=== PATIENT | female | born 1965 | race Caucasian/White ===

== ENCOUNTER 2020-04-01 13:54 | Outpatient (REF) | payer OTHER, SELFPAY ==
[2020-04-01 16:38] LABS: Hematocrit 41.9 % (37-47); Hemoglobin 13.8 g/dl (12.0-16.0); Mean Corpuscular HGB Conc 32.9 g/dl (31.0-35.0); Mean Corpuscular Hemoglobin 31.4 pg (27.0-33.0); Mean Corpuscular Volume 95.2 fL (80-98); Platelet Count 261 X10*3/uL (160-400); Red Cell Distribution Width 12.9 % (11.0-16.0); White Blood Count 8.7 X10*3/uL (4.8-10.8)
[2020-04-01 17:05] LABS: Alanine Aminotransferase 13 U/L (0-31); Albumin Level 4.3 g/dL (3.5-5.0); Alkaline Phosphatase 83 U/L (39-117); Anion Gap 16 (12-20); Aspartate Amino Transferase 20 U/L (5-31); Bilirubin Total 1.1 mg/dL (0.0-1.0); Blood Urea Nitrogen 8 mg/dL (9-16); Calcium 9.2 mg/dL (8.4-10.2); Carbon Dioxide 28 mmol/L (22-29); Chloride 103 mmol/L (96-108); Cholesterol 165 mg/dL; Estimated Glomerular Filt Rate > 60; Glucose Fasting 97 mg/dL (60-99); HDL Cholesterol 61 mg/dL; LDL Cholesterol Calculated 86 mg/dl; Potassium 4.4 mmol/l (3.3-5.1); Sodium 143 mmol/L (135-145); Total Protein 7.2 g/dL (6.5-8.0); Triglycerides 91 mg/dL
[2020-04-01 17:07] LABS: Creatinine Urine 33.69 mg/dL; Microalbumin Urine < 5.0 mg/L
[2020-04-01 17:27] LABS: Thyroid Stimulating Hormone 1.47 mIU/mL (0.32-4.0)
[2020-04-02 05:33] LABS: Estimated Average Glucose 108 mg/dL; Hemoglobin A1c % 5.4 %
== END 2020-04-01 13:55 | disposition home or self-care (01) ==
LOC: HO.HMGCLDS 13:54
PROVIDERS: PCP Internal Medicine; Visit Provider Internal Medicine
DX: F32.9 Major depressive disorder, single episode, unspecified (principal); R32 Unspecified urinary incontinence; I25.10 Atherosclerotic heart disease of native coronary artery without angina pectoris; I42.9 Cardiomyopathy, unspecified; R73.9 Hyperglycemia, unspecified; E78.5 Hyperlipidemia, unspecified; G62.9 Polyneuropathy, unspecified
CPT/HCPCS: 36415; 80053; 80061; 82043; 83036; 84443; 85027

== ENCOUNTER 2020-04-21 10:39 | Outpatient (REF) | payer OTHER, SELFPAY ==
--- NOTE | 2020-04-21 10:42 | MM_ITS ---
EXAMINATION: MM SCREENING DIGITAL MAMMOGRAPHY, BILATERAL CLINICAL INFORMATION: Screening. Asymptomatic. Age 54, prior outside mammography requested. The lifetime risk of breast cancer based on the Tyrer-Cuzick Model is 12%. COMPARISON: None. TECHNIQUE: Digital mammography is performed in craniocaudal and mediolateral oblique views along with computer-aided detection (CAD). FINDINGS: There are scattered areas of fibroglandular density (ACR BI-RADS breast composition Category b). There are no significant masses, abnormal calcifications, or other abnormalities. There are numerous bilateral vascular calcifications. The skin contours are smooth. MM/MM screening mammo BI IMPRESSION: No mammographic evidence of malignancy. ASSESSMENT: BI-RADS 2: Benign RECOMMENDATION: Routine annual mammography screening. This patient's information was entered into a reminder system with a target due date for their next mammogram.
== END 2020-04-21 10:40 | disposition home or self-care (01) ==
LOC: HO.MAMMO 10:39
PROVIDERS: PCP Internal Medicine; Visit Provider Internal Medicine
DX: Z12.31 Encounter for screening mammogram for malignant neoplasm of breast (principal); F32.9 Major depressive disorder, single episode, unspecified
CPT/HCPCS: 77067

== ENCOUNTER → 2020-05-04 08:32 | Outpatient (BNVA) | payer OTHER, SELFPAY | PROVIDERS: PCP Internal Medicine; Visit Provider Orthopaedic Surgery | DX: M65.312 Trigger thumb, left thumb (principal); M65.331 Trigger finger, right middle finger; Z79.02 Long term (current) use of antithrombotics/antiplatelets | CPT/HCPCS: 20550; 99202; 99214; J1100 ==

== ENCOUNTER 2020-08-30 16:07 | Outpatient (REF) | payer OTHER, SELFPAY ==
--- NOTE | ~2020-08-30 | XR_ITS ---
EXAMINATION: XR SHOULDER, RIGHT CLINICAL INFORMATION: Pain right shoulder COMPARISON: Shoulder radiographs 01/19/2020 TECHNIQUE: Right shoulder is imaged in 3 views. FINDINGS: There are multiple calcifications in region of distal superior rotator cuff consistent with calcific tendinosis. There is no fracture, dislocation, or destructive process. No erosive change. The glenohumeral joint is normal. The acromioclavicular alignment is normal. There are scattered vascular calcifications right axilla and upper arm. XR/XR shoulder RT min 2V IMPRESSION: Calcific tendinosis distal superior rotator cuff.
== END 2020-08-30 16:08 | disposition home or self-care (01) ==
LOC: HO.HMGCX 16:07
PROVIDERS: PCP Internal Medicine; Visit Provider Hospitalist
DX: M25.511 Pain in right shoulder (principal)
CPT/HCPCS: 73030

== ENCOUNTER 2022-02-20 12:01 | Emergency (ER) | payer OTHER, SELFPAY ==
--- NOTE | ~2022-02-20 | XR_ITS ---
EXAMINATION: XR LUMBOSACRAL SPINE CLINICAL INFORMATION: Lower back pain COMPARISON: None TECHNIQUE: AP and lateral views of the lumbar spine with an additional coned down lateral spot view of the lumbosacral junction. FINDINGS: 5 non-rib bearing lumbar type vertebral bodies are seen. No compression fracture seen. Multilevel degenerative disc disease greatest at L4-L5. Multilevel facet arthropathy greatest in the lower lumbar spine. Bilateral sacroiliac osteoarthritis. XR/XR lumbar spine 2-3V IMPRESSION: Multilevel degenerative changes, greater than typically seen for the patient's age, but no acute osseous abnormality.
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
[2022-02-20 12:48] VITALS: BP 157/94; PULSE 82; RESP 18; TEMP 36.4; O2SAT 98; BMI 28.0
--- NOTE | 2022-02-20 12:53 | PC.NURSE ---
pt not actively SI at this time reports recent SI attempt prior to recent admission at APTU at [facility]. reports she is here d/t increasing depression and no assistance was offered s/p dc from inpatient this morning. pt reports recieving 2mg ativan prior to dc.
[2022-02-20 13:12] LABS: Amphetamine Screen Urine Not Detected (Not Detect); Barbiturates, Urine Not Detected (Not Detect); Benzodiazepines Screen Urine Not Detected (Not Detect); Cannabinoid Screen Urine POSITIVE (Not Detect); Cocaine Screen Urine Not Detected (Not Detect); Fentanyl, urine Not Detected (Not Detect); Opiate Screen Urine Not Detected (Not Detect); Phencyclidine Screen Urine Not Detected (Not Detect)
[2022-02-20 13:30] LABS: MANUAL DIFF FLAG NO
[2022-02-20 13:35] LABS: Basophils Absolute Auto 0.1 X10*3/uL (0.0-0.2); Basophils Percent Auto 0.8 % (0-2); Eosinophils Absolute Auto 0.3 X10*3/uL (0.0-0.4); Eosinophils Percent Auto 2.6 % (0-4); Hematocrit 36.5 % (37.0-47.0); Hemoglobin 12.1 g/dl (12.0-16.0); Imm Gran Abs Auto 0.04 X10*3/uL (0.00-0.03); Imm Gran Pct Auto 0.4 % (0.0-0.4); Lymphocytes Percent Auto 40.4 % (20-40); Mean Corpuscular HGB Conc 33.2 g/dl (31.0-35.0); Mean Corpuscular Hemoglobin 30.5 pg (27.0-33.0); Mean Corpuscular Volume 91.9 fL (80.0-98.0); Monocytes Absolute Auto 0.7 X10*3/uL (0.1-1.2); Monocytes Percent Auto 6.5 % (2-11); Neutrophils Absolute Auto 4.9 x10*3/uL (2.0-8.3); Neutrophils Percent Auto 49.3 % (45-73); Platelet Count 297 X10*3/uL (160-400); Red Blood Count 3.97 X10*6/uL (4.20-5.50); Red Cell Distribution Width 14.5 % (11.0-16.0)
[2022-02-20 13:46] LABS: COVID-19 Test Negative (Negative); IDNOW Serial# 16C4AD1C
[2022-02-20 13:48] LABS: Ethanol < 10 mg/dL
[2022-02-20 13:49] LABS: Alanine Aminotransferase 17 U/L (0-31); Albumin Level 3.7 g/dL (3.5-5.0); Alkaline Phosphatase 84 U/L (39-117); Anion Gap 15 (12-20); Aspartate Amino Transferase 27 U/L (5-31); Bilirubin Total 1.1 mg/dL (0.0-1.0); Blood Urea Nitrogen 12 mg/dL (9-16); Carbon Dioxide 27 mmol/L (22-29); Chloride 104 mmol/L (96-108); Creatinine Clr Calc Pharmacy 108.5; Estimated Glomerular Filt Rate > 60; Glucose Random 93 mg/dL (60-115); Potassium 5.1 mmol/L (3.3-5.1); Sodium 141 mmol/L (135-145); Total Protein 6.8 g/dL (6.5-8.0)
--- NOTE | 2022-02-20 14:23 | MHC.CARE ---
CARE Team left with [facility] SW to discuss PTs discharge plan.
--- NOTE | 2022-02-20 14:34 | MHC.CARE ---
CARE Team met with Pt who presented to [facility] ED at 1201 after being discharged from [facility] today 1123am. Pt stated [facility] told me to come here if I didn't like there discharge plan. Pt states that she was not provided discharge plan or referrals. Pt stated feeling frustrated living on third floor- and having to walk to the third floor and she currently does not have the keys and the [facility]TU did not help her find a way to get back into her apartment at discharge. Pt stated that she has passive thoughts to jump off of the balcony in third floor apartment.
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
== END 2022-02-20 16:28 | disposition home or self-care (01) ==
PROVIDERS: Emergency Provider Emergency Medicine; PCP Internal Medicine
DX: F32.9 Major depressive disorder, single episode, unspecified (principal); M54.50 Low back pain, unspecified; S00.83XA Contusion of other part of head, initial encounter; W19.XXXA Unspecified fall, initial encounter; R53.81 Other malaise; G62.9 Polyneuropathy, unspecified; I10 Essential (primary) hypertension; E78.5 Hyperlipidemia, unspecified; F17.210 Nicotine dependence, cigarettes, uncomplicated; F12.90 Cannabis use, unspecified, uncomplicated; Z20.822 Contact with and (suspected) exposure to COVID-19; Z91.51 Personal history of suicidal behavior; Z62.810 Personal history of physical and sexual abuse in childhood; Z79.82 Long term (current) use of aspirin; Z79.02 Long term (current) use of antithrombotics/antiplatelets; Z79.899 Other long term (current) drug therapy; Y93.9 Activity, unspecified; Y92.039 Unspecified place in apartment as the place of occurrence of the external cause; Y99.9 Unspecified external cause status
CPT/HCPCS: 36415; 72100; 80053; 80307; 82077; 85025; 87635; 99284

== ENCOUNTER 2022-04-04 10:35 | Inpatient (IN) | payer OTHER, SELFPAY ==
[2022-04-04] VITALS (10 sets, daily range): BP systolic 88–171; BP diastolic 54–110; PULSE 77–98; RESP 16–18; TEMP 35.9–36.7; O2SAT 98–100; BMI 29.3
--- NOTE | ~2022-04-04 | CT_ITS ---
EXAMINATION: CT HEAD WITHOUT CONTRAST CLINICAL INFORMATION: Syncope COMPARISON: 10/02/2018 TECHNIQUE: Contiguous axial imaging was performed from the skull base to vertex without intravenous administration of contrast. This CT examination was performed using dose optimization techniques as appropriate, variously including the following: *Automated exposure control *Adjustment of mA and/or kV according to patient size (this includes techniques or standardized protocols for targeted exams where dose is matched to indication/reason for exam; i.e. extremities or head) *Use of iterative reconstruction technique DLP: 646 mGy-cm FINDINGS: There is no evidence of acute intracranial hemorrhage or territorial infarction. No abnormal mass effect or midline shift is seen. Reeves to white matter differentiation is well preserved. No extra-axial fluid collections are identified. No hydrocephalus. No significant volume loss. Fairly extensive patchy and confluent subcortical, periventricular and deep white matter low-attenuation changes redemonstrated. No acute osseous or soft tissue abnormality. The mastoid air cells and visualized portions of the paranasal sinuses are well aerated. CT/CT head/brain wo IV con IMPRESSION: No acute intracranial pathology. Stable moderate to severe diffuse white matter changes. Statistically this relates to chronic small vessel ischemic disease, however other etiologies such as demyelinating disease could also be contributing..
--- NOTE | ~2022-04-04 | XR_ITS ---
EXAMINATION: XR CHEST CLINICAL INFORMATION: Syncope COMPARISON: January 19, 2020 TECHNIQUE: 2 views of the chest were obtained. FINDINGS: No significant abnormality is noted involving the heart, lungs, mediastinum, bony thorax or soft tissues. There is calcification of anterior longitudinal ligament. XR/XR chest 2V IMPRESSION: No acute disease
--- NOTE | 2022-04-04 11:22 | ECG_ITS ---
Test Reason : SYNCOPE Blood Pressure : / mmHG Vent. Rate : 086 BPM Atrial Rate : 086 BPM P-R Int : 168 ms QRS Dur : 090 ms QT Int : 412 ms P-R-T Axes : 023 -33 023 degrees QTc Int : 493 ms Normal sinus rhythm Left anterior fascicular block Intra-ventricular conduction delay Minimal voltage criteria for LVH, may be normal variant ( R in aVL ) Prolonged QT Abnormal ECG When compared with ECG of 19-JAN-2020 13:04, No significant change was found Referred By: Generic ED Physician Electronically Signed By:MARLENE NORRIS MD
[2022-04-04 11:40] LABS: MANUAL DIFF FLAG NO
[2022-04-04 11:42] LABS: Basophils Percent Auto 0.5 % (0-2); Eosinophils Absolute Auto 0.1 X10*3/uL (0.0-0.4); Eosinophils Percent Auto 1.1 % (0-4); Hematocrit 41.7 % (37.0-47.0); Imm Gran Abs Auto 0.03 X10*3/uL (0.00-0.03); Imm Gran Pct Auto 0.5 % (0.0-0.4); Lymphocytes Absolute Auto 2.5 X10*3/uL (1.2-4.9); Lymphocytes Percent Auto 37.4 % (20-40); Mean Corpuscular HGB Conc 33.6 g/dl (31.0-35.0); Mean Corpuscular Hemoglobin 30.3 pg (27.0-33.0); Mean Corpuscular Volume 90.3 fL (80.0-98.0); Mean Platelet Volume 10.7 fL (9.4-12.3); Monocytes Absolute Auto 0.5 X10*3/uL (0.1-1.2); Monocytes Percent Auto 6.9 % (2-11); Neutrophils Absolute Auto 3.6 x10*3/uL (2.0-8.3); Neutrophils Percent Auto 53.6 % (45-73); Platelet Count 276 X10*3/uL (160-400); Red Blood Count 4.62 X10*6/uL (4.20-5.50); Red Cell Distribution Width 13.2 % (11.0-16.0); White Blood Count 6.7 X10*3/uL (4.8-10.8)
--- NOTE | 2022-04-04 11:53 | ED_ITS ---
HPI - General Adult General Chief complaint: Syncope Stated complaint: fall on sunday Time Seen by Provider: 04/04/22 11:53 Source: patient and EMS Mode of arrival: EMS Limitations: no limitations History of Present Illness HPI narrative: Patient is a 56 year old assigned female at with a history of depression and CAD presenting to the emergency department today with multiple near snycopal episodes. Patient states that over the last few weeks she has had multiple near syncopal episodes. Patient states that she stopped taking her carvadilol because she was worried it was her blood pressure that was doing it. Patient states that she does not want to return home and would rather be admitted or placed in short term rehab to have help taking care of this issue. Patient denies any abdominal pain, nausea, vomiting, fever, chills, blurry vision, double vision, loss of vision, chest pain, difficulty breathing, shortness of breath, back pain, night sweats, pain with urination, increased urinary frequency, increased urinary urgency, vaginal bleeding, vaginal discharge, blood in her urine or stool, recent trauma or falls, bowel incontinence, bladder incontinence, bowel retention, bladder retention, or any other complaints at this time. Onset (ago): week(s) Severity scale (1-10): 2 Relieving factors: none Exacerbating factors: none Associated symptoms: denies other symptoms Treatments prior to arrival: none Related Data Home Medications Medication Instructions Recorded Confirmed [id number] 1 tab PO DAILY 03/01/22 03/01/22 fumarate 7.5 mg-folic acid 400 mcg tablet Previous Rx's Medication Instructions Recorded blood pressure monitor #1 ea 04/29/20 atorvastatin 80 mg tablet 80 mg PO DAILY #90 tabs 03/01/22 carvedilol 25 mg tablet 25 mg PO BID #180 tabs 03/01/22 clopidogrel 75 mg tablet 75 mg PO DAILY #90 tabs 03/01/22 gabapentin 400 mg capsule 800 mg PO .4 times a day #180 caps 03/01/22 pantoprazole 20 mg tablet,delayed 20 mg PO DAILY #90 tabs 03/01/22 release aspirin 81 mg tablet,delayed 81 mg PO DAILY #90 tabs 03/13/22 release duloxetine 60 mg capsule,delayed 60 mg PO DAILY #90 caps 03/13/22 release Allergies Allergy/AdvReac Type Severity Reaction Status Date / Time aspirin [ASPIRIN] Allergy Unknown SENSITIVITY Verified 03/01/22 09:49 lisinopril Allergy Unknown falls, Verified 03/01/22 09:49 muscle weakness Review of Systems Constitutional: Constitutional: Reports no additional constitutional complaints, Denies chills, Denies fever(s) and Denies night sweats Eyes: Eyes: Reports no additional eye complaints, Denies blurry vision, Denies change in vision, Denies diplopia, Denies eye discharge, Denies loss of vision and Denies eye pain ENT: Denies dizziness Cardiovascular: Cardiovascular: Reports no additional cardiovascular complaints, Denies chest pain, Denies lightheadedness, Denies Loss of Consciousness and Denies dyspnea Respiratory: Respiratory: Reports no additional respiratory complaints and Denies dyspnea Gastrointestinal: Gastrointestinal: Reports no additional gastrointestinal complaints, Denies abdominal pain, Denies melena, Denies hematochezia, Denies change in bowel habits and Denies change in stool character Genitourinary: Genitourinary: Denies hematuria, Denies urinary frequency, Denies dysuria, Denies urinary incontinence, Denies urinary hesitancy and Denies urinary urgency Musculoskeletal: Musculoskeletal: Reports no additional musculoskeletal complaints, Denies numbness and Denies tingling Neurologic: Denies dizziness, Denies loss of vision, Denies numbness and Denies tingling Psychiatric: Psychiatric: Reports no additional psychiatric complaints Endocrine: Endocrine: Reports no additional endocrine complaints Hematologic/Lymphatic: Hematologic/Lymphatic: Reports no additional hematologic/lymphatic complaints Allergic/Immunologic: Allergic/Immunologic: Reports no additional allerg ic/immunologic complaints [facility] Past Medical History Attestation statement: The following information was validated with the patient. Source: old records reviewed Medical History CAD (coronary artery disease) Cardiomyopathy Depression Dyslipidemia GERD (gastroesophageal reflux disease) History of mammogram HTN (hypertension) Hyperglycemia Neuropathy Normal Pap smear Peripheral neuropathy Urinary incontinence Surgical History Breast abscess CTS (carpal tunnel syndrome) H/O cardiac catheterization (~01/2020) H/O colonoscopy History of ankle surgery Family History Family History Father No problems noted. Mother No problems noted. Brother No problems noted. Sister No problems noted. Sister No problems noted. Son No problems noted. Social History Social History Housing: Apartment Patient Tobacco Use Status: Former Tobacco user Cigarettes Per Day: 5 Years Smoked: 20 e-Cigarette/Vaping Use: Never Used Second Hand Smoke Exposure: No Use of substances other than those prescribed or required for medical reasons: No Substance Use Type: Marijuana Advance Directives: No Current occupational status: unemployed Cognitive needs: No Hearing needs: No Vision needs: Yes Physical Exam ED Vital Signs: Vital Signs - 24 hr 04/04/22 11:18 04/04/22 15:04 04/04/22 15:14 Temperature 96.7 F L 97.9 F Pulse Rate 98 78 79 Respiratory Rate 18 18 Blood Pressure 90/70 143/85 H 153/93 H Pulse Oximetry 100 100 Oxygen Delivery Method Room Air Room Air 04/04/22 15:15 04/04/22 15:17 04/04/22 16:06 Temperature Pulse Rate 83 92 92 Respiratory Rate Blood Pressure 96/57 L 122/54 L 122/54 L Pulse Oximetry Oxygen Delivery Method 04/04/22 16:49 04/04/22 16:49 Temperature 98.0 F Pulse Rate 77 Respiratory Rate 16 Blood Pressure 155/89 H Pulse Oximetry 98 98 Oxygen Delivery Method Room Air Room Air BMI result Body Mass Index 29.3 Const General: cooperative, no acute distress, alert and awake Nutritional Appearance: well nourished Orientation/consciousness: patient oriented x3 Limitations: no limitations HENMT Head: Yes normal to inspection and Yes atraumatic Ears: hearing grossly normal bilaterally and external ears normal General nose exam: Normal external nose present, no nasal discharge noted and no epistaxis Face and sinus: Yes normal facial exam, No abrasion and No laceration Mouth: Normal oral and palatal mucosa present, no drooling and no muffled voice Eyes General: appearance normal, both eyes and all related structures Periorbital: periorbital findings normal Eyelids: Yes eyelids normal Conjunctivae: conjunctivae normal Pupils: Equal, round and reactive pupils present EOM: EOMs intact bilaterally Neck Neck: Yes normal visual inspection, Yes full ROM and Yes no lymphadenopathy Chest Chest palpation & inspection: normal inspection of the chest Resp Effort & Inspection: normal respiratory effort and able to speak in complete sentences Auscultation: clear to auscultation bilaterally Cardio Rate: regular rate Rhythm: regular rhythm GI Inspection: Yes normal to inspection Neuro General: patient oriented x3 and moves all extremities Cranial nerves: Yes Equal, round and reactive pupils present Cognition (Neuro): normal cognition Motor exam (neuro): 5/5 motor strength present throughout Sensory Exam: Normal double simultaneous stimulation for sensation Coordination: [id number]-[id number] test normal Extrem General: Yes normal to inspection, Yes full ROM and Yes capillary refill normal Psych Appearance: grossly normal Mental Status: mental status grossly normal Affect: normal affect Attitude: cooperative Thought process: Normal thought process present Thought content: Normal thought content present Insight: Good insight present (Psych) Medical Decision Making MDM Narrative Medical decision making narrative: Patient is a 56 year old assigned female at with a history of depression and CAD presenting to the emergency department today with intermittent near syncopal episodes. Patient's physical exam was unremarkable. Patient's blood work was unremarkable. Patient's EKG was unremarkable. Patient's chest x-ray and head CT showed no acute process. Patient's orthostatic vital signs were initially positive with a drop from 140s systolic to 90s systolic from lying to sitting. Patient to get an additional liter of fluids and have them repeated, if normal she will proceed with placement / PT evaluation, if abnormal, will attempt admission. I explained my physical exam findings as well as all test results to the patient. I answered all questions asked by the patient. Medical Records Medical records reviewed: Yes I reviewed the patient's medical records. Lab Data Lab results reviewed: Yes I reviewed the patient's lab results. Result diagrams: 04/04/22 11:34 04/04/22 11:34 Labs: Lab Results 04/04/22 04/04/22 04/04/22 Range/Units 11:34 11:34 11:34 WBC 6.7 (4.8-10.8) X10*3/uL RBC 4.62 (4.20-5.50) X10*6/uL Hgb 14.0 (12.0-16.0) g/dl Hct 41.7 (37.0-47.0) % MCV 90.3 (80.0-98.0) fL MCH 30.3 (27.0-33.0) pg MCHC 33.6 (31.0-35.0) g/dl RDW 13.2 (11.0-16.0) % Plt Count 276 (160-400) X10*3/uL MPV 10.7 (9.4-12.3) fL Immature Gran % (Auto) 0.5 H (0.0-0.4) % Neut % (Auto) 53.6 (45-73) % Lymph % (Auto) 37.4 (20-40) % [place] % (Auto) 6.9 (2-11) % Eos % (Auto) 1.1 (0-4) % Baso % (Auto) 0.5 (0-2) % Lymph # (Auto) 2.5 (1.2-4.9) X10*3/uL [place] # (Auto) 0.5 (0.1-1.2) X10*3/uL Eos # (Auto) 0.1 (0.0-0.4) X10*3/uL Baso # (Auto) 0.0 (0.0-0.2) X10*3/uL Abs Immat Gran (auto) 0.03 (0.00-0.03) X10*3/uL Absolute Neuts (auto) 3.6 (2.0-8.3) x10*3/uL Absolute Nucleated RBC 0.000 (0.0-0.012) X10*3/uL Nucleated RBC % (auto) 0.0 (0.0-0.2) /100WBC Sodium 137 (135-145) mmol/L Potassium 3.9 D (3.3-5.1) mmol/L Chloride 101 (96-108) mmol/L Carbon Dioxide 23 (22-29) mmol/L Anion Gap 17 (12-20) BUN 8 L (9-16) mg/dL Creatinine 0.75 (0.5-1.4) mg/dL Estim Creat Clear Calc 95.8 Estimated GFR > 60 Random Glucose 106 (60-115) mg/dL Calcium 9.3 (8.4-10.2) mg/dL Magnesium (1.6-2.6) mg/dL Total Bilirubin 2.2 H (0.0-1.0) mg/dL Direct Bilirubin 0.8 H (0.0-0.5) mg/dL AST 23 (5-31) U/L ALT 8 (0-31) U/L Alkaline Phosphatase 91 (39-117) U/L Troponin I High Sens 8.2 (<3.5-17.0) ng/L Total Protein 7.5 (6.5-8.0) g/dL Albumin 4.3 (3.5-5.0) g/dL Lipase 11 (8-78) U/L COVID-19 ([facility]) (Negative) COVID-19 Clin Com 04/04/22 04/04/22 Range/Units 14:16 14:17 WBC (4.8-10.8) X10*3/uL RBC (4.20-5.50) X10*6/uL Hgb (12.0-16.0) g/dl Hct (37.0-47.0) % MCV (80.0-98.0) fL MCH (27.0-33.0) pg MCHC (31.0-35.0) g/dl RDW (11.0-16.0) % Plt Count (160-400) X10*3/uL MPV (9.4-12.3) fL Immature Gran % (Auto) (0.0-0.4) % Neut % (Auto) (45-73) % Lymph % (Auto) (20-40) % [place] % (Auto) (2-11) % Eos % (Auto) (0-4) % Baso % (Auto) (0-2) % Lymph # (Auto) (1.2-4.9) X10*3/uL [place] # (Auto) (0.1-1.2) X10*3/uL Eos # (Auto) (0.0-0.4) X10*3/uL Baso # (Auto) (0.0-0.2) X10*3/uL Abs Immat Gran (auto) (0.00-0.03) X10*3/uL Absolute Neuts (auto) (2.0-8.3) x10*3/uL Absolute Nucleated RBC (0.0-0.012) X10*3/uL Nucleated RBC % (auto) (0.0-0.2) /100WBC Sodium (135-145) mmol/L Potassium (3.3-5.1) mmol/L Chloride (96-108) mmol/L Carbon Dioxide (22-29) mmol/L Anion Gap (12-20) BUN (9-16) mg/dL Creatinine (0.5-1.4) mg/dL Estim Creat Clear Calc Estimated GFR Random Glucose (60-115) mg/dL Calcium (8.4-10.2) mg/dL Magnesium 1.7 (1.6-2.6) mg/dL Total Bilirubin (0.0-1.0) mg/dL Direct Bilirubin (0.0-0.5) mg/dL AST (5-31) U/L ALT (0-31) U/L Alkaline Phosphatase (39-117) U/L Troponin I High Sens (<3.5-17.0) ng/L Total Protein (6.5-8.0) g/dL Albumin (3.5-5.0) g/dL Lipase (8-78) U/L COVID-19 ([facility]) Negative (Negative) COVID-19 Clin Com See Note Imaging Data Chest x-ray: Attestation: I personally reviewed and interpreted this imaging study as follows: My impression: No acute process. Radiologist's impression: EXAMINATION: XR CHEST CLINICAL INFORMATION: Syncope COMPARISON: January 19, 2020 TECHNIQUE: 2 views of the chest were obtained. FINDINGS: No significant abnormality is noted involving the heart, lungs, mediastinum, bony thorax or soft tissues. There is calcification of anterior longitudinal ligament. XR/XR chest 2V IMPRESSION: No acute disease Dictated By: Yoan Wilkinson MD Signed By: Electronically signed by Yoan Wilkinson MD 04/04/[address] scan - head: Attestation: I personally reviewed and interpreted this imaging study as follows: My impression: No acute process. Radiologist's impression: EXAMINATION: CT HEAD WITHOUT CONTRAST CLINICAL INFORMATION: Syncope? COMPARISON: 10/02/2018 TECHNIQUE: Contiguous axial imaging was performed from the skull base to vertex without intravenous administration of contrast. This CT examination was performed using dose optimization techniques as appropriate, variously including the following: *Automated exposure control *Adjustment of mA and/or kV according to patient size (this includes techniques or standardized protocols for targeted exams where dose is matched to indication/reason for exam; i.e. extremities or head) *Use of iterative reconstruction technique DLP: 646 mGy-cm FINDINGS: There is no evidence of acute intracranial hemorrhage or territorial infarction. No abnormal mass effect or midline shift is seen. Reeves to white matter differentiation is well preserved. No extra-axial fluid collections are identified. No hydrocephalus. No significant volume loss. Fairly extensive patchy and confluent subcortical, periventricular and deep white matter low-attenuation changes redemonstrated. No acute osseous or soft tissue abnormality. The mastoid air cells and visualized portions of the paranasal sinuses are well aerated. CT/CT head/brain wo IV con IMPRESSION: No acute intracranial pathology. Stable moderate to severe diffuse white matter changes. Statistically this relates to chronic small vessel ischemic disease, however other etiologies such as demyelinating disease could also be contributing.. Dictated By: Eric Disla MD Signed By: Electronically signed by Eric Disla MD 04/04/22 1400 ECG Data Attestation: I personally reviewed and interpreted this ECG as follows: Prior ECG tracings: available for review Interpretation: Vent. Rate: 086 BPM ? ? Atrial Rate: 086 BPM P-R Int: 168 ms? QRS Dur: 090 ms QT Int: 412 ms ? ? ? P-R-T Axes: 023 -33 023 degrees QTc Int: 493 ms ? Normal sinus rhythm Left axis deviation Minimal voltage criteria for LVH, may be normal variant (R in aVL) Prolonged QT Abnormal ECG When compared with ECG of 19-JAN-2020 13:04, No significant change was found DD/ [id number] Discharge Plan Discharge Clinical Impression: Near syncope Patient Disposition: Still a Patient Prescriptions: No Action duloxetine 60 mg capsule,delayed release(DR/EC) 60 mg PO DAILY Qty: 90 0RF aspirin 81 mg tablet,delayed release (DR/EC) 81 mg PO DAILY Qty: 90 0RF (DME) blood pressure monitor Kit See Rx Instructions .ROUTE .MEDSUPPLY Qty: 1 0RF Rx Instructions: BP MONITOR qilodbwf-oyi-knhk fum-folic ac 7.5 mg iron-400 mcg tablet 1 tab PO DAILY atorvastatin 80 mg tablet 80 mg PO DAILY Qty: 90 3RF carvedilol 25 mg tablet 25 mg PO BID Qty: 180 3RF clopidogrel 75 mg tablet 75 mg PO DAILY Qty: 90 3RF gabapentin 400 mg capsule 800 mg PO .4 times a day Qty: 180 3RF pantoprazole 20 mg tablet,delayed release (DR/EC) 20 mg PO DAILY Qty: 90 3RF
[2022-04-04 12:02] LABS: Alanine Aminotransferase 8 U/L (0-31); Albumin Level 4.3 g/dL (3.5-5.0); Alkaline Phosphatase 91 U/L (39-117); Anion Gap 17 (12-20); Aspartate Amino Transferase 23 U/L (5-31); Bilirubin Direct 0.8 mg/dL (0.0-0.5); Bilirubin Total 2.2 mg/dL (0.0-1.0); Blood Urea Nitrogen 8 mg/dL (9-16); Calcium 9.3 mg/dL (8.4-10.2); Carbon Dioxide 23 mmol/L (22-29); Chloride 101 mmol/L (96-108); Creatinine Clr Calc Pharmacy 95.8; Estimated Glomerular Filt Rate > 60; Glucose Random 106 mg/dL (60-115); Lipase 11 U/L (8-78); Potassium 3.9 mmol/L (3.3-5.1); Sodium 137 mmol/L (135-145); Total Protein 7.5 g/dL (6.5-8.0)
[2022-04-04 12:07] LABS: Troponin-I High Sensitivity 8.2 ng/L (<3.5-17.0)
[2022-04-04 14:41] LABS: Magnesium 1.7 mg/dL (1.6-2.6)
[2022-04-04 14:57] LABS: COVID-19 Test Negative (Negative); IDNOW Serial# 9DB6401D
[2022-04-04] MEDS: 0.9 % Sodium Chloride 1,000 ML 999 ML IV ×3 (15:02→20:46)
--- NOTE | 2022-04-04 16:09 | PC.NURSE ---
Pt aox3. Case management at bedside. NS fluids still running, 700cc remain in the bag at this time.
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
--- NOTE | 2022-04-04 18:48 | PC.NURSE ---
Second liter of NS started. Once complete do orthostatic blood pressure per Dr. Garcia's order. Pt aware of plan of care.
--- NOTE | 2022-04-04 20:41 | PC.NURSE ---
Orthostatic VS complete. Pt.'s BP dropped to 88/60 from sitting to standing. Notifying provider
--- NOTE | 2022-04-04 22:47 | PC.NURSE ---
Pt aox4. Reports left side rib pain 02/18. MD aware.
[2022-04-04] MEDS: Acetaminophen 325 MG TABLET 650 MG PO (23:14)
[2022-04-05] VITALS (10 sets, daily range): BP systolic 75–150; BP diastolic 48–87; PULSE 56–86; RESP 14–19; TEMP 36–37; O2SAT 98–99
--- NOTE | 2022-04-05 01:05 | P.HPHOSP_ITS ---
History of Present Illness Date of Service: 04/05/22 Chief Complaint: Syncope This is a 56-year-old female with a pertinent history of coronary artery disease status post stent, major depressive disorder, essential hypertension, mixed hyperlipidemia, peripheral neuropathy who presents to the emergency department f or evaluation of syncope. Patient states she has had 4 episodes of syncope/near syncope in the last 2 weeks. Her last episode was on 04/02, when she tried to get up from toilet seat and lost consciousness. She fell with her face on the bathtub. Patient states she lost consciousness for seconds . No tongue bite, postictal confusion, rhythmic jerking movement of extremities. Patient states she has had dizziness every time she tries to get up from sitting position that has been ongoing for the last 3 weeks. Patient recently started carvedilol about 1 month ago for elevated blood pressure. No other change in medications. Denies vomiting, diarrhea or volume loss. No palpitations, chest discomfort, shortness of breath. Patient is worried about her falls and hence decided to present to the ER. In the emergency department, orthostatic vital signs were positive even after IV fluid resuscitation. Review of Systems Review of Systems: All 13 review of systems are negative except as noted in H PI [facility] Medical History CAD (coronary artery disease) Cardiomyopathy Depression Dyslipidemia GERD (gastroesophageal reflux disease) History of mammogram HTN (hypertension) Hyperglycemia Neuropathy Normal Pap smear Peripheral neuropathy Urinary incontinence Family History Father No problems noted. Mother No problems noted. Brother No problems noted. Sister No problems noted. Sister No problems noted. Son No problems noted. Surgical History Breast abscess CTS (carpal tunnel syndrome) H/O cardiac catheterization (~01/2020) H/O colonoscopy History of ankle surgery Social History Housing: Apartment Patient Tobacco Use Status: Former Tobacco user Cigarettes Per Day: 5 Years Smoked: 20 e-Cigarette/Vaping Use: Never Used Second Hand Smoke Exposure: No Use of substances other than those prescribed or required for medical reasons: No Substance Use Type: Marijuana Advance Directives: No Current occupational status: unemployed Cognitive needs: No Hearing needs: No Vision needs: Yes Meds Allergies Allergy/AdvReac Type Severity Reaction Status Date / Time aspirin [ASPIRIN] Allergy Unknown SENSITIVITY Verified 03/01/22 09:49 lisinopril Allergy Unknown falls, Verified 03/01/22 09:49 muscle weakness Active Medications: Current Medications Acetaminophen (Acetaminophen 325 Mg Tablet) 650 mg PO Q6H PRN PRN Reason: Pain, Mild (Pain Scale 1-3) Enoxaparin Sodium (Enoxaparin Sodium 40 Mg/0.4 Ml Syringe) 40 mg SUBCUT Q24H [facility] Melatonin (Melatonin 3 Mg Tablet) 6 mg PO BEDTIME PRN PRN Reason: Insomnia Ondansetron HCl (Ondansetron Hcl 4 Mg/2 Ml Vial) 4 mg IVPUSH Q8H PRN PRN Reason: Nausea and Vomiting Pharmacy Consult (Consult Rx Perform Med Rec) 1 each MISCELLANE ONCE PRN PRN Reason: Consult order Sodium Chloride (0.9 % Sodium Chloride Flush 3 Ml Syringe) 3 ml IVFLUSH QSHIFT [facility] Home Medications Medication Instructions Recorded Confirmed Last Taken Type [id number] 1 tab PO DAILY 03/01/22 03/01/22 Unknown History fumarate 7.5 mg-folic acid 400 mcg tablet Physical Exam Vital Signs and Narrative: Vital Signs: Last Vital Signs Temp 98.6 F 04/05/22 00:26 Pulse 71 04/05/22 00:26 Resp 18 04/05/22 00:26 BP 91/58 L 04/05/22 00:26 Pulse Ox 99 04/05/22 00:26 O2 Del Method 04/05/22 00:26 O2 Flow Rate 98 04/04/22 22:38 BMI result Body Mass Index 29.3 Middle-aged female lying in bed in no distress Neck supple, no JVD Regular rate and rhythm, S1-S2 heard Regular breath sounds bilaterally, no wheezing or crackles appreciated Abdomen soft nontender, no guarding, no rigidity Patient is awake, alert and oriented to self, place, time and person ; no focal motor deficit Psych: Normal mood No pedal edema Results Labs CBC and Chem 7: 04/04/22 11:34 04/04/22 11:34 Labs: Laboratory Results - last 24 hr 04/04/22 04/04/22 04/04/22 11:34 11:34 11:34 MCV 90.3 MCH 30.3 MCHC 33.6 RDW 13.2 Plt Count 276 MPV 10.7 Immature Gran % (Auto) 0.5 H Neut % (Auto) 53.6 Lymph % (Auto) 37.4 [place] % (Auto) 6.9 Eos % (Auto) 1.1 Baso % (Auto) 0.5 Lymph # (Auto) 2.5 [place] # (Auto) 0.5 Eos # (Auto) 0.1 Baso # (Auto) 0.0 Abs Immat Gran (auto) 0.03 Absolute Neuts (auto) 3.6 Absolute Nucleated RBC 0.000 Nucleated RBC % (auto) 0.0 Anion Gap 17 Estim Creat Clear Calc 95.8 Estimated GFR > 60 Random Glucose 106 Calcium 9.3 Magnesium Total Bilirubin 2.2 H Direct Bilirubin 0.8 H AST 23 ALT 8 Alkaline Phosphatase 91 Troponin I High Sens 8.2 Total Protein 7.5 Albumin 4.3 Lipase 11 COVID-19 ([facility]) COVID-19 Clin Com 04/04/22 04/04/22 14:16 14:17 MCV MCH MCHC RDW Plt Count MPV Immature Gran % (Auto) Neut % (Auto) Lymph % (Auto) [place] % (Auto) Eos % (Auto) Baso % (Auto) Lymph # (Auto) [place] # (Auto) Eos # (Auto) Baso # (Auto) Abs Immat Gran (auto) Absolute Neuts (auto) Absolute Nucleated RBC Nucleated RBC % (auto) Anion Gap Estim Creat Clear Calc Estimated GFR Random Glucose Calcium Magnesium 1.7 Total Bilirubin Direct Bilirubin AST ALT Alkaline Phosphatase Troponin I High Sens Total Protein Albumin Lipase COVID-19 ([facility]) Negative COVID-19 Clin Com See Note Imaging Radiologist's Impressions: Impressions Chest X-Ray 04/04/22 12:35 IMPRESSION: No acute disease Head CT 04/04/22 12:45 IMPRESSION: No acute intracranial pathology. Stable moderate to severe diffuse white matter changes. Statistically this relates to chronic small vessel ischemic disease, however other etiologies such as demyelinating disease could also be contributing.. Assessment and Plan (1) Orthostatic hypotension: Status: Acute (2) Syncope: Status: Acute (3) Neuropathy: Status: Acute (4) Dyslipidemia: Status: Acute (5) CAD (coronary artery disease): Status: Acute (6) Depression: Status: Acute Plan This is a 56-year-old female with a pertinent history of coronary artery disease status post stent, major depressive disorder, essential hypertension, mixed hyperlipidemia, peripheral neuropathy who presents to the emergency department for evaluation of syncope. #. Orthostatic syncope -likely due to carvedilol, will discontinue. No concern for volume depletion as the etiology. Patient does have diabetic peripheral neuropathy and also may have underlying autonomic dysfunction leading to orthostasis. Advised increase in salt and water intake and will order compression stocking. Repeat orthostatic vital signs in a.m.. If continues to remain positive, may benefit from fludrocortisone. Check cortisol in a.m.. Physical therapy to evaluate and treat #. Diabetic neuropathy -patient states she is no longer diabetic and is not on any antihyperglycemics. Continue gabapentin #. Major depressive disorder -avoid SSRIs or trazodone/amitriptyline which may worsen orthostatic hypotension. #. Coronary artery disease status post stent -on dual antiplatelet therapy and high-intensity statin DVT prophylaxis: Lovenox 40 mg daily Diet: Regular diet Do not resuscitate Patient will require two night minimum hospital stay for management of orthostatic syncope and prevent future falls. Pending physical therapy eval for safe disposition Quality Stroke Does the patient have a stroke diagnosis?: No VTE Prior VTE?: No VTE Risk Level:: Medical - moderate - high VTE Device Contraindication: N/A - Device Ordered VTE Drug Contraindication: N/A - Med Ordered
--- NOTE | 2022-04-05 01:10 | PC.NURSE ---
Pt aox4. Breaths are even and unlabored. No apparent distress noted. Pt report left side rib pain, 02/18. MD aware.
[2022-04-05] MEDS: Enoxaparin Sodium 40 MG/0.4 ML SYRINGE SUBCUT ×2 (01:11→20:20)
[2022-04-05 04:49] LABS: MANUAL DIFF FLAG NO
[2022-04-05 04:50] LABS: Basophils Percent Auto 0.6 % (0-2); Eosinophils Absolute Auto 0.2 X10*3/uL (0.0-0.4); Eosinophils Percent Auto 2.3 % (0-4); Imm Gran Abs Auto 0.02 X10*3/uL (0.00-0.03); Imm Gran Pct Auto 0.3 % (0.0-0.4); Lymphocytes Absolute Auto 3.3 X10*3/uL (1.2-4.9); Mean Corpuscular HGB Conc 34.4 g/dl (31.0-35.0); Mean Corpuscular Hemoglobin 32.1 pg (27.0-33.0); Mean Corpuscular Volume 93.3 fL (80.0-98.0); Mean Platelet Volume 10.9 fL (9.4-12.3); Monocytes Absolute Auto 0.6 X10*3/uL (0.1-1.2); Neutrophils Percent Auto 42.8 % (45-73); Platelet Count 189 X10*3/uL (160-400); Red Blood Count 3.43 X10*6/uL (4.20-5.50); Red Cell Distribution Width 13.4 % (11.0-16.0); White Blood Count 7.1 X10*3/uL (4.8-10.8)
[2022-04-05 05:15] LABS: Anion Gap 14 (12-20); Blood Urea Nitrogen 9 mg/dL (9-16); Calcium 8.6 mg/dL (8.4-10.2); Carbon Dioxide 21 mmol/L (22-29); Chloride 107 mmol/L (96-108); Creatinine Clr Calc Pharmacy 108.9; Estimated Glomerular Filt Rate > 60; Glucose Random 108 mg/dL (60-115); Potassium 3.8 mmol/L (3.3-5.1); Sodium 138 mmol/L (135-145)
[2022-04-05 05:45] LABS: Cortisol Random 8.3 ug/dL
[2022-04-05] MEDS: Aspirin 81 MG TAB.CHEW PO (07:44)
[2022-04-05] MEDS: Clopidogrel Bisulfate 75 MG TABLET PO (07:44)
[2022-04-05] MEDS: Atorvastatin Calcium 80 MG TABLET PO ×2 (07:44→08:50)
[2022-04-05] MEDS: 0.9 % Sodium Chloride Flush 3 ML SYRINGE IVFLUSH ×3 (07:45→20:21)
[2022-04-05] MEDS: Multivitamin TABLET 1 TAB PO (08:50)
[2022-04-05] MEDS: DULoxetine HCl 60 MG CAPSULE.DR PO (08:50)
[2022-04-05] MEDS: Gabapentin 400 MG CAPSULE 800 MG PO ×4 (08:51→20:18)
[2022-04-05] MEDS: Omeprazole 20 MG CAPSULE.DR PO (08:51)
--- NOTE | 2022-04-05 14:58 | PM.EVENT ---
Event Note Date of Service: 04/05/22 Event Note: Patient seen examined. H&P reviewed. Agree with plan as outlined. No clinical changes since an initial evaluation
--- NOTE | 2022-04-05 16:14 | PC.NURSE ---
1530: Pt sitting in wheelchair in hallway speaking with another patient. no distress noted Pt awake, alert and oriented x 3. skin warm and dry. resp unlabored. denies cp/denies sob
[2022-04-05 23:43] LABS: A. Phagocytphilium DNA,RT-PCR NOT DETECTED (NOT DETECTED); Babesia Microti DNA, RT-PCR NOT DETECTED (NOT DETECTED); Borrelia Miyamotoi,DNA RT-PCR NOT DETECTED (NOT DETECTED); E.Chaffeensis DNA RT-PCR NOT DETECTED (NOT DETECTED); Lyme(Borrelia ssp)DNA RT-PCR NOT DETECTED (NOT DETECTED)
[2022-04-06] VITALS (7 sets, daily range): BP systolic 75–168; BP diastolic 51–83; PULSE 69–80; RESP 14–18; TEMP 36.1–37.2; O2SAT 96–99
[2022-04-06] MEDS: Omeprazole 20 MG CAPSULE.DR PO (05:48)
[2022-04-06 07:16] LABS: MANUAL DIFF FLAG NO
[2022-04-06 07:23] LABS: Basophils Absolute Auto 0.1 X10*3/uL (0.0-0.2); Basophils Percent Auto 0.7 % (0-2); Eosinophils Absolute Auto 0.2 X10*3/uL (0.0-0.4); Eosinophils Percent Auto 2.6 % (0-4); Hemoglobin 11.8 g/dl (12.0-16.0); Imm Gran Abs Auto 0.02 X10*3/uL (0.00-0.03); Imm Gran Pct Auto 0.3 % (0.0-0.4); Lymphocytes Absolute Auto 3.3 X10*3/uL (1.2-4.9); Lymphocytes Percent Auto 43.9 % (20-40); Mean Corpuscular HGB Conc 32.8 g/dl (31.0-35.0); Mean Corpuscular Hemoglobin 30.3 pg (27.0-33.0); Mean Corpuscular Volume 92.3 fL (80.0-98.0); Mean Platelet Volume 11.9 fL (9.4-12.3); Monocytes Absolute Auto 0.7 X10*3/uL (0.1-1.2); Monocytes Percent Auto 8.9 % (2-11); Neutrophils Absolute Auto 3.3 x10*3/uL (2.0-8.3); Neutrophils Percent Auto 43.6 % (45-73); Platelet Count 209 X10*3/uL (160-400); Red Cell Distribution Width 13.3 % (11.0-16.0); White Blood Count 7.6 X10*3/uL (4.8-10.8)
[2022-04-06 07:43] LABS: Alanine Aminotransferase 6 U/L (0-31); Albumin Level 3.7 g/dL (3.5-5.0); Alkaline Phosphatase 86 U/L (39-117); Aspartate Amino Transferase 19 U/L (5-31); Bilirubin Total 1.1 mg/dL (0.0-1.0); Blood Urea Nitrogen 7 mg/dL (9-16); Calcium 9.1 mg/dL (8.4-10.2); Creatinine Clr Calc Pharmacy 105.7; Estimated Glomerular Filt Rate > 60; Glucose Fasting 102 mg/dL (60-99); Total Protein 6.2 g/dL (6.5-8.0)
[2022-04-06 08:17] LABS: Anion Gap 15 (12-20); Carbon Dioxide 26 mmol/L (22-29); Chloride 103 mmol/L (96-108); Sodium 139 mmol/L (135-145)
[2022-04-06] MEDS: Atorvastatin Calcium 80 MG TABLET PO (08:18)
[2022-04-06] MEDS: Aspirin 81 MG TAB.CHEW PO (08:18)
[2022-04-06] MEDS: Clopidogrel Bisulfate 75 MG TABLET PO (08:18)
[2022-04-06] MEDS: Multivitamin TABLET 1 TAB PO (08:18)
[2022-04-06] MEDS: DULoxetine HCl 60 MG CAPSULE.DR PO (08:18)
[2022-04-06] MEDS: Gabapentin 400 MG CAPSULE 800 MG PO ×4 (08:19→19:32)
[2022-04-06] MEDS: 0.9 % Sodium Chloride Flush 3 ML SYRINGE IVFLUSH ×2 (08:20→19:33)
--- NOTE | 2022-04-06 11:59 | P.PNIM_ITS ---
Subjective Subjective Date of Service: 04/06/22 Interval History: No acute issues overnight. This a.m. able to walk around without dizziness or other symptoms Review of Systems Denies chest pain Denies shortness of breath Denies nausea vomiting diarrhea Denies fever chills Physical Exam Vital Signs: Vital Signs: Last Vital Signs Temp 98 F 04/06/22 11:06 Pulse 70 04/06/22 11:06 Resp 18 04/06/22 11:06 BP 122/68 04/06/22 11:06 Pulse Ox 99 04/06/22 11:06 O2 Del Method 04/06/22 11:06 O2 Flow Rate 98 04/04/22 22:38 BMI result Body Mass Index 29.3 Const: Other: Awake alert no acute distress Resp: Other: Clear to auscultation bilaterally; no rales rhonchi or wheezes Cardio: Other: No S4; positive S1-S2; no S3 murmurs rubs gallops GI: Other: Soft nontender nondistended normoactive bowel sounds Extrem: Other: No edema bilaterally Objective Data Active Medications Acetaminophen (Acetaminophen 325 Mg Tablet) 650 mg PO Q6H PRN PRN Reason: Pain, Mild (Pain Scale 1-3) Aspirin (Aspirin 81 Mg Tab.Chew) 81 mg PO DAILY [facility] Last Admin: 04/06/22 08:18 Dose: 81 mg Documented By: PANCHITO Aspirin (Aspirin Enteric Coated 81 Mg Tablet.) 81 mg PO DAILY [facility] Last Admin: 04/06/22 08:10 Dose: Not Given Documented By: PANCHITO Non-Admin Reason: Duplicate Order Atorvastatin Calcium (Atorvastatin Calcium 80 Mg Tablet) 80 mg PO DAILY [facility] Last Admin: 04/06/22 08:18 Dose: 80 mg Documented By: PANCHITO Clopidogrel Bisulfate (Clopidogrel Bisulfate 75 Mg Tablet) 75 mg PO DAILY [facility] Last Admin: 04/06/22 08:18 Dose: 75 mg Documented By: PANCHITO Duloxetine HCl (Duloxetine Hcl 60 Mg Capsule.) 60 mg PO DAILY [facility] Last Admin: 04/06/22 08:18 Dose: 60 mg Documented By: PANCHITO Enoxaparin Sodium (Enoxaparin Sodium 40 Mg/0.4 Ml Syringe) 40 mg SUBCUT Q24H [facility] Last Admin: 04/05/22 20:20 Dose: 40 mg Documented By: FELIZ Gabapentin (Gabapentin 400 Mg Capsule) 800 mg PO QID [facility] Last Admin: 04/06/22 08:19 Dose: 800 mg Documented By: PANCHITO Comments: gave 2 400mg cap Melatonin (Melatonin 3 Mg Tablet) 6 mg PO BEDTIME PRN PRN Reason: Insomnia Multivitamins/Vitamin C (Multivitamin Tablet) 1 tab PO DAILY [facility] Last Admin: 04/06/22 08:18 Dose: 1 tab Documented By: PANCHITO Omeprazole (Omeprazole 20 Mg Capsule.) 20 mg PO DAILY@0630 [facility] Last Admin: 04/06/22 05:48 Dose: 20 mg Documented By: FELIZ Ondansetron HCl (Ondansetron Hcl 4 Mg/2 Ml Vial) 4 mg IVPUSH Q8H PRN PRN Reason: Nausea and Vomiting Pharmacy Consult (Consult Rx Perform Med Rec) 1 each MISCELLANE ONCE PRN PRN Reason: Consult order Sodium Chloride (0.9 % Sodium Chloride Flush 3 Ml Syringe) 3 ml IVFLUSH QSHIFT [facility] Last Admin: 04/06/22 08:20 Dose: 3 ml Documented By: PANCHITO Labs CBC & Chem 7: 04/06/22 05:41 04/06/22 05:41 Labs: Laboratory Results - last 24 hr 04/04/22 04/06/22 04/06/22 15:01 05:41 05:41 MCV 92.3 MCH 30.3 MCHC 32.8 RDW 13.3 Plt Count 209 MPV 11.9 Immature Gran % (Auto) 0.3 Neut % (Auto) 43.6 L Lymph % (Auto) 43.9 H [place] % (Auto) 8.9 Eos % (Auto) 2.6 Baso % (Auto) 0.7 Lymph # (Auto) 3.3 [place] # (Auto) 0.7 Eos # (Auto) 0.2 Baso # (Auto) 0.1 Abs Immat Gran (auto) 0.02 Absolute Neuts (auto) 3.3 Absolute Nucleated RBC 0.000 Nucleated RBC % (auto) 0.0 Anion Gap 15 Estim Creat Clear Calc 105.7 Estimated GFR > 60 Fasting Glucose 102 H Calcium 9.1 Total Bilirubin 1.1 H AST 19 ALT 6 Alkaline Phosphatase 86 Total Protein 6.2 L Albumin 3.7 A.phagocytophil DNA PCR NOT DETECTED Babesia microti DNA PCR NOT DETECTED Borrelia sp DNA (PCR) NOT DETECTED Borrelia miyamotoi (PCR) NOT DETECTED E.chaffeensis DNA (PCR) NOT DETECTED Tick-borne Disease Ab SEE NOTE Assessment and Plan (1) Orthostatic hypotension: Status: Acute (2) HTN (hypertension): Status: Acute (3) CAD (coronary artery disease): Status: Acute Plan This is a 56-year-old female with a pertinent history of coronary artery disease status post stent, major depressive disorder, essential hypertension, mixed hyperlipidemia, peripheral neuropathy who presents to the emergency department for evaluation of syncope. 1.Orthostatic syncope -improvement began last evening. This a.m. back to baseline -will follow throughout the afternoon; if no further issues consider discharge to home 2. Hypertension -acceptable control off therapies -can follow-up with PCP to resume therapies as indicated 3. Coronary artery disease -dual antiplatelet therapy/high-intensity statin DVT prophylaxis: Lovenox 40 mg daily Do not resuscitate Requires ongoing hospitalization to document normal blood pressures/resolution of orthostasis Quality Stroke Does the patient have a stroke diagnosis?: No VTE Prior VTE?: No VTE Risk Level:: Medical - moderate - high VTE Device Contraindication: N/A - Device Ordered VTE Drug Contraindication: N/A - Med Ordered
--- NOTE | 2022-04-06 12:57 | MHC.CM.PN ---
CM MET WITH PT TO DISCUSS DC PLANNING SHE REPORTS CONCERNS RE GOING HOME SHE CONTINUES TO EXPERIENCE DIZZY SPELLS AND IS WORRIED SHE WILL FALL AGAIN SHE ALSO REPORTS SHE LIVES ALONE AND HAS ABSOLUTELY NO ONE TO ASSIST HER SHE REPORTS SHE IS INTERESTED IN STR SHE IS AWARE SHE WILL NEED A NEW PT EVAL TOMORROW SEVERAL REFERRALS HAVE BEEN MADE OF NOTE: SHE IS ACTIVE WITH [facility] (NOT [facility]) FOR MEDICATION ADMINISTRATION
[2022-04-06 13:53] LABS: Source-Tick borne disease BLOOD
--- NOTE | 2022-04-06 14:53 | PM.EVENT ---
Event Note Date of Service: 04/06/22 Event Note: Physical therapist noted orthostatic vitals: Sitting 101/60 Standing 75/51 Will start midodrine 2.5 t.i.d. and consult Renal
[2022-04-06] MEDS: Midodrine HCl 2.5 MG TABLET PO ×2 (16:37→19:32)
[2022-04-06] MEDS: Enoxaparin Sodium 40 MG/0.4 ML SYRINGE SUBCUT (19:49)
[2022-04-06] MEDS: Melatonin 3 MG TABLET 6 MG PO (23:26)
[2022-04-07] VITALS (10 sets, daily range): BP systolic 81–172; BP diastolic 58–97; PULSE 62–103; RESP 14–18; TEMP 35.7–36.7; O2SAT 93–99
[2022-04-07 05:45] LABS: MANUAL DIFF FLAG NO
[2022-04-07 05:52] LABS: Basophils Absolute Auto 0.1 X10*3/uL (0.0-0.2); Basophils Percent Auto 0.5 % (0-2); Eosinophils Absolute Auto 0.2 X10*3/uL (0.0-0.4); Eosinophils Percent Auto 2.1 % (0-4); Hematocrit 36.4 % (37.0-47.0); Hemoglobin 12.1 g/dl (12.0-16.0); Imm Gran Abs Auto 0.02 X10*3/uL (0.00-0.03); Imm Gran Pct Auto 0.2 % (0.0-0.4); Lymphocytes Absolute Auto 3.9 X10*3/uL (1.2-4.9); Lymphocytes Percent Auto 39.8 % (20-40); Mean Corpuscular HGB Conc 33.2 g/dl (31.0-35.0); Mean Corpuscular Hemoglobin 30.5 pg (27.0-33.0); Mean Corpuscular Volume 91.7 fL (80.0-98.0); Mean Platelet Volume 11.7 fL (9.4-12.3); Monocytes Absolute Auto 0.8 X10*3/uL (0.1-1.2); Monocytes Percent Auto 8.4 % (2-11); Neutrophils Absolute Auto 4.8 x10*3/uL (2.0-8.3); Platelet Count 239 X10*3/uL (160-400); Red Blood Count 3.97 X10*6/uL (4.20-5.50); Red Cell Distribution Width 13.2 % (11.0-16.0); White Blood Count 9.7 X10*3/uL (4.8-10.8)
[2022-04-07 06:13] LABS: Alanine Aminotransferase 7 U/L (0-31); Albumin Level 3.8 g/dL (3.5-5.0); Alkaline Phosphatase 102 U/L (39-117); Anion Gap 15 (12-20); Aspartate Amino Transferase 17 U/L (5-31); Blood Urea Nitrogen 8 mg/dL (9-16); Calcium 9.3 mg/dL (8.4-10.2); Carbon Dioxide 24 mmol/L (22-29); Chloride 104 mmol/L (96-108); Creatinine Clr Calc Pharmacy 94.5; Estimated Glomerular Filt Rate > 60; Glucose Fasting 99 mg/dL (60-99); Potassium 3.9 mmol/L (3.3-5.1); Sodium 139 mmol/L (135-145); Total Protein 6.7 g/dL (6.5-8.0)
[2022-04-07] MEDS: Omeprazole 20 MG CAPSULE.DR PO (06:31)
[2022-04-07] MEDS: Midodrine HCl 2.5 MG TABLET PO ×3 (08:02→21:17)
[2022-04-07] MEDS: Aspirin 81 MG TAB.CHEW PO (08:02)
[2022-04-07] MEDS: DULoxetine HCl 60 MG CAPSULE.DR PO (08:02)
[2022-04-07] MEDS: Clopidogrel Bisulfate 75 MG TABLET PO (08:03)
[2022-04-07] MEDS: Atorvastatin Calcium 80 MG TABLET PO (08:03)
[2022-04-07] MEDS: 0.9 % Sodium Chloride Flush 3 ML SYRINGE IVFLUSH ×2 (08:03→16:26)
[2022-04-07] MEDS: Gabapentin 400 MG CAPSULE 800 MG PO ×4 (08:03→21:17)
[2022-04-07] MEDS: Multivitamin TABLET 1 TAB PO (08:03)
--- NOTE | 2022-04-07 09:16 | P.PNIM_ITS ---
Subjective Subjective Date of Service: 04/07/22 Interval History: Seen in f/u for syncope d/t orthostatic hypotenison Interval history: persitent and felt dizzy going to the bathroom Review of Systems Dizzy when going to bathroom no chest pain no sob Physical Exam Vital Signs: Vital Signs: Last Vital Signs Temp 96.6 F L 04/07/22 06:58 Pulse 103 H 04/07/22 09:03 Resp 18 04/07/22 06:58 BP 81/58 L 04/07/22 09:03 Pulse Ox 98 04/07/22 06:58 O2 Del Method 04/07/22 06:58 O2 Flow Rate 98 04/04/22 22:38 BMI result Body Mass Index 29.3 Const: Other: General: AO X 3, no acute distress Resp: CTA bilateral CVS: S1,S2,RRR GI: +BS, NT, no distention Skin: No rash Neuro: motor grossly intact Psych: appropriate affect Objective Data Active Medications Acetaminophen (Acetaminophen 325 Mg Tablet) 650 mg PO Q6H PRN PRN Reason: Pain, Mild (Pain Scale 1-3) Aspirin (Aspirin 81 Mg Tab.Chew) 81 mg PO DAILY [facility] Last Admin: 04/07/22 08:02 Dose: 81 mg Documented By: PANCHITO Aspirin (Aspirin Enteric Coated 81 Mg Tablet.) 81 mg PO DAILY [facility] Last Admin: 04/07/22 06:57 Dose: Not Given Documented By: PANCHITO Non-Admin Reason: Duplicate Order Atorvastatin Calcium (Atorvastatin Calcium 80 Mg Tablet) 80 mg PO DAILY [facility] Last Admin: 04/07/22 08:03 Dose: 80 mg Documented By: PANCHITO Clopidogrel Bisulfate (Clopidogrel Bisulfate 75 Mg Tablet) 75 mg PO DAILY [facility] Last Admin: 04/07/22 08:03 Dose: 75 mg Documented By: PANCHITO Duloxetine HCl (Duloxetine Hcl 60 Mg Capsule.) 60 mg PO DAILY [facility] Last Admin: 04/07/22 08:02 Dose: 60 mg Documented By: PANCHITO Enoxaparin Sodium (Enoxaparin Sodium 40 Mg/0.4 Ml Syringe) 40 mg SUBCUT Q24H [facility] Last Admin: 04/06/22 19:49 Dose: 40 mg Documented By: FELIZ Gabapentin (Gabapentin 400 Mg Capsule) 800 mg PO QID [facility] Last Admin: 04/07/22 08:03 Dose: 800 mg Documented By: PANCHITO Melatonin (Melatonin 3 Mg Tablet) 6 mg PO BEDTIME PRN PRN Reason: Insomnia Last Admin: 04/06/22 23:26 Dose: 6 mg Documented By: FELIZ Midodrine (Midodrine Hcl 2.5 Mg Tablet) 2.5 mg PO TID [facility] Last Admin: 04/07/22 08:02 Dose: 2.5 mg Documented By: PANCHITO Multivitamins/Vitamin C (Multivitamin Tablet) 1 tab PO DAILY [facility] Last Admin: 04/07/22 08:03 Dose: 1 tab Documented By: PANCHITO Omeprazole (Omeprazole 20 Mg Capsule.Dr) 20 mg PO DAILY@0630 [facility] Last Admin: 04/07/22 06:31 Dose: 20 mg Documented By: FELIZ Ondansetron HCl (Ondansetron Hcl 4 Mg/2 Ml Vial) 4 mg IVPUSH Q8H PRN PRN Reason: Nausea and Vomiting Pharmacy Consult (Consult Rx Perform Med Rec) 1 each MISCELLANE ONCE PRN PRN Reason: Consult order Sodium Chloride (0.9 % Sodium Chloride Flush 3 Ml Syringe) 3 ml IVFLUSH QSHIFT [facility] Last Admin: 04/07/22 08:03 Dose: 3 ml Documented By: PANCHITO Labs CBC & Chem 7: 04/07/22 05:07 04/07/22 05:07 Labs: Laboratory Results - last 24 hr 04/04/22 04/07/22 04/07/22 15:01 05:07 05:07 MCV 91.7 MCH 30.5 MCHC 33.2 RDW 13.2 Plt Count 239 MPV 11.7 Immature Gran % (Auto) 0.2 Neut % (Auto) 49.0 Lymph % (Auto) 39.8 [place] % (Auto) 8.4 Eos % (Auto) 2.1 Baso % (Auto) 0.5 Lymph # (Auto) 3.9 [place] # (Auto) 0.8 Eos # (Auto) 0.2 Baso # (Auto) 0.1 Abs Immat Gran (auto) 0.02 Absolute Neuts (auto) 4.8 Absolute Nucleated RBC 0.000 Nucleated RBC % (auto) 0.0 Anion Gap 15 Estim Creat Clear Calc 94.5 Estimated GFR > 60 Fasting Glucose 99 Calcium 9.3 Total Bilirubin 1.0 AST 17 ALT 7 Alkaline Phosphatase 102 Total Protein 6.7 Albumin 3.8 Tick-borne Disease PCR BLOOD Assessment and Plan (1) Orthostatic hypotension: Status: Acute (2) HTN (hypertension): Status: Acute (3) CAD (coronary artery disease): Status: Acute Plan This is a 56-year-old female with a pertinent history of coronary artery disease status post stent, major depressive disorder, essential hypertension, mixed hyperlipidemia, peripheral neuropathy who presents to the emergency department for evaluation of syncope. 1.Orthostatic Hypotension--syncope -Persistent at this time -Normal Saline -Increase Midorine -AI work up -Nephrology evaluation pending 2. Hypertension--Hold meds at this time 3. Coronary artery disease -dual antiplatelet therapy/high-intensity statin DVT prophylaxis: Lovenox 40 mg daily Do not resuscitate Requires ongoing hospitalization: symptomatic orthostatic hypOtension with onging work up and med adjustment and expert consultation pending Quality Stroke Does the patient have a stroke diagnosis?: No VTE Prior VTE?: No VTE Risk Level:: Medical - moderate - high VTE Device Contraindication: N/A - Device Ordered VTE Drug Contraindication: N/A - Med Ordered
[2022-04-07] MEDS: Acetaminophen 325 MG TABLET 650 MG PO (11:41)
[2022-04-07] MEDS: Ibuprofen 400 MG TABLET PO (14:46)
[2022-04-07] MEDS: Enoxaparin Sodium 40 MG/0.4 ML SYRINGE SUBCUT (21:17)
[2022-04-08] VITALS (7 sets, daily range): BP systolic 96–154; BP diastolic 55–86; PULSE 64–70; RESP 16–20; TEMP 36.1–37; O2SAT 97–99
[2022-04-08] MEDS: 0.9 % Sodium Chloride Flush 3 ML SYRINGE IVFLUSH ×4 (00:12→20:07)
[2022-04-08] MEDS: Omeprazole 20 MG CAPSULE.DR PO (05:41)
[2022-04-08 06:07] LABS: MANUAL DIFF FLAG NO
[2022-04-08 06:15] LABS: Basophils Absolute Auto 0.1 X10*3/uL (0.0-0.2); Basophils Percent Auto 0.7 % (0-2); Eosinophils Absolute Auto 0.3 X10*3/uL (0.0-0.4); Eosinophils Percent Auto 3.5 % (0-4); Hematocrit 35.7 % (37.0-47.0); Hemoglobin 11.7 g/dl (12.0-16.0); Imm Gran Abs Auto 0.02 X10*3/uL (0.00-0.03); Imm Gran Pct Auto 0.3 % (0.0-0.4); Lymphocytes Absolute Auto 3.4 X10*3/uL (1.2-4.9); Lymphocytes Percent Auto 47.8 % (20-40); Mean Corpuscular HGB Conc 32.8 g/dl (31.0-35.0); Mean Corpuscular Hemoglobin 30.4 pg (27.0-33.0); Mean Corpuscular Volume 92.7 fL (80.0-98.0); Mean Platelet Volume 11.6 fL (9.4-12.3); Monocytes Absolute Auto 0.4 X10*3/uL (0.1-1.2); Monocytes Percent Auto 5.9 % (2-11); Neutrophils Percent Auto 41.8 % (45-73); Platelet Count 215 X10*3/uL (160-400); Red Blood Count 3.85 X10*6/uL (4.20-5.50); Red Cell Distribution Width 13.4 % (11.0-16.0); White Blood Count 7.1 X10*3/uL (4.8-10.8)
[2022-04-08 06:37] LABS: Alanine Aminotransferase 9 U/L (0-31); Albumin Level 3.7 g/dL (3.5-5.0); Alkaline Phosphatase 86 U/L (39-117); Anion Gap 17 (12-20); Aspartate Amino Transferase 18 U/L (5-31); Blood Urea Nitrogen 10 mg/dL (9-16); Calcium 9.1 mg/dL (8.4-10.2); Carbon Dioxide 21 mmol/L (22-29); Chloride 103 mmol/L (96-108); Creatinine Clr Calc Pharmacy 101.2; Estimated Glomerular Filt Rate > 60; Glucose Fasting 148 mg/dL (60-99); Sodium 137 mmol/L (135-145); Total Protein 6.2 g/dL (6.5-8.0)
[2022-04-08] MEDS: Midodrine HCl 2.5 MG TABLET PO (08:12)
[2022-04-08] MEDS: Clopidogrel Bisulfate 75 MG TABLET PO (08:12)
[2022-04-08] MEDS: Gabapentin 400 MG CAPSULE 800 MG PO ×4 (08:12→20:02)
[2022-04-08] MEDS: Aspirin 81 MG TAB.CHEW PO (08:12)
[2022-04-08] MEDS: Atorvastatin Calcium 80 MG TABLET PO (08:12)
[2022-04-08] MEDS: Multivitamin TABLET 1 TAB PO (08:12)
[2022-04-08] MEDS: DULoxetine HCl 60 MG CAPSULE.DR PO (08:14)
--- NOTE | 2022-04-08 09:10 | P.PNIM_ITS ---
Subjective Subjective Date of Service: 04/08/22 Interval History: Seen in f/u for syncope d/t orthostatic hypotension Interval history: persistent dizziness upon standing Review of Systems Dizzy when going to bathroom no chest pain no sob Physical Exam Vital Signs: Vital Signs: Last Vital Signs Temp 97.4 F 04/08/22 07:34 Pulse 68 04/08/22 07:34 Resp 18 04/08/22 07:34 BP 154/86 H 04/08/22 07:34 Pulse Ox 99 04/08/22 07:34 O2 Del Method 04/08/22 07:34 O2 Flow Rate 98 04/04/22 22:38 BMI result Body Mass Index 29.3 Const: Other: General: AO X 3, no acute distress Resp: CTA bilateral CVS: S1,S2,RRR GI: +BS, NT, no distention Skin: No rash Neuro: motor grossly intact Psych: appropriate affect Objective Data Active Medications Acetaminophen (Acetaminophen 325 Mg Tablet) 650 mg PO Q6H PRN PRN Reason: Pain, Mild (Pain Scale 1-3) Last Admin: 04/07/22 11:41 Dose: 650 mg Documented By: PANCHITO Aspirin (Aspirin 81 Mg Tab.Chew) 81 mg PO DAILY [facility] Last Admin: 04/08/22 08:12 Dose: 81 mg Documented By: ELENO Aspirin (Aspirin Enteric Coated 81 Mg Tablet.) 81 mg PO DAILY [facility] Last Admin: 04/08/22 08:14 Dose: Not Given Documented By: ELENO Non-Admin Reason: Duplicate Order Atorvastatin Calcium (Atorvastatin Calcium 80 Mg Tablet) 80 mg PO DAILY [facility] Last Admin: 04/08/22 08:12 Dose: 80 mg Documented By: ELENO Clopidogrel Bisulfate (Clopidogrel Bisulfate 75 Mg Tablet) 75 mg PO DAILY [facility] Last Admin: 04/08/22 08:12 Dose: 75 mg Documented By: ELENO Duloxetine HCl (Duloxetine Hcl 60 Mg Capsule.) 60 mg PO DAILY [facility] Last Admin: 04/08/22 08:14 Dose: 60 mg Documented By: ELENO Enoxaparin Sodium (Enoxaparin Sodium 40 Mg/0.4 Ml Syringe) 40 mg SUBCUT Q24H [facility] Last Admin: 04/07/22 21:17 Dose: 40 mg Documented By: FRED Gabapentin (Gabapentin 400 Mg Capsule) 800 mg PO QID [facility] Last Admin: 04/08/22 08:12 Dose: 800 mg Documented By: ELENO Ibuprofen (Ibuprofen 400 Mg Tablet) 400 mg PO Q6H PRN PRN Reason: Headache Last Admin: 04/07/22 14:46 Dose: 400 mg Documented By: PANCHITO Melatonin (Melatonin 3 Mg Tablet) 6 mg PO BEDTIME PRN PRN Reason: Insomnia Last Admin: 04/06/22 23:26 Dose: 6 mg Documented By: FELIZ Midodrine (Midodrine Hcl 5 Mg Tablet) 5 mg PO BID [facility] Multivitamins/Vitamin C (Multivitamin Tablet) 1 tab PO DAILY [facility] Last Admin: 04/08/22 08:12 Dose: 1 tab Documented By: ELENO Omeprazole (Omeprazole 20 Mg Capsule.Dr) 20 mg PO DAILY@0630 [facility] Last Admin: 04/08/22 05:41 Dose: 20 mg Documented By: DANIELA Ondansetron HCl (Ondansetron Hcl 4 Mg/2 Ml Vial) 4 mg IVPUSH Q8H PRN PRN Reason: Nausea and Vomiting Pharmacy Consult (Consult Rx Perform Med Rec) 1 each MISCELLANE ONCE PRN PRN Reason: Consult order Sodium Chloride (0.9 % Sodium Chloride Flush 3 Ml Syringe) 3 ml IVFLUSH QSHIFT [facility] Last Admin: 04/08/22 08:12 Dose: 3 ml Documented By: ELENO Labs CBC & Chem 7: 04/08/22 05:38 04/08/22 05:38 Labs: Laboratory Results - last 24 hr 04/08/22 04/08/22 05:38 05:38 MCV 92.7 MCH 30.4 MCHC 32.8 RDW 13.4 Plt Count 215 MPV 11.6 Immature Gran % (Auto) 0.3 Neut % (Auto) 41.8 L Lymph % (Auto) 47.8 H [place] % (Auto) 5.9 Eos % (Auto) 3.5 Baso % (Auto) 0.7 Lymph # (Auto) 3.4 [place] # (Auto) 0.4 Eos # (Auto) 0.3 Baso # (Auto) 0.1 Abs Immat Gran (auto) 0.02 Absolute Neuts (auto) 3.0 Absolute Nucleated RBC 0.000 Nucleated RBC % (auto) 0.0 Anion Gap 17 Estim Creat Clear Calc 101.2 Estimated GFR > 60 Fasting Glucose 148 H Calcium 9.1 Total Bilirubin 1.0 AST 18 ALT 9 Alkaline Phosphatase 86 Total Protein 6.2 L Albumin 3.7 Assessment and Plan (1) Orthostatic hypotension: Status: Acute (2) HTN (hypertension): Status: Acute (3) CAD (coronary artery disease): Status: Acute Plan 56-year-old female with a pertinent history of coronary artery disease status post stent, major depressive disorder, essential hypertension, mixed hyperlipidemia, peripheral neuropathy who presents to the emergency department for evaluation of syncope. 1.Orthostatic Hypotension and postural HTN -Persistent at this time -Increase Midorine to 5 bid -Nephrology evaluation pending 2. Hypertension--Hold meds at this time 3. Coronary artery disease -dual antiplatelet therapy/high-intensity statin DVT prophylaxis: Lovenox 40 mg daily Do not resuscitate Requires ongoing hospitalization: symptomatic orthostatic hypOtension with onging work up and med adjustment and expert consultation pending Quality Stroke Does the patient have a stroke diagnosis?: No VTE Prior VTE?: No VTE Risk Level:: Medical - moderate - high VTE Device Contraindication: N/A - Device Ordered VTE Drug Contraindication: N/A - Med Ordered
[2022-04-08] MEDS: Ibuprofen 400 MG TABLET PO (14:42)
[2022-04-08] MEDS: Enoxaparin Sodium 40 MG/0.4 ML SYRINGE SUBCUT (20:02)
[2022-04-08] MEDS: Midodrine HCl 5 MG TABLET PO (20:02)
[2022-04-09] VITALS (8 sets, daily range): BP systolic 79–145; BP diastolic 52–83; PULSE 62–83; RESP 18; TEMP 36.2–36.5; O2SAT 97–99
[2022-04-09] MEDS: Omeprazole 20 MG CAPSULE.DR PO (05:54)
[2022-04-09] MEDS: Midodrine HCl 5 MG TABLET PO ×2 (07:58→20:04)
[2022-04-09] MEDS: DULoxetine HCl 60 MG CAPSULE.DR PO (07:58)
[2022-04-09] MEDS: Clopidogrel Bisulfate 75 MG TABLET PO (07:58)
[2022-04-09] MEDS: Multivitamin TABLET 1 TAB PO (07:58)
[2022-04-09] MEDS: Gabapentin 400 MG CAPSULE 800 MG PO ×4 (07:58→20:04)
[2022-04-09] MEDS: Atorvastatin Calcium 80 MG TABLET PO (07:58)
[2022-04-09] MEDS: Aspirin 81 MG TAB.CHEW PO (07:58)
--- NOTE | 2022-04-09 08:18 | HO.PM.IMPN ---
Subjective Subjective Date of Service: 04/09/22 Interval History: Seen in f/u for syncope d/t orthostatic hypotension Interval history: persistent dizziness upon standing and orthostatic is still positive dropping from 138 to 79 systolic Review of Systems Dizzy when going to bathroom no chest pain no sob Physical Exam Vital Signs: Vital Signs: Last Vital Signs Temp 97.5 F 04/09/22 07:55 Pulse 83 04/09/22 08:08 Resp 18 04/09/22 07:55 BP 79/52 L 04/09/22 08:08 Pulse Ox 99 04/09/22 07:55 O2 Del Method 04/09/22 07:55 O2 Flow Rate 98 04/04/22 22:38 BMI result Body Mass Index 29.3 Const: Other: General: AO X 3, no acute distress Resp: CTA bilateral CVS: S1,S2,RRR GI: +BS, NT, no distention Skin: No rash Neuro: motor grossly intact Psych: appropriate affect Objective Data Active Medications Acetaminophen (Acetaminophen 325 Mg Tablet) 650 mg PO Q6H PRN PRN Reason: Pain, Mild (Pain Scale 1-3) Last Admin: 04/07/22 11:41 Dose: 650 mg Documented By: PANCHITO Aspirin (Aspirin 81 Mg Tab.Chew) 81 mg PO DAILY [facility] Last Admin: 04/09/22 07:58 Dose: 81 mg Documented By: ELENO Aspirin (Aspirin Enteric Coated 81 Mg Tablet.) 81 mg PO DAILY [facility] Last Admin: 04/08/22 08:14 Dose: Not Given Documented By: ELENO Non-Admin Reason: Duplicate Order Atorvastatin Calcium (Atorvastatin Calcium 80 Mg Tablet) 80 mg PO DAILY [facility] Last Admin: 04/09/22 07:58 Dose: 80 mg Documented By: ELENO Clopidogrel Bisulfate (Clopidogrel Bisulfate 75 Mg Tablet) 75 mg PO DAILY [facility] Last Admin: 04/09/22 07:58 Dose: 75 mg Documented By: ELENO Duloxetine HCl (Duloxetine Hcl 60 Mg Capsule.) 60 mg PO DAILY [facility] Last Admin: 04/09/22 07:58 Dose: 60 mg Documented By: ELENO Enoxaparin Sodium (Enoxaparin Sodium 40 Mg/0.4 Ml Syringe) 40 mg SUBCUT Q24H [facility] Last Admin: 04/08/22 20:02 Dose: 40 mg Documented By: PAMELA Gabapentin (Gabapentin 400 Mg Capsule) 800 mg PO QID [facility] Last Admin: 04/09/22 07:58 Dose: 800 mg Documented By: ELENO Ibuprofen (Ibuprofen 400 Mg Tablet) 400 mg PO Q6H PRN PRN Reason: Headache Last Admin: 04/08/22 14:42 Dose: 400 mg Documented By: ELENO Melatonin (Melatonin 3 Mg Tablet) 6 mg PO BEDTIME PRN PRN Reason: Insomnia Last Admin: 04/06/22 23:26 Dose: 6 mg Documented By: FELIZ Midodrine (Midodrine Hcl 5 Mg Tablet) 5 mg PO BID [facility] Last Admin: 04/09/22 07:58 Dose: 5 mg Documented By: ELENO Multivitamins/Vitamin C (Multivitamin Tablet) 1 tab PO DAILY [facility] Last Admin: 04/09/22 07:58 Dose: 1 tab Documented By: ELENO Omeprazole (Omeprazole 20 Mg Capsule.) 20 mg PO DAILY@0630 [facility] Last Admin: 04/09/22 05:54 Dose: 20 mg Documented By: PAMELA Ondansetron HCl (Ondansetron Hcl 4 Mg/2 Ml Vial) 4 mg IVPUSH Q8H PRN PRN Reason: Nausea and Vomiting Pharmacy Consult (Consult Rx Perform Med Rec) 1 each MISCELLANE ONCE PRN PRN Reason: Consult order Sodium Chloride (0.9 % Sodium Chloride Flush 3 Ml Syringe) 3 ml IVFLUSH QSHIFT [facility] Last Admin: 04/08/22 20:07 Dose: 3 ml Documented By: PAMELA Labs CBC & Chem 7: 04/08/22 05:38 04/08/22 05:38 Assessment and Plan (1) Orthostatic hypotension: Status: Acute (2) HTN (hypertension): Status: Acute (3) CAD (coronary artery disease): Status: Acute Plan 56-year-old female with a pertinent history of coronary artery disease status post stent, major depressive disorder, essential hypertension, mixed hyperlipidemia, peripheral neuropathy who presents to the emergency department for evaluation of syncope. 1.Orthostatic Hypotension and postural HTN -Persistent at this time -continue 5 bid -Nephrology evaluation pending -IV normal saline 2. Hypertension--Hold meds at this time 3. Coronary artery disease -dual antiplatelet therapy/high-intensity statin DVT prophylaxis: Lovenox 40 mg daily Do not resuscitate Requires ongoing hospitalization: symptomatic orthostatic hypOtension with onging work up and med adjustment and expert consultation pending Quality Stroke Does the patient have a stroke diagnosis?: No VTE Prior VTE?: No VTE Risk Level:: Medical - moderate - high VTE Device Contraindication: N/A - Device Ordered VTE Drug Contraindication: N/A - Med Ordered
[2022-04-09] MEDS: 0.9 % Sodium Chloride Flush 3 ML SYRINGE IVFLUSH (09:26)
--- NOTE | 2022-04-09 12:43 | PM.CNNEP ---
History of Present Illness Reason for Consult Consult date: 04/09/22 Reason for consult: orthostatic hypotention Chief Complaint Chief complaint: Syncope History of Present Illness Narrative: This is a 56-year-old female with a pertinent history of coronary artery disease status post stent, major depressive disorder, essential hypertension, mixed hyperlipidemia, peripheral neuropathy who presents to the emergency department for evaluation of syncope on 04-05 Review of Systems Review of Systems Dizzy when going to bathroom no chest pain no sob Constitutional: Reports no additional constitutional complaints, Denies chills, Denies fever(s) and Denies night sweats Eyes: Reports no additional eye complaints, Denies blurry vision, Denies change in vision, Denies diplopia, Denies eye discharge, Denies loss of vision and Denies eye pain Denies dizziness Cardiovascular: Reports no additional cardiovascular complaints, Denies chest pain, Denies lightheadedness, Denies Loss of Consciousness and Denies dyspnea Respiratory: Reports no additional respiratory complaints and Denies dyspnea Gastrointestinal: Reports no additional gastrointestinal complaints, Denies abdominal pain, Denies melena, Denies hematochezia, Denies change in bowel habits and Denies change in stool character Musculoskeletal: Reports no additional musculoskeletal complaints, Denies numbness and Denies tingling Denies dizziness, Denies loss of vision, Denies numbness and Denies tingling Psychiatric: Reports no additional psychiatric complaints Endocrine: Reports no additional endocrine complaints Hematologic/Lymphatic: Reports no additional hematologic/lymphatic complaints Allergic/Immunologic: Reports no additional allergic/immunologic complaints [facility] Past Medical History Medical History (Updated 04/06/22 @ 12:05 by Aj Abrams DO) CAD (coronary artery disease) Cardiomyopathy Depression Dyslipidemia GERD (gastroesophageal reflux disease) History of mammogram HTN (hypertension) Hyperglycemia Neuropathy Normal Pap smear Peripheral neuropathy Urinary incontinence Family History Family History Father No problems noted. Mother No problems noted. Brother No problems noted. Sister No problems noted. Sister No problems noted. Son No problems noted. Surgical History Surgical History Breast abscess CTS (carpal tunnel syndrome) H/O cardiac catheterization (~01/2020) H/O colonoscopy History of ankle surgery Social History Social History Household Members: None Housing: Apartment Do you presently have visiting nurse or other home services: Yes (do her medication) Patient Tobacco Use Status: Former Tobacco user Tobacco use type: Cigarette Cigarettes Per Day: 5 Years Smoked: 20 Smoked in Last 30 Days: Yes e-Cigarette/Vaping Use: Former Use Patient Interested in Nicotine Replacement: No (not right now) Patient Given Instructions on How to Stop Smoking: No Second Hand Smoke Exposure: No Use of substances other than those prescribed or required for medical reasons: Yes Substance Use Type: Marijuana Last Used Substance Other:: two months Currently Displaying Signs/Symptoms of Drug Intoxication Withdrawal: No Any prior treatment program specific to substance use: No Have you been hit, kicked, punched, or otherwise hurt by someone within the past year? If so, by whom?: No Do you feel safe in your current relationship?: No Current Relationship Is there a partner from a previous relationship who is making you feel unsafe now?: No Are you made to feel afraid or neglected: No Spiritual Healthcare Practices: spiritilist Advance Directives: No Do you have thoughts of harming others: None Do you have a plan to hurt others: No Plan Recently lost weight without trying: Yes How much weight loss: 24-33 pounds Eating poorly because of decreased appetite: No Nutrition screen score: 5 Nutrition Risks: No Nutritional Risk Patient : No : No Poor oral hygiene: No Current occupational status: unemployed Cognitive needs: No Hearing needs: No Vision needs: Yes Meds Allergies Allergy/AdvReac Type Severity Reaction Status Date / Time aspirin [ASPIRIN] Allergy Unknown SENSITIVITY Verified 03/01/22 09:49 lisinopril Allergy Unknown falls, Verified 03/01/22 09:49 muscle weakness Active Medications: Current Medications Acetaminophen (Acetaminophen 325 Mg Tablet) 650 mg PO Q6H PRN PRN Reason: Pain, Mild (Pain Scale 1-3) Last Admin: 04/07/22 11:41 Dose: 650 mg Aspirin (Aspirin 81 Mg Tab.Chew) 81 mg PO DAILY [facility] Last Admin: 04/09/22 07:58 Dose: 81 mg Aspirin (Aspirin Enteric Coated 81 Mg Tablet.Dr) 81 mg PO DAILY [facility] Last Admin: 04/09/22 08:20 Dose: Not Given Atorvastatin Calcium (Atorvastatin Calcium 80 Mg Tablet) 80 mg PO DAILY [facility] Last Admin: 04/09/22 07:58 Dose: 80 mg Clopidogrel Bisulfate (Clopidogrel Bisulfate 75 Mg Tablet) 75 mg PO DAILY [facility] Last Admin: 04/09/22 07:58 Dose: 75 mg Duloxetine HCl (Duloxetine Hcl 60 Mg Capsule.) 60 mg PO DAILY [facility] Last Admin: 04/09/22 07:58 Dose: 60 mg Enoxaparin Sodium (Enoxaparin Sodium 40 Mg/0.4 Ml Syringe) 40 mg SUBCUT Q24H [facility] Last Admin: 04/08/22 20:02 Dose: 40 mg Gabapentin (Gabapentin 400 Mg Capsule) 800 mg PO QID [facility] Last Admin: 04/09/22 12:37 Dose: 800 mg Ibuprofen (Ibuprofen 400 Mg Tablet) 400 mg PO Q6H PRN PRN Reason: Headache Last Admin: 04/08/22 14:42 Dose: 400 mg Melatonin (Melatonin 3 Mg Tablet) 6 mg PO BEDTIME PRN PRN Reason: Insomnia Last Admin: 04/06/22 23:26 Dose: 6 mg Midodrine (Midodrine Hcl 5 Mg Tablet) 5 mg PO BID [facility] Last Admin: 04/09/22 07:58 Dose: 5 mg Multivitamins/Vitamin C (Multivitamin Tablet) 1 tab PO DAILY [facility] Last Admin: 04/09/22 07:58 Dose: 1 tab Omeprazole (Omeprazole 20 Mg Capsule.) 20 mg PO DAILY@0630 [facility] Last Admin: 04/09/22 05:54 Dose: 20 mg Ondansetron HCl (Ondansetron Hcl 4 Mg/2 Ml Vial) 4 mg IVPUSH Q8H PRN PRN Reason: Nausea and Vomiting Pharmacy Consult (Consult Rx Perform Med Rec) 1 each MISCELLANE ONCE PRN PRN Reason: Consult order Sodium Chloride (0.9 % Sodium Chloride Flush 3 Ml Syringe) 3 ml IVFLUSH QSHIFT [facility] Last Admin: 04/09/22 09:26 Dose: 3 ml Home Medications Medication Instructions Recorded Confirmed Last Taken Type [id number] 1 tab PO DAILY 03/01/22 04/05/22 Unknown History fumarate 7.5 mg-folic acid 400 mcg tablet gabapentin 400 mg capsule 800 mg PO QID 04/05/22 04/05/22 Unknown History Physical Exam Vital Signs: Last Vital Signs Temp 97.5 F 04/09/22 07:55 Pulse 83 04/09/22 08:08 Resp 18 04/09/22 07:55 BP 79/52 L 04/09/22 08:08 Pulse Ox 99 04/09/22 07:55 O2 Del Method 04/09/22 07:55 O2 Flow Rate 98 04/04/22 22:38 BMI result Body Mass Index 29.3 Const Other: General: AO X 3, no acute distress Resp: CTA bilateral CVS: S1,S2,RRR GI: +BS, NT, no distention Skin: No rash Neuro: motor grossly intact Psych: appropriate affect General: cooperative, no acute distress, alert and awake Nutritional Appearance: well nourished Orientation/consciousness: patient oriented x3 Limitations: no limitations HEENT Head: Yes normal to inspection and Yes atraumatic Ears: hearing grossly normal bilaterally and external ears normal General nose exam: Normal external nose present, no nasal discharge noted and no epistaxis Face and sinus: Yes normal facial exam, No abrasion and No laceration Mouth: Normal oral and palatal mucosa present, no drooling and no muffled voice Eyes General: appearance normal, both eyes and all related structures Periorbital: periorbital findings normal Eyelids: Yes eyelids normal Conjunctivae: conjunctivae normal Pupils: Equal, round and reactive pupils present EOM: EOMs intact bilaterally Neck Neck: Yes normal visual inspection, Yes full ROM and Yes no lymphadenopathy Chest Chest palpation & inspection: normal inspection of the chest Resp Effort & Inspection: normal respiratory effort and able to speak in complete sentences Auscultation: clear to auscultation bilaterally Cardio Rate: regular rate Rhythm: regular rhythm GI Inspection: Yes normal to inspection Neuro General: patient oriented x3 and moves all extremities Cranial nerves: Yes Equal, round and reactive pupils present Cognition (Neuro): normal cognition Motor exam (neuro): 5/5 motor strength present throughout Sensory Exam: Normal double simultaneous stimulation for sensation Coordination: [id number] test normal Extrem General: Yes normal to inspection, Yes full ROM and Yes capillary refill normal Psych Appearance: grossly normal Mental Status: mental status grossly normal Affect: normal affect Attitude: cooperative Thought process: Normal thought process present Thought content: Normal thought content present Insight: Good insight present (Psych) Results Lab Results Result Diagrams: 04/08/22 05:38 04/08/22 05:38 Lab results: Chemistry 04/07/22 04/08/22 05:07 05:38 Sodium 139 137 Potassium 3.9 D 4.0 Carbon Dioxide 24 21 L BUN 8 L 10 Creatinine 0.76 0.71 Calcium 9.3 9.1 Hematology 04/07/22 04/08/22 05:07 05:38 WBC 9.7 7.1 Hgb 12.1 11.7 L Plt Count 239 215 Assessment and Plan (1) Orthostatic hypotension: Status: Acute multiple possible reasons for hypotension she has DM untreated with likely DM neuropathy cardiomyopathy may contribute to the hypotension I suggest we check TSH (cortisol was wnl) midodrine can be increased to 10 mg tid fit for thigh high compression stockings I would try off gabepentin may be cause of orthostasis (2) HTN (hypertension): Status: Acute (3) CAD (coronary artery disease): Status: Acute Plan 56-year-old female with a pertinent history of coronary artery disease status post stent, major depressive disorder, essential hypertension, mixed hyperlipidemia, peripheral neuropathy who presents to the emergency department for evaluation of syncope. 1.Orthostatic Hypotension and postural HTN -Persistent at this time -continue 5 bid -Nephrology evaluation pending -IV normal saline 2. Hypertension--Hold meds at this time 3. Coronary artery disease -dual antiplatelet therapy/high-intensity statin DVT prophylaxis: Lovenox 40 mg daily Do not resuscitate Requires ongoing hospitalization: symptomatic orthostatic hypOtension with onging work up and med adjustment and expert consultation pending Procedures Date of Service Date of Service: 04/09/22
[2022-04-09] MEDS: 0.9 % Sodium Chloride 1,000 ML 100 ML IVCONT ×2 (14:40→23:18)
[2022-04-09] MEDS: Enoxaparin Sodium 40 MG/0.4 ML SYRINGE SUBCUT (20:04)
[2022-04-10 04:00] VITALS: BP 132/80; PULSE 69; RESP 18; TEMP 36.6; O2SAT 99
[2022-04-10] MEDS: Omeprazole 20 MG CAPSULE.DR PO (05:40)
[2022-04-10 07:55] VITALS: BP 185/85; PULSE 74; RESP 18; TEMP 36.7; O2SAT 100
[2022-04-10] MEDS: 0.9 % Sodium Chloride 1,000 ML 100 ML IVCONT ×2 (09:14→20:29)
--- NOTE | 2022-04-10 09:20 | MHC.CM.PN ---
CLINICAL UPDATES SENT TO ALL [facility] YESTERDAY [facility] REVIEWING TODAY FOR POTENTIAL BED OFFER AWAITING RESPONSE
[2022-04-10] MEDS: Aspirin 81 MG TAB.CHEW PO (09:52)
[2022-04-10] MEDS: Gabapentin 400 MG CAPSULE 800 MG PO (09:52)
[2022-04-10] MEDS: Atorvastatin Calcium 80 MG TABLET PO (09:52)
[2022-04-10] MEDS: DULoxetine HCl 60 MG CAPSULE.DR PO (09:52)
[2022-04-10] MEDS: Clopidogrel Bisulfate 75 MG TABLET PO (09:52)
[2022-04-10] MEDS: Multivitamin TABLET 1 TAB PO (09:53)
[2022-04-10 10:06] VITALS: BP 185/85; PULSE 74; O2SAT 100
--- NOTE | 2022-04-10 10:10 | P.PNNP_ITS ---
Subjective Subjective Date of Service: 04/10/22 Interval history: Seen and examined, cont to feel LHwith standing this am--Ortho BPs not doen this am Physical Exam Vital Signs: Vital Signs: Last Vital Signs Temp 98.1 F 04/10/22 07:55 Pulse 74 04/10/22 07:55 Resp 18 04/10/22 07:55 BP 185/85 H 04/10/22 07:55 Pulse Ox 100 04/10/22 07:55 O2 Del Method 04/10/22 07:55 O2 Flow Rate 98 04/04/22 22:38 BMI result Body Mass Index 29.3 Const: Other: General: AO X 3, no acute distress Resp: CTA bilateral CVS: S1,S2,RRR GI: +BS, NT, no distention Skin: No rash Neuro: motor grossly intact Psych: appropriate affect General: cooperative, no acute distress, alert and awake Nutritional Appearance: well nourished Orientation/consciousness: patient oriented x3 Limitations: no limitations HEENT: Head: Yes normal to inspection and Yes atraumatic Ears: hearing grossly normal bilaterally and external ears normal General nose exam: Normal external nose present, no nasal discharge noted and no epistaxis Face and sinus: Yes normal facial exam, No abrasion and No laceration Mouth: Normal oral and palatal mucosa present, no drooling and no muffled voice Eyes: General: appearance normal, both eyes and all related structures Periorbital: periorbital findings normal Eyelids: Yes eyelids normal Conjunctivae: conjunctivae normal Pupils: Equal, round and reactive pupils present EOM: EOMs intact bilaterally Neck: Neck: Yes normal visual inspection, Yes full ROM and Yes no lymphadenopathy Chest: Chest palpation & inspection: normal inspection of the chest Resp: Effort & Inspection: normal respiratory effort and able to speak in complete sentences Auscultation: clear to auscultation bilaterally Cardio: Rate: regular rate Rhythm: regular rhythm GI: Inspection: Yes normal to inspection Neuro: General: patient oriented x3 and moves all extremities Cranial nerves: Yes Equal, round and reactive pupils present Cognition (Neuro): normal cognition Motor exam (neuro): 5/5 motor strength present throughout Sensory Exam: Normal double simultaneous stimulation for sensation Coordination: [id number] test normal Extrem: General: Yes normal to inspection, Yes full ROM and Yes capillary refill normal Psych: Appearance: grossly normal Mental Status: mental status grossly normal Affect: normal affect Attitude: cooperative Thought process: Normal thought process present Thought content: Normal thought content present Insight: Good insight present (Psych) Objective Data Labs CBC & Chem 7: 04/08/22 05:38 04/08/22 05:38 Procedures Date of Service Date of Service: 04/10/22 Assessment & Plan Assessment and plan (1) Orthostatic hypotension: Status: Acute (2) HTN (hypertension): Status: Acute (3) CAD (coronary artery disease): Status: Acute Plan 56-year-old female with a pertinent history of coronary artery disease status post stent, major depressive disorder, essential hypertension, mixed hype rlipidemia, peripheral neuropathy who presents to the emergency department for evaluation of syncope. Systolic HTN with severe symptomatic OH ( [facility]): very impressive drops in BP with upright position and supine severe Systolic HTN REC: decr Neurontin which has been assoc with OH; use leg stockings; midridine during daytime --can incr ot 120 bid ( in am and mid-day); PT eval to help with getting uop slowly; leg compressive stoking; sleep with HOB elevaed; glass of water in am before gettig out o f bed; will consider short acting BP at bedtime to help manage nocturnal supine seere HTN She may be a candidate for northera which we can assess as outpt; consider Neuro eval to make sure not missing any other cause of OH other than presumed d/t autonomic neurpoapthy foirm her DM Time Spent With Patient Time: Total time spent is greater than 50% in coordination of care (as documented) at patient's floor/unit and/or counseling patient: Progress Note: Quality Stroke Does the patient have a stroke diagnosis?: No
[2022-04-10] MEDS: Midodrine HCl 5 MG TABLET PO (10:16)
--- NOTE | 2022-04-10 10:26 | P.PNIM_ITS ---
Subjective Subjective Date of Service: 04/10/22 Interval History: Seen in f/u for syncope d/t orthostatic hypotension Interval history: persistent dizziness upon standing and orthostatic is still positive dropping singificantly sharp chest pain from fall Review of Systems Dizzy when up no sob Physical Exam Vital Signs: Vital Signs: Last Vital Signs Temp 98.1 F 04/10/22 07:55 Pulse 74 04/10/22 10:06 Resp 18 04/10/22 07:55 BP 185/85 H 04/10/22 10:06 Pulse Ox 100 04/10/22 10:06 O2 Del Method 04/10/22 07:55 O2 Flow Rate 98 04/04/22 22:38 BMI result Body Mass Index 29.3 Const: Other: General: AO X 3, no acute distress Resp: CTA bilateral CVS: S1,S2,RRR GI: +BS, NT, no distention Skin: No rash Neuro: motor grossly intact Psych: appropriate affect Objective Data Active Medications Acetaminophen (Acetaminophen 325 Mg Tablet) 650 mg PO Q6H PRN PRN Reason: Pain, Mild (Pain Scale 1-3) Last Admin: 04/07/22 11:41 Dose: 650 mg Documented By: PANCHITO Aspirin (Aspirin 81 Mg Tab.Chew) 81 mg PO DAILY [facility] Last Admin: 04/10/22 09:52 Dose: 81 mg Documented By: KIMO Aspirin (Aspirin Enteric Coated 81 Mg Tablet.) 81 mg PO DAILY [facility] Last Admin: 04/10/22 09:53 Dose: Not Given Documented By: KIMO Non-Admin Reason: Duplicate Order Atorvastatin Calcium (Atorvastatin Calcium 80 Mg Tablet) 80 mg PO DAILY [facility] Last Admin: 04/10/22 09:52 Dose: 80 mg Documented By: KIMO Clopidogrel Bisulfate (Clopidogrel Bisulfate 75 Mg Tablet) 75 mg PO DAILY [facility] Last Admin: 04/10/22 09:52 Dose: 75 mg Documented By: KIMO Duloxetine HCl (Duloxetine Hcl 60 Mg Capsule.) 60 mg PO DAILY [facility] Last Admin: 04/10/22 09:52 Dose: 60 mg Documented By: KIMO Enoxaparin Sodium (Enoxaparin Sodium 40 Mg/0.4 Ml Syringe) 40 mg SUBCUT Q24H [facility] Last Admin: 04/09/22 20:04 Dose: 40 mg Documented By: ELENO Gabapentin (Gabapentin 400 Mg Capsule) 800 mg PO QID [facility] Last Admin: 04/10/22 09:52 Dose: 800 mg Documented By: KIMO Sodium Chloride (Ns) 1,000 mls @ 100 mls/hr IVCONT .Q10H [facility] Last Admin: 04/10/22 09:14 Dose: 100 mls/hr Documented By: PANCHITO Ibuprofen (Ibuprofen 400 Mg Tablet) 400 mg PO Q6H PRN PRN Reason: Headache Last Admin: 04/08/22 14:42 Dose: 400 mg Documented By: ELENO Melatonin (Melatonin 3 Mg Tablet) 6 mg PO BEDTIME PRN PRN Reason: Insomnia Last Admin: 04/06/22 23:26 Dose: 6 mg Documented By: FELIZ Midodrine (Midodrine Hcl 5 Mg Tablet) 5 mg PO BID [facility] Last Admin: 04/10/22 10:16 Dose: 5 mg Documented By: KIMO Multivitamins/Vitamin C (Multivitamin Tablet) 1 tab PO DAILY [facility] Last Admin: 04/10/22 09:53 Dose: 1 tab Documented By: KIMO Omeprazole (Omeprazole 20 Mg Capsule.) 20 mg PO DAILY@0630 [facility] Last Admin: 04/10/22 05:40 Dose: 20 mg Documented By: ARNOLDO Ondansetron HCl (Ondansetron Hcl 4 Mg/2 Ml Vial) 4 mg IVPUSH Q8H PRN PRN Reason: Nausea and Vomiting Pharmacy Consult (Consult Rx Perform Med Rec) 1 each MISCELLANE ONCE PRN PRN Reason: Consult order Sodium Chloride (0.9 % Sodium Chloride Flush 3 Ml Syringe) 3 ml IVFLUSH QSHIFT [facility] Last Admin: 04/10/22 09:53 Dose: Not Given Documented By: KIMO Non-Admin Reason: IV Running Labs CBC & Chem 7: 04/08/22 05:38 04/08/22 05:38 Assessment and Plan (1) Orthostatic hypotension: Status: Acute (2) HTN (hypertension): Status: Acute (3) CAD (coronary artery disease): Status: Acute Plan 56-year-old female with a pertinent history of coronary artery disease status post stent, major depressive disorder, essential hypertension, mixed hyperlipidemia, peripheral neuropathy who presents to the emergency department for evaluation of syncope. 1.Orthostatic Hypotension and postural HTN -Persistent at this time -continue 5 bid -Seen by Dr. Sheridan witht the following recommendation REC: decr Neurontin which has been assoc with OH; use leg stockings; midridine during daytime --can incr ot 120 bid ( in am and mid-day); PT eval to help with getting uop slowly; leg compressive stoking; sleep with HOB elevaed; glass of water in am before gettig out o f bed; will consider short acting BP at bedtime to help manage nocturnal supine seere HTN She may be a candidate for northera which we can assess as outpt; consider Neuro eval to make sure not missing any other cause of OH other than presumed d/t autonomic neurpoapthy foirm her DM -IV normal saline 2. Hypertension--Hold meds at this time, may need meds at bedtime 3. Coronary artery disease -dual antiplatelet therapy/high-intensity statin DVT prophylaxis: Lovenox 40 mg daily Do not resuscitate Requires ongoing hospitalization: symptomatic orthostatic hypOtension with onging work up and med adjustment Quality Stroke Does the patient have a stroke diagnosis?: No VTE Prior VTE?: No VTE Risk Level:: Medical - moderate - high VTE Device Contraindication: N/A - Device Ordered VTE Drug Contraindication: N/A - Med Ordered
[2022-04-10 11:09] VITALS: BP 152/78; PULSE 71; RESP 17; TEMP 37.3; O2SAT 98
[2022-04-10] MEDS: Gabapentin 400 MG CAPSULE PO ×3 (14:11→20:31)
[2022-04-10 15:07] VITALS: BP 117/73; PULSE 64; RESP 19; TEMP 37.1; O2SAT 96
[2022-04-10] MEDS: Enoxaparin Sodium 40 MG/0.4 ML SYRINGE SUBCUT (19:42)
[2022-04-10] MEDS: 0.9 % Sodium Chloride Flush 3 ML SYRINGE IVFLUSH (19:43)
[2022-04-10 19:44] VITALS: BP 110/59; PULSE 68; RESP 17; TEMP 36.4; O2SAT 97
[2022-04-10] MEDS: Midodrine HCl 10 MG TABLET PO (20:30)
[2022-04-10] MEDS: Ibuprofen 400 MG TABLET PO (20:33)
[2022-04-11] VITALS (15 sets, daily range): BP systolic 76–198; BP diastolic 53–95; PULSE 54–72; RESP 14–18; TEMP 36.2–36.8; O2SAT 97–99
[2022-04-11] MEDS: Ketorolac Tromethamine 15 MG/ML VIAL IVPUSH (00:48)
[2022-04-11] MEDS: Melatonin 3 MG TABLET 6 MG PO (00:48)
[2022-04-11] MEDS: Omeprazole 20 MG CAPSULE.DR PO (05:31)
[2022-04-11] MEDS: 0.9 % Sodium Chloride 1,000 ML 100 ML IVCONT ×2 (05:32→13:35)
[2022-04-11] MEDS: Midodrine HCl 10 MG TABLET PO ×2 (08:34→19:58)
[2022-04-11] MEDS: DULoxetine HCl 60 MG CAPSULE.DR PO (08:34)
[2022-04-11] MEDS: Aspirin Enteric Coated 81 MG TABLET.DR PO (08:34)
[2022-04-11] MEDS: 0.9 % Sodium Chloride Flush 3 ML SYRINGE IVFLUSH (08:34)
[2022-04-11] MEDS: Clopidogrel Bisulfate 75 MG TABLET PO (08:34)
[2022-04-11] MEDS: Multivitamin TABLET 1 TAB PO (08:34)
[2022-04-11] MEDS: Gabapentin 400 MG CAPSULE PO ×4 (08:34→19:58)
[2022-04-11] MEDS: Atorvastatin Calcium 80 MG TABLET PO (08:34)
--- NOTE | 2022-04-11 09:48 | P.PNNP_ITS ---
Subjective Subjective Date of Service: 04/11/22 Interval history: Seen in f/u for syncope d/t orthostatic hypotension cont with symp OH No OH BP readings today yet Physical Exam Vital Signs: Vital Signs: Last Vital Signs Temp 97.2 F 04/11/22 07:42 Pulse 71 04/11/22 09:18 Resp 18 04/11/22 07:42 BP 198/95 H 04/11/22 09:18 Pulse Ox 97 04/11/22 09:18 O2 Del Method 04/11/22 07:42 O2 Flow Rate 98 04/04/22 22:38 BMI result Body Mass Index 29.3 Const: Other: General: AO X 3, no acute distress Resp: CTA bilateral CVS: S1,S2,RRR GI: +BS, NT, no distention Skin: No rash Neuro: motor grossly intact Psych: appropriate affect General: cooperative, no acute distress, alert and awake Nutritional Appearance: well nourished Orientation/consciousness: patient oriented x3 Limitations: no limitations HEENT: Head: Yes normal to inspection and Yes atraumatic Ears: hearing grossly normal bilaterally and external ears normal General nose exam: Normal external nose present, no nasal discharge noted and no epistaxis Face and sinus: Yes normal facial exam, No abrasion and No laceration Mouth: Normal oral and palatal mucosa present, no drooling and no muffled voice Eyes: General: appearance normal, both eyes and all related structures Periorbital: periorbital findings normal Eyelids: Yes eyelids normal Conjunctivae: conjunctivae normal Pupils: Equal, round and reactive pupils present EOM: EOMs intact bilaterally Neck: Neck: Yes normal visual inspection, Yes full ROM and Yes no lymphadenopathy Chest: Chest palpation & inspection: normal inspection of the chest Resp: Effort & Inspection: normal respiratory effort and able to speak in complete sentences Auscultation: clear to auscultation bilaterally Cardio: Rate: regular rate Rhythm: regular rhythm GI: Inspection: Yes normal to inspection Neuro: General: patient oriented x3 and moves all extremities Cranial nerves: Yes Equal, round and reactive pupils present Cognition (Neuro): normal cognition Motor exam (neuro): 5/5 motor strength present throughout Sensory Exam: Normal double simultaneous stimulation for sensation Coordination: [id number] test normal Extrem: General: Yes normal to inspection, Yes full ROM and Yes capillary refill normal Psych: Appearance: grossly normal Mental Status: mental status grossly normal Affect: normal affect Attitude: cooperative Thought process: Normal thought process present Thought content: Normal thought content present Insight: Good insight present (Psych) Objective Data Labs CBC & Chem 7: 04/08/22 05:38 04/08/22 05:38 Procedures Date of Service Date of Service: 04/11/22 Assessment & Plan Assessment and plan (1) Orthostatic hypotension: Status: Acute (2) HTN (hypertension): Status: Acute (3) CAD (coronary artery disease): Status: Acute Plan 56-year-old female with a pertinent history of coronary artery disease status post stent, major depressive disorder, essential hypertension, mixed hyperlipidemia, peripheral neuropathy who presents to the emergency department for evaluation of syncope. Systolic HTN with severe symptomatic OH ( [facility]): very impressive drops in BP w ith upright position and supine severe Systolic HTN REC: cont decr Neurontin which has been assoc with OH; use leg stockings; midridine during daytime --can incr ot 20 bid ( in am and mid-day); PT eval to help with getting up slowly; leg compressive stoking; sleep with HOB elevaed; glass of water in am before gettig out of bed; will consider short acting BP at bedtime to help manage nocturnal supine seere HTN She may be a candidate for northera which we can assess as outpt; consider Neuro eval to make sure not missing any other cause of OH other than presumed d/t autonomic neurpoapthy foirm her DM Time Spent With Patient Time: Total time spent is greater than 50% in coordination of care (as documented) at patient's floor/unit and/or counseling patient: Progress Note: Quality Stroke Does the patient have a stroke diagnosis?: No
--- NOTE | 2022-04-11 13:41 | HO.PM.IMPN ---
Subjective Subjective Date of Service: 04/11/22 Interval History: f/u for syncope d/t orthostatic hypotension Review of Systems persistent dizziness upon standing and orthostatic is still positive dropping singificantly sharp chest pain from fall Physical Exam Vital Signs: Vital Signs: Last Vital Signs Temp 97.8 F 04/11/22 11:39 Pulse 68 04/11/22 12:58 Resp 16 04/11/22 11:39 BP 76/53 L 04/11/22 12:58 Pulse Ox 97 04/11/22 11:39 O2 Del Method 04/11/22 11:39 O2 Flow Rate 98 04/04/22 22:38 BMI result Body Mass Index 29.3 General: AO X 3, no acute distress Resp:? CTA bilateral CVS: S1,S2,RRR GI: +BS, NT, no distention Skin: No rash Neuro:? motor grossly intact Psych: appropriate affect Objective Data Active Medications Acetaminophen (Acetaminophen 325 Mg Tablet) 650 mg PO Q6H PRN PRN Reason: Pain, Mild (Pain Scale 1-3) Last Admin: 04/07/22 11:41 Dose: 650 mg Documented By: PANCHITO Aspirin (Aspirin Enteric Coated 81 Mg Tablet.) 81 mg PO DAILY [facility] Last Admin: 04/11/22 08:34 Dose: 81 mg Documented By: SE Atorvastatin Calcium (Atorvastatin Calcium 80 Mg Tablet) 80 mg PO DAILY [facility] Last Admin: 04/11/22 08:34 Dose: 80 mg Documented By: SE Clopidogrel Bisulfate (Clopidogrel Bisulfate 75 Mg Tablet) 75 mg PO DAILY [facility] Last Admin: 04/11/22 08:34 Dose: 75 mg Documented By: SE Duloxetine HCl (Duloxetine Hcl 60 Mg Capsule.) 60 mg PO DAILY [facility] Last Admin: 04/11/22 08:34 Dose: 60 mg Documented By: SE Enoxaparin Sodium (Enoxaparin Sodium 40 Mg/0.4 Ml Syringe) 40 mg SUBCUT Q24H [facility] Last Admin: 04/10/22 19:42 Dose: 40 mg Documented By: JATINDER Gabapentin (Gabapentin 400 Mg Capsule) 400 mg PO QID [facility] Last Admin: 04/11/22 13:35 Dose: 400 mg Documented By: SE Sodium Chloride (Ns) 1,000 mls @ 100 mls/hr IVCONT .Q10H [facility] Last Admin: 04/11/22 13:35 Dose: 100 mls/hr Documented By: SE Ibuprofen (Ibuprofen 400 Mg Tablet) 400 mg PO Q6H PRN PRN Reason: Headache Last Admin: 04/10/22 20:33 Dose: 400 mg Documented By: JATINDER Melatonin (Melatonin 3 Mg Tablet) 6 mg PO BEDTIME PRN PRN Reason: Insomnia Last Admin: 04/11/22 00:48 Dose: 6 mg Documented By: JATINDER Midodrine (Midodrine Hcl 10 Mg Tablet) 10 mg PO BID [facility] Last Admin: 04/11/22 08:34 Dose: 10 mg Documented By: SE Multivitamins/Vitamin C (Multivitamin Tablet) 1 tab PO DAILY [facility] Last Admin: 04/11/22 08:34 Dose: 1 tab Documented By: SE Omeprazole (Omeprazole 20 Mg Yolanda.) 20 mg PO DAILY@0630 [facility] Last Admin: 04/11/22 05:31 Dose: 20 mg Documented By: JATINDER Ondansetron HCl (Ondansetron Hcl 4 Mg/2 Ml Vial) 4 mg IVPUSH Q8H PRN PRN Reason: Nausea and Vomiting Pharmacy Consult (Consult Rx Perform Med Rec) 1 each MISCELLANE ONCE PRN PRN Reason: Consult order Sodium Chloride (0.9 % Sodium Chloride Flush 3 Ml Syringe) 3 ml IVFLUSH QSHIFT [facility] Last Admin: 04/11/22 13:37 Dose: Not Given Documented By: SE Non-Admin Reason: IV Running Labs CBC & Chem 7: 04/08/22 05:38 04/08/22 05:38 Assessment and Plan (1) Syncope: Status: Acute (2) Orthostatic hypotension: Status: Acute Plan ?56-year-old female with a pertinent history of coronary artery disease status post stent, major depressive disorder, essential hypertension, mixed hyperlipidemia, peripheral neuropathy who presents to the emergency department for evaluation of syncope. 1.Orthostatic Hypotension and postural HTN blood pressure seems flactuatin -Persistent at this time -continue 5 bid -Seen by Dr. Sheridan witht the following recommendation REC: decr Neurontin which has been assoc with OH; use leg stockings; midridine during daytime --can incr ot 120 bid ( in am and mid-day); PT eval to help with getting uop slowly; leg compressive stoking; sleep with HOB elevaed; glass of water in am before gettig out o f bed; will consider short acting BP at bedtime to help manage nocturnal supine seere HTN She may be a candidate for northera which we can assess as outpt; consider Neuro eval to make sure not missing any other cause of OH other than presumed d/t autonomic neurpoapthy foirm her DM -IV normal saline 2. Hypertension--Hold meds at this time, may need meds at bedtime 3. Coronary artery disease -dual antiplatelet therapy/high-intensity statin DVT prophylaxis: Lovenox 40 mg daily Do not resuscitate ongoing hospitalization need : symptomatic orthostatic hypOtension with onging work up and med adjustment Quality Stroke Does the patient have a stroke diagnosis?: No VTE Prior VTE?: No VTE Risk Level:: Medical - moderate - high VTE Device Contraindication: N/A - Device Ordered VTE Drug Contraindication: N/A - Med Ordered
[2022-04-11] MEDS: Ibuprofen 400 MG TABLET PO (17:16)
[2022-04-11] MEDS: Enoxaparin Sodium 40 MG/0.4 ML SYRINGE SUBCUT (19:58)
[2022-04-12] VITALS (11 sets, daily range): BP systolic 78–182; BP diastolic 50–86; PULSE 59–72; RESP 16–19; TEMP 36–37.1; O2SAT 95–99
[2022-04-12] MEDS: 0.9 % Sodium Chloride 1,000 ML 100 ML IVCONT ×3 (00:45→19:42)
[2022-04-12] MEDS: Omeprazole 20 MG CAPSULE.DR PO (05:45)
[2022-04-12] MEDS: Aspirin Enteric Coated 81 MG TABLET.DR PO (07:51)
[2022-04-12] MEDS: Gabapentin 400 MG CAPSULE PO ×5 (07:51→21:08)
[2022-04-12] MEDS: Atorvastatin Calcium 80 MG TABLET PO (07:51)
[2022-04-12] MEDS: DULoxetine HCl 60 MG CAPSULE.DR PO (07:52)
[2022-04-12] MEDS: Clopidogrel Bisulfate 75 MG TABLET PO (07:52)
[2022-04-12] MEDS: Multivitamin TABLET 1 TAB PO (07:52)
[2022-04-12] MEDS: Midodrine HCl 10 MG TABLET PO ×2 (07:52→21:08)
--- NOTE | 2022-04-12 10:27 | PM.PNNEP ---
Subjective Subjective Date of Service: 04/12/22 Interval history: Seen and examiend,events noted C/O incr neuropathy leg pain on lower doses of neurontin Physical Exam Vital Signs: Vital Signs: Last Vital Signs Temp 98.7 F 04/12/22 07:30 Pulse 72 04/12/22 10:05 Resp 18 04/12/22 07:30 BP 182/86 H 04/12/22 10:05 Pulse Ox 95 04/12/22 10:05 O2 Del Method 04/12/22 07:30 O2 Flow Rate 98 04/04/22 22:38 BMI result Body Mass Index 29.3 Const: Other: General: AO X 3, no acute distress Resp: CTA bilateral CVS: S1,S2,RRR GI: +BS, NT, no distention Skin: No rash Neuro: motor grossly intact Psych: appropriate affect General: cooperative, no acute distress, alert and awake Nutritional Appearance: well nourished Orientation/consciousness: patient oriented x3 Limitations: no limitations HEENT: Head: Yes normal to inspection and Yes atraumatic Ears: hearing grossly normal bilaterally and external ears normal General nose exam: Normal external nose present, no nasal discharge noted and no epistaxis Face and sinus: Yes normal facial exam, No abrasion and No laceration Mouth: Normal oral and palatal mucosa present, no drooling and no muffled voice Eyes: General: appearance normal, both eyes and all related structures Periorbital: periorbital findings normal Eyelids: Yes eyelids normal Conjunctivae: conjunctivae normal Pupils: Equal, round and reactive pupils present EOM: EOMs intact bilaterally Neck: Neck: Yes normal visual inspection, Yes full ROM and Yes no lymphadenopathy Chest: Chest palpation & inspection: normal inspection of the chest Resp: Effort & Inspection: normal respiratory effort and able to speak in complete sentences Auscultation: clear to auscultation bilaterally Cardio: Rate: regular rate Rhythm: regular rhythm GI: Inspection: Yes normal to inspection Neuro: General: patient oriented x3 and moves all extremities Cranial nerves: Yes Equal, round and reactive pupils present Cognition (Neuro): normal cognition Motor exam (neuro): 5/5 motor strength present throughout Sensory Exam: Normal double simultaneous stimulation for sensation Coordination: [id number]-bakl test normal Extrem: General: Yes normal to inspection, Yes full ROM and Yes capillary refill normal Psych: Appearance: grossly normal Mental Status: mental status grossly normal Affect: normal affect Attitude: cooperative Thought process: Normal thought process present Thought content: Normal thought content present Insight: Good insight present (Psych) Objective Data Labs CBC & Chem 7: 04/08/22 05:38 04/08/22 05:38 Procedures Date of Service Date of Service: 04/12/22 Assessment & Plan Assessment and plan (1) Orthostatic hypotension: Status: Acute (2) HTN (hypertension): Status: Acute (3) CAD (coronary artery disease): Status: Acute Plan 56-year-old female with a pertinent history of coronary artery disease status post stent, major depressive disorder, essential hypertension, mixed hyperlipidemia, peripheral neuropathy who presents to the emergency department for evaluation of syncope. Supine HTN with severe symptomatic OH ( [facility]): very impressive drops in BP with upright position and supine severe Systolic HTN It does not appear that the Neurontin is causing the OH and she is markeldy worse with her periph neuropathic pain onthe lower dose of neurotin REC: ok to incr the Neurontin back to her usu dose; use leg stockings; midridine during daytime --can incr 10 bid ( in am and mid-day); PT eval to help with getting up slowly; leg compressive stoking; sleep with HOB elevaed; glass of water in am before gettig out of bed; will consider short acting BP at bedtime to help manage nocturnal supine severe HTN; will add florinef 0.1 qam She may be a candidate for northera which we can assess as outpt; consider Neuro eval to make sure not missing any other cause of OH other than presumed d/t autonomic neurpoapthy from her DM Time Spent With Patient Time: Total time spent is greater than 50% in coordination of care (as documented) at patient's floor/unit and/or counseling patient: Progress Note: Quality Stroke Does the patient have a stroke diagnosis?: No
--- NOTE | 2022-04-12 11:29 | P.PNIM_ITS ---
Subjective Subjective Date of Service: 04/12/22 Interval History: Patient still getting dizzy with standing up. Review of Systems she is still symptomatic- dizziness due to orthostasis, has some nausea also Physical Exam Vital Signs: Vital Signs: Last Vital Signs Temp 98.2 F 04/12/22 10:37 Pulse 72 04/12/22 10:39 Resp 18 04/12/22 07:30 BP 79/51 L 04/12/22 10:40 Pulse Ox 98 04/12/22 10:39 O2 Del Method 04/12/22 10:39 O2 Flow Rate 98 04/04/22 22:38 BMI result Body Mass Index 29.3 General: AO X 3, no acute distress Resp:? CTA bilateral CVS: S1,S2,RRR GI: +BS, NT, no distention Skin: No rash Neuro:? motor grossly intact Psych: appropriate affect Const: Other: General: AO X 3, no acute distress Resp: CTA bilateral CVS: S1,S2,RRR GI: +BS, NT, no distention Skin: No rash Neuro: motor grossly intact Psych: appropriate affect Objective Data Active Medications Acetaminophen (Acetaminophen 325 Mg Tablet) 650 mg PO Q6H PRN PRN Reason: Pain, Mild (Pain Scale 1-3) Last Admin: 04/07/22 11:41 Dose: 650 mg Documented By: PANCHITO Aspirin (Aspirin Enteric Coated 81 Mg Tablet.) 81 mg PO DAILY [facility] Last Admin: 04/12/22 07:51 Dose: 81 mg Documented By: AB Atorvastatin Calcium (Atorvastatin Calcium 80 Mg Tablet) 80 mg PO DAILY [facility] Last Admin: 04/12/22 07:51 Dose: 80 mg Documented By: AB Clopidogrel Bisulfate (Clopidogrel Bisulfate 75 Mg Tablet) 75 mg PO DAILY [facility] Last Admin: 04/12/22 07:52 Dose: 75 mg Documented By: AB Duloxetine HCl (Duloxetine Hcl 60 Mg Capsule.) 60 mg PO DAILY [facility] Last Admin: 04/12/22 07:52 Dose: 60 mg Documented By: AB Enoxaparin Sodium (Enoxaparin Sodium 40 Mg/0.4 Ml Syringe) 40 mg SUBCUT Q24H [facility] Last Admin: 04/11/22 19:58 Dose: 40 mg Documented By: JATINDER Fludrocortisone Acetate (Fludrocortisone Acetate 0.1 Mg Tablet) 0.1 mg PO DAILY [facility] Gabapentin (Gabapentin 400 Mg Capsule) 400 mg PO QID [facility] Last Admin: 04/12/22 07:51 Dose: 400 mg Documented By: AB Sodium Chloride (Ns) 1,000 mls @ 100 mls/hr IVCONT .Q10H [facility] Last Admin: 04/12/22 09:41 Dose: 100 mls/hr Documented By: PANCHITO Ibuprofen (Ibuprofen 400 Mg Tablet) 400 mg PO Q6H PRN PRN Reason: Headache Last Admin: 04/11/22 17:16 Dose: 400 mg Documented By: RIOSCKELSEY Melatonin (Melatonin 3 Mg Tablet) 6 mg PO BEDTIME PRN PRN Reason: Insomnia Last Admin: 04/11/22 00:48 Dose: 6 mg Documented By: JATINDER Midodrine (Midodrine Hcl 10 Mg Tablet) 10 mg PO BID [facility] Last Admin: 04/12/22 07:52 Dose: 10 mg Documented By: AB Multivitamins/Vitamin C (Multivitamin Tablet) 1 tab PO DAILY [facility] Last Admin: 04/12/22 07:52 Dose: 1 tab Documented By: AB Omeprazole (Omeprazole 20 Mg Capsule.Dr) 20 mg PO DAILY@0630 [facility] Last Admin: 04/12/22 05:45 Dose: 20 mg Documented By: JATINDER Ondansetron HCl (Ondansetron Hcl 4 Mg/2 Ml Vial) 4 mg IVPUSH Q8H PRN PRN Reason: Nausea and Vomiting Pharmacy Consult (Consult Rx Perform Med Rec) 1 each MISCELLANE ONCE PRN PRN Reason: Consult order Sodium Chloride (0.9 % Sodium Chloride Flush 3 Ml Syringe) 3 ml IVFLUSH QSHIFT [facility] Last Admin: 04/12/22 07:54 Dose: Not Given Documented By: AB Non-Admin Reason: IV Running Labs CBC & Chem 7: 04/08/22 05:38 04/08/22 05:38 Assessment and Plan (1) Syncope: Status: Acute (2) Orthostatic hypotension: Status: Acute Plan ?56-year-old female with a pertinent history of coronary artery disease status post stent, major depressive disorder, essential hypertension, mixed hyperlipidemia, peripheral neuropathy who presents to the emergency department for evaluation of syncope. 1.Orthostatic Hypotension and postural HTN blood pressure seems flactuatin -Persistent at this time the midodrine adjusted to 10 mg p.o. b.i.d. and also added fludrocortisone since patient is having persistent symptoms. Continue IV fluids also. -Seen by Dr. Sheridan witht the following recommendation REC: decr Neurontin which has been assoc with OH; use leg stockings; midridine during daytime --can incr ot 120 bid ( in am and mid-day); PT eval to help with getting uop slowly; leg compressive stoking; sleep with HOB elevaed; glass of water in am before gettig out o f bed; will consider short acting BP at bedtime to help manage nocturnal supine seere HTN She may be a candidate for northera which we can assess as outpt; consider Neuro eval to make sure not missing any other cause of OH other than presumed d/t autonomic neurpoapthy foirm her DM -IV normal saline 2. Hypertension--Hold meds at this time, may need meds at bedtime 3. Coronary artery disease -dual antiplatelet therapy/high-intensity statin DVT prophylaxis: Lovenox 40 mg daily Do not resuscitate ongoing hospitalization need : symptomatic orthostatic hypOtension with onging work up and med adjustment Quality Stroke Does the patient have a stroke diagnosis?: No VTE Prior VTE?: No VTE Risk Level:: Medical - moderate - high VTE Device Contraindication: N/A - Device Ordered VTE Drug Contraindication: N/A - Med Ordered
[2022-04-12] MEDS: Fludrocortisone Acetate 0.1 MG TABLET PO (13:10)
[2022-04-12] MEDS: Enoxaparin Sodium 40 MG/0.4 ML SYRINGE SUBCUT (21:08)
[2022-04-12] MEDS: 0.9 % Sodium Chloride Flush 3 ML SYRINGE IVFLUSH (21:09)
[2022-04-13] VITALS (11 sets, daily range): BP systolic 76–167; BP diastolic 51–83; PULSE 61–74; RESP 16–18; TEMP 36–36.4; O2SAT 97–99
[2022-04-13] MEDS: Omeprazole 20 MG CAPSULE.DR PO (05:39)
[2022-04-13] MEDS: 0.9 % Sodium Chloride 1,000 ML 100 ML IVCONT ×2 (05:41→15:19)
[2022-04-13] MEDS: Gabapentin 400 MG CAPSULE PO ×4 (09:49→21:18)
[2022-04-13] MEDS: Ibuprofen 400 MG TABLET PO (09:49)
[2022-04-13] MEDS: Fludrocortisone Acetate 0.1 MG TABLET PO (09:50)
[2022-04-13] MEDS: Atorvastatin Calcium 80 MG TABLET PO (09:51)
[2022-04-13] MEDS: Multivitamin TABLET 1 TAB PO (09:51)
[2022-04-13] MEDS: DULoxetine HCl 60 MG CAPSULE.DR PO (09:52)
[2022-04-13] MEDS: Clopidogrel Bisulfate 75 MG TABLET PO (09:52)
[2022-04-13] MEDS: Midodrine HCl 10 MG TABLET PO (09:52)
[2022-04-13] MEDS: Aspirin Enteric Coated 81 MG TABLET.DR PO (09:56)
--- NOTE | 2022-04-13 09:57 | P.PNNP_ITS ---
Subjective Subjective Date of Service: 04/13/22 Interval history: seen and examined, events noted Physical Exam Vital Signs: Vital Signs: Last Vital Signs Temp 97.5 F 04/14/22 04:00 Pulse 61 04/14/22 04:00 Resp 18 04/14/22 04:00 BP 89/58 L 04/14/22 08:00 Pulse Ox 98 04/14/22 04:00 O2 Del Method 04/14/22 04:00 O2 Flow Rate 98 04/04/22 22:38 BMI result Body Mass Index 29.3 Const: Other: General: AO X 3, no acute distress Resp: CTA bilateral CVS: S1,S2,RRR GI: +BS, NT, no distention Skin: No rash Neuro: motor grossly intact Psych: appropriate affect General: cooperative, no acute distress, alert and awake Nutritional Appearance: well nourished Orientation/consciousness: patient oriented x3 Limitations: no limitations HEENT: Head: Yes normal to inspection and Yes atraumatic Ears: hearing grossly normal bilaterally and external ears normal General nose exam: Normal external nose present, no nasal discharge noted and no epistaxis Face and sinus: Yes normal facial exam, No abrasion and No laceration Mouth: Normal oral and palatal mucosa present, no drooling and no muffled voice Eyes: General: appearance normal, both eyes and all related structures Periorbital: periorbital findings normal Eyelids: Yes eyelids normal Conjunctivae: conjunctivae normal Pupils: Equal, round and reactive pupils present EOM: EOMs intact bilaterally Neck: Neck: Yes normal visual inspection, Yes full ROM and Yes no lymphadenopathy Chest: Chest palpation & inspection: normal inspection of the chest Resp: Effort & Inspection: normal respiratory effort and able to speak in complete sentences Auscultation: clear to auscultation bilaterally Cardio: Rate: regular rate Rhythm: regular rhythm GI: Inspection: Yes normal to inspection Neuro: General: patient oriented x3 and moves all extremities Cranial ner ves: Yes Equal, round and reactive pupils present Cognition (Neuro): normal cognition Motor exam (neuro): 5/5 motor strength present throughout Sensory Exam: Normal double simultaneous stimulation for sensation Coordination: [id number] test normal Extrem: General: Yes normal to inspection, Yes full ROM and Yes capillary refill normal Psych: Appearance: grossly normal Mental Status: mental status grossly normal Affect: normal affect Attitude: cooperative Thought process: Normal thought process present Thought content: Normal thought content present Insight: Good insight present (Psych) Objective Data Labs CBC & Chem 7: 04/08/22 05:38 04/08/22 05:38 Procedures Date of Service Date of Service: 04/13/22 Assessment & Plan Assessment and plan (1) Orthostatic hypotension: Status: Acute (2) HTN (hypertension): Status: Acute (3) CAD (coronary artery disease): Status: Acute Plan 56-year-old female with a pertinent history of coronary artery disease status post stent, major depressive disorder, essential hypertension, mixed hyperlipidemia, peripheral neuropathy who presents to the emergency department for evaluation of syncope. Supine HTN with severe symptomatic OH ( [facility]): very impressive drops in BP with upright position and supine severe Systolic HTN It does not appear that the Neurontin is causing the OH and she is markeldy worse with her periph neuropathic pain onthe lower dose of neurotin REC: ok to incr the Neurontin back to her usu dose; use leg stockings; midridine during daytime --can incr 10 bid ( in am and mid-day); PT eval to help with getting up slowly; leg compressive stoking; sleep with HOB elevaed; glass of water in am before gettig out of bed; will consider short acting BP at bedtime to help manage nocturnal supine severe HTN; will add florinef 0.1 qam She may be a candidate for northera which we can assess as outpt; consider Neuro eval to make sure not missing any other cause of OH other than presumed d/t autonomic neurpoapthy from her DM Time Spent With Patient Time: Total time spent is greater than 50% in coordination of care (as documented) at patient's floor/unit and/or counseling patient: Progress Note: Quality Stroke Does the patient have a stroke diagnosis?: No
--- NOTE | 2022-04-13 11:22 | P.PNIM_ITS ---
Subjective Subjective Date of Service: 04/13/22 Interval History: still orhostasis-Patient still getting dizzy with standing up. Review of Systems she is still symptomatic- dizziness due to orthostasis, has some nausea also Physical Exam Vital Signs: Vital Signs: Last Vital Signs Temp 96.8 F 04/13/22 07:10 Pulse 72 04/13/22 10:23 Resp 16 04/13/22 07:10 BP 76/51 L 04/13/22 10:23 Pulse Ox 97 04/13/22 09:43 O2 Del Method 04/13/22 07:10 O2 Flow Rate 98 04/04/22 22:38 BMI result Body Mass Index 29.3 General: AO X 3, no acute distress Resp:? CTA bilateral CVS: S1,S2,RRR GI: +BS, NT, no distention Skin: No rash Neuro:? motor grossly intact Psych: appropriate affect Objective Data Active Medications Acetaminophen (Acetaminophen 325 Mg Tablet) 650 mg PO Q6H PRN PRN Reason: Pain, Mild (Pain Scale 1-3) Last Admin: 04/07/22 11:41 Dose: 650 mg Documented By: PANCHITO Aspirin (Aspirin Enteric Coated 81 Mg Tablet.) 81 mg PO DAILY [facility] Last Admin: 04/13/22 09:56 Dose: 81 mg Documented By: HANNA Atorvastatin Calcium (Atorvastatin Calcium 80 Mg Tablet) 80 mg PO DAILY [facility] Last Admin: 04/13/22 09:51 Dose: 80 mg Documented By: HANNA Clopidogrel Bisulfate (Clopidogrel Bisulfate 75 Mg Tablet) 75 mg PO DAILY [facility] Last Admin: 04/13/22 09:52 Dose: 75 mg Documented By: HANNA Duloxetine HCl (Duloxetine Hcl 60 Mg Capsule.) 60 mg PO DAILY [facility] Last Admin: 04/13/22 09:52 Dose: 60 mg Documented By: HANNA Enoxaparin Sodium (Enoxaparin Sodium 40 Mg/0.4 Ml Syringe) 40 mg SUBCUT Q24H [facility] Last Admin: 04/12/22 21:08 Dose: 40 mg Documented By: MONI Fludrocortisone Acetate (Fludrocortisone Acetate 0.1 Mg Tablet) 0.1 mg PO DAILY [facility] Last Admin: 04/13/22 09:50 Dose: 0.1 mg Documented By: HANNA Gabapentin (Gabapentin 400 Mg Capsule) 400 mg PO QID [facility] Last Admin: 04/13/22 09:49 Dose: 400 mg Documented By: HANNA Sodium Chloride (Ns) 1,000 mls @ 100 mls/hr IVCONT .Q10H [facility] Last Admin: 04/13/22 05:41 Dose: 100 mls/hr Documented By: MONI Ibuprofen (Ibuprofen 400 Mg Tablet) 400 mg PO Q6H PRN PRN Reason: Headache Last Admin: 04/13/22 09:49 Dose: 400 mg Documented By: HANNA Melatonin (Melatonin 3 Mg Tablet) 6 mg PO BEDTIME PRN PRN Reason: Insomnia Last Admin: 04/11/22 00:48 Dose: 6 mg Documented By: JATINDER Midodrine (Midodrine Hcl 10 Mg Tablet) 10 mg PO BID [facility] Last Admin: 04/13/22 09:52 Dose: 10 mg Documented By: HANNA Multivitamins/Vitamin C (Multivitamin Tablet) 1 tab PO DAILY [facility] Last Admin: 04/13/22 09:51 Dose: 1 tab Documented By: HANNA Omeprazole (Omeprazole 20 Mg Capsule.) 20 mg PO DAILY@0630 [facility] Last Admin: 04/13/22 05:39 Dose: 20 mg Documented By: MONI Ondansetron HCl (Ondansetron Hcl 4 Mg/2 Ml Vial) 4 mg IVPUSH Q8H PRN PRN Reason: Nausea and Vomiting Pharmacy Consult (Consult Rx Perform Med Rec) 1 each MISCELLANE ONCE PRN PRN Reason: Consult order Sodium Chloride (0.9 % Sodium Chloride Flush 3 Ml Syringe) 3 ml IVFLUSH QSHIFT [facility] Last Admin: 04/13/22 09:56 Dose: Not Given Documented By: HANNA Non-Admin Reason: IV Running Labs CBC & Chem 7: 04/08/22 05:38 04/08/22 05:38 Assessment and Plan (1) Orthostatic hypotension: Status: Acute Plan 56-year-old female with a pertinent history of coronary artery disease status post stent, major depressive disorder, essential hypertension, mixed hyperlipidemia, peripheral neuropathy who presents to the emergency department for evaluation of syncope. 1.Orthostatic Hypotension and postural HTN blood pressure seems flactuatin orthostasis Persistent at this time ?the midodrine adjusted to 10 mg p.o. b.i.d. and fludrocortisone since patient is having persistent symptoms.? Continue IV fluids also. -Seen by Dr. Sheridan witht the following recommendation REC: decr Neurontin which has been assoc with [place]; use leg stockings; midridine during daytime --can incr ot 120 bid ( in am and mid-day); PT eval to help with getting uop slowly; leg compressive stoking; sleep with HOB elevaed; glass of water in am before gettig out o f bed; will consider short acting BP at bedtime to help manage nocturnal supine seere HTN She may be a candidate for northera which we can assess as outpt; consider Neuro eval to make sure not missing any other cause of [place] other than presumed d/t autonomic neurpoapthy foirm her DM -IV normal saline nephro followin 2. Hypertension--Hold meds at this time, may need meds at bedtime 3. Coronary artery disease -dual antiplatelet therapy/high-intensity statin DVT prophylaxis: Lovenox 40 mg daily Do not resuscitate ongoing hospitalization need : symptomatic orthostatic hypOtension with onging work up and med adjustment Quality Stroke Does the patient have a stroke diagnosis?: No VTE Prior VTE?: No VTE Risk Level:: Medical - moderate - high VTE Device Contraindication: N/A - Device Ordered VTE Drug Contraindication: N/A - Med Ordered
[2022-04-13] MEDS: Enoxaparin Sodium 40 MG/0.4 ML SYRINGE SUBCUT (21:18)
[2022-04-14] VITALS (11 sets, daily range): BP systolic 89–164; BP diastolic 56–91; PULSE 61–74; RESP 17–20; TEMP 36.2–36.7; O2SAT 98–100
[2022-04-14] MEDS: 0.9 % Sodium Chloride 1,000 ML 100 ML IVCONT ×3 (00:01→19:44)
[2022-04-14] MEDS: Omeprazole 20 MG CAPSULE.DR PO (05:41)
[2022-04-14] MEDS: DULoxetine HCl 60 MG CAPSULE.DR PO (09:37)
[2022-04-14] MEDS: Atorvastatin Calcium 80 MG TABLET PO (09:38)
[2022-04-14] MEDS: Fludrocortisone Acetate 0.1 MG TABLET PO (09:38)
[2022-04-14] MEDS: Multivitamin TABLET 1 TAB PO (09:38)
[2022-04-14] MEDS: Aspirin Enteric Coated 81 MG TABLET.DR PO (09:38)
[2022-04-14] MEDS: Midodrine HCl 10 MG TABLET PO ×2 (09:38→19:55)
[2022-04-14] MEDS: Gabapentin 400 MG CAPSULE PO ×4 (09:38→19:55)
[2022-04-14] MEDS: Clopidogrel Bisulfate 75 MG TABLET PO (09:38)
[2022-04-14] MEDS: Ibuprofen 400 MG TABLET PO (11:19)
--- NOTE | 2022-04-14 12:49 | P.PNIM_ITS ---
Subjective Subjective Date of Service: 04/14/22 Interval History: still orhostasis-Patient still getting dizzy with standing up. Review of Systems she is still symptomatic- dizziness due to orthostasis, has some nausea also Physical Exam Vital Signs: Vital Signs: Last Vital Signs Temp 97.3 F 04/14/22 11:17 Pulse 63 04/14/22 11:17 Resp 20 04/14/22 11:17 BP 152/75 H 04/14/22 11:17 Pulse Ox 98 04/14/22 11:17 O2 Del Method 04/14/22 11:17 O2 Flow Rate 98 04/04/22 22:38 BMI result Body Mass Index 29.3 General: AO X 3, no acute distress Resp:? CTA bilateral CVS: S1,S2,RRR GI: +BS, NT, no distention Skin: No rash Neuro:? motor grossly intact Psych: appropriate affect Objective Data Active Medications Acetaminophen (Acetaminophen 325 Mg Tablet) 650 mg PO Q6H PRN PRN Reason: Pain, Mild (Pain Scale 1-3) Last Admin: 04/07/22 11:41 Dose: 650 mg Documented By: PANCHITO Aspirin (Aspirin Enteric Coated 81 Mg Tablet.) 81 mg PO DAILY [facility] Last Admin: 04/14/22 09:38 Dose: 81 mg Documented By: HANNA Atorvastatin Calcium (Atorvastatin Calcium 80 Mg Tablet) 80 mg PO DAILY [facility] Last Admin: 04/14/22 09:38 Dose: 80 mg Documented By: HANNA Clopidogrel Bisulfate (Clopidogrel Bisulfate 75 Mg Tablet) 75 mg PO DAILY [facility] Last Admin: 04/14/22 09:38 Dose: 75 mg Documented By: HANNA Duloxetine HCl (Duloxetine Hcl 60 Mg Capsule.) 60 mg PO DAILY [facility] Last Admin: 04/14/22 09:37 Dose: 60 mg Documented By: HANNA Enoxaparin Sodium (Enoxaparin Sodium 40 Mg/0.4 Ml Syringe) 40 mg SUBCUT Q24H [facility] Last Admin: 04/13/22 21:18 Dose: 40 mg Documented By: ARNOLDO Fludrocortisone Acetate (Fludrocortisone Acetate 0.1 Mg Tablet) 0.1 mg PO DAILY [facility] Last Admin: 04/14/22 09:38 Dose: 0.1 mg Documented By: HANNA Gabapentin (Gabapentin 400 Mg Capsule) 400 mg PO QID [facility] Last Admin: 04/14/22 12:41 Dose: 400 mg Documented By: HANNA Sodium Chloride (Ns) 1,000 mls @ 100 mls/hr IVCONT .Q10H [facility] Last Admin: 04/14/22 09:43 Dose: 100 mls/hr Documented By: HANNA Ibuprofen (Ibuprofen 400 Mg Tablet) 400 mg PO Q6H PRN PRN Reason: Headache Last Admin: 04/14/22 11:19 Dose: 400 mg Documented By: HANNA Melatonin (Melatonin 3 Mg Tablet) 6 mg PO BEDTIME PRN PRN Reason: Insomnia Last Admin: 04/11/22 00:48 Dose: 6 mg Documented By: JATINDER Midodrine (Midodrine Hcl 10 Mg Tablet) 10 mg PO BID [facility] Last Admin: 04/14/22 09:38 Dose: 10 mg Documented By: HANNA Multivitamins/Vitamin C (Multivitamin Tablet) 1 tab PO DAILY [facility] Last Admin: 04/14/22 09:38 Dose: 1 tab Documented By: HANNA Omeprazole (Omeprazole 20 Mg Capsule.) 20 mg PO DAILY@0630 [facility] Last Admin: 04/14/22 05:41 Dose: 20 mg Documented By: ARNOLDO Ondansetron HCl (Ondansetron Hcl 4 Mg/2 Ml Vial) 4 mg IVPUSH Q8H PRN PRN Reason: Nausea and Vomiting Pharmacy Consult (Consult Rx Perform Med Rec) 1 each MISCELLANE ONCE PRN PRN Reason: Consult order Sodium Chloride (0.9 % Sodium Chloride Flush 3 Ml Syringe) 3 ml IVFLUSH QSHIFT [facility] Last Admin: 04/14/22 07:12 Dose: Not Given Documented By: HANNA Non-Admin Reason: IV Running Labs CBC & Chem 7: 04/08/22 05:38 04/08/22 05:38 Assessment and Plan (1) Orthostatic hypotension: Status: Acute (2) Neuropathy: Status: Acute Plan 56-year-old female with a pertinent history of coronary artery disease status post stent, major depressive disorder, essential hypertension, mixed hyperlipidemia, peripheral neuropathy who presents to the emergency department for evaluation of syncope. 1.Orthostatic Hypotension and postural HTN blood pressure seems flactuatin orthostasis Persistent at this time ?the midodrine adjusted to 10 mg p.o. b.i.d. and? fludrocortisone since patient is having persistent symptoms.? Continue IV fluids also. -Seen by Dr. Sheridan witht the following recommendation REC: decr Neurontin which has been assoc with [place]; use leg stockings; midridine during daytime --can incr ot 120 bid ( in am and mid-day); PT eval to help with getting uop slowly; leg compressive stoking; sleep with HOB elevaed; glass of water in am before gettig out o f bed; will consider short acting BP at bedtime to help manage nocturnal supine seere HTN She may be a candidate for northera which we can assess as outpt; consider Neuro eval to make sure not missing any other cause of [place] other than presumed d/t autonomic neurpoapthy foirm her DM -IV normal saline nephro followin 2. Hypertension--Hold meds at this time, may need meds at bedtime 3. Coronary artery disease -dual antiplatelet therapy/high-intensity statin DVT prophylaxis: Lovenox 40 mg daily Do not resuscitate ongoing hospitalization need : symptomatic orthostatic hypOtension with onging work up and med adjustment Quality Stroke Does the patient have a stroke diagnosis?: No VTE Prior VTE?: No VTE Risk Level:: Medical - moderate - high VTE Device Contraindication: N/A - Device Ordered VTE Drug Contraindication: N/A - Med Ordered
--- NOTE | 2022-04-14 14:38 | MHC.CM.PN ---
EMR REVIEWED, PER HOSPITALIST PT NOT IMPROVING AND REMAINS ORTHOSTATIC AND CONT'S TO COMPLAIN OF DIZZINESS, NO PLAN FOR D/C TODAY, CM WILL CONT TO FOLLOW D/C NEEDS.
--- NOTE | 2022-04-14 15:38 | PM.PNNEP ---
Subjective Subjective Date of Service: 04/14/22 Interval history: ongoing orthostatics hypotensive no edema Physical Exam Vital Signs: Vital Signs: Last Vital Signs Temp 97.3 F 04/14/22 11:17 Pulse 63 04/14/22 11:17 Resp 20 04/14/22 11:17 BP 152/75 H 04/14/22 11:17 Pulse Ox 98 04/14/22 11:17 O2 Del Method 04/14/22 11:17 O2 Flow Rate 98 04/04/22 22:38 BMI result Body Mass Index 29.3 Const: Other: General: AO X 3, no acute distress Resp: CTA bilateral CVS: S1,S2,RRR GI: +BS, NT, no distention Skin: No rash Neuro: motor grossly intact Psych: appropriate affect Objective Data Labs CBC & Chem 7: 04/08/22 05:38 04/08/22 05:38 Procedures Date of Service Date of Service: 04/14/22 Assessment & Plan Assessment and plan (1) Orthostatic hypotension: Status: Acute (2) HTN (hypertension): Status: Acute (3) CAD (coronary artery disease): Status: Acute Plan 56-year-old female with a pertinent history of coronary artery disease status post stent, major depressive disorder, essential hypertension, mixed hyperlipidemia, peripheral neuropathy, with prior diabetic disease who presents to the emergency department for evaluation of syncope. 1. Orthostatic Hypotension a recent development in the last several weeks once she started Neurontin + Cymbalta. She is not sure why she is on both. SHe has had little benefit from a neuropathy standpoint with both. plan: - ok to c/w florinef and midodrine - add NaCl 2g daily - add compression socks - lets stop Cymbalta, and monitor for dycontinuation syndrome - c/w reduced dose gabapentin Time Spent With Patient Time: Total time spent is greater than 50% in coordination of care (as documented) at patient's floor/unit and/or counseling patient: Progress Note: Quality Stroke Does the patient have a stroke diagnosis?: No
[2022-04-14] MEDS: Sodium Chloride Tab 1 GM TABLET PO ×2 (16:32→19:55)
[2022-04-14] MEDS: Enoxaparin Sodium 40 MG/0.4 ML SYRINGE SUBCUT (19:55)
[2022-04-15] VITALS (11 sets, daily range): BP systolic 115–168; BP diastolic 65–87; PULSE 49–73; RESP 14–18; TEMP 36.4–36.9; O2SAT 96–99
[2022-04-15] MEDS: 0.9 % Sodium Chloride Flush 3 ML SYRINGE IVFLUSH ×4 (00:34→19:23)
[2022-04-15] MEDS: Omeprazole 20 MG CAPSULE.DR PO (05:48)
[2022-04-15] MEDS: 0.9 % Sodium Chloride 1,000 ML 100 ML IVCONT (05:48)
[2022-04-15] MEDS: Aspirin Enteric Coated 81 MG TABLET.DR PO (09:31)
[2022-04-15] MEDS: Sodium Chloride Tab 1 GM TABLET 2 GM PO (09:31)
[2022-04-15] MEDS: Gabapentin 400 MG CAPSULE PO (09:31)
[2022-04-15] MEDS: Fludrocortisone Acetate 0.1 MG TABLET PO (09:31)
[2022-04-15] MEDS: Midodrine HCl 10 MG TABLET PO ×2 (09:32→19:16)
[2022-04-15] MEDS: Multivitamin TABLET 1 TAB PO (09:32)
[2022-04-15] MEDS: Atorvastatin Calcium 80 MG TABLET PO (09:32)
[2022-04-15] MEDS: Clopidogrel Bisulfate 75 MG TABLET PO (09:32)
--- NOTE | 2022-04-15 09:53 | P.PNIM_ITS ---
Subjective Subjective Date of Service: 04/15/22 Interval History: still orhostasis-Patient still getting dizzy slightly improving than yesterday, less nauseated today. Review of Systems Orthostatic signs checked today still positive Denies any chest pain or shortness of breath or any blurry vision or headache. Physical Exam Vital Signs: Vital Signs: Last Vital Signs Temp 98.1 F 04/15/22 08:00 Pulse 71 04/15/22 08:00 Resp 18 04/15/22 08:00 BP 130/69 04/15/22 08:00 Pulse Ox 98 04/15/22 08:00 O2 Del Method 04/15/22 08:00 O2 Flow Rate 98 04/04/22 22:38 BMI result Body Mass Index 29.3 ? General: AO X 3, no acute distress Resp:? CTA bilateral CVS: S1,S2,RRR GI: +BS, NT, no distention Skin: No rash Neuro:? motor grossly intact Psych: appropriate affect Objective Data Active Medications Acetaminophen (Acetaminophen 325 Mg Tablet) 650 mg PO Q6H PRN PRN Reason: Pain, Mild (Pain Scale 1-3) Last Admin: 04/07/22 11:41 Dose: 650 mg Documented By: PANCHITO Aspirin (Aspirin Enteric Coated 81 Mg Tablet.) 81 mg PO DAILY [facility] Last Admin: 04/15/22 09:31 Dose: 81 mg Documented By: EDMOND Atorvastatin Calcium (Atorvastatin Calcium 80 Mg Tablet) 80 mg PO DAILY [facility] Last Admin: 04/15/22 09:32 Dose: 80 mg Documented By: EDMOND Clopidogrel Bisulfate (Clopidogrel Bisulfate 75 Mg Tablet) 75 mg PO DAILY [facility] Last Admin: 04/15/22 09:32 Dose: 75 mg Documented By: EDMOND Duloxetine HCl (Duloxetine Hcl 60 Mg Capsule.) 60 mg PO DAILY [facility] Last Admin: 04/14/22 09:37 Dose: 60 mg Documented By: HANNA Enoxaparin Sodium (Enoxaparin Sodium 40 Mg/0.4 Ml Syringe) 40 mg SUBCUT Q24H [facility] Last Admin: 04/14/22 19:55 Dose: 40 mg Documented By: CLAUDINE Fludrocortisone Acetate (Fludrocortisone Acetate 0.1 Mg Tablet) 0.1 mg PO DAILY [facility] Last Admin: 04/15/22 09:31 Dose: 0.1 mg Documented By: EDMOND Gabapentin (Gabapentin 400 Mg Capsule) 400 mg PO 0600,1200,1700,2200 [facility] Ibuprofen (Ibuprofen 400 Mg Tablet) 400 mg PO Q6H PRN PRN Reason: Headache Last Admin: 04/14/22 11:19 Dose: 400 mg Documented By: HANNA Melatonin (Melatonin 3 Mg Tablet) 6 mg PO BEDTIME PRN PRN Reason: Insomnia Last Admin: 04/11/22 00:48 Dose: 6 mg Documented By: JATINDER Midodrine (Midodrine Hcl 10 Mg Tablet) 10 mg PO BID [facility] Last Admin: 04/15/22 09:32 Dose: 10 mg Documented By: EDMOND Multivitamins/Vitamin C (Multivitamin Tablet) 1 tab PO DAILY [facility] Last Admin: 04/15/22 09:32 Dose: 1 tab Documented By: EDMOND Omeprazole (Omeprazole 20 Mg Capsule.Dr) 20 mg PO DAILY@0630 [facility] Last Admin: 04/15/22 05:48 Dose: 20 mg Documented By: CLAUDINE Ondansetron HCl (Ondansetron Hcl 4 Mg/2 Ml Vial) 4 mg IVPUSH Q8H PRN PRN Reason: Nausea and Vomiting Pharmacy Consult (Consult Rx Perform Med Rec) 1 each MISCELLANE ONCE PRN PRN Reason: Consult order Sodium Chloride (0.9 % Sodium Chloride Flush 3 Ml Syringe) 3 ml IVFLUSH QSHIFT [facility] Last Admin: 04/15/22 09:32 Dose: 3 ml Documented By: EDMOND Sodium Chloride (Sodium Chloride Tab 1 Gm Tablet) 2 gm PO BID [facility] Last Admin: 04/15/22 09:31 Dose: 2 gm Documented By: EDMOND Labs CBC & Chem 7: 04/08/22 05:38 04/08/22 05:38 Assessment and Plan (1) Orthostatic hypotension: Status: Acute Plan 56-year-old female with a pertinent history of coronary artery disease status post stent, major depressive disorder, essential hypertension, mixed hyperlipidemia, peripheral neuropathy who presents to the emergency department for evaluation of syncope. 1.Orthostatic Hypotension and postural HTN blood pressure seems flactuatin orthostasis Persistent at this time ?the midodrine adjusted to 10 mg p.o. b.i.d. and? fludrocortisone since patient is having persistent symptoms.? Continue IV fluids also. -Seen nephro with the following recommendation REC: veronica Neurontin which has been assoc with [place]; use leg stockings; midridine during daytime --can incr ot 120 bid ( in am and mid-day); PT eval to help with getting uop slowly; leg compressive stoking; sleep with HOB elevaed; glass of water in am before gettig out o f bed; will consider short acting BP at bedtime to help manage nocturnal supine seere HTN She may be a candidate for northera which we can assess as outpt; consider Neuro eval to make sure not missing any other cause of [place] other than presumed d/t autonomic neurpoapthy foirm her DM hold cymbalata psych eval added -if psych med adding to orthostasis. Nephro following 2. Hypertension--Hold meds at this time, may need meds at bedtime 3. Coronary artery disease -dual antiplatelet therapy/high-intensity statin DVT prophylaxis: Lovenox 40 mg daily Do not resuscitate ongoing hospitalization need : symptomatic orthostatic hypOtension with onging work up and med adjustment Quality Stroke Does the patient have a stroke diagnosis?: No VTE Prior VTE?: No VTE Risk Level:: Medical - moderate - high VTE Device Contraindication: N/A - Device Ordered VTE Drug Contraindication: N/A - Med Ordered
[2022-04-15] MEDS: Pregabalin 25 MG CAPSULE PO ×2 (14:23→19:16)
--- NOTE | 2022-04-15 17:26 | PM.PNNEP ---
Subjective Subjective Date of Service: 04/15/22 Interval history: feeling better but still orthostatic. titrating down cymbalta pregabalin used instead of gabapentin Physical Exam Vital Signs: Vital Signs: Last Vital Signs Temp 98.1 F 04/15/22 16:53 Pulse 49 L 04/15/22 16:53 Resp 18 04/15/22 16:53 BP 131/72 04/15/22 16:53 Pulse Ox 97 04/15/22 16:53 O2 Del Method 04/15/22 16:53 O2 Flow Rate 98 04/04/22 22:38 BMI result Body Mass Index 29.3 Const: Other: General: AO X 3, no acute distress Resp: CTA bilateral CVS: S1,S2,RRR GI: +BS, NT, no distention Skin: No rash Neuro: motor grossly intact Psych: appropriate affect Objective Data Labs CBC & Chem 7: 04/08/22 05:38 04/08/22 05:38 Procedures Date of Service Date of Service: 04/15/22 Assessment & Plan Assessment and plan (1) Orthostatic hypotension: Status: Acute (2) HTN (hypertension): Status: Acute (3) CAD (coronary artery disease): Status: Acute Plan 56-year-old female with a pertinent history of coronary artery disease status post stent, major depressive disorder, essential hypertension, mixed hyperlipidemia, peripheral neuropathy, with prior diabetic disease who presents to the emergency department for evaluation of syncope. 1. Orthostatic Hypotension a recent development in the last several weeks once she started Neurontin + Cymbalta. She is not sure why she is on both. SHe has had little benefit from a neuropathy standpoint with both. plan: - ok to c/w florinef and midodrine - c/w NaCl 2g daily - c/w compression socks - titrate off cymbalta - gabapentin changed to pregabalin Time Spent With Patient Time: Total time spent is greater than 50% in coordination of care (as documented) at patient's floor/unit and/or counseling patient: Progress Note: Quality Stroke Does the patient have a stroke diagnosis?: No
[2022-04-15] MEDS: Ibuprofen 400 MG TABLET PO (18:03)
--- NOTE | 2022-04-15 18:59 | P.CNPS_ITS ---
History of Present Illness Date of Service: 04/15/22 Chief Complaint: Syncope Reason for Consult: Evaluate need for duloxetine Requesting physician: Ely Wilson Sources of Information: patient interviewed, chart reviewed and crisis/core team assessment reviewed HPI Narrative: Pt is a 56 yo female with history of limited, mild depression. 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 Patient reports very limited psychiatric history and says sometimes she has had mild depressive moments but they only last for a day or so and then resolved on their own. She has never had any SI at all, other than one fleeting moment when fell and remained stuck for 2 days by herself in her apartment, in-between furniture unable to extract herself due to chronic mobility issues. Patient says she does not know why she was ever started on Cymbalta but agrees that it was likely due to help with neuropathic pain. She says she is fine with getting rid of it. Medical Evaluation Reviewed: Yes [facility] Medical History (Updated 04/06/22 @ 12:05 by Aj Abrams DO) CAD (coronary artery disease) Cardiomyopathy Depression Dyslipidemia GERD (gastroesophageal reflux disease) History of mammogram HTN (hypertension) Hyperglycemia Neuropathy Normal Pap smear Peripheral neuropathy Urinary incontinence Surgical History Breast abscess CTS (carpal tunnel syndrome) H/O cardiac catheterization (~01/2020) H/O colonoscopy History of ankle surgery Diagnostics Vital Signs (24Hr): Vital Signs - 24 hr 04/14/22 19:56 04/14/22 20:00 04/14/22 22:00 Temperature 98 F Pulse Rate 70 63 Respiratory Rate Blood Pressure 101/56 L 101/56 L 138/64 Pulse Oximetry 98 Oxygen Delivery Method 04/15/22 06:00 04/14/22 19:56 04/14/22 23:30 Temperature 97.6 F Pulse Rate 70 70 Respiratory Rate 17 Blood Pressure 161/79 H 162/81 H Pulse Oximetry 98 Oxygen Delivery Method Room Air 04/15/22 03:52 04/15/22 04:00 04/15/22 07:13 Temperature 97.5 F Pulse Rate 66 65 62 Respiratory Rate 18 Blood Pressure 168/85 H 123/74 159/87 H Pulse Oximetry 99 Oxygen Delivery Method Room Air 04/15/22 08:00 04/15/22 12:00 04/15/22 10:00 Temperature 98.1 F 98.5 F 98.5 F Pulse Rate 71 64 64 Respiratory Rate 18 18 18 Blood Pressure 130/69 138/83 138/83 Pulse Oximetry 98 99 99 Oxygen Delivery Method Room Air Room Air Room Air 04/15/22 14:58 04/15/22 16:53 Temperature 97.8 F 98.1 F Pulse Rate 62 49 L Respiratory Rate 18 18 Blood Pressure 146/76 H 131/72 Pulse Oximetry 98 97 Oxygen Delivery Method Room Air Room Air BMI result Body Mass Index 29.3 Labs Results: 04/08/22 05:38 04/17/22 05:06 Imaging Radiology Impressions: ITS Impressions Chest X-Ray 04/04/22 12:35 IMPRESSION: No acute disease Head CT 04/04/22 12:45 IMPRESSION: No acute intracranial pathology. Stable moderate to severe diffuse white matter changes. Statistically this relates to chronic small vessel ischemic disease, however other etiologies such as demyelinating disease could also be contributing.. Medications Medications Current Medications Acetaminophen (Acetaminophen 325 Mg Tablet) 650 mg PO Q6H PRN PRN Reason: Pain, Mild (Pain Scale 1-3) Last Admin: 04/07/22 11:41 Dose: 650 mg Aspirin (Aspirin Enteric Coated 81 Mg Tablet.) 81 mg PO DAILY [facility] Last Admin: 04/15/22 09:31 Dose: 81 mg Atorvastatin Calcium (Atorvastatin Calcium 80 Mg Tablet) 80 mg PO DAILY [facility] Last Admin: 04/15/22 09:32 Dose: 80 mg Clopidogrel Bisulfate (Clopidogrel Bisulfate 75 Mg Tablet) 75 mg PO DAILY [facility] Last Admin: 04/15/22 09:32 Dose: 75 mg Duloxetine HCl (Duloxetine Hcl 20 Mg Capsule.) 40 mg PO DAILY [facility] Enoxaparin Sodium (Enoxaparin Sodium 40 Mg/0.4 Ml Syringe) 40 mg SUBCUT Q24H [facility] Last Admin: 04/14/22 19:55 Dose: 40 mg Fludrocortisone Acetate (Fludrocortisone Acetate 0.1 Mg Tablet) 0.1 mg PO DAILY [facility] Last Admin: 04/15/22 09:31 Dose: 0.1 mg Ibuprofen (Ibuprofen 400 Mg Tablet) 400 mg PO Q6H PRN PRN Reason: Headache Last Admin: 04/15/22 18:03 Dose: 400 mg Melatonin (Melatonin 3 Mg Tablet) 6 mg PO BEDTIME PRN PRN Reason: Insomnia Last Admin: 04/11/22 00:48 Dose: 6 mg Midodrine (Midodrine Hcl 10 Mg Tablet) 10 mg PO BID [facility] Last Admin: 04/15/22 09:32 Dose: 10 mg Multivitamins/Vitamin C (Multivitamin Tablet) 1 tab PO DAILY [facility] Last Admin: 04/15/22 09:32 Dose: 1 tab Omeprazole (Omeprazole 20 Mg Capsule.Dr) 20 mg PO DAILY@0630 [facility] Last Admin: 04/15/22 05:48 Dose: 20 mg Ondansetron HCl (Ondansetron Hcl 4 Mg/2 Ml Vial) 4 mg IVPUSH Q8H PRN PRN Reason: Nausea and Vomiting Pharmacy Consult (Consult Rx Perform Med Rec) 1 each MISCELLANE ONCE PRN PRN Reason: Consult order Pregabalin (Pregabalin 25 Mg Capsule) 25 mg PO TID [facility] Last Admin: 04/15/22 14:23 Dose: 25 mg Sodium Chloride (0.9 % Sodium Chloride Flush 3 Ml Syringe) 3 ml IVFLUSH QSHIFT [facility] Last Admin: 04/15/22 15:23 Dose: 3 ml Sodium Chloride (Sodium Chloride Tab 1 Gm Tablet) 2 gm PO DAILY [facility] Allergies Allergies Allergy/AdvReac Type Severity Reaction Status Date / Time aspirin [ASPIRIN] Allergy Unknown SENSITIVITY Verified 03/01/22 09:49 lisinopril Allergy Unknown falls, Verified 03/01/22 09:49 muscle weakness Assessment & Plan Assessment & Plan (1) Orthostatic hypotension: Status: Acute Code(s): I95.1 - Orthostatic hypotension (2) Neuropathy: Status: Acute Code(s): G62.9 - Polyneuropathy, unspecified Plan Pt is a 56 yo female with history of infrequent, self-limiting mild depression. 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 It seems most likely the patient was started on duloxetine for help with chronic neuropathic pain. She is fine with getting off it and denies any significant history for depression or anxiety, having been off antidepressants for years and only having been started on duloxetine more recently. While duloxetine is much more known for causing hypertension or tachycardia, in rare occasions it can cause hypotension. If patient's medical team remains concerned for this medication to be potentially worsening hypotension, designer/writer agrees there is very low risk with lowering the dose or eventually discontinuing if necessary. Recreational Vehicle Repairer discussed case with Dr. Wilson. Also recommended is the 5th patient is going to be fully discontinued that once it is discontinued, she may benefit from being started on Prozac 10 mg for couple weeks as there can sometimes be discontinuation syndrome when getting off duloxetine. There are other options f or antidepressant antianxiety medications that should not cause hypotension, should the need arise to restart this type medication I spent minutes with the patient and/or on the patient floor today, greater than?50% of which was spent counseling/coordinating care. Patient educated on: diagnosis and medication risk/benefits Informed Consent: understands
[2022-04-15] MEDS: Enoxaparin Sodium 40 MG/0.4 ML SYRINGE SUBCUT (19:16)
[2022-04-16] VITALS (16 sets, daily range): BP systolic 67–190; BP diastolic 44–90; PULSE 63–76; RESP 14–18; TEMP 36.1–37; O2SAT 96–100
[2022-04-16] MEDS: Omeprazole 20 MG CAPSULE.DR PO (05:45)
[2022-04-16] MEDS: Midodrine HCl 10 MG TABLET PO ×2 (08:14→19:53)
[2022-04-16] MEDS: 0.9 % Sodium Chloride Flush 3 ML SYRINGE IVFLUSH ×3 (08:14→19:53)
[2022-04-16] MEDS: Clopidogrel Bisulfate 75 MG TABLET PO (08:14)
[2022-04-16] MEDS: Atorvastatin Calcium 80 MG TABLET PO (08:15)
[2022-04-16] MEDS: DULoxetine HCl 20 MG CAPSULE.DR 40 MG PO (08:15)
[2022-04-16] MEDS: Sodium Chloride Tab 1 GM TABLET 2 GM PO (08:15)
[2022-04-16] MEDS: Fludrocortisone Acetate 0.1 MG TABLET PO (08:15)
[2022-04-16] MEDS: Pregabalin 25 MG CAPSULE PO (08:16)
[2022-04-16] MEDS: Multivitamin TABLET 1 TAB PO (08:16)
[2022-04-16] MEDS: Aspirin Enteric Coated 81 MG TABLET.DR PO (08:16)
[2022-04-16] MEDS: Ketorolac Tromethamine 15 MG/ML VIAL IVPUSH (08:48)
[2022-04-16] MEDS: Gabapentin 400 MG CAPSULE PO ×5 (08:49→19:53)
--- NOTE | 2022-04-16 09:34 | P.PNIM_ITS ---
Subjective Subjective Date of Service: 04/16/22 Interval History: orthostasis Review of Systems seems dizziness again c/o foot pains( peripheral neuropathy's) denies any chest pain or shortness of breath or abdominal pain or fever chills Physical Exam Vital Signs: Vital Signs: Last Vital Signs Temp 97.6 F 04/16/22 07:16 Pulse 65 04/16/22 08:10 Resp 18 04/16/22 07:16 BP 100/66 04/16/22 08:10 Pulse Ox 97 04/16/22 07:16 O2 Del Method 04/16/22 07:16 O2 Flow Rate 98 04/04/22 22:38 BMI result Body Mass Index 29.3 General: AO X 3, no acute distress Resp:? CTA bilateral CVS: S1,S2,RRR GI: +BS, NT, no distention Skin: No rash Neuro:? motor grossly intact Psych: appropriate affect Objective Data Active Medications Acetaminophen (Acetaminophen 325 Mg Tablet) 650 mg PO Q6H PRN PRN Reason: Pain, Mild (Pain Scale 1-3) Last Admin: 04/07/22 11:41 Dose: 650 mg Documented By: PANCHITO Aspirin (Aspirin Enteric Coated 81 Mg Tablet.) 81 mg PO DAILY [facility] Last Admin: 04/16/22 08:16 Dose: 81 mg Documented By: COTEMA Atorvastatin Calcium (Atorvastatin Calcium 80 Mg Tablet) 80 mg PO DAILY [facility] Last Admin: 04/16/22 08:15 Dose: 80 mg Documented By: COTEMA Clopidogrel Bisulfate (Clopidogrel Bisulfate 75 Mg Tablet) 75 mg PO DAILY [facility] Last Admin: 04/16/22 08:14 Dose: 75 mg Documented By: COTEMA Duloxetine HCl (Duloxetine Hcl 20 Mg Capsule.) 40 mg PO DAILY [facility] Last Admin: 04/16/22 08:15 Dose: 40 mg Documented By: ANA MEMA Enoxaparin Sodium (Enoxaparin Sodium 40 Mg/0.4 Ml Syringe) 40 mg SUBCUT Q24H [facility] Last Admin: 04/15/22 19:16 Dose: 40 mg Documented By: ANDREI Fludrocortisone Acetate (Fludrocortisone Acetate 0.1 Mg Tablet) 0.1 mg PO DAILY [facility] Last Admin: 04/16/22 08:15 Dose: 0.1 mg Documented By: HO.COTEMA Gabapentin (Gabapentin 400 Mg Capsule) 400 mg PO QID [facility] Ibuprofen (Ibuprofen 400 Mg Tablet) 400 mg PO Q6H PRN PRN Reason: Headache Last Admin: 04/15/22 18:03 Dose: 400 mg Documented By: VIKTOR Melatonin (Melatonin 3 Mg Tablet) 6 mg PO BEDTIME PRN PRN Reason: Insomnia Last Admin: 04/11/22 00:48 Dose: 6 mg Documented By: JATINDER Midodrine (Midodrine Hcl 10 Mg Tablet) 10 mg PO BID [facility] Last Admin: 04/16/22 08:14 Dose: 10 mg Documented By: VIKTOR Multivitamins/Vitamin C (Multivitamin Tablet) 1 tab PO DAILY [facility] Last Admin: 04/16/22 08:16 Dose: 1 tab Documented By: VIKTOR Omeprazole (Omeprazole 20 Mg Capsule.Dr) 20 mg PO DAILY@0630 [facility] Last Admin: 04/16/22 05:45 Dose: 20 mg Documented By: ANDREI Ondansetron HCl (Ondansetron Hcl 4 Mg/2 Ml Vial) 4 mg IVPUSH Q8H PRN PRN Reason: Nausea and Vomiting Pharmacy Consult (Consult Rx Perform Med Rec) 1 each MISCELLANE ONCE PRN PRN Reason: Consult order Sodium Chloride (0.9 % Sodium Chloride Flush 3 Ml Syringe) 3 ml IVFLUSH QSHIFT [facility] Last Admin: 04/16/22 08:14 Dose: 3 ml Documented By: VIKTOR Sodium Chloride (Sodium Chloride Tab 1 Gm Tablet) 2 gm PO DAILY [facility] Last Admin: 04/16/22 08:15 Dose: 2 gm Documented By: VIKTOR Labs CBC & Chem 7: 04/08/22 05:38 04/08/22 05:38 Assessment and Plan (1) Orthostatic hypotension: Status: Acute Plan 56-year-old female with a pertinent history of coronary artery disease status post stent, major depressive disorder, essential hypertension, mixed hyperlipidemia, peripheral neuropathy who presents to the emergency department for evaluation of syncope. 1.Orthostatic Hypotension and postural HTN blood pressure seems flactuatin orthostasis Persistent at this time ?the midodrine adjusted to 10 mg p.o. b.i.d. and? fludrocortisone since patient is having persistent symptoms.? Continue IV fluids also. -Seen nephro with the following recommendation REC: decr Neurontin which has been assoc with [place]; use leg stockings; midridine during daytime --can incr ot 120 bid ( in am and mid-day); PT eval to help with getting uop slowly; leg compressive stoking; sleep with HOB elevaed; glass of water in am before gettig out o f bed; will consider short acting BP at bedtime to help manage nocturnal supine seere HTN She may be a candidate for northera which we can assess as outpt; consider Neuro eval to make sure not missing any other cause of [place] other than presumed d/t autonomic neurpoapthy foirm her DM hold cymbalata psych eval added -if psych med adding to orthostasis. Nephro following 2. Hypertension--Hold meds at this time, may need meds at bedtime 3. Coronary artery disease -dual antiplatelet therapy/high-intensity statin DVT prophylaxis: Lovenox 40 mg daily Do not resuscitate ongoing hospitalization need : symptomatic orthostatic hypOtension with onging work up and med adjustment Quality Stroke Does the patient have a stroke diagnosis?: No VTE Prior VTE?: No VTE Risk Level:: Medical - moderate - high VTE Device Contraindication: N/A - Device Ordered VTE Drug Contraindication: N/A - Med Ordered
--- NOTE | 2022-04-16 15:17 | PM.PNNEP ---
Subjective Subjective Date of Service: 04/16/22 Interval history: Orthostatic tried to come off gabapentin, but neuropathy too painful Cymbalta weaning off daily stopping IVF Physical Exam Vital Signs: Vital Signs: Last Vital Signs Temp 98.3 F 04/16/22 14:55 Pulse 69 04/16/22 14:55 Resp 18 04/16/22 14:55 BP 137/69 04/16/22 14:55 Pulse Ox 98 04/16/22 14:55 O2 Del Method 04/16/22 14:55 O2 Flow Rate 98 04/04/22 22:38 BMI result Body Mass Index 29.3 Const: Other: General: AO X 3, no acute distress Resp: CTA bilateral CVS: S1,S2,RRR GI: +BS, NT, no distention Skin: No rash Neuro: motor grossly intact Psych: appropriate affect Objective Data Labs CBC & Chem 7: 04/08/22 05:38 04/08/22 05:38 Procedures Date of Service Date of Service: 04/16/22 Assessment & Plan Assessment and plan (1) Orthostatic hypotension: Status: Acute (2) HTN (hypertension): Status: Acute (3) CAD (coronary artery disease): Status: Acute Plan 56-year-old female with a pertinent history of coronary artery disease status post stent, major depressive disorder, essential hypertension, mixed hyperlipidemia, peripheral neuropathy, with prior diabetic disease who presents to the emergency department for evaluation of syncope. 1. Orthostatic Hypotension a recent development in the last several weeks once she started Neurontin + Cymbalta. She is not sure why she is on both. SHe has had little benefit from a neuropathy standpoint with both. plan: - ok to c/w florinef and midodrine - c/w NaCl 2g daily - c/w compression socks - titrate off cymbalta - pt needs gabapentin, difficult to stop - check AM cortisol and Aldosterone Time Spent With Patient Time: Total time spent is greater than 50% in coordination of care (as documented) at patient's floor/unit and/or counseling patient: Progress Note: Quality Stroke Does the patient have a stroke diagnosis?: No
[2022-04-16] MEDS: Enoxaparin Sodium 40 MG/0.4 ML SYRINGE SUBCUT (19:53)
[2022-04-17] VITALS (8 sets, daily range): BP systolic 95–178; BP diastolic 59–92; PULSE 61–70; RESP 17–18; TEMP 36.2–36.5; O2SAT 95–99
--- NOTE | 2022-04-17 | ECG_ITS ---
Test Reason : chest soreness Blood Pressure : / mmHG Vent. Rate : 061 BPM Atrial Rate : 061 BPM P-R Int : 166 ms QRS Dur : 090 ms QT Int : 482 ms P-R-T Axes : 021 -31 010 degrees QTc Int : 485 ms Normal sinus rhythm Left axis deviation Prolonged QT Abnormal ECG When compared with ECG of 04-APR-2022 11:24, No significant change was found Heart rate has decreased Referred By: Ely Wilson Electronically Signed By:MARLENE NORRIS MD
[2022-04-17] MEDS: Omeprazole 20 MG CAPSULE.DR PO (05:20)
[2022-04-17 06:00] LABS: Anion Gap 16 (12-20); Blood Urea Nitrogen 10 mg/dL (9-16); Calcium 8.8 mg/dL (8.4-10.2); Carbon Dioxide 23 mmol/L (22-29); Chloride 105 mmol/L (96-108); Creatinine Clr Calc Pharmacy 112.3; Estimated Glomerular Filt Rate > 60; Glucose Random 111 mg/dL (60-115); Potassium 4.1 mmol/L (3.3-5.1); Sodium 140 mmol/L (135-145)
[2022-04-17 06:30] LABS: Cortisol Random 7.8 ug/dL
[2022-04-17] MEDS: DULoxetine HCl 20 MG CAPSULE.DR 40 MG PO (09:35)
[2022-04-17] MEDS: Clopidogrel Bisulfate 75 MG TABLET PO (09:35)
[2022-04-17] MEDS: Fludrocortisone Acetate 0.1 MG TABLET PO (09:36)
[2022-04-17] MEDS: Gabapentin 400 MG CAPSULE PO ×4 (09:36→19:55)
[2022-04-17] MEDS: Sodium Chloride Tab 1 GM TABLET 2 GM PO (09:36)
[2022-04-17] MEDS: Atorvastatin Calcium 80 MG TABLET PO (09:36)
[2022-04-17] MEDS: Midodrine HCl 10 MG TABLET PO ×3 (09:36→19:55)
[2022-04-17] MEDS: Aspirin Enteric Coated 81 MG TABLET.DR PO (09:36)
[2022-04-17] MEDS: Multivitamin TABLET 1 TAB PO (09:36)
[2022-04-17] MEDS: 0.9 % Sodium Chloride Flush 3 ML SYRINGE IVFLUSH ×3 (09:38→19:39)
--- NOTE | 2022-04-17 10:04 | P.PNIM_ITS ---
Subjective Subjective Date of Service: 04/17/22 Interval History: orthostasis Review of Systems seems dizziness still symptomatic due to orthostasis ?denies any chest pain or shortness of breath or abdominal pain or fever chills Physical Exam Vital Signs: Vital Signs: Last Vital Signs Temp 97.7 F 04/17/22 07:43 Pulse 70 04/17/22 08:47 Resp 18 04/17/22 07:43 BP 95/59 L 04/17/22 08:47 Pulse Ox 97 04/17/22 07:43 O2 Del Method 04/17/22 07:43 O2 Flow Rate 98 04/04/22 22:38 BMI result Body Mass Index 29.3 General: AO X 3, no acute distress Resp:? CTA bilateral CVS: S1,S2,RRR GI: +BS, NT, no distention Skin: No rash Neuro:? motor grossly intact Psych: appropriate affect Objective Data Active Medications Acetaminophen (Acetaminophen 325 Mg Tablet) 650 mg PO Q6H PRN PRN Reason: Pain, Mild (Pain Scale 1-3) Last Admin: 04/07/22 11:41 Dose: 650 mg Documented By: PANCHITO Aspirin (Aspirin Enteric Coated 81 Mg Tablet.) 81 mg PO DAILY [facility] Last Admin: 04/17/22 09:36 Dose: 81 mg Documented By: MIESHA Atorvastatin Calcium (Atorvastatin Calcium 80 Mg Tablet) 80 mg PO DAILY [facility] Last Admin: 04/17/22 09:36 Dose: 80 mg Documented By: MIESHA Clopidogrel Bisulfate (Clopidogrel Bisulfate 75 Mg Tablet) 75 mg PO DAILY [facility] Last Admin: 04/17/22 09:35 Dose: 75 mg Documented By: MIESHA Duloxetine HCl (Duloxetine Hcl 20 Mg Capsule.) 40 mg PO DAILY [facility] Last Admin: 04/17/22 09:35 Dose: 40 mg Documented By: MIESHA Enoxaparin Sodium (Enoxaparin Sodium 40 Mg/0.4 Ml Syringe) 40 mg SUBCUT Q24H [facility] Last Admin: 04/16/22 19:53 Dose: 40 mg Documented By: PAMELA Fludrocortisone Acetate (Fludrocortisone Acetate 0.1 Mg Tablet) 0.1 mg PO DAILY [facility] Last Admin: 04/17/22 09:36 Dose: 0.1 mg Documented By: MIESHA Gabapentin (Gabapentin 400 Mg Capsule) 400 mg PO QID [facility] Last Admin: 04/17/22 09:36 Dose: 400 mg Documented By: MIESHA Ibuprofen (Ibuprofen 400 Mg Tablet) 400 mg PO Q6H PRN PRN Reason: Headache Last Admin: 04/15/22 18:03 Dose: 400 mg Documented By: VIKTOR Melatonin (Melatonin 3 Mg Tablet) 6 mg PO BEDTIME PRN PRN Reason: Insomnia Last Admin: 04/11/22 00:48 Dose: 6 mg Documented By: JATINDER Midodrine (Midodrine Hcl 10 Mg Tablet) 10 mg PO BID [facility] Last Admin: 04/17/22 09:36 Dose: 10 mg Documented By: MIESHA Multivitamins/Vitamin C (Multivitamin Tablet) 1 tab PO DAILY [facility] Last Admin: 04/17/22 09:36 Dose: 1 tab Documented By: MIESHA Omeprazole (Omeprazole 20 Mg Capsule.) 20 mg PO DAILY@0630 [facility] Last Admin: 04/17/22 05:20 Dose: 20 mg Documented By: PAMELA Ondansetron HCl (Ondansetron Hcl 4 Mg/2 Ml Vial) 4 mg IVPUSH Q8H PRN PRN Reason: Nausea and Vomiting Pharmacy Consult (Consult Rx Perform Med Rec) 1 each MISCELLANE ONCE PRN PRN Reason: Consult order Sodium Chloride (0.9 % Sodium Chloride Flush 3 Ml Syringe) 3 ml IVFLUSH QSHIFT [facility] Last Admin: 04/17/22 09:38 Dose: 3 ml Documented By: MIESHA Sodium Chloride (Sodium Chloride Tab 1 Gm Tablet) 2 gm PO DAILY [facility] Last Admin: 04/17/22 09:36 Dose: 2 gm Documented By: MIESHA Labs CBC & Chem 7: 04/08/22 05:38 04/17/22 05:06 Labs: Laboratory Results - last 24 hr 04/17/22 04/17/22 05:06 05:06 Anion Gap 16 Estim Creat Clear Calc 112.3 Estimated GFR > 60 Random Glucose 111 Calcium 8.8 Random Cortisol 7.8 Assessment and Plan (1) Orthostatic hypotension: Status: Acute Plan 56-year-old female with a pertinent history of coronary artery disease status post stent, major depressive disorder, essential hypertension, mixed hyperlipidemia, peripheral neuropathy who presents to the emergency department for evaluation of syncope. 1.Orthostatic Hypotension and postural HTN blood pressure seems flactuatin orthostasis Persistent at this time ?the midodrine adjusted to 10 mg p.o. b.i.d. and? fludrocortisone since patient is having persistent symptoms.? Continue IV fluids also. -Seen nephro with the following recommendation REC: decr Neurontin which has been assoc with [place]; use leg stockings; midridine during daytime --can incr ot 120 bid ( in am and mid-day); PT eval to help with getting uop slowly; leg compressive stoking; sleep with HOB elevaed; glass of water in am before gettig out o f bed; will consider short acting BP at bedtime to help manage nocturnal supine seere HTN She may be a candidate for northera which we can assess as outpt; consider Neuro eval to make sure not missing any other cause of [place] other than presumed d/t autonomic neurpoapthy foirm her DM psych eval added -if psych med adding to orthostasis.adjusted cymbalata.added aldosterone and cortisol levels Nephro following 2. Hypertension--Hold meds at this time, may need meds at bedtime 3. Coronary artery disease -dual antiplatelet therapy/high-intensity statin DVT prophylaxis: Lovenox 40 mg daily Do not resuscitate ongoing hospitalization need : symptomatic orthostatic hypOtension with onging work up and med adjustment Quality Stroke Does the patient have a stroke diagnosis?: No VTE Prior VTE?: No VTE Risk Level:: Medical - moderate - high VTE Device Contraindication: N/A - Device Ordered VTE Drug Contraindication: N/A - Med Ordered
[2022-04-17 10:23] LABS: Troponin-I High Sensitivity 9.2 ng/L (<3.5-17.0)
--- NOTE | 2022-04-17 12:15 | PM.PNNEP ---
Subjective Subjective Date of Service: 04/17/22 Interval history: Events noted. All recent data reviewed Physical Exam Vital Signs: Vital Signs: Last Vital Signs Temp 97.5 F 04/17/22 11:24 Pulse 62 04/17/22 11:24 Resp 18 04/17/22 11:24 BP 152/83 H 04/17/22 11:24 Pulse Ox 97 04/17/22 11:24 O2 Del Method 04/17/22 11:24 O2 Flow Rate 98 04/04/22 22:38 BMI result Body Mass Index 29.3 Const: General: no acute distress Eyes: EOM: EOMs intact bilaterally Neck: Neck: Yes supple Resp: Auscultation: diminished lung sounds Cardio: Rate: regular rate GI: Palpation (GI): Soft to palpation Neuro: General: moves all extremities Objective Data Labs CBC & Chem 7: 04/08/22 05:38 04/17/22 05:06 Labs: Laboratory Results - last 24 hr 04/17/22 04/17/22 04/17/22 05:06 05:06 09:47 Sodium 140 Potassium 4.1 Chloride 105 Carbon Dioxide 23 Anion Gap 16 BUN 10 Creatinine 0.64 Estim Creat Clear Calc 112.3 Estimated GFR > 60 Random Glucose 111 Calcium 8.8 Troponin I High Sens 9.2 Random Cortisol 7.8 Procedures Date of Service Date of Service: 04/17/22 Assessment & Plan Assessment and plan (1) Orthostatic hypotension: Status: Acute Assessment and Plan: 56-year-old female with a pertinent history of coronary artery disease status post stent, major depressive disorder, essential hypertension, mixed hyperlipidemia, peripheral neuropathy, with prior diabetic disease who presents to the emergency department for evaluation of syncope. Orthostatic Hypotension a recent development in the last several weeks once she started Neurontin + Cymbalta ok to c/w florinef and midodrine. Increase Midodrine to 10 mg tid; cortisol levels Time Spent With Patient Time: Total time spent is greater than 50% in coordination of care (as documented) at patient's floor/unit and/or counseling patient: Progress Note: Quality Stroke Does the patient have a stroke diagnosis?: No
[2022-04-17] MEDS: Amoxicillin/Potassium Clav 875 MG TABLET PO ×2 (14:38→19:56)
--- NOTE | 2022-04-17 15:15 | MHC.CM.PN ---
EMR REVIEWED, PER HOSPITALIST PT CONT'S TO HAVE ORTHOSTATIC HYPOTENSION AND NOW C/O CHEST PAIN, NO PLAN FOR D/C AT THIS TIME, CM WILL CONT TO FOLLOW D/C NEEDS.
--- NOTE | 2022-04-17 17:23 | PC.NURSE ---
LATE ENTRY Patient complained of pain at right wrist IV site. THis RN removed IV and noted purulent drainage at site. Along with erythema and edema. Dr Shankar made aware. Antibiotics ordered. New IV site placed to Left forearm
--- NOTE | 2022-04-17 17:24 | PC.NURSE ---
Patient high fall risk due to past syncopal episodes and positive orthostatics causing dizziness. However, patient refusing bed alarm and other fall risk precautions. Patient educated on importance of fall risk precautions. Patient stated she knows when she feels dizzy and will call for help when needed.
[2022-04-17] MEDS: Enoxaparin Sodium 40 MG/0.4 ML SYRINGE SUBCUT (19:39)
[2022-04-17] MEDS: Ibuprofen 400 MG TABLET PO (19:55)
[2022-04-18] VITALS (11 sets, daily range): BP systolic 72–173; BP diastolic 58–91; PULSE 58–77; RESP 16–18; TEMP 36.2–36.7; O2SAT 96–99
[2022-04-18] MEDS: Omeprazole 20 MG CAPSULE.DR PO (05:49)
[2022-04-18] MEDS: 0.9 % Sodium Chloride Flush 3 ML SYRINGE IVFLUSH ×2 (09:45→18:51)
[2022-04-18] MEDS: DULoxetine HCl 20 MG CAPSULE.DR 40 MG PO (09:45)
[2022-04-18] MEDS: Sodium Chloride Tab 1 GM TABLET 2 GM PO (09:46)
[2022-04-18] MEDS: Midodrine HCl 10 MG TABLET PO ×3 (09:46→21:41)
[2022-04-18] MEDS: Fludrocortisone Acetate 0.1 MG TABLET PO (09:46)
[2022-04-18] MEDS: Multivitamin TABLET 1 TAB PO (09:46)
[2022-04-18] MEDS: Aspirin Enteric Coated 81 MG TABLET.DR PO (09:46)
[2022-04-18] MEDS: Amoxicillin/Potassium Clav 875 MG TABLET PO ×2 (09:46→21:41)
[2022-04-18] MEDS: Clopidogrel Bisulfate 75 MG TABLET PO (09:47)
[2022-04-18] MEDS: Atorvastatin Calcium 80 MG TABLET PO (09:47)
[2022-04-18] MEDS: Gabapentin 400 MG CAPSULE PO ×4 (09:47→21:41)
--- NOTE | 2022-04-18 10:47 | PM.PNNEP ---
Subjective Subjective Date of Service: 04/18/22 Interval history: Events noted. All recent data reviewed Physical Exam Vital Signs: Vital Signs: Last Vital Signs Temp 98.1 F 04/18/22 07:36 Pulse 75 04/18/22 07:42 Resp 18 04/18/22 07:42 BP 94/63 04/18/22 07:42 Pulse Ox 98 04/18/22 07:36 O2 Del Method 04/18/22 07:36 O2 Flow Rate 98 04/04/22 22:38 BMI result Body Mass Index 29.3 Const: General: no acute distress Neck: Neck: Yes supple Resp: Auscultation: diminished lung sounds Cardio: Rate: regular rate GI: Palpation (GI): Soft to palpation Neuro: General: moves all extremities Objective Data Labs CBC & Chem 7: 04/08/22 05:38 04/17/22 05:06 Procedures Date of Service Date of Service: 04/18/22 Assessment & Plan Assessment and plan (1) Orthostatic hypotension: Status: Acute Assessment and Plan: 56-year-old female with a pertinent history of coronary artery disease status post stent, major depressive disorder, essential hypertension, mixed hyperlipidemia, peripheral neuropathy, with prior diabetic disease who presents to the emergency department for evaluation of syncope. Orthostatic Hypotension a recent development in the last several weeks once she started Neurontin + Cymbalta ok to c/w florinef and midodrine. Increase Florinef to 0.2 mg daily Time Spent With Patient Time: Total time spent is greater than 50% in coordination of care (as documented) at patient's floor/unit and/or counseling patient: Progress Note: Quality Stroke Does the patient have a stroke diagnosis?: No
--- NOTE | 2022-04-18 11:03 | P.PNIM_ITS ---
Subjective Subjective Date of Service: 04/18/22 Interval History: Seen in f/u for syncope d/t orthostatic hypotension Interval history: Persistent orthostatic hypotension that is symptomatic still but overall better Review of Systems Dizzy when up no sob Physical Exam Vital Signs: Vital Signs: Last Vital Signs Temp 98.1 F 04/18/22 07:36 Pulse 75 04/18/22 07:42 Resp 18 04/18/22 07:42 BP 94/63 04/18/22 07:42 Pulse Ox 98 04/18/22 07:36 O2 Del Method 04/18/22 07:36 O2 Flow Rate 98 04/04/22 22:38 BMI result Body Mass Index 29.3 Const: Other: General: AO X 3, no acute distress Resp: CTA bilateral CVS: S1,S2,RRR GI: +BS, NT, no distention Skin: No rash Neuro: motor grossly intact Psych: appropriate affect Objective Data Active Medications Acetaminophen (Acetaminophen 325 Mg Tablet) 650 mg PO Q6H PRN PRN Reason: Pain, Mild (Pain Scale 1-3) Last Admin: 04/07/22 11:41 Dose: 650 mg Documented By: PANCHITO Amoxicillin/Clavulanate Potassium (Amoxicillin/Potassium Clav 875 Mg Tablet) 875 mg PO BID REPLACED BY [facility] Last Admin: 04/18/22 09:46 Dose: 875 mg Documented By: LAURENT Aspirin (Aspirin Enteric Coated 81 Mg Tablet.) 81 mg PO DAILY REPLACED BY [facility] Last Admin: 04/18/22 09:46 Dose: 81 mg Documented By: LAURENT Atorvastatin Calcium (Atorvastatin Calcium 80 Mg Tablet) 80 mg PO DAILY REPLACED BY [facility] Last Admin: 04/18/22 09:47 Dose: 80 mg Documented By: LAURENT Clopidogrel Bisulfate (Clopidogrel Bisulfate 75 Mg Tablet) 75 mg PO DAILY REPLACED BY [facility] Last Admin: 04/18/22 09:47 Dose: 75 mg Documented By: LAURENT Doxycycline Hyclate (Doxycycline Hyclate 100 Mg Tablet) 100 mg PO BID REPLACED BY [facility] Last Admin: 04/18/22 09:46 Dose: 100 mg Documented By: LAURENT Duloxetine HCl (Duloxetine Hcl 20 Mg Capsule.) 40 mg PO DAILY REPLACED BY [facility] Last Admin: 04/18/22 09:45 Dose: 40 mg Documented By: LAURENT Enoxaparin Sodium (Enoxaparin Sodium 40 Mg/0.4 Ml Syringe) 40 mg SUBCUT Q24H REPLACED BY [facility] Last Admin: 04/17/22 19:39 Dose: 40 mg Documented By: JATINDER Fludrocortisone Acetate (Fludrocortisone Acetate 0.1 Mg Tablet) 0.1 mg PO DAILY REPLACED BY [facility] Last Admin: 04/18/22 09:46 Dose: 0.1 mg Documented By: LAURENT Gabapentin (Gabapentin 400 Mg Capsule) 400 mg PO QID REPLACED BY [facility] Last Admin: 04/18/22 09:47 Dose: 400 mg Documented By: LAURENT Ibuprofen (Ibuprofen 400 Mg Tablet) 400 mg PO Q6H PRN PRN Reason: Headache Last Admin: 04/17/22 19:55 Dose: 400 mg Documented By: JATINDER Melatonin (Melatonin 3 Mg Tablet) 6 mg PO BEDTIME PRN PRN Reason: Insomnia Last Admin: 04/11/22 00:48 Dose: 6 mg Documented By: JATINDER Midodrine (Midodrine Hcl 10 Mg Tablet) 10 mg PO TID REPLACED BY [facility] Last Admin: 04/18/22 09:46 Dose: 10 mg Documented By: LAURENT Multivitamins/Vitamin C (Multivitamin Tablet) 1 tab PO DAILY REPLACED BY [facility] Last Admin: 04/18/22 09:46 Dose: 1 tab Documented By: LAURENT Omeprazole (Omeprazole 20 Mg Capsule.Dr) 20 mg PO DAILY@0630 REPLACED BY [facility] Last Admin: 04/18/22 05:49 Dose: 20 mg Documented By: JATINDER Ondansetron HCl (Ondansetron Hcl 4 Mg/2 Ml Vial) 4 mg IVPUSH Q8H PRN PRN Reason: Nausea and Vomiting Pharmacy Consult (Consult Rx Perform Med Rec) 1 each MISCELLANE ONCE PRN PRN Reason: Consult order Sodium Chloride (0.9 % Sodium Chloride Flush 3 Ml Syringe) 3 ml IVFLUSH QSHIFT REPLACED BY [facility] Last Admin: 04/18/22 09:45 Dose: 3 ml Documented By: LAURENT Sodium Chloride (Sodium Chloride Tab 1 Gm Tablet) 2 gm PO DAILY REPLACED BY [facility] Last Admin: 04/18/22 09:46 Dose: 2 gm Documented By: LAURENT Labs CBC & Chem 7: 04/08/22 05:38 04/17/22 05:06 Assessment and Plan (1) Orthostatic hypotension: Status: Acute Plan 56-year-old female with a pertinent history of coronary artery disease status post stent, major depressive disorder, essential hypertension, mixed hyperlipidemia, peripheral neuropathy who presents to the emergency department for evaluation of syncope. 1.Orthostatic Hypotension (OH)--cause not clear -managed with IVF, miodorine and now florinef--increase to 0.2 continue stoking, salt -Neurontin dose reduced signficantly as potention to contribute to [place] 2. Hypertension--Hold meds at this time, may need meds at bedtime 3. Coronary artery disease -dual antiplatelet therapy/high-intensity statin DVT prophylaxis: Lovenox 40 mg daily Do not resuscitate ongoing hospitalization need : symptomatic orthostatic hypOtension with onging work up and med adjustment Quality Stroke Does the patient have a stroke diagnosis?: No VTE Prior VTE?: No VTE Risk Level:: Medical - moderate - high VTE Device Contraindication: N/A - Device Ordered VTE Drug Contraindication: N/A - Med Ordered
[2022-04-18] MEDS: ondansetron HCL 4 MG/2 ML VIAL IVPUSH (13:48)
[2022-04-18] MEDS: Enoxaparin Sodium 40 MG/0.4 ML SYRINGE SUBCUT (21:41)
[2022-04-19] VITALS (12 sets, daily range): BP systolic 81–139; BP diastolic 56–75; PULSE 60–69; RESP 18–19; TEMP 35.7–36.8; O2SAT 96–98
[2022-04-19] MEDS: 0.9 % Sodium Chloride Flush 3 ML SYRINGE IVFLUSH ×4 (01:43→19:50)
[2022-04-19] MEDS: Omeprazole 20 MG CAPSULE.DR PO (05:50)
[2022-04-19] MEDS: Multivitamin TABLET 1 TAB PO (08:35)
[2022-04-19] MEDS: Midodrine HCl 10 MG TABLET PO ×3 (08:35→19:41)
[2022-04-19] MEDS: DULoxetine HCl 20 MG CAPSULE.DR 40 MG PO (08:35)
[2022-04-19] MEDS: Amoxicillin/Potassium Clav 875 MG TABLET PO ×2 (08:35→19:41)
[2022-04-19] MEDS: Aspirin Enteric Coated 81 MG TABLET.DR PO (08:35)
[2022-04-19] MEDS: Clopidogrel Bisulfate 75 MG TABLET PO (08:36)
[2022-04-19] MEDS: Atorvastatin Calcium 80 MG TABLET PO (08:36)
[2022-04-19] MEDS: Sodium Chloride Tab 1 GM TABLET 2 GM PO (08:36)
[2022-04-19] MEDS: Gabapentin 400 MG CAPSULE PO ×4 (08:36→19:41)
[2022-04-19] MEDS: Fludrocortisone Acetate 0.1 MG TABLET PO ×2 (08:36→10:15)
--- NOTE | 2022-04-19 09:56 | P.PNIM_ITS ---
Subjective Subjective Date of Service: 04/19/22 Interval History: Seen in f/u for syncope d/t orthostatic hypotension Interval history: peristent symptoms from orthostatic BP Review of Systems Dizzy when up no sob Physical Exam Vital Signs: Vital Signs: Last Vital Signs Temp 98.3 F 04/19/22 07:18 Pulse 64 04/19/22 07:18 Resp 19 04/19/22 07:18 BP 139/72 04/19/22 07:18 Pulse Ox 97 04/19/22 07:18 O2 Del Method 04/19/22 07:18 O2 Flow Rate 98 04/04/22 22:38 BMI result Body Mass Index 29.3 Const: Other: General: AO X 3, no acute distress Resp: CTA bilateral CVS: S1,S2,RRR GI: +BS, NT, no distention Skin: No rash Neuro: motor grossly intact Psych: appropriate affect Objective Data Active Medications Acetaminophen (Acetaminophen 325 Mg Tablet) 650 mg PO Q6H PRN PRN Reason: Pain, Mild (Pain Scale 1-3) Last Admin: 04/07/22 11:41 Dose: 650 mg Documented By: PANCHITO Amoxicillin/Clavulanate Potassium (Amoxicillin/Potassium Clav 875 Mg Tablet) 875 mg PO BID [facility] Last Admin: 04/19/22 08:35 Dose: 875 mg Documented By: AB Aspirin (Aspirin Enteric Coated 81 Mg Tablet.) 81 mg PO DAILY [facility] Last Admin: 04/19/22 08:35 Dose: 81 mg Documented By: AB Atorvastatin Calcium (Atorvastatin Calcium 80 Mg Tablet) 80 mg PO DAILY [facility] Last Admin: 04/19/22 08:36 Dose: 80 mg Documented By: AB Clopidogrel Bisulfate (Clopidogrel Bisulfate 75 Mg Tablet) 75 mg PO DAILY [facility] Last Admin: 04/19/22 08:36 Dose: 75 mg Documented By: AB Doxycycline Hyclate (Doxycycline Hyclate 100 Mg Tablet) 100 mg PO BID [facility] Last Admin: 04/19/22 08:36 Dose: 100 mg Documented By: AB Duloxetine HCl (Duloxetine Hcl 20 Mg Capsule.) 40 mg PO DAILY [facility] Last Admin: 04/19/22 08:35 Dose: 40 mg Documented By: AB Enoxaparin Sodium (Enoxaparin Sodium 40 Mg/0.4 Ml Syringe) 40 mg SUBCUT Q24H [facility] Last Admin: 04/18/22 21:41 Dose: 40 mg Documented By: UNA Fludrocortisone Acetate (Fludrocortisone Acetate 0.1 Mg Tablet) 0.1 mg PO DAILY [facility] Last Admin: 04/19/22 08:36 Dose: 0.1 mg Documented By: AB Gabapentin (Gabapentin 400 Mg Capsule) 400 mg PO QID [facility] Last Admin: 04/19/22 08:36 Dose: 400 mg Documented By: AB Ibuprofen (Ibuprofen 400 Mg Tablet) 400 mg PO Q6H PRN PRN Reason: Headache Last Admin: 04/17/22 19:55 Dose: 400 mg Documented By: JATINDER Melatonin (Melatonin 3 Mg Tablet) 6 mg PO BEDTIME PRN PRN Reason: Insomnia Last Admin: 04/11/22 00:48 Dose: 6 mg Documented By: JATINDER Midodrine (Midodrine Hcl 10 Mg Tablet) 10 mg PO TID [facility] Last Admin: 04/19/22 08:35 Dose: 10 mg Documented By: AB Multivitamins/Vitamin C (Multivitamin Tablet) 1 tab PO DAILY [facility] Last Admin: 04/19/22 08:35 Dose: 1 tab Documented By: AB Omeprazole (Omeprazole 20 Mg Capsule.Dr) 20 mg PO DAILY@0630 [facility] Last Admin: 04/19/22 05:50 Dose: 20 mg Documented By: URIEL Ondansetron HCl (Ondansetron Hcl 4 Mg/2 Ml Vial) 4 mg IVPUSH Q8H PRN PRN Reason: Nausea and Vomiting Last Admin: 04/18/22 13:48 Dose: 4 mg Documented By: LUARENT Pharmacy Consult (Consult Rx Perform Med Rec) 1 each MISCELLANE ONCE PRN PRN Reason: Consult order Sodium Chloride (0.9 % Sodium Chloride Flush 3 Ml Syringe) 3 ml IVFLUSH QSHIFT [facility] Last Admin: 04/19/22 08:36 Dose: 3 ml Documented By: AB Sodium Chloride (Sodium Chloride Tab 1 Gm Tablet) 2 gm PO DAILY [facility] Last Admin: 04/19/22 08:36 Dose: 2 gm Documented By: AB Labs CBC & Chem 7: 04/08/22 05:38 04/17/22 05:06 Assessment and Plan (1) Orthostatic hypotension: Status: Acute Plan 56-year-old female with a pertinent history of coronary artery disease status post stent, major depressive disorder, essential hypertension, mixed hyperlipidemia, peripheral neuropathy who presents to the emergency department for evaluation of syncope. 1.Orthostatic Hypotension (OH)--cause not clear -managed with IVF, miodorine 10 tid and now florinef--increased to 0.2 continue stoking, salt -Neurontin dose reduced signficantly as potention to contribute to [place] 2. Hypertension--Hold meds at this time, may need meds at bedtime 3. Coronary artery disease -dual antiplatelet therapy/high-intensity statin DVT prophylaxis: Lovenox 40 mg daily Do not resuscitate ongoing hospitalization need : symptomatic orthostatic hypOtension with onging work up and med adjustment Quality Stroke Does the patient have a stroke diagnosis?: No VTE Prior VTE?: No VTE Risk Level:: Medical - moderate - high VTE Device Contraindication: N/A - Device Ordered VTE Drug Contraindication: N/A - Med Ordered
--- NOTE | 2022-04-19 12:50 | MHC.CM.PN ---
PER HOSPITALIST PT CLEARED FOR D/C, CM MET W/PT WHO REPORTS SHE STILL WANTS STR AND IS AFRAID OF PASSING OUT AT HOME SHE LIVES ALONE, PT NOTIFIED PT WILL RECONSULTED AND THEY HAVE ASKED FOR ACUTE REHAB FOR PT, OT EVAL REQUESTED FROM HOSPITALIST.
[2022-04-19] MEDS: Enoxaparin Sodium 40 MG/0.4 ML SYRINGE SUBCUT (19:41)
[2022-04-20] VITALS (7 sets, daily range): BP systolic 97–186; BP diastolic 64–106; PULSE 65–76; RESP 16–18; TEMP 36.1–36.8; O2SAT 97–98
[2022-04-20] MEDS: Omeprazole 20 MG CAPSULE.DR PO (05:28)
[2022-04-20] MEDS: DULoxetine HCl 20 MG CAPSULE.DR 40 MG PO (08:01)
[2022-04-20] MEDS: Fludrocortisone Acetate 0.1 MG TABLET 0.2 MG PO (08:02)
[2022-04-20] MEDS: Amoxicillin/Potassium Clav 875 MG TABLET PO ×2 (08:05→20:11)
[2022-04-20] MEDS: Clopidogrel Bisulfate 75 MG TABLET PO (08:05)
[2022-04-20] MEDS: Gabapentin 400 MG CAPSULE PO ×4 (08:06→20:11)
[2022-04-20] MEDS: Multivitamin TABLET 1 TAB PO (08:06)
[2022-04-20] MEDS: Atorvastatin Calcium 80 MG TABLET PO (08:06)
[2022-04-20] MEDS: Aspirin Enteric Coated 81 MG TABLET.DR PO (08:06)
[2022-04-20] MEDS: 0.9 % Sodium Chloride Flush 3 ML SYRINGE IVFLUSH ×3 (08:06→21:29)
[2022-04-20] MEDS: Sodium Chloride Tab 1 GM TABLET 2 GM PO (09:34)
--- NOTE | 2022-04-20 10:04 | P.PNNP_ITS ---
Subjective Subjective Date of Service: 04/20/22 Interval history: Events noted. Seen AM. All recent data reviewed Physical Exam Vital Signs: Vital Signs: Last Vital Signs Temp 97.4 F 04/20/22 07:07 Pulse 76 04/20/22 07:55 Resp 16 04/20/22 07:07 BP 131/89 04/20/22 07:55 Pulse Ox 97 04/20/22 07:07 O2 Del Method 04/20/22 07:07 O2 Flow Rate 98 04/04/22 22:38 BMI result Body Mass Index 29.3 Const: General: no acute distress Orientation/consciousness: patient or iented x3 Eyes: EOM: EOMs intact bilaterally Neck: Neck: Yes supple Resp: Auscultation: diminished lung sounds Cardio: Rate: regular rate GI: Palpation (GI): Soft to palpation Neuro: General: patient oriented x3 Objective Data Labs CBC & Chem 7: 04/08/22 05:38 04/17/22 05:06 Procedures Date of Service Date of Service: 04/20/22 Assessment & Plan Assessment and plan (1) Orthostatic hypotension: Status: Acute Assessment and Plan: 56-year-old female with a pertinent history of coronary artery disease status post stent, major depressive disorder, essential hypertension, mixed hyperlipidemia, peripheral neuropathy, with prior diabetic disease who presents to the emergency department for evaluation of syncope. Orthostatic Hypotension a recent development in the last several weeks ( ? after she started Neurontin + Cymbalta ) ok to c/w florinef and midodrine. MARGO stockings. ? Baroreceptor issue- ? Cards consult Time Spent With Patient Time: Total time spent is greater than 50% in coordination of care (as documented) at patient's floor/unit and/or counseling patient: Progress Note: Quality Stroke Does the patient have a stroke diagnosis?: No
--- NOTE | 2022-04-20 10:05 | HO.PM.IMPN ---
Subjective Subjective Date of Service: 04/20/22 Interval History: Seen in f/u for syncope d/t orthostatic hypotension Interval history: Her blood pressure is still droping signficantly upon standing with associated dizziness Review of Systems Dizzy when up no sob Physical Exam Vital Signs: Vital Signs: Last Vital Signs Temp 97.4 F 04/20/22 07:07 Pulse 76 04/20/22 07:55 Resp 16 04/20/22 07:07 BP 131/89 04/20/22 07:55 Pulse Ox 97 04/20/22 07:07 O2 Del Method 04/20/22 07:07 O2 Flow Rate 98 04/04/22 22:38 BMI result Body Mass Index 29.3 Const: Other: General: AO X 3, no acute distress Resp: CTA bilateral CVS: S1,S2,RRR GI: +BS, NT, no distention Skin: No rash Neuro: motor grossly intact Psych: appropriate affect Objective Data Active Medications Acetaminophen (Acetaminophen 325 Mg Tablet) 650 mg PO Q6H PRN PRN Reason: Pain, Mild (Pain Scale 1-3) Last Admin: 04/07/22 11:41 Dose: 650 mg Documented By: PANCHITO Amoxicillin/Clavulanate Potassium (Amoxicillin/Potassium Clav 875 Mg Tablet) 875 mg PO BID [facility] Last Admin: 04/20/22 08:05 Dose: 875 mg Documented By: JUAN PABLO Aspirin (Aspirin Enteric Coated 81 Mg Tablet.) 81 mg PO DAILY [facility] Last Admin: 04/20/22 08:06 Dose: 81 mg Documented By: JUAN PABLO Atorvastatin Calcium (Atorvastatin Calcium 80 Mg Tablet) 80 mg PO DAILY [facility] Last Admin: 04/20/22 08:06 Dose: 80 mg Documented By: JUAN PABLO Clopidogrel Bisulfate (Clopidogrel Bisulfate 75 Mg Tablet) 75 mg PO DAILY [facility] Last Admin: 04/20/22 08:05 Dose: 75 mg Documented By: JUAN PABLO Doxycycline Hyclate (Doxycycline Hyclate 100 Mg Tablet) 100 mg PO BID [facility] Last Admin: 04/20/22 08:05 Dose: 100 mg Documented By: JUAN PABLO Duloxetine HCl (Duloxetine Hcl 20 Mg Capsule.) 40 mg PO DAILY [facility] Last Admin: 04/20/22 08:01 Dose: 40 mg Documented By: JUAN PABLO Enoxaparin Sodium (Enoxaparin Sodium 40 Mg/0.4 Ml Syringe) 40 mg SUBCUT Q24H [facility] Last Admin: 04/19/22 19:41 Dose: 40 mg Documented By: ANSELMO Fludrocortisone Acetate (Fludrocortisone Acetate 0.1 Mg Tablet) 0.2 mg PO DAILY [facility] Last Admin: 04/20/22 08:02 Dose: 0.2 mg Documented By: JUAN PABLO Gabapentin (Gabapentin 400 Mg Capsule) 400 mg PO QID [facility] Last Admin: 04/20/22 08:06 Dose: 400 mg Documented By: JUAN PABLO Ibuprofen (Ibuprofen 400 Mg Tablet) 400 mg PO Q6H PRN PRN Reason: Headache Last Admin: 04/17/22 19:55 Dose: 400 mg Documented By: JATINDER Melatonin (Melatonin 3 Mg Tablet) 6 mg PO BEDTIME PRN PRN Reason: Insomnia Last Admin: 04/11/22 00:48 Dose: 6 mg Documented By: JATINDER Midodrine (Midodrine Hcl 10 Mg Tablet) 10 mg PO TID [facility] Last Admin: 04/20/22 08:07 Dose: Not Given Documented By: JUAN PABLO Non-Admin Reason: Elevated Blood Pressure Multivitamins/Vitamin C (Multivitamin Tablet) 1 tab PO DAILY [facility] Last Admin: 04/20/22 08:06 Dose: 1 tab Documented By: JUAN PABLO Omeprazole (Omeprazole 20 Mg Capsule.Dr) 20 mg PO DAILY@0630 [facility] Last Admin: 04/20/22 05:28 Dose: 20 mg Documented By: ANSELMO Ondansetron HCl (Ondansetron Hcl 4 Mg/2 Ml Vial) 4 mg IVPUSH Q8H PRN PRN Reason: Nausea and Vomiting Last Admin: 04/18/22 13:48 Dose: 4 mg Documented By: LAURENT Pharmacy Consult (Consult Rx Perform Med Rec) 1 each MISCELLANE ONCE PRN PRN Reason: Consult order Sodium Chloride (0.9 % Sodium Chloride Flush 3 Ml Syringe) 3 ml IVFLUSH QSHIFT [facility] Last Admin: 04/20/22 08:06 Dose: 3 ml Documented By: JUAN PABLO Sodium Chloride (Sodium Chloride Tab 1 Gm Tablet) 2 gm PO DAILY [facility] Last Admin: 04/20/22 09:34 Dose: 2 gm Documented By: HO.LYSZ Labs CBC & Chem 7: 04/08/22 05:38 04/17/22 05:06 Assessment and Plan (1) Orthostatic hypotension: Status: Acute Plan 56-year-old female with a pertinent history of coronary artery disease status post stent, major depressive disorder, essential hypertension, mixed hyperlipidemia, peripheral neuropathy who presents to the emergency department for evaluation of syncope. 1.Orthostatic Hypotension (OH)--cause not clear -managed with IVF, miodorine 10 tid and now florinef--increased to 0.2 continue stoking, salt -Neurontin dose reduced signficantly as potention to contribute to [place] -salt tabs 2. Hypertension--Hold meds at this time, may need meds at bedtime 3. Coronary artery disease -dual antiplatelet therapy/high-intensity statin DVT prophylaxis: Lovenox 40 mg daily Do not resuscitate ongoing hospitalization need : symptomatic orthostatic hypOtension with onging work up and med adjustment Ultimately to short term rehab Quality Stroke Does the patient have a stroke diagnosis?: No VTE Prior VTE?: No VTE Risk Level:: Medical - moderate - high VTE Device Contraindication: N/A - Device Ordered VTE Drug Contraindication: N/A - Med Ordered
[2022-04-20] MEDS: Enoxaparin Sodium 40 MG/0.4 ML SYRINGE SUBCUT (20:12)
--- NOTE | 2022-04-20 21:22 | PC.NURSE ---
PT Héctor held due to BP 137/75, [facility] notified.
[2022-04-20] MEDS: Midodrine HCl 10 MG TABLET PO (21:29)
--- NOTE | 2022-04-20 21:30 | PC.NURSE ---
[facility] advised to give PT Midodrine with current BP of 137/75, PT took med.
--- NOTE | 2022-04-20 22:29 | PC.NURSE ---
Addendum entered by Zayra Burton RN 04/20/22 22:30: PT has history of orthostatic hypotension. Original Note: PT refusing bed alarm, education provided, PT has hx of falls and hypotension.
[2022-04-21] VITALS (10 sets, daily range): BP systolic 65–141; BP diastolic 51–81; PULSE 67–81; RESP 16–20; TEMP 36.2–36.9; O2SAT 97–99
--- NOTE | 2022-04-21 04:26 | PC.NURSE ---
PT refusing to be woken up for 4am [facility] notified.
[2022-04-21] MEDS: Omeprazole 20 MG CAPSULE.DR PO (05:41)
--- NOTE | 2022-04-21 08:30 | PC.NURSE ---
Pt orthostatic vitals supine 141/81, sitting 95/72, standing 65/57. Dr Castro notified. Dr Castro stated to hold cymbalata, and give Midodrine.
[2022-04-21] MEDS: Midodrine HCl 10 MG TABLET PO ×3 (08:47→20:00)
[2022-04-21] MEDS: Gabapentin 400 MG CAPSULE PO (08:47)
[2022-04-21] MEDS: Fludrocortisone Acetate 0.1 MG TABLET 0.2 MG PO (08:47)
[2022-04-21] MEDS: Amoxicillin/Potassium Clav 875 MG TABLET PO (08:47)
[2022-04-21] MEDS: Multivitamin TABLET 1 TAB PO (08:47)
[2022-04-21] MEDS: Clopidogrel Bisulfate 75 MG TABLET PO (08:47)
[2022-04-21] MEDS: Aspirin Enteric Coated 81 MG TABLET.DR PO (08:47)
[2022-04-21] MEDS: Sodium Chloride Tab 1 GM TABLET 2 GM PO (08:47)
[2022-04-21] MEDS: Atorvastatin Calcium 80 MG TABLET PO (08:47)
[2022-04-21] MEDS: 0.9 % Sodium Chloride Flush 3 ML SYRINGE IVFLUSH ×3 (08:47→20:00)
--- NOTE | 2022-04-21 09:25 | PM.PNNEP ---
Subjective Subjective Date of Service: 04/21/22 Interval history: Events noted. All recent data reviewed; D/W Med Attending Physical Exam Vital Signs: Vital Signs: Last Vital Signs Temp 97.7 F 04/20/22 23:49 Pulse 81 04/21/22 07:47 Resp 18 04/20/22 23:49 BP 65/57 L 04/21/22 07:47 Pulse Ox 97 04/20/22 23:49 O2 Del Method 04/20/22 23:49 O2 Flow Rate 98 04/04/22 22:38 BMI result Body Mass Index 29.3 Const: General: no acute distress Orientation/consciousness: patient oriented x3 Eyes: EOM: EOMs intact bilaterally Neck: Neck: Yes supple Resp: Auscultation: diminished lung sounds Cardio: Rate: regular rate GI: Palpation (GI): Soft to palpation Neuro: General: patient oriented x3 Objective Data Labs CBC & Chem 7: 04/08/22 05:38 04/17/22 05:06 Procedures Date of Service Date of Service: 04/21/22 Assessment & Plan Assessment and plan (1) Orthostatic hypotension: Status: Acute Assessment and Plan: 56-year-old female with a pertinent history of coronary artery disease status post stent, major depressive disorder, essential hypertension, mixed hyperlipidemia, peripheral neuropathy, with prior diabetic disease who presents to the emergency department for evaluation of syncope. Orthostatic Hypotension a recent development in the last several weeks ( ? after she started Neurontin + Cymbalta ) ok to c/w florinef and midodrine. MARGO stockings. D/C gabapentin/cymbalta; Needs ECHO to R/O pericardial effusion ? Baroreceptor issue- Needs Cards consult Time Spent With Patient Time: Total time spent is greater than 50% in coordination of care (as documented) at patient's floor/unit and/or counseling patient: Progress Note: Quality Stroke Does the patient have a stroke diagnosis?: No
--- NOTE | 2022-04-21 11:27 | P.PNIM_ITS ---
Subjective Subjective Date of Service: 04/21/22 Interval History: f/u orthostatic hypotension peristent ortho hypotension with dizziness Review of Systems Dizzy when up no sob Physical Exam Vital Signs: Vital Signs: Last Vital Signs Temp 97.7 F 04/20/22 23:49 Pulse 81 04/21/22 11:01 Resp 18 04/20/22 23:49 BP 65/57 L 04/21/22 11:01 Pulse Ox 97 04/20/22 23:49 O2 Del Method 04/20/22 23:49 O2 Flow Rate 98 04/04/22 22:38 BMI result Body Mass Index 29.3 Const: Other: General: AO X 3, no acute distress Resp: CTA bilateral CVS: S1,S2,RRR GI: +BS, NT, no distention Skin: No rash Neuro: motor grossly intact Psych: appropriate affect Objective Data Active Medications Acetaminophen (Acetaminophen 325 Mg Tablet) 650 mg PO Q6H PRN PRN Reason: Pain, Mild (Pain Scale 1-3) Last Admin: 04/07/22 11:41 Dose: 650 mg Documented By: PANCHITO Amoxicillin/Clavulanate Potassium (Amoxicillin/Potassium Clav 875 Mg Tablet) 875 mg PO BID [facility] [place] Last Admin: 04/21/22 08:47 Dose: 875 mg Documented By: MARLENY Aspirin (Aspirin Enteric Coated 81 Mg Tablet.) 81 mg PO DAILY [facility] [place] Last Admin: 04/21/22 08:47 Dose: 81 mg Documented By: MARLENY Atorvastatin Calcium (Atorvastatin Calcium 80 Mg Tablet) 80 mg PO DAILY [facility] [place] Last Admin: 04/21/22 08:47 Dose: 80 mg Documented By: MARLENY Clopidogrel Bisulfate (Clopidogrel Bisulfate 75 Mg Tablet) 75 mg PO DAILY [facility] [place] Last Admin: 04/21/22 08:47 Dose: 75 mg Documented By: MARLENY Doxycycline Hyclate (Doxycycline Hyclate 100 Mg Tablet) 100 mg PO BID [facility] [place] Last Admin: 04/21/22 08:47 Dose: 100 mg Documented By: MARLENY Duloxetine HCl (Duloxetine Hcl 20 Mg Capsule.) 40 mg PO DAILY [facility] [place] Last Admin: 04/21/22 08:35 Dose: Not Given Documented By: MARLENY Non-Admin Reason: Physician Held Med Enoxaparin Sodium (Enoxaparin Sodium 40 Mg/0.4 Ml Syringe) 40 mg SUBCUT Q24H [facility] Last Admin: 04/20/22 20:12 Dose: 40 mg Documented By: MALGORZATA Fludrocortisone Acetate (Fludrocortisone Acetate 0.1 Mg Tablet) 0.2 mg PO DAILY [facility] [place] Last Admin: 04/21/22 08:47 Dose: 0.2 mg Documented By: MARLENY Gabapentin (Gabapentin 400 Mg Capsule) 400 mg PO QID [facility] [place] Last Admin: 04/21/22 08:47 Dose: 400 mg Documented By: MARLENY Ibuprofen (Ibuprofen 400 Mg Tablet) 400 mg PO Q6H PRN PRN Reason: Headache Last Admin: 04/17/22 19:55 Dose: 400 mg Documented By: JATNIDER Melatonin (Melatonin 3 Mg Tablet) 6 mg PO BEDTIME PRN PRN Reason: Insomnia Last Admin: 04/11/22 00:48 Dose: 6 mg Documented By: JATINDER Midodrine (Midodrine Hcl 10 Mg Tablet) 10 mg PO TID [facility] [place] Last Admin: 04/21/22 08:47 Dose: 10 mg Documented By: MARLENY Multivitamins/Vitamin C (Multivitamin Tablet) 1 tab PO DAILY [facility] [place] Last Admin: 04/21/22 08:47 Dose: 1 tab Documented By: MARLENY Omeprazole (Omeprazole 20 Mg Capsule.) 20 mg PO DAILY@0630 [facility] [place] Last Admin: 04/21/22 05:41 Dose: 20 mg Documented By: MALGORZATA Ondansetron HCl (Ondansetron Hcl 4 Mg/2 Ml Vial) 4 mg IVPUSH Q8H PRN PRN Reason: Nausea and Vomiting Last Admin: 04/18/22 13:48 Dose: 4 mg Documented By: LAURENT Pharmacy Consult (Consult Rx Perform Med Rec) 1 each MISCELLANE ONCE PRN PRN Reason: Consult order Sodium Chloride (0.9 % Sodium Chloride Flush 3 Ml Sy[facility]) [facility] Last Admin: 04/21/22 08:47 Dose: 3 ml Documented By: MARLENY Sodium Chloride (Sodium Chloride Tab 1 Gm Tablet) 2 gm PO DAILY [facility] [place] Last Admin: 04/21/22 08:47 Dose: 2 gm Documented By: MARLENY Labs CBC & Chem 7: 04/08/22 05:38 04/17/22 05:06 Assessment and Plan (1) Orthostatic hypotension: Status: Acute Assessment and Plan: 56-year-old female with a pertinent history of coronary artery disease status post stent, major depressive disorder, essential hypertension, mixed hyperlipidemia, peripheral neuropathy, with prior diabetic disease who presents to the emergency department for evaluation of syncope. Orthostatic Hypotension a recent development in the last several weeks ( ? after she started Neurontin + Cymbalta ) ok to c/w florinef and midodrine. MARGO stockings. D/C gabapentin/cymbalta; Needs ECHO to R/O pericardial effusion ? Baroreceptor issue- Needs Cards consult Plan 56-year-old female with a pertinent history of coronary artery disease status post stent, major depressive disorder, essential hypertension, mixed hyperlipidemia, peripheral neuropathy who presents to the emergency department for evaluation of syncope. 1.Orthostatic Hypotension (OH)--persistent standing this morning with diz ziness -managed with IVF, miodorine 10 tid and now florinef 0.2 continue stocking, salt -Neurontin dose reduced signficantly more as potention to contribute to OH, stob cympalta has potential to cause orthostatic as well 2. Hypertension--Hold meds at this time, may need meds at bedtime 3. Coronary artery disease -dual antiplatelet therapy/high-intensity statin DVT prophylaxis: Lovenox 40 mg daily Do not resuscitate ongoing hospitalization need : symptomatic orthostatic hypOtension with onging work up and med adjustment Ultimately to short term rehab when BP are better Quality Stroke Does the patient have a stroke diagnosis?: No VTE Prior VTE?: No VTE Risk Level:: Medical - moderate - high VTE Device Contraindication: N/A - Device Ordered VTE Drug Contraindication: N/A - Med Ordered
--- NOTE | 2022-04-21 13:57 | MHC.CM.PN ---
EMR REVIEWED, PT REMAINS ORTHOSTATIC AND BP DROPPING SIGNIFICANTLY, PER HOSPIATLIST MEDS TO BE ADJUSTED AGAIN AND ANTIC D/C NEXT WEEK TO ACUTE VS STR. CM WILL CONT TO FOLLOW D/C NEEDS.
[2022-04-21] MEDS: Gabapentin 100 MG CAPSULE 200 MG PO ×3 (14:06→20:00)
[2022-04-21] MEDS: Enoxaparin Sodium 40 MG/0.4 ML SYRINGE SUBCUT (19:51)
[2022-04-21] MEDS: Doxycycline Monohydrate 100 MG CAPSULE PO (20:00)
[2022-04-22] VITALS (14 sets, daily range): BP systolic 68–136; BP diastolic 47–76; PULSE 60–90; RESP 17–20; TEMP 36.1–37; O2SAT 95–100
--- NOTE | 2022-04-22 04:26 | PC.NURSE ---
Ortho static BPs reported to MD House 121/66 lying, sitting 88/54, standing 74/47.
[2022-04-22] MEDS: Omeprazole 20 MG CAPSULE.DR PO (05:57)
--- NOTE | 2022-04-22 06:00 | PC.NURSE ---
PT refusing bed alarm, PT educated on low BP and syncope.
--- NOTE | 2022-04-22 09:47 | CA_ITS ---
Transthoracic Echocardiogram Patient (Last, First, Middle): Evon Greer A Gender: Female Date of : 1965 Age: 56 Procedure Date: 04/22/2022 Procedure Type: Transthoracic Echocardiogram Location: S3W Height: 172.72 cm Weight: 87.54 kg BSA: 2.01 m2 Heart Rate: bpm BP: 125 / 76 mmHg Plane Runner: TO Referring MD: Shemar Castro MD Symptoms: orthostatic hypotension Study Quality: Adequate Conclusions: - Normal left ventricular size and systolic function. There is mildly increased left ventricular wall thickness. The visually estimated ejection fraction is between 55-60%. - Elevated filling pressures. - Normal right ventricular cavity size and systolic function. - There is mild aortic valve stenosis. Findings Left Ventricle Normal left ventricular size and systolic function. There is mildly increased left ventricular wall thickness. The visually estimated ejection fraction is between 55-60%. There is no evidence of regional wall motion abnormalities. Abnormal diastolic function is noted. Spectral Doppler is indicative of a pseudonormal filling pattern. Elevated filling pressures. Right Ventricle Normal right ventricular cavity size and systolic function. Atria The left atrium is mildly dilated. Aortic Valve There is a normal trileaflet aortic valve. There is mild calcification of the aortic valve. There is mild aortic valve stenosis. The peak aortic velocity is 2.16 m/s. The aortic valve area is 1.31 cm2. There is no aortic valve regurgitation. Mitral Valve There is moderate mitral annular calcification. There is trace mitral valve regurgitation. There is no mitral valve stenosis. Pulmonic Valve Normal pulmonic valve structure and function. There is trace pulmonic valve regurgitation. Tricuspid Valve Normal tricuspid valve structure. There is trace tricuspid valve regurgitation. Normal right atrial pressure. There is no evidence of pulmonary hypertension. Great Vessels All visible segments of the aorta are normal in size. The visualized portions of the pulmonary artery and branches are normal. Venous The inferior vena cava is normal in size and collapses greater than 50% with inspiration. Pericardium/Pleural Prominent epicardial adipose tissue noted. There is no evidence of pericardial effusion. Prior Study Comparison No change compared to prior study dated: 01/19/2020. Measurements 2D Linear Measurements IVSd: 1.15 0.6-0.9/0.6-1.0 cm LVIDd: 5.08 3.9-5.3/4.2-5.9 cm LVIDd Index: 2.53 2.4-3.2/2.2-3.1 cm/m2 LVPWd: 1.11 0.7-1.1 cm LV Mass: 274.92 67-162/88-224 g LV Mass Index: 136.78 43-95/49-115 g/m2 LVOT Diam: 2.10 3.0+(-)1.3 cm 2D Systolic Function EF 4C: 46.10 >55% EF 2C: 51.50 >55% EF BiP: 50.60 >55% Mitral Valve MV Pk E: 0.95 MV PK A: 0.87 MV Decel Time: 228.00 E/A: 1.10 E'Lateral: 7.07 E'Medial: 5.66 E/E' Med: 16.80 E/E' Lat: 13.50 PHT: 67.00 MVA PHT: 3.28 Decel [place]: 4.16 Aortic Valve AoV Pk Errol: 2.16 AoV Mn Errol: 1.57 AoV VTI: 0.48 AoV Pk Grad: 19.00 Aov Mn Grad: 11.00 LOIS Cont.VTI: 1.31 LVOT LVOT Pk Errol: 0.78 LVOT Mn Errol: 0.49 LVOT VTI: 0.18 LVOT Pk Grad: 2.00 LVOT Mn Grad: 1.00 LVOT Diam: 2.10 LVOT Area: 3.46 Diastolic Function MV Pk E: 0.95 MV Pk A: 0.87 E/A: 1.10 E'Medial: 5.66 E/E' Med: 16.80 E' Laterial: 7.07 E/E' Lat: 13.50 Right Ventricle TAPSE (mm): 21.30 TVS' Errol: 12.10 Tricuspid Valve TR Pk Errol: 2.19 TR Pk Grad: 19.00 RA Press: 3.00 RVSP: 22.00 Great Vessels Aorta Sinus of Valsalva: 3.34 2.0-3.[address] [place]: 2.28 1.7-3.4 cm Ao Asc: 3.30 2.1-3.4 cm Updated in Other Vendor System with Status of Final John Goodson MD electronically signed on 04/22/2022 4:57:45 PM with status of Final
[2022-04-22] MEDS: Gabapentin 400 MG CAPSULE PO ×2 (09:54→10:07)
--- NOTE | 2022-04-22 10:00 | PC.NURSE ---
Addendum entered by Alexandra Davis RN 04/22/22 10:28: Security called to unit due to pt yelling in hallways. Nursing Harmonic Analyst aware of situation. Pt returned to room. Pt is currently calm. Original Note: Gabapentin 400mg given unscheduled per Dr Castro. Pt attempting to leave AMA. Yelling in hallways at Dr Castro. Was able to redirect pt back into room to talk with MD about leaving AMA.
--- NOTE | 2022-04-22 10:00 | HO.PM.IMPN ---
Subjective Subjective Date of Service: 04/22/22 Interval History: f/u orthostatic hypotension Persistent orthostatic hypotension, upset this morning about not getting her neurontin and also dose being reduced and threatening to leave AMA Review of Systems Dizzy when up no sob Physical Exam Vital Signs: Vital Signs: Last Vital Signs Temp 98.2 F 04/22/22 07:46 Pulse 78 04/22/22 08:15 Resp 18 04/22/22 07:46 BP 124/70 04/22/22 08:15 Pulse Ox 95 04/22/22 07:46 O2 Del Method 04/22/22 07:46 O2 Flow Rate 98 04/04/22 22:38 BMI result Body Mass Index 29.3 Const: Other: General: AO X 3, no acute distress Resp: CTA bilateral CVS: S1,S2,RRR GI: +BS, NT, no distention Skin: No rash Neuro: motor grossly intact Psych: appropriate affect Objective Data Active Medications Acetaminophen (Acetaminophen 325 Mg Tablet) 650 mg PO Q6H PRN PRN Reason: Pain, Mild (Pain Scale 1-3) Last Admin: 04/07/22 11:41 Dose: 650 mg Documented By: PANCHITO Aspirin (Aspirin Enteric Coated 81 Mg Tablet.) 81 mg PO DAILY [facility] Last Admin: 04/21/22 08:47 Dose: 81 mg Documented By: MARLENY Atorvastatin Calcium (Atorvastatin Calcium 80 Mg Tablet) 80 mg PO DAILY [facility] Last Admin: 04/21/22 08:47 Dose: 80 mg Documented By: MARLENY Clopidogrel Bisulfate (Clopidogrel Bisulfate 75 Mg Tablet) 75 mg PO DAILY [facility] Last Admin: 04/21/22 08:47 Dose: 75 mg Documented By: MARLENY Doxycycline Monohydrate (Doxycycline Monohydrate 100 Mg Capsule) 100 mg PO BID [facility] Last Admin: 04/21/22 20:00 Dose: 100 mg Documented By: MALGORZATA Enoxaparin Sodium (Enoxaparin Sodium 40 Mg/0.4 Ml Syringe) 40 mg SUBCUT Q24H [facility] Last Admin: 04/21/22 19:51 Dose: 40 mg Documented By: MALGORZATA Fludrocortisone Acetate (Fludrocortisone Acetate 0.1 Mg Tablet) 0.2 mg PO DAILY [facility] Last Admin: 04/21/22 08:47 Dose: 0.2 mg Documented By: MARLENY Gabapentin (Gabapentin 400 Mg Capsule) 400 mg PO ONCE ONE Stop: 04/22/22 09:59 Ibuprofen (Ibuprofen 400 Mg Tablet) 400 mg PO Q6H PRN PRN Reason: Headache Last Admin: 04/17/22 19:55 Dose: 400 mg Documented By: JATINDER Melatonin (Melatonin 3 Mg Tablet) 6 mg PO BEDTIME PRN PRN Reason: Insomnia Last Admin: 04/11/22 00:48 Dose: 6 mg Documented By: JATINDER Midodrine (Midodrine Hcl 10 Mg Tablet) 10 mg PO TID [facility] Last Admin: 04/21/22 20:00 Dose: 10 mg Documented By: MALGORZATA Multivitamins/Vitamin C (Multivitamin Tablet) 1 tab PO DAILY [facility] Last Admin: 04/21/22 08:47 Dose: 1 tab Documented By: MARLENY Omeprazole (Omeprazole 20 Mg Capsule.Dr) 20 mg PO DAILY@0630 [facility] Last Admin: 04/22/22 05:57 Dose: 20 mg Documented By: MALGORZATA Ondansetron HCl (Ondansetron Hcl 4 Mg/2 Ml Vial) 4 mg IVPUSH Q8H PRN PRN Reason: Nausea and Vomiting Last Admin: 04/18/22 13:48 Dose: 4 mg Documented By: LAURENT Pharmacy Consult (Consult Rx Perform Med Rec) 1 each MISCELLANE ONCE PRN PRN Reason: Consult order Sodium Chloride (0.9 % Sodium Chloride Flush 3 Ml Syringe) 3 ml IVFLUSH QSHIFT [facility] Last Admin: 04/21/22 20:00 Dose: 3 ml Documented By: MALGORZATA Sodium Chloride (Sodium Chloride Tab 1 Gm Tablet) 2 gm PO DAILY [facility] Last Admin: 04/21/22 08:47 Dose: 2 gm Documented By: MARLENY Labs CBC & Chem 7: 04/08/22 05:38 04/17/22 05:06 Assessment and Plan (1) Orthostatic hypotension: Status: Acute Plan 56-year-old female with a pertinent history of coronary artery disease status post stent, major depressive disorder, essential hypertension, mixed hyperlipidemia, peripheral neuropathy who presents to the emergency department for evaluation of syncope. 1.Orthostatic Hypotension (OH)--persistent, standing BP still dropping stignificantly and symptomatic -thus far has been managed with IVF, Salt, Midodrine 10 tid, florinef 0.2 daily, meds reviewed Neurontin dose was reduced but didnt' have effect, Cymbalta stopped as potential for low BPs as well -Nephorlogy helping, will also get cardiology input, echo sunday. She remains unsafe at this point to leave at this point and may need to go to acute rehab 2. Hypertension--Hold meds at this time, may need meds at bedtime if supine BPs are very high 3. Coronary artery disease -dual antiplatelet therapy/high-intensity statin 4. Neuropathy--continue Neurontin at home dose DVT prophylaxis: Lovenox 40 mg daily Do not resuscitate ongoing hospitalization need : symptomatic orthostatic hypOtension with onging work up and med adjustment Ultimately to short term rehab when BP are better Quality Stroke Does the patient have a stroke diagnosis?: No VTE Prior VTE?: No VTE Risk Level:: Medical - moderate - high VTE Device Contraindication: N/A - Device Ordered VTE Drug Contraindication: N/A - Med Ordered
[2022-04-22] MEDS: Clopidogrel Bisulfate 75 MG TABLET PO (10:19)
[2022-04-22] MEDS: Atorvastatin Calcium 80 MG TABLET PO (10:19)
[2022-04-22] MEDS: Midodrine HCl 10 MG TABLET PO ×3 (10:19→21:13)
[2022-04-22] MEDS: Multivitamin TABLET 1 TAB PO (10:19)
[2022-04-22] MEDS: Fludrocortisone Acetate 0.1 MG TABLET 0.2 MG PO (10:19)
[2022-04-22] MEDS: Doxycycline Monohydrate 100 MG CAPSULE PO ×2 (10:19→21:15)
[2022-04-22] MEDS: Aspirin Enteric Coated 81 MG TABLET.DR PO (10:20)
[2022-04-22] MEDS: Sodium Chloride Tab 1 GM TABLET 2 GM PO (10:26)
--- NOTE | 2022-04-22 12:22 | P.CONCA_ITS ---
History of Present Illness History of Present Illness Date of Service: 04/22/22 Requesting physician: Shemar Castro Chief complaint: Syncope Narrative: [age] female who is here for syncope and orthostatic hypertension. I have seen Evon last time in February 2020. She was previously seen for mild cardiomyopathy and chest discomfort shortness of breath. She underwent cardiac catheterization which showed LAD stenosis which was IFR positive and treated with drug-eluting stent. After PCI her LVEF improved. She had no symptoms. She has not followed up for 2 years. She has known history of diabetes but has lost 100 lb and saying that her hemoglobin A1c has improved. She also was heavy alcohol user as of 2 years ago and was drinking vodka. She has significant peripheral neuropathy which effects her mobility. She has spent a lot of time in wheelchair but is saying that recently she has been trying to walk more. Over the last couple of weeks she started noticing dizziness and lightheadedness when she changes her posture and eventually started passing out. With these symptoms she presented to us. He was noted to have orthostatic hypotension and has being managed by Medicine and Nephrology team. She is currently getting salt tablets, midodrine 10 mg 3 times a day and fludrocortisone. She is denying any significant cardiac sounding chest pain. She fell hitting her ribs and has some pain currently but is different from her chest discomfort and shortness of breath that was happening before she had LAD PCI. [facility] Past Medical History Medical History CAD (coronary artery disease) Cardiomyopathy Depression Dyslipidemia GERD (gastroesophageal reflux disease) History of mammogram HTN (hypertension) Hyperglycemia Neuropathy Normal Pap smear Peripheral neuropathy Urinary incontinence Family History Family History Father No problems noted. Mother No problems noted. Brother No problems noted. Sister No problems noted. Sister No problems noted. Son No problems noted. Surgical History Surgical History Breast abscess CTS (carpal tunnel syndrome) H/O cardiac catheterization (~01/2020) H/O colonoscopy History of ankle surgery Social History Social History Household Members: None Housing: Apartment Do you presently have visiting nurse or other home services: Yes (do her medication) Patient Tobacco Use Status: Former Tobacco user Tobacco use type: Cigarette Cigarettes Per Day: 5 Years Smoked: 20 Smoked in Last 30 Days: Yes e-Cigarette/Vaping Use: Former Use Patient Interested in Nicotine Replacement: No (not right now) Patient Given Instructions on How to Stop Smoking: No Second Hand Smoke Exposure: No Use of substances other than those prescribed or required for medical reasons: Yes Substance Use Type: Marijuana Last Used Substance Other:: two months Currently Displaying Signs/Symptoms of Drug Intoxication Withdrawal: No Any prior treatment program specific to substance use: No Have you been hit, kicked, punched, or otherwise hurt by someone within the past year? If so, by whom?: No Do you feel safe in your current relationship?: No Current Relationship Is there a partner from a previous relationship who is making you feel unsafe now?: No Are you made to feel afraid or neglected: No Spiritual Healthcare Practices: spiritilist Advance Directives: No Do you have thoughts of harming others: None Do you have a plan to hurt others: No Plan Recently lost weight without trying: Yes How much weight loss: 24-33 pounds Eating poorly because of decreased appetite: No Nutrition screen score: 5 Nutrition Risks: No Nutritional Risk Patient : No : No Poor oral hygiene: No Current occupational status: unemployed Cognitive needs: No Hearing needs: No Vision needs: Yes Meds Allergies Allergy/AdvReac Type Severity Reaction Status Date / Time aspirin [ASPIRIN] Allergy Unknown SENSITIVITY Verified 03/01/22 09:49 lisinopril Allergy Unknown falls, Verified 03/01/22 09:49 muscle weakness Active Medications: Current Medications Acetaminophen (Acetaminophen 325 Mg Tablet) 650 mg PO Q6H PRN PRN Reason: Pain, Mild (Pain Scale 1-3) Last Admin: 04/07/22 11:41 Dose: 650 mg Aspirin (Aspirin Enteric Coated 81 Mg Tablet.) 81 mg PO DAILY [facility] Last Admin: 04/22/22 10:20 Dose: 81 mg Atorvastatin Calcium (Atorvastatin Calcium 80 Mg Tablet) 80 mg PO DAILY [facility] Last Admin: 04/22/22 10:19 Dose: 80 mg Clopidogrel Bisulfate (Clopidogrel Bisulfate 75 Mg Tablet) 75 mg PO DAILY [facility] Last Admin: 04/22/22 10:19 Dose: 75 mg Doxycycline Monohydrate (Doxycycline Monohydrate 100 Mg Capsule) 100 mg PO BID [facility] Last Admin: 04/22/22 10:19 Dose: 100 mg Enoxaparin Sodium (Enoxaparin Sodium 40 Mg/0.4 Ml Syringe) 40 mg SUBCUT Q24H [facility] Last Admin: 04/21/22 19:51 Dose: 40 mg Fludrocortisone Acetate (Fludrocortisone Acetate 0.1 Mg Tablet) 0.2 mg PO DAILY [facility] Last Admin: 04/22/22 10:19 Dose: 0.2 mg Gabapentin (Gabapentin 400 Mg Capsule) 800 mg PO QID [facility] Ibuprofen (Ibuprofen 400 Mg Tablet) 400 mg PO Q6H PRN PRN Reason: Headache Last Admin: 04/17/22 19:55 Dose: 400 mg Melatonin (Melatonin 3 Mg Tablet) 6 mg PO BEDTIME PRN PRN Reason: Insomnia Last Admin: 04/11/22 00:48 Dose: 6 mg Midodrine (Midodrine Hcl 10 Mg Tablet) 10 mg PO TID [facility] Last Admin: 04/22/22 10:19 Dose: 10 mg Multivitamins/Vitamin C (Multivitamin Tablet) 1 tab PO DAILY [facility] Last Admin: 04/22/22 10:19 Dose: 1 tab Omeprazole (Omeprazole 20 Mg Capsule.Dr) 20 mg PO DAILY@0630 [facility] Last Admin: 04/22/22 05:57 Dose: 20 mg Ondansetron HCl (Ondansetron Hcl 4 Mg/2 Ml Vial) 4 mg IVPUSH Q8H PRN PRN Reason: Nausea and Vomiting Last Admin: 04/18/22 13:48 Dose: 4 mg Pharmacy Consult (Consult Rx Perform Med Rec) 1 each MISCELLANE ONCE PRN PRN Reason: Consult order Sodium Chloride (0.9 % Sodium Chloride Flush 3 Ml Syringe) 3 ml IVFLUSH QSHIFT [facility] Last Admin: 04/22/22 10:20 Dose: Not Given Sodium Chloride (Sodium Chloride Tab 1 Gm Tablet) 2 gm PO DAILY [facility] Last Admin: 04/22/22 10:26 Dose: 2 gm Home Medications Medication Instructions Recorded Confirmed Last Taken Type [id number] 1 tab PO DAILY 03/01/22 04/05/22 Unknown History fumarate 7.5 mg-folic acid 400 mcg tablet gabapentin 400 mg capsule 800 mg PO QID 04/05/22 04/05/22 Unknown History Physical Exam Vital Signs: Vital Signs: Last Vital Signs Temp 98.6 F 04/22/22 11:49 Pulse 82 04/22/22 11:49 Resp 18 04/22/22 11:49 BP 125/76 04/22/22 11:49 Pulse Ox 95 04/22/22 11:49 O2 Del Method 04/22/22 11:49 O2 Flow Rate 98 04/04/22 22:38 BMI result Body Mass Index 29.3 GENERAL APPEARANCE: in no acute distress, pleasant. NECK: no carotid bruit, no jugular venous distention. SKIN: no suspicious lesions, warm and dry. HEART: Systolic murmur aortic area, regular rate and rhythm. LUNGS: clear to auscultation bilaterally. ABDOMEN: soft, nontender. EXTREMITIES: no edema. PERIPHERAL PULSES: equal. NEUROLOGIC: No gross deficits, AAO X 3 Objective Labs and Meds Result diagrams: 04/08/22 05:38 04/17/22 05:06 Assessment and Plan (1) Orthostatic hypotension: Status: Acute (2) CAD (coronary artery disease): Status: Acute Plan Pleasant 56-year-old female who is here for orthostatic hypotension. She had extensive workup so far by Nephrology and no obvious cause has been found. She has known history of diabetes as well as alcohol use in the past has peripheral neuropathy. Sometimes these patients developed dysautonomia which did show base in her presentation. In any case currently I am unclear about the etiology and would not label her as dysautonomia. She is on salt tabs, midodrine and fludrocortisone. Her blood pressure currently is stable. Will see how she responds to this regimen. I am adding plasma norepinephrine level. If that is elevated then we can trial atomoxetine. Will ECHO to assess for any cardiomyopathy or pericardial effusion. Thank you for allowing me to participate in the care of your patient. Please feel free to contact me if you have any questions. Procedures Date of Service Date of Service: 04/22/22
[2022-04-22] MEDS: Gabapentin 400 MG CAPSULE 800 MG PO ×3 (14:18→21:14)
--- NOTE | 2022-04-22 14:23 | PM.PNNEP ---
Subjective Subjective Date of Service: 04/22/22 Interval history: Events noted. All recent data reviewed Physical Exam Vital Signs: Vital Signs: Last Vital Signs Temp 98.6 F 04/22/22 11:49 Pulse 82 04/22/22 11:49 Resp 18 04/22/22 11:49 BP 125/76 04/22/22 11:49 Pulse Ox 95 04/22/22 11:49 O2 Del Method 04/22/22 11:49 O2 Flow Rate 98 04/04/22 22:38 BMI result Body Mass Index 29.3 Const: General: no acute distress Orientation/consciousness: patient oriented x3 Eyes: EOM: EOMs intact bilaterally Neck: Neck: Yes supple Resp: Auscultation: diminished lung sounds Cardio: Rate: regular rate GI: Palpation (GI): Soft to palpation Neuro: General: patient oriented x3 Objective Data Labs CBC & Chem 7: 04/08/22 05:38 04/17/22 05:06 Procedures Date of Service Date of Service: 04/22/22 Assessment & Plan Assessment and plan (1) Orthostatic hypotension: Status: Acute Assessment and Plan: 56-year-old female with a pertinent history of coronary artery disease status post stent, major depressive disorder, essential hypertension, mixed hyperlipidemia, peripheral neuropathy, with prior diabetic disease who presents to the emergency department for evaluation of syncope. Orthostatic Hypotension a recent development in the last several weeks ( ? after she started Neurontin + Cymbalta ) ok to c/w florinef and midodrine. MARGO stockings. D/Brant cymbalta; Needs ECHO to R/O pericardial effusion(Sunday) ? Baroreceptor issue- Cards Seen Time Spent With Patient Time: Total time spent is greater than 50% in coordination of care (as documented) at patient's floor/unit and/or counseling patient: Progress Note: Quality Stroke Does the patient have a stroke diagnosis?: No
--- NOTE | 2022-04-22 15:23 | PC.NURSE ---
Pt has no access. Dr Castro aware.
[2022-04-22] MEDS: Enoxaparin Sodium 40 MG/0.4 ML SYRINGE SUBCUT (19:42)
[2022-04-23] VITALS (9 sets, daily range): BP systolic 82–167; BP diastolic 52–89; PULSE 68–81; RESP 16–18; TEMP 36–36.3; O2SAT 97–100
[2022-04-23] MEDS: Omeprazole 20 MG CAPSULE.DR PO (06:24)
[2022-04-23] MEDS: Fludrocortisone Acetate 0.1 MG TABLET 0.2 MG PO (07:47)
[2022-04-23] MEDS: Midodrine HCl 10 MG TABLET PO ×3 (07:47→20:02)
[2022-04-23] MEDS: Clopidogrel Bisulfate 75 MG TABLET PO (07:47)
[2022-04-23] MEDS: Sodium Chloride Tab 1 GM TABLET 2 GM PO (07:48)
[2022-04-23] MEDS: Multivitamin TABLET 1 TAB PO (07:48)
[2022-04-23] MEDS: Atorvastatin Calcium 80 MG TABLET PO (07:48)
[2022-04-23] MEDS: Aspirin Enteric Coated 81 MG TABLET.DR PO (07:48)
[2022-04-23] MEDS: Gabapentin 400 MG CAPSULE 800 MG PO ×4 (07:48→20:02)
[2022-04-23] MEDS: Doxycycline Monohydrate 100 MG CAPSULE PO ×2 (07:48→20:02)
--- NOTE | 2022-04-23 09:35 | HO.PM.IMPN ---
Subjective Subjective Date of Service: 04/23/22 Interval History: f/u orthostatic hypotension No change, orthostatic remains positive, echo yesterday no p. effusion, normal ef Review of Systems Dizzy when up no sob Physical Exam Vital Signs: Vital Signs: Last Vital Signs Temp 96.8 F 04/23/22 07:46 Pulse 81 04/23/22 07:46 Resp 18 04/23/22 07:46 BP 160/89 H 04/23/22 07:46 Pulse Ox 97 04/23/22 07:46 O2 Del Method 04/23/22 07:46 O2 Flow Rate 98 04/04/22 22:38 BMI result Body Mass Index 29.3 Const: Other: General: AO X 3, no acute distress Resp: CTA bilateral CVS: S1,S2,RRR GI: +BS, NT, no distention Skin: No rash Neuro: motor grossly intact Psych: appropriate affect Objective Data Active Medications Acetaminophen (Acetaminophen 325 Mg Tablet) 650 mg PO Q6H PRN PRN Reason: Pain, Mild (Pain Scale 1-3) Last Admin: 04/07/22 11:41 Dose: 650 mg Documented By: PANCHITO Aspirin (Aspirin Enteric Coated 81 Mg Tablet.) 81 mg PO DAILY [facility] Last Admin: 04/23/22 07:48 Dose: 81 mg Documented By: AB Atorvastatin Calcium (Atorvastatin Calcium 80 Mg Tablet) 80 mg PO DAILY [facility] Last Admin: 04/23/22 07:48 Dose: 80 mg Documented By: AB Clopidogrel Bisulfate (Clopidogrel Bisulfate 75 Mg Tablet) 75 mg PO DAILY [facility] Last Admin: 04/23/22 07:47 Dose: 75 mg Documented By: AB Doxycycline Monohydrate (Doxycycline Monohydrate 100 Mg Capsule) 100 mg PO BID [facility] Last Admin: 04/23/22 07:48 Dose: 100 mg Documented By: AB Enoxaparin Sodium (Enoxaparin Sodium 40 Mg/0.4 Ml Syringe) 40 mg SUBCUT Q24H [facility] Last Admin: 04/22/22 19:42 Dose: 40 mg Documented By: MALGORZATA Fludrocortisone Acetate (Fludrocortisone Acetate 0.1 Mg Tablet) 0.2 mg PO DAILY [facility] Last Admin: 04/23/22 07:47 Dose: 0.2 mg Documented By: AB Gabapentin (Gabapentin 400 Mg Capsule) 800 mg PO QID [facility] Last Admin: 04/23/22 07:48 Dose: 800 mg Documented By: AB Ibuprofen (Ibuprofen 400 Mg Tablet) 400 mg PO Q6H PRN PRN Reason: Headache Last Admin: 04/17/22 19:55 Dose: 400 mg Documented By: JATINDER Melatonin (Melatonin 3 Mg Tablet) 6 mg PO BEDTIME PRN PRN Reason: Insomnia Last Admin: 04/11/22 00:48 Dose: 6 mg Documented By: JATINDER Midodrine (Midodrine Hcl 10 Mg Tablet) 10 mg PO TID [facility] Last Admin: 04/23/22 07:47 Dose: 10 mg Documented By: AB Multivitamins/Vitamin C (Multivitamin Tablet) 1 tab PO DAILY [facility] Last Admin: 04/23/22 07:48 Dose: 1 tab Documented By: AB Omeprazole (Omeprazole 20 Mg Capsule.Dr) 20 mg PO DAILY@0630 [facility] Last Admin: 04/23/22 06:24 Dose: 20 mg Documented By: MALGORZATA Ondansetron HCl (Ondansetron Hcl 4 Mg/2 Ml Vial) 4 mg IVPUSH Q8H PRN PRN Reason: Nausea and Vomiting Last Admin: 04/18/22 13:48 Dose: 4 mg Documented By: LAURENT Pharmacy Consult (Consult Rx Perform Med Rec) 1 each MISCELLANE ONCE PRN PRN Reason: Consult order Sodium Chloride (0.9 % Sodium Chloride Flush 3 Ml Syringe) 3 ml IVFLUSH QSHIFT [facility] Last Admin: 04/23/22 07:52 Dose: Not Given Documented By: AB Non-Admin Reason: No Access Sodium Chloride (Sodium Chloride Tab 1 Gm Tablet) 2 gm PO DAILY [facility] Last Admin: 04/23/22 07:48 Dose: 2 gm Documented By: AB Labs CBC & Chem 7: 04/08/22 05:38 04/17/22 05:06 Assessment and Plan (1) Orthostatic hypotension: Status: Acute Plan 56-year-old female with a pertinent history of coronary artery disease status post stent, major depressive disorder, essential hypertension, mixed hyperlipidemia, peripheral neuropathy who presents to the emergency department for evaluation of syncope. 1.Orthostatic Hypotension (OH)--probably from autonomic dysfunction with prior history of diabeties. Persistent, standing BP still dropping stignificantly and symptomatic -thus far has been managed with IVF, Salt, Midodrine 10 tid, florinef 0.2 daily, meds reviewed Neurontin dose was reduced but didnt' have effect, Cymbalta stopped as potential for low BPs as well -Nephorlogy helping, will also get cardiology input, echo sunday. She remains unsafe at this point to leave at this point and may need to go to acute rehab. Echo 04/22 normal EF and no pericardial effusion 2. Hypertension--Hold meds at this time, may need meds at bedtime if supine BPs are very high 3. Coronary artery disease -dual antiplatelet therapy/high-intensity statin 4. Neuropathy--continue Neurontin at home dose DVT prophylaxis: Lovenox 40 mg daily Do not resuscitate ongoing hospitalization need : symptomatic orthostatic hypOtension with onging work up and med adjustment Ultimately to short term rehab when BP are better Quality Stroke Does the patient have a stroke diagnosis?: No VTE Prior VTE?: No VTE Risk Level:: Medical - moderate - high VTE Device Contraindication: N/A - Device Ordered VTE Drug Contraindication: N/A - Med Ordered
--- NOTE | 2022-04-23 14:22 | P.PNNP_ITS ---
Subjective Subjective Date of Service: 04/23/22 Interval history: Remains orthostatic , echo yesterday no p. effusion, normal ef Physical Exam Vital Signs: Vital Signs: Last Vital Signs Temp 96.8 F 04/23/22 11:58 Pulse 78 04/23/22 11:58 Resp 18 04/23/22 11:58 BP 114/62 04/23/22 11:58 Pulse Ox 98 04/23/22 11:58 O2 Del Method 04/23/22 11:58 O2 Flow Rate 98 04/04/22 22:38 BMI result Body Mass Index 29.3 Const: General: no acute distress Orientation/consciousness: patient oriented x3 Eyes: EOM: EOMs intact bilaterally Neck: Neck: Yes supple Resp: Auscultation: diminished lung sounds Cardio: Rate: regular rate GI: Palpation (GI): Soft to palpation Neuro: General: patient oriented x3 and moves all extremities Objective Data Labs CBC & Chem 7: 04/08/22 05:38 04/17/22 05:06 Procedures Date of Service Date of Service: 04/23/22 Assessment & Plan Assessment and plan (1) Orthostatic hypotension: Status: Acute Assessment and Plan: 56-year-old female with a pertinent history of coronary artery disease status post stent, major depressive disorder, essential hypertension, mixed hype rlipidemia, peripheral neuropathy, with prior diabetic disease who presents to the emergency department for evaluation of syncope. Orthostatic Hypotension a recent development in the last several weeks ( ? after she started Cymbalta ) ok to c/w florinef and midodrine. MARGO stockings. D/Brant cymbalta; ECHO R/O pericardial effusion ? Baroreceptor issue vs Autonomic dysfunction ( No tachycardia)- Cards Seen Time Spent With Patient Time: Total time spent is greater than 50% in coordination of care (as documented) at patient's floor/unit and/or counseling patient: Progress Note: Quality Stroke Does the patient have a stroke diagnosis?: No
[2022-04-23] MEDS: Enoxaparin Sodium 40 MG/0.4 ML SYRINGE SUBCUT (20:01)
[2022-04-24] VITALS (13 sets, daily range): BP systolic 84–187; BP diastolic 62–94; PULSE 67–90; RESP 16–18; TEMP 36.1–36.7; O2SAT 97–99
[2022-04-24] MEDS: Omeprazole 20 MG CAPSULE.DR PO (05:46)
[2022-04-24] MEDS: Gabapentin 400 MG CAPSULE 800 MG PO ×4 (08:32→19:48)
[2022-04-24] MEDS: Sodium Chloride Tab 1 GM TABLET 2 GM PO (08:32)
[2022-04-24] MEDS: Midodrine HCl 10 MG TABLET PO ×3 (08:32→19:48)
[2022-04-24] MEDS: Aspirin Enteric Coated 81 MG TABLET.DR PO (08:33)
[2022-04-24] MEDS: Atorvastatin Calcium 80 MG TABLET PO (08:33)
[2022-04-24] MEDS: Doxycycline Monohydrate 100 MG CAPSULE PO ×2 (08:33→19:48)
[2022-04-24] MEDS: Multivitamin TABLET 1 TAB PO (08:33)
[2022-04-24] MEDS: Clopidogrel Bisulfate 75 MG TABLET PO (08:33)
[2022-04-24] MEDS: Fludrocortisone Acetate 0.1 MG TABLET 0.2 MG PO (08:33)
--- NOTE | 2022-04-24 09:18 | HO.PM.IMPN ---
Subjective Subjective Date of Service: 04/24/22 Interval History: cc: syncope interval history:still with dizzyness on ambulation, but somewhat better today Cardiovascular Cardiovascular: Reports no additional cardiovascular complaints Respiratory Respiratory: Reports no additional respiratory complaints Physical Exam Vital Signs: Vital Signs: Last Vital Signs Temp 97.3 F 04/24/22 03:22 Pulse 79 04/24/22 07:33 Resp 18 04/24/22 07:33 BP 124/76 04/24/22 07:33 Pulse Ox 98 04/24/22 07:33 O2 Del Method 04/24/22 07:33 O2 Flow Rate 98 04/04/22 22:38 BMI result Body Mass Index 29.3 General: AO X 3, no acute distress Resp: CTA bilateral, no accessory muscles used CVS: S1,S2,RRR GI: soft, non tender, non distended Neuro: motor grossly intact, alert Psych: appropriate affect, appropriate insight Objective Data Active Medications Acetaminophen (Acetaminophen 325 Mg Tablet) 650 mg PO Q6H PRN PRN Reason: Pain, Mild (Pain Scale 1-3) Last Admin: 04/07/22 11:41 Dose: 650 mg Documented By: PANCHITO Aspirin (Aspirin Enteric Coated 81 Mg Tablet.) 81 mg PO DAILY [facility] Last Admin: 04/24/22 08:33 Dose: 81 mg Documented By: BELLE Atorvastatin Calcium (Atorvastatin Calcium 80 Mg Tablet) 80 mg PO DAILY [facility] Last Admin: 04/24/22 08:33 Dose: 80 mg Documented By: BELLE Clopidogrel Bisulfate (Clopidogrel Bisulfate 75 Mg Tablet) 75 mg PO DAILY [facility] Last Admin: 04/24/22 08:33 Dose: 75 mg Documented By: BELLE Doxycycline Monohydrate (Doxycycline Monohydrate 100 Mg Capsule) 100 mg PO BID [facility] Last Admin: 04/24/22 08:33 Dose: 100 mg Documented By: BELLE Enoxaparin Sodium (Enoxaparin Sodium 40 Mg/0.4 Ml Syringe) 40 mg SUBCUT Q24H [facility] Last Admin: 04/23/22 20:01 Dose: 40 mg Documented By: MONI Fludrocortisone Acetate (Fludrocortisone Acetate 0.1 Mg Tablet) 0.2 mg PO DAILY [facility] Last Admin: 04/24/22 08:33 Dose: 0.2 mg Documented By: BELLE Gabapentin (Gabapentin 400 Mg Capsule) 800 mg PO QID [facility] Last Admin: 04/24/22 08:32 Dose: 800 mg Documented By: BELLE Ibuprofen (Ibuprofen 400 Mg Tablet) 400 mg PO Q6H PRN PRN Reason: Headache Last Admin: 04/17/22 19:55 Dose: 400 mg Documented By: JATINDER Melatonin (Melatonin 3 Mg Tablet) 6 mg PO BEDTIME PRN PRN Reason: Insomnia Last Admin: 04/11/22 00:48 Dose: 6 mg Documented By: JATINDER Midodrine (Midodrine Hcl 10 Mg Tablet) 10 mg PO TID [facility] Last Admin: 04/24/22 08:32 Dose: 10 mg Documented By: BELLE Multivitamins/Vitamin C (Multivitamin Tablet) 1 tab PO DAILY [facility] Last Admin: 04/24/22 08:33 Dose: 1 tab Documented By: BELLE Omeprazole (Omeprazole 20 Mg Capsule.Dr) 20 mg PO DAILY@0630 [facility] Last Admin: 04/24/22 05:46 Dose: 20 mg Documented By: MONI Ondansetron HCl (Ondansetron Hcl 4 Mg/2 Ml Vial) 4 mg IVPUSH Q8H PRN PRN Reason: Nausea and Vomiting Last Admin: 04/18/22 13:48 Dose: 4 mg Documented By: LAURENT Pharmacy Consult (Consult Rx Perform Med Rec) 1 each MISCELLANE ONCE PRN PRN Reason: Consult order Sodium Chloride (0.9 % Sodium Chloride Flush 3 Ml Syringe) 3 ml IVFLUSH QSHIFT [facility] Last Admin: 04/24/22 08:38 Dose: Not Given Documented By: BELLE Non-Admin Reason: No Access Sodium Chloride (Sodium Chloride Tab 1 Gm Tablet) 2 gm PO DAILY [facility] Last Admin: 04/24/22 08:32 Dose: 2 gm Documented By: BELLE Labs CBC & Chem 7: 04/08/22 05:38 04/17/22 05:06 Assessment and Plan (1) Orthostatic hypotension: Status: Acute Plan 56-year-old female with a pertinent history of coronary artery disease status post stent, ETOH dependence, major depressive disorder, essential hypertension, mixed hyperlipidemia, peripheral neuropathy, morbid obesity and DM now resolved after 100lbs weight loss, who presented to the emergency department for evaluation of syncope. syncope due to orthostatic hypotension with supine hypertension contirbuting factors include: peripheral neuropathy from history of DM and ETOH dependence, recent weight loss, medication effect (coreg, cymbalta) coreg and cymbalta discontinued continue salt tablets, florinef, midodrine did not tolerate discontinuing gabapentin due to severe pain continue MARGO stockings, orthostatic precautions follow up aldosterone plan for acute rehab CAD with history of ischemic cardiomyopathy now with recovered EF continue asa, plavix, statin cannot tolerate neurohormonals history of DM with diabetic neuropathy DM resolved with weight loss continue gabapentin for neuropathy ETOH dependence in remission DVT prophylaxis: Lovenox 40 mg daily Do not resuscitate reason for continued hospitalization:awaiting acute rehab Quality Stroke Does the patient have a stroke diagnosis?: No VTE Prior VTE?: No VTE Risk Level:: Medical - moderate - high VTE Device Contraindication: N/A - Device Ordered VTE Drug Contraindication: N/A - Med Ordered
--- NOTE | 2022-04-24 09:46 | P.PNNP_ITS ---
Subjective Subjective Date of Service: 04/24/22 Interval history: Seen and examiend, events noted Physical Exam Vital Signs: Vital Signs: Last Vital Signs Temp 97.3 F 04/24/22 03:22 Pulse 79 04/24/22 07:33 Resp 18 04/24/22 07:33 BP 124/76 04/24/22 07:33 Pulse Ox 98 04/24/22 07:33 O2 Del Method 04/24/22 07:33 O2 Flow Rate 98 04/04/22 22:38 BMI result Body Mass Index 29.3 Const: Other: General: AO X 3, no acute distress Resp: CTA bilateral CVS: S1,S2,RRR GI: +BS, NT, no distention Skin: No rash Neuro: motor grossly intact Psych: appropriate affect General: cooperative, no acute distress, alert and awake Nutritional Appearance: well nourished Orientation/consciousness: patient oriented x3 Limitations: no limitations HEENT: Head: Yes normal to inspection and Yes atraumatic Ears: hearing grossly normal bilaterally and external ears normal General nose exam: Normal external nose present, no nasal discharge noted and no epistaxis Face and sinus: Yes normal facial exam, No abrasion and No laceration Mouth: Normal oral and palatal mucosa present, no drooling and no muffled voice Eyes: General: appearance normal, both eyes and all related structures Periorbital: periorbital findings normal Eyelids: Yes eyelids normal Conjunctivae: conjunctivae normal Pupils: Equal, round and reactive pupils present EOM: EOMs intact bilaterally Neck: Neck: Yes normal visual inspection, Yes full ROM and Yes no lymphadenopathy Chest: Chest palpation & inspection: normal inspection of the chest Resp: Effort & Inspection: normal respiratory effort and able to speak in complete sentences Auscultation: clear to auscultation bilaterally Cardio: Rate: regular rate Rhythm: regular rhythm GI: Inspection: Yes normal to inspection Neuro: General: patient oriented x3 and moves all extremities Cranial ner ves: Yes Equal, round and reactive pupils present Cognition (Neuro): normal cognition Motor exam (neuro): 5/5 motor strength present throughout Sensory Exam: Normal double simultaneous stimulation for sensation Coordination: [id number] test normal Extrem: General: Yes normal to inspection, Yes full ROM and Yes capillary refill normal Psych: Appearance: grossly normal Mental Status: mental status grossly normal Affect: normal affect Attitude: cooperative Thought process: Normal thought process present Thought content: Normal thought content present Insight: Good insight present (Psych) Objective Data Labs CBC & Chem 7: 04/08/22 05:38 04/17/22 05:06 Procedures Date of Service Date of Service: 04/24/22 Assessment & Plan Assessment and plan (1) Orthostatic hypotension: Status: Acute (2) HTN (hypertension): Status: Acute (3) CAD (coronary artery disease): Status: Acute Plan 56-year-old female with a pertinent history of coronary artery disease status post stent, major depressive disorder, essential hypertension, mixed hyperlipidemia, peripheral neuropathy who presents to the emergency department for evaluation of syncope. Supine HTN with severe symptomatic OH ( SHOH): very impressive drops in BP with upright position and supine severe Systolic HTN despite maximal Tx: midrdine and florinef REC: cont use leg stockings; cont use of midrodine and florinef and wll evaluate as outpt fro Northera ( Doxidropa); agree with xfer to acute rehab to help L/S changes to deal with SHOH Time Spent With Patient Time: Total time spent is greater than 50% in coordination of care (as documented) at patient's floor/unit and/or counseling patient: Progress Note: Quality Stroke Does the patient have a stroke diagnosis?: No
--- NOTE | 2022-04-24 11:40 | P.PNCA_ITS ---
Subjective Subjective Date of Service: 04/24/22 Principal diagnosis: Orthostatic hypotension and syncope Interval history: Patient continues to have symptoms of lightheadedness when she is up and about for few minutes. She has not had any syncopal episodes. Heart rate stable. Denies any chest pain or shortness of breath. Blood pressure is highly variable and with episodes of low blood pressure as well as supine hypertension. Review of Systems Review of Systems Yes all other systems are reviewed and are negative Physical Exam Vital Signs: Last Vital Signs Temp 96.9 F 04/24/22 11:21 Pulse 74 04/24/22 11:21 Resp 18 04/24/22 11:21 BP 148/71 H 04/24/22 11:21 Pulse Ox 98 04/24/22 11:21 O2 Del Method 04/24/22 11:21 O2 Flow Rate 98 04/04/22 22:38 BMI result Body Mass Index 29.3 Const General: cooperative, comfortable, no acute distress, alert and awake Nutritional Appearance: overweight Orientation/consciousness: patient oriented x3 Neck Neck: Yes trachea midline, Yes supple and Yes no JVD Resp Effort & Inspection: normal respiratory effort Auscultation: clear to auscultation bilaterally Cardio Jugular venous distension: no JVD Palpation: normal PMI Rate: regular rate Rhythm: regular rhythm Heart sounds: S1 normal heart sound present, S2 normal heart sound present, no click, no gallops and Murmur heart sound present systolic mid, decrescendo and crescendo GI Auscultation: normal bowel sounds Skin General skin exam: no rashes or lesions noted Neuro General: patient oriented x3 and no focal motor deficits Extrem General: Yes no clubbing, cyanosis or edema Objective Labs and Meds Result diagrams: 04/08/22 05:38 04/17/22 05:06 Progress Note: A&P Assessment and plan (1) Orthostatic hypotension dysautonomic syndrome: Status: Acute Assessment and Plan: Patient with severe and disabling orthostatic hypertension secondary dysautonomia syndrome most likely deleted to diabetic autonomic neuropathy. Discussed with the patient that this is a very difficult syndrome to treat especially given that she has supine hypertension already echo finding suggestive of diastolic dysfunction elevated filling pressures. She continues to have symptoms orthostatic hypertension after being upright for some period time and is currently on maximal therapy with midodrine as well as Florinef. At this point time advised her to increase her fluid intake. Continue current ther apy but midodrine should be time to half an hour before breakfast, lunch and supper time. Potential side effects of these medications include supine hypertension. She already has some evidence of supine hypertension. Other precautions include orthostatic precautions with avoidance of prolonged standing and if she gets symptoms to his room sitting or supine position. Agree with compression stocking to the lower part of the body. Also agree with sleeping in a semi reclining position at all times. Measuring blood pressure religiously at home. If she has persistent supine hypertension after she is in bed, her regimen should include short-acting antihypertensive such as hydralazine and/or Isordil to control supine hypertension to avoid progressive diastolic dysfunction heart failure syndrome. This was discussed with her. Overall difficulty managing this situation was discussed with her as well. She understands agrees. (2) CAD (coronary artery disease): Status: Acute Assessment and Plan: Prior history of CAD with LAD stent in 2009. Can be on single antiplatelet agent with aspirin. Currently not having any acute coronary syndrome symptoms. Continue high-intensity statin therapy with Lipitor 80 mg daily. Avoid other blood pressure lowering medications. Continue aggressive management of diabetes. Patient has been noncompliant with follow-up after stenting in 2020. Advise follow-up. (3) Aortic stenosis: Status: Acute Assessment and Plan: Aortic stenosis which appears to be [id number]. Continue to monitor clinically and aggressive vascular risk factor modifications above. Will sign of the case and follow-up as outpatient. Thank you for allowing us to partake in the care Time Spent With Patient Time: Total time spent is greater than 50% in coordination of care (as documented) at patient's floor/unit and/or counseling patient: Progress Note: Quality Stroke Does the patient have a stroke diagnosis?: No Procedures Date of Service Date of Service: 04/24/22
--- NOTE | 2022-04-24 13:47 | MHC.CM.PN ---
EMR REVIEWED, [facility] OFFERING BED PENDING INSURANCE AUTH, CM WILL CONT TO FOLLOW.
[2022-04-24] MEDS: Ibuprofen 400 MG TABLET PO (14:38)
[2022-04-24] MEDS: Enoxaparin Sodium 40 MG/0.4 ML SYRINGE SUBCUT (19:48)
[2022-04-25] VITALS (13 sets, daily range): BP systolic 83–191; BP diastolic 61–108; PULSE 68–86; RESP 8–20; TEMP 36.1–36.8; O2SAT 97–99
[2022-04-25] MEDS: Omeprazole 20 MG CAPSULE.DR PO (06:13)
[2022-04-25] MEDS: Fludrocortisone Acetate 0.1 MG TABLET 0.2 MG PO (08:09)
[2022-04-25] MEDS: Atorvastatin Calcium 80 MG TABLET PO (08:09)
[2022-04-25] MEDS: Aspirin Enteric Coated 81 MG TABLET.DR PO (08:09)
[2022-04-25] MEDS: Sodium Chloride Tab 1 GM TABLET 2 GM PO (08:09)
[2022-04-25] MEDS: Clopidogrel Bisulfate 75 MG TABLET PO (08:09)
[2022-04-25] MEDS: Gabapentin 400 MG CAPSULE 800 MG PO ×4 (08:09→21:23)
[2022-04-25] MEDS: Doxycycline Monohydrate 100 MG CAPSULE PO ×2 (08:09→21:23)
[2022-04-25] MEDS: Midodrine HCl 10 MG TABLET PO ×2 (08:09→14:48)
[2022-04-25] MEDS: Multivitamin TABLET 1 TAB PO (08:10)
[2022-04-25] MEDS: Ibuprofen 400 MG TABLET PO (11:19)
--- NOTE | 2022-04-25 11:20 | P.PNNP_ITS ---
Subjective Subjective Date of Service: 04/25/22 Principal diagnosis: Orthostatic hypotension and syncope Interval history: Seen and examiend, events noted Physical Exam Vital Signs: Vital Signs: Last Vital Signs Temp 97.0 F 04/25/22 07:53 Pulse 68 04/25/22 10:49 Resp 18 04/25/22 07:53 BP 177/81 H 04/25/22 10:49 Pulse Ox 98 04/25/22 07:53 O2 Del Method 04/25/22 07:53 O2 Flow Rate 98 04/04/22 22:38 BMI result Body Mass Index 29.3 Const: Other: General: AO X 3, no acute distress Resp: CTA bilateral CVS: S1,S2,RRR GI: +BS, NT, no distention Skin: No rash Neuro: motor grossly intact Psych: appropriate affect General: cooperative, no acute distress, alert and awake Nutritional Ap pearance: well nourished Orientation/consciousness: patient oriented x3 Limitations: no limitations HEENT: Head: Yes normal to inspection and Yes atraumatic Ears: hearing grossly normal bilaterally and external ears normal General nose exam: Normal external nose present, no nasal discharge noted and no epistaxis Face and sinus: Yes normal facial exam, No abrasion and No laceration Mouth: Normal oral and palatal mucosa present, no drooling and no muffled voice Eyes: General: appearance normal, both eyes and all related structures Periorbital: periorbital findings normal Eyelids: Yes eyelids normal Conjunctivae: conjunctivae normal Pupils: Equal, round and reactive pupils present EOM: EOMs intact bilaterally Neck: Neck: Yes normal visual inspection, Yes full ROM, Yes no lymphadenopathy and Yes supple Chest: Chest palpation & inspection: normal inspection of the chest Resp: Effort & Inspection: normal respiratory effort and able to speak in complete sentences Auscultation: clear to auscultation bilaterally and diminished lung sounds Cardio: Rate: regular rate Rhythm: regular rhythm GI: Inspection: Yes normal to inspection Palpation (GI): Soft to palpation Neuro: General: patient oriented x3 and moves all extremities Cranial nerves: Yes Equal, round and reactive pupils present Cognition (Neuro): normal cognition Motor exam (neuro): 5/5 motor strength present throughout Sensory Exam: Normal double simultaneous stimulation for sensation Coordination: [id number] test normal Extrem: General: Yes normal to inspection, Yes full ROM and Yes capillary refill normal Psych: Appearance: grossly normal Mental Status: mental status grossly normal Affect: normal affect Attitude: cooperative Thought process: Normal thought process present Thought content: Normal thought content presen t Insight: Good insight present (Psych) Objective Data Labs CBC & Chem 7: 04/08/22 05:38 04/17/22 05:06 Labs: Laboratory Results - last 24 hr 04/17/22 05:06 Aldosterone <1 Procedures Date of Service Date of Service: 04/25/22 Assessment & Plan Assessment and plan (1) Orthostatic hypotension: Status: Acute (2) HTN (hypertension): Status: Acute (3) CAD (coronary artery disease): Status: Acute Plan 56-year-old female with a pertinent history of coronary artery disease status post stent, major depressive disorder, essential hypertension, mixed hyperlipidemia, peripheral neuropathy who presents to the emergency department for evaluation of syncope. Supine HTN with severe symptomatic OH ( SHOH): very impressive drops in BP with upright position and supine severe Systolic HTN despite maximal Tx: midrdine and florinef REC: cont use leg stockings; cont use of midrodine and florinef and wll evaluate as outpt fro Northera ( Doxidropa); agree with xfer to acute rehab to help L/S changes to deal with SHOH howard off on nitetime BP med for now--will try to get ABPM as outpt and reassess use of noturnal short acting BP med Time Spent With Patient Time: Total time spent is greater than 50% in coordination of care (as documented) at patient's floor/unit and/or counseling patient: Progress Note: Quality Stroke Does the patient have a stroke diagnosis?: No
--- NOTE | 2022-04-25 11:31 | HO.PM.IMPN ---
Subjective Subjective Date of Service: 04/25/22 Interval History: cc: syncope interval history:still with dizziness on ambulation, but somewhat better Cardiovascular Cardiovascular: Reports no additional cardiovascular complaints Respiratory Respiratory: Reports no additional respiratory complaints Physical Exam Vital Signs: Vital Signs: Last Vital Signs Temp 97.0 F 04/25/22 07:53 Pulse 68 04/25/22 10:49 Resp 18 04/25/22 07:53 BP 177/81 H 04/25/22 10:49 Pulse Ox 98 04/25/22 07:53 O2 Del Method 04/25/22 07:53 O2 Flow Rate 98 04/04/22 22:38 BMI result Body Mass Index 29.3 Const: Other: General: AO X 3, no acute distress Resp: CTA bilateral CVS: S1,S2,RRR GI: +BS, NT, no distention Skin: No rash Neuro: motor grossly intact Psych: appropriate affect General: cooperative, no acute distress, alert and awake Nutritional Appearance: well nourished Orientation/consciousness: patient oriented x3 Limitations: no limitations HEENT: Head: Yes normal to inspection and Yes atraumatic Ears: hearing grossly normal bilaterally and external ears normal General nose exam: Normal external nose present, no nasal discharge noted and no epistaxis Face and sinus: Yes normal facial exam, No abrasion and No laceration Mouth: Normal oral and palatal mucosa present, no drooling and no muffled voice Eyes: General: appearance normal, both eyes and all related structures Periorbital: periorbital findings normal Eyelids: Yes eyelids normal Conjunctivae: conjunctivae normal Pupils: Equal, round and reactive pupils present EOM: EOMs intact bilaterally Neck: Neck: Yes normal visual inspection, Yes full ROM, Yes no lymphadenopathy and Yes supple Chest: Chest palpation & inspection: normal inspection of the chest Resp: Effort & Inspection: normal respiratory effort and able to speak in complete sentences Auscultation: clear to auscultation bilaterally and diminished lung sounds Cardio: Rate: regular rate Rhythm: regular rhythm GI: Inspection: Yes normal to inspection Palpation (GI): Soft to palpation Neuro: General: patient oriented x3 and moves all extremities Cranial nerves: Yes Equal, round and reactive pupils present Cognition (Neuro): normal cognition Motor exam (neuro): 5/5 motor strength present throughout Sensory Exam: Normal double simultaneous stimulation for sensation Coordination: [id number] test normal Extrem: General: Yes normal to inspection, Yes full ROM and Yes capillary refill normal Psych: Appearance: grossly normal Mental Status: mental status grossly normal Affect: normal affect Attitude: cooperative Thought process: Normal thought process present Thought content: Normal thought content present Insight: Good insight present (Psych) Objective Data Active Medications Acetaminophen (Acetaminophen 325 Mg Tablet) 650 mg PO Q6H PRN PRN Reason: Pain, Mild (Pain Scale 1-3) Last Admin: 04/07/22 11:41 Dose: 650 mg Documented By: PANCHITO Aspirin (Aspirin Enteric Coated 81 Mg Tablet.) 81 mg PO DAILY [facility] Last Admin: 04/25/22 08:09 Dose: 81 mg Documented By: EDMOND Atorvastatin Calcium (Atorvastatin Calcium 80 Mg Tablet) 80 mg PO DAILY [facility] Last Admin: 04/25/22 08:09 Dose: 80 mg Documented By: EDMOND Clopidogrel Bisulfate (Clopidogrel Bisulfate 75 Mg Tablet) 75 mg PO DAILY [facility] Last Admin: 04/25/22 08:09 Dose: 75 mg Documented By: EDMOND Doxycycline Monohydrate (Doxycycline Monohydrate 100 Mg Capsule) 100 mg PO BID [facility] Last Admin: 04/25/22 08:09 Dose: 100 mg Documented By: EDMOND Enoxaparin Sodium (Enoxaparin Sodium 40 Mg/0.4 Ml Syringe) 40 mg SUBCUT Q24H [facility] Last Admin: 04/24/22 19:48 Dose: 40 mg Documented By: ANDREI Fludrocortisone Acetate (Fludrocortisone Acetate 0.1 Mg Tablet) 0.2 mg PO DAILY [facility] Last Admin: 04/25/22 08:09 Dose: 0.2 mg Documented By: EDMOND Gabapentin (Gabapentin 400 Mg Capsule) 800 mg PO QID [facility] Last Admin: 04/25/22 08:09 Dose: 800 mg Documented By: EDMOND Ibuprofen (Ibuprofen 400 Mg Tablet) 400 mg PO Q6H PRN PRN Reason: Headache Last Admin: 04/25/22 11:19 Dose: 400 mg Documented By: EDMOND Melatonin (Melatonin 3 Mg Tablet) 6 mg PO BEDTIME PRN PRN Reason: Insomnia Last Admin: 04/11/22 00:48 Dose: 6 mg Documented By: JATINDER Midodrine (Midodrine Hcl 10 Mg Tablet) 10 mg PO TID [facility] Last Admin: 04/25/22 08:09 Dose: 10 mg Documented By: EDMOND Multivitamins/Vitamin C (Multivitamin Tablet) 1 tab PO DAILY [facility] Last Admin: 04/25/22 08:10 Dose: 1 tab Documented By: EDMOND Omeprazole (Omeprazole 20 Mg Capsule.) 20 mg PO DAILY@0630 [facility] Last Admin: 04/25/22 06:13 Dose: 20 mg Documented By: ANDREI Ondansetron HCl (Ondansetron Hcl 4 Mg/2 Ml Vial) 4 mg IVPUSH Q8H PRN PRN Reason: Nausea and Vomiting Last Admin: 04/18/22 13:48 Dose: 4 mg Documented By: LAURENT Pharmacy Consult (Consult Rx Perform Med Rec) 1 each MISCELLANE ONCE PRN PRN Reason: Consult order Sodium Chloride (0.9 % Sodium Chloride Flush 3 Ml Syringe) 3 ml IVFLUSH QSHIFT [facility] Last Admin: 04/25/22 08:08 Dose: Not Given Documented By: EDMOND Non-Admin Reason: No Access Sodium Chloride (Sodium Chloride Tab 1 Gm Tablet) 2 gm PO DAILY [facility] Last Admin: 04/25/22 08:09 Dose: 2 gm Documented By: EDMOND Labs CBC & Chem 7: 04/08/22 05:38 04/17/22 05:06 Labs: Laboratory Results - last 24 hr 04/17/22 05:06 Aldosterone <1 Assessment and Plan (1) Orthostatic hypotension: Status: Acute Plan 56-year-old female with a pertinent history of coronary artery disease status post stent, ETOH dependence, major depressive disorder, essential hypertension, mixed hyperlipidemia, peripheral neuropathy, morbid obesity and DM now resolved after 100lbs weight loss, who presented to the emergency department for evaluation of syncope. syncope due to orthostatic hypotension with supine hypertension contributing factors include: peripheral neuropathy from history of DM and ETOH dependence, recent weight loss, medication effect (coreg, cymbalta) coreg and cymbalta discontinued continue salt tablets, florinef, midodrine did not tolerate discontinuing gabapentin due to severe pain continue MARGO stockings, orthostatic precautions follow up aldosterone level plan for SNF outpatient follow up for possible northera, 24hr bp monitor when hypertensive would recommend positional change as opposed to antihypertensive should sleep at 35-35 degree angle CAD with history of ischemic cardiomyopathy now with recovered EF continue asa, plavix, statin cannot tolerate neurohormonals history of DM with diabetic neuropathy DM resolved with weight loss continue gabapentin for neuropathy ETOH dependence in remission DVT prophylaxis: Lovenox 40 mg daily Do not resuscitate reason for continued hospitalization:awaiting SNF bed/auth Quality Stroke Does the patient have a stroke diagnosis?: No VTE Prior VTE?: No VTE Risk Level:: Medical - moderate - high VTE Device Contraindication: N/A - Device Ordered VTE Drug Contraindication: N/A - Med Ordered
--- NOTE | 2022-04-25 11:53 | MHC.CM.PN ---
PT'S INSURANCE DENIED ACUTE REHAB, CM MET W/PT AND PT AGREEABLE TO CM BROADCASTING SNF REFERRAL AND WILL REVISIT W/PT ONCE BED OFFER RECEIVED, AT TIME OF THIS NOTE CM HAS RECEIVED RESPONSES FROM 15 SNF'S W/NO BEDS AVAILABLE, UNABLE TO ACCOMMODATE AND NOT CONTRACTED W/PT'S INSURANCE, REFERRAL SENT TO ADDITIONAL SNF'S.
--- NOTE | 2022-04-25 15:21 | PC.NURSE ---
Orthostatics this AM 177/81 lying, 122/72 sitting, 83/[address] Rhodes. Noontime BP 191/108. Reported to Dr. Rhodes. Ok'd to give midodrine dose if patient is going to be getting up. Patient OOB, ambulating to BR frequently and up in chair. Complaining of Headache this afternoon. Medicated with prn Ibuprofen with good effect.
--- NOTE | 2022-04-25 15:34 | PC.NURSE ---
pt has no IV access ,ok per Dr. Rhodes
[2022-04-25] MEDS: Enoxaparin Sodium 40 MG/0.4 ML SYRINGE SUBCUT (21:23)
[2022-04-26] VITALS (8 sets, daily range): BP systolic 103–183; BP diastolic 63–98; PULSE 74–88; RESP 16–18; TEMP 36.4–36.9; O2SAT 97–99
[2022-04-26] MEDS: Omeprazole 20 MG CAPSULE.DR PO (05:58)
[2022-04-26] MEDS: Ibuprofen 400 MG TABLET PO ×2 (06:03→17:23)
[2022-04-26] MEDS: Gabapentin 400 MG CAPSULE 800 MG PO ×4 (08:05→20:46)
[2022-04-26] MEDS: Atorvastatin Calcium 80 MG TABLET PO (08:05)
[2022-04-26] MEDS: Aspirin Enteric Coated 81 MG TABLET.DR PO (08:05)
[2022-04-26] MEDS: Multivitamin TABLET 1 TAB PO (08:05)
[2022-04-26] MEDS: Doxycycline Monohydrate 100 MG CAPSULE PO ×2 (08:05→20:46)
[2022-04-26] MEDS: Clopidogrel Bisulfate 75 MG TABLET PO (08:05)
[2022-04-26] MEDS: Butalb/Acetamin/Caff 50/325/40 TABLET 1 TAB PO ×2 (08:27→12:38)
[2022-04-26] MEDS: amLODIPine Besylate 2.5 MG TABLET PO (09:41)
[2022-04-26] MEDS: Fludrocortisone Acetate 0.1 MG TABLET 0.2 MG PO (10:45)
[2022-04-26] MEDS: Midodrine HCl 10 MG TABLET PO ×3 (10:46→20:46)
--- NOTE | 2022-04-26 10:51 | P.PNNP_ITS ---
Subjective Subjective Date of Service: 04/26/22 Principal diagnosis: Orthostatic hypotension and syncope Interval history: Seen and examined, events noted Physical Exam Vital Signs: Vital Signs: Last Vital Signs Temp 97.7 F 04/26/22 07:42 Pulse 77 04/26/22 10:00 Resp 17 04/26/22 07:42 BP 123/86 04/26/22 10:00 Pulse Ox 99 04/26/22 07:42 O2 Del Method 04/26/22 07:42 O2 Flow Rate 98 04/04/22 22:38 BMI result Body Mass Index 29.3 Const: Other: General: AO X 3, no acute distress Resp: CTA bilateral CVS: S1,S2,RRR GI: +BS, NT, no distention Skin: No rash Neuro: motor grossly intact Psych: appropriate affect General: cooperative, no acute distress, alert and awake Nutritional Ap pearance: well nourished Orientation/consciousness: patient oriented x3 Limitations: no limitations HEENT: Head: Yes normal to inspection and Yes atraumatic Ears: hearing grossly normal bilaterally and external ears normal General nose exam: Normal external nose present, no nasal discharge noted and no epistaxis Face and sinus: Yes normal facial exam, No abrasion and No laceration Mouth: Normal oral and palatal mucosa present, no drooling and no muffled voice Eyes: General: appearance normal, both eyes and all related structures Periorbital: periorbital findings normal Eyelids: Yes eyelids normal Conjunctivae: conjunctivae normal Pupils: Equal, round and reactive pupils present EOM: EOMs intact bilaterally Neck: Neck: Yes normal visual inspection, Yes full ROM, Yes no lymphadenopathy and Yes supple Chest: Chest palpation & inspection: normal inspection of the chest Resp: Effort & Inspection: normal respiratory effort and able to speak in complete sentences Auscultation: clear to auscultation bilaterally and diminished lung sounds Cardio: Rate: regular rate Rhythm: regular rhythm GI: Inspection: Yes normal to inspection Palpation (GI): Soft to palpation Neuro: General: patient oriented x3 and moves all extremities Cranial nerves: Yes Equal, round and reactive pupils present Cognition (Neuro): normal cognition Motor exam (neuro): 5/5 motor strength present throughout Sensory Exam: Normal double simultaneous stimulation for sensation Coordination: [id number] test normal Extrem: General: Yes normal to inspection, Yes full ROM and Yes capillary refill normal Psych: Appearance: grossly normal Mental Status: mental status grossly normal Affect: normal affect Attitude: cooperative Thought process: Normal thought process present Thought content: Normal thought content presen t Insight: Good insight present (Psych) Objective Data Labs CBC & Chem 7: 04/08/22 05:38 04/17/22 05:06 Procedures Date of Service Date of Service: 04/26/22 Assessment & Plan Assessment and plan (1) Orthostatic hypotension: Status: Acute (2) HTN (hypertension): Status: Acute (3) CAD (coronary artery disease): Status: Acute Plan 56-year-old female with a pertinent history of coronary artery disease status post stent, major depressive disorder, essential hypertension, mixed hyperlipidemia, peripheral neuropathy who presents to the emergency department for evaluation of syncope. Supine HTN with severe symptomatic OH ( SHOH): very impressive drops in BP with upright position and supine severe Systolic HTN despite maximal Tx: midrdine and florinef REC: cont use leg stockings; cont use of midrodine and florinef and wll evaluate as outpt fro Northera ( Doxidropa); agree with xfer to acute rehab to help L/S changes to deal with SHOH If supne or sitting BP markedly elveated then have her standup and check BP and if remains sustained elvated then consider short acting BP med--hydralazine 10mg hold off on nitetime BP med for now--will try to get ABPM as outpt and reassess use of noturnal short acting BP med Time Spent With Patient Time: Total time spent is greater than 50% in coordination of care (as documented) at patient's floor/unit and/or counseling patient: Progress Note: Quality Stroke Does the patient have a stroke diagnosis?: No
--- NOTE | 2022-04-26 11:50 | P.PNIM_ITS ---
Subjective Subjective Date of Service: 04/26/22 Interval History: the patient was seen and evaluated this morning Laying in bed, complaining of headache and elevated blood pressure readings No reported other overnight events. Systemic review: No fever, chills or weakness No chest pain, palpitation No shortness of breath or coughing No abdominal pain, nausea or vomiting No urinary symptoms No reported rash Physical Exam Vital Signs: Vital Signs: Last Vital Signs Temp 98.4 F 04/26/22 11:45 Pulse 80 04/26/22 11:45 Resp 18 04/26/22 11:45 BP 137/87 04/26/22 11:45 Pulse Ox 97 04/26/22 11:45 O2 Del Method 04/26/22 11:45 O2 Flow Rate 98 04/04/22 22:38 BMI result Body Mass Index 29.3 Const: Other: Constitutional : Awake, interactive, not in distress Neck : Normal inspection, Supple Cardiovascular : RRR, no JVP, no lower extremity edema Respiratory : good bilateral air entry, no crackles, wheezes or rhonchi Gastrointestinal: soft, lax, Normal bowel sounds, Non tender Skin : Warm, Dry Neurological : Alert & oriented x3, No focal deficit , CN 2-12 within normal Objective Data Active Medications Acetaminophen (Acetaminophen 325 Mg Tablet) 650 mg PO Q6H PRN PRN Reason: Pain, Mild (Pain Scale 1-3) Last Admin: 04/07/22 11:41 Dose: 650 mg Documented By: PANCHITO Acetaminophen/Butalbital/Caffeine (Butalb/Acetamin/Caff 50/325/40 Tablet) 1 tab PO Q4H PRN PRN Reason: Headache Last Admin: 04/26/22 08:27 Dose: 1 tab Documented By: EDMOND Aspirin (Aspirin Enteric Coated 81 Mg Tablet.) 81 mg PO DAILY [facility] Last Admin: 04/26/22 08:05 Dose: 81 mg Documented By: EDMOND Atorvastatin Calcium (Atorvastatin Calcium 80 Mg Tablet) 80 mg PO DAILY [facility] Last Admin: 04/26/22 08:05 Dose: 80 mg Documented By: EDMOND Clopidogrel Bisulfate (Clopidogrel Bisulfate 75 Mg Tablet) 75 mg PO DAILY [facility] Last Admin: 04/26/22 08:05 Dose: 75 mg Documented By: EDMOND Doxycycline Monohydrate (Doxycycline Monohydrate 100 Mg Capsule) 100 mg PO BID [facility] Last Admin: 04/26/22 08:05 Dose: 100 mg Documented By: EDMOND Enoxaparin Sodium (Enoxaparin Sodium 40 Mg/0.4 Ml Syringe) 40 mg SUBCUT Q24H [facility] Last Admin: 04/25/22 21:23 Dose: 40 mg Documented By: MONI Fludrocortisone Acetate (Fludrocortisone Acetate 0.1 Mg Tablet) 0.2 mg PO DAILY [facility] Last Admin: 04/26/22 10:45 Dose: 0.2 mg Documented By: EDMOND Gabapentin (Gabapentin 400 Mg Capsule) 800 mg PO QID [facility] Last Admin: 04/26/22 08:05 Dose: 800 mg Documented By: EDMOND Ibuprofen (Ibuprofen 400 Mg Tablet) 400 mg PO Q6H PRN PRN Reason: Headache Last Admin: 04/26/22 06:03 Dose: 400 mg Documented By: MONI Melatonin (Melatonin 3 Mg Tablet) 6 mg PO BEDTIME PRN PRN Reason: Insomnia Last Admin: 04/11/22 00:48 Dose: 6 mg Documented By: JATINDER Midodrine (Midodrine Hcl 10 Mg Tablet) 10 mg PO TID [facility] Last Admin: 04/26/22 10:46 Dose: 10 mg Documented By: EDMOND Multivitamins/Vitamin C (Multivitamin Tablet) 1 tab PO DAILY [facility] Last Admin: 04/26/22 08:05 Dose: 1 tab Documented By: EDMOND Omeprazole (Omeprazole 20 Mg Capsule.) 20 mg PO DAILY@0630 [facility] Last Admin: 04/26/22 05:58 Dose: 20 mg Documented By: MONI Ondansetron HCl (Ondansetron Hcl 4 Mg/2 Ml Vial) 4 mg IVPUSH Q8H PRN PRN Reason: Nausea and Vomiting Last Admin: 04/18/22 13:48 Dose: 4 mg Documented By: LAURENT Pharmacy Consult (Consult Rx Perform Med Rec) 1 each MISCELLANE ONCE PRN PRN Reason: Consult order Sodium Chloride (0.9 % Sodium Chloride Flush 3 Ml Syringe) 3 ml IVFLUSH QSHIFT [facility] Last Admin: 04/26/22 08:06 Dose: Not Given Documented By: EDMOND Non-Admin Reason: No Access Sodium Chloride (Sodium Chloride Tab 1 Gm Tablet) 2 gm PO DAILY [facility] Last Admin: 04/26/22 08:50 Dose: Not Given Documented By: EDMOND Non-Admin Reason: hypertensive. said to hold. Labs CBC & Chem 7: 04/08/22 05:38 04/17/22 05:06 Assessment and Plan (1) Orthostatic hypotension dysautonomic syndrome: Status: Acute Plan 56-year-old female with a pertinent history of coronary artery disease status post stent, ETOH dependence, major depressive disorder, essential hypertension, mixed hyperlipidemia, peripheral neuropathy, morbid obesity and DM now resolved after 100lbs weight loss, who presented to the emergency department for evaluation of syncope. syncope due to orthostatic hypotension with supine hypertension contributing factors include: peripheral neuropathy from history of DM and ETOH dependence, recent weight loss, medication effect (coreg, cymbalta) coreg and cymbalta discontinued continue salt tablets, florinef, midodrine did not tolerate discontinuing gabapentin due to severe pain continue MARGO stockings, orthostatic precautions Low aldosterone level Nephrology planning for outpatient follow up for possible northera, 24hr bp monitor, hold nighttime BP meds when hypertensive would recommend positional change (sitting and standing) as opposed to antihypertensive, use hydralazine 10 if needed Keep head elevated at 35-35 degree angle at time of sleep for now CAD with history of ischemic cardiomyopathy now with recovered EF continue asa, plavix, statin cannot tolerate neurohormonals history of DM with diabetic neuropathy DM resolved with weight loss continue gabapentin for neuropathy ETOH dependence in remission DVT prophylaxis: Lovenox 40 mg daily DNR reason for continued hospitalization:awaiting SNF bed/auth Quality Stroke Does the patient have a stroke diagnosis?: No VTE Prior VTE?: No VTE Risk Level:: Medical - moderate - high VTE Device Contraindication: N/A - Device Ordered VTE Drug Contraindication: N/A - Med Ordered
--- NOTE | 2022-04-26 13:10 | MHC.CM.PN ---
EMR REVIEWED, PT REMAINS MEDICALLY CLEARED FOR D/C, STR BROAD BED SEARCH IN PROGRESS, NO BED OFFERS AT TIME OF THIS NOTE AND REFERRAL EXPANDED, CM WILL CONT TO FOLLOW REFERRAL AND D/C NEEDS.
--- NOTE | 2022-04-26 13:49 | MHC.CM.PN ---
[facility] OFFERING AND WILL GO FOR AUTH, [employer] WILL GIVE AUTH BY TOMORROW 04/27.
[2022-04-26] MEDS: NeoMY/Polymyx/Bacit/Ointment 14 GM Tube TOPICAL ×2 (17:24→20:48)
[2022-04-26] MEDS: Enoxaparin Sodium 40 MG/0.4 ML SYRINGE SUBCUT (20:47)
[2022-04-27] VITALS (7 sets, daily range): BP systolic 132–187; BP diastolic 70–109; PULSE 73–97; RESP 16–18; TEMP 36.2–36.8; O2SAT 98–100
[2022-04-27 05:50] LABS: Hematocrit 35.3 % (37.0-47.0); Hemoglobin 11.5 g/dl (12.0-16.0); Mean Corpuscular HGB Conc 32.6 g/dl (31.0-35.0); Mean Corpuscular Hemoglobin 30.6 pg (27.0-33.0); Mean Corpuscular Volume 93.9 fL (80.0-98.0); Platelet Count 253 X10*3/uL (160-400); Red Blood Count 3.76 X10*6/uL (4.20-5.50); Red Cell Distribution Width 13.5 % (11.0-16.0); White Blood Count 8.4 X10*3/uL (4.8-10.8)
[2022-04-27 06:02] LABS: Anion Gap 12 (12-20); Blood Urea Nitrogen 13 mg/dL (9-16); Calcium 9.2 mg/dL (8.4-10.2); Carbon Dioxide 27 mmol/L (22-29); Chloride 107 mmol/L (96-108); Creatinine Clr Calc Pharmacy 107.3; Estimated Glomerular Filt Rate > 60; Glucose Random 101 mg/dL (60-115); Potassium 3.9 mmol/L (3.3-5.1); Sodium 142 mmol/L (135-145)
[2022-04-27] MEDS: Omeprazole 20 MG CAPSULE.DR PO (06:32)
[2022-04-27] MEDS: Doxycycline Monohydrate 100 MG CAPSULE PO ×2 (09:01→20:12)
[2022-04-27] MEDS: Fludrocortisone Acetate 0.1 MG TABLET 0.2 MG PO (09:02)
[2022-04-27] MEDS: Aspirin Enteric Coated 81 MG TABLET.DR PO (09:02)
[2022-04-27] MEDS: Clopidogrel Bisulfate 75 MG TABLET PO (09:02)
[2022-04-27] MEDS: Multivitamin TABLET 1 TAB PO (09:02)
[2022-04-27] MEDS: Butalb/Acetamin/Caff 50/325/40 TABLET 1 TAB PO ×3 (09:02→20:12)
[2022-04-27] MEDS: Gabapentin 400 MG CAPSULE 800 MG PO ×4 (09:02→20:12)
[2022-04-27] MEDS: Atorvastatin Calcium 80 MG TABLET PO (09:02)
[2022-04-27] MEDS: Sodium Chloride Tab 1 GM TABLET 2 GM PO (09:02)
[2022-04-27] MEDS: NeoMY/Polymyx/Bacit/Ointment 14 GM Tube TOPICAL ×2 (09:08→20:12)
--- NOTE | 2022-04-27 10:01 | P.PNNP_ITS ---
Subjective Subjective Date of Service: 04/27/22 Principal diagnosis: Orthostatic hypotension and syncope Interval history: Seen ad examined, c/o migraine Physical Exam Vital Signs: Vital Signs: Last Vital Signs Temp 98.1 F 04/27/22 08:00 Pulse 81 04/27/22 08:00 Resp 17 04/27/22 08:00 BP 187/109 H 04/27/22 08:00 Pulse Ox 98 04/27/22 08:00 O2 Del Method 04/27/22 08:00 O2 Flow Rate 98 04/04/22 22:38 BMI result Body Mass Index 29.3 Const: Other: General: AO X 3, no acute distress Resp: CTA bilateral CVS: S1,S2,RRR GI: +BS, NT, no distention Skin: No rash Neuro: motor grossly intact Psych: appropriate affect General: cooperative, no acute distress, alert and awake Nutritional Ap pearance: well nourished Orientation/consciousness: patient oriented x3 Limitations: no limitations HEENT: Head: Yes normal to inspection and Yes atraumatic Ears: hearing grossly normal bilaterally and external ears normal General nose exam: Normal external nose present, no nasal discharge noted and no epistaxis Face and sinus: Yes normal facial exam, No abrasion and No laceration Mouth: Normal oral and palatal mucosa present, no drooling and no muffled voice Eyes: General: appearance normal, both eyes and all related structures Periorbital: periorbital findings normal Eyelids: Yes eyelids normal Conjunctivae: conjunctivae normal Pupils: Equal, round and reactive pupils present EOM: EOMs intact bilaterally Neck: Neck: Yes normal visual inspection, Yes full ROM, Yes no lymphadenopathy and Yes supple Chest: Chest palpation & inspection: normal inspection of the chest Resp: Effort & Inspection: normal respiratory effort and able to speak in complete sentences Auscultation: clear to auscultation bilaterally and diminished lung sounds Cardio: Rate: regular rate Rhythm: regular rhythm GI: Inspection: Yes normal to inspection Palpation (GI): Soft to palpation Neuro: General: patient oriented x3 and moves all extremities Cranial nerves: Yes Equal, round and reactive pupils present Cognition (Neuro): normal cognition Motor exam (neuro): 5/5 motor strength present throughout Sensory Exam: Normal double simultaneous stimulation for sensation Coordination: [id number] test normal Extrem: General: Yes normal to inspection, Yes full ROM and Yes capillary refill normal Psych: Appearance: grossly normal Mental Status: mental status grossly normal Affect: normal affect Attitude: cooperative Thought process: Normal thought process present Thought content: Normal thought content presen t Insight: Good insight present (Psych) Objective Data Labs CBC & Chem 7: 04/27/22 05:26 04/27/22 05:26 Labs: Laboratory Results - last 24 hr 04/27/22 04/27/22 05:26 05:26 WBC 8.4 RBC 3.76 L Hgb 11.5 L Hct 35.3 L MCV 93.9 MCH 30.6 MCHC 32.6 RDW 13.5 Plt Count 253 MPV 11.0 Absolute Nucleated RBC 0.000 Nucleated RBC % (auto) 0.0 Sodium 142 Potassium 3.9 Chloride 107 Carbon Dioxide 27 Anion Gap 12 BUN 13 Creatinine 0.67 Estim Creat Clear Calc 107.3 Estimated GFR > 60 Random Glucose 101 Calcium 9.2 Procedures Date of Service Date of Service: 04/27/22 Assessment & Plan Assessment and plan (1) Orthostatic hypotension: Status: Acute (2) HTN (hypertension): Status: Acute (3) CAD (coronary artery disease): Status: Acute Plan 56-year-old female with a pertinent history of coronary artery disease status post stent, major depressive disorder, essential hypertension, mixed hyperlipidemia, peripheral neuropathy who presents to the emergency department for evaluation of syncope. Supine HTN with severe symptomatic OH ( SHOH): very impressive drops in BP with upright position and supine severe Systolic HTN despite maximal Tx: midrdine and florinef REC: cont use leg stockings; cont use of midrodine and florinef and wll evaluate as outpt fro Northera ( Doxidropa); agree with xfer to acute rehab to help L/S changes to deal with SHOH Will consider short acting BP at bedtime--hydralazine 10 mg but still needs outpt ABPM to optimize BP management If supne or sitting BP markedly elveated then have her standup and check BP and if remains sustained elvated then consider short acting BP med--hydralazine 10mg Time Spent With Patient Time: Total time spent is greater than 50% in coordination of care (as documented) at patient's floor/unit and/or counseling patient: Progress Note: Quality Stroke Does the patient have a stroke diagnosis?: No
--- NOTE | 2022-04-27 12:55 | PC.NURSE ---
Patient reported an unwitnessed fall,states felt dizzy bending down and moving a chair, hit left eyebrow over a table and left knee. No visible injury, VS stable, alert and oriented, independent, low fall risk. Md Gregorio and nursing bonding supervisor aware. Patient made high fall risk, educated on being more careful when OOB. hx of positive ortho vs.
--- NOTE | 2022-04-27 13:45 | HO.PM.IMPN ---
Subjective Subjective Date of Service: 04/27/22 Interval History: the patient was seen and evaluated this morning Laying in bed, complaining of headache and elevated blood pressure readings had a fall next to her chair, no head injury, able to walk back to bed No reported other overnight events. Systemic review: No fever, chills or weakness No chest pain, palpitation No shortness of breath or coughing No abdominal pain, nausea or vomiting No urinary symptoms No reported rash Physical Exam Vital Signs: Vital Signs: Last Vital Signs Temp 97.2 F 04/27/22 11:50 Pulse 84 04/27/22 11:50 Resp 18 04/27/22 11:50 BP 159/91 H 04/27/22 11:50 Pulse Ox 100 04/27/22 11:50 O2 Del Method 04/27/22 11:50 O2 Flow Rate 98 04/04/22 22:38 BMI result Body Mass Index 29.3 Const: Other: Constitutional : Awake, interactive, not in distress Neck : Normal inspection, Supple Cardiovascular : RRR, no JVP, no lower extremity edema Respiratory : good bilateral air entry, no crackles, wheezes or rhonchi Gastrointestinal: soft, lax, Normal bowel sounds, Non tender Skin : Warm, Dry Neurological : Alert & oriented x3, No focal deficit , CN 2-12 within normal Objective Data Active Medications Acetaminophen (Acetaminophen 325 Mg Tablet) 650 mg PO Q6H PRN PRN Reason: Pain, Mild (Pain Scale 1-3) Last Admin: 04/07/22 11:41 Dose: 650 mg Documented By: PANCHITO Acetaminophen/Butalbital/Caffeine (Butalb/Acetamin/Caff 50/325/40 Tablet) 1 tab PO Q4H PRN PRN Reason: Headache Last Admin: 04/27/22 12:43 Dose: 1 tab Documented By: JUAN PABLO Aspirin (Aspirin Enteric Coated 81 Mg Tablet.) 81 mg PO DAILY [facility] Last Admin: 04/27/22 09:02 Dose: 81 mg Documented By: JUAN PABLO Atorvastatin Calcium (Atorvastatin Calcium 80 Mg Tablet) 80 mg PO DAILY [facility] Last Admin: 04/27/22 09:02 Dose: 80 mg Documented By: JUAN PABLO Clopidogrel Bisulfate (Clopidogrel Bisulfate 75 Mg Tablet) 75 mg PO DAILY [facility] Last Admin: 04/27/22 09:02 Dose: 75 mg Documented By: JUAN PABLO Doxycycline Monohydrate (Doxycycline Monohydrate 100 Mg Capsule) 100 mg PO BID [facility] Last Admin: 04/27/22 09:01 Dose: 100 mg Documented By: JUAN PABLO Enoxaparin Sodium (Enoxaparin Sodium 40 Mg/0.4 Ml Syringe) 40 mg SUBCUT Q24H [facility] Last Admin: 04/26/22 20:47 Dose: 40 mg Documented By: TAM Fludrocortisone Acetate (Fludrocortisone Acetate 0.1 Mg Tablet) 0.2 mg PO DAILY [facility] Last Admin: 04/27/22 09:02 Dose: 0.2 mg Documented By: JUAN PABLO Gabapentin (Gabapentin 400 Mg Capsule) 800 mg PO QID [facility] Last Admin: 04/27/22 12:41 Dose: 800 mg Documented By: JUAN PABLO Ibuprofen (Ibuprofen 400 Mg Tablet) 400 mg PO Q6H PRN PRN Reason: Headache Last Admin: 04/26/22 17:23 Dose: 400 mg Documented By: TAM Melatonin (Melatonin 3 Mg Tablet) 6 mg PO BEDTIME PRN PRN Reason: Insomnia Last Admin: 04/11/22 00:48 Dose: 6 mg Documented By: JATINDER Midodrine (Midodrine Hcl 10 Mg Tablet) 10 mg PO TID [facility] Last Admin: 04/27/22 09:07 Dose: Not Given Documented By: JUAN PABLO Non-Admin Reason: Elevated Blood Pressure Multivitamins/Vitamin C (Multivitamin Tablet) 1 tab PO DAILY [facility] Last Admin: 04/27/22 09:02 Dose: 1 tab Documented By: JUAN PABLO Neomycin/Polymyxin/Bacitracin (Neomy/Polymyx/Bacit/Ointment 14 Gm Tube) 1 gm TOPICAL BID [facility]; Protocol Last Admin: 04/27/22 09:08 Dose: 1 gm Documented By: JUAN PABLO Omeprazole (Omeprazole 20 Mg Capsule.) 20 mg PO DAILY@0630 [facility] Last Admin: 04/27/22 06:32 Dose: 20 mg Documented By: JUAN JOSE Ondansetron HCl (Ondansetron Hcl 4 Mg/2 Ml Vial) 4 mg IVPUSH Q8H PRN PRN Reason: Nausea and Vomiting Last Admin: 04/18/22 13:48 Dose: 4 mg Documented By: LAURENT Pharmacy Consult (Consult Rx Perform Med Rec) 1 each MISCELLANE ONCE PRN PRN Reason: Consult order Sodium Chloride (0.9 % Sodium Chloride Flush 3 Ml Syringe) 3 ml IVFLUSH QSHIFT [facility] Last Admin: 04/27/22 09:03 Dose: Not Given Documented By: JUAN PABLO Non-Admin Reason: No Access Sodium Chloride (Sodium Chloride Tab 1 Gm Tablet) 2 gm PO DAILY [facility] Last Admin: 04/27/22 09:02 Dose: 2 gm Documented By: JUAN PABLO Labs CBC & Chem 7: 04/27/22 05:26 04/27/22 05:26 Labs: Laboratory Results - last 24 hr 04/27/22 04/27/22 05:26 05:26 MCV 93.9 MCH 30.6 MCHC 32.6 RDW 13.5 Plt Count 253 MPV 11.0 Absolute Nucleated RBC 0.000 Nucleated RBC % (auto) 0.0 Anion Gap 12 Estim Creat Clear Calc 107.3 Estimated GFR > 60 Random Glucose 101 Calcium 9.2 Assessment and Plan (1) Orthostatic hypotension dysautonomic syndrome: Status: Acute Plan 56-year-old female with a pertinent history of coronary artery disease status post stent, ETOH dependence, major depressive disorder, essential hypertension, mixed hyperlipidemia, peripheral neuropathy, morbid obesity and DM now resolved after 100lbs weight loss, who presented to the emergency department for evaluation of syncope. syncope due to orthostatic hypotension with supine hypertension contributing factors include: peripheral neuropathy from history of DM and ETOH dependence, recent weight loss, medication effect (coreg, cymbalta) coreg and cymbalta discontinued continue salt tablets, florinef, midodrine did not tolerate discontinuing gabapentin due to severe pain continue MARGO stockings, orthostatic precautions Low aldosterone level Nephrology planning for outpatient follow up for possible northera, 24hr bp monitor, hold nighttime BP meds when hypertensive would recommend positional change (sitting and standing) as opposed to antihypertensive, use hydralazine 10 if needed Keep head elevated at 35-35 degree angle at time of sleep for now headache hx of migraine Fiorecet PRN CAD with history of ischemic cardiomyopathy now with recovered EF continue asa, plavix, statin cannot tolerate neurohormonals history of DM with diabetic neuropathy DM resolved with weight loss continue gabapentin for neuropathy ETOH dependence in remission DVT prophylaxis: Lovenox 40 mg daily DNR reason for continued hospitalization:awaiting SNF bed/auth Quality Stroke Does the patient have a stroke diagnosis?: No VTE Prior VTE?: No VTE Risk Level:: Medical - moderate - high VTE Device Contraindication: N/A - Device Ordered VTE Drug Contraindication: N/A - Med Ordered
--- NOTE | 2022-04-27 14:51 | MHC.CM.PN ---
[facility] INDICATED THEY WOULD OFFER PT A BED AND SUBMIT FOR AUTH YESTERDAY TODAY, THEY HAVE INFORMED THEY DO NOT HAVE A FEMALE BED CM RESENT THE REFERRALS MENA FROM [facility] CONTACTED AND INDICATED SHE COULD TAKE PT AT [facility] SHE IS AWARE [facility] MAY HAVE SUBMITTED FOR AUTH AT HER DIRECTION, HAS LEFT A MESSAGE FOR [facility] LIAISON REQUESTING THEY RESCIND THE AUTH REQUEST SO THAT [facility] CAN SUBMIT MIR WILL REQUEST AUTH TODAY AND SAYS SHE SHOULD HAVE IT BY NO LATER THAN EARLY TOMORROW SHE HAS REQUESTED AN UPDATED MED LIST, COVID SWAB, AND LESS THAN 30 PRIOR TO DC
--- NOTE | 2022-04-27 18:35 | PC.NURSE ---
patient noted leaking from an ice pack while holding it on forehead for headache. some fluid got to patients eye, immediately washed out, no further burning or eye abnormality noted. Patient rechecked few hrs after with no complaints.
[2022-04-27] MEDS: Midodrine HCl 10 MG TABLET PO (20:12)
[2022-04-27] MEDS: Enoxaparin Sodium 40 MG/0.4 ML SYRINGE SUBCUT (20:12)
[2022-04-28] VITALS (9 sets, daily range): BP systolic 132–180; BP diastolic 76–94; PULSE 78–104; RESP 17–20; TEMP 36.2–36.6; O2SAT 96–100
[2022-04-28] MEDS: Omeprazole 20 MG CAPSULE.DR PO (05:40)
[2022-04-28] MEDS: Gabapentin 400 MG CAPSULE 800 MG PO ×4 (07:25→20:07)
[2022-04-28] MEDS: Doxycycline Monohydrate 100 MG CAPSULE PO ×2 (07:26→20:07)
[2022-04-28] MEDS: Clopidogrel Bisulfate 75 MG TABLET PO (07:26)
[2022-04-28] MEDS: Aspirin Enteric Coated 81 MG TABLET.DR PO (07:26)
[2022-04-28] MEDS: Atorvastatin Calcium 80 MG TABLET PO (07:26)
[2022-04-28] MEDS: Multivitamin TABLET 1 TAB PO (07:26)
[2022-04-28] MEDS: Fludrocortisone Acetate 0.1 MG TABLET PO (07:26)
[2022-04-28] MEDS: NeoMY/Polymyx/Bacit/Ointment 14 GM Tube TOPICAL ×2 (07:28→20:10)
[2022-04-28] MEDS: Butalb/Acetamin/Caff 50/325/40 TABLET 1 TAB PO ×2 (11:56→16:21)
--- NOTE | 2022-04-28 12:36 | MHC.CM.PN ---
EMR REVIEWED, [facility] AWAITING AUTH FROM PT'S INSURANCE [facility] [employer], TRANSPORT WILL BE ARRANGE W/GEREMIAS WHEN AUTH RECEIVED.
--- NOTE | 2022-04-28 16:48 | P.PNIM_ITS ---
Subjective Subjective Date of Service: 04/28/22 Interval History: the patient was seen and evaluated this morning Laying in bed, complaining of headache and elevated blood pressure readings had a fall next to her chair, no head injury, able to walk back to bed No reported other overnight events. Systemic review: No fever, chills or weakness No chest pain, palpitation No shortness of breath or coughing No abdominal pain, nausea or vomiting No urinary symptoms No reported rash Physical Exam Vital Signs: Vital Signs: Last Vital Signs Temp 97.8 F 04/28/22 12:00 Pulse 94 04/28/22 12:00 Resp 19 04/28/22 12:00 BP 180/90 H 04/28/22 12:00 Pulse Ox 97 04/28/22 12:00 O2 Del Method 04/28/22 12:00 O2 Flow Rate 98 04/04/22 22:38 BMI result Body Mass Index 29.3 Const: Other: Constitutional : Awake, interactive, not in distress Neck : Normal inspection, Supple Cardiovascular : RRR, no JVP, no lower extremity edema Respiratory : good bilateral air entry, no crackles, wheezes or rhonchi Gastrointestinal: soft, lax, Normal bowel sounds, Non tender Skin : Warm, Dry Neurological : Alert & oriented x3, No focal deficit , CN 2-12 within normal Objective Data Active Medications Acetaminophen (Acetaminophen 325 Mg Tablet) 650 mg PO Q6H PRN PRN Reason: Pain, Mild (Pain Scale 1-3) Last Admin: 04/07/22 11:41 Dose: 650 mg Documented By: PANCHITO Acetaminophen/Butalbital/Caffeine (Butalb/Acetamin/Caff 50/325/40 Tablet) 1 tab PO Q4H PRN PRN Reason: Headache Last Admin: 04/28/22 16:21 Dose: 1 tab Documented By: JUAN PABLO Aspirin (Aspirin Enteric Coated 81 Mg Tablet.) 81 mg PO DAILY [facility] Last Admin: 04/28/22 07:26 Dose: 81 mg Documented By: JUAN PABLO Atorvastatin Calcium (Atorvastatin Calcium 80 Mg Tablet) 80 mg PO DAILY [facility] Last Admin: 04/28/22 07:26 Dose: 80 mg Documented By: JUAN PABLO Clopidogrel Bisulfate (Clopidogrel Bisulfate 75 Mg Tablet) 75 mg PO DAILY [facility] Last Admin: 04/28/22 07:26 Dose: 75 mg Documented By: JUAN PABLO Doxycycline Monohydrate (Doxycycline Monohydrate 100 Mg Capsule) 100 mg PO BID [facility] Last Admin: 04/28/22 07:26 Dose: 100 mg Documented By: JUAN PABLO Enoxaparin Sodium (Enoxaparin Sodium 40 Mg/0.4 Ml Syringe) 40 mg SUBCUT Q24H [facility] Last Admin: 04/27/22 20:12 Dose: 40 mg Documented By: VANESSA Fludrocortisone Acetate (Fludrocortisone Acetate 0.1 Mg Tablet) 0.1 mg PO DAILY [facility] Last Admin: 04/28/22 07:26 Dose: 0.1 mg Documented By: JUAN PABLO Gabapentin (Gabapentin 400 Mg Capsule) 800 mg PO QID [facility] Last Admin: 04/28/22 16:21 Dose: 800 mg Documented By: JUAN PABLO Ibuprofen (Ibuprofen 400 Mg Tablet) 400 mg PO Q6H PRN PRN Reason: Headache Last Admin: 04/26/22 17:23 Dose: 400 mg Documented By: TAM Melatonin (Melatonin 3 Mg Tablet) 6 mg PO BEDTIME PRN PRN Reason: Insomnia Last Admin: 04/11/22 00:48 Dose: 6 mg Documented By: JATINDER Midodrine (Midodrine Hcl 10 Mg Tablet) 10 mg PO TID [facility] Last Admin: 04/28/22 15:30 Dose: Not Given Documented By: JUAN PABLO Non-Admin Reason: Elevated Blood Pressure Multivitamins/Vitamin C (Multivitamin Tablet) 1 tab PO DAILY [facility] Last Admin: 04/28/22 07:26 Dose: 1 tab Documented By: JUAN PABLO Neomycin/Polymyxin/Bacitracin (Neomy/Polymyx/Bacit/Ointment 14 Gm Tube) 1 gm TOPICAL BID [facility]; Protocol Last Admin: 04/28/22 07:28 Dose: 1 gm Documented By: JUAN PABLO Omeprazole (Omeprazole 20 Mg Capsule.Dr) 20 mg PO DAILY@0630 [facility] Last Admin: 04/28/22 05:40 Dose: 20 mg Documented By: VANESSA Ondansetron HCl (Ondansetron Hcl 4 Mg/2 Ml Vial) 4 mg IVPUSH Q8H PRN PRN Reason: Nausea and Vomiting Last Admin: 04/18/22 13:48 Dose: 4 mg Documented By: LAURENT Pharmacy Consult (Consult Rx Perform Med Rec) 1 each MISCELLANE ONCE PRN PRN Reason: Consult order Sodium Chloride (0.9 % Sodium Chloride Flush 3 Ml Syringe) 3 ml IVFLUSH QSHIFT [facility] Last Admin: 04/28/22 15:30 Dose: Not Given Documented By: JUAN PABLO Non-Admin Reason: No Access Sodium Chloride (Sodium Chloride Tab 1 Gm Tablet) 2 gm PO DAILY [facility] Last Admin: 04/28/22 07:28 Dose: Not Given Documented By: JUAN PABLO Non-Admin Reason: will reassess later Labs CBC & Chem 7: 04/27/22 05:26 04/27/22 05:26 Assessment and Plan (1) Orthostatic hypotension dysautonomic syndrome: Status: Acute Plan 56-year-old female with a pertinent history of coronary artery disease status post stent, ETOH dependence, major depressive disorder, essential hypertension, mixed hyperlipidemia, peripheral neuropathy, morbid obesity and DM now resolved after 100lbs weight loss, who presented to the emergency department for evaluation of syncope. syncope due to orthostatic hypotension with supine hypertension contributing factors include: peripheral neuropathy from history of DM and ETOH dependence, recent weight loss, medication effect (coreg, cymbalta) coreg and cymbalta discontinued continue salt tablets, florinef, midodrine did not tolerate discontinuing gabapentin due to severe pain continue MARGO stockings, orthostatic precautions Low aldosterone level Nephrology planning for outpatient follow up for possible northera, 24hr bp monitor, hold nighttime BP meds when hypertensive would recommend positional change (sitting and standing) as opposed to antihypertensive, use hydralazine 10 if needed Keep head elevated at 35-35 degree angle at time of sleep for now headache hx of migraine Fiorecet PRN CAD with history of ischemic cardiomyopathy now with recovered EF continue asa, plavix, statin cannot tolerate neurohormonals history of DM with diabetic neuropathy DM resolved with weight loss continue gabapentin for neuropathy ETOH dependence in remission DVT prophylaxis: Lovenox 40 mg daily DNR reason for continued hospitalization:awaiting SNF bed/auth Quality Stroke Does the patient have a stroke diagnosis?: No VTE Prior VTE?: No VTE Risk Level:: Medical - moderate - high VTE Device Contraindication: N/A - Device Ordered VTE Drug Contraindication: N/A - Med Ordered
[2022-04-28] MEDS: Enoxaparin Sodium 40 MG/0.4 ML SYRINGE SUBCUT (20:06)
[2022-04-28] MEDS: Midodrine HCl 5 MG TABLET PO (20:07)
[2022-04-29] VITALS (10 sets, daily range): BP systolic 122–169; BP diastolic 63–94; PULSE 77–110; RESP 15–20; TEMP 35.8–36.6; O2SAT 95–100
[2022-04-29] MEDS: Omeprazole 20 MG CAPSULE.DR PO (06:17)
[2022-04-29] MEDS: Doxycycline Monohydrate 100 MG CAPSULE PO ×2 (08:08→19:46)
[2022-04-29] MEDS: Sodium Chloride Tab 1 GM TABLET 2 GM PO (08:08)
[2022-04-29] MEDS: Clopidogrel Bisulfate 75 MG TABLET PO (08:08)
[2022-04-29] MEDS: Gabapentin 400 MG CAPSULE 800 MG PO ×4 (08:09→19:46)
[2022-04-29] MEDS: Atorvastatin Calcium 80 MG TABLET PO (08:09)
[2022-04-29] MEDS: Fludrocortisone Acetate 0.1 MG TABLET PO (08:09)
[2022-04-29] MEDS: Multivitamin TABLET 1 TAB PO (08:09)
[2022-04-29] MEDS: Aspirin Enteric Coated 81 MG TABLET.DR PO (08:09)
[2022-04-29] MEDS: NeoMY/Polymyx/Bacit/Ointment 14 GM Tube TOPICAL ×2 (08:13→19:48)
[2022-04-29] MEDS: Butalb/Acetamin/Caff 50/325/40 TABLET 1 TAB PO ×3 (09:17→19:48)
[2022-04-29] MEDS: Midodrine HCl 10 MG TABLET PO ×3 (09:17→19:46)
--- NOTE | 2022-04-29 15:01 | P.PNIM_ITS ---
Subjective Subjective Date of Service: 04/29/22 Interval History: the patient was seen and evaluated this morning Laying in bed, complaining of headache and elevated blood pressure readings had a fall next to her chair, no head injury, able to walk back to bed No reported other overnight events. Systemic review: No fever, chills or weakness No chest pain, palpitation No shortness of breath or coughing No abdominal pain, nausea or vomiting No urinary symptoms No reported rash Physical Exam Vital Signs: Vital Signs: Last Vital Signs Temp 96.4 F L 04/29/22 14:55 Pulse 79 04/29/22 14:55 Resp 18 04/29/22 14:55 BP 152/80 H 04/29/22 14:55 Pulse Ox 98 04/29/22 14:55 O2 Del Method 04/29/22 14:55 O2 Flow Rate 98 04/04/22 22:38 BMI result Body Mass Index 29.3 Const: Other: Constitutional : Awake, interactive, not in distress Neck : Normal inspection, Supple Cardiovascular : RRR, no JVP, no lower extremity edema Respiratory : good bilateral air entry, no crackles, wheezes or rhonchi Gastrointestinal: soft, lax, Normal bowel sounds, Non tender Skin : Warm, Dry Neurological : Alert & oriented x3, No focal deficit , CN 2-12 within normal Objective Data Active Medications Acetaminophen (Acetaminophen 325 Mg Tablet) 650 mg PO Q6H PRN PRN Reason: Pain, Mild (Pain Scale 1-3) Last Admin: 04/07/22 11:41 Dose: 650 mg Documented By: PANCHITO Acetaminophen/Butalbital/Caffeine (Butalb/Acetamin/Caff 50/325/40 Tablet) 1 tab PO Q4H PRN PRN Reason: Headache Last Admin: 04/29/22 13:51 Dose: 1 tab Documented By: LIZABETH Aspirin (Aspirin Enteric Coated 81 Mg Tablet.) 81 mg PO DAILY [facility] Last Admin: 04/29/22 08:09 Dose: 81 mg Documented By: LIZABETH Atorvastatin Calcium (Atorvastatin Calcium 80 Mg Tablet) 80 mg PO DAILY [facility] Last Admin: 04/29/22 08:09 Dose: 80 mg Documented By: LIZABETH Clopidogrel Bisulfate (Clopidogrel Bisulfate 75 Mg Tablet) 75 mg PO DAILY [facility] Last Admin: 04/29/22 08:08 Dose: 75 mg Documented By: LIZABETH Doxycycline Monohydrate (Doxycycline Monohydrate 100 Mg Capsule) 100 mg PO BID [facility] Last Admin: 04/29/22 08:08 Dose: 100 mg Documented By: LIZABETH Enoxaparin Sodium (Enoxaparin Sodium 40 Mg/0.4 Ml Syringe) 40 mg SUBCUT Q24H [facility] Last Admin: 04/28/22 20:06 Dose: 40 mg Documented By: FELIZ Fludrocortisone Acetate (Fludrocortisone Acetate 0.1 Mg Tablet) 0.1 mg PO DAILY [facility] Last Admin: 04/29/22 08:09 Dose: 0.1 mg Documented By: LIZABETH Gabapentin (Gabapentin 400 Mg Capsule) 800 mg PO QID [facility] Last Admin: 04/29/22 12:11 Dose: 800 mg Documented By: LIZABETH Ibuprofen (Ibuprofen 400 Mg Tablet) 400 mg PO Q6H PRN PRN Reason: Headache Last Admin: 04/26/22 17:23 Dose: 400 mg Documented By: TAM Melatonin (Melatonin 3 Mg Tablet) 6 mg PO BEDTIME PRN PRN Reason: Insomnia Last Admin: 04/11/22 00:48 Dose: 6 mg Documented By: JATINDER Midodrine (Midodrine Hcl 10 Mg Tablet) 10 mg PO TID [facility] Last Admin: 04/29/22 09:17 Dose: 10 mg Documented By: LIZABETH Multivitamins/Vitamin C (Multivitamin Tablet) 1 tab PO DAILY [facility] Last Admin: 04/29/22 08:09 Dose: 1 tab Documented By: LIZABETH Neomycin/Polymyxin/Bacitracin (Neomy/Polymyx/Bacit/Ointment 14 Gm Tube) 1 gm TOPICAL BID [facility]; Protocol Last Admin: 04/29/22 08:13 Dose: 1 gm Documented By: LIZABETH Omeprazole (Omeprazole 20 Mg Capsule.Dr) 20 mg PO DAILY@0630 [facility] Last Admin: 04/29/22 06:17 Dose: 20 mg Documented By: FELIZ Ondansetron HCl (Ondansetron Hcl 4 Mg/2 Ml Vial) 4 mg IVPUSH Q8H PRN PRN Reason: Nausea and Vomiting Last Admin: 04/18/22 13:48 Dose: 4 mg Documented By: LAURENT Pharmacy Consult (Consult Rx Perform Med Rec) 1 each MISCELLANE ONCE PRN PRN Reason: Consult order Sodium Chloride (0.9 % Sodium Chloride Flush 3 Ml Syringe) 3 ml IVFLUSH QSHIFT [facility] Last Admin: 04/29/22 08:09 Dose: Not Given Documented By: LIZABETH Non-Admin Reason: No Access Sodium Chloride (Sodium Chloride Tab 1 Gm Tablet) 2 gm PO DAILY [facility] Last Admin: 04/29/22 08:08 Dose: 2 gm Documented By: LIZABETH Labs CBC & Chem 7: 04/27/22 05:26 04/27/22 05:26 Assessment and Plan (1) Orthostatic hypotension dysautonomic syndrome: Status: Acute Plan 56-year-old female with a pertinent history of coronary artery disease status post stent, ETOH dependence, major depressive disorder, essential hypertension, mixed hyperlipidemia, peripheral neuropathy, morbid obesity and DM now resolved after 100lbs weight loss, who presented to the emergency department for evaluation of syncope. syncope due to orthostatic hypotension with supine hypertension contributing factors include: peripheral neuropathy from history of DM and ETOH dependence, recent weight loss, medication effect (coreg, cymbalta) coreg and cymbalta discontinued continue salt tablets, florinef, midodrine did not tolerate discontinuing gabapentin due to severe pain continue MARGO stockings, orthostatic precautions Low aldosterone level Nephrology planning for outpatient follow up for possible northera, 24hr bp monitor, hold nighttime BP meds when hypertensive would recommend positional change (sitting and standing) as opposed to antihypertensive, use hydralazine 10 if needed Keep head elevated at 35-35 degree angle at time of sleep for now headache hx of migraine Fiorecet PRN CAD with history of ischemic cardiomyopathy now with recovered EF continue asa, plavix, statin cannot tolerate neurohormonals history of DM with diabetic neuropathy DM resolved with weight loss continue gabapentin for neuropathy ETOH dependence in remission DVT prophylaxis: Lovenox 40 mg daily DNR reason for continued hospitalization:awaiting SNF bed/auth Quality Stroke Does the patient have a stroke diagnosis?: No VTE Prior VTE?: No VTE Risk Level:: Medical - moderate - high VTE Device Contraindication: N/A - Device Ordered VTE Drug Contraindication: N/A - Med Ordered
[2022-04-29] MEDS: Enoxaparin Sodium 40 MG/0.4 ML SYRINGE SUBCUT (19:46)
[2022-04-30 03:40] VITALS: BP 126/74; PULSE 78; RESP 18; TEMP 36; O2SAT 98
[2022-04-30] MEDS: Omeprazole 20 MG CAPSULE.DR PO (06:18)
[2022-04-30 07:03] VITALS: BP 141/79; PULSE 83; RESP 18; TEMP 36.6; O2SAT 100
[2022-04-30] MEDS: Butalb/Acetamin/Caff 50/325/40 TABLET 1 TAB PO (08:48)
[2022-04-30] MEDS: Atorvastatin Calcium 80 MG TABLET PO (08:48)
[2022-04-30] MEDS: Sodium Chloride Tab 1 GM TABLET 2 GM PO (08:48)
[2022-04-30] MEDS: Midodrine HCl 10 MG TABLET PO (08:48)
[2022-04-30] MEDS: Multivitamin TABLET 1 TAB PO (08:48)
[2022-04-30] MEDS: Fludrocortisone Acetate 0.1 MG TABLET PO (08:48)
[2022-04-30] MEDS: Clopidogrel Bisulfate 75 MG TABLET PO (08:48)
[2022-04-30] MEDS: Doxycycline Monohydrate 100 MG CAPSULE PO (08:48)
[2022-04-30] MEDS: Aspirin Enteric Coated 81 MG TABLET.DR PO (08:48)
[2022-04-30] MEDS: Gabapentin 400 MG CAPSULE 800 MG PO (08:48)
[2022-04-30 10:00] VITALS: BP 179/102; PULSE 82
[2022-04-30 11:26] VITALS: BP 152/90; BP 170/90; PULSE 88; PULSE 97
[2022-04-30 11:27] VITALS: BP 179/100; PULSE 75; RESP 18; TEMP 35.8
--- NOTE | 2022-04-30 12:38 | PC.NURSE ---
0850: When assessing pt, pt stated she didn't get much sleep last night and had a migraine. Dr Gregorio in to see pt at this time as well. Pt denies dizziness upon ambulation. Pt informed of plan by . This RN and MD told pt we would allow to rest at this time. Pt requested door to be closed, lights off
--- NOTE | 2022-04-30 13:11 | P.DS_ITS ---
DS: Providers Provider Date of Service: 04/30/22 Date of admission: 04/05/22 01:00 Primary care physician: Kristen Paez MD Consults: 04/09/22 08:20 Consult to Nephrology Routine Consulting Provider: Soren Diamond Reason for consultation: ortostatic hypotension Has provider been notified: No 04/14/22 15:37 Consult to Psychiatry Routine Consulting Provider: Psych Covering Reason for consultation: orthosatasis -? related to psych meds -cymbalata Has provider been notified: No 04/22/22 09:57 Consult to Cardiology Routine Consulting Provider: John Goodson Reason for consultation: orthostatic hypotension Has provider been notified: No DS: Diagnosis Discharge Diagnosis (1) Orthostatic hypotension dysautonomic syndrome: Status: Acute (2) Syncope: Status: Acute (3) Neuropathy: Status: Acute DS: Summary Hospital Course Hospital Course: Admission note HPI This is a 56-year-old female with a pertinent history of coronary artery disease status post stent, major depressive disorder, essential hypertension, mixed hyperlipidemia, peripheral neuropathy who presents to the emergency department f or evaluation of syncope.? Patient states she has had 4 episodes of syncope/near syncope in the last 2 weeks.? Her last episode was on 04/02, when she tried to get up from toilet seat and lost consciousness.? She fell with her face on the bathtub.? Patient states she lost consciousness for seconds .? No tongue bite, postictal confusion, rhythmic jerking movement of extremities.? Patient states she has had dizziness every time she tries to get up from sitting position that has been ongoing for the last 3 weeks.? Patient recently started carvedilol about 1 month ago for elevated blood pressure.? No other change in medications.? Denies vomiting, diarrhea or volume loss.? No palpitations, chest discomfort, shortness of breath.? Patient is worried about her falls and hence decided to present to the ER. In the emergency department, orthostatic vital signs were positive even after IV fluid resuscitation. Hospital course The patient presented with syncope due to orthostatic hypotension with supine hypertension. contributing factors include: peripheral neuropathy from history of DM and ETOH dependence, recent weight loss, medication effect (coreg, cymbalta). coreg and cymbalta discontinued. Started on midodrine, Florinef and salt tablets with good response as orthostasis symptoms resolved and the patient was able to ambulate with blood pressure readings going to the higher end rather than low end. Maintaining her blood pressure upon standing. Evaluated by Nephrology team who plan for outpatient follow-up for possible northera. when hypertensive would recommend positional change (sitting and standing) as opposed to antihypertensive. Keep head elevated at 35-35 degree angle at time of sleep. The patient was waiting SNF bed but insurance authorization did not come. She decided to leave against medical advice associated wrist and left the hospital. I spoke with her in person at the door of the hospital to convince her to come back, explained to her the risk of leaving without taking her medications including fall, injuries and possible but she refused and walked away. Will send leidy and Ross scripts to her pharmacy. Time Spent with Patient Time attestation: Total time spent providing and/or coordinating discharge services: Discharge coordination time: Greater than 30 minutes Quality: Safe Use of Opioids Does Pt have an Active Cancer Diagnosis on the Problem List?: No Quality: Stroke Does the patient have a stroke diagnosis?: No Physical Exam Vital Signs: Vital Signs: Last Vital Signs Temp 96.4 F L 04/30/22 11:27 Pulse 75 04/30/22 11:27 Resp 18 04/30/22 11:27 BP 179/100 H 04/30/22 11:27 Pulse Ox 100 04/30/22 07:03 O2 Del Method 04/30/22 07:03 O2 Flow Rate 98 04/04/22 22:38 BMI result Body Mass Index 29.3 Const: Other: Constitutional : Awake, interactive, not in distress Neck : Normal inspection, Supple Cardiovascular : RRR, no JVP, no lower extremity edema Respiratory : good bilateral air entry, no crackles, wheezes or rhonchi Gastrointestinal: soft, lax, Normal bowel sounds, Non tender Skin : Warm, Dry Neurological : Alert & oriented x3, No focal deficit , CN 2-12 within normal DS: Data Imaging Chest x-ray: Radiologist's impression: ITS Impressions Chest X-Ray 04/04/22 12:35 IMPRESSION: No acute disease Head CT 04/04/22 12:45 IMPRESSION: No acute intracranial pathology. Stable moderate to severe diffuse white matter changes. Statistically this relates to chronic small vessel ischemic disease, however other etiologies such as demyelinating disease could also be contributing.. Discharge Plan Discharge Patient Disposition: Left Against Medical Advice Discharge Diagnosis: Orthostatic hypotension Referrals: Kristen Paez MD [Primary Care Provider] - 1 Week Discharge Medications: No Action duloxetine 60 mg capsule,delayed release(DR/EC) 60 mg PO DAILY Qty: 90 0RF aspirin 81 mg tablet,delayed release (DR/EC) 81 mg PO DAILY Qty: 90 0RF gabapentin 400 mg capsule 800 mg PO QID (DME) blood pressure monitor Kit See Rx Instructions .ROUTE .MEDSUPPLY Qty: 1 0RF Rx Instructions: BP MONITOR [id number] fum-folic ac 7.5 mg iron-400 mcg tablet 1 tab PO DAILY atorvastatin 80 mg tablet 80 mg PO DAILY Qty: 90 3RF carvedilol 25 mg tablet 25 mg PO BID Qty: 180 3RF clopidogrel 75 mg tablet 75 mg PO DAILY Qty: 90 3RF pantoprazole 20 mg tablet,delayed release (DR/EC) 20 mg PO DAILY Qty: 90 3RF Discharge Orders: Discharge Order (Routine); Ordered 04/30/22 Ordered By: Leisa Gregorio Care Plan Goals: . Health Concerns: . Plan of Treatment: . Assessment: AMA Discharge Date/Time: 04/30/22 12:54
--- NOTE | 2022-04-30 18:02 | PC.NURSE ---
1500: Patient belongings found in room- glasses, bracelet, brush, pick, exercise bands and finger splint brought to pt in ED by pt rep Jackie Eisenberg
== END 2022-04-30 12:54 | disposition left against medical advice (07) | DRG 207 ==
LOC: HO.ED 04-05 00:12 → HO.EDOVER 04-05 01:19 → HO.S3 04-05 14:42
PROVIDERS: Hospitalist; Internal Medicine; Physician Assistant Medical; Admitting Provider Student in an Organized Health Care Education/Training Program; Emergency Provider Emergency Medicine; PCP Internal Medicine; Visit Provider Student in an Organized Health Care Education/Training Program
DX: I95.2 Hypotension due to drugs (principal); E11.42 Type 2 diabetes mellitus with diabetic polyneuropathy; T44.7X5A Adverse effect of beta-adrenoreceptor antagonists, initial encounter; E78.2 Mixed hyperlipidemia; I25.10 Atherosclerotic heart disease of native coronary artery without angina pectoris; K21.9 Gastro-esophageal reflux disease without esophagitis; I10 Essential (primary) hypertension; F32.9 Major depressive disorder, single episode, unspecified; F10.21 Alcohol dependence, in remission; I25.5 Ischemic cardiomyopathy; G90.1 Familial dysautonomia [Riley-Day]; Z66 Do not resuscitate; Z20.822 Contact with and (suspected) exposure to COVID-19; Z95.5 Presence of coronary angioplasty implant and graft; Z87.891 Personal history of nicotine dependence; Z88.6 Allergy status to analgesic agent; Z88.8 Allergy status to other drugs, medicaments and biological substances; Z79.02 Long term (current) use of antithrombotics/antiplatelets; Z79.82 Long term (current) use of aspirin; Z79.899 Other long term (current) drug therapy
CPT/HCPCS: 36415; 70450; 71046; 80048; 80053; 80076; 82088; 82533; 83690; 83735; 84484; 85025; 85027; 87635; 87798; 87801; 93005; 93306; 97110; 97116; 97162; 97166; 97530; 99285; J1650; J1885; J2405; Q9957

== ENCOUNTER 2022-04-30 12:57 | Emergency (ER) | payer OTHER, SELFPAY ==
[2022-04-30 13:04] VITALS: BP 187/113; PULSE 123; RESP 28; TEMP 36.6; O2SAT 100; BMI 28.8
--- NOTE | 2022-04-30 13:39 | ED.FALL ---
HPI - Fall General Chief Complaint: Dyspnea Stated Complaint: sob, low bp Time Seen by Provider: 04/30/22 13:14 Source: patient Mode of arrival: ambulatory Limitations: no limitations History of Present Illness HPI Narrative: 56-year-old female who presents emergency department for evaluation of a fall. The patient was a hospitalized patient here at [facility] from 04/04/2022 until today 04/30/2022 when she eloped from the hospital. The patient was initially admitted for multiple syncopal episodes and a fall with injuries to her chest wall. Patient was found to have orthostatic hypotension with supine hypertension and significant peripheral neuropathy secondary to diabetes mellitus. The patient states that she was frustrated that her blood pressure was often low and often high and plan had been to get her into a nursing facility for rehab however this did happen. According to the discharge note, the patient was waiting for a nursing home facility bed but insurance authorization did not come through. According to the discharge note, the patient left against medical advice. The patient states that she was dressed and walked out of the hospital without getting any of her discharge paperwork or getting her medications arranged for her. She states that she did not get off hospital popped ready and secondary to her peripheral neuropathy she tripped over some leaves falling to the ground. She denies any injury from the fall. He states that a bystander helped her up and walked her back in to the hospital emergency department entrance. Patient states that she has no injuries from her fall when she has no complaints. Patient states that she would be willing to come back into the hospital. Related Data Home Medications Medication Instructions Recorded Confirmed bnkovpyopzek-[id number] 1 tab PO DAILY 03/01/22 04/05/22 fumarate 7.5 mg-folic acid 400 mcg tablet gabapentin 400 mg capsule 800 mg PO QID 04/05/22 04/05/22 Previous Rx's Medication Instructions Recorded blood pressure monitor #1 ea 04/29/20 atorvastatin 80 mg tablet 80 mg PO DAILY #90 tabs 03/01/22 carvedilol 25 mg tablet 25 mg PO BID #180 tabs 03/01/22 clopidogrel 75 mg tablet 75 mg PO DAILY #90 tabs 03/01/22 pantoprazole 20 mg tablet,delayed 20 mg PO DAILY #90 tabs 03/01/22 release aspirin 81 mg tablet,delayed 81 mg PO DAILY #90 tabs 03/13/22 release duloxetine 60 mg capsule,delayed 60 mg PO DAILY #90 caps 03/13/22 release Allergies Allergy/AdvReac Type Severity Reaction Status Date / Time aspirin [ASPIRIN] Allergy Unknown SENSITIVITY Verified 04/30/22 13:04 lisinopril Allergy Unknown falls, Verified 04/30/22 13:04 muscle weakness Review of Systems Review of Systems: Yes all other systems are reviewed and are negative [facility] Past Medical History Medical History CAD (coronary artery disease) Cardiomyopathy Depression Dyslipidemia GERD (gastroesophageal reflux disease) History of mammogram HTN (hypertension) Hyperglycemia Neuropathy Normal Pap smear Peripheral neuropathy Urinary incontinence Surgical History Breast abscess CTS (carpal tunnel syndrome) H/O cardiac catheterization (~01/2020) H/O colonoscopy History of ankle surgery Family History Family History Father No problems noted. Mother No problems noted. Brother No problems noted. Sister No problems noted. Sister No problems noted. Son No problems noted. Social History Social History Household Members: None Housing: Apartment Do you presently have visiting nurse or other home services: Yes (do her medication) Patient Tobacco Use Status: Former Tobacco user Tobacco use type: Cigarette Cigarettes Per Day: 5 Years Smoked: 20 e-Cigarette/Vaping Use: Former Use Second Hand Smoke Exposure: No Substance Use Type: Marijuana Advance Directives: No Advance Directives Information Provided: No Current occupational status: unemployed Cognitive needs: No Hearing needs: No Vision needs: Yes Physical Exam Vital Signs: Vital Signs: Last Vital Signs Temp 97.8 F 04/30/22 13:41 Pulse 110 H 04/30/22 13:41 Resp 24 H 04/30/22 13:41 BP 133/101 H 04/30/22 13:41 Pulse Ox 99 04/30/22 13:41 O2 Del Method 04/30/22 13:41 BMI result Body Mass Index 28.8 Const: Other: Awake, alert, female patient, she does not appear to be in distress, she answers all questions appropriately HEENT: Head: Yes normal to inspection, Yes normocephalic and Yes atraumatic Ears: external ears normal General nose exam: Normal external nose present Face and sinus: Yes normal facial exam Mouth: Normal oral and palatal mucosa present Throat: Yes posterior oropharynx normal Eyes: General: appearance normal, both eyes and all related structures Pupils: Equal, round and reactive pupils present Neck: Neck: Yes normal visual inspection, Yes no lymphadenopathy, Yes trachea midline and Yes supple Chest: Chest palpation & inspection: normal inspection of the chest and normal palpation of entire chest wall Resp: Effort & Inspection: normal respiratory effort and able to speak in complete sentences Auscultation: clear to auscultation bilaterally Cardio: Rate: regular rate Rhythm: regular rhythm Heart sounds: S1 normal heart sound present, S2 normal heart sound present and no murmurs GI: Inspection: Yes normal to inspection Palpation (GI): Soft to palpation, nontender and no guarding Auscultation: normal bowel sounds : General: Yes no CVA tenderness Back/Spine/Pelvis: Back: no CVA tenderness Skin: General skin exam: no rashes or lesions noted Neuro: Cranial nerves: Yes CN's II-XII intact bilaterally and Yes Equal, round and reactive pupils present Cognition (Neuro): normal cognition Motor exam (neuro): 5/5 motor strength present throughout Extrem: General: Yes normal to inspection Psych: Appearance: grossly normal Speech and movement: Normal speech and movement present Affect: normal affect Course Course Course Narrative: A 56-year-old female who has been hospital patient here at [facility] from 04/04/2022 until today 04/30/2022 when she eloped/left against medical advise with today. Patient states that she was angry that she has not been able to get into his nursing home facility and decided to leave. Patient however did not get off hospital property and fell secondary to her peripheral neuropathy. A bystander helped her up and brought her back to the emergency department interest. She denies any injury from the fall. Her vital signs did reveal a labile blood pressure with her initial blood pressure being 187/113 and repeat blood pressure being 133/107, she is tachycardic with a heart rate ranging from 110-123. She also had an elevated respiratory rate of 20 4-28. Patient's O2 saturation was 100% on room air. Patient's exam was otherwise unremarkable with no evidence of significant injury from her fall. I will contact the covering hospitalist to get the patient readmitted to the hospital. 1736: I did discuss this patient with the covering hospitalist, Dr. Gregorio. He stated that the patient was going to be sent to a nursing facility yesterday and patient did not have any acute medical condition that would require hospitalization. Therefore the plan was to keep the patient in the emergency department overnight, have case management see the patient in the morning and arrange for transfer to the nursing home facility. I was informed by the nurse that the patient got out of bed and insisted on leaving. The nurse was unable to convince the patient to stay and she walked out of the emergency department. The patient is competent to make her own decisions and she is able to understand the consequences of leaving the emergency department this time. Medications Administered Discontinued Medications Generic Name Dose Route Start Last Admin Trade Name Freq PRN Reason Stop Dose Admin Gabapentin 800 mg 04/30/22 14:46 04/30/22 14:51 Gabapentin 600 Mg Tablet PO 04/30/22 14:47 800 mg ONCE ONE Administration Discharge Plan Discharge Clinical Impression: Fall, Eloped from emergency department Patient Disposition: Elopement Prescriptions: No Action duloxetine 60 mg capsule,delayed release(DR/EC) 60 mg PO DAILY Qty: 90 0RF aspirin 81 mg tablet,delayed release (DR/EC) 81 mg PO DAILY Qty: 90 0RF gabapentin 400 mg capsule 800 mg PO QID (DME) blood pressure monitor Kit See Rx Instructions .ROUTE .MEDSUPPLY Qty: 1 0RF Rx Instructions: BP MONITOR hjjscyty-xtm-kqqw fum-folic ac 7.5 mg iron-400 mcg tablet 1 tab PO DAILY atorvastatin 80 mg tablet 80 mg PO DAILY Qty: 90 3RF carvedilol 25 mg tablet 25 mg PO BID Qty: 180 3RF clopidogrel 75 mg tablet 75 mg PO DAILY Qty: 90 3RF pantoprazole 20 mg tablet,delayed release (DR/EC) 20 mg PO DAILY Qty: 90 3RF Discharge Date/Time: 04/30/22 16:10
[2022-04-30 13:41] VITALS: BP 133/101; PULSE 110; RESP 24; TEMP 36.6; O2SAT 99
[2022-04-30] MEDS: Gabapentin 600 MG TABLET 800 MG PO (14:51)
--- NOTE | 2022-04-30 15:36 | MHC.CM.PN ---
PT LEFT S3 AMA EARLIER TODAY, PT HAD BEEN WAITING FOR INSURANCE AUTH FOR STR AT [facility].
--- NOTE | 2022-04-30 15:55 | PC.NURSE ---
speaking to one of the patient experience in regards to this patient, while we where speaking, pt start's walking out of the ed, this rn attempting to stop the pt and explain that she really need's to stay but pt insisting on leaving. the door got opened by the patient experience individual and the pt exited the emergency room.
== END 2022-04-30 16:10 | disposition left against medical advice (07) ==
LOC: HO.ED 13:22
PROVIDERS: Emergency Provider Emergency Medicine Emergency Medical Services; PCP Internal Medicine
DX: R06.02 Shortness of breath (principal); Z79.899 Other long term (current) drug therapy; F17.210 Nicotine dependence, cigarettes, uncomplicated; Z71.6 Tobacco abuse counseling
CPT/HCPCS: 99283

== ENCOUNTER 2022-05-15 09:44 | Inpatient (IN) | payer OTHER, SELFPAY ==
--- NOTE | ~2022-05-15 | US_ITS ---
EXAMINATION: US VENOUS ULTRASOUND WITH DOPPLER LOWER EXTREMITY, LEFT CLINICAL INFORMATION: New-onset left lower extremity swelling COMPARISON: None TECHNIQUE: Ultrasound of the deep veins is performed from the hip to the calf with compression sonography and color and pulse Doppler assessment. Spectral analysis with color-flow imaging is performed. FINDINGS: There is normal venous compression and respiratory variation and augmented flow. The visualized common femoral vein, superficial femoral vein, profunda femoral vein, popliteal vein, and the trifurcation region shows no evidence of deep venous thrombosis. There is no significant popliteal fossa cyst. In the left popliteal fossa at the area of patient's reported lump there is edema and a small amount of nonloculated fluid in the subcutaneous fat. If the patient's symptoms persist, followup ultrasound in 5 days 7 days might be of value to exclude proximal propagation from a non-visualized calf vein. US/US venous duplex LE LT IMPRESSION: No DVT demonstrated in the left lower extremity.
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
--- NOTE | 2022-05-15 09:52 | ECG_ITS ---
Test Reason : med clearance Blood Pressure : / mmHG Vent. Rate : 110 BPM Atrial Rate : 110 BPM P-R Int : 152 ms QRS Dur : 080 ms QT Int : 372 ms P-R-T Axes : 030 -33 061 degrees QTc Int : 503 ms Sinus tachycardia Possible Left atrial enlargement Left axis deviation Minimal voltage criteria for LVH, may be normal variant ( R in aVL ) Inferior infarct , age undetermined Abnormal ECG When compared with ECG of 17-APR-2022 09:52, Vent. rate has increased BY 49 BPM Inferior infarct is now Present T wave inversion no longer evident in Inferior leads Referred By: Shelly Thomas Electronically Signed By:SONALI ELAM MD
[2022-05-15 10:12] VITALS: BP 130/100; BP 184/114; PULSE 115; PULSE 116; RESP 17; TEMP 36.6; O2SAT 98; BMI 29.2
[2022-05-15 10:24] LABS: Appearance Urine Clear; Color Urine Yellow; Glucose Urine UA Negative (Negative); Leukocyte Esterase Urine Negative (Negative); Nitrite Urine Negative (Negative); PH 5.5 (5.0-9.0); Urine Blood Negative (Negative); Urine Ketones Negative (Negative); Urine Protein Negative (Neg-Trace)
[2022-05-15 10:35] LABS: MANUAL DIFF FLAG NO
[2022-05-15 10:36] LABS: Amphetamine Screen Urine Not Detected (Not Detect); Barbiturates, Urine Not Detected (Not Detect); Benzodiazepines Screen Urine Not Detected (Not Detect); Cannabinoid Screen Urine POSITIVE (Not Detect); Cocaine Screen Urine Not Detected (Not Detect); Fentanyl, urine Not Detected (Not Detect); Opiate Screen Urine Not Detected (Not Detect); Phencyclidine Screen Urine Not Detected (Not Detect)
[2022-05-15 10:38] LABS: Basophils Percent Auto 0.3 % (0-2); Eosinophils Absolute Auto 0.1 X10*3/uL (0.0-0.4); Eosinophils Percent Auto 1.2 % (0-4); Hematocrit 41.4 % (37.0-47.0); Hemoglobin 13.9 g/dl (12.0-16.0); Imm Gran Abs Auto 0.03 X10*3/uL (0.00-0.03); Imm Gran Pct Auto 0.3 % (0.0-0.4); Lymphocytes Absolute Auto 3.1 X10*3/uL (1.2-4.9); Lymphocytes Percent Auto 29.5 % (20-40); Mean Corpuscular HGB Conc 33.6 g/dl (31.0-35.0); Mean Corpuscular Hemoglobin 30.3 pg (27.0-33.0); Mean Corpuscular Volume 90.4 fL (80.0-98.0); Mean Platelet Volume 10.3 fL (9.4-12.3); Monocytes Absolute Auto 0.5 X10*3/uL (0.1-1.2); Monocytes Percent Auto 5.1 % (2-11); Neutrophils Absolute Auto 6.6 x10*3/uL (2.0-8.3); Neutrophils Percent Auto 63.6 % (45-73); Platelet Count 272 X10*3/uL (160-400); Red Blood Count 4.58 X10*6/uL (4.20-5.50); Red Cell Distribution Width 12.6 % (11.0-16.0); White Blood Count 10.4 X10*3/uL (4.8-10.8)
[2022-05-15 10:56] LABS: COVID-19 Test Negative (Negative); IDNOW Serial# 55D5AD1C; IDNOW Serial# 9DB6401D; Influenza A Negative (Negative); Influenza B2 Negative (Negative)
--- NOTE | 2022-05-15 11:03 | PC.NURSE ---
provider at bedside, pt aware of plan of care.
[2022-05-15 11:05] LABS: Alanine Aminotransferase 13 U/L (0-31); Albumin Level 4.5 g/dL (3.5-5.0); Alkaline Phosphatase 95 U/L (39-117); Anion Gap 16 (12-20); Aspartate Amino Transferase 18 U/L (5-31); Bilirubin Total 0.9 mg/dL (0.0-1.0); Blood Urea Nitrogen 11 mg/dL (9-16); Calcium 9.5 mg/dL (8.4-10.2); Carbon Dioxide 25 mmol/L (22-29); Chloride 103 mmol/L (96-108); Creatinine Clr Calc Pharmacy 104.4; Estimated Glomerular Filt Rate > 60; Ethanol < 10 mg/dL; Glucose Random 115 mg/dL (60-115); Lipase 17 U/L (8-78); Magnesium 1.5 mg/dL (1.6-2.6); Potassium 3.8 mmol/L (3.3-5.1); Sodium 140 mmol/L (135-145); Total Protein 7.6 g/dL (6.5-8.0)
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
--- NOTE | 2022-05-15 11:23 | PC.NURSE ---
smart sheet done by this rn.
--- NOTE | 2022-05-15 13:56 | PHA.MEDREC ---
Pharmacy Consult ? Medication Reconciliation Pharmacy has completed the medication reconciliation. Spoke to patient, she stated she only takes gabapentin. She admits that she should be on a bunch of other meds however she feels fine and isnt a pill person so she has not been taking them since being discharged. She could not identify these other medications, used medical record of last admission + pharmacy claims to confirm list. Provider is aware of the above. She also mentioned she was feeling some anxiety at the time of my visit.
[2022-05-15] MEDS: Magnesium Oxide 400 MG TABLET 800 MG PO (14:24)
[2022-05-15] MEDS: Gabapentin 600 MG TABLET 800 MG PO (14:25)
--- NOTE | 2022-05-15 14:25 | PC.NURSE ---
care team at bedside, pt aware of plan of care.
[2022-05-15] MEDS: carvediloL 25 MG TABLET PO ×2 (14:26→19:45)
[2022-05-15] MEDS: DULoxetine HCl 60 MG CAPSULE.DR PO (14:26)
[2022-05-15] MEDS: Clopidogrel Bisulfate 75 MG TABLET PO (14:26)
[2022-05-15] MEDS: Aspirin Enteric Coated 81 MG TABLET.DR PO (14:26)
[2022-05-15] MEDS: Atorvastatin Calcium 80 MG TABLET PO (14:26)
[2022-05-15 14:53] VITALS: BP 170/111; PULSE 113; RESP 16; TEMP 36.4; O2SAT 98
[2022-05-15] MEDS: LORazepam 1 MG TABLET 2 MG PO (16:14)
[2022-05-15 16:34] VITALS: BP 113/74; PULSE 96; RESP 18; TEMP 36.4; O2SAT 99
--- NOTE | 2022-05-15 17:10 | PC.NURSE ---
rn to rn given to mari schwartz aware of plan of care for admission to [facility]. pt uses a walker at this time to ambulate with due to the fact that her room is furthest away from the bathroom and she states that she more I drink the more i void . pt states that getting her gabapentin on time helps with decrease pain and improves movement in her stefany legs.
[2022-05-15] MEDS: Gabapentin 400 MG CAPSULE 800 MG PO ×2 (18:17→19:46)
--- NOTE | 2022-05-15 18:44 | PC.NURSE ---
PT TOOK HER NEUROTIN LATE FELT VERY NAUSEOUS AND VOMITED APPROX 15 MINUTES LATER. SHE DID FINALLY TAKE HER MED BUT AT 18:45PM
[2022-05-15] MEDS: Midodrine HCl 10 MG TABLET PO (19:45)
[2022-05-15 19:46] VITALS: BP 106/72; PULSE 72; RESP 16
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
[2022-05-16] MEDS: Gabapentin 400 MG CAPSULE PO (04:35)
[2022-05-16 08:05] VITALS: BP 111/72; PULSE 97; O2SAT 97
[2022-05-16 08:30] VITALS: BP 116/75; PULSE 88; RESP 16; TEMP 36.8; O2SAT 97
[2022-05-16] MEDS: Gabapentin 400 MG CAPSULE 800 MG PO ×4 (08:47→20:24)
[2022-05-16] MEDS: carvediloL 25 MG TABLET PO ×2 (08:47→20:24)
[2022-05-16] MEDS: Atorvastatin Calcium 80 MG TABLET PO (08:47)
[2022-05-16] MEDS: Midodrine HCl 10 MG TABLET PO ×2 (08:48→20:24)
[2022-05-16] MEDS: Omeprazole 20 MG CAPSULE.DR PO (08:48)
[2022-05-16] MEDS: Aspirin Enteric Coated 81 MG TABLET.DR PO (08:48)
[2022-05-16] MEDS: Fludrocortisone Acetate 0.1 MG TABLET PO (08:48)
[2022-05-16] MEDS: DULoxetine HCl 60 MG CAPSULE.DR PO (08:48)
[2022-05-16] MEDS: Clopidogrel Bisulfate 75 MG TABLET PO (08:48)
[2022-05-16] MEDS: Multivitamin TABLET 1 TAB PO (08:52)
[2022-05-16 09:25] LABS: Estimated Average Glucose 117 mg/dL; Hemoglobin A1c % 5.7 %
[2022-05-16 10:28] LABS: Anion Gap 15 (12-20); Chloride 105 mmol/L (96-108); Free T4 (Free Thyroxine) 1.07 ng/dL (0.71-1.85); Glucose Fasting 101 mg/dL (60-99); Thyroid Stimulating Hormone 2.76 uIU/mL (0.32-4.0)
[2022-05-16 10:31] LABS: Alanine Aminotransferase 12 U/L (0-31); Albumin Level 4.3 g/dL (3.5-5.0); Alkaline Phosphatase 88 U/L (39-117); Aspartate Amino Transferase 20 U/L (5-31); Bilirubin Total 0.7 mg/dL (0.0-1.0); Blood Urea Nitrogen 11 mg/dL (9-16); Calcium 9.4 mg/dL (8.4-10.2); Carbon Dioxide 24 mmol/L (22-29); Cholesterol 170 mg/dL; Creatinine Clr Calc Pharmacy 102.9; Estimated Glomerular Filt Rate > 60; HDL Cholesterol 38 mg/dL; LDL Cholesterol Calculated 108 mg/dl; Potassium 4.5 mmol/L (3.3-5.1); Sodium 139 mmol/L (135-145); Total Protein 7.2 g/dL (6.5-8.0); Triglycerides 121 mg/dL
[2022-05-16 10:39] LABS: Folate 16.2 ng/mL (> or = 4.0); Vitamin B12 341 pg/mL (200-900)
--- NOTE | 2022-05-16 12:30 | ECG_ITS ---
Test Reason : Prolonged QTC Blood Pressure : / mmHG Vent. Rate : 077 BPM Atrial Rate : 077 BPM P-R Int : 168 ms QRS Dur : 078 ms QT Int : 440 ms P-R-T Axes : 047 -28 032 degrees QTc Int : 497 ms Normal sinus rhythm Prolonged QT Abnormal ECG When compared with ECG of 15-MAY-2022 10:07, No significant change was found Referred By: Austin Pardo Electronically Signed By:SONALI ELAM MD
[2022-05-16 15:14] VITALS: BP 136/87; O2SAT 99
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
[2022-05-16 20:30] VITALS: BP 129/90; PULSE 85; RESP 16; TEMP 36.3; O2SAT 96
[2022-05-16] MEDS: traZODone HCL 50 MG TABLET PO (22:51)
[2022-05-17 08:40] VITALS: BP 153/95; PULSE 80; RESP 18; TEMP 36.7; O2SAT 100
[2022-05-17] MEDS: Gabapentin 400 MG CAPSULE 800 MG PO (08:41)
[2022-05-17] MEDS: Atorvastatin Calcium 80 MG TABLET PO (08:42)
[2022-05-17] MEDS: Multivitamin TABLET 1 TAB PO (08:42)
[2022-05-17] MEDS: Aspirin Enteric Coated 81 MG TABLET.DR PO (08:42)
[2022-05-17] MEDS: carvediloL 25 MG TABLET PO (08:42)
[2022-05-17] MEDS: DULoxetine HCl 60 MG CAPSULE.DR PO (08:42)
[2022-05-17] MEDS: Fludrocortisone Acetate 0.1 MG TABLET PO (08:43)
[2022-05-17] MEDS: Omeprazole 20 MG CAPSULE.DR PO (08:43)
[2022-05-17] MEDS: Clopidogrel Bisulfate 75 MG TABLET PO (08:43)
[2022-05-17 09:25] VITALS: BP 153/95; PULSE 80; O2SAT 100
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
[2022-05-17] MEDS: Gabapentin 300 MG CAPSULE 900 MG PO ×2 (12:46→18:58)
--- NOTE | 2022-05-17 15:10 | P.PNPSI_ITS ---
Subjective Subjective Date of Service: 05/17/22 Reason For Visit: SI Interim History: pt calm and cooperative. expressing concern about her BP meds and risk of syncope, irritated OT said she was able to live independently. focus on meds, agreement made to increase gabapentin for neuropathic pain. mentions discharge- dependent suicidal intention with plan to jump from a height. discuss her desire for congregate living space, her need for some kind of income to achieve her housing goals. per staff, sleeping OK.... but neuropathy is painful and keeps her awake. safe on unit but would kill herself if DCed. denies HI/AVH. awake since 299. Mental Status Exam Mental Status Exam Narrative: calm, cooperative. no PMA/PMR. speech nml rate, loudness. incr amount, decr latency. thoughts linear and logical, perhaps digressive and over-inclusive of detail. affect full range, normo-intense, periods of tearfulness. safein hospital, but SI with plan to jump from a height if discharged. denies HI/AVH. Diagnostics Vital Signs (24Hr): Vital Signs - 24 hr 05/16/22 15:14 05/16/22 20:30 05/17/22 08:40 Temperature 97.4 F 98.0 F Pulse Rate 85 80 Respiratory Rate 16 18 Blood Pressure 136/87 129/90 H 153/95 H Pulse Oximetry 99 96 100 Oxygen Delivery Method Room Air Room Air Room Air 05/17/22 09:25 Temperature Pulse Rate 80 Respiratory Rate Blood Pressure 153/95 H Pulse Oximetry 100 Oxygen Delivery Method BMI result Body Mass Index 29.2 Labs Results: 05/15/22 10:32 05/16/22 08:44 Labs: Laboratory Results - last 48 hr 05/16/22 05/16/22 05/16/22 08:44 08:44 08:44 Sodium 139 Potassium 4.5 Chloride 105 Carbon Dioxide 24 Anion Gap 15 BUN 11 Creatinine 0.72 Estim Creat Clear Calc 102.9 Estimated GFR > 60 Fasting Glucose 101 H Estimat Average Glucose 117 Hemoglobin A1c % 5.7 Calcium 9.4 Total Bilirubin 0.7 AST 20 ALT 12 Alkaline Phosphatase 88 Total Protein 7.2 Albumin 4.3 Triglycerides 121 Cholesterol 170 LDL Cholesterol, Calc 108 HDL Cholesterol 38 Vitamin B12 341 Folate 16.2 TSH 2.76 Free T4 1.07 Medications Medications Current Medications Acetaminophen (Acetaminophen 325 Mg Tablet) 650 mg PO Q6H PRN PRN Reason: Headache/Pain Mild Scale (1-3) Al Hydroxide/Mg Hydroxide (Magnesium Hydrox/Alum Hydrox 30 Ml Oral.Susp) 30 ml PO Q6H PRN PRN Reason: Heartburn/Nausea Aspirin (Aspirin Enteric Coated 81 Mg Tablet.) 81 mg PO DAILY [facility] Last Admin: 05/17/22 08:42 Dose: 81 mg Atorvastatin Calcium (Atorvastatin Calcium 80 Mg Tablet) 80 mg PO DAILY [facility] Last Admin: 05/17/22 08:42 Dose: 80 mg Carvedilol (Carvedilol 25 Mg Tablet) 25 mg PO BID [facility]; Protocol Last Admin: 05/17/22 08:42 Dose: 25 mg Clopidogrel Bisulfate (Clopidogrel Bisulfate 75 Mg Tablet) 75 mg PO DAILY [facility] Last Admin: 05/17/22 08:43 Dose: 75 mg Duloxetine HCl (Duloxetine Hcl 60 Mg Capsule.) 60 mg PO DAILY [facility] Last Admin: 05/17/22 08:42 Dose: 60 mg Fludrocortisone Acetate (Fludrocortisone Acetate 0.1 Mg Tablet) 0.1 mg PO DAILY [facility] Last Admin: 05/17/22 08:43 Dose: 0.1 mg Gabapentin (Gabapentin 300 Mg Capsule) 900 mg PO BID@0700,1900 [facility] Gabapentin (Gabapentin 100 Mg Capsule) 200 mg PO BID@1100,1500 [facility] Hydroxyzine HCl (Hydroxyzine Hcl 25 Mg Tablet) 25 mg PO Q6H PRN PRN Reason: Anxiety Magnesium Hydroxide (Milk Of Magnesia 30 Ml Oral.Susp) 30 ml PO DAILY PRN PRN Reason: Constipation Midodrine (Midodrine Hcl 10 Mg Tablet) 10 mg PO TID [facility] Last Admin: 05/17/22 09:17 Dose: Not Given Multivitamins/Vitamin C (Multivitamin Tablet) 1 tab PO DAILY [facility] Last Admin: 05/17/22 08:42 Dose: 1 tab Omeprazole (Omeprazole 20 Mg Capsule.) 20 mg PO DAILY@0630 [facility] Last Admin: 05/17/22 08:43 Dose: 20 mg Trazodone HCl (Trazodone Hcl 50 Mg Tablet) 50 mg PO BEDTIME PRN PRN Reason: Insomnia Last Admin: 05/16/22 22:51 Dose: 50 mg Allergies Allergies Allergy/AdvReac Type Severity Reaction Status Date / Time aspirin [ASPIRIN] Allergy Unknown SENSITIVITY Verified 04/30/22 13:04 lisinopril Allergy Unknown falls, Verified 04/30/22 13:04 muscle weakness Assessment & Plan Assessment & Plan (1) Labile blood pressure: Status: Acute Code(s): R09.89 - Other specified symptoms and signs involving the circulatory and respiratory systems Assessment and Plan: Patient with significant labile blood pressure with markedly elevated blood pressure as well as prior history of orthostatic hypotension. This is related to autonomic dysfunction related autonomic neuropathy related to her diabetes and prior noncompliance. She does have also evidence of diabetic neuropathy. Had a very long discussion with her about this difficult condition to treat. We cannot expect normal blood pressure in her. This is going be a moving target to treat. Currently noticing that she does not have any significantly low blood pressure at this point time. Would reduce her midodrine to 5 mg 3 times a day and should be given half an hour before each meal. Also reduce carvedilol to 12.5 mg b.i.d.. Continue Florinef for now. Continue monitor blood pressure frequently, every 3 hours and recorded in the chart. If she gets symptomatic with dizziness, also measure blood pressures. Would give all her medications as long as the systolic blood pressure up between 110-150 mmHg. Some amount of permissive hypertension would be acceptable in her management as perfect management of blood pressure is not going to be possible. Can withhold her midodrine if her diastolic blood pressures above 95 mmHg. Continue to hydrate adequately by mouth. (2) QT prolongation: Status: Acute Code(s): R94.31 - Abnormal electrocardiogram [ECG] [EKG] Assessment and Plan: QT prolongation on EKG which has remained stable over the last many EKGs. This is probably related to her psychotropic medication also low magnesium level. Please replace magnesium aggressively and maintain magnesium level of above 2. Also maintain potassium level above 4. It seems like she needs her psychotropic medication and I think QTC interval up to 500 milliseconds is acceptable at this point in time. Continue to monitor EKGs with changes in her psychotropic medications. (3) CAD (coronary artery disease): Status: Acute Code(s): I25.10 - Atherosclerotic heart disease of [place] coronary artery without angina pectoris Assessment and Plan: Prior history of CAD with drug-eluting stent to LAD with poor compliance with follow-up as well as mild aortic stenosis. Continue aggressive medical therapy. Continue aspirin therapy for life. Continue high-intensity statin therapy. Continue aggressive control of diabetes goal hemoglobin A1c less than 7%. Blood pressure management as above. Greater than 45 minutes was spent in managing and discussing with her and trying to relationship counselor her. (4) Suicidal ideation: Status: Acute Code(s): R45.851 - Suicidal ideations (5) Acute anxiety: Status: Acute Code(s): F41.9 - Anxiety disorder, unspecified (6) Depression: Status: Acute Code(s): F32.A - Depression, unspecified Plan 05/16: continue outpt meds for now. cardiology consult for mgmt of BP and opinion on QTc mgmt. OT eval for ambulation and need for long-term. build rapport, consider mood/anxiety medication as indicated. Patient educated on: diagnosis and substance abuse 05/17: per OT: She should continue using the walker. Her biggest issue is her orthostatic hypotension and frequently syncopizes (not in past 2 weeks though). As for her ability to live independently, yes, from a purely musculoskeletal sta ndpoint. per Cardiology: 1) reduce midodrine to 5 mg TID, give 30 min prior to meals. 2) reduce carvedilol to 12.5 BID. 3) continue fludrocortisone as is. 4) BP Q3H WA. 5) hold midodrine for SBP > 150 or DBP > 95. 6) hold fludrocortisone if SBP > 150. 7) hold carvedilol if SBP < 110. 8) replete Mg to above 2. 9) replete K to above 4. 10) QTc up to 500 ms is acceptable for now. psych: stable presentation. I spent ___35___ minutes with the patient and/or on the patient floor today, greater than?50% of which was spent counseling/coordinating care. Reason for contiued inpatient stay Substantial Risk for: harm to self and inability to function
[2022-05-17] MEDS: Gabapentin 100 MG CAPSULE 200 MG PO (15:43)
[2022-05-17 16:00] VITALS: BP 134/78; PULSE 80; RESP 18
[2022-05-17] MEDS: hydrOXYzine HCL 25 MG TABLET PO (16:14)
[2022-05-17] MEDS: Magnesium Oxide 400 MG TABLET PO (16:16)
[2022-05-17 17:25] VITALS: BP 141/73; PULSE 89; RESP 20; O2SAT 97
[2022-05-17] MEDS: Midodrine HCl 5 MG TABLET PO (17:59)
[2022-05-17 21:45] VITALS: BP 119/73; PULSE 92; RESP 16; TEMP 36.3; O2SAT 98
[2022-05-17] MEDS: carvediloL 12.5 MG TABLET PO (22:41)
[2022-05-18] VITALS (8 sets, daily range): BP systolic 119–176; BP diastolic 68–98; PULSE 76–92; RESP 18–20; TEMP 36.1–36.7; O2SAT 97–100; BMI 29.7
[2022-05-18] MEDS: Omeprazole 20 MG CAPSULE.DR PO (07:22)
[2022-05-18] MEDS: Gabapentin 300 MG CAPSULE 900 MG PO ×3 (07:22→18:38)
[2022-05-18] MEDS: Clopidogrel Bisulfate 75 MG TABLET PO (08:19)
[2022-05-18] MEDS: Aspirin Enteric Coated 81 MG TABLET.DR PO (08:19)
[2022-05-18] MEDS: DULoxetine HCl 60 MG CAPSULE.DR PO (08:19)
[2022-05-18] MEDS: Fludrocortisone Acetate 0.1 MG TABLET PO (08:19)
[2022-05-18] MEDS: carvediloL 12.5 MG TABLET PO ×2 (08:20→20:34)
[2022-05-18] MEDS: Multivitamin TABLET 1 TAB PO (08:20)
[2022-05-18] MEDS: Atorvastatin Calcium 80 MG TABLET PO (08:20)
[2022-05-18] MEDS: Magnesium Oxide 400 MG TABLET PO (08:20)
[2022-05-18] MEDS: Midodrine HCl 5 MG TABLET PO ×2 (08:26→13:27)
[2022-05-18] MEDS: Gabapentin 100 MG CAPSULE 200 MG PO (11:04)
--- NOTE | 2022-05-18 11:43 | HO.PSYCHPN ---
Subjective Subjective Date of Service: 05/18/22 Reason For Visit: SI Interim History: pt seeks out MD c/o dose reduction in gabapentin. MD reviews chart and notes order change from yesterday was entered incorrectly, problem fixed, catch-up dose ordered for now. pt expresses satisfaction, appears to not have other questions or concerns for MD. Dr. Alamo of cardiology arrives and speaks briefly with pt, noting her BP has improved and indicating plan to continue with current Tx for now. ruy and this parts data writer also speak briefly about pt's care. per staff, anx/dep 03/20. not happy about plan to discharge her home. talkative, social on eves. triggered by loud and aggressive male peer. up until 299 due to fear of peer, awake since 529. Mental Status Exam Mental Status Exam Narrative: calm, cooperative. no PMA/PMR. speech nml rate, loudness. incr amount, decr latency. thoughts linear and logical, perhaps digressive and over-inclusive of detail. affect full range, normo-intense, non-labile. no SI/HI/AVH expressed. Diagnostics Vital Signs (24Hr): Vital Signs - 24 hr 05/17/22 16:00 05/17/22 17:25 05/17/22 21:45 Temperature 97.4 F Pulse Rate 80 89 92 Respiratory Rate 18 20 16 Blood Pressure 134/78 141/73 H 119/73 Pulse Oximetry 97 98 Oxygen Delivery Method Room Air Room Air 05/18/22 01:04 05/18/22 08:18 05/18/22 11:03 Temperature 97.7 F 97.1 F Pulse Rate 78 86 85 Respiratory Rate 18 18 Blood Pressure 119/74 133/70 127/75 Pulse Oximetry 100 99 Oxygen Delivery Method Room Air Room Air BMI result Body Mass Index 29.7 Labs Results: 05/15/22 10:32 05/16/22 08:44 Medications Medications Current Medications Acetaminophen (Acetaminophen 325 Mg Tablet) 650 mg PO Q6H PRN PRN Reason: Headache/Pain Mild Scale (1-3) Al Hydroxide/Mg Hydroxide (Magnesium Hydrox/Alum Hydrox 30 Ml Oral.Susp) 30 ml PO Q6H PRN PRN Reason: Heartburn/Nausea Aspirin (Aspirin Enteric Coated 81 Mg Tablet.) 81 mg PO DAILY [facility] Last Admin: 05/18/22 08:19 Dose: 81 mg Atorvastatin Calcium (Atorvastatin Calcium 80 Mg Tablet) 80 mg PO DAILY [facility] Last Admin: 05/18/22 08:20 Dose: 80 mg Carvedilol (Carvedilol 12.5 Mg Tablet) 12.5 mg PO BID [facility] Last Admin: 05/18/22 08:20 Dose: 12.5 mg Clopidogrel Bisulfate (Clopidogrel Bisulfate 75 Mg Tablet) 75 mg PO DAILY [facility] Last Admin: 05/18/22 08:19 Dose: 75 mg Duloxetine HCl (Duloxetine Hcl 60 Mg Capsule.) 60 mg PO DAILY [facility] Last Admin: 05/18/22 08:19 Dose: 60 mg Fludrocortisone Acetate (Fludrocortisone Acetate 0.1 Mg Tablet) 0.1 mg PO DAILY [facility] Last Admin: 05/18/22 08:19 Dose: 0.1 mg Gabapentin (Gabapentin 300 Mg Capsule) 900 mg PO BID@0700,1900 [facility] Last Admin: 05/18/22 07:22 Dose: 900 mg Gabapentin (Gabapentin 300 Mg Capsule) 900 mg PO BID@1100,1500 [facility] Hydroxyzine HCl (Hydroxyzine Hcl 25 Mg Tablet) 25 mg PO Q6H PRN PRN Reason: Anxiety Last Admin: 05/17/22 16:14 Dose: 25 mg Magnesium Hydroxide (Milk Of Magnesia 30 Ml Oral.Susp) 30 ml PO DAILY PRN PRN Reason: Constipation Magnesium Oxide (Magnesium Oxide 400 Mg Tablet) 400 mg PO DAILY [facility] Last Admin: 05/18/22 08:20 Dose: 400 mg Midodrine (Midodrine Hcl 5 Mg Tablet) 5 mg PO TID@0900,1300,1800 [facility] Last Admin: 05/18/22 08:26 Dose: 5 mg Multivitamins/Vitamin C (Multivitamin Tablet) 1 tab PO DAILY [facility] Last Admin: 05/18/22 08:20 Dose: 1 tab Omeprazole (Omeprazole 20 Mg Capsule.) 20 mg PO DAILY@0630 [facility] Last Admin: 05/18/22 07:22 Dose: 20 mg Trazodone HCl (Trazodone Hcl 50 Mg Tablet) 50 mg PO BEDTIME PRN PRN Reason: Insomnia Last Admin: 05/16/22 22:51 Dose: 50 mg Allergies Allergies Allergy/AdvReac Type Severity Reaction Status Date / Time aspirin [ASPIRIN] Allergy Unknown SENSITIVITY Verified 04/30/22 13:04 lisinopril Allergy Unknown falls, Verified 04/30/22 13:04 muscle weakness Assessment & Plan Assessment & Plan (1) Labile blood pressure: Status: Acute Code(s): R09.89 - Other specified symptoms and signs involving the circulatory and respiratory systems Assessment and Plan: Patient with significant labile blood pressure with markedly elevated blood pressure as well as prior history of orthostatic hypotension. This is related to autonomic dysfunction related autonomic neuropathy related to her diabetes and prior noncompliance. She does have also evidence of diabetic neuropathy. Had a very long discussion with her about this difficult condition to treat. We cannot expect normal blood pressure in her. This is going be a moving target to treat. Currently noticing that she does not have any significantly low blood pressure at this point time. Would reduce her midodrine to 5 mg 3 times a day and should be given half an hour before each meal. Also reduce carvedilol to 12.5 mg b.i.d.. Continue Florinef for now. Continue monitor blood pressure frequently, every 3 hours and recorded in the chart. If she gets symptomatic with dizziness, also measure blood pressures. Would give all her medications as long as the systolic blood pressure up between 110-150 mmHg. Some amount of permissive hypertension would be acceptable in her management as perfect management of blood pressure is not going to be possible. Can withhold her midodrine if her diastolic blood pressures above 95 mmHg. Continue to hydrate adequately by mouth. (2) QT prolongation: Status: Acute Code(s): R94.31 - Abnormal electrocardiogram [ECG] [EKG] Assessment and Plan: QT prolongation on EKG which has remained stable over the last many EKGs. This is probably related to her psychotropic medication also low magnesium level. Please replace magnesium aggressively and maintain magnesium level of above 2. Also maintain potassium level above 4. It seems like she needs her psychotropic medication and I think QTC interval up to 500 milliseconds is acceptable at this point in time. Continue to monitor EKGs with changes in her psychotropic medications. (3) CAD (coronary artery disease): Status: Acute Code(s): I25.10 - Atherosclerotic heart disease of [place] coronary artery without angina pectoris Assessment and Plan: Prior history of CAD with drug-eluting stent to LAD with poor compliance with follow-up as well as mild aortic stenosis. Continue aggressive medical therapy. Continue aspirin therapy for life. Continue high-intensity statin therapy. Continue aggressive control of diabetes goal hemoglobin A1c less than 7%. Blood pressure management as above. Greater than 45 minutes was spent in managing and discussing with her and trying to direct selling counselor her. (4) Suicidal ideation: Status: Acute Code(s): R45.851 - Suicidal ideations (5) Acute anxiety: Status: Acute Code(s): F41.9 - Anxiety disorder, unspecified (6) Depression: Status: Acute Code(s): F32.A - Depression, unspecified Plan 05/16: continue outpt meds for now. cardiology consult for mgmt of BP and opinion on QTc mgmt. OT eval for ambulation and need for shelter. build rapport, consider mood/anxiety medication as indicated. Patient educated on: diagnosis and substance abuse 05/17: per OT: She should continue using the walker. Her biggest issue is her orthostatic hypotension and frequently syncopizes (not in past 2 weeks though). As for her ability to live independently, yes, from a purely musculoskeletal standpoint. per Cardiology: 1) reduce midodrine to 5 mg TID, give 30 min prior to meals. 2) reduce carvedilol to 12.5 BID. 3) continue fludrocortisone as is. 4) BP Q3H WA. 5) hold midodrine for SBP > 150 or DBP > 95. 6) hold fludrocortisone if SBP > 150. 7) hold carvedilol if SBP < 110. 8) replete Mg to above 2. 9) replete K to above 4. 10) QTc up to 500 ms is acceptable for now. psych: stable presentation. 05/18: BP improved. gabapentin increased to 900 QID as of today. otherwise continue current mgmt. I spent ___25___ minutes with the patient and/or on the patient floor today, greater than?50% of which was spent counseling/coordinating care. Reason for contiued inpatient stay Substantial Risk for: harm to self, inability to function and rapid decompensation
--- NOTE | 2022-05-18 11:56 | PM.PNCARD ---
Subjective Subjective Date of Service: 05/18/22 Principal diagnosis: Labile blood pressure, CAD. Interval history: Patient denies any obvious cardiac symptoms. Says she had 1 episode of vomiting after eating rivera and felt a little lightheaded. No blood pressures checked at this time. Generally a blood pressure the last 24 hours appear within reasonable range Review of Systems Review of Systems Yes all other systems are reviewed and are negative Physical Exam Vital Signs: Last Vital Signs Temp 97.1 F 05/18/22 11:03 Pulse 85 05/18/22 11:03 Resp 18 05/18/22 11:03 BP 127/75 05/18/22 11:03 Pulse Ox 99 05/18/22 11:03 O2 Del Method 05/18/22 11:03 BMI result Body Mass Index 29.7 Const General: cooperative, comfortable, alert and awake Nutritional Appearance: average body habitus Orientation/consciousness: patient oriented x3 Neck Neck: Yes trachea midline, Yes supple and Yes no JVD Resp Effort & Inspection: normal respiratory effort Auscultation: clear to auscultation bilaterally Cardio Jugular venous distension: no JVD Palpation: normal PMI Rate: regular rate Rhythm: regular rhythm Heart sounds: S1 normal heart sound present, S2 normal heart sound present, no click, no gallops and no murmurs Neuro General: patient oriented x3 Extrem General: Yes no clubbing, cyanosis or edema Objective Labs and Meds Result diagrams: 05/15/22 10:32 05/16/22 08:44 Progress Note: A&P Assessment and plan (1) Labile blood pressure: Status: Acute Assessment and Plan: Significant labile blood pressure related to diabetic autonomic neuropathy and autonomic dysfunction. Blood pressure appears reasonable on current regimen. Continue the same. Continue monitor blood pressure every few hours while inpatient. Continue log and manage as discussed yesterday. Continue maintain adequate oral hydration. Orthostatic precautions to be followed. (2) CAD (coronary artery disease): Status: Acute Assessment and Plan: CAD stable without any new symptoms. Continue aspirin high-intensity statin therapy. Aggressive control of diabetes goal hemoglobin A1c less than 7%. Continue current blood pressure management as above. Will follow if needed. Time Spent With Patient Time: Total time spent is greater than 50% in coordination of care (as documented) at patient's floor/unit and/or counseling patient: Procedures Date of Service Date of Service: 05/18/22
[2022-05-18] MEDS: Gabapentin 100 MG CAPSULE 700 MG PO (12:07)
[2022-05-18] MEDS: Mineral Oil/Petrolatum,White 106 GM Tube 1 APPL TOPICAL (21:46)
[2022-05-18] MEDS: hydrOXYzine HCL 25 MG TABLET PO (21:56)
[2022-05-19] MEDS: Omeprazole 20 MG CAPSULE.DR PO (06:21)
[2022-05-19] MEDS: Gabapentin 300 MG CAPSULE 900 MG PO ×4 (06:21→18:23)
[2022-05-19] MEDS: Acetaminophen 325 MG TABLET 650 MG PO (06:21)
[2022-05-19] MEDS: hydrOXYzine HCL 25 MG TABLET PO ×2 (06:33→12:16)
[2022-05-19 08:00] VITALS: BP 168/92; PULSE 92; TEMP 36.5; O2SAT 100
[2022-05-19] MEDS: Multivitamin TABLET 1 TAB PO (08:52)
[2022-05-19] MEDS: Atorvastatin Calcium 80 MG TABLET PO (08:53)
[2022-05-19] MEDS: Fludrocortisone Acetate 0.1 MG TABLET PO (08:53)
[2022-05-19] MEDS: Aspirin Enteric Coated 81 MG TABLET.DR PO (08:53)
[2022-05-19] MEDS: Magnesium Oxide 400 MG TABLET PO (08:53)
[2022-05-19] MEDS: Clopidogrel Bisulfate 75 MG TABLET PO (08:53)
[2022-05-19] MEDS: DULoxetine HCl 60 MG CAPSULE.DR PO (08:54)
[2022-05-19] MEDS: carvediloL 12.5 MG TABLET PO ×2 (08:54→21:42)
[2022-05-19] MEDS: Ibuprofen 400 MG TABLET PO (10:57)
[2022-05-19 12:14] VITALS: BP 118/72; PULSE 87; TEMP 36; O2SAT 96
[2022-05-19] MEDS: Midodrine HCl 5 MG TABLET PO ×2 (12:16→17:40)
[2022-05-19] MEDS: Ammonium Lactate 12 % Cream 140 GM TUBE 1 APPL TOPICAL (12:16)
--- NOTE | 2022-05-19 12:30 | HO.PSYCHPN ---
Subjective Subjective Date of Service: 05/19/22 Reason For Visit: SI Interim History: Pt continues to report discomfort with male pt who she states is family friend and she met as child. Pt reports this pt is coming close to her intentionally to disrupt her. However, other pt on one to one and disorganized but not targeting any pt in particular. Pt feels that her care on the unit has been affected by number of staff that this other pt requires. She was offered to go to other unit, but states that she would feel punished if she is the one who has to moved. She reports suicidal ideation with plan to jump off building. Pt taking medications. Medication Compliance: Yes Side effects from medications: No Attending Groups: Yes Review of Systems Review of Systems Constitutional : No Fever, No Chills ENT/Mouth : No Ear Pain, No Nasal Congestion, No sore throat Eyes: No Eye Pain, No Swelling, No Redness Cardiovascular : No Chest Pain, No SOB Respiratory : No Cough, No Sputum, No Dyspnea Gastrointestinal : No ingestions, No Nausea, No Vomiting, No Diarrhea, No Hematochezia, No Melena Genitourinary : No Dysuria, No Urinary Frequency, No Hematuria Musculoskeletal : No Myalgias Skin : No Skin Lesions, No rash Neuro : No Weakness, No Numbness, No Paresthesias, No Dizziness, No Headache Psych : + Anxiety, + Depression, + SI, + thoughts of self injury, No HI, No AVH, Heme/Lymph: No Lymphadenopathy Endocrine : No Polyuria, No Polydipsia Yes all other systems are reviewed and are negative Constitutional: Reports no additional constitutional complaints Eyes: Reports no additional eye complaints Cardiovascular: Denies chest pain, Denies syncope, Reports rapid heart rate, Denies leg edema, Denies lightheadedness, Denies Loss of Consciousness, Denies palpitations and Denies dyspnea Respiratory: Reports no additional respiratory complaints and Denies dyspnea Gastrointestinal: Reports no additional gastrointestinal complaints Musculoskeletal: Reports no additional musculoskeletal complaints and Reports abnormal gait Skin/Breast: Reports system reviewed and no additional complaints, except as docu Reports abnormal gait, Denies syncope, Reports paresthesias and Reports other (Neuropathic pain) Psychiatric: Reports anxiety, Reports mood swings and Reports suicidal ideation Endocrine: Denies palpitations Mental Status Exam Mental Status Exam Narrative: calm, cooperative. no PMA/PMR. speech nml rate, loudness. incr amount, decr latency. thoughts linear and logical, perhaps digressive and over-inclusive of detail. affect full range, normo-intense, non-labile. no SI/HI/AVH expressed. Diagnostics Vital Signs (24Hr): Vital Signs - 24 hr 05/18/22 23:40 05/19/22 08:00 05/19/22 12:14 Temperature 98.1 F 97.7 F 96.8 F Pulse Rate 82 92 87 Respiratory Rate 18 Blood Pressure 139/68 168/92 H 118/72 Pulse Oximetry 100 100 96 Oxygen Delivery Method Room Air Room Air Room Air 05/19/22 17:33 05/19/22 21:35 Temperature 97.4 F Pulse Rate 91 80 Respiratory Rate 18 Blood Pressure 130/78 125/80 Pulse Oximetry 97 Oxygen Delivery Method Room Air BMI result Body Mass Index 29.7 Labs Results: 05/15/22 10:32 05/16/22 08:44 Medications Medications Current Medications Acetaminophen (Acetaminophen 325 Mg Tablet) 650 mg PO Q6H PRN PRN Reason: Headache/Pain Mild Scale (1-3) Last Admin: 05/19/22 06:21 Dose: 650 mg Al Hydroxide/Mg Hydroxide (Magnesium Hydrox/Alum Hydrox 30 Ml Oral.Susp) 30 ml PO Q6H PRN PRN Reason: Heartburn/Nausea Aspirin (Aspirin Enteric Coated 81 Mg Tablet.) 81 mg PO DAILY [facility] Last Admin: 05/19/22 08:53 Dose: 81 mg Atorvastatin Calcium (Atorvastatin Calcium 80 Mg Tablet) 80 mg PO DAILY [facility] Last Admin: 05/19/22 08:53 Dose: 80 mg Carvedilol (Carvedilol 12.5 Mg Tablet) 12.5 mg PO BID [facility] Last Admin: 05/19/22 21:42 Dose: 12.5 mg Clopidogrel Bisulfate (Clopidogrel Bisulfate 75 Mg Tablet) 75 mg PO DAILY [facility] Last Admin: 05/19/22 08:53 Dose: 75 mg Duloxetine HCl (Duloxetine Hcl 60 Mg Capsule.) 60 mg PO DAILY [facility] Last Admin: 05/19/22 08:54 Dose: 60 mg Fludrocortisone Acetate (Fludrocortisone Acetate 0.1 Mg Tablet) 0.1 mg PO DAILY [facility] Last Admin: 05/19/22 08:53 Dose: 0.1 mg Gabapentin (Gabapentin 300 Mg Capsule) 900 mg PO BID@0700,1900 [facility] Last Admin: 05/19/22 18:23 Dose: 900 mg Gabapentin (Gabapentin 300 Mg Capsule) 900 mg PO BID@1100,1500 [facility] Last Admin: 05/19/22 16:10 Dose: 900 mg Hydrocortisone (Hydrocortisone 1 % Ointment 28.35 Gm Tube) 1 appl TOPICAL BID PRN; Protocol PRN Reason: left hand Hydroxyzine HCl (Hydroxyzine Hcl 25 Mg Tablet) 50 mg PO Q4H PRN PRN Reason: Anxiety Last Admin: 05/19/22 16:10 Dose: 50 mg Ibuprofen (Ibuprofen 400 Mg Tablet) 400 mg PO Q6H PRN PRN Reason: Pain, Moderate (Pain Scale 4-6 Last Admin: 05/19/22 10:57 Dose: 400 mg Lactic Acid (Ammonium Lactate 12 % Cream 140 Gm Tube) 1 appl TOPICAL BID PRN; Protocol PRN Reason: Dry Skin Last Admin: 05/19/22 12:16 Dose: 1 appl Magnesium Hydroxide (Milk Of Magnesia 30 Ml Oral.Susp) 30 ml PO DAILY PRN PRN Reason: Constipation Magnesium Oxide (Magnesium Oxide 400 Mg Tablet) 400 mg PO DAILY [facility] Last Admin: 05/19/22 08:53 Dose: 400 mg Midodrine (Midodrine Hcl 5 Mg Tablet) 5 mg PO TID@0900,1300,1800 [facility] Last Admin: 05/19/22 17:40 Dose: 5 mg Multi-Ingred Cream/Lotion/Oil/Oint (Mineral Oil/Petrolatum,White 106 Gm Tube) 1 appl TOPICAL BID [facility]; Protocol Last Admin: 05/19/22 09:08 Dose: Not Given Multivitamins/Vitamin C (Multivitamin Tablet) 1 tab PO DAILY [facility] Last Admin: 05/19/22 08:52 Dose: 1 tab Nicotine (Nicotine 21 Mg Patch.Td24) 21 mg TRANSDERMA DAILY PRN PRN Reason: nicotine cravings Omeprazole (Omeprazole 20 Mg Capsule.Dr) 20 mg PO DAILY@0630 [facility] Last Admin: 05/19/22 06:21 Dose: 20 mg Trazodone HCl (Trazodone Hcl 50 Mg Tablet) 50 mg PO BEDTIME PRN PRN Reason: Insomnia Last Admin: 05/16/22 22:51 Dose: 50 mg Allergies Allergies Allergy/AdvReac Type Severity Reaction Status Date / Time aspirin [ASPIRIN] Allergy Unknown SENSITIVITY Verified 04/30/22 13:04 lisinopril Allergy Unknown falls, Verified 04/30/22 13:04 muscle weakness Assessment & Plan Assessment & Plan (1) Borderline personality disorder: Status: Acute Code(s): F60.3 - Borderline personality disorder Plan 1. continue tx. I spent minutes with the patient and/or on the patient floor today, greater than?50% of which was spent counseling/coordinating care. Reason for contiued inpatient stay Substantial Risk for: inability to function
[2022-05-19] MEDS: hydrOXYzine HCL 25 MG TABLET 50 MG PO (16:10)
[2022-05-19 17:33] VITALS: BP 130/78; PULSE 91
[2022-05-19 21:35] VITALS: BP 125/80; PULSE 80; RESP 18; TEMP 36.3; O2SAT 97
[2022-05-20] MEDS: Hydrocortisone 1 % Ointment 28.35 GM TUBE 1 APPL TOPICAL ×2 (02:16→07:39)
[2022-05-20] MEDS: Ammonium Lactate 12 % Cream 140 GM TUBE 1 APPL TOPICAL (02:16)
[2022-05-20] MEDS: Ibuprofen 400 MG TABLET PO ×2 (02:39→10:04)
[2022-05-20] MEDS: traZODone HCL 50 MG TABLET PO (02:39)
[2022-05-20] MEDS: Omeprazole 20 MG CAPSULE.DR PO (07:17)
[2022-05-20] MEDS: Gabapentin 300 MG CAPSULE 900 MG PO ×4 (07:17→18:52)
[2022-05-20 08:50] VITALS: BP 138/83; PULSE 81; RESP 18; TEMP 36.7; O2SAT 98
[2022-05-20] MEDS: Clopidogrel Bisulfate 75 MG TABLET PO (09:06)
[2022-05-20] MEDS: Atorvastatin Calcium 80 MG TABLET PO (09:06)
[2022-05-20] MEDS: Multivitamin TABLET 1 TAB PO (09:06)
[2022-05-20] MEDS: Fludrocortisone Acetate 0.1 MG TABLET PO (09:06)
[2022-05-20] MEDS: Aspirin Enteric Coated 81 MG TABLET.DR PO (09:07)
[2022-05-20] MEDS: carvediloL 12.5 MG TABLET PO ×2 (09:07→22:34)
[2022-05-20] MEDS: DULoxetine HCl 60 MG CAPSULE.DR PO (09:07)
[2022-05-20] MEDS: Magnesium Oxide 400 MG TABLET PO (09:07)
[2022-05-20 12:02] VITALS: BP 148/83; PULSE 81; RESP 16; TEMP 36.7; O2SAT 98
--- NOTE | 2022-05-20 13:49 | HO.PSYCHPN ---
Subjective Subjective Date of Service: 05/20/22 Reason For Visit: SI Interim History: Met with patient. Chart reviewed. Discussed with Nursing. Overall reports feeling less anxious and less depressed. Did report feeling targeted by another patient who has been behaviorally difficult on the unit. Does repaired overall though feeling less scared and paranoid today. Feeling supported. Sparing use of PRNs. Reports sleep is getting better. Feels more hopeful today. Medication Compliance: Yes Side effects from medications: No Attending Groups: Yes Review of Systems Acute medical concerns: No Review of Systems Review of Systems Unremarkable Mental Status Exam Mental Status Exam Narrative: pleasant. Engaged. Hospital clothing. Slightly pressured in speech and tangential. Reports feeling less anxious and less depressed. No SI. No HI. No agitation or psychosis. Insight and judgment okay Diagnostics Vital Signs (24Hr): Vital Signs - 24 hr 05/19/22 17:33 05/19/22 21:35 05/20/22 12:02 Temperature 97.4 F 98.1 F Pulse Rate 91 80 81 Respiratory Rate 18 16 Blood Pressure 130/78 125/80 148/83 H Pulse Oximetry 97 98 Oxygen Delivery Method Room Air Room Air BMI result Body Mass Index 29.7 Labs Results: 05/15/22 10:32 05/16/22 08:44 Medications Medications Current Medications Acetaminophen (Acetaminophen 325 Mg Tablet) 650 mg PO Q6H PRN PRN Reason: Headache/Pain Mild Scale (1-3) Last Admin: 05/19/22 06:21 Dose: 650 mg Al Hydroxide/Mg Hydroxide (Magnesium Hydrox/Alum Hydrox 30 Ml Oral.Susp) 30 ml PO Q6H PRN PRN Reason: Heartburn/Nausea Aspirin (Aspirin Enteric Coated 81 Mg Tablet.) 81 mg PO DAILY [facility] Last Admin: 05/20/22 09:07 Dose: 81 mg Atorvastatin Calcium (Atorvastatin Calcium 80 Mg Tablet) 80 mg PO DAILY [facility] Last Admin: 05/20/22 09:06 Dose: 80 mg Carvedilol (Carvedilol 12.5 Mg Tablet) 12.5 mg PO BID [facility] Last Admin: 05/20/22 09:07 Dose: 12.5 mg Clopidogrel Bisulfate (Clopidogrel Bisulfate 75 Mg Tablet) 75 mg PO DAILY [facility] Last Admin: 05/20/22 09:06 Dose: 75 mg Duloxetine HCl (Duloxetine Hcl 60 Mg Capsule.) 60 mg PO DAILY [facility] Last Admin: 05/20/22 09:07 Dose: 60 mg Fludrocortisone Acetate (Fludrocortisone Acetate 0.1 Mg Tablet) 0.1 mg PO DAILY [facility] Last Admin: 05/20/22 09:06 Dose: 0.1 mg Gabapentin (Gabapentin 300 Mg Capsule) 900 mg PO BID@0700,1900 [facility] Last Admin: 05/20/22 07:17 Dose: 900 mg Gabapentin (Gabapentin 300 Mg Capsule) 900 mg PO BID@1100,1500 [facility] Last Admin: 05/20/22 11:47 Dose: 900 mg Hydrocortisone (Hydrocortisone 1 % Ointment 28.35 Gm Tube) 1 appl TOPICAL BID PRN; Protocol PRN Reason: left hand Last Admin: 05/20/22 07:39 Dose: 1 appl Hydroxyzine HCl (Hydroxyzine Hcl 25 Mg Tablet) 50 mg PO Q4H PRN PRN Reason: Anxiety Last Admin: 05/19/22 16:10 Dose: 50 mg Ibuprofen (Ibuprofen 400 Mg Tablet) 400 mg PO Q6H PRN PRN Reason: Pain, Moderate (Pain Scale 4-6 Last Admin: 05/20/22 10:04 Dose: 400 mg Lactic Acid (Ammonium Lactate 12 % Cream 140 Gm Tube) 1 appl TOPICAL BID PRN; Protocol PRN Reason: Dry Skin Last Admin: 05/20/22 02:16 Dose: 1 appl Magnesium Hydroxide (Milk Of Magnesia 30 Ml Oral.Susp) 30 ml PO DAILY PRN PRN Reason: Constipation Magnesium Oxide (Magnesium Oxide 400 Mg Tablet) 400 mg PO DAILY [facility] Last Admin: 05/20/22 09:07 Dose: 400 mg Midodrine (Midodrine Hcl 5 Mg Tablet) 5 mg PO TID@0900,1300,1800 [facility] Last Admin: 05/20/22 09:07 Dose: Not Given Multi-Ingred Cream/Lotion/Oil/Oint (Mineral Oil/Petrolatum,White 106 Gm Tube) 1 appl TOPICAL BID [facility]; Protocol Last Admin: 05/20/22 09:09 Dose: Not Given Multivitamins/Vitamin C (Multivitamin Tablet) 1 tab PO DAILY [facility] Last Admin: 05/20/22 09:06 Dose: 1 tab Nicotine (Nicotine 21 Mg Patch.Td24) 21 mg TRANSDERMA DAILY PRN PRN Reason: nicotine cravings Omeprazole (Omeprazole 20 Mg Capsule.Dr) 20 mg PO DAILY@0630 [facility] Last Admin: 12/10/22 07:17 Dose: 20 mg Trazodone HCl (Trazodone Hcl 50 Mg Tablet) 50 mg PO BEDTIME PRN PRN Reason: Insomnia Last Admin: 05/20/22 02:39 Dose: 50 mg Allergies Allergies Allergy/AdvReac Type Severity Reaction Status Date / Time aspirin [ASPIRIN] Allergy Unknown SENSITIVITY Verified 04/30/22 13:04 lisinopril Allergy Unknown falls, Verified 04/30/22 13:04 muscle weakness Assessment & Plan Assessment & Plan (1) Borderline personality disorder: Status: Acute Code(s): F60.3 - Borderline personality disorder Plan 1. continue tx. 05/20/2022: No changes to current treatment plan. Will adjust Advil to 800 mg as needed up to 3 times per day consistent with patient's home regimen I spent minutes with the patient and/or on the patient floor today, greater than?50% of which was spent counseling/coordinating care. Reason for contiued inpatient stay Substantial Risk for: harm to self
[2022-05-20 15:00] VITALS: BP 134/86; PULSE 78
[2022-05-20] MEDS: Ibuprofen 800 MG TABLET PO ×2 (15:52→22:33)
[2022-05-20 18:40] VITALS: BP 148/78; PULSE 82; O2SAT 97
[2022-05-20 22:30] VITALS: BP 148/79; PULSE 75; RESP 18; TEMP 36.9; O2SAT 99
[2022-05-21] MEDS: Hydrocortisone 1 % Ointment 28.35 GM TUBE 1 APPL TOPICAL (00:23)
[2022-05-21] MEDS: traZODone HCL 50 MG TABLET PO (03:06)
[2022-05-21] MEDS: Cyclobenzaprine HCl 10 MG TABLET PO ×2 (03:06→23:18)
[2022-05-21] MEDS: Gabapentin 300 MG CAPSULE 900 MG PO ×4 (07:11→19:51)
[2022-05-21] MEDS: Omeprazole 20 MG CAPSULE.DR PO (07:11)
[2022-05-21 08:20] VITALS: BP 127/81; PULSE 85; RESP 18; TEMP 36.8; O2SAT 98
[2022-05-21] MEDS: Aspirin Enteric Coated 81 MG TABLET.DR PO (08:22)
[2022-05-21] MEDS: carvediloL 12.5 MG TABLET PO ×2 (08:22→19:51)
[2022-05-21] MEDS: Magnesium Oxide 400 MG TABLET PO (08:23)
[2022-05-21] MEDS: Clopidogrel Bisulfate 75 MG TABLET PO (08:23)
[2022-05-21] MEDS: Multivitamin TABLET 1 TAB PO (08:23)
[2022-05-21] MEDS: Atorvastatin Calcium 80 MG TABLET PO (08:23)
[2022-05-21] MEDS: DULoxetine HCl 60 MG CAPSULE.DR PO (08:23)
[2022-05-21] MEDS: Fludrocortisone Acetate 0.1 MG TABLET PO (08:23)
[2022-05-21] MEDS: Midodrine HCl 5 MG TABLET PO (08:29)
[2022-05-21] MEDS: Ibuprofen 800 MG TABLET PO (08:29)
[2022-05-21] MEDS: hydrOXYzine HCL 25 MG TABLET 50 MG PO ×2 (09:13→14:35)
[2022-05-21 13:30] VITALS: BP 161/86; PULSE 83; O2SAT 98
--- NOTE | 2022-05-21 13:41 | HO.PSYCHPN ---
Subjective Subjective Date of Service: 05/21/22 Reason For Visit: SI Interim History: Met with patient. Chart reviewed. Continues to report overall feeling much less anxious and less depressed. Speech is slightly less pressured today. Reports sleeping well last night and the Flexeril help with muscle spasms. Reports this is much better today. Overall less scared and paranoid today. Feeling supported. Sparing use of PRNs. Feels more hopeful today. Medication Compliance: Yes Side effects from medications: No Attending Groups: Yes Review of Systems Acute medical concerns: No Review of Systems Review of Systems Unremarkable Mental Status Exam Mental Status Exam Narrative: pleasant. Engaged. Hospital clothing. Less pressured in speech and tangential. Reports feeling less anxious and less depressed. No SI. No HI. No agitation or psychosis. Insight and judgment okay Diagnostics Vital Signs (24Hr): Vital Signs - 24 hr 05/20/22 18:40 05/20/22 15:00 05/20/22 22:30 Temperature 98.5 F Pulse Rate 82 78 75 Respiratory Rate 18 Blood Pressure 148/78 H 134/86 148/79 H Pulse Oximetry 97 99 Oxygen Delivery Method Room Air Room Air 05/21/22 08:20 Temperature 98.3 F Pulse Rate 85 Respiratory Rate 18 Blood Pressure 127/81 Pulse Oximetry 98 Oxygen Delivery Method Room Air BMI result Body Mass Index 29.7 Labs Results: 05/15/22 10:32 05/16/22 08:44 Medications Medications Current Medications Acetaminophen (Acetaminophen 325 Mg Tablet) 650 mg PO Q6H PRN PRN Reason: Headache/Pain Mild Scale (1-3) Last Admin: 05/19/22 06:21 Dose: 650 mg Al Hydroxide/Mg Hydroxide (Magnesium Hydrox/Alum Hydrox 30 Ml Oral.Susp) 30 ml PO Q6H PRN PRN Reason: Heartburn/Nausea Aspirin (Aspirin Enteric Coated 81 Mg Tablet.) 81 mg PO DAILY [facility] Last Admin: 05/21/22 08:22 Dose: 81 mg Atorvastatin Calcium (Atorvastatin Calcium 80 Mg Tablet) 80 mg PO DAILY [facility] Last Admin: 05/21/22 08:23 Dose: 80 mg Carvedilol (Carvedilol 12.5 Mg Tablet) 12.5 mg PO BID [facility] Last Admin: 05/21/22 08:22 Dose: 12.5 mg Clopidogrel Bisulfate (Clopidogrel Bisulfate 75 Mg Tablet) 75 mg PO DAILY [facility] Last Admin: 05/21/22 08:23 Dose: 75 mg Cyclobenzaprine HCl (Cyclobenzaprine Hcl 10 Mg Tablet) 10 mg PO TID PRN PRN Reason: Muscle Spasm Duloxetine HCl (Duloxetine Hcl 60 Mg Capsule.Dr) 60 mg PO DAILY [facility] Last Admin: 05/21/22 08:23 Dose: 60 mg Fludrocortisone Acetate (Fludrocortisone Acetate 0.1 Mg Tablet) 0.1 mg PO DAILY [facility] Last Admin: 05/21/22 08:23 Dose: 0.1 mg Gabapentin (Gabapentin 300 Mg Capsule) 900 mg PO BID@0700,1900 [facility] Last Admin: 05/21/22 07:11 Dose: 900 mg Gabapentin (Gabapentin 300 Mg Capsule) 900 mg PO BID@1100,1500 [facility] Last Admin: 05/21/22 10:53 Dose: 900 mg Hydrocortisone (Hydrocortisone 1 % Ointment 28.35 Gm Tube) 1 appl TOPICAL BID PRN; Protocol PRN Reason: left hand Last Admin: 05/21/22 00:23 Dose: 1 appl Hydroxyzine HCl (Hydroxyzine Hcl 25 Mg Tablet) 50 mg PO Q4H PRN PRN Reason: Anxiety Last Admin: 05/21/22 09:13 Dose: 50 mg Ibuprofen (Ibuprofen 800 Mg Tablet) 800 mg PO Q8H PRN PRN Reason: Pain, Moderate (Pain Scale 4-6 Last Admin: 05/21/22 08:29 Dose: 800 mg Lactic Acid (Ammonium Lactate 12 % Cream 140 Gm Tube) 1 appl TOPICAL BID PRN; Protocol PRN Reason: Dry Skin Last Admin: 05/20/22 02:16 Dose: 1 appl Magnesium Hydroxide (Milk Of Magnesia 30 Ml Oral.Susp) 30 ml PO DAILY PRN PRN Reason: Constipation Magnesium Oxide (Magnesium Oxide 400 Mg Tablet) 400 mg PO DAILY [facility] Last Admin: 05/21/22 08:23 Dose: 400 mg Midodrine (Midodrine Hcl 5 Mg Tablet) 5 mg PO TID@0900,1300,1800 [facility] Last Admin: 05/21/22 08:29 Dose: 5 mg Multi-Ingred Cream/Lotion/Oil/Oint (Mineral Oil/Petrolatum,White 106 Gm Tube) 1 appl TOPICAL BID [facility]; Protocol Last Admin: 05/21/22 10:36 Dose: Not Given Multivitamins/Vitamin C (Multivitamin Tablet) 1 tab PO DAILY [facility] Last Admin: 05/21/22 08:23 Dose: 1 tab Nicotine (Nicotine 21 Mg Patch.Td24) 21 mg TRANSDERMA DAILY PRN PRN Reason: nicotine cravings Omeprazole (Omeprazole 20 Mg Capsule.Dr) 20 mg PO DAILY@0630 [facility] Last Admin: 05/21/22 07:11 Dose: 20 mg Trazodone HCl (Trazodone Hcl 50 Mg Tablet) 50 mg PO BEDTIME PRN PRN Reason: Insomnia Last Admin: 05/21/22 03:06 Dose: 50 mg Allergies Allergies Allergy/AdvReac Type Severity Reaction Status Date / Time aspirin [ASPIRIN] Allergy Unknown SENSITIVITY Verified 04/30/22 13:04 lisinopril Allergy Unknown falls, Verified 04/30/22 13:04 muscle weakness Assessment & Plan Assessment & Plan (1) Borderline personality disorder: Status: Acute Code(s): F60.3 - Borderline personality disorder Plan 1. continue tx. 05/21/2022: No changes to current treatment plan. I spent minutes with the patient and/or on the patient floor today, greater than?50% of which was spent counseling/coordinating care. Reason for contiued inpatient stay Substantial Risk for: harm to self
[2022-05-21 18:00] VITALS: BP 190/106; PULSE 84; RESP 18; TEMP 36.5; O2SAT 100
[2022-05-21 22:45] VITALS: BP 140/76; PULSE 81; RESP 18; TEMP 36.6; O2SAT 99
[2022-05-22] MEDS: traZODone HCL 50 MG TABLET PO ×3 (01:04→21:50)
[2022-05-22] MEDS: hydrOXYzine HCL 25 MG TABLET 50 MG PO ×3 (01:04→21:17)
[2022-05-22] MEDS: Ibuprofen 800 MG TABLET PO ×3 (02:32→21:17)
[2022-05-22] MEDS: Aspirin Enteric Coated 81 MG TABLET.DR PO (07:55)
[2022-05-22] MEDS: Gabapentin 300 MG CAPSULE 900 MG PO ×4 (07:56→21:16)
[2022-05-22] MEDS: Clopidogrel Bisulfate 75 MG TABLET PO (07:56)
[2022-05-22] MEDS: Omeprazole 20 MG CAPSULE.DR PO (07:57)
[2022-05-22] MEDS: DULoxetine HCl 60 MG CAPSULE.DR PO (07:57)
[2022-05-22] MEDS: Magnesium Oxide 400 MG TABLET PO (07:57)
[2022-05-22] MEDS: carvediloL 12.5 MG TABLET PO ×2 (07:58→21:16)
[2022-05-22] MEDS: Atorvastatin Calcium 80 MG TABLET PO (07:58)
[2022-05-22] MEDS: Multivitamin TABLET 1 TAB PO (07:58)
[2022-05-22 08:00] VITALS: BP 159/104; PULSE 88; TEMP 36.3; O2SAT 99
[2022-05-22 12:06] VITALS: BP 147/83; PULSE 88; O2SAT 100
[2022-05-22] MEDS: LORazepam 1 MG TABLET PO (15:48)
--- NOTE | 2022-05-22 15:48 | P.PNPSI_ITS ---
Subjective Subjective Date of Service: 05/22/22 Reason For Visit: SI Interim History: hyperverbal, digressive. labile, accusing hospital/medical establishment of having misled/lied to her once again, cites this experience as why she never trusts anyone (asserts she was promised at admission she would be receiving individual psychotherapy for PTSD here). appears bright, talkative, yet continues to endorse SI with plan to jump. willing to meet with AVELINO and MD tomorrow to discuss dispo planning. Mental Status Exam Mental Status Exam Narrative: calm, cooperative. no PMA/PMR. speech nml rate, loudness. incr amount, decr latency. thoughts digressive and over-inclusive of detail, perhaps evasive and dilatory. affect full range, normo-intense, labile. +SI with plan to jump from a roof. no HI/AVH expressed. Diagnostics Vital Signs (24Hr): Vital Signs - 24 hr 05/21/22 18:00 05/21/22 22:45 05/22/22 08:00 Temperature 97.7 F 97.8 F 97.4 F Pulse Rate 84 81 88 Respiratory Rate 18 18 Blood Pressure 190/106 H 140/76 H 159/104 H Pulse Oximetry 100 99 99 Oxygen Delivery Method Room Air Room Air Room Air 05/22/22 12:06 Temperature Pulse Rate 88 Respiratory Rate Blood Pressure 147/83 H Pulse Oximetry 100 Oxygen Delivery Method Room Air BMI result Body Mass Index 29.7 Labs Results: 05/15/22 10:32 05/16/22 08:44 Medications Medications Current Medications Acetaminophen (Acetaminophen 325 Mg Tablet) 650 mg PO Q6H PRN PRN Reason: Headache/Pain Mild Scale (1-3) Last Admin: 05/19/22 06:21 Dose: 650 mg Al Hydroxide/Mg Hydroxide (Magnesium Hydrox/Alum Hydrox 30 Ml Oral.Susp) 30 ml PO Q6H PRN PRN Reason: Heartburn/Nausea Aspirin (Aspirin Enteric Coated 81 Mg Tablet.) 81 mg PO DAILY [facility] Last Admin: 05/22/22 07:55 Dose: 81 mg Atorvastatin Calcium (Atorvastatin Calcium 80 Mg Tablet) 80 mg PO DAILY [facility] Last Admin: 05/22/22 07:58 Dose: 80 mg Carvedilol (Carvedilol 12.5 Mg Tablet) 12.5 mg PO BID [facility] Last Admin: 05/22/22 07:58 Dose: 12.5 mg Clopidogrel Bisulfate (Clopidogrel Bisulfate 75 Mg Tablet) 75 mg PO DAILY [facility] Last Admin: 05/22/22 07:56 Dose: 75 mg Cyclobenzaprine HCl (Cyclobenzaprine Hcl 10 Mg Tablet) 10 mg PO TID PRN PRN Reason: Muscle Spasm Last Admin: 05/21/22 23:18 Dose: 10 mg Duloxetine HCl (Duloxetine Hcl 60 Mg Capsule.Dr) 60 mg PO DAILY [facility] Last Admin: 05/22/22 07:57 Dose: 60 mg Fludrocortisone Acetate (Fludrocortisone Acetate 0.1 Mg Tablet) 0.1 mg PO DAILY [facility] Last Admin: 05/22/22 07:58 Dose: Not Given Gabapentin (Gabapentin 300 Mg Capsule) 900 mg PO BID@0700,1700 [facility] Gabapentin (Gabapentin 300 Mg Capsule) 900 mg PO BID@1300,2100 [facility] Hydrocortisone (Hydrocortisone 1 % Ointment 28.35 Gm Tube) 1 appl TOPICAL BID PRN; Protocol PRN Reason: left hand Last Admin: 05/21/22 00:23 Dose: 1 appl Hydroxyzine HCl (Hydroxyzine Hcl 25 Mg Tablet) 50 mg PO Q4H PRN PRN Reason: Anxiety Last Admin: 05/22/22 08:13 Dose: 50 mg Ibuprofen (Ibuprofen 800 Mg Tablet) 800 mg PO Q8H PRN PRN Reason: Pain, Moderate (Pain Scale 4-6 Last Admin: 05/22/22 13:17 Dose: 800 mg Lactic Acid (Ammonium Lactate 12 % Cream 140 Gm Tube) 1 appl TOPICAL BID PRN; Protocol PRN Reason: Dry Skin Last Admin: 05/20/22 02:16 Dose: 1 appl Lorazepam (Lorazepam 1 Mg Tablet) 1 mg PO DAILY PRN PRN Reason: severe anxiety Magnesium Hydroxide (Milk Of Magnesia 30 Ml Oral.Susp) 30 ml PO DAILY PRN PRN Reason: Constipation Magnesium Oxide (Magnesium Oxide 400 Mg Tablet) 400 mg PO DAILY [facility] Last Admin: 05/22/22 07:57 Dose: 400 mg Midodrine (Midodrine Hcl 5 Mg Tablet) 5 mg PO TID@0900,1300,1800 [facility] Last Admin: 05/22/22 13:19 Dose: Not Given Multi-Ingred Cream/Lotion/Oil/Oint (Mineral Oil/Petrolatum,White 106 Gm Tube) 1 appl TOPICAL BID [facility]; Protocol Last Admin: 05/22/22 07:59 Dose: Not Given Multivitamins/Vitamin C (Multivitamin Tablet) 1 tab PO DAILY [facility] Last Admin: 05/22/22 07:58 Dose: 1 tab Nicotine (Nicotine 21 Mg Patch.Td24) 21 mg TRANSDERMA DAILY PRN PRN Reason: nicotine cravings Omeprazole (Omeprazole 20 Mg Capsule.Dr) 20 mg PO DAILY@0630 [facility] Last Admin: 05/22/22 07:57 Dose: 20 mg Trazodone HCl (Trazodone Hcl 50 Mg Tablet) 50 mg PO BEDTIME PRN PRN Reason: Insomnia Last Admin: 05/22/22 02:33 Dose: 50 mg Allergies Allergies Allergy/AdvReac Type Severity Reaction Status Date / Time aspirin [ASPIRIN] Allergy Unknown SENSITIVITY Verified 04/30/22 13:04 lisinopril Allergy Unknown falls, Verified 04/30/22 13:04 muscle weakness Assessment & Plan Assessment & Plan (1) Borderline personality disorder: Status: Acute Code(s): F60.3 - Borderline personality disorder Plan 05/16: continue outpt meds for now. cardiology consult for mgmt of BP and opinion on QTc mgmt. OT eval for ambulation and need for shelter. build rapport, consider mood/anxiety medication as indicated. Patient educated on: diagnosis and substance abuse 05/17: per OT: She should continue using the walker. Her biggest issue is her orthostatic hypotension and frequently syncopizes (not in past 2 weeks though). As for her ability to live independently, yes, from a purely musculoskeletal standpoint. per Cardiology: 1) reduce midodrine to 5 mg TID, give 30 min prior to meals. 2) reduce carvedilol to 12.5 BID. 3) continue fludrocortisone as is. 4) BP Q3H WA. 5) hold midodrine for SBP > 150 or DBP > 95. 6) hold fludrocortisone if SBP > 150. 7) hold carvedilol if SBP < 110. 8) replete Mg to above 2. 9) replete K to above 4. 10) QTc up to 500 ms is acceptable for now. psych: stable presentation. 05/18: BP improved. gabapentin increased to 900 QID as of today.? otherwise continue current mgmt. 05/19: continue tx. 05/20: No changes to current treatment plan.? Will adjust Advil to 800 mg as needed up to 3 times per day consistent with patient's home regimen 05/21: No changes to current treatment plan. 05/22: wrist brace for carpal tunnel complaints. ativan 1 mg daily PRN for severe anxiety, only while hospitalized. very wordy today, seemingly evasive about discussing substantive issues regarding her Tx here and dispo planning. I spent ___35___ minutes with the patient and/or on the patient floor today, g reater than?50% of which was spent counseling/coordinating care. Reason for contiued inpatient stay Substantial Risk for: harm to self Time Spent With Patient Time: Total time managing care of this patient today ____ minutes.
[2022-05-22] MEDS: Cyclobenzaprine HCl 10 MG TABLET PO (17:13)
[2022-05-22 18:00] VITALS: BP 149/75; PULSE 81
[2022-05-22 21:15] VITALS: BP 121/75; PULSE 84; RESP 16; TEMP 36.4; O2SAT 100
[2022-05-22] MEDS: Mineral Oil/Petrolatum,White 106 GM Tube 1 APPL TOPICAL (21:53)
[2022-05-23] MEDS: traZODone HCL 50 MG TABLET PO (01:27)
[2022-05-23] MEDS: Cyclobenzaprine HCl 10 MG TABLET PO ×3 (01:27→21:08)
[2022-05-23 01:51] VITALS: BP 105/67; PULSE 76; RESP 16; TEMP 36.6; O2SAT 99
[2022-05-23] MEDS: Gabapentin 300 MG CAPSULE 900 MG PO ×3 (06:22→21:07)
[2022-05-23] MEDS: Ibuprofen 800 MG TABLET PO (06:22)
[2022-05-23] MEDS: Omeprazole 20 MG CAPSULE.DR PO (06:22)
[2022-05-23 08:45] VITALS: BP 154/84; PULSE 83; RESP 16; TEMP 36.6; O2SAT 97
[2022-05-23] MEDS: Aspirin Enteric Coated 81 MG TABLET.DR PO (08:46)
[2022-05-23] MEDS: Magnesium Oxide 400 MG TABLET PO (08:46)
[2022-05-23] MEDS: Atorvastatin Calcium 80 MG TABLET PO (08:46)
[2022-05-23] MEDS: carvediloL 12.5 MG TABLET PO (08:46)
[2022-05-23] MEDS: DULoxetine HCl 60 MG CAPSULE.DR PO (08:46)
[2022-05-23] MEDS: Clopidogrel Bisulfate 75 MG TABLET PO (08:47)
[2022-05-23] MEDS: Fludrocortisone Acetate 0.1 MG TABLET PO (08:47)
[2022-05-23] MEDS: Multivitamin TABLET 1 TAB PO (08:47)
[2022-05-23] MEDS: Mineral Oil/Petrolatum,White 106 GM Tube 1 APPL TOPICAL (09:30)
[2022-05-23] MEDS: LORazepam 1 MG TABLET PO (12:00)
[2022-05-23 12:30] VITALS: BP 165/87; PULSE 85; RESP 18; O2SAT 98
--- NOTE | 2022-05-23 17:23 | P.PNPSI_ITS ---
Subjective Subjective Date of Service: 05/23/22 Reason For Visit: SI Interim History: seen in her room. c/o foot pain from neuropathy, plantar fasciitis, etc. reports she needs wheelchair, she can't walk, nobody will help her. accuses staff, including this display card writer, of sadism in deriving tamie from watching her suffer. specifically, she alleges that MD recently intentionally made mistakes in ordering her medications which directly led to worsening of her neuropathic pain. generally hateful, blaming. asserts that bcse of the treatment she has received here she is going to jump from a roof with a note attached to her that explains all of the terrible ways [facility] staff mistreat patients. demanding medical care for all and , c/o being denied appropriate medical care. as MD left the room, she instructed MD not to come back. per staff, appetite good. attending to ADLs. anx 9, dep 8. no AVH. no HI. intermittent SI. eves anx/dep worse. c/o poor sleep. irritable, labile. Mental Status Exam Mental Status Exam Narrative: calm, cooperative. no PMA/PMR. speech nml rate, loudness. incr amount, decr latency. thoughts digressive and over-inclusive of detail, perhaps evasive and dilatory, generally negativistic and accusatory. affect constricted, hyperintense, labile. +SI with plan to jump from a roof. no HI/AVH expressed. Diagnostics Vital Signs (24Hr): Vital Signs - 24 hr 05/22/22 18:00 05/22/22 21:15 05/23/22 01:51 Temperature 97.6 F 97.9 F Pulse Rate 81 84 76 Respiratory Rate 16 16 Blood Pressure 149/75 H 121/75 105/67 Pulse Oximetry 100 99 Oxygen Delivery Method Room Air Room Air 05/23/22 08:45 05/23/22 12:30 Temperature 97.9 F Pulse Rate 83 85 Respiratory Rate 16 18 Blood Pressure 154/84 H 165/87 H Pulse Oximetry 97 98 Oxygen Delivery Method Room Air Room Air BMI result Body Mass Index 29.7 Labs Results: 05/15/22 10:32 05/16/22 08:44 Imaging Radiology Impressions: ITS Impressions Venous Duplex 05/22/22 21:36 IMPRESSION: No DVT demonstrated in the left lower extremity. Medications Medications Current Medications Acetaminophen (Acetaminophen 325 Mg Tablet) 650 mg PO Q6H PRN PRN Reason: Headache/Pain Mild Scale (1-3) Last Admin: 05/19/22 06:21 Dose: 650 mg Al Hydroxide/Mg Hydroxide (Magnesium Hydrox/Alum Hydrox 30 Ml Oral.Susp) 30 ml PO Q6H PRN PRN Reason: Heartburn/Nausea Aspirin (Aspirin Enteric Coated 81 Mg Tablet.) 81 mg PO DAILY [facility] Last Admin: 05/23/22 08:46 Dose: 81 mg Atorvastatin Calcium (Atorvastatin Calcium 80 Mg Tablet) 80 mg PO DAILY [facility] Last Admin: 05/23/22 08:46 Dose: 80 mg Carvedilol (Carvedilol 12.5 Mg Tablet) 12.5 mg PO BID [facility] Last Admin: 05/23/22 08:46 Dose: 12.5 mg Clopidogrel Bisulfate (Clopidogrel Bisulfate 75 Mg Tablet) 75 mg PO DAILY [facility] Last Admin: 05/23/22 08:47 Dose: 75 mg Cyclobenzaprine HCl (Cyclobenzaprine Hcl 10 Mg Tablet) 10 mg PO Q6H PRN PRN Reason: Muscle Spasm Duloxetine HCl (Duloxetine Hcl 60 Mg Capsule.) 60 mg PO DAILY [facility] Last Admin: 05/23/22 08:46 Dose: 60 mg Fludrocortisone Acetate (Fludrocortisone Acetate 0.1 Mg Tablet) 0.1 mg PO DAILY [facility] Last Admin: 05/23/22 08:47 Dose: 0.1 mg Gabapentin (Gabapentin 300 Mg Capsule) 900 mg PO BID@0630,1500 [facility] Gabapentin (Gabapentin 300 Mg Capsule) 900 mg PO BID@1100,2100 [facility] Hydrocortisone (Hydrocortisone 1 % Ointment 28.35 Gm Tube) 1 appl TOPICAL BID PRN; Protocol PRN Reason: left hand Last Admin: 05/21/22 00:23 Dose: 1 appl Hydroxyzine HCl (Hydroxyzine Hcl 25 Mg Tablet) 50 mg PO Q4H PRN PRN Reason: Anxiety Last Admin: 05/22/22 21:17 Dose: 50 mg Ibuprofen (Ibuprofen 800 Mg Tablet) 800 mg PO Q8H PRN PRN Reason: Pain, Moderate (Pain Scale 4-6 Last Admin: 05/23/22 06:22 Dose: 800 mg Lactic Acid (Ammonium Lactate 12 % Cream 140 Gm Tube) 1 appl TOPICAL BID PRN; Protocol PRN Reason: Dry Skin Last Admin: 05/20/22 02:16 Dose: 1 appl Lorazepam (Lorazepam 1 Mg Tablet) 1 mg PO DAILY PRN PRN Reason: severe anxiety Last Admin: 05/23/22 12:00 Dose: 1 mg Magnesium Hydroxide (Milk Of Magnesia 30 Ml Oral.Susp) 30 ml PO DAILY PRN PRN Reason: Constipation Magnesium Oxide (Magnesium Oxide 400 Mg Tablet) 400 mg PO DAILY [facility] Last Admin: 05/23/22 08:46 Dose: 400 mg Midodrine (Midodrine Hcl 5 Mg Tablet) 5 mg PO TID@0900,1300,1800 [facility] Last Admin: 05/23/22 13:30 Dose: Not Given Multi-Ingred Cream/Lotion/Oil/Oint (Mineral Oil/Petrolatum,White 106 Gm Tube) 1 appl TOPICAL BID [facility]; Protocol Last Admin: 05/23/22 09:30 Dose: 1 appl Multivitamins/Vitamin C (Multivitamin Tablet) 1 tab PO DAILY [facility] Last Admin: 05/23/22 08:47 Dose: 1 tab Nicotine (Nicotine 21 Mg Patch.Td24) 21 mg TRANSDERMA DAILY PRN PRN Reason: nicotine cravings Omeprazole (Omeprazole 20 Mg Capsule.Dr) 20 mg PO DAILY@0630 [facility] Last Admin: 05/23/22 06:22 Dose: 20 mg Trazodone HCl (Trazodone Hcl 50 Mg Tablet) 50 mg PO BEDTIME PRN PRN Reason: Insomnia Last Admin: 05/23/22 01:27 Dose: 50 mg Allergies Allergies Allergy/AdvReac Type Severity Reaction Status Date / Time aspirin [ASPIRIN] Allergy Unknown SENSITIVITY Verified 04/30/22 13:04 lisinopril Allergy Unknown falls, Verified 04/30/22 13:04 muscle weakness Assessment & Plan Assessment & Plan (1) Borderline personality disorder: Status: Acute Code(s): F60.3 - Borderline personality disorder Plan 05/16: continue outpt meds for now. cardiology consult for mgmt of BP and opinion on QTc mgmt. OT eval for ambulation and need for jail. build rapport, consider mood/anxiety medication as indicated. Patient educated on: diagnosis and substance abuse 05/17: per OT: She should continue using the walker. Her biggest issue is her orthostatic hypotension and frequently syncopizes (not in past 2 weeks though). As for her ability to live independently, yes, from a purely musculoskeletal standpoint. per Cardiology: 1) reduce midodrine to 5 mg TID, give 30 min prior to meals. 2) reduce carvedilol to 12.5 BID. 3) continue fludrocortisone as is. 4) BP Q3H WA. 5) hold midodrine for SBP > 150 or DBP > 95. 6) hold fludrocortisone if SBP > 150. 7) hold carvedilol if SBP < 110. 8) replete Mg to above 2. 9) replete K to above 4. 10) QTc up to 500 ms is acceptable for now. psych: stable presentation. 05/18: BP improved. gabapentin increased to 900 QID as of today.? otherwise continue current mgmt. 05/19: continue tx. 05/20: No changes to current treatment plan.? Will adjust Advil to 800 mg as needed up to 3 times per day consistent with patient's home regimen 05/21: No changes to current treatment plan. 05/22: wrist brace for carpal tunnel complaints. ativan 1 mg daily PRN for severe anxiety, only while hospitalized. very wordy today, seemingly evasive about discussing substantive issues regarding her Tx here and dispo planning. 05/23: extremely denigrating and accusatory, asserting staff enjoy her suffering and are intentionally doing things to make her suffer. demanding medical attention for myriad complaints, historical and chronic as well as more recent. alleging withholding of care. demanding to have a wheelchair, states she cannot ambulate due to foot pain. PT eval for wheelchair, T/C med consult for prominent and acute complaints. I spent ___25___ minutes with the patient and/or on the patient floor today, greater than?50% of which was spent counseling/coordinating care. Reason for contiued inpatient stay Substantial Risk for: harm to self, inability to function and rapid decompensation Time Spent With Patient Time: Total time managing care of this patient today ____ minutes.
[2022-05-23 18:12] VITALS: BP 130/79; PULSE 83; TEMP 37.1; O2SAT 97
--- NOTE | 2022-05-23 18:13 | PC.NURSE ---
Dr. Pardo gave verbal permission to administer 1300 Gabapentin early,
[2022-05-23 21:00] VITALS: BP 139/77; PULSE 85; RESP 16; TEMP 36.4; O2SAT 98
--- NOTE | 2022-05-23 22:19 | PC.NURSE ---
Pt reports she is refusing any medication that isn't gabapentin including cardiac meds. Pt states I'm just going to stroke out. Apparently everyone in this place enjoys torture and watching me suffer . Pt educated on importance of adhering to cardiac medications, she still declined.
[2022-05-24] MEDS: Ibuprofen 800 MG TABLET PO ×2 (01:22→11:10)
--- NOTE | 2022-05-24 01:34 | PC.NURSE ---
At approx. 0120 pt requested to speak with RN, asked for ibuprofen for persistent headache. When RN brought medication at 0125, a red stain was noted on pt's blanket, when asked what it was pt replied oh it's just blood, I got it on my fingers when I touched my head . RN observed a small round wound on pt's right mu-ism, appeared like a puncture wound, approx. 0.5cm width with dried blood on the side of her face. Pt would not answer questions about what happened, stated it's fine, I'll clean the blood off later . RN alerted charge nurse. Attempts were made to inspect pt further and obtain information about what occurred, pt refused to talk and covered the wound with a pillow. Pt became agitated, raising her voice, and calling RN names and ordering RNs to leave her room. Sharp objects/pens/utensils removed from pt's area of the room. Blood soiled blanket removed and pt provided with a clean blanket. Incident report filed.
--- NOTE | 2022-05-24 05:45 | PC.NURSE ---
patient frequently referring to t/w as a ''fucking bitch'' and ''bitch'' referring to day of admission when t/w responded to patient verbalizing wanting to leave and being offered a 3 day notice. ''I didn't sign one'' and when ''you said you could sign on my behalf that was illegal'' patient approaching the desk and looking at t/w. when asked if she needed help began to yell and again swear again. when t/w moved away from patient and referred her to her RN patient tracked and stood in front of t/w again. did accepted re direction from covering nurse after some time contemplating request.
[2022-05-24] MEDS: Gabapentin 300 MG CAPSULE 900 MG PO ×4 (06:15→20:23)
[2022-05-24] MEDS: Cyclobenzaprine HCl 10 MG TABLET PO ×3 (09:00→22:18)
[2022-05-24] MEDS: Mineral Oil/Petrolatum,White 106 GM Tube 1 APPL TOPICAL (09:00)
[2022-05-24 09:07] VITALS: BP 178/84; PULSE 95; RESP 20; TEMP 36.5; O2SAT 95
[2022-05-24 09:19] VITALS: BP 178/84; PULSE 95; O2SAT 95
[2022-05-24 12:30] VITALS: BP 141/72; PULSE 97; RESP 18; TEMP 36; O2SAT 98
--- NOTE | 2022-05-24 15:22 | HO.PSYCHPN ---
Subjective Subjective Date of Service: 05/24/22 Reason For Visit: SI Interim History: pt declines to meet with MD, says she's not in the mood, says she'll just be a bitch anyway and that MD will lie to you anyway, they all do. interdisciplinary mtg held re pt's care, with angel franco, eduard, tanvir, rosalina, sandra taking part. placed on 1:1 due to self-harm last night. per staff, seen by PT, asking for wheelchair. c/o severe pain in feet. verbally aggressive toward staff. endorsing SI, banging neck and pulling out hair. Mental Status Exam Mental Status Exam Narrative: calm, not cooperative. no PMA/PMR. speech nml rate, loudness, amount. decr latency. thoughts aggresive, critical of self and others. affect constricted, hyperintense, non-labile. no SI/HI/AVH expressed. lartge bruised area over right neck into occipital area. Diagnostics Vital Signs (24Hr): Vital Signs - 24 hr 05/23/22 18:12 05/23/22 21:00 05/24/22 09:07 Temperature 98.7 F 97.6 F 97.7 F Pulse Rate 83 85 95 Respiratory Rate 16 20 Blood Pressure 130/79 139/77 178/84 H Pulse Oximetry 97 98 95 Oxygen Delivery Method Room Air Room Air Room Air 05/24/22 09:19 Temperature Pulse Rate 95 Respiratory Rate Blood Pressure 178/84 H Pulse Oximetry 95 Oxygen Delivery Method BMI result Body Mass Index 29.7 Labs Results: 05/15/22 10:32 05/16/22 08:44 Imaging Radiology Impressions: ITS Impressions Venous Duplex 05/22/22 21:36 IMPRESSION: No DVT demonstrated in the left lower extremity. Medications Medications Current Medications Acetaminophen (Acetaminophen 325 Mg Tablet) 650 mg PO Q6H PRN PRN Reason: Headache/Pain Mild Scale (1-3) Last Admin: 05/19/22 06:21 Dose: 650 mg Al Hydroxide/Mg Hydroxide (Magnesium Hydrox/Alum Hydrox 30 Ml Oral.Susp) 30 ml PO Q6H PRN PRN Reason: Heartburn/Nausea Aspirin (Aspirin Enteric Coated 81 Mg Tablet.) 81 mg PO DAILY [facility] Last Admin: 05/24/22 08:57 Dose: Not Given Atorvastatin Calcium (Atorvastatin Calcium 80 Mg Tablet) 80 mg PO DAILY [facility] Last Admin: 05/24/22 08:57 Dose: Not Given Carvedilol (Carvedilol 12.5 Mg Tablet) 12.5 mg PO BID [facility] Last Admin: 05/24/22 08:57 Dose: Not Given Clopidogrel Bisulfate (Clopidogrel Bisulfate 75 Mg Tablet) 75 mg PO DAILY [facility] Last Admin: 05/24/22 08:58 Dose: Not Given Cyclobenzaprine HCl (Cyclobenzaprine Hcl 10 Mg Tablet) 10 mg PO Q6H PRN PRN Reason: Muscle Spasm Last Admin: 05/24/22 09:00 Dose: 10 mg Duloxetine HCl (Duloxetine Hcl 60 Mg Capsule.Dr) 60 mg PO DAILY [facility] Last Admin: 05/24/22 08:58 Dose: Not Given Fludrocortisone Acetate (Fludrocortisone Acetate 0.1 Mg Tablet) 0.1 mg PO DAILY [facility] Last Admin: 05/24/22 08:59 Dose: Not Given Gabapentin (Gabapentin 300 Mg Capsule) 900 mg PO BID@0630,1500 [facility] Last Admin: 05/24/22 14:57 Dose: 900 mg Gabapentin (Gabapentin 300 Mg Capsule) 900 mg PO BID@1100,2100 [facility] Last Admin: 05/24/22 11:06 Dose: 900 mg Hydrocortisone (Hydrocortisone 1 % Ointment 28.35 Gm Tube) 1 appl TOPICAL BID PRN; Protocol PRN Reason: left hand Last Admin: 05/21/22 00:23 Dose: 1 appl Hydroxyzine HCl (Hydroxyzine Hcl 25 Mg Tablet) 50 mg PO Q4H PRN PRN Reason: Anxiety Last Admin: 05/22/22 21:17 Dose: 50 mg Ibuprofen (Ibuprofen 800 Mg Tablet) 800 mg PO Q8H PRN PRN Reason: Pain, Moderate (Pain Scale 4-6 Last Admin: 05/24/22 11:10 Dose: 800 mg Lactic Acid (Ammonium Lactate 12 % Cream 140 Gm Tube) 1 appl TOPICAL BID PRN; Protocol PRN Reason: Dry Skin Last Admin: 05/20/22 02:16 Dose: 1 appl Lorazepam (Lorazepam 1 Mg Tablet) 1 mg PO DAILY PRN PRN Reason: severe anxiety Last Admin: 05/23/22 12:00 Dose: 1 mg Magnesium Hydroxide (Milk Of Magnesia 30 Ml Oral.Susp) 30 ml PO DAILY PRN PRN Reason: Constipation Magnesium Oxide (Magnesium Oxide 400 Mg Tablet) 400 mg PO DAILY [facility] Last Admin: 05/24/22 08:59 Dose: Not Given Midodrine (Midodrine Hcl 5 Mg Tablet) 5 mg PO TID@0900,1300,1800 [facility] Last Admin: 05/24/22 13:46 Dose: Not Given Multi-Ingred Cream/Lotion/Oil/Oint (Mineral Oil/Petrolatum,White 106 Gm Tube) 1 appl TOPICAL BID [facility]; Protocol Last Admin: 05/24/22 09:00 Dose: 1 appl Multivitamins/Vitamin C (Multivitamin Tablet) 1 tab PO DAILY [facility] Last Admin: 05/24/22 09:00 Dose: Not Given Nicotine (Nicotine 21 Mg Patch.Td24) 21 mg TRANSDERMA DAILY PRN PRN Reason: nicotine cravings Omeprazole (Omeprazole 20 Mg Capsule.Dr) 20 mg PO DAILY@0630 [facility] Last Admin: 05/24/22 06:16 Dose: Not Given Trazodone HCl (Trazodone Hcl 50 Mg Tablet) 50 mg PO BEDTIME PRN PRN Reason: Insomnia Last Admin: 05/23/22 01:27 Dose: 50 mg Allergies Allergies Allergy/AdvReac Type Severity Reaction Status Date / Time aspirin [ASPIRIN] Allergy Unknown SENSITIVITY Verified 04/30/22 13:04 lisinopril Allergy Unknown falls, Verified 04/30/22 13:04 muscle weakness Assessment & Plan Assessment & Plan (1) Borderline personality disorder: Status: Acute Code(s): F60.3 - Borderline personality disorder Plan 05/16: continue outpt meds for now. cardiology consult for mgmt of BP and opinion on QTc mgmt. OT eval for ambulation and need for long-term. build rapport, consider mood/anxiety medication as indicated. Patient educated on: diagnosis and substance abuse 05/17: per OT: She should continue using the walker. Her biggest issue is her orthostatic hypotension and frequently syncopizes (not in past 2 weeks though). As for her ability to live independently, yes, from a purely musculoskeletal standpoint. per Cardiology: 1) reduce midodrine to 5 mg TID, give 30 min prior to meals. 2) reduce carvedilol to 12.5 BID. 3) continue fludrocortisone as is. 4) BP Q3H WA. 5) hold midodrine for SBP > 150 or DBP > 95. 6) hold fludrocortisone if SBP > 150. 7) hold carvedilol if SBP < 110. 8) replete Mg to above 2. 9) replete K to above 4. 10) QTc up to 500 ms is acceptable for now. psych: stable presentation. 05/18: BP improved. gabapentin increased to 900 QID as of today.? otherwise continue current mgmt. 05/19: continue tx. 05/20: No changes to current treatment plan.? Will adjust Advil to 800 mg as needed up to 3 times per day consistent with patient's home regimen 05/21: No changes to current treatment plan. 05/22: wrist brace for carpal tunnel complaints. ativan 1 mg daily PRN for severe anxiety, only while hospitalized. very wordy today, seemingly evasive about discussing substantive issues regarding her Tx here and dispo planning. 05/23: extremely denigrating and accusatory, asserting staff enjoy her suffering and are intentionally doing things to make her suffer. demanding medical attention for myriad complaints, historical and chronic as well as more recent. alleging withholding of care. demanding to have a wheelchair, states she cannot ambulate due to foot pain. PT eval for wheelchair, T/C med consult for prominent and acute complaints. 05/24: declines mtg with MD, saying she is not in the mood. interdisciplinary mtg held re pt's care, plan to pursue more collateral, check [facility], refer for [facility] services made. I spent __45____ minutes with the patient and/or on the patient floor today, greater than?50% of which was spent counseling/coordinating care. Reason for contiued inpatient stay Substantial Risk for: harm to self, inability to function and rapid decompensation Time Spent With Patient Time: Total time managing care of this patient today ____ minutes.
--- NOTE | 2022-05-24 15:46 | PC.NURSE ---
Patient observed with large ecchymotic area on r side of neck, up into base of head. Reports she did it herself, asked if she were punching herself, stated hay and doors . States about 50 times'. I was checking my eyes for dilation . Believes staff is intentionally trying to make her suffer. MD made aware, implemented and maintained on 1:1. Frequently making reference to inability to receive medical care here because it is a psychiatric floor. Feels slighted, no one cares . Pulling strands of hair out, frequently stating she is going to pull her hair out. Frequent complaining about services here. Refusing medications, accepted Gabapentin and Flexeril. Makes reference to the consequences of not taking medical medications and inability to intervene due to DNR status. Ambulating independently. Visible in milieu.
[2022-05-24 16:04] VITALS: BP 160/88; PULSE 91; RESP 18; TEMP 36.6; O2SAT 96
[2022-05-24 19:15] VITALS: BP 147/75; PULSE 95; RESP 16; TEMP 36.3; O2SAT 100
[2022-05-24] MEDS: LORazepam 1 MG TABLET PO (20:23)
[2022-05-24] MEDS: traZODone HCL 50 MG TABLET PO (22:18)
[2022-05-25] MEDS: Ibuprofen 800 MG TABLET PO ×2 (03:08→16:02)
[2022-05-25] MEDS: traZODone HCL 50 MG TABLET PO (03:08)
[2022-05-25] MEDS: Gabapentin 300 MG CAPSULE 900 MG PO ×4 (06:10→21:02)
[2022-05-25 07:00] VITALS: BMI 29.3
--- NOTE | 2022-05-25 08:30 | PC.NURSE ---
Pt. was seen by OT in the group room for administration of the MOCA due to concerns about cognitive status. Pt. received a score of 26/30, indicating in tact cognition. Questions where the pt. lost points included answering 2/5 words correctly on the delayed recall and being able to recall the month and year but not the date.
[2022-05-25 09:00] VITALS: BP 146/86; PULSE 102; RESP 18; TEMP 36.6; O2SAT 98
[2022-05-25] MEDS: hydrOXYzine HCL 25 MG TABLET 50 MG PO (09:05)
[2022-05-25] MEDS: Cyclobenzaprine HCl 10 MG TABLET PO ×2 (09:06→21:02)
--- NOTE | 2022-05-25 14:23 | HO.PSYCHPN ---
Subjective Subjective Date of Service: 05/25/22 Reason For Visit: SI Interim History: irritable, critical, provocative. placed on 1:1 for SIB. seen by PT, asking for wheelchair. PT opined no wheelchair clearly indicated. c/o severe pain in LE B/L. verbally aggressive with staff. endorsing SI. banging neck and pulling out hair. Mental Status Exam Mental Status Exam Narrative: calm, somewhat cooperative. no PMA/PMR. speech incr rate, loudness, amount. decr latency. thoughts aggresive, critical of self and others. affect constricted, hyperintense, mod-labile. +SI. no HI/AVH expressed. large bruised area over right neck into occipital area. Diagnostics Vital Signs (24Hr): Vital Signs - 24 hr 05/24/22 16:04 05/24/22 19:15 05/25/22 09:00 Temperature 97.8 F 97.4 F 97.9 F Pulse Rate 91 95 102 H Respiratory Rate 18 16 18 Blood Pressure 160/88 H 147/75 H 146/86 H Pulse Oximetry 96 100 98 Oxygen Delivery Method Room Air Room Air Room Air BMI result Body Mass Index 29.3 Labs Results: 05/15/22 10:32 05/16/22 08:44 Imaging Radiology Impressions: ITS Impressions Venous Duplex 05/22/22 21:36 IMPRESSION: No DVT demonstrated in the left lower extremity. Medications Medications Current Medications Acetaminophen (Acetaminophen 325 Mg Tablet) 650 mg PO Q6H PRN PRN Reason: Headache/Pain Mild Scale (1-3) Last Admin: 05/19/22 06:21 Dose: 650 mg Al Hydroxide/Mg Hydroxide (Magnesium Hydrox/Alum Hydrox 30 Ml Oral.Susp) 30 ml PO Q6H PRN PRN Reason: Heartburn/Nausea Aspirin (Aspirin Enteric Coated 81 Mg Tablet.) 81 mg PO DAILY [facility] Last Admin: 05/25/22 09:05 Dose: Not Given Atorvastatin Calcium (Atorvastatin Calcium 80 Mg Tablet) 80 mg PO DAILY [facility] Last Admin: 05/25/22 10:27 Dose: Not Given Carvedilol (Carvedilol 12.5 Mg Tablet) 12.5 mg PO BID [facility] Last Admin: 05/25/22 10:27 Dose: Not Given Clopidogrel Bisulfate (Clopidogrel Bisulfate 75 Mg Tablet) 75 mg PO DAILY [facility] Last Admin: 05/25/22 10:27 Dose: Not Given Cyclobenzaprine HCl (Cyclobenzaprine Hcl 10 Mg Tablet) 10 mg PO Q6H PRN PRN Reason: Muscle Spasm Last Admin: 05/25/22 09:06 Dose: 10 mg Duloxetine HCl (Duloxetine Hcl 60 Mg Capsule.Dr) 60 mg PO DAILY [facility] Last Admin: 05/25/22 10:27 Dose: Not Given Fludrocortisone Acetate (Fludrocortisone Acetate 0.1 Mg Tablet) 0.1 mg PO DAILY [facility] Last Admin: 05/25/22 10:27 Dose: Not Given Gabapentin (Gabapentin 300 Mg Capsule) 900 mg PO BID@0630,1500 [facility] Last Admin: 05/25/22 06:10 Dose: 900 mg Gabapentin (Gabapentin 300 Mg Capsule) 900 mg PO BID@1100,2100 [facility] Last Admin: 05/25/22 11:27 Dose: 900 mg Hydrocortisone (Hydrocortisone 1 % Ointment 28.35 Gm Tube) 1 appl TOPICAL BID PRN; Protocol PRN Reason: left hand Last Admin: 05/21/22 00:23 Dose: 1 appl Hydroxyzine HCl (Hydroxyzine Hcl 25 Mg Tablet) 50 mg PO Q4H PRN PRN Reason: Anxiety Last Admin: 05/25/22 09:05 Dose: 50 mg Ibuprofen (Ibuprofen 800 Mg Tablet) 800 mg PO Q8H PRN PRN Reason: Pain, Moderate (Pain Scale 4-6 Last Admin: 05/25/22 03:08 Dose: 800 mg Lactic Acid (Ammonium Lactate 12 % Cream 140 Gm Tube) 1 appl TOPICAL BID PRN; Protocol PRN Reason: Dry Skin Last Admin: 05/20/22 02:16 Dose: 1 appl Lorazepam (Lorazepam 1 Mg Tablet) 1 mg PO DAILY PRN PRN Reason: severe anxiety Last Admin: 05/24/22 20:23 Dose: 1 mg Magnesium Hydroxide (Milk Of Magnesia 30 Ml Oral.Susp) 30 ml PO DAILY PRN PRN Reason: Constipation Magnesium Oxide (Magnesium Oxide 400 Mg Tablet) 400 mg PO DAILY [facility] Last Admin: 05/25/22 10:28 Dose: Not Given Midodrine (Midodrine Hcl 5 Mg Tablet) 5 mg PO TID@0900,1300,1800 [facility] Last Admin: 05/25/22 14:01 Dose: Not Given Multi-Ingred Cream/Lotion/Oil/Oint (Mineral Oil/Petrolatum,White 106 Gm Tube) 1 appl TOPICAL BID [facility]; Protocol Last Admin: 05/25/22 10:28 Dose: Not Given Multivitamins/Vitamin C (Multivitamin Tablet) 1 tab PO DAILY [facility] Last Admin: 05/25/22 10:28 Dose: Not Given Nicotine (Nicotine 21 Mg Patch.Td24) 21 mg TRANSDERMA DAILY PRN PRN Reason: nicotine cravings Omeprazole (Omeprazole 20 Mg Capsule.Dr) 20 mg PO DAILY@0630 [facility] Last Admin: 05/25/22 06:21 Dose: Not Given Trazodone HCl (Trazodone Hcl 50 Mg Tablet) 50 mg PO BEDTIME PRN PRN Reason: Insomnia Last Admin: 05/25/22 03:08 Dose: 50 mg Allergies Allergies Allergy/AdvReac Type Severity Reaction Status Date / Time aspirin [ASPIRIN] Allergy Unknown SENSITIVITY Verified 04/30/22 13:04 lisinopril Allergy Unknown falls, Verified 04/30/22 13:04 muscle weakness Assessment & Plan Assessment & Plan (1) Borderline personality disorder: Status: Acute Code(s): F60.3 - Borderline personality disorder Plan 05/16: continue outpt meds for now. cardiology consult for mgmt of BP and opinion on QTc mgmt. OT eval for ambulation and need for usp. build rapport, consider mood/anxiety medication as indicated. Patient educated on: diagnosis and substance abuse 05/17: per OT: She should continue using the walker. Her biggest issue is her orthostatic hypotension and frequently syncopizes (not in past 2 weeks though). As for her ability to live independently, yes, from a purely musculoskeletal standpoint. per Cardiology: 1) reduce midodrine to 5 mg TID, give 30 min prior to meals. 2) reduce carvedilol to 12.5 BID. 3) continue fludrocortisone as is. 4) BP Q3H WA. 5) hold midodrine for SBP > 150 or DBP > 95. 6) hold fludrocortisone if SBP > 150. 7) hold carvedilol if SBP < 110. 8) replete Mg to above 2. 9) replete K to above 4. 10) QTc up to 500 ms is acceptable for now. psych: stable presentation. 05/18: BP improved. gabapentin increased to 900 QID as of today.? otherwise continue current mgmt. 05/19: continue tx. 05/20: No changes to current treatment plan.? Will adjust Advil to 800 mg as needed up to 3 times per day consistent with patient's home regimen 05/21: No changes to current treatment plan. 05/22: wrist brace for carpal tunnel complaints. ativan 1 mg daily PRN for severe anxiety, only while hospitalized. very wordy today, seemingly evasive about discussing substantive issues regarding her Tx here and dispo planning. 05/23: extremely denigrating and accusatory, asserting staff enjoy her suffering and are intentionally doing things to make her suffer. demanding medical attention for myriad complaints, historical and chronic as well as more recent. alleging withholding of care. demanding to have a wheelchair, states she cannot ambulate due to foot pain. PT eval for wheelchair, T/C med consult for prominent and acute complaints. 05/24: declines mtg with MD, saying she is not in the mood. interdisciplinary mtg held re pt's care, plan to pursue more collateral, check MoCA, refer for [facility] services made. 05/25: quite angry/pressured with litany of complaints today. MoCA . placed on 1:1 for SIB. I spent ___35___ minutes with the patient and/or on the patient floor today, greater than?50% of which was spent counseling/coordinating care. Reason for contiued inpatient stay Substantial Risk for: harm to self, inability to function and rapid decompensation Time Spent With Patient Time: Total time managing care of this patient today ____ minutes.
--- NOTE | 2022-05-25 18:21 | PC.NURSE ---
Evon allowed VS this morning and then has been refusing through the remainder of the shift. No need. She is refusing most of her medications including plavix, carvedilol and aspirin and Dr Pardo was informed. Concerns regarding her DNR/ DNI MOLST status and SI and recent self injurious behavior were brought to her provider Dr Pardo and Rosaura Fairchild and Nighat Banks in administration. MRI ordered by Dr Pardo. Pt is currently refusing stating, It's too late. Noone cared yesterday.
[2022-05-25 20:16] VITALS: BP 181/95; PULSE 88; RESP 16; TEMP 36.3; O2SAT 99
[2022-05-26] MEDS: Ibuprofen 800 MG TABLET PO ×2 (00:02→13:47)
[2022-05-26] MEDS: Gabapentin 300 MG CAPSULE 900 MG PO ×4 (06:43→21:03)
[2022-05-26 08:46] VITALS: BP 185/106; PULSE 126; RESP 18; TEMP 36.8; O2SAT 94
--- NOTE | 2022-05-26 09:55 | PC.NURSE ---
Evon's vital signs this morning were 185/106, HR 126, 94%, 18, 98.3. She is refusing all meds including those for blood pressure and anticoagulation. This information was reported to Dr Pardo and Nighat Banks.
[2022-05-26] MEDS: Cyclobenzaprine HCl 10 MG TABLET PO ×2 (11:32→18:33)
[2022-05-26] MEDS: Hydrocortisone 1 % Ointment 28.35 GM TUBE 1 APPL TOPICAL (11:56)
--- NOTE | 2022-05-26 16:01 | HO.PSYCHPN ---
Subjective Subjective Date of Service: 05/26/22 Reason For Visit: SI Interim History: seen in late afternoon after MRI brain, results discussed. critical of staff. discussion held around Tx of pain as well as mood. discussion turns to the fact she has not been taking her medical medications, dot for HTN, recently. also, her discomfort and irritation at being on 1:1. states she has no intention of hurting herself again and will not do so if off 1:1. MD agrees to take her from 1:1 and put her on Q5 min checks as a trial. pt offers to start taking her medical meds in exchange (this barter was not offered or requested by MD, and MD explicitly disconnected the two actions for pt while also encouraging her to take her medications). per staff, adversarial, ruminative re perceived sleights. refusing medical meds. irritable, labile, attention-seeking. slept after 314. initially refused [facility] carey yesterday. Mental Status Exam Mental Status Exam Narrative: cooperative. no PMA/PMR. speech incr rate, loudness, amount. decr latency. thoughts aggressive, critical of self and others. affect constricted, hyperintense, mod-labile. intermittent SI. no HI/AVH expressed. large bruised area over right neck into occipital area. Diagnostics Vital Signs (24Hr): Vital Signs - 24 hr 05/25/22 20:16 05/26/22 08:46 Temperature 97.3 F 98.3 F Pulse Rate 88 126 H Respiratory Rate 16 18 Blood Pressure 181/95 H 185/106 H Pulse Oximetry 99 94 Oxygen Delivery Method Room Air Room Air BMI result Body Mass Index 29.3 Labs Results: 05/15/22 10:32 05/16/22 08:44 Imaging Radiology Impressions: ITS Impressions Venous Duplex 05/22/22 21:36 IMPRESSION: No DVT demonstrated in the left lower extremity. Brain MRI 05/26/22 13:18 IMPRESSION: There are scattered nonspecific signal changes primarily involving the periventricular white matter. There is a single focus of T2 FLAIR signal hyperintensity within the left nick with associated ill-defined enhancement on postcontrast imaging. This finding could represent a small developmental venous anomaly or capillary telangiectasia. The possibility of active demyelination in the setting of suspected demyelinating disease cannot be definitively excluded but is felt to be less likely based on the distribution of chronic white matter disease. A follow-up brain MRI without and with contrast can be obtained at 6 months to assess the stability of this finding. Otherwise no abnormal enhancement visualized elsewhere within the [id number] of this examination. No evidence of acute territorial infarct or hemorrhage. Medications Medications Current Medications Acetaminophen (Acetaminophen 325 Mg Tablet) 650 mg PO Q6H PRN PRN Reason: Headache/Pain Mild Scale (1-3) Last Admin: 05/19/22 06:21 Dose: 650 mg Al Hydroxide/Mg Hydroxide (Magnesium Hydrox/Alum Hydrox 30 Ml Oral.Susp) 30 ml PO Q6H PRN PRN Reason: Heartburn/Nausea Aspirin (Aspirin Enteric Coated 81 Mg Tablet.) 81 mg PO DAILY [facility] Last Admin: 05/26/22 08:54 Dose: Not Given Atorvastatin Calcium (Atorvastatin Calcium 80 Mg Tablet) 80 mg PO DAILY [facility] Last Admin: 05/26/22 08:54 Dose: Not Given Carvedilol (Carvedilol 12.5 Mg Tablet) 12.5 mg PO BID [facility] Last Admin: 05/26/22 08:54 Dose: Not Given Clopidogrel Bisulfate (Clopidogrel Bisulfate 75 Mg Tablet) 75 mg PO DAILY [facility] Last Admin: 05/26/22 08:54 Dose: Not Given Cyclobenzaprine HCl (Cyclobenzaprine Hcl 10 Mg Tablet) 10 mg PO Q6H PRN PRN Reason: Muscle Spasm Last Admin: 05/26/22 11:32 Dose: 10 mg Duloxetine HCl (Duloxetine Hcl 60 Mg Capsule.) 60 mg PO DAILY [facility] Last Admin: 05/26/22 08:55 Dose: Not Given Fludrocortisone Acetate (Fludrocortisone Acetate 0.1 Mg Tablet) 0.1 mg PO DAILY [facility] Last Admin: 05/26/22 08:55 Dose: Not Given Gabapentin (Gabapentin 300 Mg Capsule) 900 mg PO BID@0630,1500 [facility] Last Admin: 05/26/22 15:10 Dose: 900 mg Gabapentin (Gabapentin 300 Mg Capsule) 900 mg PO BID@1100,2100 [facility] Last Admin: 05/26/22 11:32 Dose: 900 mg Hydrocortisone (Hydrocortisone 1 % Ointment 28.35 Gm Tube) 1 appl TOPICAL BID PRN; Protocol PRN Reason: left hand Last Admin: 05/26/22 11:56 Dose: 1 appl Ibuprofen (Ibuprofen 800 Mg Tablet) 800 mg PO Q8H PRN PRN Reason: Pain, Moderate (Pain Scale 4-6 Last Admin: 05/26/22 13:47 Dose: 800 mg Lactic Acid (Ammonium Lactate 12 % Cream 140 Gm Tube) 1 appl TOPICAL BID PRN; Protocol PRN Reason: Dry Skin Last Admin: 05/20/22 02:16 Dose: 1 appl Lorazepam (Lorazepam 1 Mg Tablet) 1 mg PO Q4H PRN PRN Reason: severe anxiety Magnesium Hydroxide (Milk Of Magnesia 30 Ml Oral.Susp) 30 ml PO DAILY PRN PRN Reason: Constipation Magnesium Oxide (Magnesium Oxide 400 Mg Tablet) 400 mg PO DAILY [facility] Last Admin: 05/26/22 08:55 Dose: Not Given Midodrine (Midodrine Hcl 5 Mg Tablet) 5 mg PO TID@0900,1300,1800 [facility] Last Admin: 05/26/22 13:49 Dose: Not Given Multi-Ingred Cream/Lotion/Oil/Oint (Mineral Oil/Petrolatum,White 106 Gm Tube) 1 appl TOPICAL BID [facility]; Protocol Last Admin: 05/26/22 08:59 Dose: Not Given Multivitamins/Vitamin C (Multivitamin Tablet) 1 tab PO DAILY [facility] Last Admin: 05/26/22 08:55 Dose: Not Given Nicotine (Nicotine 21 Mg Patch.Td24) 21 mg TRANSDERMA DAILY PRN PRN Reason: nicotine cravings Omeprazole (Omeprazole 20 Mg Capsule.Dr) 20 mg PO DAILY@0630 [facility] Last Admin: 05/26/22 06:43 Dose: Not Given Trazodone HCl (Trazodone Hcl 50 Mg Tablet) 50 mg PO BEDTIME PRN PRN Reason: Insomnia Last Admin: 05/25/22 03:08 Dose: 50 mg Allergies Allergies Allergy/AdvReac Type Severity Reaction Status Date / Time aspirin [ASPIRIN] Allergy Unknown SENSITIVITY Verified 04/30/22 13:04 lisinopril Allergy Unknown falls, Verified 04/30/22 13:04 muscle weakness Assessment & Plan Assessment & Plan (1) Borderline personality disorder: Status: Acute Code(s): F60.3 - Borderline personality disorder Plan 05/16: continue outpt meds for now. cardiology consult for mgmt of BP and opinion on QTc mgmt. OT eval for ambulation and need for nursing home. build rapport, consider mood/anxiety medication as indicated. Patient educated on: diagnosis and substance abuse 05/17: per OT: She should continue using the walker. Her biggest issue is her orthostatic hypotension and frequently syncopizes (not in past 2 weeks though). As for her ability to live independently, yes, from a purely musculoskeletal standpoint. per Cardiology: 1) reduce midodrine to 5 mg TID, give 30 min prior to meals. 2) reduce carvedilol to 12.5 BID. 3) continue fludrocortisone as is. 4) BP Q3H WA. 5) hold midodrine for SBP > 150 or DBP > 95. 6) hold fludrocortisone if SBP > 150. 7) hold carvedilol if SBP < 110. 8) replete Mg to above 2. 9) replete K to above 4. 10) QTc up to 500 ms is acceptable for now. psych: stable presentation. 05/18: BP improved. gabapentin increased to 900 QID as of today.? otherwise continue current mgmt. 05/19: continue tx. 05/20: No changes to current treatment plan.? Will adjust Advil to 800 mg as needed up to 3 times per day consistent with patient's home regimen 05/21: No changes to current treatment plan. 05/22: wrist brace for carpal tunnel complaints. ativan 1 mg daily PRN for severe anxiety, only while hospitalized. very wordy today, seemingly evasive about discussing substantive issues regarding her Tx here and dispo planning. 05/23: extremely denigrating and accusatory, asserting staff enjoy her suffering and are intentionally doing things to make her suffer. demanding medical attention for myriad complaints, historical and chronic as well as more recent. alleging withholding of care. demanding to have a wheelchair, states she cannot ambulate due to foot pain. PT eval for wheelchair, T/C med consult for prominent and acute complaints. 05/24: declines mtg with MD, saying she is not in the mood. interdisciplinary mtg held re pt's care, plan to pursue more collateral, check [facility], refer for [facility] services made. 05/25: quite angry/pressured with litany of complaints today. [facility] . placed on 1:1 for SIB. 05/26: periods of collaboration and calm today, interspersed with the recent aggressiveness and criticality. OBS decreased to Q5 min checks at pt request. she reports she will begin to take her medications again in response. denying any SIBI, states she will refrain from engaging in such. I spent ___35___ minutes with the patient and/or on the patient floor today, greater than?50% of which was spent counseling/coordinating care. Reason for contiued inpatient stay Substantial Risk for: harm to self, inability to function and rapid decompensation Time Spent With Patient Time: Total time managing care of this patient today ____ minutes.
[2022-05-26] MEDS: LORazepam 1 MG TABLET PO (16:40)
[2022-05-26 17:00] VITALS: BP 127/79; PULSE 86; O2SAT 94
[2022-05-26 21:00] VITALS: BP 107/71; PULSE 100; RESP 16; TEMP 36.1; O2SAT 100
[2022-05-26] MEDS: traZODone HCL 50 MG TABLET PO (21:03)
[2022-05-26] MEDS: Mineral Oil/Petrolatum,White 106 GM Tube 1 APPL TOPICAL (21:05)
[2022-05-27 06:00] VITALS: BP 113/67; PULSE 109; RESP 16; TEMP 36.3; O2SAT 99
[2022-05-27] MEDS: Gabapentin 300 MG CAPSULE 900 MG PO ×4 (06:45→22:01)
[2022-05-27] MEDS: Omeprazole 20 MG CAPSULE.DR PO (06:46)
[2022-05-27 08:30] VITALS: BP 114/76; PULSE 110; RESP 18; TEMP 36.4; O2SAT 99
[2022-05-27] MEDS: DULoxetine HCl 60 MG CAPSULE.DR PO (08:49)
[2022-05-27] MEDS: Clopidogrel Bisulfate 75 MG TABLET PO (08:49)
[2022-05-27] MEDS: Fludrocortisone Acetate 0.1 MG TABLET PO (08:49)
[2022-05-27] MEDS: Multivitamin TABLET 1 TAB PO (08:50)
[2022-05-27] MEDS: Atorvastatin Calcium 80 MG TABLET PO (08:50)
[2022-05-27] MEDS: carvediloL 12.5 MG TABLET PO ×2 (08:51→22:02)
[2022-05-27] MEDS: Aspirin Enteric Coated 81 MG TABLET.DR PO (08:51)
[2022-05-27] MEDS: Magnesium Oxide 400 MG TABLET PO (08:51)
[2022-05-27] MEDS: Cyclobenzaprine HCl 10 MG TABLET PO ×2 (08:51→16:33)
[2022-05-27] MEDS: Mineral Oil/Petrolatum,White 106 GM Tube 1 APPL TOPICAL ×2 (08:52→22:03)
[2022-05-27] MEDS: LORazepam 1 MG TABLET PO ×3 (09:26→17:52)
[2022-05-27] MEDS: Ammonium Lactate 12 % Cream 140 GM TUBE 1 APPL TOPICAL (09:27)
[2022-05-27] MEDS: Hydrocortisone 1 % Ointment 28.35 GM TUBE 1 APPL TOPICAL (09:27)
[2022-05-27 14:05] VITALS: BP 109/77; PULSE 99; RESP 20; O2SAT 100
[2022-05-27] MEDS: Midodrine HCl 5 MG TABLET PO ×2 (14:23→17:51)
--- NOTE | 2022-05-27 14:30 | PC.NURSE ---
Pt requested a LINA notified Rosa Zapata . she said no, that she would have to wait until Sunday, when regular psychiatrist is back . Evon was notified of the decision. She verbalized understanding.
--- NOTE | 2022-05-27 15:26 | HO.PSYCHPN ---
Subjective Subjective Date of Service: 07/23/22 Reason For Visit: SI Interim History: med complaint irritable, labile, attention-seeking. not easily engaged. Medication Compliance: No Side effects from medications: No Review of Systems Medical Review of Systems: unchanged Review of Systems Review of Systems Unremarkable Yes all other systems are reviewed and are negative Constitutional: Reports no additional constitutional complaints Eyes: Reports no additional eye complaints Cardiovascular: Denies chest pain, Denies syncope, Reports rapid heart rate, Denies leg edema, Denies lightheadedness, Denies Loss of Consciousness, Denies palpitations and Denies dyspnea Respiratory: Reports no additional respiratory complaints and Denies dyspnea Gastrointestinal: Reports no additional gastrointestinal complaints Musculoskeletal: Reports no additional musculoskeletal complaints and Reports abnormal gait Skin/Breast: Reports system reviewed and no additional complaints, except as docu Reports abnormal gait, Denies syncope, Reports paresthesias and Reports other (Neuropathic pain) Psychiatric: Reports anxiety, Reports mood swings and Reports suicidal ideation Endocrine: Denies palpitations Mental Status Exam Mental Status Exam Narrative: cooperative. no PMA/PMR. speech incr rate, loudness, amount. decr latency. thoughts aggressive, critical of self and others. affect constricted, hyperintense, mod-labile. intermittent SI. no HI/AVH expressed. large bruised area over right neck into occipital area. Patient Appearance: Appropriate Patient Orientation: Person, Place, Time and Situation Level of Consciousness: Alert Patient Behavior: Talkative, Cooperative and Good Eye Contact Mood Description: Calm and Appropriate Affect Description: Calm and Appropriate Patient Cognition Impaired: No Ability to Follow Directions: Good Speech Pattern: Spontaneous Speech Memory Description: Intact Diagnostics Vital Signs (24Hr): Vital Signs - 24 hr 05/26/22 17:00 05/26/22 21:00 05/27/22 06:00 Temperature 97 F 97.4 F Pulse Rate 86 100 109 H Respiratory Rate 16 16 Blood Pressure 127/79 107/71 113/67 Pulse Oximetry 94 100 99 Oxygen Delivery Method Room Air Room Air Room Air 05/27/22 08:30 05/27/22 14:05 Temperature 97.6 F Pulse Rate 110 H 99 Respiratory Rate 18 20 Blood Pressure 114/76 109/77 Pulse Oximetry 99 100 Oxygen Delivery Method Room Air Room Air BMI result Body Mass Index 29.3 Labs 05/15/22 10:32 05/16/22 08:44 Imaging Radiology Impressions: ITS Impressions Venous Duplex 05/22/22 21:36 IMPRESSION: No DVT demonstrated in the left lower extremity. Brain MRI 05/26/22 13:18 IMPRESSION: There are scattered nonspecific signal changes primarily involving the periventricular white matter. There is a single focus of T2 FLAIR signal hyperintensity within the left nick with associated ill-defined enhancement on postcontrast imaging. This finding could represent a small developmental venous anomaly or capillary telangiectasia. The possibility of active demyelination in the setting of suspected demyelinating disease cannot be definitively excluded but is felt to be less likely based on the distribution of chronic white matter disease. A follow-up brain MRI without and with contrast can be obtained at 6 months to assess the stability of this finding. Otherwise no abnormal enhancement visualized elsewhere within the [id number] of this examination. No evidence of acute territorial infarct or hemorrhage. Medications Medications Current Medications Acetaminophen (Acetaminophen 325 Mg Tablet) 650 mg PO Q6H PRN PRN Reason: Headache/Pain Mild Scale (1-3) Last Admin: 05/19/22 06:21 Dose: 650 mg Al Hydroxide/Mg Hydroxide (Magnesium Hydrox/Alum Hydrox 30 Ml Oral.Susp) 30 ml PO Q6H PRN PRN Reason: Heartburn/Nausea Aspirin (Aspirin Enteric Coated 81 Mg Tablet.) 81 mg PO DAILY [facility] Last Admin: 05/27/22 08:51 Dose: 81 mg Atorvastatin Calcium (Atorvastatin Calcium 80 Mg Tablet) 80 mg PO DAILY [facility] Last Admin: 05/27/22 08:50 Dose: 80 mg Carvedilol (Carvedilol 12.5 Mg Tablet) 12.5 mg PO BID [facility] Last Admin: 05/27/22 08:51 Dose: 12.5 mg Clopidogrel Bisulfate (Clopidogrel Bisulfate 75 Mg Tablet) 75 mg PO DAILY [facility] Last Admin: 05/27/22 08:49 Dose: 75 mg Cyclobenzaprine HCl (Cyclobenzaprine Hcl 10 Mg Tablet) 10 mg PO Q6H PRN PRN Reason: Muscle Spasm Last Admin: 05/27/22 08:51 Dose: 10 mg Duloxetine HCl (Duloxetine Hcl 60 Mg Capsule.) 60 mg PO DAILY [facility] Last Admin: 05/27/22 08:49 Dose: 60 mg Fludrocortisone Acetate (Fludrocortisone Acetate 0.1 Mg Tablet) 0.1 mg PO DAILY [facility] Last Admin: 05/27/22 08:49 Dose: 0.1 mg Gabapentin (Gabapentin 300 Mg Capsule) 900 mg PO BID@0630,1500 [facility] Last Admin: 05/27/22 06:45 Dose: 900 mg Gabapentin (Gabapentin 300 Mg Capsule) 900 mg PO BID@1100,2100 [facility] Last Admin: 05/27/22 11:44 Dose: 900 mg Hydrocortisone (Hydrocortisone 1 % Ointment 28.35 Gm Tube) 1 appl TOPICAL BID PRN; Protocol PRN Reason: left hand Last Admin: 05/27/22 09:27 Dose: 1 appl Ibuprofen (Ibuprofen 800 Mg Tablet) 800 mg PO Q8H PRN PRN Reason: Pain, Moderate (Pain Scale 4-6 Last Admin: 05/26/22 13:47 Dose: 800 mg Lactic Acid (Ammonium Lactate 12 % Cream 140 Gm Tube) 1 appl TOPICAL BID PRN; Protocol PRN Reason: Dry Skin Last Admin: 05/27/22 09:27 Dose: 1 appl Lorazepam (Lorazepam 1 Mg Tablet) 1 mg PO Q4H PRN PRN Reason: severe anxiety Last Admin: 05/27/22 13:44 Dose: 1 mg Magnesium Hydroxide (Milk Of Magnesia 30 Ml Oral.Susp) 30 ml PO DAILY PRN PRN Reason: Constipation Magnesium Oxide (Magnesium Oxide 400 Mg Tablet) 400 mg PO DAILY [facility] Last Admin: 05/27/22 08:51 Dose: 400 mg Midodrine (Midodrine Hcl 5 Mg Tablet) 5 mg PO TID@0900,1300,1800 [facility] Last Admin: 05/27/22 14:23 Dose: 5 mg Multi-Ingred Cream/Lotion/Oil/Oint (Mineral Oil/Petrolatum,White 106 Gm Tube) 1 appl TOPICAL BID [facility]; Protocol Last Admin: 05/27/22 08:52 Dose: 1 appl Multivitamins/Vitamin C (Multivitamin Tablet) 1 tab PO DAILY [facility] Last Admin: 05/27/22 08:50 Dose: 1 tab Nicotine (Nicotine 21 Mg Patch.Td24) 21 mg TRANSDERMA DAILY PRN PRN Reason: nicotine cravings Omeprazole (Omeprazole 20 Mg Capsule.Dr) 20 mg PO DAILY@0630 [facility] Last Admin: 05/27/22 06:46 Dose: 20 mg Trazodone HCl (Trazodone Hcl 50 Mg Tablet) 50 mg PO BEDTIME PRN PRN Reason: Insomnia Last Admin: 05/26/22 21:03 Dose: 50 mg Allergies Allergies Allergy/AdvReac Type Severity Reaction Status Date / Time aspirin [ASPIRIN] Allergy Unknown SENSITIVITY Verified 04/30/22 13:04 lisinopril Allergy Unknown falls, Verified 04/30/22 13:04 muscle weakness Assessment & Plan Assessment & Plan (1) Borderline personality disorder: Status: Acute Code(s): F60.3 - Borderline personality disorder (2) Labile blood pressure: Status: Acute Code(s): R09.89 - Other specified symptoms and signs involving the circulatory and respiratory systems Plan 05/16: continue outpt meds for now. cardiology consult for mgmt of BP and opinion on QTc mgmt. OT eval for ambulation and need for long-term. build rapport, consider mood/anxiety medication as indicated. Patient educated on: diagnosis and substance abuse 05/17: per OT: She should continue using the walker. Her biggest issue is her orthostatic hypotension and frequently syncopizes (not in past 2 weeks though). As for her ability to live independently, yes, from a purely musculoskeletal standpoint. per Cardiology: 1) reduce midodrine to 5 mg TID, give 30 min prior to meals. 2) reduce carvedilol to 12.5 BID. 3) continue fludrocortisone as is. 4) BP Q3H WA. 5) hold midodrine for SBP > 150 or DBP > 95. 6) hold fludrocortisone if SBP > 150. 7) hold carvedilol if SBP < 110. 8) replete Mg to above 2. 9) replete K to above 4. 10) QTc up to 500 ms is acceptable for now. psych: stable presentation. 05/18: BP improved. gabapentin increased to 900 QID as of today.? otherwise continue current mgmt. 05/19: continue tx. 05/20: No changes to current treatment plan.? Will adjust Advil to 800 mg as needed up to 3 times per day consistent with patient's home regimen 05/21: No changes to current treatment plan. 05/22: wrist brace for carpal tunnel complaints. ativan 1 mg daily PRN for severe anxiety, only while hospitalized. very wordy today, seemingly evasive about discussing substantive issues regarding her Tx here and dispo planning. 05/23: extremely denigrating and accusatory, asserting staff enjoy her suffering and are intentionally doing things to make her suffer. demanding medical attention for myriad complaints, historical and chronic as well as more recent. alleging withholding of care. demanding to have a wheelchair, states she cannot ambulate due to foot pain. PT eval for wheelchair, T/C med consult for prominent and acute complaints. 05/24: declines mtg with MD, saying she is not in the mood. interdisciplinary mtg held re pt's care, plan to pursue more collateral, check MoCA, refer for DMH services made. 05/25: quite angry/pressured with litany of complaints today. MoCA . placed on 1:1 for SIB. 05/26: periods of collaboration and calm today, interspersed with the recent aggressiveness and criticality. OBS decreased to Q5 min checks at pt request. she reports she will begin to take her medications again in response. denying any SIBI, states she will refrain from engaging in such. 05/27 continue treatment plan I spent minutes with the patient and/or on the patient floor today, greater than?50% of which was spent counseling/coordinating care. Reason for contiued inpatient stay Substantial Risk for: harm to self, inability to function and rapid decompensation Time Spent With Patient Time: Total time managing care of this patient today ____ minutes.
[2022-05-27] MEDS: Ibuprofen 800 MG TABLET PO (16:33)
[2022-05-27 17:48] VITALS: BP 112/71; PULSE 91; RESP 18
[2022-05-27 19:55] VITALS: RESP 14
[2022-05-27 22:00] VITALS: BP 124/66; PULSE 91; RESP 16; TEMP 36.6; O2SAT 98
[2022-05-27] MEDS: traZODone HCL 50 MG TABLET PO (22:02)
[2022-05-28 06:00] VITALS: BP 93/61; PULSE 91; RESP 16; TEMP 36.5; O2SAT 97
[2022-05-28 06:02] VITALS: BP 104/70; PULSE 98; RESP 16; O2SAT 98
[2022-05-28] MEDS: Omeprazole 20 MG CAPSULE.DR PO (06:33)
[2022-05-28] MEDS: Gabapentin 300 MG CAPSULE 900 MG PO ×4 (06:33→20:59)
[2022-05-28 08:20] VITALS: BP 135/69; PULSE 84; TEMP 36.4; O2SAT 100
[2022-05-28] MEDS: Clopidogrel Bisulfate 75 MG TABLET PO (08:22)
[2022-05-28] MEDS: DULoxetine HCl 60 MG CAPSULE.DR PO (08:22)
[2022-05-28] MEDS: Magnesium Oxide 400 MG TABLET PO (08:22)
[2022-05-28] MEDS: Aspirin Enteric Coated 81 MG TABLET.DR PO (08:22)
[2022-05-28] MEDS: Atorvastatin Calcium 80 MG TABLET PO (08:22)
[2022-05-28] MEDS: Multivitamin TABLET 1 TAB PO (08:23)
[2022-05-28] MEDS: Fludrocortisone Acetate 0.1 MG TABLET PO (08:23)
[2022-05-28] MEDS: carvediloL 12.5 MG TABLET PO (08:23)
[2022-05-28] MEDS: Midodrine HCl 5 MG TABLET PO (08:24)
[2022-05-28] MEDS: LORazepam 1 MG TABLET PO ×3 (08:27→18:40)
--- NOTE | 2022-05-28 09:52 | P.PNPSI_ITS ---
Subjective Subjective Date of Service: 05/28/22 Reason For Visit: SI Interim History: Discussed with team, record reviewed, met with pt. Team report pt has discrepancies with some of the staff and in response has an outlet of head banging. Team report pt is a full code, but has a MOLST in her record and prefers to be DNR/DNI. Pt discussed her DNR position today and rationale. She discussed disagreements with her current care and states that some of the comments made to her by team, in group and indiviudally have been difficult to hear, improper, and traumatizing for her. She believes further training needs to be done to improve consumer services. Discussed recent head banging incident with brusing on her neck States she is working with her MD on a good plan for medicine and will continue this plan as she if finding it effective. Discussed if there is a therapy contact we could discuss with an approach that has worked for pt in the past. She is not able to identify such a contact. Pt is engaged, active and clear today in discussion. Review of Systems Acute medical concerns: No Medical Review of Systems: unchanged Mental Status Exam Mental Status Exam Patient Appearance: Appropriate Patient Orientation: Person, Place, Time and Situation Level of Consciousness: Alert Patient Behavior: Talkative, Cooperative and Good Eye Contact Mood Description: Depressed and Blunted Affect Description: Blunted Patient Cognition Impaired: No Ability to Follow Directions: Good Speech Pattern: Spontaneous Speech Memory Description: Intact Hallucinations: None Delusions: Not Present Perceptual Disturbances: Depersonalization Thought Process: Distracted and Rumination Thought Content: positive for Clio, positive for Circumstantial, positive for Perseveration, positive for Suicidal Ideation and positive for Homicidal Ideation (denies) Depressive Symptoms: Hopelessness, Unhappiness and Thoughts of /Suicide Judgement: Fair Diagnostics Vital Signs (24Hr): Vital Signs - 24 hr 05/27/22 14:05 05/27/22 17:48 05/27/22 19:55 Temperature Pulse Rate 99 91 Respiratory Rate 20 18 14 Blood Pressure 109/77 112/71 Pulse Oximetry 100 Oxygen Delivery Method Room Air 05/27/22 22:00 05/28/22 06:00 05/28/22 06:02 Temperature 97.8 F 97.7 F Pulse Rate 91 91 98 Respiratory Rate 16 16 16 Blood Pressure 124/66 93/61 104/70 Pulse Oximetry 98 97 98 Oxygen Delivery Method Room Air Room Air Room Air 05/28/22 08:20 Temperature 97.6 F Pulse Rate 84 Respiratory Rate Blood Pressure 135/69 Pulse Oximetry 100 Oxygen Delivery Method Room Air BMI result Body Mass Index 29.3 Labs Results: 05/15/22 10:32 05/16/22 08:44 Imaging Radiology Impressions: ITS Impressions Venous Duplex 05/22/22 21:36 IMPRESSION: No DVT demonstrated in the left lower extremity. Brain MRI 05/26/22 13:18 IMPRESSION: There are scattered nonspecific signal changes primarily involving the periventricular white matter. There is a single focus of T2 FLAIR signal hyperintensity within the left nick with associated ill-defined enhancement on postcontrast imaging. This finding could represent a small developmental venous anomaly or capillary telangiectasia. The possibility of active demyelination in the setting of suspected demyelinating disease cannot be definitively excluded but is felt to be less likely based on the distribution of chronic white matter disease. A follow-up brain MRI without and with contrast can be obtained at 6 months to assess the stability of this finding. Otherwise no abnormal enhancement visualized elsewhere within the [id number] of this examination. No evidence of acute territorial infarct or hemorrhage. Medications Medications Current Medications Acetaminophen (Acetaminophen 325 Mg Tablet) 650 mg PO Q6H PRN PRN Reason: Headache/Pain Mild Scale (1-3) Last Admin: 05/19/22 06:21 Dose: 650 mg Al Hydroxide/Mg Hydroxide (Magnesium Hydrox/Alum Hydrox 30 Ml Oral.Susp) 30 ml PO Q6H PRN PRN Reason: Heartburn/Nausea Aspirin (Aspirin Enteric Coated 81 Mg Tablet.) 81 mg PO DAILY [facility] Last Admin: 05/28/22 08:22 Dose: 81 mg Atorvastatin Calcium (Atorvastatin Calcium 80 Mg Tablet) 80 mg PO DAILY [facility] Last Admin: 05/28/22 08:22 Dose: 80 mg Carvedilol (Carvedilol 12.5 Mg Tablet) 12.5 mg PO BID [facility] Last Admin: 05/28/22 08:23 Dose: 12.5 mg Clopidogrel Bisulfate (Clopidogrel Bisulfate 75 Mg Tablet) 75 mg PO DAILY [facility] Last Admin: 05/28/22 08:22 Dose: 75 mg Cyclobenzaprine HCl (Cyclobenzaprine Hcl 10 Mg Tablet) 10 mg PO Q6H PRN PRN Reason: Muscle Spasm Last Admin: 05/27/22 16:33 Dose: 10 mg Duloxetine HCl (Duloxetine Hcl 60 Mg Capsule.Dr) 60 mg PO DAILY [facility] Last Admin: 05/28/22 08:22 Dose: 60 mg Fludrocortisone Acetate (Fludrocortisone Acetate 0.1 Mg Tablet) 0.1 mg PO DAILY [facility] Last Admin: 05/28/22 08:23 Dose: 0.1 mg Gabapentin (Gabapentin 300 Mg Capsule) 900 mg PO BID@0630,1500 [facility] Last Admin: 05/28/22 06:33 Dose: 900 mg Gabapentin (Gabapentin 300 Mg Capsule) 900 mg PO BID@1100,2100 [facility] Last Admin: 05/27/22 22:01 Dose: 900 mg Hydrocortisone (Hydrocortisone 1 % Ointment 28.35 Gm Tube) 1 appl TOPICAL BID PRN; Protocol PRN Reason: left hand Last Admin: 05/27/22 09:27 Dose: 1 appl Ibuprofen (Ibuprofen 800 Mg Tablet) 800 mg PO Q8H PRN PRN Reason: Pain, Moderate (Pain Scale 4-6 Last Admin: 05/27/22 16:33 Dose: 800 mg Lactic Acid (Ammonium Lactate 12 % Cream 140 Gm Tube) 1 appl TOPICAL BID PRN; Protocol PRN Reason: Dry Skin Last Admin: 05/27/22 09:27 Dose: 1 appl Lorazepam (Lorazepam 1 Mg Tablet) 1 mg PO Q4H PRN PRN Reason: severe anxiety Last Admin: 05/28/22 08:27 Dose: 1 mg Magnesium Hydroxide (Milk Of Magnesia 30 Ml Oral.Susp) 30 ml PO DAILY PRN PRN Reason: Constipation Magnesium Oxide (Magnesium Oxide 400 Mg Tablet) 400 mg PO DAILY [facility] Last Admin: 05/28/22 08:22 Dose: 400 mg Midodrine (Midodrine Hcl 5 Mg Tablet) 5 mg PO TID@0900,1300,1800 [facility] Last Admin: 05/28/22 08:24 Dose: 5 mg Multi-Ingred Cream/Lotion/Oil/Oint (Mineral Oil/Petrolatum,White 106 Gm Tube) 1 appl TOPICAL BID [facility]; Protocol Last Admin: 05/28/22 09:01 Dose: Not Given Multivitamins/Vitamin C (Multivitamin Tablet) 1 tab PO DAILY [facility] Last Admin: 05/28/22 08:23 Dose: 1 tab Nicotine (Nicotine 21 Mg Patch.Td24) 21 mg TRANSDERMA DAILY PRN PRN Reason: nicotine cravings Omeprazole (Omeprazole 20 Mg Capsule.) 20 mg PO DAILY@0630 [facility] Last Admin: 05/28/22 06:33 Dose: 20 mg Trazodone HCl (Trazodone Hcl 50 Mg Tablet) 50 mg PO BEDTIME PRN PRN Reason: Insomnia Last Admin: 05/27/22 22:02 Dose: 50 mg Allergies Allergies Allergy/AdvReac Type Severity Reaction Status Date / Time aspirin [ASPIRIN] Allergy Unknown SENSITIVITY Verified 04/30/22 13:04 lisinopril Allergy Unknown falls, Verified 04/30/22 13:04 muscle weakness Assessment & Plan Assessment & Plan (1) Borderline personality disorder: Status: Acute Code(s): F60.3 - Borderline personality disorder Plan 05/16: continue outpt meds for now. cardiology consult for mgmt of BP and opinion on QTc mgmt. OT eval for ambulation and need for shelter. build rapport, consider mood/anxiety medication as indicated. Patient educated on: diagnosis and substance abuse 05/17: per OT: She should continue using the walker. Her biggest issue is her orthostatic hypotension and frequently syncopizes (not in past 2 weeks though). As for her ability to live independently, yes, from a purely musculoskeletal standpoint. per Cardiology: 1) reduce midodrine to 5 mg TID, give 30 min prior to meals. 2) reduce carvedilol to 12.5 BID. 3) continue fludrocortisone as is. 4) BP Q3H WA. 5) hold midodrine for SBP > 150 or DBP > 95. 6) hold fludrocortisone if SBP > 150. 7) hold carvedilol if SBP < 110. 8) replete Mg to above 2. 9) replete K to above 4. 10) QTc up to 500 ms is acceptable for now. psych: stable presentation. 05/18: BP improved. gabapentin increased to 900 QID as of today.? otherwise continue current mgmt. 05/19: continue tx. 05/20: No changes to current treatment plan.? Will adjust Advil to 800 mg as needed up to 3 times per day consistent with patient's home regimen 05/21: No changes to current treatment plan. 05/22: wrist brace for carpal tunnel complaints. ativan 1 mg daily PRN for severe anxiety, only while hospitalized. very wordy today, seemingly evasive about discussing substantive issues regarding her Tx here and dispo planning. 05/23: extremely denigrating and accusatory, asserting staff enjoy her suffering and are intentionally doing things to make her suffer. demanding medical attention for myriad complaints, historical and chronic as well as more recent. alleging withholding of care. demanding to have a wheelchair, states she cannot ambulate due to foot pain. PT eval for wheelchair, T/C med consult for prominent and acute complaints. 05/24: declines mtg with MD, saying she is not in the mood. interdisciplinary mtg held re pt's care, plan to pursue more collateral, check MoCA, refer for DMH services made. 05/25: quite angry/pressured with litany of complaints today. MoCA . placed on 1:1 for SIB. 05/26: periods of collaboration and calm today, interspersed with the recent aggressiveness and criticality. OBS decreased to Q5 min checks at pt request. she reports she will begin to take her medications again in response. denying any SIBI, states she will refrain from engaging in such. 05/28/22 Continue current regime, as she reports she believes it is beginning to work. Discussion of feeling hurt by some team interactions with her-continue to educate re process of therapy and rationale for questions she is asked. I spent minutes with the patient and/or on the patient floor today, gre ater than?50% of which was spent counseling/coordinating care. Patient educated on: therapeutic strategies Informed Consent: further education needed Reason for contiued inpatient stay Substantial Risk for: harm to self, rapid decompensation and med/psych decompensation Time Spent With Patient Time: Total time managing care of this patient today _30___ minutes.
[2022-05-28] MEDS: Cyclobenzaprine HCl 10 MG TABLET PO ×2 (13:00→20:58)
[2022-05-28 13:02] VITALS: BP 162/87; PULSE 80
--- NOTE | 2022-05-28 14:18 | PC.NURSE ---
Patient endorsed being upset d/t meal tray being completely wrong . Patient reported that I am going to sign myself out and then jump off your fucking roof with a letter that says that is the care that you get a [facility] . Patient offered a new menu to order different food and patient declined I am not going to eat another meal or take another med .
[2022-05-28 17:18] VITALS: BP 156/80; PULSE 88
--- NOTE | 2022-05-28 18:34 | PC.NURSE ---
Patient upset reporting she did not get what she ordered for dinner. TW asked the pt what she ordered for dinner and pt stated I do not remember . Patient began to bang head on door jam. Was able to be redirected and asked for an ativan. Patient then began getting upset stating I am sure my breakfast will be wrong too . TW gave patient a new menu and agreed to have both of us sign it and make a photocopy to keep for records. Shortly after Patient dropped blank menu and pen over the nurses the station and refused to fill out the menu.
[2022-05-28] MEDS: traZODone HCL 50 MG TABLET PO (20:58)
--- NOTE | 2022-05-28 21:06 | PC.NURSE ---
pt BP was 142/100 with a heart rate of 96 bpm, TW requested to pt to retake BP due to it being elevated. pt denied and stated no dr romano agreed on the first number we go with . television cameraman doctor eduard notified
[2022-05-29] MEDS: Omeprazole 20 MG CAPSULE.DR PO (05:56)
[2022-05-29] MEDS: Ibuprofen 800 MG TABLET PO (05:56)
[2022-05-29] MEDS: Cyclobenzaprine HCl 10 MG TABLET PO ×3 (05:56→20:32)
[2022-05-29] MEDS: Gabapentin 300 MG CAPSULE 900 MG PO ×4 (06:56→20:33)
[2022-05-29] MEDS: LORazepam 1 MG TABLET PO ×2 (08:22→16:16)
[2022-05-29 08:56] VITALS: BP 162/79; PULSE 90; TEMP 36.6; O2SAT 100
[2022-05-29] MEDS: Clopidogrel Bisulfate 75 MG TABLET PO (09:12)
[2022-05-29] MEDS: DULoxetine HCl 60 MG CAPSULE.DR PO (09:12)
[2022-05-29] MEDS: carvediloL 12.5 MG TABLET PO ×2 (09:12→20:32)
[2022-05-29] MEDS: Multivitamin TABLET 1 TAB PO (09:12)
[2022-05-29] MEDS: Magnesium Oxide 400 MG TABLET PO (09:12)
[2022-05-29] MEDS: Atorvastatin Calcium 80 MG TABLET PO (09:12)
[2022-05-29] MEDS: Aspirin Enteric Coated 81 MG TABLET.DR PO (09:13)
[2022-05-29] MEDS: Mineral Oil/Petrolatum,White 106 GM Tube 1 APPL TOPICAL (09:41)
[2022-05-29 11:23] VITALS: BP 178/98; PULSE 90
[2022-05-29 14:18] VITALS: BP 172/82; PULSE 91
--- NOTE | 2022-05-29 15:36 | HO.PSYCHPN ---
Subjective Subjective Date of Service: 05/29/22 Reason For Visit: SI Interim History: calm, cooperative. denies banging her head over the weekend. (per RN note from 05/28: Patient upset reporting she did not get what she ordered for dinner. TW asked the pt what she ordered for dinner and pt stated I do not remember . Patient began to bang head on door jam. Was able to be redirected and asked for an ativan. ) discuss possibility of prazosin for nightmares. generally more agreeable with poem writer today than most of last week, but did spend much of mtg criticizing staff member she blames for her having banged her head originally (she states he said to her, you could try being nice, which greatly upset her). ethics committee mtg held on case. per staff, agitated, labile, depressed. eating well, sleeping better. threatening to jump from roof. c/o meals being wrong. sunday did not take thiem in the alexia. Mental Status Exam Mental Status Exam Narrative: cooperative. no PMA/PMR. speech incr rate, nml loudness, incr amount. decr latency. thoughts critical of staff as well as paranoid ppl are messing with her, such as by intentionally messing up her meals. affect constricted, normointense, min-labile. no SI/HI/AVH expressed. large bruised area over right neck into occipital area. Diagnostics Vital Signs (24Hr): Vital Signs - 24 hr 05/28/22 17:18 05/29/22 08:56 05/29/22 11:23 Temperature 97.8 F Pulse Rate 88 90 90 Blood Pressure 156/80 H 162/79 H 178/98 H Pulse Oximetry 100 Oxygen Delivery Method Room Air 05/29/22 14:18 Temperature Pulse Rate 91 Blood Pressure 172/82 H Pulse Oximetry Oxygen Delivery Method BMI result Body Mass Index 29.3 Labs Results: 05/15/22 10:32 05/16/22 08:44 Imaging Radiology Impressions: ITS Impressions Venous Duplex 05/22/22 21:36 IMPRESSION: No DVT demonstrated in the left lower extremity. Brain MRI 05/26/22 13:18 IMPRESSION: There are scattered nonspecific signal changes primarily involving the periventricular white matter. There is a single focus of T2 FLAIR signal hyperintensity within the left nick with associated ill-defined enhancement on postcontrast imaging. This finding could represent a small developmental venous anomaly or capillary telangiectasia. The possibility of active demyelination in the setting of suspected demyelinating disease cannot be definitively excluded but is felt to be less likely based on the distribution of chronic white matter disease. A follow-up brain MRI without and with contrast can be obtained at 6 months to assess the stability of this finding. Otherwise no abnormal enhancement visualized elsewhere within the [id number] of this examination. No evidence of acute territorial infarct or hemorrhage. Medications Medications Current Medications Acetaminophen (Acetaminophen 325 Mg Tablet) 650 mg PO Q6H PRN PRN Reason: Headache/Pain Mild Scale (1-3) Last Admin: 05/19/22 06:21 Dose: 650 mg Al Hydroxide/Mg Hydroxide (Magnesium Hydrox/Alum Hydrox 30 Ml Oral.Susp) 30 ml PO Q6H PRN PRN Reason: Heartburn/Nausea Aspirin (Aspirin Enteric Coated 81 Mg Tablet.) 81 mg PO DAILY [facility] Last Admin: 05/29/22 09:13 Dose: 81 mg Atorvastatin Calcium (Atorvastatin Calcium 80 Mg Tablet) 80 mg PO DAILY [facility] Last Admin: 05/29/22 09:12 Dose: 80 mg Carvedilol (Carvedilol 12.5 Mg Tablet) 12.5 mg PO BID [facility] Last Admin: 05/29/22 09:12 Dose: 12.5 mg Clopidogrel Bisulfate (Clopidogrel Bisulfate 75 Mg Tablet) 75 mg PO DAILY [facility] Last Admin: 05/29/22 09:12 Dose: 75 mg Cyclobenzaprine HCl (Cyclobenzaprine Hcl 10 Mg Tablet) 10 mg PO Q6H PRN PRN Reason: Muscle Spasm Last Admin: 05/29/22 14:48 Dose: 10 mg Duloxetine HCl (Duloxetine Hcl 60 Mg Capsule.) 60 mg PO DAILY [facility] Last Admin: 05/29/22 09:12 Dose: 60 mg Fludrocortisone Acetate (Fludrocortisone Acetate 0.1 Mg Tablet) 0.1 mg PO DAILY [facility] Last Admin: 05/29/22 09:03 Dose: Not Given Gabapentin (Gabapentin 300 Mg Capsule) 900 mg PO BID@0630,1500 [facility] Last Admin: 05/29/22 14:53 Dose: 900 mg Gabapentin (Gabapentin 300 Mg Capsule) 900 mg PO BID@1100,2100 [facility] Last Admin: 05/29/22 11:08 Dose: 900 mg Hydrocortisone (Hydrocortisone 1 % Ointment 28.35 Gm Tube) 1 appl TOPICAL BID PRN; Protocol PRN Reason: left hand Last Admin: 05/27/22 09:27 Dose: 1 appl Ibuprofen (Ibuprofen 800 Mg Tablet) 800 mg PO Q8H PRN PRN Reason: Pain, Moderate (Pain Scale 4-6 Last Admin: 05/29/22 05:56 Dose: 800 mg Lactic Acid (Ammonium Lactate 12 % Cream 140 Gm Tube) 1 appl TOPICAL BID PRN; Protocol PRN Reason: Dry Skin Last Admin: 05/27/22 09:27 Dose: 1 appl Lorazepam (Lorazepam 1 Mg Tablet) 1 mg PO Q4H PRN PRN Reason: severe anxiety Last Admin: 05/29/22 08:22 Dose: 1 mg Magnesium Hydroxide (Milk Of Magnesia 30 Ml Oral.Susp) 30 ml PO DAILY PRN PRN Reason: Constipation Magnesium Oxide (Magnesium Oxide 400 Mg Tablet) 400 mg PO DAILY [facility] Last Admin: 05/29/22 09:12 Dose: 400 mg Midodrine (Midodrine Hcl 5 Mg Tablet) 5 mg PO TID@0900,1300,1800 [facility] Last Admin: 05/29/22 14:17 Dose: Not Given Multi-Ingred Cream/Lotion/Oil/Oint (Mineral Oil/Petrolatum,White 106 Gm Tube) 1 appl TOPICAL BID CHE; Protocol Last Admin: 05/29/22 09:41 Dose: 1 appl Multivitamins/Vitamin C (Multivitamin Tablet) 1 tab PO DAILY [facility] Last Admin: 05/29/22 09:12 Dose: 1 tab Nicotine (Nicotine 21 Mg Patch.Td24) 21 mg TRANSDERMA DAILY PRN PRN Reason: nicotine cravings Omeprazole (Omeprazole 20 Mg Capsule.Dr) 20 mg PO DAILY@0630 [facility] Last Admin: 05/29/22 05:56 Dose: 20 mg Trazodone HCl (Trazodone Hcl 50 Mg Tablet) 50 mg PO BEDTIME PRN PRN Reason: Insomnia Last Admin: 05/28/22 20:58 Dose: 50 mg Allergies Allergies Allergy/AdvReac Type Severity Reaction Status Date / Time aspirin [ASPIRIN] Allergy Unknown SENSITIVITY Verified 04/30/22 13:04 lisinopril Allergy Unknown falls, Verified 04/30/22 13:04 muscle weakness Assessment & Plan Assessment & Plan (1) Borderline personality disorder: Status: Acute Code(s): F60.3 - Borderline personality disorder Plan 05/16: continue outpt meds for now. cardiology consult for mgmt of BP and opinion on QTc mgmt. OT eval for ambulation and need for fdc. build rapport, consider mood/anxiety medication as indicated. Patient educated on: diagnosis and substance abuse 05/17: per OT: She should continue using the walker. Her biggest issue is her orthostatic hypotension and frequently syncopizes (not in past 2 weeks though). As for her ability to live independently, yes, from a purely musculoskeletal standpoint. per Cardiology: 1) reduce midodrine to 5 mg TID, give 30 min prior to meals. 2) reduce carvedilol to 12.5 BID. 3) continue fludrocortisone as is. 4) BP Q3H WA. 5) hold midodrine for SBP > 150 or DBP > 95. 6) hold fludrocortisone if SBP > 150. 7) hold carvedilol if SBP < 110. 8) replete Mg to above 2. 9) replete K to above 4. 10) QTc up to 500 ms is acceptable for now. psych: stable presentation. 05/18: BP improved. gabapentin increased to 900 QID as of today.? otherwise continue current mgmt. 05/19: continue tx. 05/20: No changes to current treatment plan.? Will adjust Advil to 800 mg as needed up to 3 times per day consistent with patient's home regimen 05/21: No changes to current treatment plan. 05/22: wrist brace for carpal tunnel complaints. ativan 1 mg daily PRN for severe anxiety, only while hospitalized. very wordy today, seemingly evasive about discussing substantive issues regarding her Tx here and dispo planning. 05/23: extremely denigrating and accusatory, asserting staff enjoy her suffering and are intentionally doing things to make her suffer. demanding medical attention for myriad complaints, historical and chronic as well as more recent. alleging withholding of care. demanding to have a wheelchair, states she cannot ambulate due to foot pain. PT eval for wheelchair, T/C med consult for prominent and acute complaints. 05/24: declines mtg with MD, saying she is not in the mood. interdisciplinary mtg held re pt's care, plan to pursue more collateral, check [facility], refer for DMH services made. 05/25: quite angry/pressured with litany of complaints today. [facility] . placed on 1:1 for SIB. 05/26: periods of collaboration and calm today, interspersed with the recent aggressiveness and criticality. OBS decreased to Q5 min checks at pt request. she reports she will begin to take her medications again in response. denying any SIBI, states she will refrain from engaging in such. 05/28/22 Continue current regime, as she reports she believes it is beginning to work. Discussion of feeling hurt by some team interactions with her-continue to educate re process of therapy and rationale for questions she is asked. 05/29: denies banging her head over weekend, yet RN note from 05/28 states she did so. more pleasant today, focussed on scapegoating particular staff member rather than the class as a whole. paranoid unnamed staff are messing with her, however, such as my messing up her meal orders, as apparently happened twice over the weekend. divulged trauma-related nightmares and insomnia, considering prazosin (cardiology consulted). I spent __70____ minutes with the patient and/or on the patient floor today, greater than?50% of which was spent counseling/coordinating care. Reason for contiued inpatient stay Substantial Risk for: harm to self and rapid decompensation Time Spent With Patient Time: Total time managing care of this patient today ____ minutes.
--- NOTE | 2022-05-29 17:57 | PC.NURSE ---
Patient was abrupt initially at start of the shift. Allowed VS BP 162/79, P 90, T97.8, 100% on RA. Midodrine and Florinef held per order, notified. Pt took all scheduled medications for this shift and prn Ativan for increased anxiety. Patient was tearful during 1:1 verbalizing missing her son and stating that life would be worth living if she could repair her relationship with him. Pt did comment that if she jumps off the roof it will be the staff at the hospitals fault. Patient was less argumentive this shift and was less labile. Pt spent increased time in her room stating that she felt more tired today.
[2022-05-29 20:00] VITALS: BP 130/84; PULSE 93; RESP 16; TEMP 36.9; O2SAT 94
[2022-05-30] MEDS: traZODone HCL 50 MG TABLET PO ×2 (00:49→23:06)
[2022-05-30] MEDS: Ibuprofen 800 MG TABLET PO ×3 (00:49→23:06)
[2022-05-30] MEDS: Omeprazole 20 MG CAPSULE.DR PO (06:53)
[2022-05-30] MEDS: Gabapentin 300 MG CAPSULE 900 MG PO ×4 (06:53→20:28)
[2022-05-30 08:40] VITALS: BP 135/74; PULSE 92; RESP 16; TEMP 36.5; O2SAT 100
[2022-05-30] MEDS: carvediloL 12.5 MG TABLET PO ×2 (08:46→20:28)
[2022-05-30] MEDS: Cyclobenzaprine HCl 10 MG TABLET PO ×3 (08:46→20:28)
[2022-05-30] MEDS: Multivitamin TABLET 1 TAB PO (08:46)
[2022-05-30] MEDS: Aspirin Enteric Coated 81 MG TABLET.DR PO (08:46)
[2022-05-30] MEDS: Atorvastatin Calcium 80 MG TABLET PO (08:46)
[2022-05-30] MEDS: DULoxetine HCl 60 MG CAPSULE.DR PO (08:46)
[2022-05-30] MEDS: Fludrocortisone Acetate 0.1 MG TABLET PO (08:47)
[2022-05-30] MEDS: LORazepam 1 MG TABLET PO ×3 (08:47→17:09)
[2022-05-30] MEDS: Magnesium Oxide 400 MG TABLET PO (08:47)
[2022-05-30] MEDS: Clopidogrel Bisulfate 75 MG TABLET PO (08:47)
[2022-05-30 12:51] VITALS: BP 125/83; PULSE 86; RESP 18; O2SAT 96
--- NOTE | 2022-05-30 17:10 | P.PNPSI_ITS ---
Subjective Subjective Date of Service: 05/30/22 Reason For Visit: SI Interim History: calm, cooperative. discuss medications for depression, continued lack of efficacy of medications. R/B of wellbutrin discussed including agitation, anxiety, insomnia, Sz; pt agrees to trial, will start 150 mg tomorrow morning. states she is surprised at herself to be accepting medication changes for mood disorder as she has not felt it has been helpful and has had a dim view of them recently. per staff, resting yesterday in her room. tense initially, tearful in 1:1. stated life would be worth living if she could repair her relationship with her son. felt group was helpful. denied SI in alexia. Mental Status Exam Mental Status Exam Narrative: cooperative. no PMA/PMR. speech incr rate, nml loudness, nml amount. decr latency. thoughts linear and logical, not aggressive or critical today. affect more flexible, normo-intense, non-labile. no SI/HI/AVH expressed. large bruised area over right neck into occipital area. Diagnostics Vital Signs (24Hr): Vital Signs - 24 hr 05/29/22 20:00 05/30/22 08:40 05/30/22 12:51 Temperature 98.4 F 97.7 F Pulse Rate 93 92 86 Respiratory Rate 16 16 18 Blood Pressure 130/84 135/74 125/83 Pulse Oximetry 94 100 96 Oxygen Delivery Method Room Air Room Air Room Air BMI result Body Mass Index 29.3 Labs Results: 05/15/22 10:32 05/16/22 08:44 Imaging Radiology Impressions: ITS Impressions Venous Duplex 05/22/22 21:36 IMPRESSION: No DVT demonstrated in the left lower extremity. Brain MRI 05/26/22 13:18 IMPRESSION: There are scattered nonspecific signal changes primarily involving the periventricular white matter. There is a single focus of T2 FLAIR signal hyperintensity within the left nick with associated ill-defined enhancement on postcontrast imaging. This finding could represent a small developmental venous anomaly or capillary telangiectasia. The possibility of active demyelination in the setting of suspected demyelinating disease cannot be definitively excluded but is felt to be less likely based on the distribution of chronic white matter disease. A follow-up brain MRI without and with contrast can be obtained at 6 months to assess the stability of this finding. Otherwise no abnormal enhancement visualized elsewhere within the [id number] of this examination. No evidence of acute territorial infarct or hemorrhage. Medications Medications Current Medications Acetaminophen (Acetaminophen 325 Mg Tablet) 650 mg PO Q6H PRN PRN Reason: Headache/Pain Mild Scale (1-3) Last Admin: 05/19/22 06:21 Dose: 650 mg Al Hydroxide/Mg Hydroxide (Magnesium Hydrox/Alum Hydrox 30 Ml Oral.Susp) 30 ml PO Q6H PRN PRN Reason: Heartburn/Nausea Aspirin (Aspirin Enteric Coated 81 Mg Tablet.) 81 mg PO DAILY [facility] Last Admin: 05/30/22 08:46 Dose: 81 mg Atorvastatin Calcium (Atorvastatin Calcium 80 Mg Tablet) 80 mg PO DAILY [facility] Last Admin: 05/30/22 08:46 Dose: 80 mg Carvedilol (Carvedilol 12.5 Mg Tablet) 12.5 mg PO BID [facility] Last Admin: 05/30/22 08:46 Dose: 12.5 mg Clopidogrel Bisulfate (Clopidogrel Bisulfate 75 Mg Tablet) 75 mg PO DAILY [facility] Last Admin: 05/30/22 08:47 Dose: 75 mg Cyclobenzaprine HCl (Cyclobenzaprine Hcl 10 Mg Tablet) 10 mg PO Q6H PRN PRN Reason: Muscle Spasm Last Admin: 05/30/22 14:47 Dose: 10 mg Duloxetine HCl (Duloxetine Hcl 60 Mg Capsule.) 60 mg PO DAILY [facility] Last Admin: 05/30/22 08:46 Dose: 60 mg Fludrocortisone Acetate (Fludrocortisone Acetate 0.1 Mg Tablet) 0.1 mg PO DAILY [facility] Last Admin: 05/30/22 08:47 Dose: 0.1 mg Gabapentin (Gabapentin 300 Mg Capsule) 900 mg PO BID@0630,1500 [facility] Last Admin: 05/30/22 14:47 Dose: 900 mg Gabapentin (Gabapentin 300 Mg Capsule) 900 mg PO BID@1100,2100 [facility] Last Admin: 05/30/22 10:52 Dose: 900 mg Hydrocortisone (Hydrocortisone 1 % Ointment 28.35 Gm Tube) 1 appl TOPICAL BID PRN; Protocol PRN Reason: left hand Last Admin: 05/27/22 09:27 Dose: 1 appl Ibuprofen (Ibuprofen 800 Mg Tablet) 800 mg PO Q8H PRN PRN Reason: Pain, Moderate (Pain Scale 4-6 Last Admin: 05/30/22 12:45 Dose: 800 mg Lactic Acid (Ammonium Lactate 12 % Cream 140 Gm Tube) 1 appl TOPICAL BID PRN; Protocol PRN Reason: Dry Skin Last Admin: 05/27/22 09:27 Dose: 1 appl Lorazepam (Lorazepam 1 Mg Tablet) 1 mg PO Q4H PRN PRN Reason: severe anxiety Last Admin: 05/30/22 12:45 Dose: 1 mg Magnesium Hydroxide (Milk Of Magnesia 30 Ml Oral.Susp) 30 ml PO DAILY PRN PRN Reason: Constipation Magnesium Oxide (Magnesium Oxide 400 Mg Tablet) 400 mg PO DAILY [facility] Last Admin: 05/30/22 08:47 Dose: 400 mg Midodrine (Midodrine Hcl 5 Mg Tablet) 5 mg PO TID@0900,1300,1800 [facility] Last Admin: 05/30/22 12:51 Dose: Not Given Multi-Ingred Cream/Lotion/Oil/Oint (Mineral Oil/Petrolatum,White 106 Gm Tube) 1 appl TOPICAL BID CHE; Protocol Last Admin: 05/30/22 08:48 Dose: Not Given Multivitamins/Vitamin C (Multivitamin Tablet) 1 tab PO DAILY [facility] Last Admin: 05/30/22 08:46 Dose: 1 tab Nicotine (Nicotine 21 Mg Patch.Td24) 21 mg TRANSDERMA DAILY PRN PRN Reason: nicotine cravings Omeprazole (Omeprazole 20 Mg Capsule.Dr) 20 mg PO DAILY@0630 [facility] Last Admin: 05/30/22 06:53 Dose: 20 mg Trazodone HCl (Trazodone Hcl 50 Mg Tablet) 50 mg PO BEDTIME PRN PRN Reason: Insomnia Last Admin: 05/30/22 00:49 Dose: 50 mg Trolamine Salicylate (Trolamine Salicylate 10 % Cream 85 Gm Tube) 1 appl TOPICAL QID PRN; Protocol PRN Reason: low back pain Allergies Allergies Allergy/AdvReac Type Severity Reaction Status Date / Time aspirin [ASPIRIN] Allergy Unknown SENSITIVITY Verified 04/30/22 13:04 lisinopril Allergy Unknown falls, Verified 04/30/22 13:04 muscle weakness Assessment & Plan Assessment & Plan (1) Borderline personality disorder: Status: Acute Code(s): F60.3 - Borderline personality disorder Plan 05/16: continue outpt meds for now. cardiology consult for mgmt of BP and opinion on QTc mgmt. OT eval for ambulation and need for assisted. build rapport, consider mood/anxiety medication as indicated. Patient educated on: diagnosis and substance abuse 05/17: per OT: She should continue using the walker. Her biggest issue is her orthostatic hypotension and frequently syncopizes (not in past 2 weeks though). As for her ability to live independently, yes, from a purely musculoskeletal st andpoint. per Cardiology: 1) reduce midodrine to 5 mg TID, give 30 min prior to meals. 2) reduce carvedilol to 12.5 BID. 3) continue fludrocortisone as is. 4) BP Q3H WA. 5) hold midodrine for SBP > 150 or DBP > 95. 6) hold fludrocortisone if SBP > 150. 7) hold carvedilol if SBP < 110. 8) replete Mg to above 2. 9) replete K to above 4. 10) QTc up to 500 ms is acceptable for now. psych: stable presentation. 05/18: BP improved. gabapentin increased to 900 QID as of today.? otherwise continue current mgmt. 05/19: continue tx. 05/20: No changes to current treatment plan.? Will adjust Advil to 800 mg as needed up to 3 times per day consistent with patient's home regimen 05/21: No changes to current treatment plan. 05/22: wrist brace for carpal tunnel complaints. ativan 1 mg daily PRN for severe anxiety, only while hospitalized. very wordy today, seemingly evasive about discussing substantive issues regarding her Tx here and dispo planning. 05/23: extremely denigrating and accusatory, asserting staff enjoy her suffering and are intentionally doing things to make her suffer. demanding medical attention for myriad complaints, historical and chronic as well as more recent. alleging withholding of care. demanding to have a wheelchair, states she cannot ambulate due to foot pain. PT eval for wheelchair, T/C med consult for prominent and acute complaints. 05/24: declines mtg with MD, saying she is not in the mood. interdisciplinary mtg held re pt's care, plan to pursue more collateral, check [facility], refer for DMH services made. 05/25: quite angry/pressured with litany of complaints today. [facility] . placed on 1:1 for SIB. 05/26: periods of collaboration and calm today, interspersed with the recent aggressiveness and criticality. OBS decreased to Q5 min checks at pt request. she reports she will begin to take her medications again in response. denying any SIBI, states she will refrain from engaging in such. 05/28/22 Continue current regime, as she reports she believes it is beginning to work. Discussion of feeling hurt by some team interactions with her-continue to educate re process of therapy and rationale for questions she is asked. 05/29: denies banging her head over weekend, yet RN note from 05/28 states she did so. more pleasant today, focussed on scapegoating particular staff member rather than the class as a whole. paranoid unnamed staff are messing with her, however, such as my messing up her meal orders, as apparently happened twice over the weekend. divulged trauma-related nightmares and insomnia, considering prazosin (cardiology consulted). 05/30: calm, cooperative, not aggressive or critical today. agrees to trial of wellbutrin as adjunctive anti-depressant. I spent ___35___ minutes with the patient and/or on the patient floor today, greater than?50% of which was spent counseling/coordinating care. Reason for contiued inpatient stay Substantial Risk for: harm to self, inability to function and med/psych decompensation Time Spent With Patient Time: Total time managing care of this patient today ____ minutes.
[2022-05-30 17:40] VITALS: BP 158/86; PULSE 86; RESP 18; O2SAT 96
[2022-05-30 18:00] VITALS: BP 118/72; PULSE 72; RESP 16; TEMP 36.5; O2SAT 100
[2022-05-31] MEDS: Omeprazole 20 MG CAPSULE.DR PO (05:56)
[2022-05-31] MEDS: Gabapentin 300 MG CAPSULE 900 MG PO ×4 (05:56→20:15)
[2022-05-31 06:00] VITALS: BP 154/88; PULSE 88; RESP 18; TEMP 36.7; O2SAT 98
[2022-05-31] MEDS: LORazepam 1 MG TABLET PO ×4 (07:59→20:15)
[2022-05-31] MEDS: Cyclobenzaprine HCl 10 MG TABLET PO ×2 (07:59→20:15)
[2022-05-31] MEDS: Ibuprofen 800 MG TABLET PO ×2 (08:00→16:01)
[2022-05-31] MEDS: Magnesium Oxide 400 MG TABLET PO (08:41)
[2022-05-31] MEDS: Clopidogrel Bisulfate 75 MG TABLET PO (08:41)
[2022-05-31] MEDS: Fludrocortisone Acetate 0.1 MG TABLET PO (08:41)
[2022-05-31] MEDS: Atorvastatin Calcium 80 MG TABLET PO (08:41)
[2022-05-31] MEDS: Ammonium Lactate 12 % Cream 140 GM TUBE 1 APPL TOPICAL (08:41)
[2022-05-31] MEDS: Multivitamin TABLET 1 TAB PO (08:41)
[2022-05-31] MEDS: carvediloL 12.5 MG TABLET PO ×2 (08:41→20:15)
[2022-05-31] MEDS: buPROPion HCl XL 150 MG TAB.ER.24H PO (08:41)
[2022-05-31] MEDS: Aspirin Enteric Coated 81 MG TABLET.DR PO (08:41)
[2022-05-31] MEDS: DULoxetine HCl 60 MG CAPSULE.DR PO (08:41)
[2022-05-31] MEDS: Midodrine HCl 5 MG TABLET PO (12:45)
[2022-05-31 12:46] VITALS: BP 138/85; PULSE 84
--- NOTE | 2022-05-31 14:15 | HO.PSYCHPN ---
Subjective Subjective Date of Service: 05/31/22 Reason For Visit: SI Interim History: calm, cooperative. seen with SW in her room as she sat on her bed doing jigsaw puzzle. brighter, more future oriented. willing to complete [facility] application. spent some time explaining [facility] supports. took wellbutrin today, no side effects. reviewed common side effects to be aware of. per staff, showered, dressed. med-compliant. anx 8, dep 10. no SI/HI. chatty. eating well. focussed on relationship with her son. up and down throughout the night. Mental Status Exam Mental Status Exam Narrative: cooperative. no PMA/PMR. speech nml rate, loudness, amount, latency. thoughts linear and logical, not aggressive or critical today. affect full range, normo-intense, non-labile. no SI/HI/AVH expressed. large bruised area over right neck into occipital area. Diagnostics Vital Signs (24Hr): Vital Signs - 24 hr 05/30/22 17:40 05/30/22 18:00 05/31/22 06:00 Temperature 97.7 F 98.1 F Pulse Rate 86 72 88 Respiratory Rate 18 16 18 Blood Pressure 158/86 H 118/72 154/88 H Pulse Oximetry 96 100 98 Oxygen Delivery Method Room Air Room Air Room Air 05/31/22 12:46 Temperature Pulse Rate 84 Respiratory Rate Blood Pressure 138/85 Pulse Oximetry Oxygen Delivery Method BMI result Body Mass Index 29.3 Labs Results: 05/15/22 10:32 05/16/22 08:44 Imaging Radiology Impressions: ITS Impressions Venous Duplex 05/22/22 21:36 IMPRESSION: No DVT demonstrated in the left lower extremity. Brain MRI 05/26/22 13:18 IMPRESSION: There are scattered nonspecific signal changes primarily involving the periventricular white matter. There is a single focus of T2 FLAIR signal hyperintensity within the left nick with associated ill-defined enhancement on postcontrast imaging. This finding could represent a small developmental venous anomaly or capillary telangiectasia. The possibility of active demyelination in the setting of suspected demyelinating disease cannot be definitively excluded but is felt to be less likely based on the distribution of chronic white matter disease. A follow-up brain MRI without and with contrast can be obtained at 6 months to assess the stability of this finding. Otherwise no abnormal enhancement visualized elsewhere within the [id number] of this examination. No evidence of acute territorial infarct or hemorrhage. Medications Medications Current Medications Acetaminophen (Acetaminophen 325 Mg Tablet) 650 mg PO Q6H PRN PRN Reason: Headache/Pain Mild Scale (1-3) Last Admin: 05/19/22 06:21 Dose: 650 mg Al Hydroxide/Mg Hydroxide (Magnesium Hydrox/Alum Hydrox 30 Ml Oral.Susp) 30 ml PO Q6H PRN PRN Reason: Heartburn/Nausea Aspirin (Aspirin Enteric Coated 81 Mg Tablet.) 81 mg PO DAILY [facility] Last Admin: 05/31/22 08:41 Dose: 81 mg Atorvastatin Calcium (Atorvastatin Calcium 80 Mg Tablet) 80 mg PO DAILY [facility] Last Admin: 05/31/22 08:41 Dose: 80 mg Bupropion HCl (Bupropion Hcl Xl 150 Mg Tab.Er.24h) 150 mg PO DAILY [facility] Last Admin: 05/31/22 08:41 Dose: 150 mg Carvedilol (Carvedilol 12.5 Mg Tablet) 12.5 mg PO BID [facility] Last Admin: 05/31/22 08:41 Dose: 12.5 mg Clopidogrel Bisulfate (Clopidogrel Bisulfate 75 Mg Tablet) 75 mg PO DAILY [facility] Last Admin: 05/31/22 08:41 Dose: 75 mg Cyclobenzaprine HCl (Cyclobenzaprine Hcl 10 Mg Tablet) 10 mg PO Q6H PRN PRN Reason: Muscle Spasm Last Admin: 05/31/22 07:59 Dose: 10 mg Duloxetine HCl (Duloxetine Hcl 60 Mg Capsule.) 60 mg PO DAILY [facility] Last Admin: 05/31/22 08:41 Dose: 60 mg Fludrocortisone Acetate (Fludrocortisone Acetate 0.1 Mg Tablet) 0.1 mg PO DAILY [facility] Last Admin: 05/31/22 08:41 Dose: 0.1 mg Gabapentin (Gabapentin 300 Mg Capsule) 900 mg PO BID@0630,1500 [facility] Last Admin: 05/31/22 05:56 Dose: 900 mg Gabapentin (Gabapentin 300 Mg Capsule) 900 mg PO BID@1100,2100 [facility] Last Admin: 05/31/22 10:46 Dose: 900 mg Hydrocortisone (Hydrocortisone 1 % Ointment 28.35 Gm Tube) 1 appl TOPICAL BID PRN; Protocol PRN Reason: left hand Last Admin: 05/27/22 09:27 Dose: 1 appl Ibuprofen (Ibuprofen 800 Mg Tablet) 800 mg PO Q8H PRN PRN Reason: Pain, Moderate (Pain Scale 4-6 Last Admin: 05/31/22 08:00 Dose: 800 mg Lactic Acid (Ammonium Lactate 12 % Cream 140 Gm Tube) 1 appl TOPICAL BID PRN; Protocol PRN Reason: Dry Skin Last Admin: 05/31/22 08:41 Dose: 1 appl Lorazepam (Lorazepam 1 Mg Tablet) 1 mg PO Q4H PRN PRN Reason: severe anxiety Last Admin: 05/31/22 12:44 Dose: 1 mg Magnesium Hydroxide (Milk Of Magnesia 30 Ml Oral.Susp) 30 ml PO DAILY PRN PRN Reason: Constipation Magnesium Oxide (Magnesium Oxide 400 Mg Tablet) 400 mg PO DAILY [facility] Last Admin: 05/31/22 08:41 Dose: 400 mg Midodrine (Midodrine Hcl 5 Mg Tablet) 5 mg PO TID@0900,1300,1800 [facility] Last Admin: 05/31/22 12:45 Dose: 5 mg Multi-Ingred Cream/Lotion/Oil/Oint (Mineral Oil/Petrolatum,White 106 Gm Tube) 1 appl TOPICAL BID [facility]; Protocol Last Admin: 05/31/22 08:42 Dose: Not Given Multivitamins/Vitamin C (Multivitamin Tablet) 1 tab PO DAILY [facility] Last Admin: 05/31/22 08:41 Dose: 1 tab Nicotine (Nicotine 21 Mg Patch.Td24) 21 mg TRANSDERMA DAILY PRN PRN Reason: nicotine cravings Omeprazole (Omeprazole 20 Mg Capsule.Dr) 20 mg PO DAILY@0630 [facility] Last Admin: 05/31/22 05:56 Dose: 20 mg Trazodone HCl (Trazodone Hcl 50 Mg Tablet) 50 mg PO BEDTIME PRN PRN Reason: Insomnia Last Admin: 05/30/22 23:06 Dose: 50 mg Trolamine Salicylate (Trolamine Salicylate 10 % Cream 85 Gm Tube) 1 appl TOPICAL QID PRN; Protocol PRN Reason: low back pain Allergies Allergies Allergy/AdvReac Type Severity Reaction Status Date / Time aspirin [ASPIRIN] Allergy Unknown SENSITIVITY Verified 04/30/22 13:04 lisinopril Allergy Unknown falls, Verified 04/30/22 13:04 muscle weakness Assessment & Plan Assessment & Plan (1) Borderline personality disorder: Status: Acute Code(s): F60.3 - Borderline personality disorder Plan 05/16: continue outpt meds for now. cardiology consult for mgmt of BP and opinion on QTc mgmt. OT eval for ambulation and need for senior care. build rapport, consider mood/anxiety medication as indicated. Patient educated on: diagnosis and substance abuse 05/17: per OT: She should continue using the walker. Her biggest issue is her orthostatic hypotension and frequently syncopizes (not in past 2 weeks though). As for her ability to live independently, yes, from a purely musculoskeletal standpoint. per Cardiology: 1) reduce midodrine to 5 mg TID, give 30 min prior to meals. 2) reduce carvedilol to 12.5 BID. 3) continue fludrocortisone as is. 4) BP Q3H WA. 5) hold midodrine for SBP > 150 or DBP > 95. 6) hold fludrocortisone if SBP > 150. 7) hold carvedilol if SBP < 110. 8) replete Mg to above 2. 9) replete K to above 4. 10) QTc up to 500 ms is acceptable for now. psych: stable presentation. 05/18: BP improved. gabapentin increased to 900 QID as of today.? otherwise continue current mgmt. 05/19: continue tx. 05/20: No changes to current treatment plan.? Will adjust Advil to 800 mg as needed up to 3 times per day consistent with patient's home regimen 05/21: No changes to current treatment plan. 05/22: wrist brace for carpal tunnel complaints. ativan 1 mg daily PRN for severe anxiety, only while hospitalized. very wordy today, seemingly evasive about discussing substantive issues regarding her Tx here and dispo planning. 05/23: extremely denigrating and accusatory, asserting staff enjoy her suffering and are intentionally doing things to make her suffer. demanding medical attention for myriad complaints, historical and chronic as well as more recent. alleging withholding of care. demanding to have a wheelchair, states she cannot ambulate due to foot pain. PT eval for wheelchair, T/C med consult for prominent and acute complaints. 05/24: declines mtg with MD, saying she is not in the mood. interdisciplinary mtg held re pt's care, plan to pursue more collateral, check [facility], refer for DMH services made. 05/25: quite angry/pressured with litany of complaints today. [facility] . placed on 1:1 for SIB. 05/26: periods of collaboration and calm today, interspersed with the recent aggressiveness and criticality. OBS decreased to Q5 min checks at pt request. she reports she will begin to take her medications again in response. denying any SIBI, states she will refrain from engaging in such. 05/28/22 Continue current regime, as she reports she believes it is beginning to work. Discussion of feeling hurt by some team interactions with her-continue to educate re process of therapy and rationale for questions she is asked. 05/29: denies banging her head over weekend, yet RN note from 05/28 states she did so. more pleasant today, focussed on scapegoating particular staff member rather than the class as a whole. paranoid unnamed staff are messing with her, however, such as my messing up her meal orders, as apparently happened twice over the weekend. divulged trauma-related nightmares and insomnia, considering prazosin (cardiology consulted). 05/30: calm, cooperative, not aggressive or critical today. agrees to trial of wellbutrin as adjunctive anti-depressant. 05/31: calm, cooperative. increasingly future-oriented and collaborative. will submit [facility] application. no side effects from medications. continue current mgmt, increase wellbutrin after 2 more days. I spent ___35___ minutes with the patient and/or on the patient floor today, greater than?50% of which was spent counseling/coordinating care. Reason for contiued inpatient stay Substantial Risk for: harm to self, inability to function and rapid decompensation Time Spent With Patient Time: Total time managing care of this patient today ____ minutes.
[2022-05-31 18:00] VITALS: BP 174/90; PULSE 88; RESP 18; TEMP 36.8; O2SAT 98
[2022-05-31] MEDS: traZODone HCL 50 MG TABLET PO (23:12)
[2022-06-01] MEDS: Ibuprofen 800 MG TABLET PO ×3 (03:47→20:51)
[2022-06-01] MEDS: Gabapentin 300 MG CAPSULE 900 MG PO ×4 (06:24→20:52)
[2022-06-01] MEDS: Omeprazole 20 MG CAPSULE.DR PO (06:24)
[2022-06-01 07:00] VITALS: BMI 30.2
[2022-06-01 08:00] VITALS: BP 134/76; PULSE 90; RESP 18; TEMP 36.6; O2SAT 99
[2022-06-01] MEDS: DULoxetine HCl 60 MG CAPSULE.DR PO (08:18)
[2022-06-01] MEDS: Clopidogrel Bisulfate 75 MG TABLET PO (08:18)
[2022-06-01] MEDS: Multivitamin TABLET 1 TAB PO (08:18)
[2022-06-01] MEDS: Atorvastatin Calcium 80 MG TABLET PO (08:18)
[2022-06-01] MEDS: Aspirin Enteric Coated 81 MG TABLET.DR PO (08:18)
[2022-06-01] MEDS: Cyclobenzaprine HCl 10 MG TABLET PO ×3 (08:19→20:51)
[2022-06-01] MEDS: Fludrocortisone Acetate 0.1 MG TABLET PO (08:19)
[2022-06-01] MEDS: buPROPion HCl XL 150 MG TAB.ER.24H PO (08:19)
[2022-06-01] MEDS: Magnesium Oxide 400 MG TABLET PO (08:19)
[2022-06-01] MEDS: LORazepam 1 MG TABLET PO ×4 (08:19→20:52)
[2022-06-01] MEDS: carvediloL 12.5 MG TABLET PO ×2 (08:19→17:35)
[2022-06-01 12:41] VITALS: BP 139/83; PULSE 90; O2SAT 100
--- NOTE | 2022-06-01 15:00 | HO.PSYCHPN ---
Subjective Subjective Date of Service: 06/01/22 Reason For Visit: SI Interim History: calm, cooperative, even cheery. states she is doing well. asks about prazosin for HS. expresses interest in doing [facility] application. no complaints or requests. per staff, some tearfulness. depressed about being in the hospital. anx 9, dep 10. [facility] application under way. Mental Status Exam Mental Status Exam Narrative: cooperative. no PMA/PMR. speech nml rate, loudness, amount, latency. thoughts linear and logical, not aggressive or critical today. affect full range, normo-intense, non-labile. no SI/HI/AVH expressed. large bruised area over right neck into occipital area. Diagnostics Vital Signs (24Hr): Vital Signs - 24 hr 05/31/22 18:00 06/01/22 08:00 06/01/22 12:41 Temperature 98.2 F 97.9 F Pulse Rate 88 90 90 Respiratory Rate 18 18 Blood Pressure 174/90 H 134/76 139/83 Pulse Oximetry 98 99 100 Oxygen Delivery Method Room Air Room Air Room Air BMI result Body Mass Index 30.2 Labs Results: 05/15/22 10:32 05/16/22 08:44 Imaging Radiology Impressions: ITS Impressions Venous Duplex 05/22/22 21:36 IMPRESSION: No DVT demonstrated in the left lower extremity. Brain MRI 05/26/22 13:18 IMPRESSION: There are scattered nonspecific signal changes primarily involving the periventricular white matter. There is a single focus of T2 FLAIR signal hyperintensity within the left nick with associated ill-defined enhancement on postcontrast imaging. This finding could represent a small developmental venous anomaly or capillary telangiectasia. The possibility of active demyelination in the setting of suspected demyelinating disease cannot be definitively excluded but is felt to be less likely based on the distribution of chronic white matter disease. A follow-up brain MRI without and with contrast can be obtained at 6 months to assess the stability of this finding. Otherwise no abnormal enhancement visualized elsewhere within the [id number] of this examination. No evidence of acute territorial infarct or hemorrhage. Medications Medications Current Medications Acetaminophen (Acetaminophen 325 Mg Tablet) 650 mg PO Q6H PRN PRN Reason: Headache/Pain Mild Scale (1-3) Last Admin: 05/19/22 06:21 Dose: 650 mg Al Hydroxide/Mg Hydroxide (Magnesium Hydrox/Alum Hydrox 30 Ml Oral.Susp) 30 ml PO Q6H PRN PRN Reason: Heartburn/Nausea Aspirin (Aspirin Enteric Coated 81 Mg Tablet.Dr) 81 mg PO DAILY [facility] Last Admin: 06/01/22 08:18 Dose: 81 mg Atorvastatin Calcium (Atorvastatin Calcium 80 Mg Tablet) 80 mg PO DAILY [facility] Last Admin: 06/01/22 08:18 Dose: 80 mg Bupropion HCl (Bupropion Hcl Xl 150 Mg Tab.Er.24h) 150 mg PO DAILY [facility] Last Admin: 06/01/22 08:19 Dose: 150 mg Carvedilol (Carvedilol 12.5 Mg Tablet) 12.5 mg PO BID [facility] Last Admin: 06/01/22 08:19 Dose: 12.5 mg Clopidogrel Bisulfate (Clopidogrel Bisulfate 75 Mg Tablet) 75 mg PO DAILY [facility] Last Admin: 06/01/22 08:18 Dose: 75 mg Cyclobenzaprine HCl (Cyclobenzaprine Hcl 10 Mg Tablet) 10 mg PO Q6H PRN PRN Reason: Muscle Spasm Last Admin: 06/01/22 14:53 Dose: 10 mg Duloxetine HCl (Duloxetine Hcl 60 Mg Capsule.) 60 mg PO DAILY [facility] Last Admin: 06/01/22 08:18 Dose: 60 mg Fludrocortisone Acetate (Fludrocortisone Acetate 0.1 Mg Tablet) 0.1 mg PO DAILY [facility] Last Admin: 06/01/22 08:19 Dose: 0.1 mg Gabapentin (Gabapentin 300 Mg Capsule) 900 mg PO BID@0630,1500 [facility] Last Admin: 06/01/22 14:53 Dose: 900 mg Gabapentin (Gabapentin 300 Mg Capsule) 900 mg PO BID@1100,2100 [facility] Last Admin: 06/01/22 11:30 Dose: 900 mg Hydrocortisone (Hydrocortisone 1 % Ointment 28.35 Gm Tube) 1 appl TOPICAL BID PRN; Protocol PRN Reason: left hand Last Admin: 05/27/22 09:27 Dose: 1 appl Ibuprofen (Ibuprofen 800 Mg Tablet) 800 mg PO Q8H PRN PRN Reason: Pain, Moderate (Pain Scale 4-6 Last Admin: 06/01/22 14:53 Dose: 800 mg Lactic Acid (Ammonium Lactate 12 % Cream 140 Gm Tube) 1 appl TOPICAL BID PRN; Protocol PRN Reason: Dry Skin Last Admin: 05/31/22 08:41 Dose: 1 appl Lorazepam (Lorazepam 1 Mg Tablet) 1 mg PO Q4H PRN PRN Reason: Anxiety Last Admin: 06/01/22 12:34 Dose: 1 mg Magnesium Hydroxide (Milk Of Magnesia 30 Ml Oral.Susp) 30 ml PO DAILY PRN PRN Reason: Constipation Magnesium Oxide (Magnesium Oxide 400 Mg Tablet) 400 mg PO DAILY [facility] Last Admin: 06/01/22 08:19 Dose: 400 mg Midodrine (Midodrine Hcl 5 Mg Tablet) 5 mg PO TID@0900,1300,1800 [facility] Last Admin: 06/01/22 12:42 Dose: Not Given Multi-Ingred Cream/Lotion/Oil/Oint (Mineral Oil/Petrolatum,White 106 Gm Tube) 1 appl TOPICAL BID [facility]; Protocol Last Admin: 06/01/22 09:35 Dose: Not Given Multivitamins/Vitamin C (Multivitamin Tablet) 1 tab PO DAILY [facility] Last Admin: 06/01/22 08:18 Dose: 1 tab Nicotine (Nicotine 21 Mg Patch.Td24) 21 mg TRANSDERMA DAILY PRN PRN Reason: nicotine cravings Omeprazole (Omeprazole 20 Mg Capsule.Dr) 20 mg PO DAILY@0630 [facility] Last Admin: 06/01/22 06:24 Dose: 20 mg Trazodone HCl (Trazodone Hcl 50 Mg Tablet) 50 mg PO BEDTIME PRN PRN Reason: Insomnia Last Admin: 05/31/22 23:12 Dose: 50 mg Trolamine Salicylate (Trolamine Salicylate 10 % Cream 85 Gm Tube) 1 appl TOPICAL QID PRN; Protocol PRN Reason: low back pain Allergies Allergies Allergy/AdvReac Type Severity Reaction Status Date / Time aspirin [ASPIRIN] Allergy Unknown SENSITIVITY Verified 04/30/22 13:04 lisinopril Allergy Unknown falls, Verified 04/30/22 13:04 muscle weakness Assessment & Plan Assessment & Plan (1) Borderline personality disorder: Status: Acute Code(s): F60.3 - Borderline personality disorder Plan 05/16: continue outpt meds for now. cardiology consult for mgmt of BP and opinion on QTc mgmt. OT eval for ambulation and need for snf. build rapport, consider mood/anxiety medication as indicated. Patient educated on: diagnosis and substance abuse 05/17: per OT: She should continue using the walker. Her biggest issue is her orthostatic hypotension and frequently syncopizes (not in past 2 weeks though). As for her ability to live independently, yes, from a purely musculoskeletal standpoint. per Cardiology: 1) reduce midodrine to 5 mg TID, give 30 min prior to meals. 2) reduce carvedilol to 12.5 BID. 3) continue fludrocortisone as is. 4) BP Q3H WA. 5) hold midodrine for SBP > 150 or DBP > 95. 6) hold fludrocortisone if SBP > 150. 7) hold carvedilol if SBP < 110. 8) replete Mg to above 2. 9) replete K to above 4. 10) QTc up to 500 ms is acceptable for now. psych: stable presentation. 05/18: BP improved. gabapentin increased to 900 QID as of today.? otherwise continue current mgmt. 05/19: continue tx. 05/20: No changes to current treatment plan.? Will adjust Advil to 800 mg as needed up to 3 times per day consistent with patient's home regimen 05/21: No changes to current treatment plan. 05/22: wrist brace for carpal tunnel complaints. ativan 1 mg daily PRN for severe anxiety, only while hospitalized. very wordy today, seemingly evasive about discussing substantive issues regarding her Tx here and dispo planning. 05/23: extremely denigrating and accusatory, asserting staff enjoy her suffering and are intentionally doing things to make her suffer. demanding medical attention for myriad complaints, historical and chronic as well as more recent. alleging withholding of care. demanding to have a wheelchair, states she cannot ambulate due to foot pain. PT eval for wheelchair, T/C med consult for prominent and acute complaints. 05/24: declines mtg with , saying she is not in the mood. interdisciplinary mtg held re pt's care, plan to pursue more collateral, check [facility], refer for DMH services made. 05/25: quite angry/pressured with litany of complaints today. [facility] . placed on 1:1 for SIB. 05/26: periods of collaboration and calm today, interspersed with the recent aggressiveness and criticality. OBS decreased to Q5 min checks at pt request. she reports she will begin to take her medications again in response. denying any SIBI, states she will refrain from engaging in such. 05/28/22 Continue current regime, as she reports she believes it is beginning to work. Discussion of feeling hurt by some team interactions with her-continue to educate re process of therapy and rationale for questions she is asked. 05/29: denies banging her head over weekend, yet RN note from 05/28 states she did so. more pleasant today, focussed on scapegoating particular staff member rather than the class as a whole. paranoid unnamed staff are messing with her, however, such as my messing up her meal orders, as apparently happened twice over the weekend. divulged trauma-related nightmares and insomnia, considering prazosin (cardiology consulted). 05/30: calm, cooperative, not aggressive or critical today. agrees to trial of wellbutrin as adjunctive anti-depressant. 05/31: calm, cooperative. increasingly future-oriented and collaborative. will submit [facility] application. no side effects from medications. continue current mgmt, increase wellbutrin after 2 more days. 06/01: pleasant, even cheery. no complaints. one more day of wellbutrin 150, then increase to 300. revisit possibility of prazosin for nightmares and insomnia in PTSD. Reason for contiued inpatient stay Substantial Risk for: inability to function and rapid decompensation Time Spent With Patient Time: Total time managing care of this patient today __20__ minutes.
[2022-06-01 17:26] VITALS: BP 191/89; PULSE 83; O2SAT 100
--- NOTE | 2022-06-01 17:37 | PC.NURSE ---
Elevated BP without symptoms reported to Dr Ayoub. HS Carvedilol given early per MD order.
[2022-06-01 20:45] VITALS: BP 133/70; PULSE 80; RESP 18; TEMP 36.3; O2SAT 100
[2022-06-02] MEDS: Ibuprofen 800 MG TABLET PO ×2 (02:03→20:36)
[2022-06-02] MEDS: Cyclobenzaprine HCl 10 MG TABLET PO ×4 (02:03→20:36)
[2022-06-02] MEDS: traZODone HCL 50 MG TABLET PO (02:04)
[2022-06-02] MEDS: Omeprazole 20 MG CAPSULE.DR PO (07:01)
[2022-06-02] MEDS: Gabapentin 300 MG CAPSULE 900 MG PO ×3 (07:01→14:47)
[2022-06-02] MEDS: DULoxetine HCl 60 MG CAPSULE.DR PO (08:51)
[2022-06-02] MEDS: Multivitamin TABLET 1 TAB PO (08:51)
[2022-06-02] MEDS: carvediloL 12.5 MG TABLET PO ×2 (08:51→20:36)
[2022-06-02] MEDS: Magnesium Oxide 400 MG TABLET PO (08:52)
[2022-06-02] MEDS: buPROPion HCl XL 150 MG TAB.ER.24H PO (08:52)
[2022-06-02] MEDS: Clopidogrel Bisulfate 75 MG TABLET PO (08:53)
[2022-06-02] MEDS: Aspirin Enteric Coated 81 MG TABLET.DR PO (08:53)
[2022-06-02] MEDS: Fludrocortisone Acetate 0.1 MG TABLET PO (08:53)
[2022-06-02] MEDS: Atorvastatin Calcium 80 MG TABLET PO (08:53)
[2022-06-02 08:55] VITALS: BP 149/86; PULSE 91; RESP 19; TEMP 36.6; O2SAT 99
[2022-06-02] MEDS: LORazepam 1 MG TABLET PO ×3 (08:57→20:37)
[2022-06-02] MEDS: Midodrine HCl 5 MG TABLET PO (12:55)
[2022-06-02 12:57] VITALS: BP 130/74; PULSE 82
--- NOTE | 2022-06-02 14:04 | HO.PSYCHPN ---
Subjective Subjective Date of Service: 06/02/22 Reason For Visit: SI Interim History: calm, cooperative, engaged. interested in swapping out gabapentin and trying lyrica. will do. will hold on adding any prazosin at HS for now. wellbutrin to be increased tomorrow. per staff, visible, attending groups. anxiety mildly improved. upset her lunch was messed up yesterday, wouldn't order dinner. plesant eves, anx 8, dep 10. denied SI/HI but also said i live in suicidal thoughts. reportedly sleeping well. [employer] [facility] has been submitted. help-rejecting in group. Mental Status Exam Mental Status Exam Narrative: cooperative. no PMA/PMR. speech nml rate, loudness, amount, latency. thoughts linear and logical, not aggressive or critical today. affect full range, normo-intense, non-labile. no SI/HI/AVH expressed. large bruised area over right neck into occipital area. Diagnostics Vital Signs (24Hr): Vital Signs - 24 hr 06/01/22 17:26 06/01/22 20:45 06/02/22 08:55 Temperature 97.4 F 97.9 F Pulse Rate 83 80 91 Respiratory Rate 18 19 Blood Pressure 191/89 H 133/70 149/86 H Pulse Oximetry 100 100 99 Oxygen Delivery Method Room Air Room Air 06/02/22 12:57 Temperature Pulse Rate 82 Respiratory Rate Blood Pressure 130/74 Pulse Oximetry Oxygen Delivery Method BMI result Body Mass Index 30.2 Labs Results: 05/15/22 10:32 05/16/22 08:44 Imaging Radiology Impressions: ITS Impressions Venous Duplex 05/22/22 21:36 IMPRESSION: No DVT demonstrated in the left lower extremity. Brain MRI 05/26/22 13:18 IMPRESSION: There are scattered nonspecific signal changes primarily involving the periventricular white matter. There is a single focus of T2 FLAIR signal hyperintensity within the left nick with associated ill-defined enhancement on postcontrast imaging. This finding could represent a small developmental venous anomaly or capillary telangiectasia. The possibility of active demyelination in the setting of suspected demyelinating disease cannot be definitively excluded but is felt to be less likely based on the distribution of chronic white matter disease. A follow-up brain MRI without and with contrast can be obtained at 6 months to assess the stability of this finding. Otherwise no abnormal enhancement visualized elsewhere within the [id number] of this examination. No evidence of acute territorial infarct or hemorrhage. Medications Medications Current Medications Acetaminophen (Acetaminophen 325 Mg Tablet) 650 mg PO Q6H PRN PRN Reason: Headache/Pain Mild Scale (1-3) Last Admin: 05/19/22 06:21 Dose: 650 mg Al Hydroxide/Mg Hydroxide (Magnesium Hydrox/Alum Hydrox 30 Ml Oral.Susp) 30 ml PO Q6H PRN PRN Reason: Heartburn/Nausea Aspirin (Aspirin Enteric Coated 81 Mg Tablet.) 81 mg PO DAILY [facility] Last Admin: 06/02/22 08:53 Dose: 81 mg Atorvastatin Calcium (Atorvastatin Calcium 80 Mg Tablet) 80 mg PO DAILY [facility] Last Admin: 06/02/22 08:53 Dose: 80 mg Bupropion HCl (Bupropion Hcl Xl 300 Mg Tab.Er.24h) 300 mg PO DAILY [facility] Carvedilol (Carvedilol 12.5 Mg Tablet) 12.5 mg PO BID [facility] Last Admin: 06/02/22 08:51 Dose: 12.5 mg Clopidogrel Bisulfate (Clopidogrel Bisulfate 75 Mg Tablet) 75 mg PO DAILY [facility] Last Admin: 06/02/22 08:53 Dose: 75 mg Cyclobenzaprine HCl (Cyclobenzaprine Hcl 10 Mg Tablet) 10 mg PO Q6H PRN PRN Reason: Muscle Spasm Last Admin: 06/02/22 08:56 Dose: 10 mg Duloxetine HCl (Duloxetine Hcl 60 Mg Capsule.) 60 mg PO DAILY [facility] Last Admin: 06/02/22 08:51 Dose: 60 mg Fludrocortisone Acetate (Fludrocortisone Acetate 0.1 Mg Tablet) 0.1 mg PO DAILY [facility] Last Admin: 06/02/22 08:53 Dose: 0.1 mg Gabapentin (Gabapentin 300 Mg Capsule) 900 mg PO BID@0630,1500 [facility] Last Admin: 06/02/22 07:01 Dose: 900 mg Gabapentin (Gabapentin 300 Mg Capsule) 900 mg PO BID@1100,2100 [facility] Last Admin: 06/02/22 10:45 Dose: 900 mg Hydrocortisone (Hydrocortisone 1 % Ointment 28.35 Gm Tube) 1 appl TOPICAL BID PRN; Protocol PRN Reason: left hand Last Admin: 05/27/22 09:27 Dose: 1 appl Ibuprofen (Ibuprofen 800 Mg Tablet) 800 mg PO Q8H PRN PRN Reason: Pain, Moderate (Pain Scale 4-6 Last Admin: 06/02/22 02:03 Dose: 800 mg Lactic Acid (Ammonium Lactate 12 % Cream 140 Gm Tube) 1 appl TOPICAL BID PRN; Protocol PRN Reason: Dry Skin Last Admin: 05/31/22 08:41 Dose: 1 appl Lorazepam (Lorazepam 1 Mg Tablet) 1 mg PO Q4H PRN PRN Reason: Anxiety Last Admin: 06/02/22 08:57 Dose: 1 mg Magnesium Hydroxide (Milk Of Magnesia 30 Ml Oral.Susp) 30 ml PO DAILY PRN PRN Reason: Constipation Magnesium Oxide (Magnesium Oxide 400 Mg Tablet) 400 mg PO DAILY [facility] Last Admin: 06/02/22 08:52 Dose: 400 mg Midodrine (Midodrine Hcl 5 Mg Tablet) 5 mg PO TID@0900,1300,1800 [facility] Last Admin: 06/02/22 12:55 Dose: 5 mg Multi-Ingred Cream/Lotion/Oil/Oint (Mineral Oil/Petrolatum,White 106 Gm Tube) 1 appl TOPICAL BID CHE; Protocol Last Admin: 06/02/22 08:55 Dose: Not Given Multivitamins/Vitamin C (Multivitamin Tablet) 1 tab PO DAILY [facility] Last Admin: 06/02/22 08:51 Dose: 1 tab Nicotine (Nicotine 21 Mg Patch.Td24) 21 mg TRANSDERMA DAILY PRN PRN Reason: nicotine cravings Omeprazole (Omeprazole 20 Mg Capsule.Dr) 20 mg PO DAILY@0630 [facility] Last Admin: 06/02/22 07:01 Dose: 20 mg Trazodone HCl (Trazodone Hcl 50 Mg Tablet) 50 mg PO BEDTIME PRN PRN Reason: Insomnia Last Admin: 06/02/22 02:04 Dose: 50 mg Trolamine Salicylate (Trolamine Salicylate 10 % Cream 141 Gm Tube) 1 appl TOPICAL QID PRN; Protocol PRN Reason: low back pain Allergies Allergies Allergy/AdvReac Type Severity Reaction Status Date / Time aspirin [ASPIRIN] Allergy Unknown SENSITIVITY Verified 04/30/22 13:04 lisinopril Allergy Unknown falls, Verified 04/30/22 13:04 muscle weakness Assessment & Plan Assessment & Plan (1) Borderline personality disorder: Status: Acute Code(s): F60.3 - Borderline personality disorder Plan 05/16: continue outpt meds for now. cardiology consult for mgmt of BP and opinion on QTc mgmt. OT eval for ambulation and need for halfway. build rapport, consider mood/anxiety medication as indicated. Patient educated on: diagnosis and substance abuse 05/17: per OT: She should continue using the walker. Her biggest issue is her orthostatic hypotension and frequently syncopizes (not in past 2 weeks though). As for her ability to live independently, yes, from a purely musculoskeletal standpoint. per Cardiology: 1) reduce midodrine to 5 mg TID, give 30 min prior to meals. 2) reduce carvedilol to 12.5 BID. 3) continue fludrocortisone as is. 4) BP Q3H WA. 5) hold midodrine for SBP > 150 or DBP > 95. 6) hold fludrocortisone if SBP > 150. 7) hold carvedilol if SBP < 110. 8) replete Mg to above 2. 9) replete K to above 4. 10) QTc up to 500 ms is acceptable for now. psych: stable presentation. 05/18: BP improved. gabapentin increased to 900 QID as of today.? otherwise continue current mgmt. 05/19: continue tx. 05/20: No changes to current treatment plan.? Will adjust Advil to 800 mg as needed up to 3 times per day consistent with patient's home regimen 05/21: No changes to current treatment plan. 05/22: wrist brace for carpal tunnel complaints. ativan 1 mg daily PRN for severe anxiety, only while hospitalized. very wordy today, seemingly evasive about discussing substantive issues regarding her Tx here and dispo planning. 05/23: extremely denigrating and accusatory, asserting staff enjoy her suffering and are intentionally doing things to make her suffer. demanding medical attention for myriad complaints, historical and chronic as well as more recent. alleging withholding of care. demanding to have a wheelchair, states she cannot ambulate due to foot pain. PT eval for wheelchair, T/C med consult for prominent and acute complaints. 05/24: declines mtg with MD, saying she is not in the mood. interdisciplinary mtg held re pt's care, plan to pursue more collateral, check [facility], refer for DMH services made. 05/25: quite angry/pressured with litany of complaints today. [facility] . placed on 1:1 for SIB. 05/26: periods of collaboration and calm today, interspersed with the recent aggressiveness and criticality. OBS decreased to Q5 min checks at pt request. she reports she will begin to take her medications again in response. denying any SIBI, states she will refrain from engaging in such. 05/28/22 Continue current regime, as she reports she believes it is beginning to work. Discussion of feeling hurt by some team interactions with her-continue to educate re process of therapy and rationale for questions she is asked. 05/29: denies banging her head over weekend, yet RN note from 05/28 states she did so. more pleasant today, focussed on scapegoating particular staff member rather than the class as a whole. paranoid unnamed staff are messing with her, however, such as my messing up her meal orders, as apparently happened twice over the weekend. divulged trauma-related nightmares and insomnia, considering prazosin (cardiology consulted). 05/30: calm, cooperative, not aggressive or critical today. agrees to trial of wellbutrin as adjunctive anti-depressant. 05/31: calm, cooperative. increasingly future-oriented and collaborative. will submit [facility] application. no side effects from medications. continue current mgmt, increase wellbutrin after 2 more days. 06/01: pleasant, even cheery. no complaints. one more day of wellbutrin 150, then increase to 300. revisit possibility of prazosin for nightmares and insomnia in PTSD. 06/02: continues pleasant and cheery. asking for gabapentin taper and lyrica titration. wellbutrin to be increased to 300 mg as of tomorrow. otherwise continue current mgmt. Reason for contiued inpatient stay Substantial Risk for: harm to self, harm to others, inability to function and rapid decompensation Time Spent With Patient Time: Total time managing care of this patient today _25___ minutes.
[2022-06-02 18:56] VITALS: BP 172/92; PULSE 94
[2022-06-02 18:57] VITALS: BP 174/82; PULSE 89
--- NOTE | 2022-06-02 18:59 | PC.NURSE ---
Pt had BP of 172/92 with HR of 94, 5 minutes later recheck was 174/82 with HR of 89. Mary Simeon director [employer]al [employer] notified.
[2022-06-02 20:34] VITALS: BP 143/70; PULSE 92; RESP 18; TEMP 36.7; O2SAT 97
[2022-06-02] MEDS: Pregabalin 75 MG CAPSULE PO (20:36)
[2022-06-02] MEDS: Gabapentin 400 MG CAPSULE PO (20:36)
[2022-06-03] MEDS: Cyclobenzaprine HCl 10 MG TABLET PO ×3 (01:10→21:39)
[2022-06-03] MEDS: traZODone HCL 50 MG TABLET PO (01:11)
[2022-06-03] MEDS: Ibuprofen 800 MG TABLET PO ×2 (07:04→14:53)
[2022-06-03] MEDS: Omeprazole 20 MG CAPSULE.DR PO (07:04)
[2022-06-03] MEDS: LORazepam 1 MG TABLET PO ×3 (07:04→20:15)
[2022-06-03] MEDS: Gabapentin 300 MG CAPSULE 600 MG PO ×2 (07:04→14:54)
[2022-06-03 08:00] VITALS: BP 142/88; PULSE 87; RESP 20; TEMP 36.7; O2SAT 98
[2022-06-03] MEDS: buPROPion HCl XL 300 MG TAB.ER.24H PO (09:08)
[2022-06-03] MEDS: carvediloL 12.5 MG TABLET PO ×2 (09:08→20:15)
[2022-06-03] MEDS: Pregabalin 75 MG CAPSULE PO ×3 (09:09→20:14)
[2022-06-03] MEDS: Clopidogrel Bisulfate 75 MG TABLET PO (09:09)
[2022-06-03] MEDS: Magnesium Oxide 400 MG TABLET PO (09:09)
[2022-06-03] MEDS: Fludrocortisone Acetate 0.1 MG TABLET PO (09:10)
[2022-06-03] MEDS: Multivitamin TABLET 1 TAB PO (09:10)
[2022-06-03] MEDS: Atorvastatin Calcium 80 MG TABLET PO (09:10)
[2022-06-03] MEDS: DULoxetine HCl 60 MG CAPSULE.DR PO (09:11)
[2022-06-03] MEDS: Aspirin Enteric Coated 81 MG TABLET.DR PO (09:12)
[2022-06-03] MEDS: Mineral Oil/Petrolatum,White 106 GM Tube 1 APPL TOPICAL (11:10)
[2022-06-03] MEDS: Gabapentin 400 MG CAPSULE PO ×2 (11:10→20:13)
--- NOTE | 2022-06-03 12:53 | HO.PSYCHPN ---
Subjective Subjective Date of Service: 06/03/22 Reason For Visit: SI Interim History: Discussed with team, pt continues to report feeling depressed, anxious, withdrawn. I attempted to interview pt, found laying down in bed reading, declines to talk other than to says she feels safe and does not have questions or concerns. Mental Status Exam Mental Status Exam Narrative: cooperative.? no PMA/PMR.? speech nml rate, loudness, amount, latency.? thoughts linear and logical, not aggressive or critical today.? affect full range, normo-intense, non-labile.? no SI/HI/AVH expressed.? large bruised area over right neck into occipital area. Diagnostics Vital Signs (24Hr): Vital Signs - 24 hr 06/02/22 12:57 06/02/22 18:56 06/02/22 18:57 Temperature Pulse Rate 82 94 89 Respiratory Rate Blood Pressure 130/74 172/92 H 174/82 H Pulse Oximetry Oxygen Delivery Method 06/02/22 20:34 06/03/22 08:00 Temperature 98.1 F 98.1 F Pulse Rate 92 87 Respiratory Rate 18 20 Blood Pressure 143/70 H 142/88 H Pulse Oximetry 97 98 Oxygen Delivery Method Room Air Room Air BMI result Body Mass Index 30.2 Labs Results: 05/15/22 10:32 05/16/22 08:44 Imaging Radiology Impressions: ITS Impressions Venous Duplex 05/22/22 21:36 IMPRESSION: No DVT demonstrated in the left lower extremity. Brain MRI 05/26/22 13:18 IMPRESSION: There are scattered nonspecific signal changes primarily involving the periventricular white matter. There is a single focus of T2 FLAIR signal hyperintensity within the left nick with associated ill-defined enhancement on postcontrast imaging. This finding could represent a small developmental venous anomaly or capillary telangiectasia. The possibility of active demyelination in the setting of suspected demyelinating disease cannot be definitively excluded but is felt to be less likely based on the distribution of chronic white matter disease. A follow-up brain MRI without and with contrast can be obtained at 6 months to assess the stability of this finding. Otherwise no abnormal enhancement visualized elsewhere within the [id number] of this examination. No evidence of acute territorial infarct or hemorrhage. Medications Medications Current Medications Acetaminophen (Acetaminophen 325 Mg Tablet) 650 mg PO Q6H PRN PRN Reason: Headache/Pain Mild Scale (1-3) Last Admin: 12/09/22 06:21 Dose: 650 mg Al Hydroxide/Mg Hydroxide (Magnesium Hydrox/Alum Hydrox 30 Ml Oral.Susp) 30 ml PO Q6H PRN PRN Reason: Heartburn/Nausea Aspirin (Aspirin Enteric Coated 81 Mg Tablet.Dr) 81 mg PO DAILY [facility] Last Admin: 06/03/22 09:12 Dose: 81 mg Atorvastatin Calcium (Atorvastatin Calcium 80 Mg Tablet) 80 mg PO DAILY [facility] Last Admin: 06/03/22 09:10 Dose: 80 mg Bupropion HCl (Bupropion Hcl Xl 300 Mg Tab.Er.24h) 300 mg PO DAILY [facility] Last Admin: 06/03/22 09:08 Dose: 300 mg Carvedilol (Carvedilol 12.5 Mg Tablet) 12.5 mg PO BID [facility] Last Admin: 06/03/22 09:08 Dose: 12.5 mg Clopidogrel Bisulfate (Clopidogrel Bisulfate 75 Mg Tablet) 75 mg PO DAILY [facility] Last Admin: 06/03/22 09:09 Dose: 75 mg Cyclobenzaprine HCl (Cyclobenzaprine Hcl 10 Mg Tablet) 10 mg PO Q6H PRN PRN Reason: Muscle Spasm Last Admin: 06/03/22 01:10 Dose: 10 mg Duloxetine HCl (Duloxetine Hcl 60 Mg Capsule.) 60 mg PO DAILY [facility] Last Admin: 06/03/22 09:11 Dose: 60 mg Fludrocortisone Acetate (Fludrocortisone Acetate 0.1 Mg Tablet) 0.1 mg PO DAILY [facility] Last Admin: 06/03/22 09:10 Dose: 0.1 mg Gabapentin (Gabapentin 300 Mg Capsule) 600 mg PO BID@0630,1500 [facility] Last Admin: 06/03/22 07:04 Dose: 600 mg Gabapentin (Gabapentin 400 Mg Capsule) 400 mg PO BID@1100,2100 [facility] Last Admin: 06/03/22 11:10 Dose: 400 mg Hydrocortisone (Hydrocortisone 1 % Ointment 28.35 Gm Tube) 1 appl TOPICAL BID PRN; Protocol PRN Reason: left hand Last Admin: 05/27/22 09:27 Dose: 1 appl Ibuprofen (Ibuprofen 800 Mg Tablet) 800 mg PO Q8H PRN PRN Reason: Pain, Moderate (Pain Scale 4-6 Last Admin: 06/03/22 07:04 Dose: 800 mg Lactic Acid (Ammonium Lactate 12 % Cream 140 Gm Tube) 1 appl TOPICAL BID PRN; Protocol PRN Reason: Dry Skin Last Admin: 05/31/22 08:41 Dose: 1 appl Lorazepam (Lorazepam 1 Mg Tablet) 1 mg PO Q4H PRN PRN Reason: Anxiety Last Admin: 06/03/22 11:10 Dose: 1 mg Magnesium Hydroxide (Milk Of Magnesia 30 Ml Oral.Susp) 30 ml PO DAILY PRN PRN Reason: Constipation Magnesium Oxide (Magnesium Oxide 400 Mg Tablet) 400 mg PO DAILY [facility] Last Admin: 06/03/22 09:09 Dose: 400 mg Midodrine (Midodrine Hcl 5 Mg Tablet) 5 mg PO TID@0900,1300,1800 [facility] Last Admin: 06/03/22 11:00 Dose: Not Given Multi-Ingred Cream/Lotion/Oil/Oint (Mineral Oil/Petrolatum,White 106 Gm Tube) 1 appl TOPICAL BID CHE; Protocol Last Admin: 06/03/22 11:10 Dose: 1 appl Multivitamins/Vitamin C (Multivitamin Tablet) 1 tab PO DAILY [facility] Last Admin: 06/03/22 09:10 Dose: 1 tab Nicotine (Nicotine 21 Mg Patch.Td24) 21 mg TRANSDERMA DAILY PRN PRN Reason: nicotine cravings Omeprazole (Omeprazole 20 Mg Capsule.Dr) 20 mg PO DAILY@0630 [facility] Last Admin: 06/03/22 07:04 Dose: 20 mg Pregabalin (Pregabalin 75 Mg Capsule) 75 mg PO TID [facility] Last Admin: 06/03/22 09:09 Dose: 75 mg Trazodone HCl (Trazodone Hcl 50 Mg Tablet) 50 mg PO BEDTIME PRN PRN Reason: Insomnia Last Admin: 06/03/22 01:11 Dose: 50 mg Trolamine Salicylate (Trolamine Salicylate 10 % Cream 141 Gm Tube) 1 appl TOPICAL QID PRN; Protocol PRN Reason: low back pain Allergies Allergies Allergy/AdvReac Type Severity Reaction Status Date / Time aspirin [ASPIRIN] Allergy Unknown SENSITIVITY Verified 04/30/22 13:04 lisinopril Allergy Unknown falls, Verified 04/30/22 13:04 muscle weakness Assessment & Plan Assessment & Plan (1) Borderline personality disorder: Status: Acute Code(s): F60.3 - Borderline personality disorder Plan 05/16: continue outpt meds for now. cardiology consult for mgmt of BP and opinion on QTc mgmt. OT eval for ambulation and need for senior living. build rapport, consider mood/anxiety medication as indicated. Patient educated on: diagnosis and substance abuse 05/17: per OT: She should continue using the walker. Her biggest issue is her orthostatic hypotension and frequently syncopizes (not in past 2 weeks though). As for her ability to live independently, yes, from a purely musculoskeletal standpoint. per Cardiology: 1) reduce midodrine to 5 mg TID, give 30 min prior to meals. 2) reduce carvedilol to 12.5 BID. 3) continue fludrocortisone as is. 4) BP Q3H WA. 5) hold midodrine for SBP > 150 or DBP > 95. 6) hold fludrocortisone if SBP > 150. 7) hold carvedilol if SBP < 110. 8) replete Mg to above 2. 9) replete K to above 4. 10) QTc up to 500 ms is acceptable for now. psych: stable presentation. 05/18: BP improved. gabapentin increased to 900 QID as of today.? otherwise continue current mgmt. 05/19: continue tx. 05/20: No changes to current treatment plan.? Will adjust Advil to 800 mg as needed up to 3 times per day consistent with patient's home regimen 05/21: No changes to current treatment plan. 05/22: wrist brace for carpal tunnel complaints. ativan 1 mg daily PRN for severe anxiety, only while hospitalized. very wordy today, seemingly evasive about discussing substantive issues regarding her Tx here and dispo planning. 05/23: extremely denigrating and accusatory, asserting staff enjoy her suffering and are intentionally doing things to make her suffer. demanding medical attention for myriad complaints, historical and chronic as well as more recent. alleging withholding of care. demanding to have a wheelchair, states she cannot ambulate due to foot pain. PT eval for wheelchair, T/C med consult for prominent and acute complaints. 05/24: declines mtg with MD, saying she is not in the mood. interdisciplinary mtg held re pt's care, plan to pursue more collateral, check [facility], refer for DMH services made. 05/25: quite angry/pressured with litany of complaints today. [facility] 26/30. placed on 1:1 for SIB. 05/26: periods of collaboration and calm today, interspersed with the recent aggressiveness and criticality. OBS decreased to Q5 min checks at pt request. she reports she will begin to take her medications again in response. denying any SIBI, states she will refrain from engaging in such. 05/28/22 Continue current regime, as she reports she believes it is beginning to work. Discussion of feeling hurt by some team interactions with her-continue to educate re process of therapy and rationale for questions she is asked. 05/29: denies banging her head over weekend, yet RN note from 05/28 states she did so. more pleasant today, focussed on scapegoating particular staff member rather than the class as a whole. paranoid unnamed staff are messing with her, however, such as my messing up her meal orders, as apparently happened twice over the weekend. divulged trauma-related nightmares and insomnia, considering prazosin (cardiology consulted). 05/30: calm, cooperative, not aggressive or critical today. agrees to trial of wellbutrin as adjunctive anti-depressant. 05/31: calm, cooperative. increasingly future-oriented and collaborative. will submit [facility] application. no side effects from medications. continue current mgmt, increase wellbutrin after 2 more days. 06/01: pleasant, even cheery. no complaints. one more day of wellbutrin 150, then increase to 300. revisit possibility of prazosin for nightmares and insomnia in PTSD. 06/02: continues pleasant and cheery. asking for gabapentin taper and lyrica titration. wellbutrin to be increased to 300 mg as of tomorrow. otherwise continue current mgmt. 06/03: No med changes, pt declines to meet with T/W, denies concerns Patient educated on: other Reason for contiued inpatient stay Substantial Risk for: harm to self, rapid decompensation and med/psych decompensation Time Spent With Patient Time: Total time managing care of this patient today ____ minutes.
[2022-06-03 14:50] VITALS: BP 151/86; PULSE 87; RESP 20; O2SAT 99
[2022-06-03] MEDS: Trolamine Salicylate 10 % Cream 141 gm Tube 1 APPL TOPICAL (15:47)
[2022-06-03 18:46] VITALS: BP 147/89; PULSE 93; RESP 20; TEMP 36.4; O2SAT 100
[2022-06-03 20:19] VITALS: BP 174/92; PULSE 92; RESP 18; TEMP 36.6; O2SAT 100
--- NOTE | 2022-06-03 20:47 | PC.NURSE ---
Patient Approached an [facility] and reported that she had been triggered in the 1:1. Patient reported that she broke a spoon in half, and began to cut her left wrist. This RN assessed left wrist wound and it appeared to be superficial with scant amounts of blood. Wound was cleansed and dressed with bacitracin and a band-aid. Patient denied pain in wound area. Patient reported that she does not have self harming thoughts at this time. Patient stated I am just going to wait til I get discharged and then do it the right way. I will just jump off the roof . Mary Simeon MD notified. Patient on 5 minute checks.
[2022-06-04] VITALS (10 sets, daily range): BP systolic 129–177; BP diastolic 79–102; PULSE 88–95; RESP 16–20; TEMP 36.4–36.6; O2SAT 99–100
[2022-06-04] MEDS: traZODone HCL 50 MG TABLET PO (00:31)
[2022-06-04] MEDS: Ibuprofen 800 MG TABLET PO ×3 (00:32→22:18)
[2022-06-04] MEDS: Gabapentin 300 MG CAPSULE 600 MG PO ×2 (06:40→14:59)
[2022-06-04] MEDS: Omeprazole 20 MG CAPSULE.DR PO (06:40)
[2022-06-04] MEDS: Cyclobenzaprine HCl 10 MG TABLET PO ×2 (08:10→14:50)
[2022-06-04] MEDS: LORazepam 1 MG TABLET PO ×4 (08:12→20:59)
[2022-06-04] MEDS: Pregabalin 75 MG CAPSULE PO ×3 (09:15→20:51)
[2022-06-04] MEDS: Multivitamin TABLET 1 TAB PO (09:15)
[2022-06-04] MEDS: Atorvastatin Calcium 80 MG TABLET PO (09:15)
[2022-06-04] MEDS: Clopidogrel Bisulfate 75 MG TABLET PO (09:16)
[2022-06-04] MEDS: DULoxetine HCl 60 MG CAPSULE.DR PO (09:18)
[2022-06-04] MEDS: Magnesium Oxide 400 MG TABLET PO (09:18)
[2022-06-04] MEDS: carvediloL 12.5 MG TABLET PO (09:19)
[2022-06-04] MEDS: Aspirin Enteric Coated 81 MG TABLET.DR PO (09:19)
[2022-06-04] MEDS: buPROPion HCl XL 300 MG TAB.ER.24H PO (09:19)
[2022-06-04] MEDS: Mineral Oil/Petrolatum,White 106 GM Tube 1 APPL TOPICAL (09:22)
--- NOTE | 2022-06-04 10:57 | HO.PSYCHPN ---
Subjective Subjective Date of Service: 06/04/22 Reason For Visit: SI Interim History: Discussed with staff, pt reported feeling hyperaroused, triggered during contact with staff yesterday evening, cut herself superficially with a spoon, this was dressed and cleaned and pt able to remain safe on 5 min checks. Spoke with pt, says [facility], its [place] so of course it sucks, feels anxious and depressed. Says Im just gonna hang out in my room. Unable to say if meds are helping, cross titrating gabapentin and lyrica. Says last night was terrible with pain, specifically in her feet, not sure if its due to neuropathy or plantar fasciitis. Mental Status Exam Mental Status Exam Narrative: cooperative.? no PMA/PMR.? speech nml rate, loudness, amount, latency.? thoughts linear and logical, not aggressive or critical today.? affect full range, normo-intense, non-labile.? no SI/HI/AVH expressed.? large bruised area over right neck into occipital area. Diagnostics Vital Signs (24Hr): Vital Signs - 24 hr 06/03/22 14:50 06/03/22 18:46 06/03/22 20:19 Temperature 97.6 F 97.8 F Pulse Rate 87 93 92 Respiratory Rate 20 20 18 Blood Pressure 151/86 H 147/89 H 174/92 H Pulse Oximetry 99 100 100 Oxygen Delivery Method Room Air Room Air Room Air 06/04/22 08:05 06/04/22 10:45 Temperature 97.8 F Pulse Rate 88 88 Respiratory Rate 20 20 Blood Pressure 152/95 H 138/84 Pulse Oximetry 99 100 Oxygen Delivery Method Room Air Room Air BMI result Body Mass Index 30.2 Labs Results: 05/15/22 10:32 05/16/22 08:44 Imaging Radiology Impressions: ITS Impressions Venous Duplex 05/22/22 21:36 IMPRESSION: No DVT demonstrated in the left lower extremity. Brain MRI 05/26/22 13:18 IMPRESSION: There are scattered nonspecific signal changes primarily involving the periventricular white matter. There is a single focus of T2 FLAIR signal hyperintensity within the left nick with associated ill-defined enhancement on postcontrast imaging. This finding could represent a small developmental venous anomaly or capillary telangiectasia. The possibility of active demyelination in the setting of suspected demyelinating disease cannot be definitively excluded but is felt to be less likely based on the distribution of chronic white matter disease. A follow-up brain MRI without and with contrast can be obtained at 6 months to assess the stability of this finding. Otherwise no abnormal enhancement visualized elsewhere within the [id number] of this examination. No evidence of acute territorial infarct or hemorrhage. Foot X-Ray 06/02/22 12:49 IMPRESSION: Right foot: *Partial visualization of marked osteoarthritis of the tibiotalar joint. *Partial visualization of an internal fixation screw within the distal fibula. *No acute abnormalities identified. Left foot: *Chronic posttraumatic deformity of the base of the fifth metatarsal. *No acute abnormalities identified. *Moderate plantar calcaneal enthesophyte which may represent the sequela of chronic plantar fasciitis. Foot X-Ray 06/02/22 12:49 IMPRESSION: Right foot: *Partial visualization of marked osteoarthritis of the tibiotalar joint. *Partial visualization of an internal fixation screw within the distal fibula. *No acute abnormalities identified. Left foot: *Chronic posttraumatic deformity of the base of the fifth metatarsal. *No acute abnormalities identified. *Moderate plantar calcaneal enthesophyte which may represent the sequela of chronic plantar fasciitis. Medications Medications Current Medications Acetaminophen (Acetaminophen 325 Mg Tablet) 650 mg PO Q6H PRN PRN Reason: Headache/Pain Mild Scale (1-3) Last Admin: 05/19/22 06:21 Dose: 650 mg Al Hydroxide/Mg Hydroxide (Magnesium Hydrox/Alum Hydrox 30 Ml Oral.Susp) 30 ml PO Q6H PRN PRN Reason: Heartburn/Nausea Aspirin (Aspirin Enteric Coated 81 Mg Tablet.) 81 mg PO DAILY [facility] Last Admin: 06/04/22 09:19 Dose: 81 mg Atorvastatin Calcium (Atorvastatin Calcium 80 Mg Tablet) 80 mg PO DAILY [facility] Last Admin: 06/04/22 09:15 Dose: 80 mg Bupropion HCl (Bupropion Hcl Xl 300 Mg Tab.Er.24h) 300 mg PO DAILY [facility] Last Admin: 06/04/22 09:19 Dose: 300 mg Carvedilol (Carvedilol 12.5 Mg Tablet) 12.5 mg PO BID [facility] Last Admin: 06/04/22 09:19 Dose: 12.5 mg Clopidogrel Bisulfate (Clopidogrel Bisulfate 75 Mg Tablet) 75 mg PO DAILY [facility] Last Admin: 06/04/22 09:16 Dose: 75 mg Cyclobenzaprine HCl (Cyclobenzaprine Hcl 10 Mg Tablet) 10 mg PO Q6H PRN PRN Reason: Muscle Spasm Last Admin: 06/04/22 08:10 Dose: 10 mg Duloxetine HCl (Duloxetine Hcl 60 Mg Capsule.Dr) 60 mg PO DAILY [facility] Last Admin: 06/04/22 09:18 Dose: 60 mg Fludrocortisone Acetate (Fludrocortisone Acetate 0.1 Mg Tablet) 0.1 mg PO DAILY [facility] Last Admin: 06/04/22 09:21 Dose: Not Given Gabapentin (Gabapentin 300 Mg Capsule) 600 mg PO BID@0630,1500 [facility] Last Admin: 06/04/22 06:40 Dose: 600 mg Gabapentin (Gabapentin 400 Mg Capsule) 400 mg PO BID@1100,2100 [facility] Last Admin: 06/03/22 20:13 Dose: 400 mg Hydrocortisone (Hydrocortisone 1 % Ointment 28.35 Gm Tube) 1 appl TOPICAL BID PRN; Protocol PRN Reason: left hand Last Admin: 05/27/22 09:27 Dose: 1 appl Ibuprofen (Ibuprofen 800 Mg Tablet) 800 mg PO Q8H PRN PRN Reason: Pain, Moderate (Pain Scale 4-6 Last Admin: 06/04/22 00:32 Dose: 800 mg Lactic Acid (Ammonium Lactate 12 % Cream 140 Gm Tube) 1 appl TOPICAL BID PRN; Protocol PRN Reason: Dry Skin Last Admin: 05/31/22 08:41 Dose: 1 appl Lorazepam (Lorazepam 1 Mg Tablet) 1 mg PO Q4H PRN PRN Reason: Anxiety Last Admin: 06/04/22 08:12 Dose: 1 mg Magnesium Hydroxide (Milk Of Magnesia 30 Ml Oral.Susp) 30 ml PO DAILY PRN PRN Reason: Constipation Magnesium Oxide (Magnesium Oxide 400 Mg Tablet) 400 mg PO DAILY [facility] Last Admin: 06/04/22 09:18 Dose: 400 mg Midodrine (Midodrine Hcl 5 Mg Tablet) 5 mg PO TID@0900,1300,1800 [facility] Last Admin: 06/04/22 09:25 Dose: Not Given Multi-Ingred Cream/Lotion/Oil/Oint (Mineral Oil/Petrolatum,White 106 Gm Tube) 1 appl TOPICAL BID [facility]; Protocol Last Admin: 06/04/22 09:22 Dose: 1 appl Multivitamins/Vitamin C (Multivitamin Tablet) 1 tab PO DAILY [facility] Last Admin: 06/04/22 09:15 Dose: 1 tab Nicotine (Nicotine 21 Mg Patch.Td24) 21 mg TRANSDERMA DAILY PRN PRN Reason: nicotine cravings Omeprazole (Omeprazole 20 Mg Capsule.Dr) 20 mg PO DAILY@0630 [facility] Last Admin: 06/04/22 06:40 Dose: 20 mg Pregabalin (Pregabalin 75 Mg Capsule) 75 mg PO TID [facility] Last Admin: 06/04/22 09:15 Dose: 75 mg Trazodone HCl (Trazodone Hcl 50 Mg Tablet) 50 mg PO BEDTIME PRN PRN Reason: Insomnia Last Admin: 06/04/22 00:31 Dose: 50 mg Trolamine Salicylate (Trolamine Salicylate 10 % Cream 141 Gm Tube) 1 appl TOPICAL QID PRN; Protocol PRN Reason: low back pain Last Admin: 06/03/22 15:47 Dose: 1 appl Allergies Allergies Allergy/AdvReac Type Severity Reaction Status Date / Time aspirin [ASPIRIN] Allergy Unknown SENSITIVITY Verified 04/30/22 13:04 lisinopril Allergy Unknown falls, Verified 04/30/22 13:04 muscle weakness Assessment & Plan Assessment & Plan (1) Borderline personality disorder: Status: Acute Code(s): F60.3 - Borderline personality disorder Plan 05/16: continue outpt meds for now. cardiology consult for mgmt of BP and opinion on QTc mgmt. OT eval for ambulation and need for custodial. build rapport, consider mood/anxiety medication as indicated. Patient educated on: diagnosis and substance abuse 05/17: per OT: She should continue using the walker. Her biggest issue is her orthostatic hypotension and frequently syncopizes (not in past 2 weeks though). As for her ability to live independently, yes, from a purely musculoskeletal standpoint. per Cardiology: 1) reduce midodrine to 5 mg TID, give 30 min prior to meals. 2) reduce carvedilol to 12.5 BID. 3) continue fludrocortisone as is. 4) BP Q3H WA. 5) hold midodrine for SBP > 150 or DBP > 95. 6) hold fludrocortisone if SBP > 150. 7) hold carvedilol if SBP < 110. 8) replete Mg to above 2. 9) replete K to above 4. 10) QTc up to 500 ms is acceptable for now. psych: stable presentation. 05/18: BP improved. gabapentin increased to 900 QID as of today.? otherwise continue current mgmt. 05/19: continue tx. 05/20: No changes to current treatment plan.? Will adjust Advil to 800 mg as needed up to 3 times per day consistent with patient's home regimen 05/21: No changes to current treatment plan. 05/22: wrist brace for carpal tunnel complaints. ativan 1 mg daily PRN for severe anxiety, only while hospitalized. very wordy today, seemingly evasive about discussing substantive issues regarding her Tx here and dispo planning. 05/23: extremely denigrating and accusatory, asserting staff enjoy her suffering and are intentionally doing things to make her suffer. demanding medical attention for myriad complaints, historical and chronic as well as more recent. alleging withholding of care. demanding to have a wheelchair, states she cannot ambulate due to foot pain. PT eval for wheelchair, T/C med consult for prominent and acute complaints. 05/24: declines mtg with MD, saying she is not in the mood. interdisciplinary mtg held re pt's care, plan to pursue more collateral, check [facility], refer for DMH services made. 05/25: quite angry/pressured with litany of complaints today. [facility] . placed on 1:1 for SIB. 05/26: periods of collaboration and calm today, interspersed with the recent aggressiveness and criticality. OBS decreased to Q5 min checks at pt request. she reports she will begin to take her medications again in response. denying any SIBI, states she will refrain from engaging in such. 05/28/22 Continue current regime, as she reports she believes it is beginning to work. Discussion of feeling hurt by some team interactions with her-continue to educate re process of therapy and rationale for questions she is asked. 05/29: denies banging her head over weekend, yet RN note from 05/28 states she did so. more pleasant today, focussed on scapegoating particular staff member rather than the class as a whole. paranoid unnamed staff are messing with her, however, such as my messing up her meal orders, as apparently happened twice over the weekend. divulged trauma-related nightmares and insomnia, considering prazosin (cardiology consulted). 05/30: calm, cooperative, not aggressive or critical today. agrees to trial of wellbutrin as adjunctive anti-depressant. 05/31: calm, cooperative. increasingly future-oriented and collaborative. will submit [facility] application. no side effects from medications. continue current mgmt, increase wellbutrin after 2 more days. 06/01: pleasant, even cheery. no complaints. one more day of wellbutrin 150, then increase to 300. revisit possibility of prazosin for nightmares and insomnia in PTSD. 06/02: continues pleasant and cheery. asking for gabapentin taper and lyrica titration. wellbutrin to be increased to 300 mg as of tomorrow. otherwise continue current mgmt. 06/03: No med changes, pt declines to meet with T/W, denies concerns 06/04: No med changes, continue with gabapentin taper and lyrica titration Patient educated on: therapeutic strategies Reason for contiued inpatient stay Substantial Risk for: harm to self, rapid decompensation and med/psych decompensation Time Spent With Patient Time: Total time managing care of this patient today ____ minutes.
[2022-06-04] MEDS: Gabapentin 400 MG CAPSULE PO ×2 (11:03→20:51)
[2022-06-05] MEDS: traZODone HCL 50 MG TABLET PO (00:28)
[2022-06-05] MEDS: Gabapentin 300 MG CAPSULE 600 MG PO ×2 (06:30→15:09)
[2022-06-05] MEDS: Omeprazole 20 MG CAPSULE.DR PO (06:31)
[2022-06-05] MEDS: Cyclobenzaprine HCl 10 MG TABLET PO ×3 (07:27→22:54)
[2022-06-05] MEDS: Ibuprofen 800 MG TABLET PO ×3 (07:27→22:53)
[2022-06-05 08:08] VITALS: BP 152/88; PULSE 86; RESP 18; TEMP 36; O2SAT 100
[2022-06-05] MEDS: LORazepam 1 MG TABLET PO ×3 (08:09→16:53)
[2022-06-05] MEDS: Multivitamin TABLET 1 TAB PO (08:09)
[2022-06-05] MEDS: buPROPion HCl XL 300 MG TAB.ER.24H PO (08:09)
[2022-06-05] MEDS: Atorvastatin Calcium 80 MG TABLET PO (08:09)
[2022-06-05] MEDS: Clopidogrel Bisulfate 75 MG TABLET PO (08:09)
[2022-06-05] MEDS: DULoxetine HCl 60 MG CAPSULE.DR PO (08:10)
[2022-06-05] MEDS: Aspirin Enteric Coated 81 MG TABLET.DR PO (08:10)
[2022-06-05] MEDS: carvediloL 12.5 MG TABLET PO ×2 (08:10→22:53)
[2022-06-05] MEDS: Pregabalin 75 MG CAPSULE PO ×3 (08:11→22:53)
[2022-06-05] MEDS: Magnesium Oxide 400 MG TABLET PO (08:11)
[2022-06-05] MEDS: Gabapentin 400 MG CAPSULE PO ×2 (10:34→22:53)
[2022-06-05] MEDS: Midodrine HCl 5 MG TABLET PO ×2 (12:32→18:04)
--- NOTE | 2022-06-05 13:16 | HO.PSYCHPN ---
Subjective Subjective Date of Service: 06/05/22 Reason For Visit: SI Interim History: Discussed with team. Spoke with pt, says her pain is horrible. She feels bored. Says the pain in her feet is worse today, sharp knife pains. Says I would rather not take anything but gabapentin again, thats what i did for three years and i was fine. i'll make the best of it but im not happy, a little bit pissed off. Mental Status Exam Mental Status Exam Narrative: cooperative.? no PMA/PMR.? speech nml rate, loudness, amount, latency.? thoughts linear and logical, not aggressive or critical today.? affect full range, normo-intense, non-labile.? no SI/HI/AVH expressed.? large bruised area over right neck into occipital area. Diagnostics Vital Signs (24Hr): Vital Signs - 24 hr 06/04/22 16:20 06/04/22 16:22 06/04/22 16:37 Temperature Pulse Rate Respiratory Rate Blood Pressure 174/102 H 163/100 H 158/95 H Pulse Oximetry Oxygen Delivery Method 06/04/22 17:55 06/04/22 20:25 06/04/22 20:27 Temperature 97.6 F Pulse Rate 90 90 94 Respiratory Rate 16 Blood Pressure 157/88 H 148/83 H 129/79 Pulse Oximetry 100 Oxygen Delivery Method Room Air 06/05/22 08:08 Temperature 96.8 F Pulse Rate 86 Respiratory Rate 18 Blood Pressure 152/88 H Pulse Oximetry 100 Oxygen Delivery Method Room Air BMI result Body Mass Index 30.2 Labs Results: 05/15/22 10:32 05/16/22 08:44 Imaging Radiology Impressions: ITS Impressions Venous Duplex 05/22/22 21:36 IMPRESSION: No DVT demonstrated in the left lower extremity. Brain MRI 05/26/22 13:18 IMPRESSION: There are scattered nonspecific signal changes primarily involving the periventricular white matter. There is a single focus of T2 FLAIR signal hyperintensity within the left nick with associated ill-defined enhancement on postcontrast imaging. This finding could represent a small developmental venous anomaly or capillary telangiectasia. The possibility of active demyelination in the setting of suspected demyelinating disease cannot be definitively excluded but is felt to be less likely based on the distribution of chronic white matter disease. A follow-up brain MRI without and with contrast can be obtained at 6 months to assess the stability of this finding. Otherwise no abnormal enhancement visualized elsewhere within the [id number] of this examination. No evidence of acute territorial infarct or hemorrhage. Foot X-Ray 06/02/22 12:49 IMPRESSION: Right foot: *Partial visualization of marked osteoarthritis of the tibiotalar joint. *Partial visualization of an internal fixation screw within the distal fibula. *No acute abnormalities identified. Left foot: *Chronic posttraumatic deformity of the base of the fifth metatarsal. *No acute abnormalities identified. *Moderate plantar calcaneal enthesophyte which may represent the sequela of chronic plantar fasciitis. Foot X-Ray 06/02/22 12:49 IMPRESSION: Right foot: *Partial visualization of marked osteoarthritis of the tibiotalar joint. *Partial visualization of an internal fixation screw within the distal fibula. *No acute abnormalities identified. Left foot: *Chronic posttraumatic deformity of the base of the fifth metatarsal. *No acute abnormalities identified. *Moderate plantar calcaneal enthesophyte which may represent the sequela of chronic plantar fasciitis. Medications Medications Current Medications Acetaminophen (Acetaminophen 325 Mg Tablet) 650 mg PO Q6H PRN PRN Reason: Headache/Pain Mild Scale (1-3) Last Admin: 05/19/22 06:21 Dose: 650 mg Al Hydroxide/Mg Hydroxide (Magnesium Hydrox/Alum Hydrox 30 Ml Oral.Susp) 30 ml PO Q6H PRN PRN Reason: Heartburn/Nausea Aspirin (Aspirin Enteric Coated 81 Mg Tablet.Dr) 81 mg PO DAILY [facility] Last Admin: 06/05/22 08:10 Dose: 81 mg Atorvastatin Calcium (Atorvastatin Calcium 80 Mg Tablet) 80 mg PO DAILY [facility] Last Admin: 06/05/22 08:09 Dose: 80 mg Bupropion HCl (Bupropion Hcl Xl 300 Mg Tab.Er.24h) 300 mg PO DAILY [facility] Last Admin: 06/05/22 08:09 Dose: 300 mg Carvedilol (Carvedilol 12.5 Mg Tablet) 12.5 mg PO BID [facility] Last Admin: 06/05/22 08:10 Dose: 12.5 mg Clopidogrel Bisulfate (Clopidogrel Bisulfate 75 Mg Tablet) 75 mg PO DAILY [facility] Last Admin: 06/05/22 08:09 Dose: 75 mg Cyclobenzaprine HCl (Cyclobenzaprine Hcl 10 Mg Tablet) 10 mg PO Q6H PRN PRN Reason: Muscle Spasm Last Admin: 06/05/22 07:27 Dose: 10 mg Duloxetine HCl (Duloxetine Hcl 60 Mg Capsule.Dr) 60 mg PO DAILY [facility] Last Admin: 06/05/22 08:10 Dose: 60 mg Fludrocortisone Acetate (Fludrocortisone Acetate 0.1 Mg Tablet) 0.1 mg PO DAILY [facility] Last Admin: 06/05/22 08:12 Dose: Not Given Gabapentin (Gabapentin 300 Mg Capsule) 600 mg PO BID@0630,1500 [facility] Last Admin: 06/05/22 06:30 Dose: 600 mg Gabapentin (Gabapentin 400 Mg Capsule) 400 mg PO BID@1100,2100 [facility] Last Admin: 06/05/22 10:34 Dose: 400 mg Hydrocortisone (Hydrocortisone 1 % Ointment 28.35 Gm Tube) 1 appl TOPICAL BID PRN; Protocol PRN Reason: left hand Last Admin: 05/27/22 09:27 Dose: 1 appl Ibuprofen (Ibuprofen 800 Mg Tablet) 800 mg PO Q8H PRN PRN Reason: Pain, Moderate (Pain Scale 4-6 Last Admin: 06/05/22 07:27 Dose: 800 mg Lactic Acid (Ammonium Lactate 12 % Cream 140 Gm Tube) 1 appl TOPICAL BID PRN; Protocol PRN Reason: Dry Skin Last Admin: 05/31/22 08:41 Dose: 1 appl Lorazepam (Lorazepam 1 Mg Tablet) 1 mg PO Q4H PRN PRN Reason: Anxiety Last Admin: 06/05/22 12:32 Dose: 1 mg Magnesium Hydroxide (Milk Of Magnesia 30 Ml Oral.Susp) 30 ml PO DAILY PRN PRN Reason: Constipation Magnesium Oxide (Magnesium Oxide 400 Mg Tablet) 400 mg PO DAILY [facility] Last Admin: 06/05/22 08:11 Dose: 400 mg Midodrine (Midodrine Hcl 5 Mg Tablet) 5 mg PO TID@0900,1300,1800 [facility] Last Admin: 06/05/22 12:32 Dose: 5 mg Multi-Ingred Cream/Lotion/Oil/Oint (Mineral Oil/Petrolatum,White 106 Gm Tube) 1 appl TOPICAL BID [facility]; Protocol Last Admin: 06/05/22 08:12 Dose: Not Given Multivitamins/Vitamin C (Multivitamin Tablet) 1 tab PO DAILY [facility] Last Admin: 06/05/22 08:09 Dose: 1 tab Nicotine (Nicotine 21 Mg Patch.Td24) 21 mg TRANSDERMA DAILY PRN PRN Reason: nicotine cravings Omeprazole (Omeprazole 20 Mg Capsule.) 20 mg PO DAILY@0630 [facility] Last Admin: 06/05/22 06:31 Dose: 20 mg Pregabalin (Pregabalin 75 Mg Capsule) 75 mg PO TID [facility] Last Admin: 06/05/22 08:11 Dose: 75 mg Trazodone HCl (Trazodone Hcl 50 Mg Tablet) 50 mg PO BEDTIME PRN PRN Reason: Insomnia Last Admin: 06/05/22 00:28 Dose: 50 mg Trolamine Salicylate (Trolamine Salicylate 10 % Cream 141 Gm Tube) 1 appl TOPICAL QID PRN; Protocol PRN Reason: low back pain Last Admin: 06/03/22 15:47 Dose: 1 appl Allergies Allergies Allergy/AdvReac Type Severity Reaction Status Date / Time aspirin [ASPIRIN] Allergy Unknown SENSITIVITY Verified 04/30/22 13:04 lisinopril Allergy Unknown falls, Verified 04/30/22 13:04 muscle weakness Assessment & Plan Assessment & Plan (1) Borderline personality disorder: Status: Acute Code(s): F60.3 - Borderline personality disorder Plan 05/16: continue outpt meds for now. cardiology consult for mgmt of BP and opinion on QTc mgmt. OT eval for ambulation and need for custodial. build rapport, consider mood/anxiety medication as indicated. Patient educated on: diagnosis and substance abuse 05/17: per OT: She should continue using the walker. Her biggest issue is her orthostatic hypotension and frequently syncopizes (not in past 2 weeks though). As for her ability to live independently, yes, from a purely musculoskeletal standpoint. per Cardiology: 1) reduce midodrine to 5 mg TID, give 30 min prior to meals. 2) reduce carvedilol to 12.5 BID. 3) continue fludrocortisone as is. 4) BP Q3H WA. 5) hold midodrine for SBP > 150 or DBP > 95. 6) hold fludrocortisone if SBP > 150. 7) hold carvedilol if SBP < 110. 8) replete Mg to above 2. 9) replete K to above 4. 10) QTc up to 500 ms is acceptable for now. psych: stable presentation. 05/18: BP improved. gabapentin increased to 900 QID as of today.? otherwise continue current mgmt. 05/19: continue tx. 05/20: No changes to current treatment plan.? Will adjust Advil to 800 mg as needed up to 3 times per day consistent with patient's home regimen 05/21: No changes to current treatment plan. 05/22: wrist brace for carpal tunnel complaints. ativan 1 mg daily PRN for severe anxiety, only while hospitalized. very wordy today, seemingly evasive about discussing substantive issues regarding her Tx here and dispo planning. 05/23: extremely denigrating and accusatory, asserting staff enjoy her suffering and are intentionally doing things to make her suffer. demanding medical attention for myriad complaints, historical and chronic as well as more recent. alleging withholding of care. demanding to have a wheelchair, states she cannot ambulate due to foot pain. PT eval for wheelchair, T/C med consult for prominent and acute complaints. 05/24: declines mtg with MD, saying she is not in the mood. interdisciplinary mtg held re pt's care, plan to pursue more collateral, check [facility], refer for DMH services made. 05/25: quite angry/pressured with litany of complaints today. [facility] . placed on 1:1 for SIB. 05/26: periods of collaboration and calm today, interspersed with the recent aggressiveness and criticality. OBS decreased to Q5 min checks at pt request. she reports she will begin to take her medications again in response. denying any SIBI, states she will refrain from engaging in such. 05/28/22 Continue current regime, as she reports she believes it is beginning to work. Discussion of feeling hurt by some team interactions with her-continue to educate re process of therapy and rationale for questions she is asked. 05/29: denies banging her head over weekend, yet RN note from 05/28 states she did so. more pleasant today, focussed on scapegoating particular staff member rather than the class as a whole. paranoid unnamed staff are messing with her, however, such as my messing up her meal orders, as apparently happened twice over the weekend. divulged trauma-related nightmares and insomnia, considering prazosin (cardiology consulted). 05/30: calm, cooperative, not aggressive or critical today. agrees to trial of wellbutrin as adjunctive anti-depressant. 05/31: calm, cooperative. increasingly future-oriented and collaborative. will submit [facility] application. no side effects from medications. continue current mgmt, increase wellbutrin after 2 more days. 06/01: pleasant, even cheery. no complaints. one more day of wellbutrin 150, then increase to 300. revisit possibility of prazosin for nightmares and insomnia in PTSD. 06/02: continues pleasant and cheery. asking for gabapentin taper and lyrica titration. wellbutrin to be increased to 300 mg as of tomorrow. otherwise continue current mgmt. 06/03: No med changes, pt declines to meet with T/W, denies concerns 06/04: No med changes, continue with gabapentin taper and lyrica titration 06/05: No med changes, continue with gabapentin taper and lyrica titration Patient educated on: medication risk/benefits and therapeutic strategies Reason for contiued inpatient stay Substantial Risk for: harm to self, rapid decompensation and med/psych decompensation Time Spent With Patient Time: Total time managing care of this patient today ____ minutes.
[2022-06-05 18:00] VITALS: BP 146/76; PULSE 90
[2022-06-05 22:50] VITALS: BP 124/65; PULSE 80; RESP 16; TEMP 36.1; O2SAT 99
[2022-06-06] MEDS: Omeprazole 20 MG CAPSULE.DR PO (06:34)
[2022-06-06] MEDS: Gabapentin 300 MG CAPSULE 600 MG PO (06:34)
[2022-06-06 08:20] VITALS: BP 142/82; PULSE 87; RESP 18; TEMP 36.3; O2SAT 100
[2022-06-06] MEDS: Fludrocortisone Acetate 0.1 MG TABLET PO (08:21)
[2022-06-06] MEDS: Pregabalin 75 MG CAPSULE PO (08:21)
[2022-06-06] MEDS: Atorvastatin Calcium 80 MG TABLET PO (08:22)
[2022-06-06] MEDS: Ibuprofen 800 MG TABLET PO ×2 (08:22→16:58)
[2022-06-06] MEDS: carvediloL 12.5 MG TABLET PO ×2 (08:23→20:36)
[2022-06-06] MEDS: Clopidogrel Bisulfate 75 MG TABLET PO (08:24)
[2022-06-06] MEDS: Cyclobenzaprine HCl 10 MG TABLET PO ×3 (08:24→21:05)
[2022-06-06] MEDS: Multivitamin TABLET 1 TAB PO (08:24)
[2022-06-06] MEDS: buPROPion HCl XL 300 MG TAB.ER.24H PO (08:24)
[2022-06-06] MEDS: DULoxetine HCl 60 MG CAPSULE.DR PO (08:25)
[2022-06-06] MEDS: Aspirin Enteric Coated 81 MG TABLET.DR PO (08:25)
[2022-06-06] MEDS: Midodrine HCl 5 MG TABLET PO (08:37)
[2022-06-06] MEDS: Magnesium Oxide 400 MG TABLET PO (08:38)
[2022-06-06] MEDS: LORazepam 1 MG TABLET PO ×3 (08:38→17:07)
--- NOTE | 2022-06-06 09:46 | HO.PSYCHPN ---
Subjective Subjective Reason For Visit: SI Diagnostics Vital Signs (24Hr): Vital Signs - 24 hr 06/05/22 18:00 06/05/22 22:50 06/06/22 08:20 Temperature 97.0 F 97.4 F Pulse Rate 90 80 87 Respiratory Rate 16 18 Blood Pressure 146/76 H 124/65 142/82 H Pulse Oximetry 99 100 Oxygen Delivery Method Room Air Room Air BMI result Body Mass Index 30.2 Labs Results: 05/15/22 10:32 05/16/22 08:44 Imaging Radiology Impressions: ITS Impressions Venous Duplex 05/22/22 21:36 IMPRESSION: No DVT demonstrated in the left lower extremity. Brain MRI 05/26/22 13:18 IMPRESSION: There are scattered nonspecific signal changes primarily involving the periventricular white matter. There is a single focus of T2 FLAIR signal hyperintensity within the left nick with associated ill-defined enhancement on postcontrast imaging. This finding could represent a small developmental venous anomaly or capillary telangiectasia. The possibility of active demyelination in the setting of suspected demyelinating disease cannot be definitively excluded but is felt to be less likely based on the distribution of chronic white matter disease. A follow-up brain MRI without and with contrast can be obtained at 6 months to assess the stability of this finding. Otherwise no abnormal enhancement visualized elsewhere within the [id number] of this examination. No evidence of acute territorial infarct or hemorrhage. Foot X-Ray 06/02/22 12:49 IMPRESSION: Right foot: *Partial visualization of marked osteoarthritis of the tibiotalar joint. *Partial visualization of an internal fixation screw within the distal fibula. *No acute abnormalities identified. Left foot: *Chronic posttraumatic deformity of the base of the fifth metatarsal. *No acute abnormalities identified. *Moderate plantar calcaneal enthesophyte which may represent the sequela of chronic plantar fasciitis. Foot X-Ray 06/02/22 12:49 IMPRESSION: Right foot: *Partial visualization of marked osteoarthritis of the tibiotalar joint. *Partial visualization of an internal fixation screw within the distal fibula. *No acute abnormalities identified. Left foot: *Chronic posttraumatic deformity of the base of the fifth metatarsal. *No acute abnormalities identified. *Moderate plantar calcaneal enthesophyte which may represent the sequela of chronic plantar fasciitis. Medications Medications Current Medications Acetaminophen (Acetaminophen 325 Mg Tablet) 650 mg PO Q6H PRN PRN Reason: Headache/Pain Mild Scale (1-3) Last Admin: 05/19/22 06:21 Dose: 650 mg Al Hydroxide/Mg Hydroxide (Magnesium Hydrox/Alum Hydrox 30 Ml Oral.Susp) 30 ml PO Q6H PRN PRN Reason: Heartburn/Nausea Aspirin (Aspirin Enteric Coated 81 Mg Tablet.) 81 mg PO DAILY [facility] Last Admin: 06/06/22 08:25 Dose: 81 mg Atorvastatin Calcium (Atorvastatin Calcium 80 Mg Tablet) 80 mg PO DAILY [facility] Last Admin: 06/06/22 08:22 Dose: 80 mg Bupropion HCl (Bupropion Hcl Xl 300 Mg Tab.Er.24h) 300 mg PO DAILY [facility] Last Admin: 06/06/22 08:24 Dose: 300 mg Carvedilol (Carvedilol 12.5 Mg Tablet) 12.5 mg PO BID [facility] Last Admin: 06/06/22 08:23 Dose: 12.5 mg Clopidogrel Bisulfate (Clopidogrel Bisulfate 75 Mg Tablet) 75 mg PO DAILY [facility] Last Admin: 06/06/22 08:24 Dose: 75 mg Cyclobenzaprine HCl (Cyclobenzaprine Hcl 10 Mg Tablet) 10 mg PO Q6H PRN PRN Reason: Muscle Spasm Last Admin: 06/06/22 08:24 Dose: 10 mg Duloxetine HCl (Duloxetine Hcl 60 Mg Capsule.) 60 mg PO DAILY [facility] Last Admin: 06/06/22 08:25 Dose: 60 mg Fludrocortisone Acetate (Fludrocortisone Acetate 0.1 Mg Tablet) 0.1 mg PO DAILY [facility] Last Admin: 06/06/22 08:21 Dose: 0.1 mg Gabapentin (Gabapentin 300 Mg Capsule) 600 mg PO BID@0630,1500 [facility] Last Admin: 06/06/22 06:34 Dose: 600 mg Gabapentin (Gabapentin 400 Mg Capsule) 400 mg PO BID@1100,2100 [facility] Last Admin: 06/05/22 22:53 Dose: 400 mg Hydrocortisone (Hydrocortisone 1 % Ointment 28.35 Gm Tube) 1 appl TOPICAL BID PRN; Protocol PRN Reason: left hand Last Admin: 05/27/22 09:27 Dose: 1 appl Ibuprofen (Ibuprofen 800 Mg Tablet) 800 mg PO Q8H PRN PRN Reason: Pain, Moderate (Pain Scale 4-6 Last Admin: 06/06/22 08:22 Dose: 800 mg Lactic Acid (Ammonium Lactate 12 % Cream 140 Gm Tube) 1 appl TOPICAL BID PRN; Protocol PRN Reason: Dry Skin Last Admin: 05/31/22 08:41 Dose: 1 appl Lorazepam (Lorazepam 1 Mg Tablet) 1 mg PO Q4H PRN PRN Reason: Anxiety Last Admin: 06/06/22 08:38 Dose: 1 mg Magnesium Hydroxide (Milk Of Magnesia 30 Ml Oral.Susp) 30 ml PO DAILY PRN PRN Reason: Constipation Magnesium Oxide (Magnesium Oxide 400 Mg Tablet) 400 mg PO DAILY [facility] Last Admin: 06/06/22 08:38 Dose: 400 mg Midodrine (Midodrine Hcl 5 Mg Tablet) 5 mg PO TID@0900,1300,1800 [facility] Last Admin: 06/06/22 08:37 Dose: 5 mg Multi-Ingred Cream/Lotion/Oil/Oint (Mineral Oil/Petrolatum,White 106 Gm Tube) 1 appl TOPICAL BID CHE; Protocol Last Admin: 06/06/22 08:25 Dose: Not Given Multivitamins/Vitamin C (Multivitamin Tablet) 1 tab PO DAILY [facility] Last Admin: 06/06/22 08:24 Dose: 1 tab Nicotine (Nicotine 21 Mg Patch.Td24) 21 mg TRANSDERMA DAILY PRN PRN Reason: nicotine cravings Omeprazole (Omeprazole 20 Mg Capsule.Dr) 20 mg PO DAILY@0630 [facility] Last Admin: 06/06/22 06:34 Dose: 20 mg Pregabalin (Pregabalin 75 Mg Capsule) 75 mg PO TID [facility] Last Admin: 06/06/22 08:21 Dose: 75 mg Trazodone HCl (Trazodone Hcl 50 Mg Tablet) 50 mg PO BEDTIME PRN PRN Reason: Insomnia Last Admin: 06/05/22 00:28 Dose: 50 mg Trolamine Salicylate (Trolamine Salicylate 10 % Cream 141 Gm Tube) 1 appl TOPICAL QID PRN; Protocol PRN Reason: low back pain Last Admin: 06/03/22 15:47 Dose: 1 appl Allergies Allergies Allergy/AdvReac Type Severity Reaction Status Date / Time aspirin [ASPIRIN] Allergy Unknown SENSITIVITY Verified 04/30/22 13:04 lisinopril Allergy Unknown falls, Verified 04/30/22 13:04 muscle weakness Assessment & Plan Assessment & Plan (1) Borderline personality disorder: Status: Acute Code(s): F60.3 - Borderline personality disorder Plan 05/16: continue outpt meds for now. cardiology consult for mgmt of BP and opinion on QTc mgmt. OT eval for ambulation and need for senior living. build rapport, consider mood/anxiety medication as indicated. Patient educated on: diagnosis and substance abuse 05/17: per OT: She should continue using the walker. Her biggest issue is her orthostatic hypotension and frequently syncopizes (not in past 2 weeks though). As for her ability to live independently, yes, from a purely musculoskeletal standpoint. per Cardiology: 1) reduce midodrine to 5 mg TID, give 30 min prior to meals. 2) reduce carvedilol to 12.5 BID. 3) continue fludrocortisone as is. 4) BP Q3H WA. 5) hold midodrine for SBP > 150 or DBP > 95. 6) hold fludrocortisone if SBP > 150. 7) hold carvedilol if SBP < 110. 8) replete Mg to above 2. 9) replete K to above 4. 10) QTc up to 500 ms is acceptable for now. psych: stable presentation. 05/18: BP improved. gabapentin increased to 900 QID as of today.? otherwise continue current mgmt. 05/19: continue tx. 05/20: No changes to current treatment plan.? Will adjust Advil to 800 mg as needed up to 3 times per day consistent with patient's home regimen 05/21: No changes to current treatment plan. 05/22: wrist brace for carpal tunnel complaints. ativan 1 mg daily PRN for severe anxiety, only while hospitalized. very wordy today, seemingly evasive about discussing substantive issues regarding her Tx here and dispo planning. 05/23: extremely denigrating and accusatory, asserting staff enjoy her suffering and are intentionally doing things to make her suffer. demanding medical attention for myriad complaints, historical and chronic as well as more recent. alleging withholding of care. demanding to have a wheelchair, states she cannot ambulate due to foot pain. PT eval for wheelchair, T/C med consult for prominent and acute complaints. 05/24: declines mtg with MD, saying she is not in the mood. interdisciplinary mtg held re pt's care, plan to pursue more collateral, check [facility], refer for DMH services made. 05/25: quite angry/pressured with litany of complaints today. [facility] . placed on 1:1 for SIB. 05/26: periods of collaboration and calm today, interspersed with the recent aggressiveness and criticality. OBS decreased to Q5 min checks at pt request. she reports she will begin to take her medications again in response. denying any SIBI, states she will refrain from engaging in such. 05/28/22 Continue current regime, as she reports she believes it is beginning to work. Discussion of feeling hurt by some team interactions with her-continue to educate re process of therapy and rationale for questions she is asked. 05/29: denies banging her head over weekend, yet RN note from 05/28 states she did so. more pleasant today, focussed on scapegoating particular staff member rather than the class as a whole. paranoid unnamed staff are messing with her, however, such as my messing up her meal orders, as apparently happened twice over the weekend. divulged trauma-related nightmares and insomnia, considering prazosin (cardiology consulted). 05/30: calm, cooperative, not aggressive or critical today. agrees to trial of wellbutrin as adjunctive anti-depressant. 05/31: calm, cooperative. increasingly future-oriented and collaborative. will submit DM application. no side effects from medications. continue current mgmt, increase wellbutrin after 2 more days. 06/01: pleasant, even cheery. no complaints. one more day of wellbutrin 150, then increase to 300. revisit possibility of prazosin for nightmares and insomnia in PTSD. 06/02: continues pleasant and cheery. asking for gabapentin taper and lyrica titration. wellbutrin to be increased to 300 mg as of tomorrow. otherwise continue current mgmt. 06/03: No med changes, pt declines to meet with T/W, denies concerns 06/04: No med changes, continue with gabapentin taper and lyrica titration 06/05: No med changes, continue with gabapentin taper and lyrica titration Time Spent With Patient Time: Total time managing care of this patient today ____ minutes.
[2022-06-06] MEDS: Gabapentin 400 MG CAPSULE PO (11:39)
[2022-06-06 12:38] VITALS: BP 150/85; PULSE 82
[2022-06-06] MEDS: Pregabalin 150 MG CAPSULE PO ×2 (15:06→20:36)
[2022-06-06 17:04] VITALS: BP 167/85; PULSE 86
--- NOTE | 2022-06-06 17:41 | P.PNPSI_ITS ---
Subjective Subjective Date of Service: 06/06/22 Reason For Visit: SI Interim History: calm, cooperative. found in milieu speaking with AVELINO olivares; interview moved to interview room. some time spent discussing pt's self-harm over the w/e and some triggers of her trauma Hx from earlier in the admission. discussion had re peripheral neuropathy Tx, pt agrees to switch completely from gabapentin to lyrica, the schedule of which is discussed and ordered. Mental Status Exam Mental Status Exam Narrative: cooperative.? no PMA/PMR.? speech nml rate, loudness, amount, latency.? thoughts linear and logical, not aggressive or critical today.? affect full range, normo- intense, non-labile.? no SI/HI/AVH expressed.? bandage on left volar forearm reportedly covering superficial laceration wound. Diagnostics Vital Signs (24Hr): Vital Signs - 24 hr 06/05/22 18:00 06/05/22 22:50 06/06/22 08:20 Temperature 97.0 F 97.4 F Pulse Rate 90 80 87 Respiratory Rate 16 18 Blood Pressure 146/76 H 124/65 142/82 H Pulse Oximetry 99 100 Oxygen Delivery Method Room Air Room Air 06/06/22 12:38 06/06/22 17:04 Temperature Pulse Rate 82 86 Respiratory Rate Blood Pressure 150/85 H 167/85 H Pulse Oximetry Oxygen Delivery Method BMI result Body Mass Index 30.2 Labs Results: 05/15/22 10:32 05/16/22 08:44 Imaging Radiology Impressions: ITS Impressions Venous Duplex 05/22/22 21:36 IMPRESSION: No DVT demonstrated in the left lower extremity. Brain MRI 05/26/22 13:18 IMPRESSION: There are scattered nonspecific signal changes primarily involving the periventricular white matter. There is a single focus of T2 FLAIR signal hyperintensity within the left nick with associated ill-defined enhancement on postcontrast imaging. This finding could represent a small developmental venous anomaly or capillary telangiectasia. The possibility of active demyelination in the setting of suspected demyelinating disease cannot be definitively excluded but is felt to be less likely based on the distribution of chronic white matter disease. A follow-up brain MRI without and with contrast can be obtained at 6 months to assess the stability of this finding. Otherwise no abnormal enhancement visualized elsewhere within the [id number] of this examination. No evidence of acute territorial infarct or hemorrhage. Foot X-Ray 06/02/22 12:49 IMPRESSION: Right foot: *Partial visualization of marked osteoarthritis of the tibiotalar joint. *Partial visualization of an internal fixation screw within the distal fibula. *No acute abnormalities identified. Left foot: *Chronic posttraumatic deformity of the base of the fifth metatarsal. *No acute abnormalities identified. *Moderate plantar calcaneal enthesophyte which may represent the sequela of chronic plantar fasciitis. Foot X-Ray 06/02/22 12:49 IMPRESSION: Right foot: *Partial visualization of marked osteoarthritis of the tibiotalar joint. *Partial visualization of an internal fixation screw within the distal fibula. *No acute abnormalities identified. Left foot: *Chronic posttraumatic deformity of the base of the fifth metatarsal. *No acute abnormalities identified. *Moderate plantar calcaneal enthesophyte which may represent the sequela of chronic plantar fasciitis. Medications Medications Current Medications Acetaminophen (Acetaminophen 325 Mg Tablet) 650 mg PO Q6H PRN PRN Reason: Headache/Pain Mild Scale (1-3) Last Admin: 05/19/22 06:21 Dose: 650 mg Al Hydroxide/Mg Hydroxide (Magnesium Hydrox/Alum Hydrox 30 Ml Oral.Susp) 30 ml PO Q6H PRN PRN Reason: Heartburn/Nausea Aspirin (Aspirin Enteric Coated 81 Mg Tablet.) 81 mg PO DAILY [facility] Last Admin: 06/06/22 08:25 Dose: 81 mg Atorvastatin Calcium (Atorvastatin Calcium 80 Mg Tablet) 80 mg PO DAILY [facility] Last Admin: 06/06/22 08:22 Dose: 80 mg Bupropion HCl (Bupropion Hcl Xl 300 Mg Tab.Er.24h) 300 mg PO DAILY [facility] Last Admin: 06/06/22 08:24 Dose: 300 mg Carvedilol (Carvedilol 12.5 Mg Tablet) 12.5 mg PO BID [facility] Last Admin: 06/06/22 08:23 Dose: 12.5 mg Clopidogrel Bisulfate (Clopidogrel Bisulfate 75 Mg Tablet) 75 mg PO DAILY [facility] Last Admin: 06/06/22 08:24 Dose: 75 mg Cyclobenzaprine HCl (Cyclobenzaprine Hcl 10 Mg Tablet) 10 mg PO Q6H PRN PRN Reason: Muscle Spasm Last Admin: 06/06/22 15:06 Dose: 10 mg Duloxetine HCl (Duloxetine Hcl 60 Mg Capsule.) 60 mg PO DAILY [facility] Last Admin: 06/06/22 08:25 Dose: 60 mg Fludrocortisone Acetate (Fludrocortisone Acetate 0.1 Mg Tablet) 0.1 mg PO DAILY [facility] Last Admin: 06/06/22 08:21 Dose: 0.1 mg Hydrocortisone (Hydrocortisone 1 % Ointment 28.35 Gm Tube) 1 appl TOPICAL BID PRN; Protocol PRN Reason: left hand Last Admin: 05/27/22 09:27 Dose: 1 appl Ibuprofen (Ibuprofen 800 Mg Tablet) 800 mg PO Q8H PRN PRN Reason: Pain, Moderate (Pain Scale 4-6 Last Admin: 06/06/22 16:58 Dose: 800 mg Lactic Acid (Ammonium Lactate 12 % Cream 140 Gm Tube) 1 appl TOPICAL BID PRN; Protocol PRN Reason: Dry Skin Last Admin: 05/31/22 08:41 Dose: 1 appl Lorazepam (Lorazepam 1 Mg Tablet) 1 mg PO Q4H PRN PRN Reason: Anxiety Last Admin: 06/06/22 17:07 Dose: 1 mg Magnesium Hydroxide (Milk Of Magnesia 30 Ml Oral.Susp) 30 ml PO DAILY PRN PRN Reason: Constipation Magnesium Oxide (Magnesium Oxide 400 Mg Tablet) 400 mg PO DAILY [facility] Last Admin: 06/06/22 08:38 Dose: 400 mg Midodrine (Midodrine Hcl 5 Mg Tablet) 5 mg PO TID@0900,1300,1800 [facility] Last Admin: 06/06/22 17:04 Dose: Not Given Multi-Ingred Cream/Lotion/Oil/Oint (Mineral Oil/Petrolatum,White 106 Gm Tube) 1 appl TOPICAL BID [facility]; Protocol Last Admin: 06/06/22 08:25 Dose: Not Given Multivitamins/Vitamin C (Multivitamin Tablet) 1 tab PO DAILY [facility] Last Admin: 06/06/22 08:24 Dose: 1 tab Nicotine (Nicotine 21 Mg Patch.Td24) 21 mg TRANSDERMA DAILY PRN PRN Reason: nicotine cravings Omeprazole (Omeprazole 20 Mg Capsule.Dr) 20 mg PO DAILY@0630 [facility] Last Admin: 06/06/22 06:34 Dose: 20 mg Pregabalin (Pregabalin 150 Mg Capsule) 150 mg PO TID@0630,1230,2030 [facility] Last Admin: 06/06/22 15:06 Dose: 150 mg Trazodone HCl (Trazodone Hcl 50 Mg Tablet) 50 mg PO BEDTIME PRN PRN Reason: Insomnia Last Admin: 06/05/22 00:28 Dose: 50 mg Trolamine Salicylate (Trolamine Salicylate 10 % Cream 141 Gm Tube) 1 appl TOPICAL QID PRN; Protocol PRN Reason: low back pain Last Admin: 06/03/22 15:47 Dose: 1 appl Allergies Allergies Allergy/AdvReac Type Severity Reaction Status Date / Time aspirin [ASPIRIN] Allergy Unknown SENSITIVITY Verified 04/30/22 13:04 lisinopril Allergy Unknown falls, Verified 04/30/22 13:04 muscle weakness Assessment & Plan Assessment & Plan (1) Borderline personality disorder: Status: Acute Code(s): F60.3 - Borderline personality disorder Plan 05/16: continue outpt meds for now. cardiology consult for mgmt of BP and opinion on QTc mgmt. OT eval for ambulation and need for snf. build rapport, consider mood/anxiety medication as indicated. Patient educated on: diagnosis and substance abuse 05/17: per OT: She should continue using the walker. Her biggest issue is her orthostatic hypotension and frequently syncopizes (not in past 2 weeks though). As for her ability to live independently, yes, from a purely musculoskeletal standpoint. per Cardiology: 1) reduce midodrine to 5 mg TID, give 30 min prior to meals. 2) reduce carvedilol to 12.5 BID. 3) continue fludrocortisone as is. 4) BP Q3H WA. 5) hold midodrine for SBP > 150 or DBP > 95. 6) hold fludrocortisone if SBP > 150. 7) hold carvedilol if SBP < 110. 8) replete Mg to above 2. 9) replete K to above 4. 10) QTc up to 500 ms is acceptable for now. psych: stable presentation. 05/18: BP improved. gabapentin increased to 900 QID as of today.? otherwise continue current mgmt. 05/19: continue tx. 05/20: No changes to current treatment plan.? Will adjust Advil to 800 mg as needed up to 3 times per day consistent with patient's home regimen 05/21: No changes to current treatment plan. 05/22: wrist brace for carpal tunnel complaints.? ativan 1 mg daily PRN for severe anxiety, only while hospitalized.? very wordy today, seemingly evasive about discussing substantive issues regarding her Tx here and dispo planning. 05/23: extremely denigrating and accusatory, asserting staff enjoy her suffering and are intentionally doing things to make her suffer.? demanding medical attention for myriad complaints, historical and chronic as well as more recent.? alleging withholding of care.? demanding to have a wheelchair, states she cannot ambulate due to foot pain.? PT eval for wheelchair, T/C med consult for prominent and acute complaints. 05/24: declines mtg with MD, saying she is not in the mood.? interdisciplinary mtg held re pt's care, plan to pursue more collateral, check [facility], refer for DMH services made. 05/25: quite angry/pressured with litany of complaints today.? [facility] .? placed on 1:1 for SIB. 05/26: periods of collaboration and calm today, interspersed with the recent aggressiveness and criticality.? OBS decreased to Q5 min checks at pt request.? she reports she will begin to take her medications again in response.? denying any SIBI, states she will refrain from engaging in such. 05/28/22 Continue current regime, as she reports she believes it is beginning to work. Discussion of feeling hurt by some team interactions with her-continue to educate re process of therapy and rationale for questions she is asked. 05/29: denies banging her head over weekend, yet RN note from 05/28 states she did so.? more pleasant today, focussed on scapegoating particular staff member rather than the class as a whole.? paranoid unnamed staff are messing with her, however, such as my messing up her meal orders, as apparently happened twice ov er the weekend.? divulged trauma-related nightmares and insomnia, considering prazosin (cardiology consulted). 05/30: calm, cooperative, not aggressive or critical today.? agrees to trial of wellbut rin as adjunctive anti-depressant. 05/31: calm, cooperative.? increasingly future-oriented and collaborative.? will submit DMH application.? no side effects from medications.? continue current mgmt, increase wellbutrin after 2 more days. 06/01: pleasant, even cheery.? no complaints.? one more day of wellbutrin 150, then increase to 300.? revisit possibility of prazosin for nightmares and insomnia in PTSD. 06/02: continues pleasant and cheery.? asking for gabapentin taper and lyrica titrati on.? wellbutrin to be increased to 300 mg as of tomorrow.? otherwise continue current mgmt. 06/03: No med changes, pt declines to meet with T/W, denies concerns 06/04: No med changes, continue with gabapentin taper and lyrica titration 06/05: No med changes, continue with gabapentin taper and lyrica titration 06/06: DC gabapentin, double lyrica to 150 TID. Reason for contiued inpatient stay Substantial Risk for: harm to self, inability to function and rapid decompensation Time Spent With Patient Time: Total time managing care of this patient today __25__ minutes.
[2022-06-06 20:35] VITALS: BP 143/83; PULSE 79; RESP 16; TEMP 36.1; O2SAT 97
[2022-06-06] MEDS: traZODone HCL 50 MG TABLET PO (22:35)
[2022-06-07] MEDS: Pregabalin 150 MG CAPSULE PO ×3 (06:45→21:02)
[2022-06-07] MEDS: Omeprazole 20 MG CAPSULE.DR PO (06:45)
[2022-06-07] MEDS: Cyclobenzaprine HCl 10 MG TABLET PO ×2 (06:52→21:02)
[2022-06-07 08:37] VITALS: BP 149/86; PULSE 91; RESP 18; TEMP 36.8; O2SAT 97
[2022-06-07] MEDS: DULoxetine HCl 60 MG CAPSULE.DR PO (08:39)
[2022-06-07] MEDS: Aspirin Enteric Coated 81 MG TABLET.DR PO (08:39)
[2022-06-07] MEDS: carvediloL 12.5 MG TABLET PO (08:39)
[2022-06-07] MEDS: Fludrocortisone Acetate 0.1 MG TABLET PO (08:40)
[2022-06-07] MEDS: Clopidogrel Bisulfate 75 MG TABLET PO (08:40)
[2022-06-07] MEDS: Magnesium Oxide 400 MG TABLET PO (08:40)
[2022-06-07] MEDS: Atorvastatin Calcium 80 MG TABLET PO (08:40)
[2022-06-07] MEDS: Multivitamin TABLET 1 TAB PO (08:40)
[2022-06-07] MEDS: buPROPion HCl XL 300 MG TAB.ER.24H PO (08:40)
[2022-06-07] MEDS: Ibuprofen 800 MG TABLET PO ×2 (09:09→21:05)
[2022-06-07] MEDS: Midodrine HCl 5 MG TABLET PO ×2 (09:13→12:35)
[2022-06-07] MEDS: LORazepam 1 MG TABLET PO ×2 (10:31→15:27)
[2022-06-07 12:39] VITALS: BP 143/84; PULSE 82; RESP 18; TEMP 36.3; O2SAT 99
--- NOTE | 2022-06-07 14:03 | HO.PSYCHPN ---
Subjective Subjective Date of Service: 06/07/22 Reason For Visit: SI Interim History: seen as she rested in her bed. calm, cooperative. reports feet feeling better than prior, believes lyrica working. no complaints or requests otherwise. broaches discharge, saying [facility] will be asked to come in and see her to see what services they might offer. per staff, sleeping well. anx 9, dep 10. endorsing SI, denies plan. denies AVH. Mental Status Exam Mental Status Exam Narrative: cooperative.? no PMA/PMR.? speech nml rate, loudness, amount, latency.? thoughts linear and logical, not aggressive or critical today.? affect full range, normo-intense, non-labile.? no SI/HI/AVH expressed.? bandage on left volar forearm reportedly covering superficial laceration wound. Diagnostics Vital Signs (24Hr): Vital Signs - 24 hr 06/06/22 17:04 06/06/22 20:35 06/07/22 08:37 Temperature 97 F 98.3 F Pulse Rate 86 79 91 Respiratory Rate 16 18 Blood Pressure 167/85 H 143/83 H 149/86 H Pulse Oximetry 97 97 Oxygen Delivery Method Room Air Room Air 06/07/22 12:39 Temperature 97.4 F Pulse Rate 82 Respiratory Rate 18 Blood Pressure 143/84 H Pulse Oximetry 99 Oxygen Delivery Method Room Air BMI result Body Mass Index 30.2 Labs Results: 05/15/22 10:32 05/16/22 08:44 Imaging Radiology Impressions: ITS Impressions Venous Duplex 05/22/22 21:36 IMPRESSION: No DVT demonstrated in the left lower extremity. Brain MRI 05/26/22 13:18 IMPRESSION: There are scattered nonspecific signal changes primarily involving the periventricular white matter. There is a single focus of T2 FLAIR signal hyperintensity within the left nick with associated ill-defined enhancement on postcontrast imaging. This finding could represent a small developmental venous anomaly or capillary telangiectasia. The possibility of active demyelination in the setting of suspected demyelinating disease cannot be definitively excluded but is felt to be less likely based on the distribution of chronic white matter disease. A follow-up brain MRI without and with contrast can be obtained at 6 months to assess the stability of this finding. Otherwise no abnormal enhancement visualized elsewhere within the [id number] of this examination. No evidence of acute territorial infarct or hemorrhage. Foot X-Ray 06/02/22 12:49 IMPRESSION: Right foot: *Partial visualization of marked osteoarthritis of the tibiotalar joint. *Partial visualization of an internal fixation screw within the distal fibula. *No acute abnormalities identified. Left foot: *Chronic posttraumatic deformity of the base of the fifth metatarsal. *No acute abnormalities identified. *Moderate plantar calcaneal enthesophyte which may represent the sequela of chronic plantar fasciitis. Foot X-Ray 06/02/22 12:49 IMPRESSION: Right foot: *Partial visualization of marked osteoarthritis of the tibiotalar joint. *Partial visualization of an internal fixation screw within the distal fibula. *No acute abnormalities identified. Left foot: *Chronic posttraumatic deformity of the base of the fifth metatarsal. *No acute abnormalities identified. *Moderate plantar calcaneal enthesophyte which may represent the sequela of chronic plantar fasciitis. Medications Medications Current Medications Acetaminophen (Acetaminophen 325 Mg Tablet) 650 mg PO Q6H PRN PRN Reason: Headache/Pain Mild Scale (1-3) Last Admin: 05/19/22 06:21 Dose: 650 mg Al Hydroxide/Mg Hydroxide (Magnesium Hydrox/Alum Hydrox 30 Ml Oral.Susp) 30 ml PO Q6H PRN PRN Reason: Heartburn/Nausea Aspirin (Aspirin Enteric Coated 81 Mg Tablet.) 81 mg PO DAILY [facility] Last Admin: 06/07/22 08:39 Dose: 81 mg Atorvastatin Calcium (Atorvastatin Calcium 80 Mg Tablet) 80 mg PO DAILY [facility] Last Admin: 06/07/22 08:40 Dose: 80 mg Bupropion HCl (Bupropion Hcl Xl 300 Mg Tab.Er.24h) 300 mg PO DAILY [facility] Last Admin: 06/07/22 08:40 Dose: 300 mg Carvedilol (Carvedilol 12.5 Mg Tablet) 12.5 mg PO BID [facility] Last Admin: 06/07/22 08:39 Dose: 12.5 mg Clopidogrel Bisulfate (Clopidogrel Bisulfate 75 Mg Tablet) 75 mg PO DAILY [facility] Last Admin: 06/07/22 08:40 Dose: 75 mg Cyclobenzaprine HCl (Cyclobenzaprine Hcl 10 Mg Tablet) 10 mg PO Q6H PRN PRN Reason: Muscle Spasm Last Admin: 06/07/22 06:52 Dose: 10 mg Duloxetine HCl (Duloxetine Hcl 60 Mg Capsule.) 60 mg PO DAILY [facility] Last Admin: 06/07/22 08:39 Dose: 60 mg Fludrocortisone Acetate (Fludrocortisone Acetate 0.1 Mg Tablet) 0.1 mg PO DAILY [facility] Last Admin: 06/07/22 08:40 Dose: 0.1 mg Hydrocortisone (Hydrocortisone 1 % Ointment 28.35 Gm Tube) 1 appl TOPICAL BID PRN; Protocol PRN Reason: left hand Last Admin: 05/27/22 09:27 Dose: 1 appl Ibuprofen (Ibuprofen 800 Mg Tablet) 800 mg PO Q8H PRN PRN Reason: Pain, Moderate (Pain Scale 4-6 Last Admin: 06/07/22 09:09 Dose: 800 mg Lactic Acid (Ammonium Lactate 12 % Cream 140 Gm Tube) 1 appl TOPICAL BID PRN; Protocol PRN Reason: Dry Skin Last Admin: 05/31/22 08:41 Dose: 1 appl Lorazepam (Lorazepam 1 Mg Tablet) 1 mg PO Q4H PRN PRN Reason: Anxiety Last Admin: 06/07/22 10:31 Dose: 1 mg Magnesium Hydroxide (Milk Of Magnesia 30 Ml Oral.Susp) 30 ml PO DAILY PRN PRN Reason: Constipation Magnesium Oxide (Magnesium Oxide 400 Mg Tablet) 400 mg PO DAILY [facility] Last Admin: 06/07/22 08:40 Dose: 400 mg Midodrine (Midodrine Hcl 5 Mg Tablet) 5 mg PO TID@0900,1300,1800 [facility] Last Admin: 06/07/22 12:35 Dose: 5 mg Multi-Ingred Cream/Lotion/Oil/Oint (Mineral Oil/Petrolatum,White 106 Gm Tube) 1 appl TOPICAL BID [facility]; Protocol Last Admin: 06/07/22 09:14 Dose: Not Given Multivitamins/Vitamin C (Multivitamin Tablet) 1 tab PO DAILY [facility] Last Admin: 06/07/22 08:40 Dose: 1 tab Nicotine (Nicotine 21 Mg Patch.Td24) 21 mg TRANSDERMA DAILY PRN PRN Reason: nicotine cravings Omeprazole (Omeprazole 20 Mg Capsule.Dr) 20 mg PO DAILY@0630 [facility] Last Admin: 06/07/22 06:45 Dose: 20 mg Pregabalin (Pregabalin 150 Mg Capsule) 150 mg PO TID@0630,1230,2030 [facility] Last Admin: 06/07/22 12:35 Dose: 150 mg Trazodone HCl (Trazodone Hcl 50 Mg Tablet) 50 mg PO BEDTIME PRN PRN Reason: Insomnia Last Admin: 06/06/22 22:35 Dose: 50 mg Trolamine Salicylate (Trolamine Salicylate 10 % Cream 141 Gm Tube) 1 appl TOPICAL QID PRN; Protocol PRN Reason: low back pain Last Admin: 06/03/22 15:47 Dose: 1 appl Allergies Allergies Allergy/AdvReac Type Severity Reaction Status Date / Time aspirin [ASPIRIN] Allergy Unknown SENSITIVITY Verified 04/30/22 13:04 lisinopril Allergy Unknown falls, Verified 04/30/22 13:04 muscle weakness Assessment & Plan Assessment & Plan (1) Borderline personality disorder: Status: Acute Code(s): F60.3 - Borderline personality disorder Plan 05/16: continue outpt meds for now. cardiology consult for mgmt of BP and opinion on QTc mgmt. OT eval for ambulation and need for [facility]. build rapport, consider mood/anxiety medication as indicated. Patient educated on: diagnosis and substance abuse 05/17: per OT: She should continue using the walker. Her biggest issue is her orthostatic hypotension and frequently syncopizes (not in past 2 weeks though). As for her ability to live independently, yes, from a purely musculoskeletal standpoint. per Cardiology: 1) reduce midodrine to 5 mg TID, give 30 min prior to meals. 2) reduce carvedilol to 12.5 BID. 3) continue fludrocortisone as is. 4) BP Q3H WA. 5) hold midodrine for SBP > 150 or DBP > 95. 6) hold fludrocortisone if SBP > 150. 7) hold carvedilol if SBP < 110. 8) replete Mg to above 2. 9) replete K to above 4. 10) QTc up to 500 ms is acceptable for now. psych: stable presentation. 05/18: BP improved. gabapentin increased to 900 QID as of today.? otherwise continue current mgmt. 05/19: continue tx. 05/20: No changes to current treatment plan.? Will adjust Advil to 800 mg as needed up to 3 times per day consistent with patient's home regimen 05/21: No changes to current treatment plan. 05/22: wrist brace for carpal tunnel complaints.? ativan 1 mg daily PRN for severe anxiety, only while hospitalized.? very wordy today, seemingly evasive about discussing substantive issues regarding her Tx here and dispo planning. 05/23: extremely denigrating and accusatory, asserting staff enjoy her suffering and are intentionally doing things to make her suffer.? demanding medical attention for myriad complaints, historical and chronic as well as more recent.? alleging withholding of care.? demanding to have a wheelchair, states she cannot ambulate due to foot pain.? PT eval for wheelchair, T/C med consult for prominent and acute complaints. 05/24: declines mtg with MD, saying she is not in the mood.? interdisciplinary mtg held re pt's care, plan to pursue more collateral, check [facility], refer for [facility] services made. 05/25: quite angry/pressured with litany of complaints today.? [facility] .? placed on 1:1 for SIB. 05/26: periods of collaboration and calm today, interspersed with the recent aggressiveness and criticality.? OBS decreased to Q5 min checks at pt request.? she reports she will begin to take her medications again in response.? denying any SIBI, states she will refrain from engaging in such. 05/28/22 Continue current regime, as she reports she believes it is beginning to work. Discussion of feeling hurt by some team interactions with her-continue to educate re process of therapy and rationale for questions she is asked. 05/29: denies banging her head over weekend, yet RN note from 05/28 states she did so.? more pleasant today, focussed on scapegoating particular staff member rather than the class as a whole.? paranoid unnamed staff are messing with her, however, such as my messing up her meal orders, as apparently happened twice over the weekend.? divulged trauma-related nightmares and insomnia, considering prazosin (cardiology consulted). 05/30: calm, cooperative, not aggressive or critical today.? agrees to trial of wellbutrin as adjunctive anti-depressant. 05/31: calm, cooperative.? increasingly future-oriented and collaborative.? will submit [facility] application.? no side effects from medications.? continue current mgmt, increase wellbutrin after 2 more days. 06/01: pleasant, even cheery.? no complaints.? one more day of wellbutrin 150, then increase to 300.? revisit possibility of prazosin for nightmares and insomnia in PTSD. 06/02: continues pleasant and cheery.? asking for gabapentin taper and lyrica titration.? wellbutrin to be increased to 300 mg as of tomorrow.? otherwise continue current mgmt. 06/03: No med changes, pt declines to meet with T/W, denies concerns 06/04: No med changes, continue with gabapentin taper and lyrica titration 06/05: No med changes, continue with gabapentin taper and lyrica titration 06/06: DC gabapentin, double lyrica to 150 TID. 06/07: no change in presentation. not aggressive or critical. neuropathy improved with lyrica. [facility] contacted and encouraged to expedite case. Reason for contiued inpatient stay Substantial Risk for: harm to self, inability to function and rapid decompensation Time Spent With Patient Time: Total time managing care of this patient today _25___ minutes.
[2022-06-07 15:59] VITALS: BP 154/82; PULSE 95; RESP 20; TEMP 36.3; O2SAT 98
[2022-06-07 18:00] VITALS: BP 131/89; PULSE 84; RESP 18; TEMP 36.3; O2SAT 99
[2022-06-07 20:52] VITALS: BP 100/66; PULSE 82; RESP 18; O2SAT 98
[2022-06-07] MEDS: Mineral Oil/Petrolatum,White 106 GM Tube 1 APPL TOPICAL (21:07)
[2022-06-08] MEDS: traZODone HCL 50 MG TABLET PO (02:50)
[2022-06-08] MEDS: Omeprazole 20 MG CAPSULE.DR PO (06:53)
[2022-06-08] MEDS: Ibuprofen 800 MG TABLET PO ×2 (06:53→21:12)
[2022-06-08] MEDS: Pregabalin 150 MG CAPSULE PO ×3 (06:53→21:12)
[2022-06-08] MEDS: Cyclobenzaprine HCl 10 MG TABLET PO ×3 (06:55→22:11)
[2022-06-08] MEDS: Multivitamin TABLET 1 TAB PO (08:44)
[2022-06-08] MEDS: DULoxetine HCl 60 MG CAPSULE.DR PO (08:44)
[2022-06-08] MEDS: Aspirin Enteric Coated 81 MG TABLET.DR PO (08:44)
[2022-06-08] MEDS: Magnesium Oxide 400 MG TABLET PO (08:44)
[2022-06-08] MEDS: carvediloL 12.5 MG TABLET PO (08:44)
[2022-06-08] MEDS: buPROPion HCl XL 300 MG TAB.ER.24H PO (08:44)
[2022-06-08] MEDS: LORazepam 1 MG TABLET PO ×2 (08:45→13:37)
[2022-06-08] MEDS: Fludrocortisone Acetate 0.1 MG TABLET PO (08:45)
[2022-06-08] MEDS: Atorvastatin Calcium 80 MG TABLET PO (08:45)
[2022-06-08] MEDS: Clopidogrel Bisulfate 75 MG TABLET PO (08:45)
[2022-06-08] MEDS: Mineral Oil/Petrolatum,White 106 GM Tube 1 APPL TOPICAL (10:33)
[2022-06-08 12:19] VITALS: BP 132/87; PULSE 90; RESP 16; TEMP 36.7; O2SAT 99
[2022-06-08 13:30] VITALS: BP 156/89; PULSE 85
--- NOTE | 2022-06-08 16:15 | P.PNPSI_ITS ---
Subjective Subjective Date of Service: 06/08/22 Reason For Visit: SI Interim History: calm, cooperative. c/o roommate being disruptive in the night and preventing her from getting a good sleep. otherwise no complaints. does dwell on inspirational quote in group today inspiring her to get that thing done she's been procrastinating about - kill herself. some receptivity to MD's jesusi ghting her ambivalence on that subject - coming in for Tx, asking for medical attention, etc. per staff, 10, 10, yes i'm suicidal. isolative, withdrawn. not attending groups. pleasant on eves, in milieu, social. +SI, no intent here. appeared to have slept well, foot pain improved. Mental Status Exam Mental Status Exam Narrative: cooperative.? no PMA/PMR.? speech nml rate, loudness, amount, latency.? thoughts linear and logical, not aggressive or critical today.? affect full range, normo- intense, non-labile.? +SI with plan to jump form the roof or from an upper story window of [facility]. no HI/AVH expressed. Diagnostics Vital Signs (24Hr): Vital Signs - 24 hr 06/07/22 18:00 06/07/22 20:52 06/08/22 12:19 Temperature 97.4 F 98.1 F Pulse Rate 84 82 90 Respiratory Rate 18 18 16 Blood Pressure 131/89 100/66 132/87 Pulse Oximetry 99 98 99 Oxygen Delivery Method Room Air Room Air Room Air BMI result Body Mass Index 30.2 Labs Results: 05/15/22 10:32 05/16/22 08:44 Imaging Radiology Impressions: ITS Impressions Venous Duplex 05/22/22 21:36 IMPRESSION: No DVT demonstrated in the left lower extremity. Brain MRI 05/26/22 13:18 IMPRESSION: There are scattered nonspecific signal changes primarily involving the periventricular white matter. There is a single focus of T2 FLAIR signal hyperintensity within the left nick with associated ill-defined enhancement on postcontrast imaging. This finding could represent a small developmental venous anomaly or capillary telangiectasia. The possibility of active demyelination in the setting of suspected demyelinating disease cannot be definitively excluded but is felt to be less likely based on the distribution of chronic white matter disease. A follow-up brain MRI without and with contrast can be obtained at 6 months to assess the stability of this finding. Otherwise no abnormal enhancement visualized elsewhere within the [id number] of this examination. No evidence of acute territorial infarct or hemorrhage. Foot X-Ray 06/02/22 12:49 IMPRESSION: Right foot: *Partial visualization of marked osteoarthritis of the tibiotalar joint. *Partial visualization of an internal fixation screw within the distal fibula. *No acute abnormalities identified. Left foot: *Chronic posttraumatic deformity of the base of the fifth metatarsal. *No acute abnormalities identified. *Moderate plantar calcaneal enthesophyte which may represent the sequela of chronic plantar fasciitis. Foot X-Ray 06/02/22 12:49 IMPRESSION: Right foot: *Partial visualization of marked osteoarthritis of the tibiotalar joint. *Partial visualization of an internal fixation screw within the distal fibula. *No acute abnormalities identified. Left foot: *Chronic posttraumatic deformity of the base of the fifth metatarsal. *No acute abnormalities identified. *Moderate plantar calcaneal enthesophyte which may represent the sequela of chronic plantar fasciitis. Medications Medications Current Medications Acetaminophen (Acetaminophen 325 Mg Tablet) 650 mg PO Q6H PRN PRN Reason: Headache/Pain Mild Scale (1-3) Last Admin: 05/19/22 06:21 Dose: 650 mg Al Hydroxide/Mg Hydroxide (Magnesium Hydrox/Alum Hydrox 30 Ml Oral.Susp) 30 ml PO Q6H PRN PRN Reason: Heartburn/Nausea Aspirin (Aspirin Enteric Coated 81 Mg Tablet.Dr) 81 mg PO DAILY [facility] Last Admin: 06/08/22 08:44 Dose: 81 mg Atorvastatin Calcium (Atorvastatin Calcium 80 Mg Tablet) 80 mg PO DAILY [facility] Last Admin: 06/08/22 08:45 Dose: 80 mg Bupropion HCl (Bupropion Hcl Xl 300 Mg Tab.Er.24h) 300 mg PO DAILY [facility] Last Admin: 06/08/22 08:44 Dose: 300 mg Carvedilol (Carvedilol 12.5 Mg Tablet) 12.5 mg PO BID [facility] Last Admin: 06/08/22 08:44 Dose: 12.5 mg Clopidogrel Bisulfate (Clopidogrel Bisulfate 75 Mg Tablet) 75 mg PO DAILY [facility] Last Admin: 06/08/22 08:45 Dose: 75 mg Cyclobenzaprine HCl (Cyclobenzaprine Hcl 10 Mg Tablet) 10 mg PO Q6H PRN PRN Reason: Muscle Spasm Last Admin: 06/08/22 06:55 Dose: 10 mg Duloxetine HCl (Duloxetine Hcl 60 Mg Capsule.) 60 mg PO DAILY [facility] Last Admin: 06/08/22 08:44 Dose: 60 mg Fludrocortisone Acetate (Fludrocortisone Acetate 0.1 Mg Tablet) 0.1 mg PO DAILY [facility] Last Admin: 06/08/22 08:45 Dose: 0.1 mg Hydrocortisone (Hydrocortisone 1 % Ointment 28.35 Gm Tube) 1 appl TOPICAL BID PRN; Protocol PRN Reason: left hand Last Admin: 05/27/22 09:27 Dose: 1 appl Ibuprofen (Ibuprofen 800 Mg Tablet) 800 mg PO Q8H PRN PRN Reason: Pain, Moderate (Pain Scale 4-6 Last Admin: 06/08/22 06:53 Dose: 800 mg Lactic Acid (Ammonium Lactate 12 % Cream 140 Gm Tube) 1 appl TOPICAL BID PRN; Protocol PRN Reason: Dry Skin Last Admin: 05/31/22 08:41 Dose: 1 appl Lorazepam (Lorazepam 1 Mg Tablet) 1 mg PO Q4H PRN PRN Reason: Anxiety Last Admin: 06/08/22 13:37 Dose: 1 mg Magnesium Hydroxide (Milk Of Magnesia 30 Ml Oral.Susp) 30 ml PO DAILY PRN PRN Reason: Constipation Magnesium Oxide (Magnesium Oxide 400 Mg Tablet) 400 mg PO DAILY [facility] Last Admin: 06/08/22 08:44 Dose: 400 mg Midodrine (Midodrine Hcl 5 Mg Tablet) 5 mg PO TID@0900,1300,1800 [facility] Last Admin: 06/08/22 13:36 Dose: Not Given Multi-Ingred Cream/Lotion/Oil/Oint (Mineral Oil/Petrolatum,White 106 Gm Tube) 1 appl TOPICAL BID [facility]; Protocol Last Admin: 06/08/22 10:33 Dose: 1 appl Multivitamins/Vitamin C (Multivitamin Tablet) 1 tab PO DAILY [facility] Last Admin: 06/08/22 08:44 Dose: 1 tab Nicotine (Nicotine 21 Mg Patch.Td24) 21 mg TRANSDERMA DAILY PRN PRN Reason: nicotine cravings Omeprazole (Omeprazole 20 Mg Capsule.) 20 mg PO DAILY@0630 [facility] Last Admin: 06/08/22 06:53 Dose: 20 mg Pregabalin (Pregabalin 150 Mg Capsule) 150 mg PO TID@0630,1230,2030 [facility] Last Admin: 06/08/22 12:28 Dose: 150 mg Trazodone HCl (Trazodone Hcl 50 Mg Tablet) 50 mg PO BEDTIME PRN PRN Reason: Insomnia Last Admin: 06/08/22 02:50 Dose: 50 mg Trolamine Salicylate (Trolamine Salicylate 10 % Cream 141 Gm Tube) 1 appl TOPICAL QID PRN; Protocol PRN Reason: low back pain Last Admin: 06/03/22 15:47 Dose: 1 appl Allergies Allergies Allergy/AdvReac Type Severity Reaction Status Date / Time aspirin [ASPIRIN] Allergy Unknown SENSITIVITY Verified 04/30/22 13:04 lisinopril Allergy Unknown falls, Verified 04/30/22 13:04 muscle weakness Assessment & Plan Assessment & Plan (1) Borderline personality disorder: Status: Acute Code(s): F60.3 - Borderline personality disorder Plan 05/16: continue outpt meds for now. cardiology consult for mgmt of BP and opinion on QTc mgmt. OT eval for ambulation and need for [facility]. build rapport, consider mood/anxiety medication as indicated. Patient educated on: diagnosis and substance abuse 05/17: per OT: She should continue using the walker. Her biggest issue is her orthostatic hypotension and frequently syncopizes (not in past 2 weeks though). As for her ability to live independently, yes, from a purely musculoskeletal standpoint. per Cardiology: 1) reduce midodrine to 5 mg TID, give 30 min prior to meals. 2) reduce carvedilol to 12.5 BID. 3) continue fludrocortisone as is. 4) BP Q3H WA. 5) hold midodrine for SBP > 150 or DBP > 95. 6) hold fludrocortisone if SBP > 150. 7) hold carvedilol if SBP < 110. 8) replete Mg to above 2. 9) replete K to above 4. 10) QTc up to 500 ms is acceptable for now. psych: stable presentation. 05/18: BP improved. gabapentin increased to 900 QID as of today.? otherwise continue current mgmt. 05/19: continue tx. 05/20: No changes to current treatment plan.? Will adjust Advil to 800 mg as needed up to 3 times per day consistent with patient's home regimen 05/21: No changes to current treatment plan. 05/22: wrist brace for carpal tunnel complaints.? ativan 1 mg daily PRN for severe anxiety, only while hospitalized.? very wordy today, seemingly evasive about discussing substantive issues regarding her Tx here and dispo planning. 05/23: extremely denigrating and accusatory, asserting staff enjoy her suffering and are intentionally doing things to make her suffer.? demanding medical attention for myriad complaints, historical and chronic as well as more recent.? alleging withholding of care.? demanding to have a wheelchair, states she cannot ambulate due to foot pain.? PT eval for wheelchair, T/C med consult for prominent and acute complaints. 05/24: declines mtg with MD, saying she is not in the mood.? interdisciplinary mtg held re pt's care, plan to pursue more collateral, check [facility], refer for [facility]H services made. 05/25: quite angry/pressured with litany of complaints today.? [facility] .? placed on 1:1 for SIB. 05/26: periods of collaboration and calm today, interspersed with the recent aggressiveness and criticality.? OBS decreased to Q5 min checks at pt request.? she reports she will begin to take her medications again in response.? denying any SIBI, states she will refrain from engaging in such. 05/28/22 Continue current regime, as she reports she believes it is beginning to work. Discussion of feeling hurt by some team interactions with her-continue to educate re process of therapy and rationale for questions she is asked. 05/29: denies banging her head over weekend, yet RN note from 05/28 states she did so.? more pleasant today, focussed on scapegoating particular staff member rather than the class as a whole.? paranoid unnamed staff are messing with her, however, such as my messing up her meal orders, as apparently happened twice over the weekend.? divulged trauma-related nightmares and insomnia, considering prazosin (cardiology consulted). 05/30: calm, cooperative, not aggressive or critical today.? agrees to trial of wellbutrin as adjunctive anti-depressant. 05/31: calm, cooperative.? increasingly future-oriented and collaborative.? will submit [facility] application.? no side effects from medications.? continue current mgmt, increase wellbutrin after 2 more days. 06/01: pleasant, even cheery.? no complaints.? one more day of wellbutrin 150, then increase to 300.? revisit possibility of prazosin for nightmares and insomnia in PTSD. 06/02: continues pleasant and cheery.? asking for gabapentin taper and lyrica titration.? wellbutrin to be increased to 300 mg as of tomorrow.? otherwise continue current mgmt. 06/03: No med changes, pt declines to meet with T/W, denies concerns 06/04: No med changes, continue with gabapentin taper and lyrica titration 06/05: No med changes, continue with gabapentin taper and lyrica titration 06/06: DC gabapentin, double lyrica to 150 TID. 06/07: no change in presentation. not aggressive or critical. neuropathy improved with lyrica. [facility] contacted and encouraged to expedite case. 06/08: [facility] to meet with pt next sunday. pt c/o unsteadiness, short-term memory loss. neuropathy improved. Reason for contiued inpatient stay Substantial Risk for: harm to self, inability to function and rapid decompensation Time Spent With Patient Time: Total time managing care of this patient today _35___ minutes.
[2022-06-08 18:20] VITALS: BP 153/92; PULSE 85
[2022-06-08 20:52] VITALS: BP 126/79; PULSE 83; RESP 18; TEMP 36.3; O2SAT 100
[2022-06-09] MEDS: Omeprazole 20 MG CAPSULE.DR PO (06:27)
[2022-06-09] MEDS: Pregabalin 150 MG CAPSULE PO ×3 (06:27→20:31)
[2022-06-09 08:35] VITALS: BP 172/97; PULSE 90; RESP 16; TEMP 36.6; O2SAT 100
[2022-06-09] MEDS: Fludrocortisone Acetate 0.1 MG TABLET PO (08:41)
[2022-06-09] MEDS: carvediloL 12.5 MG TABLET PO ×2 (08:41→20:32)
[2022-06-09] MEDS: Aspirin Enteric Coated 81 MG TABLET.DR PO (08:41)
[2022-06-09] MEDS: buPROPion HCl XL 300 MG TAB.ER.24H PO (08:41)
[2022-06-09] MEDS: Atorvastatin Calcium 80 MG TABLET PO (08:42)
[2022-06-09] MEDS: Multivitamin TABLET 1 TAB PO (08:42)
[2022-06-09] MEDS: DULoxetine HCl 60 MG CAPSULE.DR PO (08:42)
[2022-06-09] MEDS: Clopidogrel Bisulfate 75 MG TABLET PO (08:42)
[2022-06-09] MEDS: Magnesium Oxide 400 MG TABLET PO (08:43)
[2022-06-09] MEDS: Milk of Magnesia 30 ML ORAL.SUSP PO (08:49)
[2022-06-09] MEDS: Cyclobenzaprine HCl 10 MG TABLET PO ×2 (10:17→17:04)
[2022-06-09] MEDS: Ibuprofen 800 MG TABLET PO ×2 (10:18→20:32)
--- NOTE | 2022-06-09 12:41 | P.PNPSI_ITS ---
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 feels lyrica has been helpful for neuropathic pain. foot xrays reviewed, which demonstrate numerous reasons for foot pain. no other complaints or requests, aside from PT to evaluate her for taping for plantar fasciitis pain. per staff, poor ADLs yesterday. only goal is to kill myself. laughing and joking with peers. no SI now, buit SI if she were to be discharged. [facility] mt sunday at 2. Mental Status Exam Mental Status Exam Narrative: cooperative.? no PMA/PMR.? speech nml rate, loudness, amount, latency.? thoughts linear and logical, not aggressive or critical today.? affect full range, normo- intense, non-labile.? no SI/HI/AVH expressed. Diagnostics Vital Signs (24Hr): Vital Signs - 24 hr 06/08/22 13:30 06/08/22 18:20 06/08/22 20:52 Temperature 97.4 F Pulse Rate 85 85 83 Respiratory Rate 18 Blood Pressure 156/89 H 153/92 H 126/79 Pulse Oximetry 100 Oxygen Delivery Method Room Air 06/09/22 08:35 Temperature 97.8 F Pulse Rate 90 Respiratory Rate 16 Blood Pressure 172/97 H Pulse Oximetry 100 Oxygen Delivery Method Room Air BMI result Body Mass Index 30.2 Labs Results: 05/15/22 10:32 05/16/22 08:44 Imaging Radiology Impressions: ITS Impressions Venous Duplex 05/22/22 21:36 IMPRESSION: No DVT demonstrated in the left lower extremity. Brain MRI 05/26/22 13:18 IMPRESSION: There are scattered nonspecific signal changes primarily involving the periventricular white matter. There is a single focus of T2 FLAIR signal hyperintensity within the left nick with associated ill-defined enhancement on postcontrast imaging. This finding could represent a small developmental venous anomaly or capillary telangiectasia. The possibility of active demyelination in the setting of suspected demyelinating disease cannot be definitively excluded but is felt to be less likely based on the distribution of chronic white matter disease. A follow-up brain MRI without and with contrast can be obtained at 6 months to assess the stability of this finding. Otherwise no abnormal enhancement visualized elsewhere within the [id number] of this examination. No evidence of acute territorial infarct or hemorrhage. Foot X-Ray 06/02/22 12:49 IMPRESSION: Right foot: *Partial visualization of marked osteoarthritis of the tibiotalar joint. *Partial visualization of an internal fixation screw within the distal fibula. *No acute abnormalities identified. Left foot: *Chronic posttraumatic deformity of the base of the fifth metatarsal. *No acute abnormalities identified. *Moderate plantar calcaneal enthesophyte which may represent the sequela of chronic plantar fasciitis. Foot X-Ray 06/02/22 12:49 IMPRESSION: Right foot: *Partial visualization of marked osteoarthritis of the tibiotalar joint. *Partial visualization of an internal fixation screw within the distal fibula. *No acute abnormalities identified. Left foot: *Chronic posttraumatic deformity of the base of the fifth metatarsal. *No acute abnormalities identified. *Moderate plantar calcaneal enthesophyte which may represent the sequela of chronic plantar fasciitis. Medications Medications Current Medications Acetaminophen (Acetaminophen 325 Mg Tablet) 650 mg PO Q6H PRN PRN Reason: Headache/Pain Mild Scale (1-3) Last Admin: 05/19/22 06:21 Dose: 650 mg Al Hydroxide/Mg Hydroxide (Magnesium Hydrox/Alum Hydrox 30 Ml Oral.Susp) 30 ml PO Q6H PRN PRN Reason: Heartburn/Nausea Aspirin (Aspirin Enteric Coated 81 Mg Tablet.) 81 mg PO DAILY [facility] Last Admin: 06/09/22 08:41 Dose: 81 mg Atorvastatin Calcium (Atorvastatin Calcium 80 Mg Tablet) 80 mg PO DAILY [facility] Last Admin: 06/09/22 08:42 Dose: 80 mg Bupropion HCl (Bupropion Hcl Xl 300 Mg Tab.Er.24h) 300 mg PO DAILY [facility] Last Admin: 06/09/22 08:41 Dose: 300 mg Carvedilol (Carvedilol 12.5 Mg Tablet) 12.5 mg PO BID [facility] Last Admin: 06/09/22 08:41 Dose: 12.5 mg Clopidogrel Bisulfate (Clopidogrel Bisulfate 75 Mg Tablet) 75 mg PO DAILY [facility] Last Admin: 06/09/22 08:42 Dose: 75 mg Cyclobenzaprine HCl (Cyclobenzaprine Hcl 10 Mg Tablet) 10 mg PO Q6H PRN PRN Reason: Muscle Spasm Last Admin: 06/09/22 10:17 Dose: 10 mg Duloxetine HCl (Duloxetine Hcl 60 Mg Capsule.) 60 mg PO DAILY [facility] Last Admin: 06/09/22 08:42 Dose: 60 mg Fludrocortisone Acetate (Fludrocortisone Acetate 0.1 Mg Tablet) 0.1 mg PO DAILY [facility] Last Admin: 06/09/22 08:41 Dose: 0.1 mg Hydrocortisone (Hydrocortisone 1 % Ointment 28.35 Gm Tube) 1 appl TOPICAL BID PRN; Protocol PRN Reason: left hand Last Admin: 05/27/22 09:27 Dose: 1 appl Ibuprofen (Ibuprofen 800 Mg Tablet) 800 mg PO Q8H PRN PRN Reason: Pain, Moderate (Pain Scale 4-6 Last Admin: 06/09/22 10:18 Dose: 800 mg Lactic Acid (Ammonium Lactate 12 % Cream 140 Gm Tube) 1 appl TOPICAL BID PRN; Protocol PRN Reason: Dry Skin Last Admin: 05/31/22 08:41 Dose: 1 appl Lorazepam (Lorazepam 1 Mg Tablet) 1 mg PO Q4H PRN PRN Reason: Anxiety Last Admin: 06/08/22 13:37 Dose: 1 mg Magnesium Hydroxide (Milk Of Magnesia 30 Ml Oral.Susp) 30 ml PO DAILY PRN PRN Reason: Constipation Last Admin: 06/09/22 08:49 Dose: 30 ml Magnesium Oxide (Magnesium Oxide 400 Mg Tablet) 400 mg PO DAILY [facility] Last Admin: 06/09/22 08:43 Dose: 400 mg Midodrine (Midodrine Hcl 5 Mg Tablet) 5 mg PO TID@0900,1300,1800 [facility] Last Admin: 06/09/22 08:43 Dose: Not Given Multi-Ingred Cream/Lotion/Oil/Oint (Mineral Oil/Petrolatum,White 106 Gm Tube) 1 appl TOPICAL BID [facility]; Protocol Last Admin: 06/09/22 08:43 Dose: Not Given Multivitamins/Vitamin C (Multivitamin Tablet) 1 tab PO DAILY [facility] Last Admin: 06/09/22 08:42 Dose: 1 tab Nicotine (Nicotine 21 Mg Patch.Td24) 21 mg TRANSDERMA DAILY PRN PRN Reason: nicotine cravings Omeprazole (Omeprazole 20 Mg Capsule.) 20 mg PO DAILY@0630 [facility] Last Admin: 06/09/22 06:27 Dose: 20 mg Pregabalin (Pregabalin 150 Mg Capsule) 150 mg PO TID@0630,1230,2030 [facility] Last Admin: 06/09/22 12:11 Dose: 150 mg Trazodone HCl (Trazodone Hcl 50 Mg Tablet) 50 mg PO BEDTIME PRN PRN Reason: Insomnia Last Admin: 06/08/22 02:50 Dose: 50 mg Trolamine Salicylate (Trolamine Salicylate 10 % Cream 141 Gm Tube) 1 appl TOPICAL QID PRN; Protocol PRN Reason: low back pain Last Admin: 06/03/22 15:47 Dose: 1 appl Allergies Allergies Allergy/AdvReac Type Severity Reaction Status Date / Time aspirin [ASPIRIN] Allergy Unknown SENSITIVITY Verified 04/30/22 13:04 lisinopril Allergy Unknown falls, Verified 04/30/22 13:04 muscle weakness Assessment & Plan Assessment & Plan (1) Borderline personality disorder: Status: Acute Code(s): F60.3 - Borderline personality disorder Plan 05/16: continue outpt meds for now. cardiology consult for mgmt of BP and opinion on QTc mgmt. OT eval for ambulation and need for correction. build rapport, consider mood/anxiety medication as indicated. Patient educated on: diagnosis and substance abuse 05/17: per OT: She should continue using the walker. Her biggest issue is her orthostatic hypotension and frequently syncopizes (not in past 2 weeks though). As for her ability to live independently, yes, from a purely musculoskeletal standpoint. per Cardiology: 1) reduce midodrine to 5 mg TID, give 30 min prior to meals. 2) reduce carvedilol to 12.5 BID. 3) continue fludrocortisone as is. 4) BP Q3H WA. 5) hold midodrine for SBP > 150 or DBP > 95. 6) hold fludrocortisone if SBP > 150. 7) hold carvedilol if SBP < 110. 8) replete Mg to above 2. 9) replete K to above 4. 10) QTc up to 500 ms is acceptable for now. psych: stable presentation. 05/18: BP improved. gabapentin increased to 900 QID as of today.? otherwise continue current mgmt. 05/19: continue tx. 05/20: No changes to current treatment plan.? Will adjust Advil to 800 mg as needed up to 3 times per day consistent with patient's home regimen 05/21: No changes to current treatment plan. 05/22: wrist brace for carpal tunnel complaints.? ativan 1 mg daily PRN for severe anxiety, only while hospitalized.? very wordy today, seemingly evasive about discussing substantive issues regarding her Tx here and dispo planning. 05/23: extremely denigrating and accusatory, asserting staff enjoy her suffering and are intentionally doing things to make her suffer.? demanding medical attention for myriad complaints, historical and chronic as well as more recent.? alleging withholding of care.? demanding to have a wheelchair, states she cannot ambulate due to foot pain.? PT eval for wheelchair, T/C med consult for prominent and acute complaints. 05/24: declines mtg with MD, saying she is not in the mood.? interdisciplinary mtg held re pt's care, plan to pursue more collateral, check [facility], refer for [facility] services made. 05/25: quite angry/pressured with litany of complaints today.? [facility] .? placed on 1:1 for SIB. 05/26: periods of collaboration and calm today, interspersed with the recent aggressiveness and criticality.? OBS decreased to Q5 min checks at pt request.? she reports she will begin to take her medications again in response.? denying any SIBI, states she will refrain from engaging in such. 05/28/22 Continue current regime, as she reports she believes it is beginning to work. Discussion of feeling hurt by some team interactions with her-continue to educate re process of therapy and rationale for questions she is asked. 05/29: denies banging her head over weekend, yet RN note from 05/28 states she did so.? more pleasant today, focussed on scapegoating particular staff member rather than the class as a whole.? paranoid unnamed staff are messing with her, however, such as my messing up her meal orders, as apparently happened twice over the weekend.? divulged trauma-related nightmares and insomnia, considering prazosin (cardiology consulted). 05/30: calm, cooperative, not aggressive or critical today.? agrees to trial of wellbutrin as adjunctive anti-depressant. 05/31: calm, cooperative.? increasingly future-oriented and collaborative.? will submit [facility] application.? no side effects from medications.? continue current mgmt, increase wellbutrin after 2 more days. 06/01: pleasant, even cheery.? no complaints.? one more day of wellbutrin 150, then increase to 300.? revisit possibility of prazosin for nightmares and insomnia in PTSD. 06/02: continues pleasant and cheery.? asking for gabapentin taper and lyrica titration.? wellbutrin to be increased to 300 mg as of tomorrow.? otherwise continue current mgmt. 06/03: No med changes, pt declines to meet with T/W, denies concerns 06/04: No med changes, continue with gabapentin taper and lyrica titration 06/05: No med changes, continue with gabapentin taper and lyrica titration 06/06: DC gabapentin, double lyrica to 150 TID. 06/07: no change in presentation. not aggressive or critical. neuropathy improved with lyrica. [facility] contacted and encouraged to expedite case. 06/08: [facility] to meet with pt next sunday. pt c/o unsteadiness, short-term memory loss. neuropathy improved. 06/02: neuropathy continues improved. bright, social, engaging while still reporting intent to suicide. Reason for contiued inpatient stay Substantial Risk for: harm to self, inability to function and rapid decompensation Time Spent With Patient Time: Total time managing care of this patient today _35___ minutes.
[2022-06-09] MEDS: Trolamine Salicylate 10 % Cream 141 gm Tube 1 APPL TOPICAL (14:07)
[2022-06-09] MEDS: LORazepam 1 MG TABLET PO (17:16)
[2022-06-09 20:25] VITALS: BP 150/80; PULSE 83; RESP 16; TEMP 36.3; O2SAT 100
[2022-06-09] MEDS: Mineral Oil/Petrolatum,White 106 GM Tube 1 APPL TOPICAL (20:37)
[2022-06-10] MEDS: Pregabalin 150 MG CAPSULE PO ×3 (06:12→20:55)
[2022-06-10] MEDS: Omeprazole 20 MG CAPSULE.DR PO (06:12)
[2022-06-10 08:00] VITALS: BP 136/84; PULSE 93; RESP 20; TEMP 36.6; O2SAT 100
[2022-06-10] MEDS: buPROPion HCl XL 300 MG TAB.ER.24H PO (10:17)
[2022-06-10] MEDS: Multivitamin TABLET 1 TAB PO (10:17)
[2022-06-10] MEDS: Clopidogrel Bisulfate 75 MG TABLET PO (10:17)
[2022-06-10] MEDS: Ibuprofen 800 MG TABLET PO ×2 (10:18→20:53)
[2022-06-10] MEDS: Fludrocortisone Acetate 0.1 MG TABLET PO (10:18)
[2022-06-10] MEDS: Aspirin Enteric Coated 81 MG TABLET.DR PO (10:18)
[2022-06-10] MEDS: LORazepam 1 MG TABLET PO ×3 (10:18→20:54)
[2022-06-10] MEDS: DULoxetine HCl 60 MG CAPSULE.DR PO (10:19)
[2022-06-10] MEDS: Atorvastatin Calcium 80 MG TABLET PO (10:19)
[2022-06-10] MEDS: Midodrine HCl 5 MG TABLET PO (10:19)
[2022-06-10] MEDS: carvediloL 12.5 MG TABLET PO (10:19)
[2022-06-10] MEDS: Magnesium Oxide 400 MG TABLET PO (10:19)
--- NOTE | 2022-06-10 11:30 | P.PNPSI_ITS ---
Subjective Subjective Date of Service: 06/10/22 Reason For Visit: SI Interim History: Patient says she feels some improvement since admission. Focusing on her chronic pain. Says the Lyrica is starting to help. She denies side effects with it. Appears in good mood. Interactive with patients and staff. Was upset earlier because her medications were not dispensed right when she asked for them and dumped them into a cup with water then apologized to RN. Denies SI today. Review of Systems Review of Systems Yes all other systems are reviewed and are negative Constitutional: Reports no additional constitutional complaints Eyes: Reports no additional eye complaints Cardiovascular: Denies chest pain, Denies syncope, Reports rapid heart rate, Denies leg edema, Denies lightheadedness, Denies Loss of Consciousness, Denies palpitations and Denies dyspnea Respiratory: Reports no additional respiratory complaints and Denies dyspnea Gastrointestinal: Reports no additional gastrointestinal complaints Musculoskeletal: Reports no additional musculoskeletal complaints and Reports abnormal gait Skin/Breast: Reports system reviewed and no additional complaints, except as docu Reports abnormal gait, Denies syncope, Reports paresthesias and Reports other ( Neuropathic pain) Psychiatric: Reports anxiety, Reports mood swings and Reports suicidal ideation Endocrine: Denies palpitations Mental Status Exam Mental Status Exam Narrative: cooperative.? no PMA/PMR.? speech nml rate, loudness, amount, latency.? thoughts linear and logical, not aggressive or critical today.? affect full range, normo- intense, non-labile.? no SI/HI/AVH expressed. Patient Appearance: Appropriate Patient Orientation: Person, Place, Time and Situation Level of Consciousness: Alert Patient Behavior: Talkative, Cooperative and Good Eye Contact Mood Description: Depressed and Blunted Affect Description: Blunted Patient Cognition Impaired: No Ability to Follow Directions: Good Speech Pattern: Spontaneous Speech Memory Description: Intact Diagnostics Vital Signs (24Hr): Vital Signs - 24 hr 06/09/22 20:25 06/10/22 08:00 Temperature 97.4 F 97.9 F Pulse Rate 83 93 Respiratory Rate 16 20 Blood Pressure 150/80 H 136/84 Pulse Oximetry 100 100 Oxygen Delivery Method Room Air Room Air BMI result Body Mass Index 30.2 Labs Results: 05/15/22 10:32 05/16/22 08:44 Imaging Radiology Impressions: ITS Impressions Venous Duplex 05/22/22 21:36 IMPRESSION: No DVT demonstrated in the left lower extremity. Brain MRI 05/26/22 13:18 IMPRESSION: There are scattered nonspecific signal changes primarily involving the periventricular white matter. There is a single focus of T2 FLAIR signal hyperintensity within the left nick with associated ill-defined enhancement on postcontrast imaging. This finding could represent a small developmental venous anomaly or capillary telangiectasia. The possibility of active demyelination in the setting of suspected demyelinating disease cannot be definitively excluded but is felt to be less likely based on the distribution of chronic white matter disease. A follow-up brain MRI without and with contrast can be obtained at 6 months to assess the stability of this finding. Otherwise no abnormal enhancement visualized elsewhere within the [id number] of this examination. No evidence of acute territorial infarct or hemorrhage. Foot X-Ray 06/02/22 12:49 IMPRESSION: Right foot: *Partial visualization of marked osteoarthritis of the tibiotalar joint. *Partial visualization of an internal fixation screw within the distal fibula. *No acute abnormalities identified. Left foot: *Chronic posttraumatic deformity of the base of the fifth metatarsal. *No acute abnormalities identified. *Moderate plantar calcaneal enthesophyte which may represent the sequela of chronic plantar fasciitis. Foot X-Ray 06/02/22 12:49 IMPRESSION: Right foot: *Partial visualization of marked osteoarthritis of the tibiotalar joint. *Partial visualization of an internal fixation screw within the distal fibula. *No acute abnormalities identified. Left foot: *Chronic posttraumatic deformity of the base of the fifth metatarsal. *No acute abnormalities identified. *Moderate plantar calcaneal enthesophyte which may represent the sequela of chronic plantar fasciitis. Medications Medications Current Medications Acetaminophen (Acetaminophen 325 Mg Tablet) 650 mg PO Q6H PRN PRN Reason: Headache/Pain Mild Scale (1-3) Last Admin: 05/19/22 06:21 Dose: 650 mg Al Hydroxide/Mg Hydroxide (Magnesium Hydrox/Alum Hydrox 30 Ml Oral.Susp) 30 ml PO Q6H PRN PRN Reason: Heartburn/Nausea Aspirin (Aspirin Enteric Coated 81 Mg Tablet.Dr) 81 mg PO DAILY [facility] Last Admin: 06/10/22 10:18 Dose: 81 mg Atorvastatin Calcium (Atorvastatin Calcium 80 Mg Tablet) 80 mg PO DAILY [facility] Last Admin: 06/10/22 10:19 Dose: 80 mg Bupropion HCl (Bupropion Hcl Xl 300 Mg Tab.Er.24h) 300 mg PO DAILY [facility] Last Admin: 06/10/22 10:17 Dose: 300 mg Carvedilol (Carvedilol 12.5 Mg Tablet) 12.5 mg PO BID [facility] Last Admin: 06/10/22 10:19 Dose: 12.5 mg Clopidogrel Bisulfate (Clopidogrel Bisulfate 75 Mg Tablet) 75 mg PO DAILY [facility] Last Admin: 06/10/22 10:17 Dose: 75 mg Cyclobenzaprine HCl (Cyclobenzaprine Hcl 10 Mg Tablet) 10 mg PO Q6H PRN PRN Reason: Muscle Spasm Last Admin: 06/10/22 16:28 Dose: 10 mg Duloxetine HCl (Duloxetine Hcl 60 Mg Capsule.Dr) 60 mg PO DAILY [facility] Last Admin: 06/10/22 10:19 Dose: 60 mg Fludrocortisone Acetate (Fludrocortisone Acetate 0.1 Mg Tablet) 0.1 mg PO DAILY [facility] Last Admin: 06/10/22 10:18 Dose: 0.1 mg Hydrocortisone (Hydrocortisone 1 % Ointment 28.35 Gm Tube) 1 appl TOPICAL BID PRN; Protocol PRN Reason: left hand Last Admin: 05/27/22 09:27 Dose: 1 appl Ibuprofen (Ibuprofen 800 Mg Tablet) 800 mg PO Q8H PRN PRN Reason: Pain, Moderate (Pain Scale 4-6 Last Admin: 06/10/22 10:18 Dose: 800 mg Lactic Acid (Ammonium Lactate 12 % Cream 140 Gm Tube) 1 appl TOPICAL BID PRN; Protocol PRN Reason: Dry Skin Last Admin: 05/31/22 08:41 Dose: 1 appl Lorazepam (Lorazepam 1 Mg Tablet) 1 mg PO Q4H PRN PRN Reason: Anxiety Last Admin: 06/10/22 16:27 Dose: 1 mg Magnesium Hydroxide (Milk Of Magnesia 30 Ml Oral.Susp) 30 ml PO DAILY PRN PRN Reason: Constipation Last Admin: 06/09/22 08:49 Dose: 30 ml Magnesium Oxide (Magnesium Oxide 400 Mg Tablet) 400 mg PO DAILY [facility] Last Admin: 06/10/22 10:19 Dose: 400 mg Midodrine (Midodrine Hcl 5 Mg Tablet) 5 mg PO TID@0900,1300,1800 [facility] Last Admin: 06/10/22 14:50 Dose: Not Given Multi-Ingred Cream/Lotion/Oil/Oint (Mineral Oil/Petrolatum,White 106 Gm Tube) 1 appl TOPICAL BID [facility]; Protocol Last Admin: 06/10/22 12:29 Dose: 1 appl Multivitamins/Vitamin C (Multivitamin Tablet) 1 tab PO DAILY [facility] Last Admin: 06/10/22 10:17 Dose: 1 tab Nicotine (Nicotine 21 Mg Patch.Td24) 21 mg TRANSDERMA DAILY PRN PRN Reason: nicotine cravings Omeprazole (Omeprazole 20 Mg Capsule.Dr) 20 mg PO DAILY@0630 [facility] Last Admin: 06/10/22 06:12 Dose: 20 mg Pregabalin (Pregabalin 150 Mg Capsule) 150 mg PO TID@0630,1230,2030 [facility] Last Admin: 06/10/22 12:29 Dose: 150 mg Trazodone HCl (Trazodone Hcl 50 Mg Tablet) 50 mg PO BEDTIME PRN PRN Reason: Insomnia Last Admin: 06/08/22 02:50 Dose: 50 mg Trolamine Salicylate (Trolamine Salicylate 10 % Cream 141 Gm Tube) 1 appl TOP ICAL QID PRN; Protocol PRN Reason: low back pain Last Admin: 06/09/22 14:07 Dose: 1 appl Allergies Allergies Allergy/AdvReac Type Severity Reaction Status Date / Time aspirin [ASPIRIN] Allergy Unknown SENSITIVITY Verified 04/30/22 13:04 lisinopril Allergy Unknown falls, Verified 04/30/22 13:04 muscle weakness Assessment & Plan Assessment & Plan (1) Borderline personality disorder: Status: Acute Code(s): F60.3 - Borderline personality disorder Plan 05/16: continue outpt meds for now. cardiology consult for mgmt of BP and opinion on QTc mgmt. OT eval for ambulation and need for assisted. build rapport, consider mood/anxiety medication as indicated. Patient educated on: diagnosis and substance abuse 05/17: per OT: She should continue using the walker. Her biggest issue is her orthostatic hypotension and frequently syncopizes (not in past 2 weeks though). As for her ability to live independently, yes, from a purely musculoskeletal standpoint. per Cardiology: 1) reduce midodrine to 5 mg TID, give 30 min prior to meals. 2) reduce carvedilol to 12.5 BID. 3) continue fludrocortisone as is. 4) BP Q3H WA. 5) hold midodrine for SBP > 150 or DBP > 95. 6) hold fludrocortisone if SBP > 150. 7) hold carvedilol if SBP < 110. 8) replete Mg to above 2. 9) replete K to above 4. 10) QTc up to 500 ms is acceptable for now. psych: stable presentation. 05/18: BP improved. gabapentin increased to 900 QID as of today.? otherwise continue current mgmt. 05/19: continue tx. 05/20: No changes to current treatment plan.? Will adjust Advil to 800 mg as needed up to 3 times per day consistent with patient's home regimen 05/21: No changes to current treatment plan. 05/22: wrist brace for carpal tunnel complaints.? ativan 1 mg daily PRN for severe anxiety, only while hospitalized.? very wordy today, seemingly evasive about discussing substantive issues regarding her Tx here and dispo planning. 05/23: extremely denigrating and accusatory, asserting staff enjoy her suffering and are intentionally doing things to make her suffer.? demanding medical attention for myriad complaints, historical and chronic as well as more recent.? alleging withholding of care.? demanding to have a wheelchair, states she cannot ambulate due to foot pain.? PT eval for wheelchair, T/C med consult for prominent and acute complaints. 05/24: declines mtg with MD, saying she is not in the mood.? interdisciplinary mtg held re pt's care, plan to pursue more collateral, check [facility], refer for [facility] servic es made. 05/25: quite angry/pressured with litany of complaints today.? [facility] .? placed on 1:1 for SIB. 05/26: periods of collaboration and calm today, interspersed with the recent aggressiveness and criticality.? OBS decreased to Q5 min checks at pt request.? she reports she will begin to take her medications again in response.? denying any SIBI, states she will refrain from engaging in such. 05/28/22 Continue current regime, as she reports she believes it is beginning to work. Discussion of feeling hurt by some team interactions with her-continue to educate re process of therapy and rationale for questions she is asked. 05/29: denies banging her head over weekend, yet RN note from 05/28 states she did so.? more pleasant today, focussed on scapegoating particular staff member rather than the class as a whole.? paranoid unnamed staff are messing with her, however, such as my messing up her meal orders, as apparently happened twice over the weekend.? divulged trauma-related nightmares and insomnia, considering prazosin (cardiology consulted). 05/30: calm, cooperative, not aggressive or critical today.? agrees to trial of wellbutrin as adjunctive anti-depressant. 05/31: calm, cooperative.? increasingly future-oriented and collaborative.? will submit [facility] application.? no side effects from medications.? continue current mgmt, increase wellbutrin after 2 more days. 06/01: pleasant, even cheery.? no complaints.? one more day of wellbutrin 150, then increase to 300.? revisit possibility of prazosin for nightmares and insomnia in PTSD. 06/02: continues pleasant and cheery.? asking for gabapentin taper and lyrica titration.? wellbutrin to be increased to 300 mg as of tomorrow.? otherwise continue current mgmt. 06/03: No med changes, pt declines to meet with T/W, denies concerns 06/04: No med changes, continue with gabapentin taper and lyrica titration 06/05: No med changes, continue with gabapentin taper and lyrica titration 06/06: DC gabapentin, double lyrica to 150 TID. 06/07: no change in presentation. not aggressive or critical. neuropathy improved with lyrica. [facility] contacted and encouraged to expedite case. 06/08: DM to meet with pt next sunday. pt c/o unsteadiness, short-term memory loss. neuropathy improved. 06/02: neuropathy continues improved. bright, social, engaging while still reporting intent to suicide. 06/10: Continue current tx plan. Reason for contiued inpatient stay Substantial Risk for: harm to self Time Spent With Patient Time: Total time managing care of this patient today ____ minutes.
[2022-06-10] MEDS: Mineral Oil/Petrolatum,White 106 GM Tube 1 APPL TOPICAL (12:29)
[2022-06-10] MEDS: Cyclobenzaprine HCl 10 MG TABLET PO ×2 (16:28→20:54)
[2022-06-10 16:30] VITALS: BP 122/77; PULSE 83; RESP 20; O2SAT 100
[2022-06-10 18:00] VITALS: BP 136/80; PULSE 83; RESP 20
[2022-06-10 20:59] VITALS: BP 111/81; PULSE 75; RESP 18; TEMP 36.2; O2SAT 100
[2022-06-11] MEDS: Pregabalin 150 MG CAPSULE PO ×3 (06:36→20:13)
[2022-06-11] MEDS: Ibuprofen 800 MG TABLET PO ×2 (06:36→20:14)
[2022-06-11] MEDS: Omeprazole 20 MG CAPSULE.DR PO (06:36)
[2022-06-11] MEDS: Clopidogrel Bisulfate 75 MG TABLET PO (08:01)
[2022-06-11] MEDS: buPROPion HCl XL 300 MG TAB.ER.24H PO (08:01)
[2022-06-11] MEDS: LORazepam 1 MG TABLET PO ×3 (08:01→20:13)
[2022-06-11] MEDS: Fludrocortisone Acetate 0.1 MG TABLET PO (08:02)
[2022-06-11] MEDS: carvediloL 12.5 MG TABLET PO (08:02)
[2022-06-11] MEDS: Multivitamin TABLET 1 TAB PO (08:02)
[2022-06-11] MEDS: DULoxetine HCl 60 MG CAPSULE.DR PO (08:02)
[2022-06-11] MEDS: Atorvastatin Calcium 80 MG TABLET PO (08:03)
[2022-06-11] MEDS: Magnesium Oxide 400 MG TABLET PO (08:03)
[2022-06-11] MEDS: Cyclobenzaprine HCl 10 MG TABLET PO ×2 (08:04→20:13)
[2022-06-11] MEDS: Aspirin Enteric Coated 81 MG TABLET.DR PO (08:04)
[2022-06-11 08:20] VITALS: BP 131/75; PULSE 96; RESP 20; TEMP 36.6; O2SAT 98
[2022-06-11 09:40] VITALS: BP 121/72; PULSE 96; RESP 20; O2SAT 100
--- NOTE | 2022-06-11 13:15 | HO.PSYCHPN ---
Subjective Subjective Date of Service: 06/11/22 Reason For Visit: SI Interim History: Patient says she feels improvement since admission. She says she hasn't had SI today or yesterday and sleeping well. However, says I can't guarantee how it'll be tomorrow. Her pain is imptoved. She has a rash on the left wrist where she had a band aid. Says the Lyrica is starting to help. She denies side effects with Lyrica. Appears in good mood. Interactive with patients and staff. Review of Systems Review of Systems Yes all other systems are reviewed and are negative Constitutional: Reports no additional constitutional complaints Eyes: Reports no additional eye complaints Cardiovascular: Denies chest pain, Denies syncope, Reports rapid heart rate, Denies leg edema, Denies lightheadedness, Denies Loss of Consciousness, Denies palpitations and Denies dyspnea Respiratory: Reports no additional respiratory complaints and Denies dyspnea Gastrointestinal: Reports no additional gastrointestinal complaints Musculoskeletal: Reports no additional musculoskeletal complaints and Reports abnormal gait Skin/Breast: Reports system reviewed and no additional complaints, except as docu Reports abnormal gait, Denies syncope, Reports paresthesias and Reports other (Neuropathic pain) Psychiatric: Reports anxiety, Reports mood swings and Reports suicidal ideation Endocrine: Denies palpitations Mental Status Exam Mental Status Exam Narrative: cooperative.? no PMA/PMR.? speech nml rate, loudness, amount, latency.? thoughts linear and logical, not aggressive or critical today.? affect full range, normo-intense, non-labile.? no SI/HI/AVH expressed. Patient Appearance: Appropriate Patient Orientation: Person, Place, Time and Situation Level of Consciousness: Alert Patient Behavior: Talkative, Cooperative and Good Eye Contact Mood Description: Depressed and Blunted Affect Description: Blunted Patient Cognition Impaired: No Ability to Follow Directions: Good Speech Pattern: Spontaneous Speech Memory Description: Intact Diagnostics Vital Signs (24Hr): Vital Signs - 24 hr 06/10/22 20:59 06/11/22 08:20 06/11/22 09:40 Temperature 97.2 F 97.9 F Pulse Rate 75 96 96 Respiratory Rate 18 20 20 Blood Pressure 111/81 131/75 121/72 Pulse Oximetry 100 98 100 Oxygen Delivery Method Room Air Room Air Room Air 06/11/22 14:55 Temperature 97.8 F Pulse Rate 87 Respiratory Rate 18 Blood Pressure 142/76 H Pulse Oximetry 100 Oxygen Delivery Method Room Air BMI result Body Mass Index 30.2 Labs Results: 05/15/22 10:32 05/16/22 08:44 Imaging Radiology Impressions: ITS Impressions Venous Duplex 05/22/22 21:36 IMPRESSION: No DVT demonstrated in the left lower extremity. Brain MRI 05/26/22 13:18 IMPRESSION: There are scattered nonspecific signal changes primarily involving the periventricular white matter. There is a single focus of T2 FLAIR signal hyperintensity within the left nick with associated ill-defined enhancement on postcontrast imaging. This finding could represent a small developmental venous anomaly or capillary telangiectasia. The possibility of active demyelination in the setting of suspected demyelinating disease cannot be definitively excluded but is felt to be less likely based on the distribution of chronic white matter disease. A follow-up brain MRI without and with contrast can be obtained at 6 months to assess the stability of this finding. Otherwise no abnormal enhancement visualized elsewhere within the [id number] of this examination. No evidence of acute territorial infarct or hemorrhage. Foot X-Ray 06/02/22 12:49 IMPRESSION: Right foot: *Partial visualization of marked osteoarthritis of the tibiotalar joint. *Partial visualization of an internal fixation screw within the distal fibula. *No acute abnormalities identified. Left foot: *Chronic posttraumatic deformity of the base of the fifth metatarsal. *No acute abnormalities identified. *Moderate plantar calcaneal enthesophyte which may represent the sequela of chronic plantar fasciitis. Foot X-Ray 06/02/22 12:49 IMPRESSION: Right foot: *Partial visualization of marked osteoarthritis of the tibiotalar joint. *Partial visualization of an internal fixation screw within the distal fibula. *No acute abnormalities identified. Left foot: *Chronic posttraumatic deformity of the base of the fifth metatarsal. *No acute abnormalities identified. *Moderate plantar calcaneal enthesophyte which may represent the sequela of chronic plantar fasciitis. Medications Medications Current Medications Acetaminophen (Acetaminophen 325 Mg Tablet) 650 mg PO Q6H PRN PRN Reason: Headache/Pain Mild Scale (1-3) Last Admin: 05/19/22 06:21 Dose: 650 mg Al Hydroxide/Mg Hydroxide (Magnesium Hydrox/Alum Hydrox 30 Ml Oral.Susp) 30 ml PO Q6H PRN PRN Reason: Heartburn/Nausea Aspirin (Aspirin Enteric Coated 81 Mg Tablet.Dr) 81 mg PO DAILY [facility] Last Admin: 06/11/22 08:04 Dose: 81 mg Atorvastatin Calcium (Atorvastatin Calcium 80 Mg Tablet) 80 mg PO DAILY [facility] Last Admin: 06/11/22 08:03 Dose: 80 mg Bupropion HCl (Bupropion Hcl Xl 300 Mg Tab.Er.24h) 300 mg PO DAILY [facility] Last Admin: 06/11/22 08:01 Dose: 300 mg Carvedilol (Carvedilol 12.5 Mg Tablet) 12.5 mg PO BID [facility] Last Admin: 06/11/22 08:02 Dose: 12.5 mg Clopidogrel Bisulfate (Clopidogrel Bisulfate 75 Mg Tablet) 75 mg PO DAILY [facility] Last Admin: 06/11/22 08:01 Dose: 75 mg Cyclobenzaprine HCl (Cyclobenzaprine Hcl 10 Mg Tablet) 10 mg PO Q6H PRN PRN Reason: Muscle Spasm Last Admin: 06/11/22 08:04 Dose: 10 mg Duloxetine HCl (Duloxetine Hcl 60 Mg Capsule.) 60 mg PO DAILY [facility] Last Admin: 06/11/22 08:02 Dose: 60 mg Fludrocortisone Acetate (Fludrocortisone Acetate 0.1 Mg Tablet) 0.1 mg PO DAILY [facility] Last Admin: 06/11/22 08:02 Dose: 0.1 mg Hydrocortisone (Hydrocortisone 1 % Ointment 28.35 Gm Tube) 1 appl TOPICAL BID PRN; Protocol PRN Reason: left hand Last Admin: 05/27/22 09:27 Dose: 1 appl Ibuprofen (Ibuprofen 800 Mg Tablet) 800 mg PO Q8H PRN PRN Reason: Pain, Moderate (Pain Scale 4-6 Last Admin: 06/11/22 06:36 Dose: 800 mg Lactic Acid (Ammonium Lactate 12 % Cream 140 Gm Tube) 1 appl TOPICAL BID PRN; Protocol PRN Reason: Dry Skin Last Admin: 05/31/22 08:41 Dose: 1 appl Lorazepam (Lorazepam 1 Mg Tablet) 1 mg PO Q4H PRN PRN Reason: Anxiety Last Admin: 06/11/22 12:03 Dose: 1 mg Magnesium Hydroxide (Milk Of Magnesia 30 Ml Oral.Susp) 30 ml PO DAILY PRN PRN Reason: Constipation Last Admin: 06/09/22 08:49 Dose: 30 ml Magnesium Oxide (Magnesium Oxide 400 Mg Tablet) 400 mg PO DAILY [facility] Last Admin: 06/11/22 08:03 Dose: 400 mg Midodrine (Midodrine Hcl 5 Mg Tablet) 5 mg PO TID@0900,1300,1800 [facility] Last Admin: 06/11/22 14:51 Dose: Not Given Multi-Ingred Cream/Lotion/Oil/Oint (Mineral Oil/Petrolatum,White 106 Gm Tube) 1 appl TOPICAL BID [facility]; Protocol Last Admin: 06/11/22 09:43 Dose: Not Given Multivitamins/Vitamin C (Multivitamin Tablet) 1 tab PO DAILY [facility] Last Admin: 06/11/22 08:02 Dose: 1 tab Nicotine (Nicotine 21 Mg Patch.Td24) 21 mg TRANSDERMA DAILY PRN PRN Reason: nicotine cravings Omeprazole (Omeprazole 20 Mg Capsule.Dr) 20 mg PO DAILY@0630 [facility] Last Admin: 06/11/22 06:36 Dose: 20 mg Pregabalin (Pregabalin 150 Mg Capsule) 150 mg PO TID@0630,1230,2030 [facility] Last Admin: 06/11/22 12:03 Dose: 150 mg Trazodone HCl (Trazodone Hcl 50 Mg Tablet) 50 mg PO BEDTIME PRN PRN Reason: Insomnia Last Admin: 06/08/22 02:50 Dose: 50 mg Trolamine Salicylate (Trolamine Salicylate 10 % Cream 141 Gm Tube) 1 appl TOPICAL QID PRN; Protocol PRN Reason: low back pain Last Admin: 06/09/22 14:07 Dose: 1 appl Allergies Allergies Allergy/AdvReac Type Severity Reaction Status Date / Time aspirin [ASPIRIN] Allergy Unknown SENSITIVITY Verified 04/30/22 13:04 lisinopril Allergy Unknown falls, Verified 04/30/22 13:04 muscle weakness Assessment & Plan Assessment & Plan (1) Borderline personality disorder: Status: Acute Code(s): F60.3 - Borderline personality disorder Plan 05/16: continue outpt meds for now. cardiology consult for mgmt of BP and opinion on QTc mgmt. OT eval for ambulation and need for prison. build rapport, consider mood/anxiety medication as indicated. Patient educated on: diagnosis and substance abuse 05/17: per OT: She should continue using the walker. Her biggest issue is her orthostatic hypotension and frequently syncopizes (not in past 2 weeks though). As for her ability to live independently, yes, from a purely musculoskeletal standpoint. per Cardiology: 1) reduce midodrine to 5 mg TID, give 30 min prior to meals. 2) reduce carvedilol to 12.5 BID. 3) continue fludrocortisone as is. 4) BP Q3H WA. 5) hold midodrine for SBP > 150 or DBP > 95. 6) hold fludrocortisone if SBP > 150. 7) hold carvedilol if SBP < 110. 8) replete Mg to above 2. 9) replete K to above 4. 10) QTc up to 500 ms is acceptable for now. psych: stable presentation. 05/18: BP improved. gabapentin increased to 900 QID as of today.? otherwise continue current mgmt. 05/19: continue tx. 05/20: No changes to current treatment plan.? Will adjust Advil to 800 mg as needed up to 3 times per day consistent with patient's home regimen 05/21: No changes to current treatment plan. 05/22: wrist brace for carpal tunnel complaints.? ativan 1 mg daily PRN for severe anxiety, only while hospitalized.? very wordy today, seemingly evasive about discussing substantive issues regarding her Tx here and dispo planning. 05/23: extremely denigrating and accusatory, asserting staff enjoy her suffering and are intentionally doing things to make her suffer.? demanding medical attention for myriad complaints, historical and chronic as well as more recent.? alleging withholding of care.? demanding to have a wheelchair, states she cannot ambulate due to foot pain.? PT eval for wheelchair, T/C med consult for prominent and acute complaints. 05/24: declines mtg with MD, saying she is not in the mood.? interdisciplinary mtg held re pt's care, plan to pursue more collateral, check [facility], refer for [facility] services made. 05/25: quite angry/pressured with litany of complaints today.? [facility] .? placed on 1:1 for SIB. 05/26: periods of collaboration and calm today, interspersed with the recent aggressiveness and criticality.? OBS decreased to Q5 min checks at pt request.? she reports she will begin to take her medications again in response.? denying any SIBI, states she will refrain from engaging in such. 05/28/22 Continue current regime, as she reports she believes it is beginning to work. Discussion of feeling hurt by some team interactions with her-continue to educate re process of therapy and rationale for questions she is asked. 05/29: denies banging her head over weekend, yet RN note from 05/28 states she did so.? more pleasant today, focussed on scapegoating particular staff member rather than the class as a whole.? paranoid unnamed staff are messing with her, however, such as my messing up her meal orders, as apparently happened twice over the weekend.? divulged trauma-related nightmares and insomnia, considering prazosin (cardiology consulted). 05/30: calm, cooperative, not aggressive or critical today.? agrees to trial of wellbutrin as adjunctive anti-depressant. 05/31: calm, cooperative.? increasingly future-oriented and collaborative.? will submit [facility] application.? no side effects from medications.? continue current mgmt, increase wellbutrin after 2 more days. 06/01: pleasant, even cheery.? no complaints.? one more day of wellbutrin 150, then increase to 300.? revisit possibility of prazosin for nightmares and insomnia in PTSD. 06/02: continues pleasant and cheery.? asking for gabapentin taper and lyrica titration.? wellbutrin to be increased to 300 mg as of tomorrow.? otherwise continue current mgmt. 06/03: No med changes, pt declines to meet with T/W, denies concerns 06/04: No med changes, continue with gabapentin taper and lyrica titration 06/05: No med changes, continue with gabapentin taper and lyrica titration 06/06: DC gabapentin, double lyrica to 150 TID. 06/07: no change in presentation. not aggressive or critical. neuropathy improved with lyrica. DM contacted and encouraged to expedite case. 06/08: [facility] to meet with pt next sunday. pt c/o unsteadiness, short-term memory loss. neuropathy improved. 06/02: neuropathy continues improved. bright, social, engaging while still reporting intent to suicide. 06/10: Continue current tx plan. 06/11: Continue current tx plan. Reason for contiued inpatient stay Substantial Risk for: harm to self Time Spent With Patient Time: Total time managing care of this patient today ____ minutes.
[2022-06-11 14:55] VITALS: BP 142/76; PULSE 87; RESP 18; TEMP 36.6; O2SAT 100
[2022-06-11 18:22] VITALS: BP 172/88; PULSE 87
[2022-06-11 20:55] VITALS: BP 126/75; PULSE 85; RESP 18; TEMP 36.2; O2SAT 99
[2022-06-12] MEDS: Pregabalin 150 MG CAPSULE PO ×3 (06:16→20:18)
[2022-06-12] MEDS: Omeprazole 20 MG CAPSULE.DR PO (06:16)
[2022-06-12 08:26] VITALS: BP 163/95; PULSE 95; RESP 18; TEMP 36.4; O2SAT 100
[2022-06-12] MEDS: Cyclobenzaprine HCl 10 MG TABLET PO (08:31)
[2022-06-12] MEDS: Ibuprofen 800 MG TABLET PO (08:31)
[2022-06-12] MEDS: carvediloL 12.5 MG TABLET PO (08:31)
[2022-06-12] MEDS: Clopidogrel Bisulfate 75 MG TABLET PO (08:31)
[2022-06-12] MEDS: Atorvastatin Calcium 80 MG TABLET PO (08:31)
[2022-06-12] MEDS: Magnesium Oxide 400 MG TABLET PO (08:32)
[2022-06-12] MEDS: buPROPion HCl XL 300 MG TAB.ER.24H PO (08:32)
[2022-06-12] MEDS: Aspirin Enteric Coated 81 MG TABLET.DR PO (08:32)
[2022-06-12] MEDS: DULoxetine HCl 60 MG CAPSULE.DR PO (08:32)
[2022-06-12] MEDS: Multivitamin TABLET 1 TAB PO (08:33)
[2022-06-12] MEDS: Fludrocortisone Acetate 0.1 MG TABLET PO (08:34)
[2022-06-12] MEDS: Mineral Oil/Petrolatum,White 106 GM Tube 1 APPL TOPICAL (08:54)
[2022-06-12] MEDS: Trolamine Salicylate 10 % Cream 141 gm Tube 1 APPL TOPICAL (10:29)
[2022-06-12] MEDS: Hydrocortisone 1 % Ointment 28.35 GM TUBE 1 APPL TOPICAL ×2 (10:29→20:18)
[2022-06-12 11:30] VITALS: BP 150/74; PULSE 85; RESP 18; O2SAT 100
--- NOTE | 2022-06-12 12:40 | P.PNPSI_ITS ---
Subjective Subjective Date of Service: 06/12/22 Reason For Visit: SI Interim History: Patient continues to feel better. She denies SI today. She has a rash on the left wrist which is improving with the hydrocortisone. Also has an area on the volar aspect of her wrist where she cut herself that requires bacitracin. Her mood is good. Sleep is good. Lyrica helps. She denies side effects with Lyrica. Appears in good mood. Interactive with patients and staff and attending groups. Review of Systems Review of Systems Yes all other systems are reviewed and are negative Constitutional: Reports no additional constitutional complaints Eyes: Reports no additional eye complaints Cardiovascular: Denies chest pain, Denies syncope, Reports rapid heart rate, Denies leg edema, Denies lightheadedness, Denies Loss of Consciousness, Denies palpitations and Denies dyspnea Respiratory: Reports no additional respiratory complaints and Denies dyspnea Gastrointestinal: Reports no additional gastrointestinal complaints Musculoskeletal: Reports no additional musculoskeletal complaints and Reports abnormal gait Skin/Breast: Reports system reviewed and no additional complaints, except as docu Reports abnormal gait, Denies syncope, Reports paresthesias and Reports other (Neuropathic pain) Psychiatric: Reports anxiety, Reports mood swings and Reports suicidal ideation Endocrine: Denies palpitations Mental Status Exam Mental Status Exam Narrative: cooperative.? no PMA/PMR.? speech nml rate, loudness, amount, latency.? thoughts linear and logical, not aggressive or critical today.? affect full range, normo- intense, non-labile.? no SI/HI/AVH expressed. Patient Appearance: Appropriate Patient Orientation: Person, Place, Time and Situation Level of Consciousness: Alert Patient Behavior: Talkative, Cooperative and Good Eye Contact Mood Description: Calm and Appropriate Affect Description: Calm and Appropriate Patient Cognition Impaired: No Ability to Follow Directions: Good Speech Pattern: Spontaneous Speech Memory Description: Intact Diagnostics Vital Signs (24Hr): Vital Signs - 24 hr 06/11/22 18:22 06/11/22 20:55 06/12/22 08:26 Temperature 97.2 F 97.6 F Pulse Rate 87 85 95 Respiratory Rate 18 18 Blood Pressure 172/88 H 126/75 163/95 H Pulse Oximetry 99 100 Oxygen Delivery Method Room Air Room Air 06/12/22 11:30 06/12/22 14:30 Temperature Pulse Rate 85 94 Respiratory Rate 18 18 Blood Pressure 150/74 H 134/83 Pulse Oximetry 100 100 Oxygen Delivery Method Room Air Room Air BMI result Body Mass Index 30.2 Labs Results: 05/15/22 10:32 05/16/22 08:44 Imaging Radiology Impressions: ITS Impressions Venous Duplex 05/22/22 21:36 IMPRESSION: No DVT demonstrated in the left lower extremity. Brain MRI 05/26/22 13:18 IMPRESSION: There are scattered nonspecific signal changes primarily involving the periventricular white matter. There is a single focus of T2 FLAIR signal hyperintensity within the left nick with associated ill-defined enhancement on postcontrast imaging. This finding could represent a small developmental venous anomaly or capillary telangiectasia. The possibility of active demyelination in the setting of suspected demyelinating disease cannot be definitively excluded but is felt to be less likely based on the distribution of chronic white matter disease. A follow-up brain MRI without and with contrast can be obtained at 6 months to assess the stability of this finding. Otherwise no abnormal enhancement visualized elsewhere within the [id number] of this examination. No evidence of acute territorial infarct or hemorrhage. Foot X-Ray 06/02/22 12:49 IMPRESSION: Right foot: *Partial visualization of marked osteoarthritis of the tibiotalar joint. *Partial visualization of an internal fixation screw within the distal fibula. *No acute abnormalities identified. Left foot: *Chronic posttraumatic deformity of the base of the fifth metatarsal. *No acute abnormalities identified. *Moderate plantar calcaneal enthesophyte which may represent the sequela of chronic plantar fasciitis. Foot X-Ray 06/02/22 12:49 IMPRESSION: Right foot: *Partial visualization of marked osteoarthritis of the tibiotalar joint. *Partial visualization of an internal fixation screw within the distal fibula. *No acute abnormalities identified. Left foot: *Chronic posttraumatic deformity of the base of the fifth metatarsal. *No acute abnormalities identified. *Moderate plantar calcaneal enthesophyte which may represent the sequela of chronic plantar fasciitis. Medications Medications Current Medications Acetaminophen (Acetaminophen 325 Mg Tablet) 650 mg PO Q6H PRN PRN Reason: Headache/Pain Mild Scale (1-3) Last Admin: 05/19/22 06:21 Dose: 650 mg Al Hydroxide/Mg Hydroxide (Magnesium Hydrox/Alum Hydrox 30 Ml Oral.Susp) 30 ml PO Q6H PRN PRN Reason: Heartburn/Nausea Aspirin (Aspirin Enteric Coated 81 Mg Tablet.Dr) 81 mg PO DAILY [facility] Last Admin: 06/12/22 08:32 Dose: 81 mg Atorvastatin Calcium (Atorvastatin Calcium 80 Mg Tablet) 80 mg PO DAILY [facility] Last Admin: 06/12/22 08:31 Dose: 80 mg Bacitracin (Bacitracin Oint 14 Gm Tube) 1 appl TOPICAL BID [facility]; Protocol Bacitracin (Bacitracin Oint 14 Gm Tube) 1 appl TOPICAL BID [facility]; Protocol Bupropion HCl (Bupropion Hcl Xl 300 Mg Tab.Er.24h) 300 mg PO DAILY [facility] Last Admin: 06/12/22 08:32 Dose: 300 mg Carvedilol (Carvedilol 12.5 Mg Tablet) 12.5 mg PO BID [facility] Last Admin: 06/12/22 08:31 Dose: 12.5 mg Clopidogrel Bisulfate (Clopidogrel Bisulfate 75 Mg Tablet) 75 mg PO DAILY [facility] Last Admin: 06/12/22 08:31 Dose: 75 mg Cyclobenzaprine HCl (Cyclobenzaprine Hcl 10 Mg Tablet) 10 mg PO Q6H PRN PRN Reason: Muscle Spasm Last Admin: 06/12/22 08:31 Dose: 10 mg Duloxetine HCl (Duloxetine Hcl 60 Mg Capsule.) 60 mg PO DAILY [facility] Last Admin: 06/12/22 08:32 Dose: 60 mg Fludrocortisone Acetate (Fludrocortisone Acetate 0.1 Mg Tablet) 0.1 mg PO DAILY [facility] Last Admin: 06/12/22 08:34 Dose: 0.1 mg Hydrocortisone (Hydrocortisone 1 % Ointment 28.35 Gm Tube) 1 appl TOPICAL BID PRN; Protocol PRN Reason: left hand Last Admin: 06/12/22 10:29 Dose: 1 appl Ibuprofen (Ibuprofen 800 Mg Tablet) 800 mg PO Q8H PRN PRN Reason: Pain, Moderate (Pain Scale 4-6 Last Admin: 06/12/22 08:31 Dose: 800 mg Lactic Acid (Ammonium Lactate 12 % Cream 140 Gm Tube) 1 appl TOPICAL BID PRN; Protocol PRN Reason: Dry Skin Last Admin: 05/31/22 08:41 Dose: 1 appl Lorazepam (Lorazepam 1 Mg Tablet) 1 mg PO Q4H PRN PRN Reason: Anxiety Last Admin: 06/12/22 15:34 Dose: 1 mg Magnesium Hydroxide (Milk Of Magnesia 30 Ml Oral.Susp) 30 ml PO DAILY PRN PRN Reason: Constipation Last Admin: 06/09/22 08:49 Dose: 30 ml Magnesium Oxide (Magnesium Oxide 400 Mg Tablet) 400 mg PO DAILY [facility] Last Admin: 06/12/22 08:32 Dose: 400 mg Midodrine (Midodrine Hcl 5 Mg Tablet) 5 mg PO TID@0900,1300,1800 [facility] Last Admin: 06/12/22 13:19 Dose: Not Given Multi-Ingred Cream/Lotion/Oil/Oint (Mineral Oil/Petrolatum,White 106 Gm Tube) 1 appl TOPICAL BID [facility]; Protocol Last Admin: 06/12/22 08:54 Dose: 1 appl Multivitamins/Vitamin C (Multivitamin Tablet) 1 tab PO DAILY [facility] Last Admin: 06/12/22 08:33 Dose: 1 tab Nicotine (Nicotine 21 Mg Patch.Td24) 21 mg TRANSDERMA DAILY PRN PRN Reason: nicotine cravings Omeprazole (Omeprazole 20 Mg Capsule.) 20 mg PO DAILY@0630 [facility] Last Admin: 06/12/22 06:16 Dose: 20 mg Pregabalin (Pregabalin 150 Mg Capsule) 150 mg PO TID@0630,1230,2030 [facility] Last Admin: 06/12/22 12:44 Dose: 150 mg Trazodone HCl (Trazodone Hcl 50 Mg Tablet) 50 mg PO BEDTIME PRN PRN Reason: Insomnia Last Admin: 06/08/22 02:50 Dose: 50 mg Trolamine Salicylate (Trolamine Salicylate 10 % Cream 141 Gm Tube) 1 appl TOPICAL QID PRN; Protocol PRN Reason: low back pain Last Admin: 06/12/22 10:29 Dose: 1 appl Allergies Allergies Allergy/AdvReac Type Severity Reaction Status Date / Time aspirin [ASPIRIN] Allergy Unknown SENSITIVITY Verified 04/30/22 13:04 lisinopril Allergy Unknown falls, Verified 04/30/22 13:04 muscle weakness Assessment & Plan Assessment & Plan (1) Borderline personality disorder: Status: Acute Code(s): F60.3 - Borderline personality disorder Plan 05/16: continue outpt meds for now. cardiology consult for mgmt of BP and opinion on QTc mgmt. OT eval for ambulation and need for assisted. build rapport, consider mood/anxiety medication as indicated. Patient educated on: diagnosis and substance abuse 05/17: per OT: She should continue using the walker. Her biggest issue is her orthostatic hypotension and frequently syncopizes (not in past 2 weeks though). As for her ability to live independently, yes, from a purely musculoskeletal standpoint. per Cardiology: 1) reduce midodrine to 5 mg TID, give 30 min prior to meals. 2) reduce carvedilol to 12.5 BID. 3) continue fludrocortisone as is. 4) BP Q3H WA. 5) hold midodrine for SBP > 150 or DBP > 95. 6) hold fludrocortisone if SBP > 150. 7) hold carvedilol if SBP < 110. 8) replete Mg to above 2. 9) replete K to above 4. 10) QTc up to 500 ms is acceptable for now. psych: stable presentation. 05/18: BP improved. gabapentin increased to 900 QID as of today.? otherwise continue current mgmt. 05/19: continue tx. 05/20: No changes to current treatment plan.? Will adjust Advil to 800 mg as needed up to 3 times per day consistent with patient's home regimen 05/21: No changes to current treatment plan. 05/22: wrist brace for carpal tunnel complaints.? ativan 1 mg daily PRN for severe anxiety, only while hospitalized.? very wordy today, seemingly evasive about discussing substantive issues regarding her Tx here and dispo planning. 05/23: extremely denigrating and accusatory, asserting staff enjoy her suffering and are intentionally doing things to make her suffer.? demanding medical attention for myriad complaints, historical and chronic as well as more recent.? alleging withholding of care.? demanding to have a wheelchair, states she cannot ambulate due to foot pain.? PT eval for wheelchair, T/C med consult for prominent and acute complaints. 05/24: declines mtg with MD, saying she is not in the mood.? interdisciplinary mtg held re pt's care, plan to pursue more collateral, check [facility], refer for [facility] services made. 05/25: quite angry/pressured with litany of complaints today.? [facility] .? placed on 1:1 for SIB. 05/26: periods of collaboration and calm today, interspersed with the recent aggressiveness and criticality.? OBS decreased to Q5 min checks at pt request.? she reports she will begin to take her medications again in response.? denying any SIBI, states she will refrain from engaging in such. 05/28/22 Continue current regime, as she reports she believes it is beginning to work. Discussion of feeling hurt by some team interactions with her-continue to educa te re process of therapy and rationale for questions she is asked. 05/29: denies banging her head over weekend, yet RN note from 05/28 states she did so.? more pleasant today, focussed on scapegoating particular staff member rather than the class as a whole.? paranoid unnamed staff are messing with her, however, such as my messing up her meal orders, as apparently happened twice over the weekend.? divulged trauma-related nightmares and insomnia, considering prazosin (cardiology consulted). 05/30: calm, cooperative, not aggressive or critical today.? agrees to trial of wellbutrin as adjunctive anti-depressant. 05/31: calm, cooperative.? increasingly future-oriented and collaborative.? will submit [facility] application.? no side effects from medications.? continue current mgmt, increase wellbutrin after 2 more days. 06/01: pleasant, even cheery.? no complaints.? one more day of wellbutrin 150, then increase to 300.? revisit possibility of prazosin for nightmares and insomnia in PTSD. 06/02: continues pleasant and cheery.? asking for gabapentin taper and lyrica titration.? wellbutrin to be increased to 300 mg as of tomorrow.? otherwise continue current mgmt. 06/03: No med changes, pt declines to meet with T/W, denies concerns 06/04: No med changes, continue with gabapentin taper and lyrica titration 06/05: No med changes, continue with gabapentin taper and lyrica titration 06/06: DC gabapentin, double lyrica to 150 TID. 06/07: no change in presentation. not aggressive or critical. neuropathy improved with lyrica. DM contacted and encouraged to expedite case. 06/08: [facility] to meet with pt next sunday. pt c/o unsteadiness, short-term memory loss. neuropathy improved. 06/02: neuropathy continues improved. bright, social, engaging while still reporting intent to suicide. 06/10: Continue current tx plan. 06/11: Continue current tx plan. 06/12: Continue tx plan. Reason for contiued inpatient stay Substantial Risk for: harm to self Time Spent With Patient Time: Total time managing care of this patient today ____ minutes.
[2022-06-12 14:30] VITALS: BP 134/83; PULSE 94; RESP 18; O2SAT 100
[2022-06-12] MEDS: LORazepam 1 MG TABLET PO ×2 (15:34→20:18)
[2022-06-12 17:45] VITALS: BP 141/84; PULSE 82; TEMP 36.7; O2SAT 99
[2022-06-12 20:10] VITALS: BP 145/76; PULSE 91; RESP 16; TEMP 36.5; O2SAT 98
[2022-06-12] MEDS: traZODone HCL 50 MG TABLET PO (20:18)
[2022-06-13] MEDS: Omeprazole 20 MG CAPSULE.DR PO (06:18)
[2022-06-13] MEDS: Pregabalin 150 MG CAPSULE PO ×3 (06:21→20:21)
[2022-06-13 06:25] VITALS: BP 135/85; PULSE 93; RESP 18; TEMP 36.6; O2SAT 100
[2022-06-13] MEDS: Ibuprofen 800 MG TABLET PO ×2 (07:03→15:43)
[2022-06-13] MEDS: Cyclobenzaprine HCl 10 MG TABLET PO ×2 (07:06→15:43)
[2022-06-13] MEDS: LORazepam 1 MG TABLET PO ×3 (08:00→17:47)
[2022-06-13 08:40] VITALS: BP 104/55; PULSE 77; RESP 16; TEMP 36.6; O2SAT 99
[2022-06-13] MEDS: carvediloL 12.5 MG TABLET PO ×2 (08:44→20:21)
[2022-06-13] MEDS: buPROPion HCl XL 300 MG TAB.ER.24H PO (08:44)
[2022-06-13] MEDS: Multivitamin TABLET 1 TAB PO (08:45)
[2022-06-13] MEDS: Clopidogrel Bisulfate 75 MG TABLET PO (08:45)
[2022-06-13] MEDS: Magnesium Oxide 400 MG TABLET PO (08:45)
[2022-06-13] MEDS: Aspirin Enteric Coated 81 MG TABLET.DR PO (08:45)
[2022-06-13] MEDS: Atorvastatin Calcium 80 MG TABLET PO (08:45)
[2022-06-13] MEDS: DULoxetine HCl 60 MG CAPSULE.DR PO (08:45)
[2022-06-13] MEDS: Fludrocortisone Acetate 0.1 MG TABLET PO (08:45)
[2022-06-13] MEDS: Acetaminophen 325 MG TABLET 650 MG PO ×2 (14:00→20:21)
--- NOTE | 2022-06-13 14:52 | HO.PSYCHPN ---
Subjective Subjective Date of Service: 06/13/22 Reason For Visit: SI Interim History: calm, cooperative. reports lyrica seems to be working, neuropathic pain improved. however, ortho/arthritic pain now coming to the fore. agrees to trial of tylenol scheduled around the clock. looking forward to mtg with [facility] this afternoon to see what services they may be able to offer. per staff anx 7 dep 8. denies SI/HI/AVH. pleasant on eves. c/o worsening night terrors. appears to sleep well. Mental Status Exam Mental Status Exam Narrative: cooperative.? no PMA/PMR.? speech nml rate, loudness, amount, latency.? thoughts linear and logical, not aggressive or critical today.? affect full range, normo-intense, non-labile.? no SI/HI/AVH expressed. Diagnostics Vital Signs (24Hr): Vital Signs - 24 hr 06/12/22 17:45 06/12/22 20:10 06/13/22 06:25 Temperature 98.0 F 97.7 F 97.8 F Pulse Rate 82 91 93 Respiratory Rate 16 18 Blood Pressure 141/84 H 145/76 H 135/85 Pulse Oximetry 99 98 100 Oxygen Delivery Method Room Air Room Air Room Air 06/13/22 08:40 Temperature 97.9 F Pulse Rate 77 Respiratory Rate 16 Blood Pressure 104/55 L Pulse Oximetry 99 Oxygen Delivery Method Room Air BMI result Body Mass Index 30.2 Labs Results: 05/15/22 10:32 05/16/22 08:44 Imaging Radiology Impressions: ITS Impressions Venous Duplex 05/22/22 21:36 IMPRESSION: No DVT demonstrated in the left lower extremity. Brain MRI 05/26/22 13:18 IMPRESSION: There are scattered nonspecific signal changes primarily involving the periventricular white matter. There is a single focus of T2 FLAIR signal hyperintensity within the left nick with associated ill-defined enhancement on postcontrast imaging. This finding could represent a small developmental venous anomaly or capillary telangiectasia. The possibility of active demyelination in the setting of suspected demyelinating disease cannot be definitively excluded but is felt to be less likely based on the distribution of chronic white matter disease. A follow-up brain MRI without and with contrast can be obtained at 6 months to assess the stability of this finding. Otherwise no abnormal enhancement visualized elsewhere within the [id number] of this examination. No evidence of acute territorial infarct or hemorrhage. Foot X-Ray 06/02/22 12:49 IMPRESSION: Right foot: *Partial visualization of marked osteoarthritis of the tibiotalar joint. *Partial visualization of an internal fixation screw within the distal fibula. *No acute abnormalities identified. Left foot: *Chronic posttraumatic deformity of the base of the fifth metatarsal. *No acute abnormalities identified. *Moderate plantar calcaneal enthesophyte which may represent the sequela of chronic plantar fasciitis. Foot X-Ray 06/02/22 12:49 IMPRESSION: Right foot: *Partial visualization of marked osteoarthritis of the tibiotalar joint. *Partial visualization of an internal fixation screw within the distal fibula. *No acute abnormalities identified. Left foot: *Chronic posttraumatic deformity of the base of the fifth metatarsal. *No acute abnormalities identified. *Moderate plantar calcaneal enthesophyte which may represent the sequela of chronic plantar fasciitis. Medications Medications Current Medications Acetaminophen (Acetaminophen 325 Mg Tablet) 650 mg PO TID@0630,1230,2030 [facility] Last Admin: 06/13/22 14:00 Dose: 650 mg Al Hydroxide/Mg Hydroxide (Magnesium Hydrox/Alum Hydrox 30 Ml Oral.Susp) 30 ml PO Q6H PRN PRN Reason: Heartburn/Nausea Aspirin (Aspirin Enteric Coated 81 Mg Tablet.Dr) 81 mg PO DAILY [facility] Last Admin: 06/13/22 08:45 Dose: 81 mg Atorvastatin Calcium (Atorvastatin Calcium 80 Mg Tablet) 80 mg PO DAILY [facility] Last Admin: 06/13/22 08:45 Dose: 80 mg Bacitracin (Bacitracin Oint 14 Gm Tube) 1 appl TOPICAL BID [facility]; Protocol Last Admin: 06/13/22 09:44 Dose: Not Given Bacitracin (Bacitracin Oint 14 Gm Tube) 1 appl TOPICAL BID [facility]; Protocol Last Admin: 06/13/22 09:44 Dose: Not Given Bupropion HCl (Bupropion Hcl Xl 300 Mg Tab.Er.24h) 300 mg PO DAILY [facility] Last Admin: 06/13/22 08:44 Dose: 300 mg Carvedilol (Carvedilol 12.5 Mg Tablet) 12.5 mg PO BID [facility] Last Admin: 06/13/22 08:44 Dose: 12.5 mg Clopidogrel Bisulfate (Clopidogrel Bisulfate 75 Mg Tablet) 75 mg PO DAILY [facility] Last Admin: 06/13/22 08:45 Dose: 75 mg Cyclobenzaprine HCl (Cyclobenzaprine Hcl 10 Mg Tablet) 10 mg PO Q6H PRN PRN Reason: Muscle Spasm Last Admin: 06/13/22 07:06 Dose: 10 mg Duloxetine HCl (Duloxetine Hcl 60 Mg Capsule.Dr) 60 mg PO DAILY [facility] Last Admin: 06/13/22 08:45 Dose: 60 mg Fludrocortisone Acetate (Fludrocortisone Acetate 0.1 Mg Tablet) 0.1 mg PO DAILY [facility] Last Admin: 06/13/22 08:45 Dose: 0.1 mg Hydrocortisone (Hydrocortisone 1 % Ointment 28.35 Gm Tube) 1 appl TOPICAL BID PRN; Protocol PRN Reason: left hand Last Admin: 06/12/22 20:18 Dose: 1 appl Ibuprofen (Ibuprofen 800 Mg Tablet) 800 mg PO Q8H PRN PRN Reason: Pain, Moderate (Pain Scale 4-6 Last Admin: 06/13/22 07:03 Dose: 800 mg Lactic Acid (Ammonium Lactate 12 % Cream 140 Gm Tube) 1 appl TOPICAL BID PRN; Protocol PRN Reason: Dry Skin Last Admin: 05/31/22 08:41 Dose: 1 appl Lorazepam (Lorazepam 1 Mg Tablet) 1 mg PO Q4H PRN PRN Reason: Anxiety Last Admin: 06/13/22 11:52 Dose: 1 mg Magnesium Hydroxide (Milk Of Magnesia 30 Ml Oral.Susp) 30 ml PO DAILY PRN PRN Reason: Constipation Last Admin: 06/09/22 08:49 Dose: 30 ml Magnesium Oxide (Magnesium Oxide 400 Mg Tablet) 400 mg PO DAILY [facility] Last Admin: 06/13/22 08:45 Dose: 400 mg Midodrine (Midodrine Hcl 5 Mg Tablet) 5 mg PO TID@0900,1300,1800 [facility] Last Admin: 06/13/22 14:04 Dose: Not Given Multi-Ingred Cream/Lotion/Oil/Oint (Mineral Oil/Petrolatum,White 106 Gm Tube) 1 appl TOPICAL BID [facility]; Protocol Last Admin: 06/13/22 08:47 Dose: Not Given Multivitamins/Vitamin C (Multivitamin Tablet) 1 tab PO DAILY [facility] Last Admin: 06/13/22 08:45 Dose: 1 tab Nicotine (Nicotine 21 Mg Patch.Td24) 21 mg TRANSDERMA DAILY PRN PRN Reason: nicotine cravings Omeprazole (Omeprazole 20 Mg Capsule.) 20 mg PO DAILY@0630 [facility] Last Admin: 06/13/22 06:18 Dose: 20 mg Pregabalin (Pregabalin 150 Mg Capsule) 150 mg PO TID@0630,1230,2030 [facility] Last Admin: 06/13/22 11:53 Dose: 150 mg Trazodone HCl (Trazodone Hcl 50 Mg Tablet) 50 mg PO BEDTIME PRN PRN Reason: Insomnia Last Admin: 06/12/22 20:18 Dose: 50 mg Trolamine Salicylate (Trolamine Salicylate 10 % Cream 141 Gm Tube) 1 appl TOPICAL QID PRN; Protocol PRN Reason: low back pain Last Admin: 06/12/22 10:29 Dose: 1 appl Allergies Allergies Allergy/AdvReac Type Severity Reaction Status Date / Time aspirin [ASPIRIN] Allergy Unknown SENSITIVITY Verified 04/30/22 13:04 lisinopril Allergy Unknown falls, Verified 04/30/22 13:04 muscle weakness Assessment & Plan Assessment & Plan (1) Borderline personality disorder: Status: Acute Code(s): F60.3 - Borderline personality disorder Plan 05/16: continue outpt meds for now. cardiology consult for mgmt of BP and opinion on QTc mgmt. OT eval for ambulation and need for intermediate. build rapport, consider mood/anxiety medication as indicated. Patient educated on: diagnosis and substance abuse 05/17: per OT: She should continue using the walker. Her biggest issue is her orthostatic hypotension and frequently syncopizes (not in past 2 weeks though). As for her ability to live independently, yes, from a purely musculoskeletal standpoint. per Cardiology: 1) reduce midodrine to 5 mg TID, give 30 min prior to meals. 2) reduce carvedilol to 12.5 BID. 3) continue fludrocortisone as is. 4) BP Q3H WA. 5) hold midodrine for SBP > 150 or DBP > 95. 6) hold fludrocortisone if SBP > 150. 7) hold carvedilol if SBP < 110. 8) replete Mg to above 2. 9) replete K to above 4. 10) QTc up to 500 ms is acceptable for now. psych: stable presentation. 05/18: BP improved. gabapentin increased to 900 QID as of today.? otherwise continue current mgmt. 05/19: continue tx. 05/20: No changes to current treatment plan.? Will adjust Advil to 800 mg as needed up to 3 times per day consistent with patient's home regimen 05/21: No changes to current treatment plan. 05/22: wrist brace for carpal tunnel complaints.? ativan 1 mg daily PRN for severe anxiety, only while hospitalized.? very wordy today, seemingly evasive about discussing substantive issues regarding her Tx here and dispo planning. 05/23: extremely denigrating and accusatory, asserting staff enjoy her suffering and are intentionally doing things to make her suffer.? demanding medical attention for myriad complaints, historical and chronic as well as more recent.? alleging withholding of care.? demanding to have a wheelchair, states she cannot ambulate due to foot pain.? PT eval for wheelchair, T/C med consult for prominent and acute complaints. 05/24: declines mtg with MD, saying she is not in the mood.? interdisciplinary mtg held re pt's care, plan to pursue more collateral, check [facility], refer for [facility] services made. 05/25: quite angry/pressured with litany of complaints today.? [facility] .? placed on 1:1 for SIB. 05/26: periods of collaboration and calm today, interspersed with the recent aggressiveness and criticality.? OBS decreased to Q5 min checks at pt request.? she reports she will begin to take her medications again in response.? denying any SIBI, states she will refrain from engaging in such. 05/28/22 Continue current regime, as she reports she believes it is beginning to work. Discussion of feeling hurt by some team interactions with her-continue to educate re process of therapy and rationale for questions she is asked. 05/29: denies banging her head over weekend, yet RN note from 05/28 states she did so.? more pleasant today, focussed on scapegoating particular staff member rather than the class as a whole.? paranoid unnamed staff are messing with her, however, such as my messing up her meal orders, as apparently happened twice over the weekend.? divulged trauma-related nightmares and insomnia, considering prazosin (cardiology consulted). 05/30: calm, cooperative, not aggressive or critical today.? agrees to trial of wellbutrin as adjunctive anti-depressant. 05/31: calm, cooperative.? increasingly future-oriented and collaborative.? will submit [facility] application.? no side effects from medications.? continue current mgmt, increase wellbutrin after 2 more days. 06/01: pleasant, even cheery.? no complaints.? one more day of wellbutrin 150, then increase to 300.? revisit possibility of prazosin for nightmares and insomnia in PTSD. 06/02: continues pleasant and cheery.? asking for gabapentin taper and lyrica titration.? wellbutrin to be increased to 300 mg as of tomorrow.? otherwise continue current mgmt. 06/03: No med changes, pt declines to meet with T/W, denies concerns 06/04: No med changes, continue with gabapentin taper and lyrica titration 06/05: No med changes, continue with gabapentin taper and lyrica titration 06/06: DC gabapentin, double lyrica to 150 TID. 06/07: no change in presentation. not aggressive or critical. neuropathy improved with lyrica. [facility] contacted and encouraged to expedite case. 06/08: DM to meet with pt next sunday. pt c/o unsteadiness, short-term memory loss. neuropathy improved. 06/02: neuropathy continues improved. bright, social, engaging while still reporting intent to suicide. 06/10: Continue current tx plan. 06/11: Continue current tx plan. 06/12: Continue tx plan. 06/13: schedule tylenol for non-neuropathic foot pain. lyrica helpful for neuropathic foot pain. met with [facility] this afternoon. Patient educated on: diagnosis, medication risk/benefits and medical condition Reason for contiued inpatient stay Substantial Risk for: harm to self, inability to function and rapid decompensation Time Spent With Patient Time: Total time managing care of this patient today _25___ minutes.
[2022-06-13 20:15] VITALS: BP 168/98; PULSE 87; RESP 18; TEMP 36.6; O2SAT 100
[2022-06-13] MEDS: traZODone HCL 50 MG TABLET PO (21:08)
[2022-06-14 06:00] VITALS: BP 137/83; PULSE 91; RESP 16; O2SAT 100
[2022-06-14] MEDS: Pregabalin 150 MG CAPSULE PO ×3 (06:37→22:08)
[2022-06-14] MEDS: Acetaminophen 325 MG TABLET 650 MG PO ×3 (06:37→22:08)
[2022-06-14] MEDS: Omeprazole 20 MG CAPSULE.DR PO (06:37)
[2022-06-14] MEDS: LORazepam 1 MG TABLET PO (06:40)
--- NOTE | 2022-06-14 06:50 | PC.NURSE ---
Patient upset with nurse because he assisted her roommate to change her sheets. Patient felt that the nurse and roommate purposely made noise so that she would not be able to fall back to sleep at 0445.
[2022-06-14] MEDS: Clopidogrel Bisulfate 75 MG TABLET PO (08:43)
[2022-06-14] MEDS: Atorvastatin Calcium 80 MG TABLET PO (08:43)
[2022-06-14] MEDS: Cyclobenzaprine HCl 10 MG TABLET PO (08:43)
[2022-06-14] MEDS: Fludrocortisone Acetate 0.1 MG TABLET PO (08:43)
[2022-06-14] MEDS: DULoxetine HCl 60 MG CAPSULE.DR PO (08:43)
[2022-06-14] MEDS: Multivitamin TABLET 1 TAB PO (08:43)
[2022-06-14] MEDS: Aspirin Enteric Coated 81 MG TABLET.DR PO (08:43)
[2022-06-14] MEDS: buPROPion HCl XL 300 MG TAB.ER.24H PO (08:43)
[2022-06-14] MEDS: Ibuprofen 800 MG TABLET PO (08:44)
[2022-06-14] MEDS: Magnesium Oxide 400 MG TABLET PO (08:44)
[2022-06-14] MEDS: carvediloL 12.5 MG TABLET PO (08:45)
[2022-06-14] MEDS: Trolamine Salicylate 10 % Cream 141 gm Tube 1 APPL TOPICAL (10:00)
[2022-06-14] MEDS: LORazepam 0.5 MG TABLET 1.5 MG PO ×2 (12:41→22:02)
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
--- NOTE | 2022-06-14 16:57 | PC.NURSE ---
VS q 3 hours no longer needed per Dr. Pardo.
[2022-06-14] MEDS: Midodrine HCl 5 MG TABLET PO (18:33)
[2022-06-14 18:40] VITALS: BP 118/70; PULSE 89; RESP 18
[2022-06-14 21:52] VITALS: BP 109/63; PULSE 94; RESP 16; TEMP 36.5; O2SAT 97
[2022-06-15] MEDS: Acetaminophen 325 MG TABLET 650 MG PO ×3 (06:29→20:56)
[2022-06-15] MEDS: Omeprazole 20 MG CAPSULE.DR PO (06:29)
[2022-06-15] MEDS: Pregabalin 150 MG CAPSULE PO ×3 (06:29→20:57)
[2022-06-15 08:32] VITALS: BP 163/92; PULSE 99; RESP 18; TEMP 36.4; O2SAT 99
[2022-06-15] MEDS: buPROPion HCl XL 300 MG TAB.ER.24H PO (08:33)
[2022-06-15] MEDS: Clopidogrel Bisulfate 75 MG TABLET PO (08:33)
[2022-06-15] MEDS: Aspirin Enteric Coated 81 MG TABLET.DR PO (08:33)
[2022-06-15] MEDS: Ibuprofen 800 MG TABLET PO (08:33)
[2022-06-15] MEDS: carvediloL 12.5 MG TABLET PO ×2 (08:33→20:57)
[2022-06-15] MEDS: Cyclobenzaprine HCl 10 MG TABLET PO ×2 (08:34→18:21)
[2022-06-15] MEDS: DULoxetine HCl 60 MG CAPSULE.DR PO (08:35)
[2022-06-15] MEDS: Atorvastatin Calcium 80 MG TABLET PO (08:35)
[2022-06-15] MEDS: Magnesium Oxide 400 MG TABLET PO (08:36)
[2022-06-15] MEDS: LORazepam 0.5 MG TABLET 1.5 MG PO ×2 (10:07→14:32)
--- NOTE | 2022-06-15 13:41 | P.PNPSI_ITS ---
Subjective Subjective Date of Service: 06/15/22 Reason For Visit: SI Interim History: pt appears reasonably well, ambulates without difficulty to interview room. states she did not manage to get prazosin last night due to low BP. pt states she is willing to risk side effects to see if medication can help, wants to not hold medication even if her BP becomes destabilized. notes she's not going to be checking her BP multiple times a day at home, she's just going to be taking the medications. VS reviewed, parameters changed for withholding medication, making cut-off for anti-hypertensives SBP 100 rather than 110. awaiting word from [facility]. per staff, c/o back and foot pain. calm, cooperative. endorsing depression and anxiety. slept well. no HI/AVH. refuses 1:1 check-in yet l amenting she is not receiving individual therapy as an inpatient. Mental Status Exam Mental Status Exam Narrative: cooperative.? no PMA/PMR.? speech nml rate, loudness, amount, latency.? thoughts linear and logical, not aggressive or critical today.? affect full range, normo- intense, non-labile.? no SI/HI/AVH expressed. Diagnostics Vital Signs (24Hr): Vital Signs - 24 hr 06/14/22 18:40 06/14/22 21:52 06/15/22 08:32 Temperature 97.7 F 97.6 F Pulse Rate 89 94 99 Respiratory Rate 18 16 18 Blood Pressure 118/70 109/63 163/92 H Pulse Oximetry 97 99 Oxygen Delivery Method Room Air Room Air BMI result Body Mass Index 30.2 Labs Results: 05/15/22 10:32 05/16/22 08:44 Imaging Radiology Impressions: ITS Impressions Venous Duplex 05/22/22 21:36 IMPRESSION: No DVT demonstrated in the left lower extremity. Brain MRI 05/26/22 13:18 IMPRESSION: There are scattered nonspecific signal changes primarily involving the periventricular white matter. There is a single focus of T2 FLAIR signal hyperintensity within the left nick with associated ill-defined enhancement on postcontrast imaging. This finding could represent a small developmental venous anomaly or capillary telangiectasia. The possibility of active demyelination in the setting of suspected demyelinating disease cannot be definitively excluded but is felt to be less likely based on the distribution of chronic white matter disease. A follow-up brain MRI without and with contrast can be obtained at 6 months to assess the stability of this finding. Otherwise no abnormal enhancement visualized elsewhere within the [id number] of this examination. No evidence of acute territorial infarct or hemorrhage. Foot X-Ray 06/02/22 12:49 IMPRESSION: Right foot: *Partial visualization of marked osteoarthritis of the tibiotalar joint. *Partial visualization of an internal fixation screw within the distal fibula. *No acute abnormalities identified. Left foot: *Chronic posttraumatic deformity of the base of the fifth metatarsal. *No acute abnormalities identified. *Moderate plantar calcaneal enthesophyte which may represent the sequela of chronic plantar fasciitis. Foot X-Ray 06/02/22 12:49 IMPRESSION: Right foot: *Partial visualization of marked osteoarthritis of the tibiotalar joint. *Partial visualization of an internal fixation screw within the distal fibula. *No acute abnormalities identified. Left foot: *Chronic posttraumatic deformity of the base of the fifth metatarsal. *No acute abnormalities identified. *Moderate plantar calcaneal enthesophyte which may represent the sequela of chronic plantar fasciitis. Medications Medications Current Medications Acetaminophen (Acetaminophen 325 Mg Tablet) 650 mg PO TID@0630,1230,2030 [facility] Last Admin: 06/15/22 13:24 Dose: 650 mg Al Hydroxide/Mg Hydroxide (Magnesium Hydrox/Alum Hydrox 30 Ml Oral.Susp) 30 ml PO Q6H PRN PRN Reason: Heartburn/Nausea Aspirin (Aspirin Enteric Coated 81 Mg Tablet.Dr) 81 mg PO DAILY [facility] Last Admin: 06/15/22 08:33 Dose: 81 mg Atorvastatin Calcium (Atorvastatin Calcium 80 Mg Tablet) 80 mg PO DAILY [facility] Last Admin: 06/15/22 08:35 Dose: 80 mg Bacitracin (Bacitracin Oint 14 Gm Tube) 1 appl TOPICAL BID [facility]; Protocol Last Admin: 06/15/22 08:37 Dose: Not Given Bacitracin (Bacitracin Oint 14 Gm Tube) 1 appl TOPICAL BID [facility]; Protocol Last Admin: 06/15/22 08:37 Dose: Not Given Bupropion HCl (Bupropion Hcl Xl 300 Mg Tab.Er.24h) 300 mg PO DAILY [facility] Last Admin: 06/15/22 08:33 Dose: 300 mg Carvedilol (Carvedilol 12.5 Mg Tablet) 12.5 mg PO BID [facility] Last Admin: 06/15/22 08:33 Dose: 12.5 mg Clopidogrel Bisulfate (Clopidogrel Bisulfate 75 Mg Tablet) 75 mg PO DAILY [facility] Last Admin: 06/15/22 08:33 Dose: 75 mg Cyclobenzaprine HCl (Cyclobenzaprine Hcl 10 Mg Tablet) 10 mg PO Q6H PRN PRN Reason: Muscle Spasm Last Admin: 06/15/22 08:34 Dose: 10 mg Duloxetine HCl (Duloxetine Hcl 60 Mg Capsule.Dr) 60 mg PO DAILY [facility] Last Admin: 06/15/22 08:35 Dose: 60 mg Fludrocortisone Acetate (Fludrocortisone Acetate 0.1 Mg Tablet) 0.1 mg PO DAILY [facility] Last Admin: 06/15/22 08:34 Dose: Not Given Hydrocortisone (Hydrocortisone 1 % Ointment 28.35 Gm Tube) 1 appl TOPICAL BID PRN; Protocol PRN Reason: left hand Last Admin: 06/12/22 20:18 Dose: 1 appl Hydroxyzine HCl (Hydroxyzine Hcl 50 Mg Tablet) 50 mg PO BEDTIME PRN PRN Reason: Insomnia Ibuprofen (Ibuprofen 800 Mg Tablet) 800 mg PO Q8H PRN PRN Reason: Pain, Moderate (Pain Scale 4-6 Last Admin: 06/15/22 08:33 Dose: 800 mg Lactic Acid (Ammonium Lactate 12 % Cream 140 Gm Tube) 1 appl TOPICAL BID PRN; Protocol PRN Reason: Dry Skin Last Admin: 05/31/22 08:41 Dose: 1 appl Lorazepam (Lorazepam 0.5 Mg Tablet) 1.5 mg PO Q4H PRN PRN Reason: Anxiety Last Admin: 06/15/22 10:07 Dose: 1.5 mg Magnesium Hydroxide (Milk Of Magnesia 30 Ml Oral.Susp) 30 ml PO DAILY PRN PRN Reason: Constipation Last Admin: 06/09/22 08:49 Dose: 30 ml Magnesium Oxide (Magnesium Oxide 400 Mg Tablet) 400 mg PO DAILY [facility] Last Admin: 06/15/22 08:36 Dose: 400 mg Midodrine (Midodrine Hcl 5 Mg Tablet) 5 mg PO TID@0900,1300,1800 [facility] Last Admin: 06/15/22 12:50 Dose: Not Given Multi-Ingred Cream/Lotion/Oil/Oint (Mineral Oil/Petrolatum,White 106 Gm Tube) 1 appl TOPICAL BID [facility]; Protocol Last Admin: 06/15/22 08:36 Dose: Not Given Nicotine (Nicotine 21 Mg Patch.Td24) 21 mg TRANSDERMA DAILY PRN PRN Reason: nicotine cravings Omeprazole (Omeprazole 20 Mg Capsule.) 20 mg PO DAILY@0630 [facility] Last Admin: 06/15/22 06:29 Dose: 20 mg Prazosin HCl (Prazosin Hcl 1 Mg Capsule) 1 mg PO BEDTIME [facility]; Protocol Last Admin: 06/14/22 22:05 Dose: Not Given Pregabalin (Pregabalin 150 Mg Capsule) 150 mg PO TID@0630,1230,2030 [facility] Last Admin: 06/15/22 12:51 Dose: 150 mg Trolamine Salicylate (Trolamine Salicylate 10 % Cream 141 Gm Tube) 1 appl TOPICAL QID PRN; Protocol PRN Reason: low back pain Last Admin: 06/14/22 10:00 Dose: 1 appl Allergies Allergies Allergy/AdvReac Type Severity Reaction Status Date / Time aspirin [ASPIRIN] Allergy Unknown SENSITIVITY Verified 04/30/22 13:04 lisinopril Allergy Unknown falls, Verified 04/30/22 13:04 muscle weakness Assessment & Plan Assessment & Plan (1) Borderline personality disorder: Status: Acute Code(s): F60.3 - Borderline personality disorder Plan 05/16: continue outpt meds for now. cardiology consult for mgmt of BP and opinion on QTc mgmt. OT eval for ambulation and need for chcf. build rapport, consider mood/anxiety medication as indicated. Patient educated on: diagnosis and substance abuse 05/17: per OT: She should continue using the walker. Her biggest issue is her orthostatic hypotension and frequently syncopizes (not in past 2 weeks though). As for her ability to live independently, yes, from a purely musculoskeletal standpoint. per Cardiology: 1) reduce midodrine to 5 mg TID, give 30 min prior to meals. 2) reduce carvedilol to 12.5 BID. 3) continue fludrocortisone as is. 4) BP Q3H WA. 5) hold midodrine for SBP > 150 or DBP > 95. 6) hold fludrocortisone if SBP > 150. 7) hold carvedilol if SBP < 110. 8) replete Mg to above 2. 9) replete K to above 4. 10) QTc up to 500 ms is acceptable for now. psych: stable presentation. 05/18: BP improved. gabapentin increased to 900 QID as of today.? otherwise continue current mgmt. 05/19: continue tx. 05/20: No changes to current treatment plan.? Will adjust Advil to 800 mg as needed up to 3 times per day consistent with patient's home regimen 05/21: No changes to current treatment plan. 05/22: wrist brace for carpal tunnel complaints.? ativan 1 mg daily PRN for severe anxiety, only while hospitalized.? very wordy today, seemingly evasive about discussing substantive issues regarding her Tx here and dispo planning. 05/23: extremely denigrating and accusatory, asserting staff enjoy her suffering and are intentionally doing things to make her suffer.? demanding medical attention for myriad complaints, historical and chronic as well as more recent.? alleging withholding of care.? demanding to have a wheelchair, states she cannot ambulate due to foot pain.? PT eval for wheelchair, T/C med consult for prominent and acute complaints. 05/24: declines mtg with MD, saying she is not in the mood.? interdisciplinary mtg held re pt's care, plan to pursue more collateral, check [facility], refer for [facility] services made. 05/25: quite angry/pressured with litany of complaints today.? [facility] .? placed on 1:1 for SIB. 05/26: periods of collaboration and calm today, interspersed with the recent aggressiveness and criticality.? OBS decreased to Q5 min checks at pt request.? she reports she will begin to take her medications again in response.? denying any SIBI, states she will refrain from engaging in such. 05/28/22 Continue current regime, as she reports she believes it is beginning to work. Discussion of feeling hurt by some team interactions with her-continue to educate re process of therapy and rationale for questions she is asked. 05/29: denies banging her head over weekend, yet RN note from 05/28 states she did so.? more pleasant today, focussed on scapegoating particular staff member rather than the class as a whole.? paranoid unnamed staff are messing with her, however, such as my messing up her meal orders, as apparently happened twice over the weekend.? divulged trauma-related nightmares and insomnia, considering prazosin (cardiology consulted). 05/30: calm, cooperative, not aggressive or critical today.? agrees to trial of wellbutrin as adjunctive anti-depressant. 05/31: calm, cooperative.? increasingly future-oriented and collaborative.? will submit [facility] application.? no side effects from medications.? continue current mgmt, increase wellbutrin after 2 more days. 06/01: pleasant, even cheery.? no complaints.? one more day of wellbutrin 150, then increase to 300.? revisit possibility of prazosin for nightmares and insomnia in PTSD. 06/02: continues pleasant and cheery.? asking for gabapentin taper and lyrica titration.? wellbutrin to be increased to 300 mg as of tomorrow.? otherwise continue current mgmt. 06/03: No med changes, pt declines to meet with T/W, denies concerns 06/04: No med changes, continue with gabapentin taper and lyrica titration 06/05: No med changes, continue with gabapentin taper and lyrica titration 06/06: DC gabapentin, double lyrica to 150 TID. 06/07: no change in presentation. not aggressive or critical. neuropathy improved with lyrica. [facility] contacted and encouraged to expedite case. 06/08: [facility] to meet with pt next sunday. pt c/o unsteadiness, short-term memory loss. neuropathy improved. 06/02: neuropathy continues improved. bright, social, engaging while still reporting intent to suicide. 06/10: Continue current tx plan. 06/11: Continue current tx plan. 06/12: Continue tx plan. 06/13: schedule tylenol for non-neuropathic foot pain. lyrica helpful for neuropathic foot pain. met with [facility] this afternoon. 06/14: felt [facility] mtg went well, hopeful. c/o nightmares, prazosin 1 mg added at HS (per convo with cards, if there is a psychiatric indication, it may be added. there is no cardiac/circulatory system contraindication). also hydroxyzine 50 added at HS for insomnia. ativan PRNs increased to 1.5 mg each per pt request. appears bright, social, largely WNL as ever for recent weeks. 06/15: stable. changed params on HS BP meds to make it more likely she will receive them; she is advocating for such and willing to take responsibility for any negative outcome. awaiting word from [facility] on dispo options and support level. Patient educated on: medication risk/benefits Reason for contiued inpatient stay Substantial Risk for: harm to self and rapid decompensation Time Spent With Patient Time: Total time managing care of this patient today _25___ minutes.
[2022-06-15 18:19] VITALS: BP 112/74; PULSE 95
[2022-06-15] MEDS: Midodrine HCl 5 MG TABLET PO (18:21)
[2022-06-15 20:45] VITALS: BP 113/66; PULSE 88; RESP 16; TEMP 36.6; O2SAT 97
[2022-06-15] MEDS: Prazosin HCL 1 MG CAPSULE PO (20:57)
[2022-06-16] MEDS: Pregabalin 150 MG CAPSULE PO ×3 (06:02→20:48)
[2022-06-16] MEDS: Omeprazole 20 MG CAPSULE.DR PO (06:02)
[2022-06-16] MEDS: Acetaminophen 325 MG TABLET 650 MG PO ×3 (06:02→20:49)
[2022-06-16] MEDS: LORazepam 0.5 MG TABLET 1.5 MG PO ×3 (06:09→20:49)
[2022-06-16] MEDS: Ammonium Lactate 12 % Cream 140 GM TUBE 1 APPL TOPICAL (06:57)
[2022-06-16] MEDS: Trolamine Salicylate 10 % Cream 141 gm Tube 1 APPL TOPICAL (06:57)
[2022-06-16] MEDS: Mineral Oil/Petrolatum,White 106 GM Tube 1 APPL TOPICAL (06:57)
[2022-06-16 07:57] VITALS: BP 122/70; PULSE 96; RESP 17; TEMP 36.1; O2SAT 99
[2022-06-16] MEDS: Clopidogrel Bisulfate 75 MG TABLET PO (08:00)
[2022-06-16] MEDS: Aspirin Enteric Coated 81 MG TABLET.DR PO (08:01)
[2022-06-16] MEDS: Atorvastatin Calcium 80 MG TABLET PO (08:01)
[2022-06-16] MEDS: Fludrocortisone Acetate 0.1 MG TABLET PO (08:01)
[2022-06-16] MEDS: DULoxetine HCl 60 MG CAPSULE.DR PO (08:02)
[2022-06-16] MEDS: carvediloL 12.5 MG TABLET PO ×2 (08:02→20:48)
[2022-06-16] MEDS: buPROPion HCl XL 300 MG TAB.ER.24H PO (08:02)
[2022-06-16] MEDS: Magnesium Oxide 400 MG TABLET PO (08:05)
[2022-06-16] MEDS: Cyclobenzaprine HCl 10 MG TABLET PO ×2 (09:03→20:48)
[2022-06-16] MEDS: Ibuprofen 800 MG TABLET PO (09:03)
[2022-06-16] MEDS: Midodrine HCl 5 MG TABLET PO ×3 (09:03→18:35)
--- NOTE | 2022-06-16 12:22 | P.PNPSI_ITS ---
Subjective Subjective Date of Service: 06/16/22 Reason For Visit: SI Interim History: calm, cooperative. seen with SW. [facility] contact and dispo prospects reviewed. had prazosin last night without incident, still some difficulty sleeping but no nightmares. reviewed and streamlined topicals Rxs. per staff, pleasant. anx/dep 9. no SI. safe on unit. upset i nthe morning but no acting out yesterday. had prazosin last NOC. Mental Status Exam Mental Status Exam Narrative: cooperative.? no PMA/PMR.? speech nml rate, loudness, amount, latency.? thoughts linear and logical, not aggressive or critical today.? affect full range, normo- intense, non-labile.? no SI/HI/AVH expressed. Diagnostics Vital Signs (24Hr): Vital Signs - 24 hr 06/15/22 18:19 06/15/22 20:45 06/16/22 07:57 Temperature 97.8 F 97 F Pulse Rate 95 88 96 Respiratory Rate 16 17 Blood Pressure 112/74 113/66 122/70 Pulse Oximetry 97 99 Oxygen Delivery Method Room Air Room Air BMI result Body Mass Index 30.2 Labs 05/15/22 10:32 05/16/22 08:44 Imaging Radiology Impressions: ITS Impressions Venous Duplex 05/22/22 21:36 IMPRESSION: No DVT demonstrated in the left lower extremity. Brain MRI 05/26/22 13:18 IMPRESSION: There are scattered nonspecific signal changes primarily involving the periventricular white matter. There is a single focus of T2 FLAIR signal hyperintensity within the left nick with associated ill-defined enhancement on postcontrast imaging. This finding could represent a small developmental venous anomaly or capillary telangiectasia. The possibility of active demyelination in the setting of suspected demyelinating disease cannot be definitively excluded but is felt to be less likely based on the distribution of chronic white matter disease. A follow-up brain MRI without and with contrast can be obtained at 6 months to assess the stability of this finding. Otherwise no abnormal enhancement visualized elsewhere within the [id number] of this examination. No evidence of acute territorial infarct or hemorrhage. Foot X-Ray 06/02/22 12:49 IMPRESSION: Right foot: *Partial visualization of marked osteoarthritis of the tibiotalar joint. *Partial visualization of an internal fixation screw within the distal fibula. *No acute abnormalities identified. Left foot: *Chronic posttraumatic deformity of the base of the fifth metatarsal. *No acute abnormalities identified. *Moderate plantar calcaneal enthesophyte which may represent the sequela of chronic plantar fasciitis. Foot X-Ray 06/02/22 12:49 IMPRESSION: Right foot: *Partial visualization of marked osteoarthritis of the tibiotalar joint. *Partial visualization of an internal fixation screw within the distal fibula. *No acute abnormalities identified. Left foot: *Chronic posttraumatic deformity of the base of the fifth metatarsal. *No acute abnormalities identified. *Moderate plantar calcaneal enthesophyte which may represent the sequela of chronic plantar fasciitis. Medications Medications Current Medications Acetaminophen (Acetaminophen 325 Mg Tablet) 650 mg PO TID@0630,1230,2030 ON LICENSE OF [facility] Last Admin: 06/16/22 06:02 Dose: 650 mg Al Hydroxide/Mg Hydroxide (Magnesium Hydrox/Alum Hydrox 30 Ml Oral.Susp) 30 ml PO Q6H PRN PRN Reason: Heartburn/Nausea Aspirin (Aspirin Enteric Coated 81 Mg Tablet.) 81 mg PO DAILY ON LICENSE OF [facility] Last Admin: 06/16/22 08:01 Dose: 81 mg Atorvastatin Calcium (Atorvastatin Calcium 80 Mg Tablet) 80 mg PO DAILY ON LICENSE OF [facility] Last Admin: 06/16/22 08:01 Dose: 80 mg Bacitracin (Bacitracin Oint 14 Gm Tube) 1 appl TOPICAL BID ON LICENSE OF [facility]; Protocol Last Admin: 06/16/22 09:05 Dose: Not Given Bupropion HCl (Bupropion Hcl Xl 300 Mg Tab.Er.24h) 300 mg PO DAILY ON LICENSE OF [facility] Last Admin: 06/16/22 08:02 Dose: 300 mg Carvedilol (Carvedilol 12.5 Mg Tablet) 12.5 mg PO BID ON LICENSE OF [facility] Last Admin: 06/16/22 08:02 Dose: 12.5 mg Clopidogrel Bisulfate (Clopidogrel Bisulfate 75 Mg Tablet) 75 mg PO DAILY ON LICENSE OF [facility] Last Admin: 06/16/22 08:00 Dose: 75 mg Cyclobenzaprine HCl (Cyclobenzaprine Hcl 10 Mg Tablet) 10 mg PO Q6H PRN PRN Reason: Muscle Spasm Last Admin: 06/16/22 09:03 Dose: 10 mg Duloxetine HCl (Duloxetine Hcl 60 Mg Capsule.) 60 mg PO DAILY ON LICENSE OF [facility] Last Admin: 06/16/22 08:02 Dose: 60 mg Fludrocortisone Acetate (Fludrocortisone Acetate 0.1 Mg Tablet) 0.1 mg PO DAILY ON LICENSE OF [facility] Last Admin: 06/16/22 08:01 Dose: 0.1 mg Hydroxyzine HCl (Hydroxyzine Hcl 50 Mg Tablet) 50 mg PO BEDTIME PRN PRN Reason: Insomnia Ibuprofen (Ibuprofen 800 Mg Tablet) 800 mg PO Q8H PRN PRN Reason: Pain, Moderate (Pain Scale 4-6 Last Admin: 06/16/22 09:03 Dose: 800 mg Lactic Acid (Ammonium Lactate 12 % Cream 140 Gm Tube) 1 appl TOPICAL BID PRN; Protocol PRN Reason: Dry Skin Last Admin: 06/16/22 06:57 Dose: 1 appl Lorazepam (Lorazepam 0.5 Mg Tablet) 1.5 mg PO Q4H PRN PRN Reason: Anxiety Last Admin: 06/16/22 06:09 Dose: 1.5 mg Magnesium Hydroxide (Milk Of Magnesia 30 Ml Oral.Susp) 30 ml PO DAILY PRN PRN Reason: Constipation Last Admin: 06/09/22 08:49 Dose: 30 ml Magnesium Oxide (Magnesium Oxide 400 Mg Tablet) 400 mg PO DAILY ON LICENSE OF [facility] Last Admin: 06/16/22 08:05 Dose: 400 mg Midodrine (Midodrine Hcl 5 Mg Tablet) 5 mg PO TID@0900,1300,1800 ON LICENSE OF [facility] Last Admin: 06/16/22 09:03 Dose: 5 mg Nicotine (Nicotine 21 Mg Patch.Td24) 21 mg TRANSDERMA DAILY PRN PRN Reason: nicotine cravings Omeprazole (Omeprazole 20 Mg Capsule.Dr) 20 mg PO DAILY@0630 ON LICENSE OF [facility] Last Admin: 06/16/22 06:02 Dose: 20 mg Prazosin HCl (Prazosin Hcl 1 Mg Capsule) 1 mg PO BEDTIME ON LICENSE OF [facility]; Protocol Last Admin: 06/15/22 20:57 Dose: 1 mg Pregabalin (Pregabalin 150 Mg Capsule) 150 mg PO TID@0630,1230,2030 ON LICENSE OF [facility] Last Admin: 06/16/22 06:02 Dose: 150 mg Trolamine Salicylate (Trolamine Salicylate 10 % Cream 141 Gm Tube) 1 appl TOPICAL QID PRN; Protocol PRN Reason: low back pain Last Admin: 06/16/22 06:57 Dose: 1 appl Allergies Allergies Allergy/AdvReac Type Severity Reaction Status Date / Time aspirin [ASPIRIN] Allergy Unknown SENSITIVITY Verified 04/30/22 13:04 lisinopril Allergy Unknown falls, Verified 04/30/22 13:04 muscle weakness Assessment & Plan Assessment & Plan (1) Borderline personality disorder: Status: Acute Code(s): F60.3 - Borderline personality disorder Plan 05/16: continue outpt meds for now. cardiology consult for mgmt of BP and opinion on QTc mgmt. OT eval for ambulation and need for correction. build rapport, consider mood/anxiety medication as indicated. Patient educated on: diagnosis and substance abuse 05/17: per OT: She should continue using the walker. Her biggest issue is her orthostatic hypotension and frequently syncopizes (not in past 2 weeks though). As for her ability to live independently, yes, from a purely musculoskeletal standpoint. per Cardiology: 1) reduce midodrine to 5 mg TID, give 30 min prior to meals. 2) reduce carvedilol to 12.5 BID. 3) continue fludrocortisone as is. 4) BP Q3H WA. 5) hold midodrine for SBP > 150 or DBP > 95. 6) hold fludrocortisone if SBP > 150. 7) hold carvedilol if SBP < 110. 8) replete Mg to above 2. 9) replete K to above 4. 10) QTc up to 500 ms is acceptable for now. psych: stable presentation. 05/18: BP improved. gabapentin increased to 900 QID as of today.? otherwise continue current mgmt. 05/19: continue tx. 05/20: No changes to current treatment plan.? Will adjust Advil to 800 mg as needed up to 3 times per day consistent with patient's home regimen 05/21: No changes to current treatment plan. 05/22: wrist brace for carpal tunnel complaints.? ativan 1 mg daily PRN for severe anxiety, only while hospitalized.? very wordy today, seemingly evasive about discussing substantive issues regarding her Tx here and dispo planning. 05/23: extremely denigrating and accusatory, asserting staff enjoy her suffering and are intentionally doing things to make her suffer.? demanding medical attention for myriad complaints, historical and chronic as well as more recent.? alleging withholding of care.? demanding to have a wheelchair, states she cannot ambulate due to foot pain.? PT eval for wheelchair, T/C med consult for prominent and acute complaints. 05/24: declines mtg with , saying she is not in the mood.? interdisciplinary mtg held re pt's care, plan to pursue more collateral, check [facility], refer for [facility] services made. 05/25: quite angry/pressured with litany of complaints today.? [facility] .? placed on 1:1 for SIB. 05/26: periods of collaboration and calm today, interspersed with the recent aggressiveness and criticality.? OBS decreased to Q5 min checks at pt request.? she reports she will begin to take her medications again in response.? denying any SIBI, states she will refrain from engaging in such. 05/28/22 Continue current regime, as she reports she believes it is beginning to work. Discussion of feeling hurt by some team interactions with her-continue to educate re process of therapy and rationale for questions she is asked. 05/29: denies banging her head over weekend, yet RN note from 05/28 states she did so.? more pleasant today, focussed on scapegoating particular staff member rather than the class as a whole.? paranoid unnamed staff are messing with her, however, such as my messing up her meal orders, as apparently happened twice over the weekend.? divulged trauma-related nightmares and insomnia, considering prazosin (cardiology consulted). 05/30: calm, cooperative, not aggressive or critical today.? agrees to trial of wellbutrin as adjunctive anti-depressant. 05/31: calm, cooperative.? increasingly future-oriented and collaborative.? will submit [facility] application.? no side effects from medications.? continue current mgmt, increase wellbutrin after 2 more days. 06/01: pleasant, even cheery.? no complaints.? one more day of wellbutrin 150, then increase to 300.? revisit possibility of prazosin for nightmares and insomnia in PTSD. 06/02: continues pleasant and cheery.? asking for gabapentin taper and lyrica titration.? wellbutrin to be increased to 300 mg as of tomorrow.? otherwise continue current mgmt. 06/03: No med changes, pt declines to meet with T/W, denies concerns 06/04: No med changes, continue with gabapentin taper and lyrica titration 06/05: No med changes, continue with gabapentin taper and lyrica titration 06/06: DC gabapentin, double lyrica to 150 TID. 06/07: no change in presentation. not aggressive or critical. neuropathy improved with lyrica. [facility] contacted and encouraged to expedite case. 06/08: DM to meet with pt next sunday. pt c/o unsteadiness, short-term memory loss. neuropathy improved. 06/02: neuropathy continues improved. bright, social, engaging while still reporting intent to suicide. 06/10: Continue current tx plan. 06/11: Continue current tx plan. 06/12: Continue tx plan. 06/13: schedule tylenol for non-neuropathic foot pain. lyrica helpful for neuropathic foot pain. met with [facility] this afternoon. 06/14: felt [facility] mtg went well, hopeful. c/o nightmares, prazosin 1 mg added at HS (per convo with cards, if there is a psychiatric indication, it may be added. there is no cardiac/circulatory system contraindication). also hydroxyzine 50 added at HS for insomnia. ativan PRNs increased to 1.5 mg each per pt request. appears bright, social, largely WNL as ever for recent weeks. 06/15: stable. changed params on HS BP meds to make it more likely she will receive them; she is advocating for such and willing to take responsibility for any negative outcome. awaiting word from [facility] on dispo options and support level. 06/16: stable. had prazosin last night, no ill effects. no nightmares. continue current mgmt, awaiting word from [facility]. Patient educated on: medication risk/benefits Reason for contiued inpatient stay Substantial Risk for: harm to self and rapid decompensation Time Spent With Patient Time: Total time managing care of this patient today _25___ minutes.
[2022-06-16 18:33] VITALS: BP 137/71; PULSE 83; RESP 16; O2SAT 97
[2022-06-16] MEDS: Prazosin HCL 1 MG CAPSULE PO (20:47)
[2022-06-16 20:48] VITALS: BP 127/84; PULSE 80; RESP 18; TEMP 36.4; O2SAT 100
[2022-06-16] MEDS: hydrOXYzine HCL 50 MG TABLET PO (20:51)
[2022-06-17] MEDS: Acetaminophen 325 MG TABLET 650 MG PO ×3 (06:14→21:04)
[2022-06-17] MEDS: Pregabalin 150 MG CAPSULE PO ×3 (06:14→21:04)
[2022-06-17] MEDS: Omeprazole 20 MG CAPSULE.DR PO (06:14)
[2022-06-17] MEDS: Ibuprofen 800 MG TABLET PO ×2 (06:20→18:31)
[2022-06-17] MEDS: Cyclobenzaprine HCl 10 MG TABLET PO ×3 (06:20→18:30)
[2022-06-17 09:00] VITALS: BP 178/96; PULSE 74; RESP 18; TEMP 36.4; O2SAT 100
[2022-06-17] MEDS: Aspirin Enteric Coated 81 MG TABLET.DR PO (09:07)
[2022-06-17] MEDS: carvediloL 12.5 MG TABLET PO ×2 (09:07→21:04)
[2022-06-17] MEDS: Fludrocortisone Acetate 0.1 MG TABLET PO (09:07)
[2022-06-17] MEDS: Atorvastatin Calcium 80 MG TABLET PO (09:07)
[2022-06-17] MEDS: DULoxetine HCl 60 MG CAPSULE.DR PO (09:07)
[2022-06-17] MEDS: Magnesium Oxide 400 MG TABLET PO (09:07)
[2022-06-17] MEDS: buPROPion HCl XL 300 MG TAB.ER.24H PO (09:07)
[2022-06-17] MEDS: Clopidogrel Bisulfate 75 MG TABLET PO (09:07)
[2022-06-17] MEDS: Trolamine Salicylate 10 % Cream 141 gm Tube 1 APPL TOPICAL (09:09)
[2022-06-17] MEDS: Ammonium Lactate 12 % Cream 140 GM TUBE 1 APPL TOPICAL (09:09)
--- NOTE | 2022-06-17 11:15 | P.PNPSI_ITS ---
Subjective Subjective Date of Service: 06/17/22 Reason For Visit: SI Subjective Notes: Conditional Voluntary Interim History: Pt reports she is doing well. she reports sleeping and eating well. She denied SI/HI. No VH/AH. Seen socializing and attending groups. No behavioral concerns. Medication Compliance: Yes Side effects from medications: No Review of Systems Review of Systems Yes all other systems are reviewed and are negative Constitutional: Reports no additional constitutional complaints Eyes: Reports no additional eye complaints Cardiovascular: Denies chest pain, Denies syncope, Reports rapid heart rate, Denies leg edema, Denies lightheadedness, Denies Loss of Consciousness, Denies palpitations and Denies dyspnea Respiratory: Reports no additional respiratory complaints and Denies dyspnea Gastrointestinal: Reports no additional gastrointestinal complaints Musculoskeletal: Reports no additional musculoskeletal complaints and Reports abnormal gait Skin/Breast: Reports system reviewed and no additional complaints, except as docu Reports abnormal gait, Denies syncope, Reports paresthesias and Reports other (Neuropathic pain) Psychiatric: Reports anxiety, Reports mood swings and Reports suicidal ideation Endocrine: Denies palpitations Mental Status Exam Mental Status Exam Narrative: cooperative.? no PMA/PMR.? speech nml rate, loudness, amount, latency.? thoughts linear and logical, not aggressive or critical today.? affect full range, normo- intense, non-labile.? no SI/HI/AVH expressed. Diagnostics Vital Signs (24Hr): Vital Signs - 24 hr 06/18/22 21:30 Temperature 98.1 F Pulse Rate 88 Respiratory Rate 16 Blood Pressure 136/82 Pulse Oximetry 100 Oxygen Delivery Method Room Air BMI result Body Mass Index 30.2 Labs 05/15/22 10:32 05/16/22 08:44 Imaging Radiology Impressions: ITS Impressions Venous Duplex 05/22/22 21:36 IMPRESSION: No DVT demonstrated in the left lower extremity. Brain MRI 05/26/22 13:18 IMPRESSION: There are scattered nonspecific signal changes primarily involving the periventricular white matter. There is a single focus of T2 FLAIR signal hyperintensity within the left nick with associated ill-defined enhancement on postcontrast imaging. This finding could represent a small developmental venous anomaly or capillary telangiectasia. The possibility of active demyelination in the setting of suspected demyelinating disease cannot be definitively excluded but is felt to be less likely based on the distribution of chronic white matter disease. A follow-up brain MRI without and with contrast can be obtained at 6 months to assess the stability of this finding. Otherwise no abnormal enhancement visualized elsewhere within the [id number] of this examination. No evidence of acute territorial infarct or hemorrhage. Foot X-Ray 06/02/22 12:49 IMPRESSION: Right foot: *Partial visualization of marked osteoarthritis of the tibiotalar joint. *Partial visualization of an internal fixation screw within the distal fibula. *No acute abnormalities identified. Left foot: *Chronic posttraumatic deformity of the base of the fifth metatarsal. *No acute abnormalities identified. *Moderate plantar calcaneal enthesophyte which may represent the sequela of chronic plantar fasciitis. Foot X-Ray 06/02/22 12:49 IMPRESSION: Right foot: *Partial visualization of marked osteoarthritis of the tibiotalar joint. *Partial visualization of an internal fixation screw within the distal fibula. *No acute abnormalities identified. Left foot: *Chronic posttraumatic deformity of the base of the fifth metatarsal. *No acute abnormalities identified. *Moderate plantar calcaneal enthesophyte which may represent the sequela of chronic plantar fasciitis. Medications Medications Current Medications Acetaminophen (Acetaminophen 325 Mg Tablet) 650 mg PO TID@0630,1230,2030 [facility] Last Admin: 06/19/22 05:50 Dose: 650 mg Al Hydroxide/Mg Hydroxide (Magnesium Hydrox/Alum Hydrox 30 Ml Oral.Susp) 30 ml PO Q6H PRN PRN Reason: Heartburn/Nausea Aspirin (Aspirin Enteric Coated 81 Mg Tablet.Dr) 81 mg PO DAILY [facility] Last Admin: 06/18/22 08:24 Dose: 81 mg Atorvastatin Calcium (Atorvastatin Calcium 80 Mg Tablet) 80 mg PO DAILY [facility] Last Admin: 06/18/22 08:24 Dose: 80 mg Bacitracin (Bacitracin Oint 14 Gm Tube) 1 appl TOPICAL BID [facility]; Protocol Last Admin: 06/18/22 22:58 Dose: Not Given Bupropion HCl (Bupropion Hcl Xl 300 Mg Tab.Er.24h) 300 mg PO DAILY [facility] Last Admin: 06/18/22 08:24 Dose: 300 mg Carvedilol (Carvedilol 12.5 Mg Tablet) 12.5 mg PO BID [facility] Last Admin: 06/18/22 21:40 Dose: 12.5 mg Clopidogrel Bisulfate (Clopidogrel Bisulfate 75 Mg Tablet) 75 mg PO DAILY [facility] Last Admin: 06/18/22 08:24 Dose: 75 mg Cyclobenzaprine HCl (Cyclobenzaprine Hcl 10 Mg Tablet) 10 mg PO Q6H PRN PRN Reason: Muscle Spasm Last Admin: 06/18/22 16:29 Dose: 10 mg Duloxetine HCl (Duloxetine Hcl 60 Mg Capsule.Dr) 60 mg PO DAILY [facility] Last Admin: 06/18/22 08:25 Dose: 60 mg Fludrocortisone Acetate (Fludrocortisone Acetate 0.1 Mg Tablet) 0.1 mg PO DAILY [facility] Last Admin: 06/18/22 08:24 Dose: 0.1 mg Hydroxyzine HCl (Hydroxyzine Hcl 50 Mg Tablet) 50 mg PO BEDTIME PRN PRN Reason: Insomnia Last Admin: 06/17/22 21:05 Dose: 50 mg Ibuprofen (Ibuprofen 800 Mg Tablet) 800 mg PO Q8H PRN PRN Reason: Pain, Moderate (Pain Scale 4-6 Last Admin: 06/18/22 16:29 Dose: 800 mg Lactic Acid (Ammonium Lactate 12 % Cream 140 Gm Tube) 1 appl TOPICAL BID PRN; Protocol PRN Reason: Dry Skin Last Admin: 06/17/22 09:09 Dose: 1 appl Lorazepam (Lorazepam 0.5 Mg Tablet) 1.5 mg PO Q4H PRN PRN Reason: Anxiety Last Admin: 06/19/22 05:50 Dose: 1.5 mg Magnesium Hydroxide (Milk Of Magnesia 30 Ml Oral.Susp) 30 ml PO DAILY PRN PRN Reason: Constipation Last Admin: 06/09/22 08:49 Dose: 30 ml Magnesium Oxide (Magnesium Oxide 400 Mg Tablet) 400 mg PO DAILY [facility] Last Admin: 06/18/22 08:25 Dose: 400 mg Midodrine (Midodrine Hcl 5 Mg Tablet) 5 mg PO TID@0900,1300,1800 [facility] Last Admin: 06/18/22 18:58 Dose: 5 mg Nicotine (Nicotine 21 Mg Patch.Td24) 21 mg TRANSDERMA DAILY PRN PRN Reason: nicotine cravings Omeprazole (Omeprazole 20 Mg Capsule.Dr) 20 mg PO DAILY@0630 [facility] Last Admin: 06/19/22 05:50 Dose: 20 mg Prazosin HCl (Prazosin Hcl 1 Mg Capsule) 1 mg PO BEDTIME [facility]; Protocol Last Admin: 06/18/22 21:40 Dose: 1 mg Pregabalin (Pregabalin 150 Mg Capsule) 150 mg PO TID@0630,1230,2030 [facility] Last Admin: 06/19/22 05:50 Dose: 150 mg Senna/Docusate Sodium (Sennosides/Docusate Sodium Tablet) 1 tab PO BID [facility] Last Admin: 06/18/22 21:40 Dose: 1 tab Trolamine Salicylate (Trolamine Salicylate 10 % Cream 141 Gm Tube) 1 appl TOPICAL QID PRN; Protocol PRN Reason: low back pain Last Admin: 06/18/22 14:51 Dose: 1 appl Allergies Allergies Allergy/AdvReac Type Severity Reaction Status Date / Time aspirin [ASPIRIN] Allergy Unknown SENSITIVITY Verified 04/30/22 13:04 lisinopril Allergy Unknown falls, Verified 04/30/22 13:04 muscle weakness Assessment & Plan Assessment & Plan (1) Borderline personality disorder: Status: Acute Code(s): F60.3 - Borderline personality disorder Plan 05/16: continue outpt meds for now. cardiology consult for mgmt of BP and opinion on QTc mgmt. OT eval for ambulation and need for retirement. build rapport, consider mood/anxiety medication as indicated. Patient educated on: diagnosis and substance abuse 05/17: per OT: She should continue using the walker. Her biggest issue is her orthostatic hypotension and frequently syncopizes (not in past 2 weeks though). As for her ability to live independently, yes, from a purely musculoskeletal standpoint. per Cardiology: 1) reduce midodrine to 5 mg TID, give 30 min prior to meals. 2) reduce carvedilol to 12.5 BID. 3) continue fludrocortisone as is. 4) BP Q3H WA. 5) hold midodrine for SBP > 150 or DBP > 95. 6) hold fludrocortisone if SBP > 150. 7) hold carvedilol if SBP < 110. 8) replete Mg to above 2. 9) replete K to above 4. 10) QTc up to 500 ms is acceptable for now. psych: stable presentation. 05/18: BP improved. gabapentin increased to 900 QID as of today.? otherwise continue current mgmt. 05/19: continue tx. 05/20: No changes to current treatment plan.? Will adjust Advil to 800 mg as needed up to 3 times per day consistent with patient's home regimen 05/21: No changes to current treatment plan. 05/22: wrist brace for carpal tunnel complaints.? ativan 1 mg daily PRN for severe anxiety, only while hospitalized.? very wordy today, seemingly evasive about discussing substantive issues regarding her Tx here and dispo planning. 05/23: extremely denigrating and accusatory, asserting staff enjoy her suffering and are intentionally doing things to make her suffer.? demanding medical attention for myriad complaints, historical and chronic as well as more recent.? alleging withholding of care.? demanding to have a wheelchair, states she cannot ambulate due to foot pain.? PT eval for wheelchair, T/C med consult for prominent and acute complaints. 05/24: declines mtg with MD, saying she is not in the mood.? interdisciplinary mtg held re pt's care, plan to pursue more collateral, check [facility], refer for [facility] services made. 05/25: quite angry/pressured with litany of complaints today.? [facility] .? placed on 1:1 for SIB. 05/26: periods of collaboration and calm today, interspersed with the recent aggressiveness and criticality.? OBS decreased to Q5 min checks at pt request.? she reports she will begin to take her medications again in response.? denying any SIBI, states she will refrain from engaging in such. 05/28/22 Continue current regime, as she reports she believes it is beginning to work. Discussion of feeling hurt by some team interactions with her-continue to educate re process of therapy and rationale for questions she is asked. 05/29: denies banging her head over weekend, yet RN note from 05/28 states she did so.? more pleasant today, focussed on scapegoating particular staff member rather than the class as a whole.? paranoid unnamed staff are messing with her, however, such as my messing up her meal orders, as apparently happened twice over the weekend.? divulged trauma-related nightmares and insomnia, considering prazosin (cardiology consulted). 05/30: calm, cooperative, not aggressive or critical today.? agrees to trial of we llbutrin as adjunctive anti-depressant. 05/31: calm, cooperative.? increasingly future-oriented and collaborative.? will submit [facility] application.? no side effects from medications.? continue current mgmt, increase wellbutrin after 2 more days. 06/01: pleasant, even cheery.? no complaints.? one more day of wellbutrin 150, then increase to 300.? revisit possibility of prazosin for nightmares and insomnia in PTSD. 06/02: continues pleasant and cheery.? asking for gabapentin taper and lyrica ti tration.? wellbutrin to be increased to 300 mg as of tomorrow.? otherwise continue current mgmt. 06/03: No med changes, pt declines to meet with T/W, denies concerns 06/04: No med changes, continue with gabapentin taper and lyrica titration 06/05: No med changes, continue with gabapentin taper and lyrica titration 06/06: DC gabapentin, double lyrica to 150 TID. 06/07: no change in presentation. not aggressive or critical. neuropathy improved with lyrica. [facility] contacted and encouraged to expedite case. 06/08: [facility] to meet with pt next sunday. pt c/o unsteadiness, short-term memory loss. neuropathy improved. 06/02: neuropathy continues improved. bright, social, engaging while still reporting intent to suicide. 06/10: Continue current tx plan. 06/11: Continue current tx plan. 06/12: Continue tx plan. 06/13: schedule tylenol for non-neuropathic foot pain. lyrica helpful for neurop athic foot pain. met with [facility] this afternoon. 06/14: felt [facility] mtg went well, hopeful. c/o nightmares, prazosin 1 mg added at HS (per convo with cards, if there is a psychiatric indication, it may be added. there is no cardiac/circulatory system contraindication). also hydroxyzine 50 added at HS for insomnia. ativan PRNs increased to 1.5 mg each per pt request. appears bright, social, largely WNL as ever for recent weeks. 06/15: stable. changed params on HS BP meds to make it more likely she will receive them; she is advocating for such and willing to take responsibility for any negative outcome. awaiting word from [facility] on dispo options and support level. 06/16: stable. had prazosin last night, no ill effects. no nightmares. continue current mgmt, awaiting word from [facility]. 06/17 continue tx. Reason for contiued inpatient stay Substantial Risk for: inability to function Time Spent With Patient Time: Total time managing care of this patient today ____ minutes.
[2022-06-17 12:35] VITALS: BP 128/86; PULSE 86; RESP 18; TEMP 36.8; O2SAT 98
[2022-06-17] MEDS: LORazepam 0.5 MG TABLET 1.5 MG PO ×2 (12:37→18:31)
[2022-06-17] MEDS: Midodrine HCl 5 MG TABLET PO ×2 (12:40→18:31)
[2022-06-17 18:26] VITALS: BP 108/70; PULSE 88; RESP 16; TEMP 36.3; O2SAT 100
[2022-06-17 20:55] VITALS: BP 109/62; PULSE 92; RESP 18; TEMP 36.6; O2SAT 97
[2022-06-17] MEDS: Prazosin HCL 1 MG CAPSULE PO (21:00)
[2022-06-17] MEDS: hydrOXYzine HCL 50 MG TABLET PO (21:05)
[2022-06-17] MEDS: Bacitracin Oint 14 GM TUBE 1 APPL TOPICAL (22:55)
[2022-06-18] MEDS: Pregabalin 150 MG CAPSULE PO ×3 (05:54→21:40)
[2022-06-18] MEDS: Cyclobenzaprine HCl 10 MG TABLET PO ×2 (05:54→16:29)
[2022-06-18] MEDS: Acetaminophen 325 MG TABLET 650 MG PO ×3 (05:54→21:40)
[2022-06-18] MEDS: Omeprazole 20 MG CAPSULE.DR PO (05:54)
[2022-06-18] MEDS: Ibuprofen 800 MG TABLET PO ×2 (05:55→16:29)
[2022-06-18 06:00] VITALS: BP 149/84; PULSE 89; RESP 16; TEMP 36.3; O2SAT 100
[2022-06-18] MEDS: Trolamine Salicylate 10 % Cream 141 gm Tube 1 APPL TOPICAL ×2 (06:24→14:51)
[2022-06-18] MEDS: LORazepam 0.5 MG TABLET 1.5 MG PO ×3 (07:07→16:30)
[2022-06-18] MEDS: Fludrocortisone Acetate 0.1 MG TABLET PO (08:24)
[2022-06-18] MEDS: Clopidogrel Bisulfate 75 MG TABLET PO (08:24)
[2022-06-18] MEDS: Aspirin Enteric Coated 81 MG TABLET.DR PO (08:24)
[2022-06-18] MEDS: buPROPion HCl XL 300 MG TAB.ER.24H PO (08:24)
[2022-06-18] MEDS: Atorvastatin Calcium 80 MG TABLET PO (08:24)
[2022-06-18] MEDS: DULoxetine HCl 60 MG CAPSULE.DR PO (08:25)
[2022-06-18] MEDS: Magnesium Oxide 400 MG TABLET PO (08:25)
[2022-06-18] MEDS: carvediloL 12.5 MG TABLET PO ×2 (08:25→21:40)
--- NOTE | 2022-06-18 10:17 | HO.PSYCHPN ---
Subjective Subjective Date of Service: 06/18/22 Reason For Visit: SI Subjective Notes: Conditional Voluntary Interim History: Pt reports constipation, increase straining while in bathroom increasing back pain. She asks for sennakot and something stronger for pain at least for today. She was started on sennakot BID, and given one time dose of tramadol. Pt explained this is a one time dose further pain management will be decided by primary treatment team.She denies SI/HI. no behavioral concerns. Pt seen socializing with bright affect. Medication Compliance: Yes Side effects from medications: No Attending Groups: Yes Review of Systems Review of Systems Yes all other systems are reviewed and are negative Constitutional: Reports no additional constitutional complaints Eyes: Reports no additional eye complaints Cardiovascular: Denies chest pain, Denies syncope, Reports rapid heart rate, Denies leg edema, Denies lightheadedness, Denies Loss of Consciousness, Denies palpitations and Denies dyspnea Respiratory: Reports no additional respiratory complaints and Denies dyspnea Gastrointestinal: Reports no additional gastrointestinal complaints Musculoskeletal: Reports no additional musculoskeletal complaints and Reports abnormal gait Skin/Breast: Reports system reviewed and no additional complaints, except as docu Reports abnormal gait, Denies syncope, Reports paresthesias and Reports other (Neuropathic pain) Psychiatric: Reports anxiety, Reports mood swings and Reports suicidal ideation Endocrine: Denies palpitations Mental Status Exam Mental Status Exam Narrative: cooperative.? no PMA/PMR.? speech nml rate, loudness, amount, latency.? thoughts linear and logical, not aggressive or critical today.? affect full range, normo-intense, non-labile.? no SI/HI/AVH expressed. Diagnostics Vital Signs (24Hr): Vital Signs - 24 hr 06/18/22 21:30 Temperature 98.1 F Pulse Rate 88 Respiratory Rate 16 Blood Pressure 136/82 Pulse Oximetry 100 Oxygen Delivery Method Room Air BMI result Body Mass Index 30.2 Labs 05/15/22 10:32 05/16/22 08:44 Imaging Radiology Impressions: ITS Impressions Venous Duplex 05/22/22 21:36 IMPRESSION: No DVT demonstrated in the left lower extremity. Brain MRI 05/26/22 13:18 IMPRESSION: There are scattered nonspecific signal changes primarily involving the periventricular white matter. There is a single focus of T2 FLAIR signal hyperintensity within the left nick with associated ill-defined enhancement on postcontrast imaging. This finding could represent a small developmental venous anomaly or capillary telangiectasia. The possibility of active demyelination in the setting of suspected demyelinating disease cannot be definitively excluded but is felt to be less likely based on the distribution of chronic white matter disease. A follow-up brain MRI without and with contrast can be obtained at 6 months to assess the stability of this finding. Otherwise no abnormal enhancement visualized elsewhere within the [id number] of this examination. No evidence of acute territorial infarct or hemorrhage. Foot X-Ray 06/02/22 12:49 IMPRESSION: Right foot: *Partial visualization of marked osteoarthritis of the tibiotalar joint. *Partial visualization of an internal fixation screw within the distal fibula. *No acute abnormalities identified. Left foot: *Chronic posttraumatic deformity of the base of the fifth metatarsal. *No acute abnormalities identified. *Moderate plantar calcaneal enthesophyte which may represent the sequela of chronic plantar fasciitis. Foot X-Ray 06/02/22 12:49 IMPRESSION: Right foot: *Partial visualization of marked osteoarthritis of the tibiotalar joint. *Partial visualization of an internal fixation screw within the distal fibula. *No acute abnormalities identified. Left foot: *Chronic posttraumatic deformity of the base of the fifth metatarsal. *No acute abnormalities identified. *Moderate plantar calcaneal enthesophyte which may represent the sequela of chronic plantar fasciitis. Medications Medications Current Medications Acetaminophen (Acetaminophen 325 Mg Tablet) 650 mg PO TID@0630,1230,2030 [facility] Last Admin: 06/19/22 05:50 Dose: 650 mg Al Hydroxide/Mg Hydroxide (Magnesium Hydrox/Alum Hydrox 30 Ml Oral.Susp) 30 ml PO Q6H PRN PRN Reason: Heartburn/Nausea Aspirin (Aspirin Enteric Coated 81 Mg Tablet.Dr) 81 mg PO DAILY [facility] Last Admin: 06/18/22 08:24 Dose: 81 mg Atorvastatin Calcium (Atorvastatin Calcium 80 Mg Tablet) 80 mg PO DAILY [facility] Last Admin: 06/18/22 08:24 Dose: 80 mg Bacitracin (Bacitracin Oint 14 Gm Tube) 1 appl TOPICAL BID [facility]; Protocol Last Admin: 06/18/22 22:58 Dose: Not Given Bupropion HCl (Bupropion Hcl Xl 300 Mg Tab.Er.24h) 300 mg PO DAILY [facility] Last Admin: 06/18/22 08:24 Dose: 300 mg Carvedilol (Carvedilol 12.5 Mg Tablet) 12.5 mg PO BID [facility] Last Admin: 06/18/22 21:40 Dose: 12.5 mg Clopidogrel Bisulfate (Clopidogrel Bisulfate 75 Mg Tablet) 75 mg PO DAILY [facility] Last Admin: 06/18/22 08:24 Dose: 75 mg Cyclobenzaprine HCl (Cyclobenzaprine Hcl 10 Mg Tablet) 10 mg PO Q6H PRN PRN Reason: Muscle Spasm Last Admin: 06/18/22 16:29 Dose: 10 mg Duloxetine HCl (Duloxetine Hcl 60 Mg Capsule.) 60 mg PO DAILY [facility] Last Admin: 06/18/22 08:25 Dose: 60 mg Fludrocortisone Acetate (Fludrocortisone Acetate 0.1 Mg Tablet) 0.1 mg PO DAILY [facility] Last Admin: 06/18/22 08:24 Dose: 0.1 mg Hydroxyzine HCl (Hydroxyzine Hcl 50 Mg Tablet) 50 mg PO BEDTIME PRN PRN Reason: Insomnia Last Admin: 06/17/22 21:05 Dose: 50 mg Ibuprofen (Ibuprofen 800 Mg Tablet) 800 mg PO Q8H PRN PRN Reason: Pain, Moderate (Pain Scale 4-6 Last Admin: 06/18/22 16:29 Dose: 800 mg Lactic Acid (Ammonium Lactate 12 % Cream 140 Gm Tube) 1 appl TOPICAL BID PRN; Protocol PRN Reason: Dry Skin Last Admin: 06/17/22 09:09 Dose: 1 appl Lorazepam (Lorazepam 0.5 Mg Tablet) 1.5 mg PO Q4H PRN PRN Reason: Anxiety Last Admin: 06/19/22 05:50 Dose: 1.5 mg Magnesium Hydroxide (Milk Of Magnesia 30 Ml Oral.Susp) 30 ml PO DAILY PRN PRN Reason: Constipation Last Admin: 06/09/22 08:49 Dose: 30 ml Magnesium Oxide (Magnesium Oxide 400 Mg Tablet) 400 mg PO DAILY [facility] Last Admin: 06/18/22 08:25 Dose: 400 mg Midodrine (Midodrine Hcl 5 Mg Tablet) 5 mg PO TID@0900,1300,1800 [facility] Last Admin: 06/18/22 18:58 Dose: 5 mg Nicotine (Nicotine 21 Mg Patch.Td24) 21 mg TRANSDERMA DAILY PRN PRN Reason: nicotine cravings Omeprazole (Omeprazole 20 Mg Capsule.Dr) 20 mg PO DAILY@0630 [facility] Last Admin: 06/19/22 05:50 Dose: 20 mg Prazosin HCl (Prazosin Hcl 1 Mg Capsule) 1 mg PO BEDTIME [facility]; Protocol Last Admin: 06/18/22 21:40 Dose: 1 mg Pregabalin (Pregabalin 150 Mg Capsule) 150 mg PO TID@0630,1230,2030 [facility] Last Admin: 06/19/22 05:50 Dose: 150 mg Senna/Docusate Sodium (Sennosides/Docusate Sodium Tablet) 1 tab PO BID [facility] Last Admin: 06/18/22 21:40 Dose: 1 tab Trolamine Salicylate (Trolamine Salicylate 10 % Cream 141 Gm Tube) 1 appl TOPICAL QID PRN; Protocol PRN Reason: low back pain Last Admin: 06/18/22 14:51 Dose: 1 appl Allergies Allergies Allergy/AdvReac Type Severity Reaction Status Date / Time aspirin [ASPIRIN] Allergy Unknown SENSITIVITY Verified 04/30/22 13:04 lisinopril Allergy Unknown falls, Verified 04/30/22 13:04 muscle weakness Assessment & Plan Assessment & Plan (1) Borderline personality disorder: Status: Acute Code(s): F60.3 - Borderline personality disorder Plan 05/16: continue outpt meds for now. cardiology consult for mgmt of BP and opinion on QTc mgmt. OT eval for ambulation and need for retirement. build rapport, consider mood/anxiety medication as indicated. Patient educated on: diagnosis and substance abuse 05/17: per OT: She should continue using the walker. Her biggest issue is her orthostatic hypotension and frequently syncopizes (not in past 2 weeks though). As for her ability to live independently, yes, from a purely musculoskeletal standpoint. per Cardiology: 1) reduce midodrine to 5 mg TID, give 30 min prior to meals. 2) reduce carvedilol to 12.5 BID. 3) continue fludrocortisone as is. 4) BP Q3H WA. 5) hold midodrine for SBP > 150 or DBP > 95. 6) hold fludrocortisone if SBP > 150. 7) hold carvedilol if SBP < 110. 8) replete Mg to above 2. 9) replete K to above 4. 10) QTc up to 500 ms is acceptable for now. psych: stable presentation. 05/18: BP improved. gabapentin increased to 900 QID as of today.? otherwise continue current mgmt. 05/19: continue tx. 05/20: No changes to current treatment plan.? Will adjust Advil to 800 mg as needed up to 3 times per day consistent with patient's home regimen 05/21: No changes to current treatment plan. 05/22: wrist brace for carpal tunnel complaints.? ativan 1 mg daily PRN for severe anxiety, only while hospitalized.? very wordy today, seemingly evasive about discussing substantive issues regarding her Tx here and dispo planning. 05/23: extremely denigrating and accusatory, asserting staff enjoy her suffering and are intentionally doing things to make her suffer.? demanding medical attention for myriad complaints, historical and chronic as well as more recent.? alleging withholding of care.? demanding to have a wheelchair, states she cannot ambulate due to foot pain.? PT eval for wheelchair, T/C med consult for prominent and acute complaints. 05/24: declines mtg with MD, saying she is not in the mood.? interdisciplinary mtg held re pt's care, plan to pursue more collateral, check [facility], refer for [facility] services made. 05/25: quite angry/pressured with litany of complaints today.? [facility] .? placed on 1:1 for SIB. 05/26: periods of collaboration and calm today, interspersed with the recent aggressiveness and criticality.? OBS decreased to Q5 min checks at pt request.? she reports she will begin to take her medications again in response.? denying any SIBI, states she will refrain from engaging in such. 05/28/22 Continue current regime, as she reports she believes it is beginning to work. Discussion of feeling hurt by some team interactions with her-continue to educate re process of therapy and rationale for questions she is asked. 05/29: denies banging her head over weekend, yet RN note from 05/28 states she did so.? more pleasant today, focussed on scapegoating particular staff member rather than the class as a whole.? paranoid unnamed staff are messing with her, however, such as my messing up her meal orders, as apparently happened twice over the weekend.? divulged trauma-related nightmares and insomnia, considering prazosin (cardiology consulted). 05/30: calm, cooperative, not aggressive or critical today.? agrees to trial of wellbutrin as adjunctive anti-depressant. 05/31: calm, cooperative.? increasingly future-oriented and collaborative.? will submit [facility] application.? no side effects from medications.? continue current mgmt, increase wellbutrin after 2 more days. 06/01: pleasant, even cheery.? no complaints.? one more day of wellbutrin 150, then increase to 300.? revisit possibility of prazosin for nightmares and insomnia in PTSD. 06/02: continues pleasant and cheery.? asking for gabapentin taper and lyrica titration.? wellbutrin to be increased to 300 mg as of tomorrow.? otherwise continue current mgmt. 06/03: No med changes, pt declines to meet with T/W, denies concerns 06/04: No med changes, continue with gabapentin taper and lyrica titration 06/05: No med changes, continue with gabapentin taper and lyrica titration 06/06: DC gabapentin, double lyrica to 150 TID. 06/07: no change in presentation. not aggressive or critical. neuropathy improved with lyrica. [facility] contacted and encouraged to expedite case. 06/08: [facility] to meet with pt next sunday. pt c/o unsteadiness, short-term memory loss. neuropathy improved. 06/02: neuropathy continues improved. bright, social, engaging while still reporting intent to suicide. 06/10: Continue current tx plan. 06/11: Continue current tx plan. 06/12: Continue tx plan. 06/13: schedule tylenol for non-neuropathic foot pain. lyrica helpful for neuropathic foot pain. met with [facility] this afternoon. 06/14: felt [facility] mtg went well, hopeful. c/o nightmares, prazosin 1 mg added at HS (per convo with cards, if there is a psychiatric indication, it may be added. there is no cardiac/circulatory system contraindication). also hydroxyzine 50 added at HS for insomnia. ativan PRNs increased to 1.5 mg each per pt request. appears bright, social, largely WNL as ever for recent weeks. 06/15: stable. changed params on HS BP meds to make it more likely she will receive them; she is advocating for such and willing to take responsibility for any negative outcome. awaiting word from [facility] on dispo options and support level. 06/16: stable. had prazosin last night, no ill effects. no nightmares. continue current mgmt, awaiting word from [facility]. 06/17 continue tx. 06/18 continue tx. Reason for contiued inpatient stay Substantial Risk for: inability to function Time Spent With Patient Time: Total time managing care of this patient today ____ minutes.
[2022-06-18] MEDS: traMADoL HCL 50 MG TABLET 25 MG PO (13:27)
[2022-06-18] MEDS: Sennosides/Docusate Sodium TABLET 1 TAB PO ×2 (13:28→21:40)
[2022-06-18] MEDS: Midodrine HCl 5 MG TABLET PO ×2 (13:28→18:58)
[2022-06-18 21:30] VITALS: BP 136/82; PULSE 88; RESP 16; TEMP 36.7; O2SAT 100
[2022-06-18] MEDS: Prazosin HCL 1 MG CAPSULE PO (21:40)
[2022-06-19] MEDS: LORazepam 0.5 MG TABLET 1.5 MG PO ×3 (05:50→14:16)
[2022-06-19] MEDS: Acetaminophen 325 MG TABLET 650 MG PO ×3 (05:50→20:43)
[2022-06-19] MEDS: Pregabalin 150 MG CAPSULE PO ×3 (05:50→20:43)
[2022-06-19] MEDS: Omeprazole 20 MG CAPSULE.DR PO (05:50)
[2022-06-19 08:00] VITALS: BP 162/86; PULSE 86; TEMP 35.6; O2SAT 99
[2022-06-19] MEDS: Cyclobenzaprine HCl 10 MG TABLET PO ×2 (08:05→17:33)
[2022-06-19] MEDS: Clopidogrel Bisulfate 75 MG TABLET PO (08:06)
[2022-06-19] MEDS: buPROPion HCl XL 300 MG TAB.ER.24H PO (08:06)
[2022-06-19] MEDS: Aspirin Enteric Coated 81 MG TABLET.DR PO (08:06)
[2022-06-19] MEDS: Sennosides/Docusate Sodium TABLET 1 TAB PO ×2 (08:06→20:43)
[2022-06-19] MEDS: Ibuprofen 800 MG TABLET PO (08:07)
[2022-06-19] MEDS: Atorvastatin Calcium 80 MG TABLET PO (08:07)
[2022-06-19] MEDS: DULoxetine HCl 60 MG CAPSULE.DR PO (08:07)
[2022-06-19] MEDS: carvediloL 12.5 MG TABLET PO ×2 (08:08→20:42)
[2022-06-19] MEDS: Magnesium Oxide 400 MG TABLET PO (08:44)
[2022-06-19 13:51] VITALS: BP 188/103
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
[2022-06-19] MEDS: Midodrine HCl 5 MG TABLET PO (18:15)
[2022-06-19 18:18] VITALS: BP 138/82
[2022-06-19] MEDS: Prazosin HCL 1 MG CAPSULE PO (20:43)
[2022-06-20] MEDS: Pregabalin 150 MG CAPSULE PO ×3 (06:30→20:26)
[2022-06-20] MEDS: Acetaminophen 325 MG TABLET 650 MG PO ×3 (06:30→20:26)
[2022-06-20] MEDS: Omeprazole 20 MG CAPSULE.DR PO (06:30)
[2022-06-20] MEDS: Trolamine Salicylate 10 % Cream 141 gm Tube 1 APPL TOPICAL (06:57)
[2022-06-20 08:31] VITALS: BP 160/85; PULSE 88; TEMP 36.6; O2SAT 98
[2022-06-20] MEDS: LORazepam 0.5 MG TABLET 1.5 MG PO ×3 (08:33→20:46)
[2022-06-20] MEDS: Clopidogrel Bisulfate 75 MG TABLET PO (08:35)
[2022-06-20] MEDS: Aspirin Enteric Coated 81 MG TABLET.DR PO (08:35)
[2022-06-20] MEDS: Sennosides/Docusate Sodium TABLET 1 TAB PO ×2 (08:35→20:26)
[2022-06-20] MEDS: buPROPion HCl XL 300 MG TAB.ER.24H PO (08:36)
[2022-06-20] MEDS: Atorvastatin Calcium 80 MG TABLET PO (08:36)
[2022-06-20] MEDS: DULoxetine HCl 60 MG CAPSULE.DR PO (08:37)
[2022-06-20] MEDS: carvediloL 12.5 MG TABLET PO ×2 (08:37→20:26)
[2022-06-20] MEDS: Magnesium Oxide 400 MG TABLET PO (08:48)
[2022-06-20 11:08] LABS: COVID-19 Test Negative (Negative); IDNOW Serial# 9DB6401D
[2022-06-20 13:00] VITALS: BP 109/60
[2022-06-20] MEDS: Midodrine HCl 5 MG TABLET PO ×2 (13:17→17:38)
[2022-06-20] MEDS: Milk of Magnesia 30 ML ORAL.SUSP PO (13:42)
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
--- NOTE | 2022-06-20 16:09 | HO.PSYCHPN ---
Subjective Subjective Date of Service: 06/20/22 Reason For Visit: SI Interim History: calm, cooperative. sore throat, asking for COVID test. no fevers, chilss, aches however. awaiting word from [facility]. no other complaints or requests. per staff, asking for COVID test. high anxiety. slept well. appetite better. no SI/HI. safe on unit. anx/dep 9. Mental Status Exam Mental Status Exam Narrative: cooperative.? no PMA/PMR.? speech nml rate, loudness, amount, latency.? thoughts linear and logical, not aggressive or critical today.? affect full range, normo-intense, non-labile.? no SI/HI/AVH expressed. Diagnostics Vital Signs (24Hr): Vital Signs - 24 hr 06/19/22 18:18 06/20/22 08:31 06/20/22 13:00 Temperature 97.8 F Pulse Rate 88 Blood Pressure 138/82 160/85 H 109/60 Pulse Oximetry 98 Oxygen Delivery Method Room Air BMI result Body Mass Index 30.2 Labs 05/15/22 10:32 05/16/22 08:44 Labs: Laboratory Results - last 48 hr 06/20/22 10:39 COVID-19 ([facility]) Negative COVID-19 Clin Com See Note Imaging Radiology Impressions: ITS Impressions Venous Duplex 05/22/22 21:36 IMPRESSION: No DVT demonstrated in the left lower extremity. Brain MRI 05/26/22 13:18 IMPRESSION: There are scattered nonspecific signal changes primarily involving the periventricular white matter. There is a single focus of T2 FLAIR signal hyperintensity within the left nick with associated ill-defined enhancement on postcontrast imaging. This finding could represent a small developmental venous anomaly or capillary telangiectasia. The possibility of active demyelination in the setting of suspected demyelinating disease cannot be definitively excluded but is felt to be less likely based on the distribution of chronic white matter disease. A follow-up brain MRI without and with contrast can be obtained at 6 months to assess the stability of this finding. Otherwise no abnormal enhancement visualized elsewhere within the [id number] of this examination. No evidence of acute territorial infarct or hemorrhage. Foot X-Ray 06/02/22 12:49 IMPRESSION: Right foot: *Partial visualization of marked osteoarthritis of the tibiotalar joint. *Partial visualization of an internal fixation screw within the distal fibula. *No acute abnormalities identified. Left foot: *Chronic posttraumatic deformity of the base of the fifth metatarsal. *No acute abnormalities identified. *Moderate plantar calcaneal enthesophyte which may represent the sequela of chronic plantar fasciitis. Foot X-Ray 06/02/22 12:49 IMPRESSION: Right foot: *Partial visualization of marked osteoarthritis of the tibiotalar joint. *Partial visualization of an internal fixation screw within the distal fibula. *No acute abnormalities identified. Left foot: *Chronic posttraumatic deformity of the base of the fifth metatarsal. *No acute abnormalities identified. *Moderate plantar calcaneal enthesophyte which may represent the sequela of chronic plantar fasciitis. Medications Medications Current Medications Acetaminophen (Acetaminophen 325 Mg Tablet) 650 mg PO TID@0630,1230,2030 [facility] Last Admin: 06/20/22 13:16 Dose: 650 mg Al Hydroxide/Mg Hydroxide (Magnesium Hydrox/Alum Hydrox 30 Ml Oral.Susp) 30 ml PO Q6H PRN PRN Reason: Heartburn/Nausea Aspirin (Aspirin Enteric Coated 81 Mg Tablet.) 81 mg PO DAILY [facility] Last Admin: 06/20/22 08:35 Dose: 81 mg Atorvastatin Calcium (Atorvastatin Calcium 80 Mg Tablet) 80 mg PO DAILY [facility] Last Admin: 06/20/22 08:36 Dose: 80 mg Bacitracin (Bacitracin Oint 14 Gm Tube) 1 appl TOPICAL BID [facility]; Protocol Last Admin: 06/20/22 08:38 Dose: Not Given Bupropion HCl (Bupropion Hcl Xl 300 Mg Tab.Er.24h) 300 mg PO DAILY [facility] Last Admin: 06/20/22 08:36 Dose: 300 mg Carvedilol (Carvedilol 12.5 Mg Tablet) 12.5 mg PO BID [facility] Last Admin: 06/20/22 08:37 Dose: 12.5 mg Clopidogrel Bisulfate (Clopidogrel Bisulfate 75 Mg Tablet) 75 mg PO DAILY [facility] Last Admin: 06/20/22 08:35 Dose: 75 mg Cyclobenzaprine HCl (Cyclobenzaprine Hcl 10 Mg Tablet) 10 mg PO Q6H PRN PRN Reason: Muscle Spasm Last Admin: 06/19/22 17:33 Dose: 10 mg Duloxetine HCl (Duloxetine Hcl 60 Mg Capsule.) 60 mg PO DAILY [facility] Last Admin: 06/20/22 08:37 Dose: 60 mg Fludrocortisone Acetate (Fludrocortisone Acetate 0.1 Mg Tablet) 0.1 mg PO DAILY [facility] Last Admin: 06/20/22 08:38 Dose: Not Given Hydroxyzine HCl (Hydroxyzine Hcl 50 Mg Tablet) 50 mg PO BEDTIME PRN PRN Reason: Insomnia Last Admin: 06/17/22 21:05 Dose: 50 mg Ibuprofen (Ibuprofen 800 Mg Tablet) 800 mg PO Q8H PRN PRN Reason: Pain, Moderate (Pain Scale 4-6 Last Admin: 06/19/22 08:07 Dose: 800 mg Lactic Acid (Ammonium Lactate 12 % Cream 140 Gm Tube) 1 appl TOPICAL BID PRN; Protocol PRN Reason: Dry Skin Last Admin: 06/17/22 09:09 Dose: 1 appl Lorazepam (Lorazepam 0.5 Mg Tablet) 1.5 mg PO Q6H PRN PRN Reason: severe anxiety Last Admin: 06/20/22 15:00 Dose: 1.5 mg Magnesium Hydroxide (Milk Of Magnesia 30 Ml Oral.Susp) 30 ml PO DAILY PRN PRN Reason: Constipation Last Admin: 06/20/22 13:42 Dose: 30 ml Magnesium Oxide (Magnesium Oxide 400 Mg Tablet) 400 mg PO DAILY [facility] Last Admin: 06/20/22 08:48 Dose: 400 mg Midodrine (Midodrine Hcl 5 Mg Tablet) 5 mg PO TID@0900,1300,1800 [facility] Last Admin: 06/20/22 13:17 Dose: 5 mg Nicotine (Nicotine 21 Mg Patch.Td24) 21 mg TRANSDERMA DAILY PRN PRN Reason: nicotine cravings Omeprazole (Omeprazole 20 Mg Capsule.) 20 mg PO DAILY@0630 [facility] Last Admin: 06/20/22 06:30 Dose: 20 mg Prazosin HCl (Prazosin Hcl 1 Mg Capsule) 1 mg PO BEDTIME [facility]; Protocol Last Admin: 06/19/22 20:43 Dose: 1 mg Pregabalin (Pregabalin 150 Mg Capsule) 150 mg PO TID@0630,1230,2030 [facility] Last Admin: 06/20/22 13:17 Dose: 150 mg Senna/Docusate Sodium (Sennosides/Docusate Sodium Tablet) 1 tab PO BID [facility] Last Admin: 06/20/22 08:35 Dose: 1 tab Trolamine Salicylate (Trolamine Salicylate 10 % Cream 141 Gm Tube) 1 appl TOPICAL QID PRN; Protocol PRN Reason: low back pain Last Admin: 06/20/22 06:57 Dose: 1 appl Allergies Allergies Allergy/AdvReac Type Severity Reaction Status Date / Time aspirin [ASPIRIN] Allergy Unknown SENSITIVITY Verified 04/30/22 13:04 lisinopril Allergy Unknown falls, Verified 04/30/22 13:04 muscle weakness Assessment & Plan Assessment & Plan (1) Healing skin ulcer, limited to breakdown of skin: Status: Acute Code(s): L98.491 - Non-pressure chronic ulcer of skin of other sites limited to breakdown of skin Assessment and Plan: 56-year-old female with left wrist wound which is healing and fully epithelialized. Recommend topical zinc oxide to the periwound, particularly over the scarred area. Okay if zinc oxide adheres to the entire area. Small gauze such as 2x2 with spandage is to keep it covered until it is completely contracted may benefit the patient. No indication for wound care follow-up after discharge. (2) Borderline personality disorder: Status: Acute Code(s): F60.3 - Borderline personality disorder (3) Labile blood pressure: Status: Acute Code(s): R09.89 - Other specified symptoms and signs involving the circulatory and respiratory systems (4) Suicidal ideation: Status: Acute Code(s): R45.851 - Suicidal ideations (5) Depression: Status: Acute Code(s): F32.A - Depression, unspecified (6) Acute anxiety: Status: Acute Code(s): F41.9 - Anxiety disorder, unspecified Plan 05/16: continue outpt meds for now. cardiology consult for mgmt of BP and opinion on QTc mgmt. OT eval for ambulation and need for alf. build rapport, consider mood/anxiety medication as indicated. Patient educated on: diagnosis and substance abuse 05/17: per OT: She should continue using the walker. Her biggest issue is her orthostatic hypotension and frequently syncopizes (not in past 2 weeks though). As for her ability to live independently, yes, from a purely musculoskeletal standpoint. per Cardiology: 1) reduce midodrine to 5 mg TID, give 30 min prior to meals. 2) reduce carvedilol to 12.5 BID. 3) continue fludrocortisone as is. 4) BP Q3H WA. 5) hold midodrine for SBP > 150 or DBP > 95. 6) hold fludrocortisone if SBP > 150. 7) hold carvedilol if SBP < 110. 8) replete Mg to above 2. 9) replete K to above 4. 10) QTc up to 500 ms is acceptable for now. psych: stable presentation. 05/18: BP improved. gabapentin increased to 900 QID as of today.? otherwise continue current mgmt. 05/19: continue tx. 05/20: No changes to current treatment plan.? Will adjust Advil to 800 mg as needed up to 3 times per day consistent with patient's home regimen 05/21: No changes to current treatment plan. 05/22: wrist brace for carpal tunnel complaints.? ativan 1 mg daily PRN for severe anxiety, only while hospitalized.? very wordy today, seemingly evasive about discussing substantive issues regarding her Tx here and dispo planning. 05/23: extremely denigrating and accusatory, asserting staff enjoy her suffering and are intentionally doing things to make her suffer.? demanding medical attention for myriad complaints, historical and chronic as well as more recent.? alleging withholding of care.? demanding to have a wheelchair, states she cannot ambulate due to foot pain.? PT eval for wheelchair, T/C med consult for prominent and acute complaints. 05/24: declines mtg with MD, saying she is not in the mood.? interdisciplinary mtg held re pt's care, plan to pursue more collateral, check [facility], refer for [facility] services made. 05/25: quite angry/pressured with litany of complaints today.? [facility] .? placed on 1:1 for SIB. 05/26: periods of collaboration and calm today, interspersed with the recent aggressiveness and criticality.? OBS decreased to Q5 min checks at pt request.? she reports she will begin to take her medications again in response.? denying any SIBI, states she will refrain from engaging in such. 05/28/22 Continue current regime, as she reports she believes it is beginning to work. Discussion of feeling hurt by some team interactions with her-continue to educate re process of therapy and rationale for questions she is asked. 05/29: denies banging her head over weekend, yet RN note from 05/28 states she did so.? more pleasant today, focussed on scapegoating particular staff member rather than the class as a whole.? paranoid unnamed staff are messing with her, however, such as my messing up her meal orders, as apparently happened twice over the weekend.? divulged trauma-related nightmares and insomnia, considering prazosin (cardiology consulted). 05/30: calm, cooperative, not aggressive or critical today.? agrees to trial of wellbutrin as adjunctive anti-depressant. 05/31: calm, cooperative.? increasingly future-oriented and collaborative.? will submit [facility] application.? no side effects from medications.? continue current mgmt, increase wellbutrin after 2 more days. 06/01: pleasant, even cheery.? no complaints.? one more day of wellbutrin 150, then increase to 300.? revisit possibility of prazosin for nightmares and insomnia in PTSD. 06/02: continues pleasant and cheery.? asking for gabapentin taper and lyrica titration.? wellbutrin to be increased to 300 mg as of tomorrow.? otherwise continue current mgmt. 06/03: No med changes, pt declines to meet with T/W, denies concerns 06/04: No med changes, continue with gabapentin taper and lyrica titration 06/05: No med changes, continue with gabapentin taper and lyrica titration 06/06: DC gabapentin, double lyrica to 150 TID. 06/07: no change in presentation.? not aggressive or critical.? neuropathy improved with lyrica.? [facility] contacted and encouraged to expedite case. 06/08: [facility] to meet with pt next sunday.? pt c/o unsteadiness, short-term memory loss.? neuropathy improved. 06/02: neuropathy continues improved.? bright, social, engaging while still reporting intent to suicide. 06/10: Continue current tx plan. 06/11: Continue current tx plan.? 06/12: Continue tx plan. 06/13: schedule tylenol for non-neuropathic foot pain.? lyrica helpful for neuropathic foot pain.? met with [facility] this afternoon. 06/14: felt [facility] mtg went well, hopeful.? c/o nightmares, prazosin 1 mg added at HS (per convo with cards, if there is a psychiatric indication, it may be added.? there is no cardiac/circulatory system contraindication).? also hydroxyzine 50 added at HS for insomnia.? ativan PRNs increased to 1.5 mg each per pt request.? appears bright, social, largely WNL as ever for recent weeks. 06/15: stable.? changed params on HS BP meds to make it more likely she will receive them; she is advocating for such and willing to take responsibility for any negative outcome.? awaiting word from [facility] on dispo options and support level. 06/16: stable.? had prazosin last night, no ill effects.? no nightmares.? continue current mgmt, awaiting word from [facility]. 06/17 continue tx. 06/18 continue tx. 06/19: renew ativan orders.? otherwise continue current mgmt.? awaiting word from [facility] on whether or not they will accept her.? plan to DC to [facility] respite. 06/20: zinc oxide to wound. otherwise no change in mgmt. [facility] to give word tomorrow. Patient educated on: medical condition Reason for contiued inpatient stay Substantial Risk for: harm to self, inability to function and rapid decompensation Time Spent With Patient Time: Total time managing care of this patient today __25__ minutes.
[2022-06-20 17:29] VITALS: BP 121/78
[2022-06-20] MEDS: Zinc Oxide (Triple Paste) 56.7 GM OINT 1 APPL TOPICAL (19:01)
[2022-06-20 19:45] VITALS: BP 112/73; PULSE 91; RESP 16; TEMP 36.3; O2SAT 98
[2022-06-20] MEDS: Prazosin HCL 1 MG CAPSULE PO (20:26)
[2022-06-21 06:00] VITALS: BP 180/88; PULSE 94; RESP 16; TEMP 36.6; O2SAT 98
[2022-06-21] MEDS: Pregabalin 150 MG CAPSULE PO ×3 (06:10→20:35)
[2022-06-21] MEDS: Acetaminophen 325 MG TABLET 650 MG PO ×3 (06:10→20:35)
[2022-06-21] MEDS: Omeprazole 20 MG CAPSULE.DR PO (06:10)
[2022-06-21] MEDS: LORazepam 0.5 MG TABLET 1.5 MG PO ×3 (06:40→18:38)
[2022-06-21] MEDS: Ibuprofen 800 MG TABLET PO ×2 (10:19→20:35)
[2022-06-21] MEDS: DULoxetine HCl 60 MG CAPSULE.DR PO (10:19)
[2022-06-21] MEDS: buPROPion HCl XL 300 MG TAB.ER.24H PO (10:19)
[2022-06-21] MEDS: carvediloL 12.5 MG TABLET PO ×2 (10:19→20:34)
[2022-06-21] MEDS: Atorvastatin Calcium 80 MG TABLET PO (10:20)
[2022-06-21] MEDS: Aspirin Enteric Coated 81 MG TABLET.DR PO (10:20)
[2022-06-21] MEDS: Cyclobenzaprine HCl 10 MG TABLET PO ×2 (10:20→20:35)
[2022-06-21] MEDS: Sennosides/Docusate Sodium TABLET 1 TAB PO ×2 (10:21→20:34)
[2022-06-21] MEDS: Magnesium Oxide 400 MG TABLET PO (10:21)
[2022-06-21] MEDS: Clopidogrel Bisulfate 75 MG TABLET PO (10:21)
[2022-06-21] MEDS: Zinc Oxide (Triple Paste) 56.7 GM OINT 1 APPL TOPICAL (10:22)
[2022-06-21] MEDS: Midodrine HCl 5 MG TABLET PO ×2 (12:56→18:39)
--- NOTE | 2022-06-21 15:01 | P.PNPSI_ITS ---
Subjective Subjective Date of Service: 06/21/22 Reason For Visit: SI Interim History: calm, cooperative. seen alone and also with SW. recounting discouraging events from yesterday, believing she overheard staff commenting that she has been here too long. resulted in self-critical thoughts and SI, provocative statements. advised to focus on her achievements here and positive developments, such as [facility]. planning to D/C to respite and continue to work with [facility] after. per staff, bad dreams back pain. COVID NEG. attending some groups. focussed on roommate. anx/dep 10. no SI/HI/AVH. attention seeking, upset later in the day after believing she overheard staff talking about how she has been here too long. Mental Status Exam Mental Status Exam Narrative: cooperative.? no PMA/PMR.? speech nml rate, loudness, amount, latency.? thoughts linear and logical, not aggressive or critical today.? affect full range, normo- intense, non-labile.? no SI/HI/AVH expressed. Diagnostics Vital Signs (24Hr): Vital Signs - 24 hr 06/20/22 17:29 06/20/22 19:45 06/21/22 06:00 Temperature 97.4 F 97.9 F Pulse Rate 91 94 Respiratory Rate 16 16 Blood Pressure 121/78 112/73 180/88 H Pulse Oximetry 98 98 Oxygen Delivery Method Room Air Room Air BMI result Body Mass Index 30.2 Labs 05/15/22 10:32 05/16/22 08:44 Labs: Laboratory Results - last 48 hr 06/20/22 10:39 COVID-19 ([facility]) Negative COVID-19 Clin Com See Note Imaging Radiology Impressions: ITS Impressions Venous Duplex 05/22/22 21:36 IMPRESSION: No DVT demonstrated in the left lower extremity. Brain MRI 05/26/22 13:18 IMPRESSION: There are scattered nonspecific signal changes primarily involving the periventricular white matter. There is a single focus of T2 FLAIR signal hyperintensity within the left nick with associated ill-defined enhancement on postcontrast imaging. This finding could represent a small developmental venous anomaly or capillary telangiectasia. The possibility of active demyelination in the setting of suspected demyelinating disease cannot be definitively excluded but is felt to be less likely based on the distribution of chronic white matter disease. A follow-up brain MRI without and with contrast can be obtained at 6 months to assess the stability of this finding. Otherwise no abnormal enhancement visualized elsewhere within the [id number] of this examination. No evidence of acute territorial infarct or hemorrhage. Foot X-Ray 06/02/22 12:49 IMPRESSION: Right foot: *Partial visualization of marked osteoarthritis of the tibiotalar joint. *Partial visualization of an internal fixation screw within the distal fibula. *No acute abnormalities identified. Left foot: *Chronic posttraumatic deformity of the base of the fifth metatarsal. *No acute abnormalities identified. *Moderate plantar calcaneal enthesophyte which may represent the sequela of chronic plantar fasciitis. Foot X-Ray 06/02/22 12:49 IMPRESSION: Right foot: *Partial visualization of marked osteoarthritis of the tibiotalar joint. *Partial visualization of an internal fixation screw within the distal fibula. *No acute abnormalities identified. Left foot: *Chronic posttraumatic deformity of the base of the fifth metatarsal. *No acute abnormalities identified. *Moderate plantar calcaneal enthesophyte which may represent the sequela of chronic plantar fasciitis. Medications Medications Current Medications Acetaminophen (Acetaminophen 325 Mg Tablet) 650 mg PO TID@0630,1230,2030 [facility] Last Admin: 06/21/22 12:17 Dose: 650 mg Al Hydroxide/Mg Hydroxide (Magnesium Hydrox/Alum Hydrox 30 Ml Oral.Susp) 30 ml PO Q6H PRN PRN Reason: Heartburn/Nausea Aspirin (Aspirin Enteric Coated 81 Mg Tablet.) 81 mg PO DAILY [facility] Last Admin: 06/21/22 10:20 Dose: 81 mg Atorvastatin Calcium (Atorvastatin Calcium 80 Mg Tablet) 80 mg PO DAILY [facility] Last Admin: 06/21/22 10:20 Dose: 80 mg Bacitracin (Bacitracin Oint 14 Gm Tube) 1 appl TOPICAL BID [facility]; Protocol Last Admin: 06/21/22 10:22 Dose: Not Given Bupropion HCl (Bupropion Hcl Xl 300 Mg Tab.Er.24h) 300 mg PO DAILY [facility] Last Admin: 06/21/22 10:19 Dose: 300 mg Carvedilol (Carvedilol 12.5 Mg Tablet) 12.5 mg PO BID [facility] Last Admin: 06/21/22 10:19 Dose: 12.5 mg Clopidogrel Bisulfate (Clopidogrel Bisulfate 75 Mg Tablet) 75 mg PO DAILY [facility] Last Admin: 06/21/22 10:21 Dose: 75 mg Cyclobenzaprine HCl (Cyclobenzaprine Hcl 10 Mg Tablet) 10 mg PO Q6H PRN PRN Reason: Muscle Spasm Last Admin: 06/21/22 10:20 Dose: 10 mg Duloxetine HCl (Duloxetine Hcl 60 Mg Capsule.) 60 mg PO DAILY [facility] Last Admin: 06/21/22 10:19 Dose: 60 mg Fludrocortisone Acetate (Fludrocortisone Acetate 0.1 Mg Tablet) 0.1 mg PO DAILY [facility] Last Admin: 06/21/22 10:21 Dose: Not Given Hydroxyzine HCl (Hydroxyzine Hcl 50 Mg Tablet) 50 mg PO BEDTIME PRN PRN Reason: Insomnia Last Admin: 06/17/22 21:05 Dose: 50 mg Ibuprofen (Ibuprofen 800 Mg Tablet) 800 mg PO Q8H PRN PRN Reason: Pain, Moderate (Pain Scale 4-6 Last Admin: 06/21/22 10:19 Dose: 800 mg Lactic Acid (Ammonium Lactate 12 % Cream 140 Gm Tube) 1 appl TOPICAL BID PRN; Protocol PRN Reason: Dry Skin Last Admin: 06/17/22 09:09 Dose: 1 appl Lorazepam (Lorazepam 0.5 Mg Tablet) 1.5 mg PO Q6H PRN PRN Reason: severe anxiety Last Admin: 06/21/22 12:17 Dose: 1.5 mg Magnesium Hydroxide (Milk Of Magnesia 30 Ml Oral.Susp) 30 ml PO DAILY PRN PRN Reason: Constipation Last Admin: 06/20/22 13:42 Dose: 30 ml Magnesium Oxide (Magnesium Oxide 400 Mg Tablet) 400 mg PO DAILY [facility] Last Admin: 06/21/22 10:21 Dose: 400 mg Midodrine (Midodrine Hcl 5 Mg Tablet) 5 mg PO TID@0900,1300,1800 [facility] Last Admin: 06/21/22 12:56 Dose: 5 mg Nicotine (Nicotine 21 Mg Patch.Td24) 21 mg TRANSDERMA DAILY PRN PRN Reason: nicotine cravings Omeprazole (Omeprazole 20 Mg Capsule.) 20 mg PO DAILY@0630 [facility] Last Admin: 06/21/22 06:10 Dose: 20 mg Prazosin HCl (Prazosin Hcl 1 Mg Capsule) 1 mg PO BEDTIME [facility]; Protocol Last Admin: 06/20/22 20:26 Dose: 1 mg Pregabalin (Pregabalin 150 Mg Capsule) 150 mg PO TID@0630,1230,2030 [facility] Last Admin: 06/21/22 12:17 Dose: 150 mg Senna/Docusate Sodium (Sennosides/Docusate Sodium Tablet) 1 tab PO BID [facility] Last Admin: 06/21/22 10:21 Dose: 1 tab Trolamine Salicylate (Trolamine Salicylate 10 % Cream 141 Gm Tube) 1 appl TOPICAL QID PRN; Protocol PRN Reason: low back pain Last Admin: 06/20/22 06:57 Dose: 1 appl Zinc Oxide (Zinc Oxide (Triple Paste) 56.7 Gm Oint) 1 appl TOPICAL DAILY [facility]; Protocol Last Admin: 06/21/22 10:22 Dose: 1 appl Allergies Allergies Allergy/AdvReac Type Severity Reaction Status Date / Time aspirin [ASPIRIN] Allergy Unknown SENSITIVITY Verified 04/30/22 13:04 lisinopril Allergy Unknown falls, Verified 04/30/22 13:04 muscle weakness Assessment & Plan Assessment & Plan (1) Healing skin ulcer, limited to breakdown of skin: Status: Acute Code(s): L98.491 - Non-pressure chronic ulcer of skin of other sites limited to breakdown of skin Assessment and Plan: 56-year-old female with left wrist wound which is healing and fully epithelialized. Recommend topical zinc oxide to the periwound, particularly over the scarred area. Okay if zinc oxide adheres to the entire area. Small gauze such as 2x2 with spandage is to keep it covered until it is completely contracted may benefit the patient. No indication for wound care follow-up after discharge. (2) Borderline personality disorder: Status: Acute Code(s): F60.3 - Borderline personality disorder (3) Labile blood pressure: Status: Acute Code(s): R09.89 - Other specified symptoms and signs involving the circulatory and respiratory systems (4) Suicidal ideation: Status: Acute Code(s): R45.851 - Suicidal ideations (5) Depression: Status: Acute Code(s): F32.A - Depression, unspecified (6) Acute anxiety: Status: Acute Code(s): F41.9 - Anxiety disorder, unspecified Plan 05/16: continue outpt meds for now. cardiology consult for mgmt of BP and opinion on QTc mgmt. OT eval for ambulation and need for shelter. build rapport, consider mood/anxiety medication as indicated. Patient educated on: diagnosis and substance abuse 05/17: per OT: She should continue using the walker. Her biggest issue is her orthostatic hypotension and frequently syncopizes (not in past 2 weeks though). As for her ability to live independently, yes, from a purely musculoskeletal standpoint. per Cardiology: 1) reduce midodrine to 5 mg TID, give 30 min prior to meals. 2) reduce carvedilol to 12.5 BID. 3) continue fludrocortisone as is. 4) BP Q3H WA. 5) hold midodrine for SBP > 150 or DBP > 95. 6) hold fludrocortisone if SBP > 150. 7) hold carvedilol if SBP < 110. 8) replete Mg to above 2. 9) replete K to above 4. 10) QTc up to 500 ms is acceptable for now. psych: stable presentation. 05/18: BP improved. gabapentin increased to 900 QID as of today.? otherwise continue current mgmt. 05/19: continue tx. 05/20: No changes to current treatment plan.? Will adjust Advil to 800 mg as needed up to 3 times per day consistent with patient's home regimen 05/21: No changes to current treatment plan. 05/22: wrist brace for carpal tunnel complaints.? ativan 1 mg daily PRN for severe anxiety, only while hospitalized.? very wordy today, seemingly evasive about discussing substantive issues regarding her Tx here and dispo planning. 05/23: extremely denigrating and accusatory, asserting staff enjoy her suffering and are intentionally doing things to make her suffer.? demanding medical attention for myriad complaints, historical and chronic as well as more recent.? alleging withholding of care.? demanding to have a wheelchair, states she cannot ambulate due to foot pain.? PT eval for wheelchair, T/C med consult for prominent and acute complaints. 05/24: declines mtg with MD, saying she is not in the mood.? interdisciplinary mtg held re pt's care, plan to pursue more collateral, check [facility], refer for [facility] services made. 05/25: quite angry/pressured with litany of complaints today.? [facility] .? placed on 1:1 for SIB. 05/26: periods of collaboration and calm today, interspersed with the recent aggressiveness and criticality.? OBS decreased to Q5 min checks at pt request.? she reports she will begin to take her medications again in response.? denying any SIBI, states she will refrain from engaging in such. 05/28/22 Continue current regime, as she reports she believes it is beginning to work. Discussion of feeling hurt by some team interactions with her-continue to educat e re process of therapy and rationale for questions she is asked. 05/29: denies banging her head over weekend, yet RN note from 05/28 states she did so.? more pleasant today, focussed on scapegoating particular staff member rather than the class as a whole.? paranoid unnamed staff are messing with her, however, such as my messing up her meal orders, as apparently happened twice over the weekend.? divulged trauma-related nightmares and insomnia, considering prazosin (cardiology consulted). 05/30: calm, cooperative, not aggressive or critical today.? agrees to trial of wellbutrin as adjunctive anti-depressant. 05/31: calm, cooperative.? increasingly future-oriented and collaborative.? will submit [facility] application.? no side effects from medications.? continue current mgmt, increase wellbutrin after 2 more days. 06/01: pleasant, even cheery.? no complaints.? one more day of wellbutrin 150, then increase to 300.? revisit possibility of prazosin for nightmares and insomnia in PTSD. 06/02: continues pleasant and cheery.? asking for gabapentin taper and lyrica titration.? wellbutrin to be increased to 300 mg as of tomorrow.? otherwise continue current mgmt. 06/03: No med changes, pt declines to meet with T/W, denies concerns 06/04: No med changes, continue with gabapentin taper and lyrica titration 06/05: No med changes, continue with gabapentin taper and lyrica titration 06/06: DC gabapentin, double lyrica to 150 TID. 06/07: no change in presentation.? not aggressive or critical.? neuropathy improved with lyrica.? DM contacted and encouraged to expedite case. 06/08: [facility] to meet with pt next sunday.? pt c/o unsteadiness, short-term memory loss.? neuropathy improved. 06/02: neuropathy continues improved.? bright, social, engaging while still reporting intent to suicide. 06/10: Continue current tx plan. 06/11: Continue current tx plan.? 06/12: Continue tx plan. 06/13: schedule tylenol for non-neuropathic foot pain.? lyrica helpful for neuropathic foot pain.? met with [facility] this afternoon. 06/14: felt [facility] mtg went well, hopeful.? c/o nightmares, prazosin 1 mg added at HS (per convo with cards, if there is a psychiatric indication, it may be added.? there is no cardiac/circulatory system contraindication).? also hydroxyzine 50 added at HS for insomnia.? ativan PRNs increased to 1.5 mg each per pt request.? appears bright, social, largely WNL as ever for recent weeks. 06/15: stable.? changed params on HS BP meds to make it more likely she will receive them; she is advocating for such and willing to take responsibility for any negative outcome.? awaiting word from [facility] on dispo options and support level. 06/16: stable.? had prazosin last night, no ill effects.? no nightmares.? continue current mgmt, awaiting word from [facility]. 06/17 continue tx. 06/18 continue tx. 06/19: renew ativan orders.? otherwise continue current mgmt.? awaiting word from [facility] on whether or not they will accept her.? plan to DC to [facility] respite. 06/20: zinc oxide to wound. otherwise no change in mgmt. [facility] to give word tomorrow. 06/21: accepted for [facility] services. overheard what she believes was staff talking about how she has been here too long, became suicidal and made provocative statements. in discussion, wanting to focus on the positive and future rather than get stuck in the bullshit. continue current mgmt. per , potentially discharge early next week. Reason for contiued inpatient stay Substantial Risk for: inability to function and rapid decompensation Time Spent With Patient Time: Total time managing care of this patient today _35___ minutes.
[2022-06-21 18:00] VITALS: BP 138/82; PULSE 90; RESP 16; TEMP 36.6; O2SAT 98
[2022-06-21 20:20] VITALS: BP 122/72; PULSE 88; RESP 18; O2SAT 99
[2022-06-21] MEDS: Prazosin HCL 1 MG CAPSULE PO (20:35)
[2022-06-22 06:00] VITALS: BP 119/89; PULSE 86; RESP 18; TEMP 36.6; O2SAT 98
[2022-06-22] MEDS: Zinc Oxide (Triple Paste) 56.7 GM OINT 1 APPL TOPICAL (06:00)
[2022-06-22] MEDS: Omeprazole 20 MG CAPSULE.DR PO (06:05)
[2022-06-22] MEDS: Acetaminophen 325 MG TABLET 650 MG PO ×2 (06:05→22:10)
[2022-06-22] MEDS: Ibuprofen 800 MG TABLET PO ×2 (06:05→18:53)
[2022-06-22] MEDS: Cyclobenzaprine HCl 10 MG TABLET PO ×3 (06:05→18:53)
[2022-06-22] MEDS: Pregabalin 150 MG CAPSULE PO ×3 (06:40→22:10)
[2022-06-22] MEDS: LORazepam 0.5 MG TABLET 1.5 MG PO ×2 (06:40→12:26)
[2022-06-22] MEDS: carvediloL 12.5 MG TABLET PO ×2 (09:05→22:09)
[2022-06-22] MEDS: buPROPion HCl XL 300 MG TAB.ER.24H PO (09:05)
[2022-06-22] MEDS: Sennosides/Docusate Sodium TABLET 1 TAB PO ×2 (09:06→22:10)
[2022-06-22] MEDS: Aspirin Enteric Coated 81 MG TABLET.DR PO (09:06)
[2022-06-22] MEDS: Trolamine Salicylate 10 % Cream 141 gm Tube 1 APPL TOPICAL (09:06)
[2022-06-22] MEDS: Clopidogrel Bisulfate 75 MG TABLET PO (09:06)
[2022-06-22] MEDS: DULoxetine HCl 60 MG CAPSULE.DR PO (09:06)
[2022-06-22] MEDS: Atorvastatin Calcium 80 MG TABLET PO (09:06)
[2022-06-22] MEDS: Fludrocortisone Acetate 0.1 MG TABLET PO (09:06)
[2022-06-22] MEDS: Magnesium Oxide 400 MG TABLET PO (09:06)
[2022-06-22] MEDS: Midodrine HCl 5 MG TABLET PO ×3 (09:09→18:53)
--- NOTE | 2022-06-22 14:50 | P.PNPSI_ITS ---
Subjective Subjective Date of Service: 06/22/22 Reason For Visit: SI Interim History: calm, cooperative, bright and cheery. seems to be optimistic about discharge next week to respite, planning to meet with [facility] staff on sunday morning. reports sleep is better, pain is better. per staff, c/o increased anxiety and depression. on the fence about signing a 3-day. slept about 7 hours. Mental Status Exam Mental Status Exam Narrative: cooperative.? no PMA/PMR.? speech nml rate, loudness, amount, latency.? thoughts linear and logical, not aggressive or critical today.? affect full range, normo- intense, non-labile.? no SI/HI/AVH expressed. Diagnostics Vital Signs (24Hr): Vital Signs - 24 hr 06/21/22 18:00 06/21/22 20:20 06/22/22 06:00 Temperature 97.8 F 97.8 F Pulse Rate 90 88 86 Respiratory Rate 16 18 18 Blood Pressure 138/82 122/72 119/89 Pulse Oximetry 98 99 98 Oxygen Delivery Method Room Air Room Air Room Air BMI result Body Mass Index 30.2 Labs 05/15/22 10:32 05/16/22 08:44 Imaging Radiology Impressions: ITS Impressions Venous Duplex 05/22/22 21:36 IMPRESSION: No DVT demonstrated in the left lower extremity. Brain MRI 05/26/22 13:18 IMPRESSION: There are scattered nonspecific signal changes primarily involving the periventricular white matter. There is a single focus of T2 FLAIR signal hyperintensity within the left nick with associated ill-defined enhancement on postcontrast imaging. This finding could represent a small developmental venous anomaly or capillary telangiectasia. The possibility of active demyelination in the setting of suspected demyelinating disease cannot be definitively excluded but is felt to be less likely based on the distribution of chronic white matter disease. A follow-up brain MRI without and with contrast can be obtained at 6 months to assess the stability of this finding. Otherwise no abnormal enhancement visualized elsewhere within the [id number] of this examination. No evidence of acute territorial infarct or hemorrhage. Foot X-Ray 06/02/22 12:49 IMPRESSION: Right foot: *Partial visualization of marked osteoarthritis of the tibiotalar joint. *Partial visualization of an internal fixation screw within the distal fibula. *No acute abnormalities identified. Left foot: *Chronic posttraumatic deformity of the base of the fifth metatarsal. *No acute abnormalities identified. *Moderate plantar calcaneal enthesophyte which may represent the sequela of chronic plantar fasciitis. Foot X-Ray 06/02/22 12:49 IMPRESSION: Right foot: *Partial visualization of marked osteoarthritis of the tibiotalar joint. *Partial visualization of an internal fixation screw within the distal fibula. *No acute abnormalities identified. Left foot: *Chronic posttraumatic deformity of the base of the fifth metatarsal. *No acute abnormalities identified. *Moderate plantar calcaneal enthesophyte which may represent the sequela of chronic plantar fasciitis. Medications Medications Current Medications Acetaminophen (Acetaminophen 325 Mg Tablet) 650 mg PO TID@0630,1230,2030 [facility] Last Admin: 06/22/22 12:32 Dose: Not Given Al Hydroxide/Mg Hydroxide (Magnesium Hydrox/Alum Hydrox 30 Ml Oral.Susp) 30 ml PO Q6H PRN PRN Reason: Heartburn/Nausea Aspirin (Aspirin Enteric Coated 81 Mg Tablet.) 81 mg PO DAILY [facility] Last Admin: 06/22/22 09:06 Dose: 81 mg Atorvastatin Calcium (Atorvastatin Calcium 80 Mg Tablet) 80 mg PO DAILY [facility] Last Admin: 06/22/22 09:06 Dose: 80 mg Bupropion HCl (Bupropion Hcl Xl 300 Mg Tab.Er.24h) 300 mg PO DAILY [facility] Last Admin: 06/22/22 09:05 Dose: 300 mg Carvedilol (Carvedilol 12.5 Mg Tablet) 12.5 mg PO BID [facility] Last Admin: 06/22/22 09:05 Dose: 12.5 mg Clopidogrel Bisulfate (Clopidogrel Bisulfate 75 Mg Tablet) 75 mg PO DAILY [facility] Last Admin: 06/22/22 09:06 Dose: 75 mg Cyclobenzaprine HCl (Cyclobenzaprine Hcl 10 Mg Tablet) 10 mg PO Q6H PRN PRN Reason: Muscle Spasm Last Admin: 06/22/22 12:32 Dose: 10 mg Duloxetine HCl (Duloxetine Hcl 60 Mg Capsule.) 60 mg PO DAILY [facility] Last Admin: 06/22/22 09:06 Dose: 60 mg Fludrocortisone Acetate (Fludrocortisone Acetate 0.1 Mg Tablet) 0.1 mg PO DAILY [facility] Last Admin: 06/22/22 09:06 Dose: 0.1 mg Hydroxyzine HCl (Hydroxyzine Hcl 50 Mg Tablet) 50 mg PO BEDTIME PRN PRN Reason: Insomnia Last Admin: 06/17/22 21:05 Dose: 50 mg Ibuprofen (Ibuprofen 800 Mg Tablet) 800 mg PO Q8H PRN PRN Reason: Pain, Moderate (Pain Scale 4-6 Last Admin: 06/22/22 06:05 Dose: 800 mg Lactic Acid (Ammonium Lactate 12 % Cream 140 Gm Tube) 1 appl TOPICAL BID PRN; Protocol PRN Reason: Dry Skin Last Admin: 06/17/22 09:09 Dose: 1 appl Lorazepam (Lorazepam 1 Mg Tablet) 1 mg PO Q6H PRN PRN Reason: severe anxiety Magnesium Hydroxide (Milk Of Magnesia 30 Ml Oral.Susp) 30 ml PO DAILY PRN PRN Reason: Constipation Last Admin: 06/20/22 13:42 Dose: 30 ml Magnesium Oxide (Magnesium Oxide 400 Mg Tablet) 400 mg PO DAILY [facility] Last Admin: 06/22/22 09:06 Dose: 400 mg Midodrine (Midodrine Hcl 5 Mg Tablet) 5 mg PO TID@0900,1300,1800 [facility] Last Admin: 06/22/22 13:50 Dose: 5 mg Nicotine (Nicotine 21 Mg Patch.Td24) 21 mg TRANSDERMA DAILY PRN PRN Reason: nicotine cravings Omeprazole (Omeprazole 20 Mg Capsule.Dr) 20 mg PO DAILY@0630 [facility] Last Admin: 06/22/22 06:05 Dose: 20 mg Prazosin HCl (Prazosin Hcl 1 Mg Capsule) 1 mg PO BEDTIME [facility]; Protocol Last Admin: 06/21/22 20:35 Dose: 1 mg Pregabalin (Pregabalin 150 Mg Capsule) 150 mg PO TID@0630,1230,2030 [facility] Last Admin: 06/22/22 12:26 Dose: 150 mg Senna/Docusate Sodium (Sennosides/Docusate Sodium Tablet) 1 tab PO BID [facility] Last Admin: 06/22/22 09:06 Dose: 1 tab Trolamine Salicylate (Trolamine Salicylate 10 % Cream 141 Gm Tube) 1 appl TOPICAL QID PRN; Protocol PRN Reason: low back pain Last Admin: 06/22/22 09:06 Dose: 1 appl Zinc Oxide (Zinc Oxide (Triple Paste) 56.7 Gm Oint) 1 appl TOPICAL DAILY [facility]; Protocol Last Admin: 06/22/22 06:00 Dose: 1 appl Allergies Allergies Allergy/AdvReac Type Severity Reaction Status Date / Time aspirin [ASPIRIN] Allergy Unknown SENSITIVITY Verified 04/30/22 13:04 lisinopril Allergy Unknown falls, Verified 04/30/22 13:04 muscle weakness Assessment & Plan Assessment & Plan (1) Healing skin ulcer, limited to breakdown of skin: Status: Acute Code(s): L98.491 - Non-pressure chronic ulcer of skin of other sites limited to breakdown of skin Assessment and Plan: 56-year-old female with left wrist wound which is healing and fully epi thelialized. Recommend topical zinc oxide to the periwound, particularly over the scarred area. Okay if zinc oxide adheres to the entire area. Small gauze such as 2x2 with spandage is to keep it covered until it is completely contracted may benefit the patient. No indication for wound care follow-up after discharge. (2) Borderline personality disorder: Status: Acute Code(s): F60.3 - Borderline personality disorder (3) Labile blood pressure: Status: Acute Code(s): R09.89 - Other specified symptoms and signs involving the circulatory and respiratory systems (4) Suicidal ideation: Status: Acute Code(s): R45.851 - Suicidal ideations (5) Depression: Status: Acute Code(s): F32.A - Depression, unspecified (6) Acute anxiety: Status: Acute Code(s): F41.9 - Anxiety disorder, unspecified Plan 05/16: continue outpt meds for now. cardiology consult for mgmt of BP and opinion on QTc mgmt. OT eval for ambulation and need for senior living. build rapport, consider mood/anxiety medication as indicated. Patient educated on: diagnosis and substance abuse 05/17: per OT: She should continue using the walker. Her biggest issue is her orthostatic hypotension and frequently syncopizes (not in past 2 weeks though). As for her ability to live independently, yes, from a purely musculoskeletal standpoint. per Cardiology: 1) reduce midodrine to 5 mg TID, give 30 min prior to meals. 2) reduce carvedilol to 12.5 BID. 3) continue fludrocortisone as is. 4) BP Q3H WA. 5) hold midodrine for SBP > 150 or DBP > 95. 6) hold fludrocortisone if SBP > 150. 7) hold carvedilol if SBP < 110. 8) replete Mg to above 2. 9) replete K to above 4. 10) QTc up to 500 ms is acceptable for now. psych: stable presentation. 05/18: BP improved. gabapentin increased to 900 QID as of today.? otherwise continue current mgmt. 05/19: continue tx. 05/20: No changes to current treatment plan.? Will adjust Advil to 800 mg as needed up to 3 times per day consistent with patient's home regimen 05/21: No changes to current treatment plan. 05/22: wrist brace for carpal tunnel complaints.? ativan 1 mg daily PRN for severe anxiety, only while hospitalized.? very wordy today, seemingly evasive about discussing substantive issues regarding her Tx here and dispo planning. 05/23: extremely denigrating and accusatory, asserting staff enjoy her suffering and are intentionally doing things to make her suffer.? demanding medical attention for myriad complaints, historical and chronic as well as more recent.? alleging withholding of care.? demanding to have a wheelchair, states she cannot ambulate due to foot pain.? PT eval for wheelchair, T/C med consult for prominent and acute complaints. 05/24: declines mtg with MD, saying she is not in the mood.? interdisciplinary mtg held re pt's care, plan to pursue more collateral, check [facility], refer for [facility] services made. 05/25: quite angry/pressured with litany of complaints today.? [facility] /.? placed on 1:1 for SIB. 05/26: periods of collaboration and calm today, interspersed with the recent aggressiveness and criticality.? OBS decreased to Q5 min checks at pt request.? she reports she will begin to take her medications again in response.? denying any SIBI, states she will refrain from engaging in such. 05/28/22 Continue current regime, as she reports she believes it is beginning to work. Discussion of feeling hurt by some team interactions with her-continue to educate re process of therapy and rationale for questions she is asked. 05/29: denies banging her head over weekend, yet RN note from 05/28 states she did so.? more pleasant today, focussed on scapegoating particular staff member rather than the class as a whole.? paranoid unnamed staff are messing with her, however, such as my messing up her meal orders, as apparently happened twice over the weekend.? divulged trauma-related nightmares and insomnia, considering prazosin (cardiology consulted). 05/30: calm, cooperative, not aggressive or critical today.? agrees to trial of well butrin as adjunctive anti-depressant. 05/31: calm, cooperative.? increasingly future-oriented and collaborative.? will submit [facility] application.? no side effects from medications.? continue current mgmt, increase wellbutrin after 2 more days. 06/01: pleasant, even cheery.? no complaints.? one more day of wellbutrin 150, then increase to 300.? revisit possibility of prazosin for nightmares and insomnia in PTSD. 06/02: continues pleasant and cheery.? asking for gabapentin taper and lyrica titr ation.? wellbutrin to be increased to 300 mg as of tomorrow.? otherwise continue current mgmt. 06/03: No med changes, pt declines to meet with T/W, denies concerns 06/04: No med changes, continue with gabapentin taper and lyrica titration 06/05: No med changes, continue with gabapentin taper and lyrica titration 06/06: DC gabapentin, double lyrica to 150 TID. 06/07: no change in presentation.? not aggressive or critical.? neuropathy improved with lyrica.? DM contacted and encouraged to expedite case. 06/08: DM to meet with pt next sunday.? pt c/o unsteadiness, short-term memory loss.? neuropathy improved. 06/02: neuropathy continues improved.? bright, social, engaging while still reporting intent to suicide. 06/10: Continue current tx plan. 06/11: Continue current tx plan.? 06/12: Continue tx plan. 06/13: schedule tylenol for non-neuropathic foot pain.? lyrica helpful for neuropathic foot pain.? met with [facility] this afternoon. 06/14: felt [facility] mtg went well, hopeful.? c/o nightmares, prazosin 1 mg added at HS (per convo with cards, if there is a psychiatric indication, it may be added.? there is no cardiac/circulatory system contraindication).? also hydroxyzine 50 added at HS for insomnia.? ativan PRNs increased to 1.5 mg each per pt request.? appears bright, social, largely WNL as ever for recent weeks. 06/15: stable.? changed params on HS BP meds to make it more likely she will receive them; she is advocating for such and willing to take responsibility for any negative outcome.? awaiting word from [facility] on dispo options and support level. 06/16: stable.? had prazosin last night, no ill effects.? no nightmares.? continue current mgmt, awaiting word from [facility]. 06/17 continue tx. 06/18 continue tx. 06/19: renew ativan orders.? otherwise continue current mgmt.? awaiting word from [facility] on whether or not they will accept her.? plan to DC to [facility] respite. 06/20: zinc oxide to wound. otherwise no change in mgmt. [facility] to give word tomorrow. 06/21: accepted for [facility] services. overheard what she believes was staff talking about how she has been here too long, became suicidal and made provocative statements. in discussion, wanting to focus on the positive and future rather than get stuck in the bullshit. continue current mgmt. per , potentially discharge early next week. 06/22: remains bright and cheery, looking forward to [facility] services and discharge to respite next week. decrease ativan PRN dosing from 1.5 mg to 1 mg. otherwise no change to mgmt. Reason for contiued inpatient stay Substantial Risk for: harm to self, inability to function and rapid decompensation Time Spent With Patient Time: Total time managing care of this patient today __20__ minutes.
[2022-06-22] MEDS: Milk of Magnesia 30 ML ORAL.SUSP PO (14:54)
[2022-06-22] MEDS: LORazepam 1 MG TABLET PO (18:52)
[2022-06-22 21:54] VITALS: BP 126/64; PULSE 83; RESP 18; O2SAT 98
[2022-06-22] MEDS: Prazosin HCL 1 MG CAPSULE PO (22:09)
[2022-06-23] MEDS: Acetaminophen 325 MG TABLET 650 MG PO ×3 (06:39→20:38)
[2022-06-23] MEDS: Cyclobenzaprine HCl 10 MG TABLET PO ×2 (06:39→17:14)
[2022-06-23] MEDS: Omeprazole 20 MG CAPSULE.DR PO (06:40)
[2022-06-23] MEDS: Ibuprofen 800 MG TABLET PO ×2 (06:40→17:15)
[2022-06-23] MEDS: Pregabalin 150 MG CAPSULE PO ×3 (06:40→20:37)
[2022-06-23] MEDS: LORazepam 1 MG TABLET PO ×2 (06:55→17:15)
[2022-06-23 08:20] VITALS: BP 121/93; PULSE 87; RESP 18; TEMP 36.6; O2SAT 98
[2022-06-23] MEDS: DULoxetine HCl 60 MG CAPSULE.DR PO (08:21)
[2022-06-23] MEDS: Atorvastatin Calcium 80 MG TABLET PO (08:21)
[2022-06-23] MEDS: Clopidogrel Bisulfate 75 MG TABLET PO (08:21)
[2022-06-23] MEDS: Sennosides/Docusate Sodium TABLET 1 TAB PO ×2 (08:21→20:38)
[2022-06-23] MEDS: buPROPion HCl XL 300 MG TAB.ER.24H PO (08:21)
[2022-06-23] MEDS: Fludrocortisone Acetate 0.1 MG TABLET PO (08:22)
[2022-06-23] MEDS: carvediloL 12.5 MG TABLET PO ×2 (08:22→20:37)
[2022-06-23] MEDS: Aspirin Enteric Coated 81 MG TABLET.DR PO (08:23)
[2022-06-23] MEDS: Magnesium Oxide 400 MG TABLET PO (08:25)
[2022-06-23] MEDS: Trolamine Salicylate 10 % Cream 141 gm Tube 1 APPL TOPICAL (09:10)
--- NOTE | 2022-06-23 10:51 | HO.PSYCHPN ---
Subjective Subjective Date of Service: 06/23/22 Reason For Visit: SI Interim History: calm, cooperative. states her carpal tunnel is bothering her so she is skipping art. optimistic re [facility] mt next week, getting anxious about details such as getting to her house and moving her things out, etc. no other complaints or requests. per staff, upset yesterday about someone coming in her room without knocking. denies SI/HI. relaxed later in the day. attending groups, eating meals. anx 9, dep 10. up x2 due to roommate's snoring. Mental Status Exam Mental Status Exam Narrative: cooperative.? no PMA/PMR.? speech nml rate, loudness, amount, latency.? thoughts linear and logical, not aggressive or critical today.? affect full range, normo-intense, non-labile.? no SI/HI/AVH expressed. Diagnostics Vital Signs (24Hr): Vital Signs - 24 hr 06/22/22 21:54 06/23/22 08:20 Temperature 97.9 F Pulse Rate 83 87 Respiratory Rate 18 18 Blood Pressure 126/64 121/93 H Pulse Oximetry 98 98 Oxygen Delivery Method Room Air Room Air BMI result Body Mass Index 30.2 Labs 05/15/22 10:32 05/16/22 08:44 Imaging Radiology Impressions: ITS Impressions Venous Duplex 05/22/22 21:36 IMPRESSION: No DVT demonstrated in the left lower extremity. Brain MRI 05/26/22 13:18 IMPRESSION: There are scattered nonspecific signal changes primarily involving the periventricular white matter. There is a single focus of T2 FLAIR signal hyperintensity within the left nick with associated ill-defined enhancement on postcontrast imaging. This finding could represent a small developmental venous anomaly or capillary telangiectasia. The possibility of active demyelination in the setting of suspected demyelinating disease cannot be definitively excluded but is felt to be less likely based on the distribution of chronic white matter disease. A follow-up brain MRI without and with contrast can be obtained at 6 months to assess the stability of this finding. Otherwise no abnormal enhancement visualized elsewhere within the [id number] of this examination. No evidence of acute territorial infarct or hemorrhage. Foot X-Ray 06/02/22 12:49 IMPRESSION: Right foot: *Partial visualization of marked osteoarthritis of the tibiotalar joint. *Partial visualization of an internal fixation screw within the distal fibula. *No acute abnormalities identified. Left foot: *Chronic posttraumatic deformity of the base of the fifth metatarsal. *No acute abnormalities identified. *Moderate plantar calcaneal enthesophyte which may represent the sequela of chronic plantar fasciitis. Foot X-Ray 06/02/22 12:49 IMPRESSION: Right foot: *Partial visualization of marked osteoarthritis of the tibiotalar joint. *Partial visualization of an internal fixation screw within the distal fibula. *No acute abnormalities identified. Left foot: *Chronic posttraumatic deformity of the base of the fifth metatarsal. *No acute abnormalities identified. *Moderate plantar calcaneal enthesophyte which may represent the sequela of chronic plantar fasciitis. Medications Medications Current Medications Acetaminophen (Acetaminophen 325 Mg Tablet) 650 mg PO TID@0630,1230,2030 [facility] Last Admin: 06/23/22 06:39 Dose: 650 mg Al Hydroxide/Mg Hydroxide (Magnesium Hydrox/Alum Hydrox 30 Ml Oral.Susp) 30 ml PO Q6H PRN PRN Reason: Heartburn/Nausea Aspirin (Aspirin Enteric Coated 81 Mg Tablet.) 81 mg PO DAILY [facility] Last Admin: 06/23/22 08:23 Dose: 81 mg Atorvastatin Calcium (Atorvastatin Calcium 80 Mg Tablet) 80 mg PO DAILY [facility] Last Admin: 06/23/22 08:21 Dose: 80 mg Bupropion HCl (Bupropion Hcl Xl 300 Mg Tab.Er.24h) 300 mg PO DAILY [facility] Last Admin: 06/23/22 08:21 Dose: 300 mg Carvedilol (Carvedilol 12.5 Mg Tablet) 12.5 mg PO BID [facility] Last Admin: 06/23/22 08:22 Dose: 12.5 mg Clopidogrel Bisulfate (Clopidogrel Bisulfate 75 Mg Tablet) 75 mg PO DAILY [facility] Last Admin: 06/23/22 08:21 Dose: 75 mg Cyclobenzaprine HCl (Cyclobenzaprine Hcl 10 Mg Tablet) 10 mg PO Q6H PRN PRN Reason: Muscle Spasm Last Admin: 06/23/22 06:39 Dose: 10 mg Duloxetine HCl (Duloxetine Hcl 60 Mg Capsule.) 60 mg PO DAILY [facility] Last Admin: 06/23/22 08:21 Dose: 60 mg Fludrocortisone Acetate (Fludrocortisone Acetate 0.1 Mg Tablet) 0.1 mg PO DAILY [facility] Last Admin: 06/23/22 08:22 Dose: 0.1 mg Hydroxyzine HCl (Hydroxyzine Hcl 50 Mg Tablet) 50 mg PO BEDTIME PRN PRN Reason: Insomnia Last Admin: 06/17/22 21:05 Dose: 50 mg Ibuprofen (Ibuprofen 800 Mg Tablet) 800 mg PO Q8H PRN PRN Reason: Pain, Moderate (Pain Scale 4-6 Last Admin: 06/23/22 06:40 Dose: 800 mg Lactic Acid (Ammonium Lactate 12 % Cream 140 Gm Tube) 1 appl TOPICAL BID PRN; Protocol PRN Reason: Dry Skin Last Admin: 06/17/22 09:09 Dose: 1 appl Lorazepam (Lorazepam 1 Mg Tablet) 1 mg PO Q6H PRN PRN Reason: severe anxiety Last Admin: 06/23/22 06:55 Dose: 1 mg Magnesium Hydroxide (Milk Of Magnesia 30 Ml Oral.Susp) 30 ml PO DAILY PRN PRN Reason: Constipation Last Admin: 06/22/22 14:54 Dose: 30 ml Magnesium Oxide (Magnesium Oxide 400 Mg Tablet) 400 mg PO DAILY [facility] Last Admin: 06/23/22 08:25 Dose: 400 mg Midodrine (Midodrine Hcl 5 Mg Tablet) 5 mg PO TID@0900,1300,1800 [facility] Last Admin: 06/23/22 08:25 Dose: Not Given Nicotine (Nicotine 21 Mg Patch.Td24) 21 mg TRANSDERMA DAILY PRN PRN Reason: nicotine cravings Omeprazole (Omeprazole 20 Mg Capsule.Dr) 20 mg PO DAILY@0630 [facility] Last Admin: 06/23/22 06:40 Dose: 20 mg Prazosin HCl (Prazosin Hcl 1 Mg Capsule) 1 mg PO BEDTIME [facility]; Protocol Last Admin: 06/22/22 22:09 Dose: 1 mg Pregabalin (Pregabalin 150 Mg Capsule) 150 mg PO TID@0630,1230,2030 [facility] Last Admin: 06/23/22 06:40 Dose: 150 mg Senna/Docusate Sodium (Sennosides/Docusate Sodium Tablet) 1 tab PO BID [facility] Last Admin: 06/23/22 08:21 Dose: 1 tab Trolamine Salicylate (Trolamine Salicylate 10 % Cream 141 Gm Tube) 1 appl TOPICAL QID PRN; Protocol PRN Reason: low back pain Last Admin: 06/23/22 09:10 Dose: 1 appl Zinc Oxide (Zinc Oxide (Triple Paste) 56.7 Gm Oint) 1 appl TOPICAL DAILY [facility]; Protocol Last Admin: 06/22/22 06:00 Dose: 1 appl Allergies Allergies Allergy/AdvReac Type Severity Reaction Status Date / Time aspirin [ASPIRIN] Allergy Unknown SENSITIVITY Verified 04/30/22 13:04 lisinopril Allergy Unknown falls, Verified 04/30/22 13:04 muscle weakness Assessment & Plan Assessment & Plan (1) Healing skin ulcer, limited to breakdown of skin: Status: Acute Code(s): L98.491 - Non-pressure chronic ulcer of skin of other sites limited to breakdown of skin Assessment and Plan: 56-year-old female with left wrist wound which is healing and fully epithelialized. Recommend topical zinc oxide to the periwound, particularly over the scarred area. Okay if zinc oxide adheres to the entire area. Small gauze such as 2x2 with spandage is to keep it covered until it is completely contracted may benefit the patient. No indication for wound care follow-up after discharge. (2) Borderline personality disorder: Status: Acute Code(s): F60.3 - Borderline personality disorder (3) Labile blood pressure: Status: Acute Code(s): R09.89 - Other specified symptoms and signs involving the circulatory and respiratory systems (4) Suicidal ideation: Status: Acute Code(s): R45.851 - Suicidal ideations (5) Depression: Status: Acute Code(s): F32.A - Depression, unspecified (6) Acute anxiety: Status: Acute Code(s): F41.9 - Anxiety disorder, unspecified Plan 05/16: continue outpt meds for now. cardiology consult for mgmt of BP and opinion on QTc mgmt. OT eval for ambulation and need for nursing home. build rapport, consider mood/anxiety medication as indicated. Patient educated on: diagnosis and substance abuse 05/17: per OT: She should continue using the walker. Her biggest issue is her orthostatic hypotension and frequently syncopizes (not in past 2 weeks though). As for her ability to live independently, yes, from a purely musculoskeletal standpoint. per Cardiology: 1) reduce midodrine to 5 mg TID, give 30 min prior to meals. 2) reduce carvedilol to 12.5 BID. 3) continue fludrocortisone as is. 4) BP Q3H WA. 5) hold midodrine for SBP > 150 or DBP > 95. 6) hold fludrocortisone if SBP > 150. 7) hold carvedilol if SBP < 110. 8) replete Mg to above 2. 9) replete K to above 4. 10) QTc up to 500 ms is acceptable for now. psych: stable presentation. 05/18: BP improved. gabapentin increased to 900 QID as of today.? otherwise continue current mgmt. 05/19: continue tx. 05/20: No changes to current treatment plan.? Will adjust Advil to 800 mg as needed up to 3 times per day consistent with patient's home regimen 05/21: No changes to current treatment plan. 05/22: wrist brace for carpal tunnel complaints.? ativan 1 mg daily PRN for severe anxiety, only while hospitalized.? very wordy today, seemingly evasive about discussing substantive issues regarding her Tx here and dispo planning. 05/23: extremely denigrating and accusatory, asserting staff enjoy her suffering and are intentionally doing things to make her suffer.? demanding medical attention for myriad complaints, historical and chronic as well as more recent.? alleging withholding of care.? demanding to have a wheelchair, states she cannot ambulate due to foot pain.? PT eval for wheelchair, T/C med consult for prominent and acute complaints. 05/24: declines mtg with MD, saying she is not in the mood.? interdisciplinary mtg held re pt's care, plan to pursue more collateral, check [facility], refer for [facility] services made. 05/25: quite angry/pressured with litany of complaints today.? [facility] .? placed on 1:1 for SIB. 05/26: periods of collaboration and calm today, interspersed with the recent aggressiveness and criticality.? OBS decreased to Q5 min checks at pt request.? she reports she will begin to take her medications again in response.? denying any SIBI, states she will refrain from engaging in such. 05/28/22 Continue current regime, as she reports she believes it is beginning to work. Discussion of feeling hurt by some team interactions with her-continue to educate re process of therapy and rationale for questions she is asked. 05/29: denies banging her head over weekend, yet RN note from 05/28 states she did so.? more pleasant today, focussed on scapegoating particular staff member rather than the class as a whole.? paranoid unnamed staff are messing with her, however, such as my messing up her meal orders, as apparently happened twice over the weekend.? divulged trauma-related nightmares and insomnia, considering prazosin (cardiology consulted). 05/30: calm, cooperative, not aggressive or critical today.? agrees to trial of wellbutrin as adjunctive anti-depressant. 05/31: calm, cooperative.? increasingly future-oriented and collaborative.? will submit [facility] application.? no side effects from medications.? continue current mgmt, increase wellbutrin after 2 more days. 06/01: pleasant, even cheery.? no complaints.? one more day of wellbutrin 150, then increase to 300.? revisit possibility of prazosin for nightmares and insomnia in PTSD. 06/02: continues pleasant and cheery.? asking for gabapentin taper and lyrica titration.? wellbutrin to be increased to 300 mg as of tomorrow.? otherwise continue current mgmt. 06/03: No med changes, pt declines to meet with T/W, denies concerns 06/04: No med changes, continue with gabapentin taper and lyrica titration 06/05: No med changes, continue with gabapentin taper and lyrica titration 06/06: DC gabapentin, double lyrica to 150 TID. 06/07: no change in presentation.? not aggressive or critical.? neuropathy improved with lyrica.? [facility] contacted and encouraged to expedite case. 06/08: [facility] to meet with pt next sunday.? pt c/o unsteadiness, short-term memory loss.? neuropathy improved. 06/02: neuropathy continues improved.? bright, social, engaging while still reporting intent to suicide. 06/10: Continue current tx plan. 06/11: Continue current tx plan.? 06/12: Continue tx plan. 06/13: schedule tylenol for non-neuropathic foot pain.? lyrica helpful for neuropathic foot pain.? met with [facility] this afternoon. 06/14: felt [facility] mtg went well, hopeful.? c/o nightmares, prazosin 1 mg added at HS (per convo with cards, if there is a psychiatric indication, it may be added.? there is no cardiac/circulatory system contraindication).? also hydroxyzine 50 added at HS for insomnia.? ativan PRNs increased to 1.5 mg each per pt request.? appears bright, social, largely WNL as ever for recent weeks. 06/15: stable.? changed params on HS BP meds to make it more likely she will receive them; she is advocating for such and willing to take responsibility for any negative outcome.? awaiting word from [facility] on dispo options and support level. 06/16: stable.? had prazosin last night, no ill effects.? no nightmares.? continue current mgmt, awaiting word from [facility]. 06/17 continue tx. 06/18 continue tx. 06/19: renew ativan orders.? otherwise continue current mgmt.? awaiting word from [facility] on whether or not they will accept her.? plan to DC to [facility] respite. 06/20: zinc oxide to wound. otherwise no change in mgmt. [facility] to give word tomorrow. 06/21: accepted for [facility] services. overheard what she believes was staff talking about how she has been here too long, became suicidal and made provocative statements. in discussion, wanting to focus on the positive and future rather than get stuck in the bullshit. continue current mgmt. per , potentially discharge early next week. 06/22: remains bright and cheery, looking forward to [facility] services and discharge to respite next week. decrease ativan PRN dosing from 1.5 mg to 1 mg. otherwise no change to mgmt. 06/23: stable. planning for [facility] mtg next sunday and DC to respite sometime next week. continue current mgmt. Reason for contiued inpatient stay Substantial Risk for: harm to self, inability to function and rapid decompensation Time Spent With Patient Time: Total time managing care of this patient today _25___ minutes.
[2022-06-23 12:31] VITALS: BP 133/74; PULSE 86
[2022-06-23] MEDS: Midodrine HCl 5 MG TABLET PO (12:34)
[2022-06-23] MEDS: Zinc Oxide (Triple Paste) 56.7 GM OINT 1 APPL TOPICAL (12:34)
[2022-06-23 18:26] VITALS: BP 150/87; PULSE 82
[2022-06-23 20:30] VITALS: BP 156/81; PULSE 81; RESP 16; TEMP 35.9; O2SAT 98
[2022-06-23] MEDS: Prazosin HCL 1 MG CAPSULE PO (20:37)
[2022-06-24] MEDS: Pregabalin 150 MG CAPSULE PO ×3 (06:56→20:34)
--- NOTE | 2022-06-24 07:24 | PC.NURSE ---
This nurse went into Evon's room at 0645 to give her, her morning medications. Patient stated 'You are late and should have been here at 0630 . This nurse told patient that she appeared to be sleeping and I was going to wait for the last moment I could wait to give her the medications to let her sleep. Patient began to yell at nurse that I was waiting until 0730 to give her her medications. Nurse then attempted to explain to Evon that he meant the last few moments before 0700 where he would be in report so 0655. Patient then refused to take the other medications and stated she would only take the Lyrica. Patient than stated that she needed to see the pill and this nurse suggested she turn on her reading light. Patient stated that was not enough light and asked for the main light to be turned on. Turned on the main light. The nurse showed the patient the empty package but refused to take pill. Nurse asked for patient to return pill to nurse and she refused. Nurse then called for assistance because we would need the pill back. Staff cortney came into the room and she gave the pill back and began to call the nurse an asshole for not giving her her meds. This nurse went to get another Lyrica that was in the package. Went to patient's room and she stated she needed a witness so this nurse requested a psychiatric counselor to come into the room and observe. Patient than stated are you giving me the other medications, nurse explained to patient that she stated she would only take the Lyrica. Patient than called nurse an asshole again. Nurse said Ok, I will record it as a refusal. Patient came into the hallway yelling at nurse to give her her medications. Nurse went back to patient and showed Lyrica in the package and then opened it and patient grabbed it from nurse's hand and took medication. Patient stated you should not be a nurse. Nurse then left the area.
[2022-06-24 08:55] VITALS: BP 163/93; PULSE 96; RESP 18; TEMP 36.3; O2SAT 98
[2022-06-24] MEDS: DULoxetine HCl 60 MG CAPSULE.DR PO (08:57)
[2022-06-24] MEDS: Sennosides/Docusate Sodium TABLET 1 TAB PO (08:57)
[2022-06-24] MEDS: Clopidogrel Bisulfate 75 MG TABLET PO (08:57)
[2022-06-24] MEDS: Atorvastatin Calcium 80 MG TABLET PO (08:57)
[2022-06-24] MEDS: Fludrocortisone Acetate 0.1 MG TABLET PO (08:57)
[2022-06-24] MEDS: buPROPion HCl XL 300 MG TAB.ER.24H PO (08:57)
[2022-06-24] MEDS: Aspirin Enteric Coated 81 MG TABLET.DR PO (08:58)
[2022-06-24] MEDS: carvediloL 12.5 MG TABLET PO (08:58)
[2022-06-24] MEDS: Magnesium Oxide 400 MG TABLET PO (09:00)
[2022-06-24] MEDS: Zinc Oxide (Triple Paste) 56.7 GM OINT 1 APPL TOPICAL (11:31)
[2022-06-24] MEDS: Trolamine Salicylate 10 % Cream 141 gm Tube 1 APPL TOPICAL (11:31)
[2022-06-24] MEDS: Acetaminophen 325 MG TABLET 650 MG PO (13:07)
[2022-06-24] MEDS: Ibuprofen 800 MG TABLET PO (13:42)
[2022-06-24] MEDS: LORazepam 1 MG TABLET PO (13:43)
--- NOTE | 2022-06-24 17:38 | P.PNPSI_ITS ---
Subjective Subjective Date of Service: 06/24/22 Reason For Visit: SI Interim History: met with patient. Discussed with Nursing. Chart reviewed. Upset and angry regarding interaction with Nursing early this morning around medications. After same reported she would refuse care . With procedure writer initially irritable and loud regarding her upset around medications and nursing. Appeared to respond well to listening. Was able to name staff she was thankful for on the unit. Denied current SI or thoughts of self-harm. No overt delusions or hallucinations. Denied medication concerns. Medication Compliance: Yes Side effects from medications: No Attending Groups: Intermittent Review of Systems Acute medical concerns: No Review of Systems Review of Systems Unremarkable Mental Status Exam Mental Status Exam Narrative: appropriately dressed. Engaged. Irritable and loud initially, but became more appropriate as interaction progressed. Labile mood. Denies current SI or self- harm ideas. Does report feeling supported by staff overall. No HI. No overt psychosis noted. Insight and judgment okay Diagnostics Vital Signs (24Hr): Vital Signs - 24 hr 06/23/22 18:26 06/23/22 20:30 06/24/22 08:55 Temperature 96.7 F L 97.4 F Pulse Rate 82 81 96 Respiratory Rate 16 18 Blood Pressure 150/87 H 156/81 H 163/93 H Pulse Oximetry 98 98 Oxygen Delivery Method Room Air Room Air BMI result Body Mass Index 30.2 Labs 05/15/22 10:32 05/16/22 08:44 Imaging Radiology Impressions: ITS Impressions Venous Duplex 05/22/22 21:36 IMPRESSION: No DVT demonstrated in the left lower extremity. Brain MRI 05/26/22 13:18 IMPRESSION: There are scattered nonspecific signal changes primarily involving the periventricular white matter. There is a single focus of T2 FLAIR signal hyperintensity within the left nick with associated ill-defined enhancement on postcontrast imaging. This finding could represent a small developmental venous anomaly or capillary telangiectasia. The possibility of active demyelination in the setting of suspected demyelinating disease cannot be definitively excluded but is felt to be less likely based on the distribution of chronic white matter disease. A follow-up brain MRI without and with contrast can be obtained at 6 months to assess the stability of this finding. Otherwise no abnormal enhancement visualized elsewhere within the [id number] of this examination. No evidence of acute territorial infarct or hemorrhage. Foot X-Ray 12/23/22 12:49 IMPRESSION: Right foot: *Partial visualization of marked osteoarthritis of the tibiotalar joint. *Partial visualization of an internal fixation screw within the distal fibula. *No acute abnormalities identified. Left foot: *Chronic posttraumatic deformity of the base of the fifth metatarsal. *No acute abnormalities identified. *Moderate plantar calcaneal enthesophyte which may represent the sequela of chronic plantar fasciitis. Foot X-Ray 06/02/22 12:49 IMPRESSION: Right foot: *Partial visualization of marked osteoarthritis of the tibiotalar joint. *Partial visualization of an internal fixation screw within the distal fibula. *No acute abnormalities identified. Left foot: *Chronic posttraumatic deformity of the base of the fifth metatarsal. *No acute abnormalities identified. *Moderate plantar calcaneal enthesophyte which may represent the sequela of chronic plantar fasciitis. Medications Medications Current Medications Acetaminophen (Acetaminophen 325 Mg Tablet) 650 mg PO TID@0630,1230,2030 [facility] Last Admin: 06/24/22 13:07 Dose: 650 mg Al Hydroxide/Mg Hydroxide (Magnesium Hydrox/Alum Hydrox 30 Ml Oral.Susp) 30 ml PO Q6H PRN PRN Reason: Heartburn/Nausea Aspirin (Aspirin Enteric Coated 81 Mg Tablet.) 81 mg PO DAILY [facility] Last Admin: 06/24/22 08:58 Dose: 81 mg Atorvastatin Calcium (Atorvastatin Calcium 80 Mg Tablet) 80 mg PO DAILY [facility] Last Admin: 06/24/22 08:57 Dose: 80 mg Bupropion HCl (Bupropion Hcl Xl 300 Mg Tab.Er.24h) 300 mg PO DAILY [facility] Last Admin: 06/24/22 08:57 Dose: 300 mg Carvedilol (Carvedilol 12.5 Mg Tablet) 12.5 mg PO BID [facility] Last Admin: 06/24/22 08:58 Dose: 12.5 mg Clopidogrel Bisulfate (Clopidogrel Bisulfate 75 Mg Tablet) 75 mg PO DAILY [facility] Last Admin: 06/24/22 08:57 Dose: 75 mg Cyclobenzaprine HCl (Cyclobenzaprine Hcl 10 Mg Tablet) 10 mg PO Q6H PRN PRN Reason: Muscle Spasm Last Admin: 06/23/22 17:14 Dose: 10 mg Duloxetine HCl (Duloxetine Hcl 60 Mg Capsule.) 60 mg PO DAILY [facility] Last Admin: 06/24/22 08:57 Dose: 60 mg Fludrocortisone Acetate (Fludrocortisone Acetate 0.1 Mg Tablet) 0.1 mg PO DAILY [facility] Last Admin: 06/24/22 08:57 Dose: 0.1 mg Hydroxyzine HCl (Hydroxyzine Hcl 50 Mg Tablet) 50 mg PO BEDTIME PRN PRN Reason: Insomnia Last Admin: 06/17/22 21:05 Dose: 50 mg Ibuprofen (Ibuprofen 800 Mg Tablet) 800 mg PO Q8H PRN PRN Reason: Pain, Moderate (Pain Scale 4-6 Last Admin: 06/24/22 13:42 Dose: 800 mg Lactic Acid (Ammonium Lactate 12 % Cream 140 Gm Tube) 1 appl TOPICAL BID PRN; Protocol PRN Reason: Dry Skin Last Admin: 06/17/22 09:09 Dose: 1 appl Lorazepam (Lorazepam 1 Mg Tablet) 1 mg PO Q6H PRN PRN Reason: severe anxiety Last Admin: 06/24/22 13:43 Dose: 1 mg Magnesium Hydroxide (Milk Of Magnesia 30 Ml Oral.Susp) 30 ml PO DAILY PRN PRN Reason: Constipation Last Admin: 06/22/22 14:54 Dose: 30 ml Magnesium Oxide (Magnesium Oxide 400 Mg Tablet) 400 mg PO DAILY [facility] Last Admin: 06/24/22 09:00 Dose: 400 mg Midodrine (Midodrine Hcl 5 Mg Tablet) 5 mg PO TID@0900,1300,1800 [facility] Last Admin: 06/24/22 13:08 Dose: Not Given Multi-Ingred Cream/Lotion/Oil/Oint (Mineral Oil/Petrolatum,White 106 Gm Tube) 1 appl TOPICAL DAILY PRN; Protocol PRN Reason: Dry Skin Nicotine (Nicotine 21 Mg Patch.Td24) 21 mg TRANSDERMA DAILY PRN PRN Reason: nicotine cravings Omeprazole (Omeprazole 20 Mg Capsule.Dr) 20 mg PO DAILY@0630 [facility] Last Admin: 06/24/22 08:59 Dose: Not Given Prazosin HCl (Prazosin Hcl 1 Mg Capsule) 1 mg PO BEDTIME [facility]; Protocol Last Admin: 06/23/22 20:37 Dose: 1 mg Pregabalin (Pregabalin 150 Mg Capsule) 150 mg PO TID@0630,1230,2030 [facility] Last Admin: 06/24/22 13:07 Dose: 150 mg Senna/Docusate Sodium (Sennosides/Docusate Sodium Tablet) 1 tab PO BID [facility] Last Admin: 06/24/22 08:57 Dose: 1 tab Trolamine Salicylate (Trolamine Salicylate 10 % Cream 141 Gm Tube) 1 appl TOPICAL QID PRN; Protocol PRN Reason: low back pain Last Admin: 06/24/22 11:31 Dose: 1 appl Zinc Oxide (Zinc Oxide (Triple Paste) 56.7 Gm Oint) 1 appl TOPICAL DAILY [facility]; Protocol Last Admin: 06/24/22 11:31 Dose: 1 appl Allergies Allergies Allergy/AdvReac Type Severity Reaction Status Date / Time aspirin [ASPIRIN] Allergy Unknown SENSITIVITY Verified 04/30/22 13:04 lisinopril Allergy Unknown falls, Verified 04/30/22 13:04 muscle weakness Assessment & Plan Assessment & Plan (1) Healing skin ulcer, limited to breakdown of skin: Status: Acute Code(s): L98.491 - Non-pressure chronic ulcer of skin of other sites limited to breakdown of skin Assessment and Plan: 56-year-old female with left wrist wound which is healing and fully epithelialized. Recommend topical zinc oxide to the periwound, particularly over the scarred area. Okay if zinc oxide adheres to the entire area. Small gauze such as 2x2 with spandage is to keep it covered until it is completely contracted may benefit the patient. No indication for wound care follow-up after discharge. (2) Borderline personality disorder: Status: Acute Code(s): F60.3 - Borderline personality disorder (3) Labile blood pressure: Status: Acute Code(s): R09.89 - Other specified symptoms and signs involving the circulatory and respiratory systems (4) Suicidal ideation: Status: Acute Code(s): R45.851 - Suicidal ideations (5) Depression: Status: Acute Code(s): F32.A - Depression, unspecified (6) Acute anxiety: Status: Acute Code(s): F41.9 - Anxiety disorder, unspecified Plan 05/16: continue outpt meds for now. cardiology consult for mgmt of BP and opinion on QTc mgmt. OT eval for ambulation and need for intermediate. build rapport, consider mood/anxiety medication as indicated. Patient educated on: diagnosis and substance abuse 05/17: per OT: She should continue using the walker. Her biggest issue is her orthostatic hypotension and frequently syncopizes (not in past 2 weeks though). As for her ability to live independently, yes, from a purely musculoskeletal standpoint. per Cardiology: 1) reduce midodrine to 5 mg TID, give 30 min prior to meals. 2) reduce carvedilol to 12.5 BID. 3) continue fludrocortisone as is. 4) BP Q3H WA. 5) hold midodrine for SBP > 150 or DBP > 95. 6) hold fludrocortisone if SBP > 150. 7) hold carvedilol if SBP < 110. 8) replete Mg to above 2. 9) replete K to above 4. 10) QTc up to 500 ms is acceptable for now. psych: stable presentation. 05/18: BP improved. gabapentin increased to 900 QID as of today.? otherwise continue current mgmt. 05/19: continue tx. 05/20: No changes to current treatment plan.? Will adjust Advil to 800 mg as needed up to 3 times per day consistent with patient's home regimen 05/21: No changes to current treatment plan. 05/22: wrist brace for carpal tunnel complaints.? ativan 1 mg daily PRN for severe anxiety, only while hospitalized.? very wordy today, seemingly evasive about discussing substantive issues regarding her Tx here and dispo planning. 05/23: extremely denigrating and accusatory, asserting staff enjoy her suffering and are intentionally doing things to make her suffer.? demanding medical attention for myriad complaints, historical and chronic as well as more recent.? alleging withholding of care.? demanding to have a wheelchair, states she cannot ambulate due to foot pain.? PT eval for wheelchair, T/C med consult for prominent and acute complaints. 05/24: declines mtg with , saying she is not in the mood.? interdisciplinary mtg held re pt's care, plan to pursue more collateral, check [facility], refer for [facility] services made. 05/25: quite angry/pressured with litany of complaints today.? [facility] .? placed on 1:1 for SIB. 05/26: periods of collaboration and calm today, interspersed with the recent aggressiveness and criticality.? OBS decreased to Q5 min checks at pt request.? she reports she will begin to take her medications again in response.? denying any SIBI, states she will refrain from engaging in such. 05/28/22 Continue current regime, as she reports she believes it is beginning to work. Discussion of feeling hurt by some team interactions with her-continue to educate re process of therapy and rationale for questions she is asked. 05/29: denies banging her head over weekend, yet RN note from 05/28 states she did so.? more pleasant today, focussed on scapegoating particular staff member rather than the class as a whole.? paranoid unnamed staff are messing with her, however, such as my messing up her meal orders, as apparently happened twice over the weekend.? divulged trauma-related nightmares and insomnia, considering prazosin (cardiology consulted). 05/30: calm, cooperative, not aggressive or critical today.? agrees to trial of wellbutrin as adjunctive anti-depressant. 05/31: calm, cooperative.? increasingly future-oriented and collaborative.? will submit [facility] application.? no side effects from medications.? continue current mgmt, increase wellbutrin after 2 more days. 06/01: pleasant, even cheery.? no complaints.? one more day of wellbutrin 150, then increase to 300.? revisit possibility of prazosin for nightmares and insomnia in PTSD. 06/02: continues pleasant and cheery.? asking for gabapentin taper and lyrica titration.? wellbutrin to be increased to 300 mg as of tomorrow.? otherwise continue current mgmt. 06/03: No med changes, pt declines to meet with T/W, denies concerns 06/04: No med changes, continue with gabapentin taper and lyrica titration 06/05: No med changes, continue with gabapentin taper and lyrica titration 06/06: DC gabapentin, double lyrica to 150 TID. 06/07: no change in presentation.? not aggressive or critical.? neuropathy improved with lyrica.? DM contacted and encouraged to expedite case. 06/08: [facility] to meet with pt next sunday.? pt c/o unsteadiness, short-term memory loss.? neuropathy improved. 06/02: neuropathy continues improved.? bright, social, engaging while still reporting intent to suicide. 06/10: Continue current tx plan. 06/11: Continue current tx plan.? 06/12: Continue tx plan. 06/13: schedule tylenol for non-neuropathic foot pain.? lyrica helpful for neuropathic foot pain.? met with [facility] this afternoon. 06/14: felt [facility] mtg went well, hopeful.? c/o nightmares, prazosin 1 mg added at HS (per convo with cards, if there is a psychiatric indication, it may be added.? there is no cardiac/circulatory system contraindication).? also hydroxyzine 50 added at HS for insomnia.? ativan PRNs increased to 1.5 mg each per pt request.? appears bright, social, largely WNL as ever for recent weeks. 06/15: stable.? changed params on HS BP meds to make it more likely she will receive them; she is advocating for such and willing to take responsibility for any negative outcome.? awaiting word from [facility] on dispo options and support level. 06/16: stable.? had prazosin last night, no ill effects.? no nightmares.? continue current mgmt, awaiting word from [facility]. 06/17 continue tx. 06/18 continue tx. 06/19: renew ativan orders.? otherwise continue current mgmt.? awaiting word from [facility] on whether or not they will accept her.? plan to DC to [facility] respite. 06/20: zinc oxide to wound. otherwise no change in mgmt. [facility] to give word storm garza. 06/21: accepted for [facility] services. overheard what she believes was staff talking about how she has been here too long, became suicidal and made provocative statements. in discussion, wanting to focus on the positive and future rather than get stuck in the bullshit. continue current mgmt. per SW, potentially discharge early next week. 06/22: remains bright and cheery, looking forward to [facility] services and discharge to respite next week. decrease ativan PRN dosing from 1.5 mg to 1 mg. ot herwise no change to mgmt. 06/23: stable. planning for [facility] mtg next sunday and DC to respite sometime next week. continue current mgmt. 06/24/2022: No changes to current plan Reason for contiued inpatient stay Substantial Risk for: inability to function Time Spent With Patient Time: Total time managing care of this patient today ____ minutes.
[2022-06-24] MEDS: Midodrine HCl 5 MG TABLET PO (18:15)
[2022-06-24 20:20] VITALS: BP 192/119; PULSE 93; RESP 18; TEMP 36.2; O2SAT 98
--- NOTE | 2022-06-24 21:11 | PC.NURSE ---
Addendum entered by Arpit Vazquez RN 06/25/22 04:54: Carlotta Counselor Ryan observed interaction. Dr. Knight was informed of BP and refusal of medication. Original Note: Evon refused her HS medications except Lyrica. Patient's bp is 192/119 HR- 93
[2022-06-25] MEDS: Pregabalin 150 MG CAPSULE PO ×3 (06:27→21:11)
--- NOTE | 2022-06-25 06:32 | PC.NURSE ---
This nurse went into patient's room accompanied by nursing supervisor boat outfitting LISA to give 0630 medications. Patient accepted Lyrica but refused Tylenol and Prilosec. Nurse asked patient if we could get a set of vitals on patient. Patient stated No thank you, I will wait till the normal time of 0730 . Nurse observed patient taking medication and then left room.
[2022-06-25] MEDS: Omeprazole 20 MG CAPSULE.DR PO (08:48)
[2022-06-25] MEDS: Magnesium Oxide 400 MG TABLET PO (08:48)
[2022-06-25] MEDS: DULoxetine HCl 60 MG CAPSULE.DR PO (08:48)
[2022-06-25] MEDS: carvediloL 12.5 MG TABLET PO (08:48)
[2022-06-25] MEDS: Acetaminophen 325 MG TABLET 650 MG PO ×2 (08:49→12:36)
[2022-06-25] MEDS: Aspirin Enteric Coated 81 MG TABLET.DR PO (08:49)
[2022-06-25] MEDS: buPROPion HCl XL 300 MG TAB.ER.24H PO (08:49)
[2022-06-25] MEDS: Atorvastatin Calcium 80 MG TABLET PO (08:49)
[2022-06-25] MEDS: Clopidogrel Bisulfate 75 MG TABLET PO (08:49)
[2022-06-25] MEDS: Sennosides/Docusate Sodium TABLET 1 TAB PO ×2 (08:49→21:10)
[2022-06-25] MEDS: Fludrocortisone Acetate 0.1 MG TABLET PO (08:49)
[2022-06-25 08:53] VITALS: BP 155/86; PULSE 98; RESP 20; TEMP 36.1; O2SAT 97
[2022-06-25] MEDS: Zinc Oxide (Triple Paste) 56.7 GM OINT 1 APPL TOPICAL (11:52)
--- NOTE | 2022-06-25 11:59 | HO.PSYCHPN ---
Subjective Subjective Date of Service: 06/25/22 Reason For Visit: SI Interim History: Met with patient. Discussed with Nursing. Chart reviewed. Refused coreg last night as upset about incident earlier in day. Reports today is a better day and feeling supported by staff and not angry. Reports confidence is getting better I am getting my bitch back - was clear she was referencing this as confidence and not being angry. 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 Denied current SI or thoughts of self-harm. No overt delusions or hallucinations. Denied medication concerns. Medication Compliance: Yes Side effects from medications: No Attending Groups: Yes Review of Systems Acute medical concerns: No Review of Systems Review of Systems Unremarkable Mental Status Exam Mental Status Exam Narrative: appropriately dressed. Engaged. Pleasant. Denied depression. Affect euthymic today. Denies current SI or self-harm ideas. Does report feeling supported by staff overall. No HI. No overt psychosis noted. Insight and judgment okay Diagnostics Vital Signs (24Hr): Vital Signs - 24 hr 06/24/22 20:20 06/25/22 08:53 Temperature 97.2 F 97.0 F Pulse Rate 93 98 Respiratory Rate 18 20 Blood Pressure 192/119 H 155/86 H Pulse Oximetry 98 97 Oxygen Delivery Method Room Air Room Air BMI result Body Mass Index 30.2 Labs 05/15/22 10:32 05/16/22 08:44 Imaging Radiology Impressions: ITS Impressions Venous Duplex 05/22/22 21:36 IMPRESSION: No DVT demonstrated in the left lower extremity. Brain MRI 05/26/22 13:18 IMPRESSION: There are scattered nonspecific signal changes primarily involving the periventricular white matter. There is a single focus of T2 FLAIR signal hyperintensity within the left nick with associated ill-defined enhancement on postcontrast imaging. This finding could represent a small developmental venous anomaly or capillary telangiectasia. The possibility of active demyelination in the setting of suspected demyelinating disease cannot be definitively excluded but is felt to be less likely based on the distribution of chronic white matter disease. A follow-up brain MRI without and with contrast can be obtained at 6 months to assess the stability of this finding. Otherwise no abnormal enhancement visualized elsewhere within the [id number] of this examination. No evidence of acute territorial infarct or hemorrhage. Foot X-Ray 06/02/22 12:49 IMPRESSION: Right foot: *Partial visualization of marked osteoarthritis of the tibiotalar joint. *Partial visualization of an internal fixation screw within the distal fibula. *No acute abnormalities identified. Left foot: *Chronic posttraumatic deformity of the base of the fifth metatarsal. *No acute abnormalities identified. *Moderate plantar calcaneal enthesophyte which may represent the sequela of chronic plantar fasciitis. Foot X-Ray 06/02/22 12:49 IMPRESSION: Right foot: *Partial visualization of marked osteoarthritis of the tibiotalar joint. *Partial visualization of an internal fixation screw within the distal fibula. *No acute abnormalities identified. Left foot: *Chronic posttraumatic deformity of the base of the fifth metatarsal. *No acute abnormalities identified. *Moderate plantar calcaneal enthesophyte which may represent the sequela of chronic plantar fasciitis. Medications Medications Current Medications Acetaminophen (Acetaminophen 325 Mg Tablet) 650 mg PO TID@0630,1230,2030 [facility] Last Admin: 06/25/22 08:49 Dose: 650 mg Al Hydroxide/Mg Hydroxide (Magnesium Hydrox/Alum Hydrox 30 Ml Oral.Susp) 30 ml PO Q6H PRN PRN Reason: Heartburn/Nausea Aspirin (Aspirin Enteric Coated 81 Mg Tablet.) 81 mg PO DAILY [facility] Last Admin: 06/25/22 08:49 Dose: 81 mg Atorvastatin Calcium (Atorvastatin Calcium 80 Mg Tablet) 80 mg PO DAILY [facility] Last Admin: 06/25/22 08:49 Dose: 80 mg Bupropion HCl (Bupropion Hcl Xl 300 Mg Tab.Er.24h) 300 mg PO DAILY [facility] Last Admin: 06/25/22 08:49 Dose: 300 mg Carvedilol (Carvedilol 12.5 Mg Tablet) 12.5 mg PO BID [facility] Last Admin: 06/25/22 08:48 Dose: 12.5 mg Clopidogrel Bisulfate (Clopidogrel Bisulfate 75 Mg Tablet) 75 mg PO DAILY [facility] Last Admin: 06/25/22 08:49 Dose: 75 mg Cyclobenzaprine HCl (Cyclobenzaprine Hcl 10 Mg Tablet) 10 mg PO Q6H PRN PRN Reason: Muscle Spasm Last Admin: 06/23/22 17:14 Dose: 10 mg Duloxetine HCl (Duloxetine Hcl 60 Mg Capsule.) 60 mg PO DAILY [facility] Last Admin: 06/25/22 08:48 Dose: 60 mg Fludrocortisone Acetate (Fludrocortisone Acetate 0.1 Mg Tablet) 0.1 mg PO DAILY [facility] Last Admin: 06/25/22 08:49 Dose: 0.1 mg Hydroxyzine HCl (Hydroxyzine Hcl 50 Mg Tablet) 50 mg PO BEDTIME PRN PRN Reason: Insomnia Last Admin: 06/17/22 21:05 Dose: 50 mg Ibuprofen (Ibuprofen 800 Mg Tablet) 800 mg PO Q8H PRN PRN Reason: Pain, Moderate (Pain Scale 4-6 Last Admin: 06/24/22 13:42 Dose: 800 mg Lactic Acid (Ammonium Lactate 12 % Cream 140 Gm Tube) 1 appl TOPICAL BID PRN; Protocol PRN Reason: Dry Skin Last Admin: 06/17/22 09:09 Dose: 1 appl Lorazepam (Lorazepam 1 Mg Tablet) 1 mg PO Q6H PRN PRN Reason: severe anxiety Last Admin: 06/24/22 13:43 Dose: 1 mg Magnesium Hydroxide (Milk Of Magnesia 30 Ml Oral.Susp) 30 ml PO DAILY PRN PRN Reason: Constipation Last Admin: 06/22/22 14:54 Dose: 30 ml Magnesium Oxide (Magnesium Oxide 400 Mg Tablet) 400 mg PO DAILY [facility] Last Admin: 06/25/22 08:48 Dose: 400 mg Midodrine (Midodrine Hcl 5 Mg Tablet) 5 mg PO TID@0900,1300,1800 [facility] Last Admin: 06/25/22 08:48 Dose: Not Given Multi-Ingred Cream/Lotion/Oil/Oint (Mineral Oil/Petrolatum,White 106 Gm Tube) 1 appl TOPICAL DAILY PRN; Protocol PRN Reason: Dry Skin Nicotine (Nicotine 21 Mg Patch.Td24) 21 mg TRANSDERMA DAILY PRN PRN Reason: nicotine cravings Omeprazole (Omeprazole 20 Mg Capsule.Dr) 20 mg PO DAILY@0630 [facility] Last Admin: 06/25/22 08:48 Dose: 20 mg Prazosin HCl (Prazosin Hcl 1 Mg Capsule) 1 mg PO BEDTIME [facility]; Protocol Last Admin: 06/25/22 01:04 Dose: Not Given Pregabalin (Pregabalin 150 Mg Capsule) 150 mg PO TID@0630,1230,2030 [facility] Last Admin: 06/25/22 06:27 Dose: 150 mg Senna/Docusate Sodium (Sennosides/Docusate Sodium Tablet) 1 tab PO BID [facility] Last Admin: 06/25/22 08:49 Dose: 1 tab Trolamine Salicylate (Trolamine Salicylate 10 % Cream 141 Gm Tube) 1 appl TOPICAL QID PRN; Protocol PRN Reason: low back pain Last Admin: 06/24/22 11:31 Dose: 1 appl Zinc Oxide (Zinc Oxide (Triple Paste) 56.7 Gm Oint) 1 appl TOPICAL DAILY [facility]; Protocol Last Admin: 06/25/22 11:52 Dose: 1 appl Allergies Allergies Allergy/AdvReac Type Severity Reaction Status Date / Time aspirin [ASPIRIN] Allergy Unknown SENSITIVITY Verified 04/30/22 13:04 lisinopril Allergy Unknown falls, Verified 04/30/22 13:04 muscle weakness Assessment & Plan Assessment & Plan (1) Healing skin ulcer, limited to breakdown of skin: Status: Acute Code(s): L98.491 - Non-pressure chronic ulcer of skin of other sites limited to breakdown of skin Assessment and Plan: 56-year-old female with left wrist wound which is healing and fully epithelialized. Recommend topical zinc oxide to the periwound, particularly over the scarred area. Okay if zinc oxide adheres to the entire area. Small gauze such as 2x2 with spandage is to keep it covered until it is completely contracted may benefit the patient. No indication for wound care follow-up after discharge. (2) Borderline personality disorder: Status: Acute Code(s): F60.3 - Borderline personality disorder (3) Labile blood pressure: Status: Acute Code(s): R09.89 - Other specified symptoms and signs involving the circulatory and respiratory systems (4) Suicidal ideation: Status: Acute Code(s): R45.851 - Suicidal ideations (5) Depression: Status: Acute Code(s): F32.A - Depression, unspecified (6) Acute anxiety: Status: Acute Code(s): F41.9 - Anxiety disorder, unspecified Plan 05/16: continue outpt meds for now. cardiology consult for mgmt of BP and opinion on QTc mgmt. OT eval for ambulation and need for intermediate. build rapport, consider mood/anxiety medication as indicated. Patient educated on: diagnosis and substance abuse 05/17: per OT: She should continue using the walker. Her biggest issue is her orthostatic hypotension and frequently syncopizes (not in past 2 weeks though). As for her ability to live independently, yes, from a purely musculoskeletal standpoint. per Cardiology: 1) reduce midodrine to 5 mg TID, give 30 min prior to meals. 2) reduce carvedilol to 12.5 BID. 3) continue fludrocortisone as is. 4) BP Q3H WA. 5) hold midodrine for SBP > 150 or DBP > 95. 6) hold fludrocortisone if SBP > 150. 7) hold carvedilol if SBP < 110. 8) replete Mg to above 2. 9) replete K to above 4. 10) QTc up to 500 ms is acceptable for now. psych: stable presentation. 05/18: BP improved. gabapentin increased to 900 QID as of today.? otherwise continue current mgmt. 05/19: continue tx. 05/20: No changes to current treatment plan.? Will adjust Advil to 800 mg as needed up to 3 times per day consistent with patient's home regimen 05/21: No changes to current treatment plan. 05/22: wrist brace for carpal tunnel complaints.? ativan 1 mg daily PRN for severe anxiety, only while hospitalized.? very wordy today, seemingly evasive about discussing substantive issues regarding her Tx here and dispo planning. 05/23: extremely denigrating and accusatory, asserting staff enjoy her suffering and are intentionally doing things to make her suffer.? demanding medical attention for myriad complaints, historical and chronic as well as more recent.? alleging withholding of care.? demanding to have a wheelchair, states she cannot ambulate due to foot pain.? PT eval for wheelchair, T/C med consult for prominent and acute complaints. 05/24: declines mtg with , saying she is not in the mood.? interdisciplinary mtg held re pt's care, plan to pursue more collateral, check [facility], refer for [facility] services made. 05/25: quite angry/pressured with litany of complaints today.? [facility] .? placed on 1:1 for SIB. 05/26: periods of collaboration and calm today, interspersed with the recent aggressiveness and criticality.? OBS decreased to Q5 min checks at pt request.? she reports she will begin to take her medications again in response.? denying any SIBI, states she will refrain from engaging in such. 05/28/22 Continue current regime, as she reports she believes it is beginning to work. Discussion of feeling hurt by some team interactions with her-continue to educate re process of therapy and rationale for questions she is asked. 05/29: denies banging her head over weekend, yet RN note from 05/28 states she did so.? more pleasant today, focussed on scapegoating particular staff member rather than the class as a whole.? paranoid unnamed staff are messing with her, however, such as my messing up her meal orders, as apparently happened twice over the weekend.? divulged trauma-related nightmares and insomnia, considering prazosin (cardiology consulted). 05/30: calm, cooperative, not aggressive or critical today.? agrees to trial of wellbutrin as adjunctive anti-depressant. 05/31: calm, cooperative.? increasingly future-oriented and collaborative.? will submit [facility] application.? no side effects from medications.? continue current mgmt, increase wellbutrin after 2 more days. 06/01: pleasant, even cheery.? no complaints.? one more day of wellbutrin 150, then increase to 300.? revisit possibility of prazosin for nightmares and insomnia in PTSD. 06/02: continues pleasant and cheery.? asking for gabapentin taper and lyrica titration.? wellbutrin to be increased to 300 mg as of tomorrow.? otherwise continue current mgmt. 06/03: No med changes, pt declines to meet with T/W, denies concerns 06/04: No med changes, continue with gabapentin taper and lyrica titration 06/05: No med changes, continue with gabapentin taper and lyrica titration 06/06: DC gabapentin, double lyrica to 150 TID. 06/07: no change in presentation.? not aggressive or critical.? neuropathy improved with lyrica.? DM contacted and encouraged to expedite case. 06/08: [facility] to meet with pt next sunday.? pt c/o unsteadiness, short-term memory loss.? neuropathy improved. 06/02: neuropathy continues improved.? bright, social, engaging while still reporting intent to suicide. 06/10: Continue current tx plan. 06/11: Continue current tx plan.? 06/12: Continue tx plan. 06/13: schedule tylenol for non-neuropathic foot pain.? lyrica helpful for neuropathic foot pain.? met with [facility] this afternoon. 06/14: felt [facility] mtg went well, hopeful.? c/o nightmares, prazosin 1 mg added at HS (per convo with cards, if there is a psychiatric indication, it may be added.? there is no cardiac/circulatory system contraindication).? also hydroxyzine 50 added at HS for insomnia.? ativan PRNs increased to 1.5 mg each per pt request.? appears bright, social, largely WNL as ever for recent weeks. 06/15: stable.? changed params on HS BP meds to make it more likely she will receive them; she is advocating for such and willing to take responsibility for any negative outcome.? awaiting word from [facility] on dispo options and support level. 06/16: stable.? had prazosin last night, no ill effects.? no nightmares.? continue current mgmt, awaiting word from [facility]. 06/17 continue tx. 06/18 continue tx. 06/19: renew ativan orders.? otherwise continue current mgmt.? awaiting word from [facility] on whether or not they will accept her.? plan to DC to [facility] respite. 06/20: zinc oxide to wound. otherwise no change in mgmt. [facility] to give word tomorrow. 06/21: accepted for [facility] services. overheard what she believes was staff talking about how she has been here too long, became suicidal and made provocative statements. in discussion, wanting to focus on the positive and future rather than get stuck in the bullshit. continue current mgmt. per SW, potentially discharge early next week. 06/22: remains bright and cheery, looking forward to [facility] services and discharge to respite next week. decrease ativan PRN dosing from 1.5 mg to 1 mg. otherwise no change to mgmt. 06/23: stable. planning for [facility] mtg next sunday and DC to respite sometime next week. continue current mgmt. 06/25/2022: No changes to current plan Reason for contiued inpatient stay Substantial Risk for: inability to function Time Spent With Patient Time: Total time managing care of this patient today ____ minutes.
[2022-06-25] MEDS: Ibuprofen 800 MG TABLET PO ×2 (14:07→21:11)
[2022-06-25 18:00] VITALS: BP 163/106; PULSE 93; RESP 18; O2SAT 98
[2022-06-25] MEDS: cloNIDine HCL 0.1 MG TABLET PO (19:14)
--- NOTE | 2022-06-25 19:20 | PC.NURSE ---
Patient BP 163/[address] Hilario notified, ordered 1x dose Clonidine.. Administered as ordered by
[2022-06-25 19:27] VITALS: BP 108/74; PULSE 92; O2SAT 98
--- NOTE | 2022-06-25 19:28 | PC.NURSE ---
BP retaken 108/74 HR 92. Patient reports feeling nauseated, no vomiting.
[2022-06-25 21:02] VITALS: BP 85/53; PULSE 95; RESP 18; TEMP 36.1; O2SAT 100
[2022-06-26] MEDS: Omeprazole 20 MG CAPSULE.DR PO (06:56)
[2022-06-26] MEDS: Pregabalin 150 MG CAPSULE PO ×3 (06:56→20:49)
[2022-06-26] MEDS: Ibuprofen 800 MG TABLET PO ×2 (06:57→20:49)
[2022-06-26] MEDS: Zinc Oxide (Triple Paste) 56.7 GM OINT 1 APPL TOPICAL (07:05)
[2022-06-26] MEDS: Sennosides/Docusate Sodium TABLET 1 TAB PO ×2 (08:20→20:49)
[2022-06-26] MEDS: Clopidogrel Bisulfate 75 MG TABLET PO (08:21)
[2022-06-26] MEDS: DULoxetine HCl 60 MG CAPSULE.DR PO (08:21)
[2022-06-26] MEDS: Atorvastatin Calcium 80 MG TABLET PO (08:21)
[2022-06-26] MEDS: Fludrocortisone Acetate 0.1 MG TABLET PO (08:21)
[2022-06-26] MEDS: Midodrine HCl 5 MG TABLET PO ×3 (08:22→18:35)
[2022-06-26] MEDS: carvediloL 12.5 MG TABLET PO ×2 (08:22→20:49)
[2022-06-26] MEDS: Magnesium Oxide 400 MG TABLET PO (08:23)
[2022-06-26] MEDS: buPROPion HCl XL 300 MG TAB.ER.24H PO (08:23)
[2022-06-26] MEDS: Aspirin Enteric Coated 81 MG TABLET.DR PO (08:23)
[2022-06-26 08:28] VITALS: BP 117/84; PULSE 93; RESP 18; TEMP 36.4; O2SAT 100
[2022-06-26 12:42] VITALS: BP 135/78; PULSE 83
--- NOTE | 2022-06-26 14:06 | HO.PSYCHPN ---
Subjective Subjective Date of Service: 06/26/22 Reason For Visit: SI Interim History: calm, cooperative. some complaints about how she was treated by a particular RN on sunday, but had a good day yesterday. looking forward to discussion with [facility] worker tomorrow, has practical questions in mind. future-oriented, thinking about whether or not she will be able to have her computer at respite. no other complaints or requests. per staff, sunday morning had verbal fight with RN over the timing of her medication administration. security had to be involved to retrieve meds from her as she had them in her possession but was refusing to take them. better sunday. c/o stress dreams, some difficulty sleeping. Mental Status Exam Mental Status Exam Narrative: cooperative.? no PMA/PMR.? speech nml rate, loudness, amount, latency.? thoughts linear and logical, no delusions or paranoia evident.? affect full range, normo-intense, non-labile.? no SI/HI/AVH expressed. Diagnostics Vital Signs (24Hr): Vital Signs - 24 hr 06/25/22 18:00 06/25/22 19:27 06/25/22 21:02 Temperature 97.0 F Pulse Rate 93 92 95 Respiratory Rate 18 18 Blood Pressure 163/106 H 108/74 85/53 L Pulse Oximetry 98 98 100 Oxygen Delivery Method Room Air Room Air Room Air 06/26/22 08:28 06/26/22 12:42 Temperature 97.6 F Pulse Rate 93 83 Respiratory Rate 18 Blood Pressure 117/84 135/78 Pulse Oximetry 100 Oxygen Delivery Method Room Air BMI result Body Mass Index 30.2 Labs 05/15/22 10:32 05/16/22 08:44 Imaging Radiology Impressions: ITS Impressions Venous Duplex 05/22/22 21:36 IMPRESSION: No DVT demonstrated in the left lower extremity. Brain MRI 05/26/22 13:18 IMPRESSION: There are scattered nonspecific signal changes primarily involving the periventricular white matter. There is a single focus of T2 FLAIR signal hyperintensity within the left nick with associated ill-defined enhancement on postcontrast imaging. This finding could represent a small developmental venous anomaly or capillary telangiectasia. The possibility of active demyelination in the setting of suspected demyelinating disease cannot be definitively excluded but is felt to be less likely based on the distribution of chronic white matter disease. A follow-up brain MRI without and with contrast can be obtained at 6 months to assess the stability of this finding. Otherwise no abnormal enhancement visualized elsewhere within the [id number] of this examination. No evidence of acute territorial infarct or hemorrhage. Foot X-Ray 06/02/22 12:49 IMPRESSION: Right foot: *Partial visualization of marked osteoarthritis of the tibiotalar joint. *Partial visualization of an internal fixation screw within the distal fibula. *No acute abnormalities identified. Left foot: *Chronic posttraumatic deformity of the base of the fifth metatarsal. *No acute abnormalities identified. *Moderate plantar calcaneal enthesophyte which may represent the sequela of chronic plantar fasciitis. Foot X-Ray 06/02/22 12:49 IMPRESSION: Right foot: *Partial visualization of marked osteoarthritis of the tibiotalar joint. *Partial visualization of an internal fixation screw within the distal fibula. *No acute abnormalities identified. Left foot: *Chronic posttraumatic deformity of the base of the fifth metatarsal. *No acute abnormalities identified. *Moderate plantar calcaneal enthesophyte which may represent the sequela of chronic plantar fasciitis. Medications Medications Current Medications Acetaminophen (Acetaminophen 325 Mg Tablet) 650 mg PO TID@0630,1230,2030 [facility] Last Admin: 06/26/22 08:23 Dose: Not Given Al Hydroxide/Mg Hydroxide (Magnesium Hydrox/Alum Hydrox 30 Ml Oral.Susp) 30 ml PO Q6H PRN PRN Reason: Heartburn/Nausea Aspirin (Aspirin Enteric Coated 81 Mg Tablet.) 81 mg PO DAILY [facility] Last Admin: 06/26/22 08:23 Dose: 81 mg Atorvastatin Calcium (Atorvastatin Calcium 80 Mg Tablet) 80 mg PO DAILY [facility] Last Admin: 06/26/22 08:21 Dose: 80 mg Bupropion HCl (Bupropion Hcl Xl 300 Mg Tab.Er.24h) 300 mg PO DAILY [facility] Last Admin: 06/26/22 08:23 Dose: 300 mg Carvedilol (Carvedilol 12.5 Mg Tablet) 12.5 mg PO BID [facility] Last Admin: 06/26/22 08:22 Dose: 12.5 mg Clopidogrel Bisulfate (Clopidogrel Bisulfate 75 Mg Tablet) 75 mg PO DAILY [facility] Last Admin: 06/26/22 08:21 Dose: 75 mg Cyclobenzaprine HCl (Cyclobenzaprine Hcl 10 Mg Tablet) 10 mg PO Q6H PRN PRN Reason: Muscle Spasm Last Admin: 06/23/22 17:14 Dose: 10 mg Duloxetine HCl (Duloxetine Hcl 60 Mg Capsule.) 60 mg PO DAILY [facility] Last Admin: 06/26/22 08:21 Dose: 60 mg Fludrocortisone Acetate (Fludrocortisone Acetate 0.1 Mg Tablet) 0.1 mg PO DAILY [facility] Last Admin: 06/26/22 08:21 Dose: 0.1 mg Hydroxyzine HCl (Hydroxyzine Hcl 50 Mg Tablet) 50 mg PO BEDTIME PRN PRN Reason: Insomnia Last Admin: 06/17/22 21:05 Dose: 50 mg Ibuprofen (Ibuprofen 800 Mg Tablet) 800 mg PO Q8H PRN PRN Reason: Pain, Moderate (Pain Scale 4-6 Last Admin: 06/26/22 06:57 Dose: 800 mg Lactic Acid (Ammonium Lactate 12 % Cream 140 Gm Tube) 1 appl TOPICAL BID PRN; Protocol PRN Reason: Dry Skin Last Admin: 06/17/22 09:09 Dose: 1 appl Lorazepam (Lorazepam 1 Mg Tablet) 1 mg PO Q6H PRN PRN Reason: severe anxiety Last Admin: 06/24/22 13:43 Dose: 1 mg Magnesium Hydroxide (Milk Of Magnesia 30 Ml Oral.Susp) 30 ml PO DAILY PRN PRN Reason: Constipation Last Admin: 06/22/22 14:54 Dose: 30 ml Magnesium Oxide (Magnesium Oxide 400 Mg Tablet) 400 mg PO DAILY [facility] Last Admin: 06/26/22 08:23 Dose: 400 mg Midodrine (Midodrine Hcl 5 Mg Tablet) 5 mg PO TID@0900,1300,1800 [facility] Last Admin: 06/26/22 12:44 Dose: 5 mg Multi-Ingred Cream/Lotion/Oil/Oint (Mineral Oil/Petrolatum,White 106 Gm Tube) 1 appl TOPICAL DAILY PRN; Protocol PRN Reason: Dry Skin Nicotine (Nicotine 21 Mg Patch.Td24) 21 mg TRANSDERMA DAILY PRN PRN Reason: nicotine cravings Omeprazole (Omeprazole 20 Mg Capsule.) 20 mg PO DAILY@0630 [facility] Last Admin: 06/26/22 06:56 Dose: 20 mg Prazosin HCl (Prazosin Hcl 1 Mg Capsule) 1 mg PO BEDTIME [facility]; Protocol Last Admin: 06/25/22 21:12 Dose: Not Given Pregabalin (Pregabalin 150 Mg Capsule) 150 mg PO TID@0630,1230,2030 [facility] Last Admin: 06/26/22 12:44 Dose: 150 mg Senna/Docusate Sodium (Sennosides/Docusate Sodium Tablet) 1 tab PO BID [facility] Last Admin: 06/26/22 08:20 Dose: 1 tab Trolamine Salicylate (Trolamine Salicylate 10 % Cream 141 Gm Tube) 1 appl TOPICAL QID PRN; Protocol PRN Reason: low back pain Last Admin: 06/24/22 11:31 Dose: 1 appl Zinc Oxide (Zinc Oxide (Triple Paste) 56.7 Gm Oint) 1 appl TOPICAL DAILY [facility]; Protocol Last Admin: 06/26/22 07:05 Dose: 1 appl Allergies Allergies Allergy/AdvReac Type Severity Reaction Status Date / Time aspirin [ASPIRIN] Allergy Unknown SENSITIVITY Verified 04/30/22 13:04 lisinopril Allergy Unknown falls, Verified 04/30/22 13:04 muscle weakness Assessment & Plan Assessment & Plan (1) Healing skin ulcer, limited to breakdown of skin: Status: Acute Code(s): L98.491 - Non-pressure chronic ulcer of skin of other sites limited to breakdown of skin Assessment and Plan: 56-year-old female with left wrist wound which is healing and fully epithelialized. Recommend topical zinc oxide to the periwound, particularly over the scarred area. Okay if zinc oxide adheres to the entire area. Small gauze such as 2x2 with spandage is to keep it covered until it is completely contracted may benefit the patient. No indication for wound care follow-up after discharge. (2) Borderline personality disorder: Status: Acute Code(s): F60.3 - Borderline personality disorder (3) Labile blood pressure: Status: Acute Code(s): R09.89 - Other specified symptoms and signs involving the circulatory and respiratory systems (4) Suicidal ideation: Status: Acute Code(s): R45.851 - Suicidal ideations (5) Depression: Status: Acute Code(s): F32.A - Depression, unspecified (6) Acute anxiety: Status: Acute Code(s): F41.9 - Anxiety disorder, unspecified Plan 05/16: continue outpt meds for now. cardiology consult for mgmt of BP and opinion on QTc mgmt. OT eval for ambulation and need for fci. build rapport, consider mood/anxiety medication as indicated. Patient educated on: diagnosis and substance abuse 05/17: per OT: She should continue using the walker. Her biggest issue is her orthostatic hypotension and frequently syncopizes (not in past 2 weeks though). As for her ability to live independently, yes, from a purely musculoskeletal standpoint. per Cardiology: 1) reduce midodrine to 5 mg TID, give 30 min prior to meals. 2) reduce carvedilol to 12.5 BID. 3) continue fludrocortisone as is. 4) BP Q3H WA. 5) hold midodrine for SBP > 150 or DBP > 95. 6) hold fludrocortisone if SBP > 150. 7) hold carvedilol if SBP < 110. 8) replete Mg to above 2. 9) replete K to above 4. 10) QTc up to 500 ms is acceptable for now. psych: stable presentation. 05/18: BP improved. gabapentin increased to 900 QID as of today.? otherwise continue current mgmt. 05/19: continue tx. 05/20: No changes to current treatment plan.? Will adjust Advil to 800 mg as needed up to 3 times per day consistent with patient's home regimen 05/21: No changes to current treatment plan. 05/22: wrist brace for carpal tunnel complaints.? ativan 1 mg daily PRN for severe anxiety, only while hospitalized.? very wordy today, seemingly evasive about discussing substantive issues regarding her Tx here and dispo planning. 05/23: extremely denigrating and accusatory, asserting staff enjoy her suffering and are intentionally doing things to make her suffer.? demanding medical attention for myriad complaints, historical and chronic as well as more recent.? alleging withholding of care.? demanding to have a wheelchair, states she cannot ambulate due to foot pain.? PT eval for wheelchair, T/C med consult for prominent and acute complaints. 05/24: declines mtg with MD, saying she is not in the mood.? interdisciplinary mtg held re pt's care, plan to pursue more collateral, check [facility], refer for [facility] services made. 05/25: quite angry/pressured with litany of complaints today.? [facility] .? placed on 1:1 for SIB. 05/26: periods of collaboration and calm today, interspersed with the recent aggressiveness and criticality.? OBS decreased to Q5 min checks at pt request.? she reports she will begin to take her medications again in response.? denying any SIBI, states she will refrain from engaging in such. 05/28/22 Continue current regime, as she reports she believes it is beginning to work. Discussion of feeling hurt by some team interactions with her-continue to educate re process of therapy and rationale for questions she is asked. 05/29: denies banging her head over weekend, yet RN note from 05/28 states she did so.? more pleasant today, focussed on scapegoating particular staff member rather than the class as a whole.? paranoid unnamed staff are messing with her, however, such as my messing up her meal orders, as apparently happened twice over the weekend.? divulged trauma-related nightmares and insomnia, considering prazosin (cardiology consulted). 05/30: calm, cooperative, not aggressive or critical today.? agrees to trial of wellbutrin as adjunctive anti-depressant. 05/31: calm, cooperative.? increasingly future-oriented and collaborative.? will submit [facility] application.? no side effects from medications.? continue current mgmt, increase wellbutrin after 2 more days. 06/01: pleasant, even cheery.? no complaints.? one more day of wellbutrin 150, then increase to 300.? revisit possibility of prazosin for nightmares and insomnia in PTSD. 06/02: continues pleasant and cheery.? asking for gabapentin taper and lyrica titration.? wellbutrin to be increased to 300 mg as of tomorrow.? otherwise continue current mgmt. 06/03: No med changes, pt declines to meet with T/W, denies concerns 06/04: No med changes, continue with gabapentin taper and lyrica titration 06/05: No med changes, continue with gabapentin taper and lyrica titration 06/06: DC gabapentin, double lyrica to 150 TID. 06/07: no change in presentation.? not aggressive or critical.? neuropathy improved with lyrica.? DM contacted and encouraged to expedite case. 06/08: [facility] to meet with pt next sunday.? pt c/o unsteadiness, short-term memory loss.? neuropathy improved. 06/02: neuropathy continues improved.? bright, social, engaging while still reporting intent to suicide. 06/10: Continue current tx plan. 06/11: Continue current tx plan.? 06/12: Continue tx plan. 06/13: schedule tylenol for non-neuropathic foot pain.? lyrica helpful for neuropathic foot pain.? met with [facility] this afternoon. 06/14: felt [facility] mtg went well, hopeful.? c/o nightmares, prazosin 1 mg added at HS (per convo with cards, if there is a psychiatric indication, it may be added.? there is no cardiac/circulatory system contraindication).? also hydroxyzine 50 added at HS for insomnia.? ativan PRNs increased to 1.5 mg each per pt request.? appears bright, social, largely WNL as ever for recent weeks. 06/15: stable.? changed params on HS BP meds to make it more likely she will receive them; she is advocating for such and willing to take responsibility for any negative outcome.? awaiting word from [facility] on dispo options and support level. 06/16: stable.? had prazosin last night, no ill effects.? no nightmares.? continue current mgmt, awaiting word from [facility]. 06/17 continue tx. 06/18 continue tx. 06/19: renew ativan orders.? otherwise continue current mgmt.? awaiting word from [facility] on whether or not they will accept her.? plan to DC to [facility] respite. 06/20: zinc oxide to wound. otherwise no change in mgmt. [facility] to give word tomorrow. 06/21: accepted for [facility] services. overheard what she believes was staff talking about how she has been here too long, became suicidal and made provocative statements. in discussion, wanting to focus on the positive and future rather than get stuck in the bullshit. continue current mgmt. per , potentially discharge early next week. 06/22: remains bright and cheery, looking forward to [facility] services and discharge to respite next week. decrease ativan PRN dosing from 1.5 mg to 1 mg. otherwise no change to mgmt. 06/23: stable. planning for [facility] mtg next sunday and DC to respite sometime next week. continue current mgmt. 06/25/2022: No changes to current plan. 06/26: continue current mgmt. Reason for contiued inpatient stay Substantial Risk for: inability to function and rapid decompensation Time Spent With Patient Time: Total time managing care of this patient today _25___ minutes.
[2022-06-26 18:33] VITALS: BP 137/88; PULSE 89
[2022-06-26 20:45] VITALS: BP 137/77; PULSE 81; RESP 18; TEMP 35.9; O2SAT 99
[2022-06-26] MEDS: Prazosin HCL 1 MG CAPSULE PO (20:49)
[2022-06-27] MEDS: Ibuprofen 800 MG TABLET PO ×2 (07:00→20:45)
[2022-06-27] MEDS: Pregabalin 150 MG CAPSULE PO ×3 (07:00→20:42)
[2022-06-27] MEDS: Omeprazole 20 MG CAPSULE.DR PO (07:01)
[2022-06-27 08:30] VITALS: BP 123/83; PULSE 16; RESP 89; TEMP 36.6; O2SAT 98
[2022-06-27] MEDS: carvediloL 12.5 MG TABLET PO ×2 (08:47→20:42)
[2022-06-27] MEDS: DULoxetine HCl 60 MG CAPSULE.DR PO (08:47)
[2022-06-27] MEDS: buPROPion HCl XL 300 MG TAB.ER.24H PO (08:47)
[2022-06-27] MEDS: Sennosides/Docusate Sodium TABLET 1 TAB PO ×2 (08:47→20:42)
[2022-06-27] MEDS: Atorvastatin Calcium 80 MG TABLET PO (08:48)
[2022-06-27] MEDS: Aspirin Enteric Coated 81 MG TABLET.DR PO (08:48)
[2022-06-27] MEDS: Magnesium Oxide 400 MG TABLET PO (08:48)
[2022-06-27] MEDS: Midodrine HCl 5 MG TABLET PO (08:48)
[2022-06-27] MEDS: Clopidogrel Bisulfate 75 MG TABLET PO (08:48)
[2022-06-27] MEDS: Fludrocortisone Acetate 0.1 MG TABLET PO (08:49)
[2022-06-27 13:18] VITALS: BP 149/79; PULSE 82; RESP 18; O2SAT 100
[2022-06-27 14:28] LABS: COVID-19 Test Negative (Negative); IDNOW Serial# 16C4AD1C
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
[2022-06-27 18:19] VITALS: BP 173/86; PULSE 90
[2022-06-27 20:41] VITALS: BP 144/65; PULSE 91; RESP 18; TEMP 36.1; O2SAT 99
[2022-06-27] MEDS: Prazosin HCL 1 MG CAPSULE PO (20:42)
[2022-06-27] MEDS: Milk of Magnesia 30 ML ORAL.SUSP PO (20:45)
[2022-06-28 06:00] VITALS: BP 126/74; PULSE 81; RESP 20; TEMP 36.6; O2SAT 100
[2022-06-28] MEDS: Pregabalin 150 MG CAPSULE PO (06:13)
[2022-06-28] MEDS: Omeprazole 20 MG CAPSULE.DR PO (06:13)
[2022-06-28] MEDS: Ibuprofen 800 MG TABLET PO (06:16)
[2022-06-28] MEDS: DULoxetine HCl 60 MG CAPSULE.DR PO (08:06)
[2022-06-28] MEDS: carvediloL 12.5 MG TABLET PO (08:06)
[2022-06-28] MEDS: buPROPion HCl XL 300 MG TAB.ER.24H PO (08:06)
[2022-06-28] MEDS: Clopidogrel Bisulfate 75 MG TABLET PO (08:06)
[2022-06-28] MEDS: Atorvastatin Calcium 80 MG TABLET PO (08:06)
[2022-06-28] MEDS: Aspirin Enteric Coated 81 MG TABLET.DR PO (08:06)
[2022-06-28] MEDS: Sennosides/Docusate Sodium TABLET 1 TAB PO (08:06)
[2022-06-28] MEDS: Fludrocortisone Acetate 0.1 MG TABLET PO (08:06)
[2022-06-28] MEDS: Magnesium Oxide 400 MG TABLET PO (08:06)
--- NOTE | 2022-06-28 10:53 | PC.NURSE ---
Patient easily engaged, full range of affect. Reports mood is stable I feel good . Denies depression, denies SI/HI plan or intent at this time. Denies self harming ideation. Denies perceptual disturbances, no overt psychosis or expressed delusions. Reports she is going to respite following discharge. 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 Discharge paperwork reviewed with patient reported understanding. Medications reviewed reports understanding, appointments reviewed reports understanding. Crisis numbers provided to patient. All belongings taken with patient.
== END 2022-06-28 10:44 | DRG 752 ==
LOC: HO.ED 12:07 → HO.PADLT16 19:41
PROVIDERS: Physician Assistant Medical; Admitting Provider Psychiatry & Neurology Psychiatry; Emergency Provider Emergency Medicine; PCP Internal Medicine; Visit Provider Psychiatry & Neurology Psychiatry
DX: F60.3 Borderline personality disorder (principal); R45.851 Suicidal ideations; E11.40 Type 2 diabetes mellitus with diabetic neuropathy, unspecified; Z91.14 Patient's other noncompliance with medication regimen; F32.A Depression, unspecified; F41.9 Anxiety disorder, unspecified; F17.210 Nicotine dependence, cigarettes, uncomplicated; I25.10 Atherosclerotic heart disease of native coronary artery without angina pectoris; Z71.6 Tobacco abuse counseling; Z20.822 Contact with and (suspected) exposure to COVID-19; R94.31 Abnormal electrocardiogram [ECG] [EKG]; Z62.810 Personal history of physical and sexual abuse in childhood; Z88.6 Allergy status to analgesic agent; Z88.8 Allergy status to other drugs, medicaments and biological substances; Z79.02 Long term (current) use of antithrombotics/antiplatelets; Z79.82 Long term (current) use of aspirin; Z79.899 Other long term (current) drug therapy
CPT/HCPCS: 36415; 70553; 73630; 80053; 80061; 80307; 81003; 82077; 82607; 82746; 83036; 83690; 83735; 84439; 84443; 85025; 87502; 87635; 90686; 93005; 93971; 97162; 97165; 99285; A9585

== ENCOUNTER 2022-12-27 17:00 | Emergency (ER) | payer OTHER, SELFPAY ==
--- NOTE | ~2022-12-27 | CT_ITS ---
EXAMINATION: CT HEAD WITHOUT CONTRAST CLINICAL INFORMATION: Headache status-post trauma. COMPARISON: CT brain dated 03/25/2022; MRI brain dated 05/26/2022. TECHNIQUE: Contiguous axial imaging was performed from the skull base to vertex without intravenous administration of contrast. Multiplanar reformatted images are submitted. This CT examination was performed using dose optimization techniques as appropriate, variously including the following: *Automated exposure control *Adjustment of mA and/or kV according to patient size (this includes techniques or standardized protocols for targeted exams where dose is matched to indication/reason for exam; i.e. extremities or head) *Use of iterative reconstruction technique DLP: 1381 mGy-cm FINDINGS: The ventricular system is normal in size and configuration. The bilateral hemispheres and the cerebellum show no acute mass, hemorrhage, infarction or extra-axial collection. The basilar cisterns are patent, and the sulci are not widened. There is mild patchy low attenuation change in the periventricular white matter spaces. There is no fracture. A large frontal scalp hematoma is noted. There is marked left maxillary sinusitis. The mastoid air cells are well aerated and clear. CT/CT head/brain wo IV con IMPRESSION: 1. A large frontal scalp hematoma is noted, without underlying fracture. 2. No acute intracranial finding is seen. 3. There is mild patchy low attenuation change redemonstrated in the periventricular white matter spaces, commonly associated with chronic microangiopathy. 4. There is left maxillary sinusitis.
--- NOTE | ~2022-12-27 | CT_ITS ---
EXAMINATION: CT FACIAL BONES WITHOUT CONTRAST CLINICAL INFORMATION: Trauma COMPARISON: Head CT from the same day TECHNIQUE: Axial images through the facial bones without IV contrast. Sagittal and coronal reconstructions on the technologist workstation were performed. This CT examination was performed using dose optimization techniques as appropriate, variously including the following: *Automated exposure control *Adjustment of mA and/or kV according to patient size (this includes techniques or standardized protocols for targeted exams where dose is matched to indication/reason for exam; i.e. extremities or head) *Use of iterative reconstruction technique DLP: 719 mGy-cm FINDINGS: Nondisplaced right nasal bone fractures. There is no associated soft tissue swelling and this may not be acute. Clinical correlation recommended. No other fracture. Deviated nasal septum to the left. Membranous soft tissue thickening and polypoid changes in the in the left maxillary sinus. Paranasal sinuses are otherwise clear. Mastoid air cells and middle ears are clear. The temporomandibular joints are normal. The orbits are normal. Diffuse cervical lymphadenopathy. Bilateral carotid calcification. Small calcifications in both submandibular glands and right parotid gland. CT/CT facial bones wo IV con IMPRESSION: Right nasal bone fractures. There is no associated soft tissue swelling and these may not be acute. Clinical correlation recommended. No other fracture. Inflammatory changes in the left maxillary sinus. Bilateral carotid calcification. Diffuse shotty cervical lymphadenopathy. Small calcifications in both submandibular glands and right parotid gland.
--- NOTE | ~2022-12-27 | CT_ITS ---
EXAMINATION: CT CERVICAL SPINE WITHOUT CONTRAST CLINICAL INFORMATION: Pain status-post trauma. COMPARISON: None available. TECHNIQUE: Doppler addition of intravenous contrast, multiple contiguous multidetector transaxial sections are obtained through the cervical spine. Multiplanar reformatted images are submitted. This CT examination was performed using dose optimization techniques as appropriate, variously including the following: *Automated exposure control *Adjustment of mA and/or kV according to patient size (this includes techniques or standardized protocols for targeted exams where dose is matched to indication/reason for exam; i.e. extremities or head) *Use of iterative reconstruction technique DLP: 356.12 mGy-cm FINDINGS: There is reversal of the normal lordotic curvature. At C5-C6 and C6-C7, there is moderate disc space narrowing. There is anterior spondylosis extending from C4-C5 through C6-C7 and at T1-T2 and T2-T3. No acute fracture or spondylolisthesis is seen. The posterior elements are intact. There is multi-level cervical facet arthropathy. The dens is intact. No prevertebral soft tissue swelling is seen. The bilateral lung apices are clear. CT/CT cervical spine wo IV con IMPRESSION: 1. No acute fracture or spondylolisthesis is seen. 2. There is multi-level cervical and upper thoracic degenerative disc disease, spondylosis and facet arthropathy. Degenerative disc disease is most pronounced at C5-C6 and C6-C7, where it is moderate. 3. There is reversal of the normal lordotic curvature, which can be associated with muscle spasm Fleischner guidelines were followed.
[2022-12-27 17:55] VITALS: BP 139/94; BP 140/86; PULSE 111; PULSE 114; RESP 16; TEMP 37.2; O2SAT 96; O2SAT 99; BMI 31.7
--- NOTE | 2022-12-27 18:05 | ECG_ITS ---
Test Reason : QTC Blood Pressure : / mmHG Vent. Rate : 093 BPM Atrial Rate : 093 BPM P-R Int : 162 ms QRS Dur : 084 ms QT Int : 412 ms P-R-T Axes : 025 -33 019 degrees QTc Int : 512 ms Normal sinus rhythm Left axis deviation Minimal voltage criteria for LVH, may be normal variant ( [place] product ) Prolonged QT Abnormal ECG When compared with ECG of 16-MAY-2022 15:45, No significant change was found Referred By: Edmar Lauren Electronically Signed By:John Goodson
--- NOTE | 2022-12-27 18:16 | PC.NURSE ---
pt a&o x4, calm and cooperative. UA obtained. changed over to hospital attire, belongings in locker #11 in POD.
[2022-12-27] MEDS: Lidocaine HCl 1%/Epi 1:100,000 10 ML VIAL INFILTRATI (18:17)
--- NOTE | 2022-12-27 18:27 | ED.GENADULT ---
HPI - General Adult General Chief complaint: Psychiatric Symptoms Stated complaint: lac to left wrist, si, calm, per ems Time Seen by Provider: 12/27/22 17:28 Source: patient, RN notes reviewed and old records reviewed Mode of arrival: EMS Limitations: no limitations History of Present Illness HPI narrative: 57-year-old female with past medical history significant for peripheral neuropathy, cardiomyopathy, diabetes, coronary artery disease, borderline personality disorder, depression presents for evaluation of suicidal ideation. Patient reports that she has had on off suicidal ideation since her childhood due to previous trauma Patient reports that she was admitted psychiatrically from December 08 at [facility] The patient actually presents from [facility]. She states that she was recently at [facility] after self-harm from ?bashing my head against the wall. ? Patient states that she does not like at [facility] and she was ?cutting myself with my thumb nail and my tag. She sustained a laceration to her left wrist Patient states that she signed a voluntary 3 day stay at [facility] that should release her on Sunday Related Data Previous Rx's Medication Instructions Recorded ammonium lactate 12 % topical cream 1 appl topical BID bilateral feet 06/27/22 30 days #100 grams blood pressure monitor #1 ea 06/27/22 white petrolatum-mineral oil 1 appl topical DAILY PRN Dry Skin 06/27/22 topical cream (Dermacerin topical 30 days #100 grams cream) gabapentin 300 mg capsule 900 mg PO QID neuropathic pain 10 06/29/22 days #120 caps aspirin 81 mg tablet,delayed 81 mg PO DAILY #90 tabs 07/21/22 release atorvastatin 80 mg tablet 80 mg PO DAILY #90 tabs 07/21/22 bupropion HCl 300 mg 24 hr tablet, 300 mg PO DAILY #90 tabs 07/21/22 extended release clopidogrel 75 mg tablet 75 mg PO DAILY #90 tabs 07/21/22 duloxetine 60 mg capsule,delayed 60 mg PO DAILY #90 caps 07/21/22 release fludrocortisone 0.1 mg tablet 0.1 mg PO DAILY #90 tabs 07/21/22 magnesium oxide 400 mg (241.3 mg 400 mg PO DAILY #90 tabs 07/21/22 magnesium) tablet midodrine 5 mg tablet 5 mg PO TID 30 days #270 tabs 07/21/22 pantoprazole 20 mg tablet,delayed 20 mg PO DAILY 30 days #90 tabs 07/21/22 release prazosin 1 mg capsule 1 mg PO BEDTIME #90 caps 07/21/22 sennosides 8.6 mg-docusate sodium 1 tab PO BID 30 days #180 tabs 07/21/22 50 mg tablet (Senna Plus) ibuprofen 800 mg tablet 800 mg PO BID PRN Pain, Moderate 08/25/22 (Pain Scale 4-6 #60 tabs gabapentin 600 mg tablet 600 mg PO TID #90 tabs 08/31/22 carvedilol 12.5 mg tablet 12.5 mg PO BID #90 tabs 09/27/22 Allergies Allergy/AdvReac Type Severity Reaction Status Date / Time aspirin [ASPIRIN] Allergy Unknown SENSITIVITY Verified 07/17/22 09:25 lisinopril Allergy Unknown falls, Verified 07/17/22 09:25 muscle weakness Review of Systems Constitutional: Constitutional: Reports as per HPI, Denies chills, Denies fatigue, Denies fever(s) and Denies headache(s) ENT: Denies headache(s) Cardiovascular: Cardiovascular: Denies chest pain and Denies dyspnea Respiratory: Respiratory: Denies cough and Denies dyspnea Gastrointestinal: Gastrointestinal: Denies abdominal pain, Denies constipation and Denies vomiting Genitourinary: Genitourinary: Denies dysuria Integumentary/Breasts: Skin/Breast: Reports wounds Neurologic: Denies headache(s) and Denies focal weakness Psychiatric: Psychiatric: Reports suicidal ideation Endocrine: Endocrine: Denies fatigue Hematologic/Lymphatic: Hematologic/Lymphatic: Reports easy bleeding and Reports easy bruising [facility] Past Medical History Medical History (Updated 12/27/22 @ 21:34 by Edmar Lauren) Aortic stenosis CAD (coronary artery disease) Cardiomyopathy Depression Dyslipidemia GERD (gastroesophageal reflux disease) History of mammogram HTN (hypertension) Hyperglycemia Low blood magnesium level Near syncope Neuropathy Normal Pap smear Orthostatic hypotension Orthostatic hypotension dysautonomic syndrome Peripheral neuropathy QT prolongation Syncope Urinary incontinence Surgical History Breast abscess CTS (carpal tunnel syndrome) H/O cardiac catheterization (~01/2020) H/O colonoscopy History of ankle surgery Family History Family History Father No problems noted. Mother No problems noted. Brother No problems noted. Sister No problems noted. Sister No problems noted. Son No problems noted. Social History Social History Household Members: None Housing: Apartment Do you presently have visiting nurse or other home services: No Alcohol intake: former Patient Tobacco Use Status: Former Tobacco user (few months ago) Tobacco use type: Cigarette Cigarette Packs Per Day: 1 Cigarettes Per Day: 20.0 Years Smoked: 20 Smoked in Last 30 Days: No e-Cigarette/Vaping Use: Former Use Second Hand Smoke Exposure: No Substance Use Type: Marijuana Advance Directives: No Advance Directives Information Provided: Yes Patient : No service: No Current occupational status: unemployed Sexual orientation: Don't Know Cognitive needs: No Hearing needs: No Vision needs: Yes Physical Exam ED Vital Signs: Vital Signs - 24 hr 12/27/22 17:55 12/27/22 20:38 Temperature 99.0 F Pulse Rate 111 H 98 Respiratory Rate 16 18 Blood Pressure 139/94 H 135/85 Pulse Oximetry 96 99 Oxygen Delivery Method Room Air Room Air BMI result Body Mass Index 31.7 Const General: comfortable, no acute distress, alert and awake Nutritional Appearance: well nourished Orientation/consciousness: patient oriented x3 HENMT Other: Patient has significant ecchymosis from the center of the forehead extending bilaterally down both sides the faced although it down to the chin. Bilateral periorbital ecchymosis. Patient is a very small abrasion to the side of the forehead but no other open wounds to the forehead or scalp Head: No normocephalic, No atraumatic, Yes hematoma and Yes periorbital ecchymosis Throat: Yes posterior oropharynx normal Eyes Eyelids: Yes eyelids normal Conjunctivae: conjunctivae normal Sclerae: sclerae normal Corneas: corneas normal Pupils: Equal, round and reactive pupils present EOM: EOMs intact bilaterally Neck Neck: Yes full ROM Resp Effort & Inspection: normal respiratory effort, able to speak in complete sentences and not labored Cardio Rate: regular rate Rhythm: regular rhythm Skin Other: 3 cm linear, partial-thickness laceration to the ventral surface of left wrist on the radial side. Minimal active bleeding General skin exam: elasticity normal Neuro General: patient oriented x3 Cranial nerves: Yes CN's II-XII intact bilaterally, Yes Equal, round and reactive pupils present and Yes Bilaterally intact EOM present Cognition (Neuro): normal cognition Extrem Other: Moving all extremities well without any obvious deformities Course Reevaluation(s) Reevaluation #1: Patient's wound is sutured, CT scans did not show any acute pathology but does show a large frontal scalp hematoma consistent with exam. No intracranial hemorrhage. No facial fractures noted. Patient is medically cleared for crisis evaluation. Patient does have a mild anemia but no evidence for transfusion and no active bleeding at this time Time: 20:39 Reevaluation #2: Apparently, the patient remains on a Section 12 admitted to [facility] inpatient psych. She was sent here to have her laceration repaired in for medical clearance. She does not require another care team evaluation as she remains under the care of a psychiatric hospital. The patient will be discharged back to [facility] Time: 21:33 Medications Administered Discontinued Medications Generic Name Dose Route Start Last Admin Trade Name Freq PRN Reason Stop Dose Admin Lidocaine/Epinephrine 10 ml 12/27/22 18:14 12/27/22 18:17 Lidocaine Hcl 1%/Epi 1:100,000 10 Ml Vial INFILTRATI 12/27/22 18:15 10 ml ONCE ONE Administration Procedures Laceration Laceration 1: Site: upper extremity Side (If applicable): right (Wrist) Size (cm): 3 Description: linear Depth: simple, single layer Local Anesthetic: lidocaine 1% and with epi Amount of anesthesia used (mL): 5 Pre-repair: wound explored Skin layer closed with: nylon Size (cm): 4-0 Number of sutures: 5 Technique: simple, interrupted Medical Decision Making Medical Decision Making [facility] Narrative: Patient presents with suicidal ideation and self-harm. Will get a CT scan the brain, cervical spine and facial bones given the blunt force trauma from hitting her head against the wall. The patient also require labs and medical clearance to see crisis again. The patient's wound will require closure. Wound was sutured by PA student, Karey under my docs supervision. The patient was offered tetanus booster but declined Differential Diagnosis Differential Diagnoses: The differential diagnosis associated with the presentation includes Suicidal ideation Depression Self-harm Contusion Intracranial hemorrhage Calvarial fracture Facial fracture Lab Data [facility] Lab Attestation statement: I reviewed the patient's lab results. (Patient has a mild anemia with a hemoglobin of 9.7 and hematocrit of 30.1. Platelet count within normal limits. Patient's electrolytes are within normal limits, LFTs within normal limits.) 12/27/22 19:59 12/27/22 19:59 Labs: Lab Results 12/27/22 12/27/22 12/27/22 Range/Units 19:59 19:59 19:59 WBC 7.7 (4.8-10.8) X10*3/uL RBC 3.27 L D (4.20-5.50) X10*6/uL Hgb 9.7 L D (12.0-16.0) g/dl Hct 30.1 L D (37.0-47.0) % MCV 92.0 (80.0-98.0) fL MCH 29.7 (27.0-33.0) pg MCHC 32.2 (31.0-35.0) g/dl RDW 13.2 (11.0-16.0) % Plt Count 268 (160-400) X10*3/uL MPV 9.9 (9.4-12.3) fL Immature Gran % (Auto) 0.3 (0.0-0.4) % Neut % (Auto) 48.2 (45-73) % Lymph % (Auto) 41.1 H (20-40) % [place] % (Auto) 7.7 (2-11) % Eos % (Auto) 2.3 (0-4) % Baso % (Auto) 0.4 (0-2) % Lymph # (Auto) 3.2 (1.2-4.9) X10*3/uL [place] # (Auto) 0.6 (0.1-1.2) X10*3/uL Eos # (Auto) 0.2 (0.0-0.4) X10*3/uL Baso # (Auto) 0.0 (0.0-0.2) X10*3/uL Abs Immat Gran (auto) 0.02 (0.00-0.03) X10*3/uL Absolute Neuts (auto) 3.7 (2.0-8.3) x10*3/uL Absolute Nucleated RBC 0.000 (0.0-0.012) X10*3/uL Nucleated RBC % (auto) 0.0 (0.0-0.2) /100WBC PT 11.8 (10.0-13.1) SEC INR 1.0 (0.9-1.1) APTT 29.6 (26.0-36.4) SEC Sodium 142 (135-145) mmol/L Potassium 4.7 (3.3-5.1) mmol/L Chloride 108 (96-108) mmol/L Carbon Dioxide 25 (22-29) mmol/L Anion Gap TNP BUN 12 (9-16) mg/dL Creatinine 0.67 (0.5-1.4) mg/dL Estim Creat Clear Calc 113.7 Estimated GFR > 60 Random Glucose 114 (60-115) mg/dL Calcium 9.3 (8.4-10.2) mg/dL Total Bilirubin 0.5 (0.0-1.0) mg/dL AST 25 (5-31) U/L ALT 19 (0-31) U/L Alkaline Phosphatase 104 (39-117) U/L Total Protein 6.9 (6.5-8.0) g/dL Albumin 3.9 (3.5-5.0) g/dL Lipase 15 (8-78) U/L Urine Color Urine Appearance Urine pH (5.0-9.0) Ur Specific [place] (1.005-1.025) Urine Protein (Neg-Trace) mg/dL Urine Glucose (UA) (Negative) mg/dL Urine Ketones (Negative) mg/dL Urine Blood (Negative) Urine Nitrite (Negative) Ur Leukocyte Esterase (Negative) Urine RBC (0-2) /HPF Urine WBC (0-5) /HPF Ur Squamous Epith Cells (0-2) /HPF Urine Bacteria (None Seen) Hyaline Casts (0-2) /LPF Salicylates (15-30) mg/dL Urine Opiates Screen (Not Detect) Urine Fentanyl Screen (Not Detect) Acetaminophen (<30) mcg/mL Ur Barbiturates Screen (Not Detect) Ur Phencyclidine Scrn (Not Detect) Ur Amphetamines Screen (Not Detect) U Benzodiazepines Scrn (Not Detect) Urine Cocaine Screen (Not Detect) U Marijuana (THC) Screen (Not Detect) Ethyl Alcohol mg/dL COVID-19 (STACIA) (Negative) COVID-19 Clin Com 12/27/22 12/27/2212/27/23 Range/Units 19:59 19:59 20:00 WBC (4.8-10.8) X10*3/uL RBC (4.20-5.50) X10*6/uL Hgb (12.0-16.0) g/dl Hct (37.0-47.0) % MCV (80.0-98.0) fL MCH (27.0-33.0) pg MCHC (31.0-35.0) g/dl RDW (11.0-16.0) % Plt Count (160-400) X10*3/uL MPV (9.4-12.3) fL Immature Gran % (Auto) (0.0-0.4) % Neut % (Auto) (45-73) % Lymph % (Auto) (20-40) % [place] % (Auto) (2-11) % Eos % (Auto) (0-4) % Baso % (Auto) (0-2) % Lymph # (Auto) (1.2-4.9) X10*3/uL [place] # (Auto) (0.1-1.2) X10*3/uL Eos # (Auto) (0.0-0.4) X10*3/uL Baso # (Auto) (0.0-0.2) X10*3/uL Abs Immat Gran (auto) (0.00-0.03) X10*3/uL Absolute Neuts (auto) (2.0-8.3) x10*3/uL Absolute Nucleated RBC (0.0-0.012) X10*3/uL Nucleated RBC % (auto) (0.0-0.2) /100WBC PT (10.0-13.1) SEC INR (0.9-1.1) APTT (26.0-36.4) SEC Sodium (135-145) mmol/L Potassium (3.3-5.1) mmol/L Chloride (96-108) mmol/L Carbon Dioxide (22-29) mmol/L Anion Gap BUN (9-16) mg/dL Creatinine (0.5-1.4) mg/dL Estim Creat Clear Calc Estimated GFR Random Glucose (60-115) mg/dL Calcium (8.4-10.2) mg/dL Total Bilirubin (0.0-1.0) mg/dL AST (5-31) U/L ALT (0-31) U/L Alkaline Phosphatase (39-117) U/L Total Protein (6.5-8.0) g/dL Albumin (3.5-5.0) g/dL Lipase (8-78) U/L Urine Color Urine Appearance Urine pH (5.0-9.0) Ur Specific [place] (1.005-1.025) Urine Protein (Neg-Trace) mg/dL Urine Glucose (UA) (Negative) mg/dL Urine Ketones (Negative) mg/dL Urine Blood (Negative) Urine Nitrite (Negative) Ur Leukocyte Esterase (Negative) Urine RBC (0-2) /HPF Urine WBC (0-5) /HPF Ur Squamous Epith Cells (0-2) /HPF Urine Bacteria (None Seen) Hyaline Casts (0-2) /LPF Salicylates < 5.0 L (15-30) mg/dL Urine Opiates Screen (Not Detect) Urine Fentanyl Screen (Not Detect) Acetaminophen < 17 (<30) mcg/mL Ur Barbiturates Screen (Not Detect) Ur Phencyclidine Scrn (Not Detect) Ur Amphetamines Screen (Not Detect) U Benzodiazepines Scrn (Not Detect) Urine Cocaine Screen (Not Detect) U Marijuana (THC) Screen (Not Detect) Ethyl Alcohol < 10 mg/dL COVID-19 (STACIA) Negative (Negative) COVID-19 Clin Com See Note 12/27/22 12/27/22 Range/Units 20:00 Unknown WBC (4.8-10.8) X10*3/uL RBC (4.20-5.50) X10*6/uL Hgb (12.0-16.0) g/dl Hct (37.0-47.0) % MCV (80.0-98.0) fL MCH (27.0-33.0) pg MCHC (31.0-35.0) g/dl RDW (11.0-16.0) % Plt Count (160-400) X10*3/uL MPV (9.4-12.3) fL Immature Gran % (Auto) (0.0-0.4) % Neut % (Auto) (45-73) % Lymph % (Auto) (20-40) % [place] % (Auto) (2-11) % Eos % (Auto) (0-4) % Baso % (Auto) (0-2) % Lymph # (Auto) (1.2-4.9) X10*3/uL [place] # (Auto) (0.1-1.2) X10*3/uL Eos # (Auto) (0.0-0.4) X10*3/uL Baso # (Auto) (0.0-0.2) X10*3/uL Abs Immat Gran (auto) (0.00-0.03) X10*3/uL Absolute Neuts (auto) (2.0-8.3) x10*3/uL Absolute Nucleated RBC (0.0-0.012) X10*3/uL Nucleated RBC % (auto) (0.0-0.2) /100WBC PT (10.0-13.1) SEC INR (0.9-1.1) APTT (26.0-36.4) SEC Sodium (135-145) mmol/L Potassium (3.3-5.1) mmol/L Chloride (96-108) mmol/L Carbon Dioxide (22-29) mmol/L Anion Gap BUN (9-16) mg/dL Creatinine (0.5-1.4) mg/dL Estim Creat Clear Calc Estimated GFR Random Glucose (60-115) mg/dL Calcium (8.4-10.2) mg/dL Total Bilirubin (0.0-1.0) mg/dL AST (5-31) U/L ALT (0-31) U/L Alkaline Phosphatase (39-117) U/L Total Protein (6.5-8.0) g/dL Albumin (3.5-5.0) g/dL Lipase (8-78) U/L Urine Color Yellow Urine Appearance Clear Urine pH 5.5 (5.0-9.0) Ur Specific [place] 1.010 (1.005-1.025) Urine Protein Negative (Neg-Trace) mg/dL Urine Glucose (UA) Negative (Negative) mg/dL Urine Ketones Negative (Negative) mg/dL Urine Blood Negative (Negative) Urine Nitrite Negative (Negative) Ur Leukocyte Esterase Trace H (Negative) Urine RBC 0-2 (0-2) /HPF Urine WBC 0-5 (0-5) /HPF Ur Squamous Epith Cells 3-5 (0-2) /HPF Urine Bacteria None Seen (None Seen) Hyaline Casts 0-2 (0-2) /LPF Salicylates (15-30) mg/dL Urine Opiates Screen Not Detected (Not Detect) Urine Fentanyl Screen Not Detected (Not Detect) Acetaminophen (<30) mcg/mL Ur Barbiturates Screen POSITIVE H (Not Detect) Ur Phencyclidine Scrn Not Detected (Not Detect) Ur Amphetamines Screen Not Detected (Not Detect) U Benzodiazepines Scrn Not Detected (Not Detect) Urine Cocaine Screen Not Detected (Not Detect) U Marijuana (THC) Screen Not Detected (Not Detect) Ethyl Alcohol mg/dL COVID-19 (STACIA) (Negative) COVID-19 Clin Com Radiology Impression Radiologist Impression: Large frontal scalp hematoma but no intracranial hemorrhage, calvarial fracture or facial fractures Discharge Plan Discharge Clinical Impression: Suicidal ideation, Contusion of face, Laceration of left upper extremity Patient Disposition: er Psychiatric Hosp Transfer Details: Geovanna Astudillo Instructions: Laceration (ED) Additional Instructions: You had 5 sutures placed today that can be removed in 7-10 days Keep the area clean and dry Return for new or worsening symptoms Prescriptions: No Action aspirin 81 mg tablet,delayed release (DR/EC) 81 mg PO DAILY Qty: 90 1RF atorvastatin 80 mg tablet 80 mg PO DAILY Qty: 90 1RF bupropion HCl 300 mg tablet extended release 24 hr 300 mg PO DAILY Qty: 90 1RF clopidogrel 75 mg tablet 75 mg PO DAILY Qty: 90 1RF duloxetine 60 mg capsule,delayed release(DR/EC) 60 mg PO DAILY Qty: 90 1RF fludrocortisone 0.1 mg tablet 0.1 mg PO DAILY Qty: 90 1RF magnesium oxide 400 mg (241.3 mg magnesium) tablet 400 mg PO DAILY Qty: 90 1RF midodrine 5 mg tablet 5 mg PO TID 30 Days Qty: 270 1RF pantoprazole 20 mg tablet,delayed release (DR/EC) 20 mg PO DAILY 30 Days Qty: 90 1RF prazosin 1 mg capsule 1 mg PO BEDTIME Qty: 90 1RF Protocol: Hold for SBP< HOLD for SBP < : 100 sennosides-docusate sodium [Senna Plus] 8.6-50 mg tablet 1 tab PO BID 30 Days Qty: 180 1RF ibuprofen 800 mg tablet 800 mg PO BID PRN (Reason: Pain, Moderate (Pain Scale 4-6) Qty: 60 0RF gabapentin 600 mg tablet 600 mg PO TID Qty: 90 0RF carvedilol 12.5 mg tablet 12.5 mg PO BID Qty: 90 0RF Rx Instructions: Future refills from Cardiology Dermacerin Cream 1 appl topical DAILY PRN (Reason: Dry Skin) 30 Days Qty: 100 0RF Protocol: Apply to: Apply to: Affected area (DME) blood pressure monitor Kit See Rx Instructions .ROUTE .MEDSUPPLY Qty: 1 0RF Rx Instructions: BP MONITOR ammonium lactate 12 % cream 1 appl topical BID 30 Days Qty: 100 0RF gabapentin 300 mg capsule 900 mg PO QID 10 Days Qty: 120 0RF Rx Instructions: take until able to restart lyrica 150 mg PO TID. you may immediately stop gabapentin and start lyrica once you have the lyrica in hand. Interventions: [place]-Suicide Risk Severity Scale Last Done: 12/27/22 20:38
--- NOTE | 2022-12-27 19:06 | PC.NURSE ---
assumed care of pt at 1900 - per previous RN labs and ekg not yet obtained d/t low staffing. pt in CT scan, will obtain labs and ekg when pt returns . sitter in place.
--- NOTE | 2022-12-27 19:07 | MHC.EDTECH ---
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
--- NOTE | 2022-12-27 19:17 | PC.NURSE ---
ekg and labs being obtained now by PCT.
[2022-12-27 20:10] LABS: MANUAL DIFF FLAG NO
[2022-12-27 20:13] LABS: Basophils Percent Auto 0.4 % (0-2); Eosinophils Absolute Auto 0.2 X10*3/uL (0.0-0.4); Eosinophils Percent Auto 2.3 % (0-4); Hematocrit 30.1 % (37.0-47.0); Hemoglobin 9.7 g/dl (12.0-16.0); Imm Gran Abs Auto 0.02 X10*3/uL (0.00-0.03); Imm Gran Pct Auto 0.3 % (0.0-0.4); Lymphocytes Absolute Auto 3.2 X10*3/uL (1.2-4.9); Lymphocytes Percent Auto 41.1 % (20-40); Mean Corpuscular HGB Conc 32.2 g/dl (31.0-35.0); Mean Corpuscular Hemoglobin 29.7 pg (27.0-33.0); Mean Platelet Volume 9.9 fL (9.4-12.3); Monocytes Absolute Auto 0.6 X10*3/uL (0.1-1.2); Monocytes Percent Auto 7.7 % (2-11); Neutrophils Absolute Auto 3.7 x10*3/uL (2.0-8.3); Neutrophils Percent Auto 48.2 % (45-73); Platelet Count 268 X10*3/uL (160-400); Red Blood Count 3.27 X10*6/uL (4.20-5.50); Red Cell Distribution Width 13.2 % (11.0-16.0); White Blood Count 7.7 X10*3/uL (4.8-10.8)
[2022-12-27 20:20] LABS: Prothrombin Time 11.8 SEC (10.0-13.1)
[2022-12-27 20:20] LABS: Amphetamine Screen Urine Not Detected (Not Detect); Barbiturates, Urine POSITIVE (Not Detect); Benzodiazepines Screen Urine Not Detected (Not Detect); Cannabinoid Screen Urine Not Detected (Not Detect); Cocaine Screen Urine Not Detected (Not Detect); Fentanyl, urine Not Detected (Not Detect); Opiate Screen Urine Not Detected (Not Detect); Phencyclidine Screen Urine Not Detected (Not Detect)
[2022-12-27 20:23] LABS: Partial Thromboplastin Time 29.6 SEC (26.0-36.4)
[2022-12-27 20:29] LABS: COVID-19 Test Negative (Negative); IDNOW Serial# 08D9AD1C
[2022-12-27 20:38] VITALS: BP 135/85; PULSE 98; RESP 18; O2SAT 99
[2022-12-27 20:39] LABS: Alanine Aminotransferase 19 U/L (0-31); Albumin Level 3.9 g/dL (3.5-5.0); Alkaline Phosphatase 104 U/L (39-117); Aspartate Amino Transferase 25 U/L (5-31); Bilirubin Total 0.5 mg/dL (0.0-1.0); Blood Urea Nitrogen 12 mg/dL (9-16); Calcium 9.3 mg/dL (8.4-10.2); Chloride 108 mmol/L (96-108); Creatinine Clr Calc Pharmacy 113.7; Estimated Glomerular Filt Rate > 60; Ethanol < 10 mg/dL; Glucose Random 114 mg/dL (60-115); Lipase 15 U/L (8-78); Potassium 4.7 mmol/L (3.3-5.1); Sodium 142 mmol/L (135-145); Total Protein 6.9 g/dL (6.5-8.0)
[2022-12-27 20:58] LABS: Acetaminophen LAB < 17 mcg/mL (<30); Salicylate < 5.0 mg/dL (15-30)
[2022-12-27 21:27] LABS: Appearance Urine Clear; Color Urine Yellow; Glucose Urine UA Negative (Negative); Leukocyte Esterase Urine Trace (Negative); Nitrite Urine Negative (Negative); PH 5.5 (5.0-9.0); UMIC TRIGGER UACC YES; Urine Blood Negative (Negative); Urine Ketones Negative (Negative); Urine Protein Negative (Neg-Trace)
[2022-12-27 21:31] LABS: Bacteria Urine None Seen (None Seen); Hyaline Casts Urine 0-2 /LPF (0-2); RBC Urine 0-2 /HPF (0-2); WBC Urine 0-5 /HPF (0-5)
[2022-12-27 21:43] LABS: Carbon Dioxide 25 mmol/L (22-29)
--- NOTE | 2022-12-27 23:40 | MHC.EDTECH ---
Call out to [facility] to book BLS transport back to [facility] ETA of 45 mins was given
--- NOTE | 2022-12-27 23:51 | PC.NURSE ---
pt agreeable to go back to [facility] via ambulance. pt is admitted inpatient psychiatric there and is medically cleared by provider here in ED.
[2022-12-28 00:16] VITALS: BP 132/93; PULSE 90; RESP 18; TEMP 36.4; O2SAT 100
--- NOTE | 2022-12-28 00:17 | MHC.EDTECH ---
This tech assumed care of patient at 2300, hourly rounds completed and vitals were taken. Patient is awaiting transport back to [facility] at this time. 1-1 sitter at bedside for safety
--- NOTE | 2022-12-28 01:20 | PC.NURSE ---
report called to antonio egan staffing assistant. ambulance transfer back to facility now .
== END 2022-12-28 01:21 ==
PROVIDERS: Physician Assistant; Emergency Provider Internal Medicine
DX: S61.512A Laceration without foreign body of left wrist, initial encounter (principal); S00.83XA Contusion of other part of head, initial encounter; X83.8XXA Intentional self-harm by other specified means, initial encounter; R45.851 Suicidal ideations; F32.9 Major depressive disorder, single episode, unspecified; F60.3 Borderline personality disorder; E11.9 Type 2 diabetes mellitus without complications; I10 Essential (primary) hypertension; E78.5 Hyperlipidemia, unspecified; Z87.891 Personal history of nicotine dependence; Z20.822 Contact with and (suspected) exposure to COVID-19; Y93.9 Activity, unspecified; Y92.039 Unspecified place in apartment as the place of occurrence of the external cause; Y99.9 Unspecified external cause status; Z79.82 Long term (current) use of aspirin; Z79.899 Other long term (current) drug therapy
CPT/HCPCS: 12002; 36415; 70450; 70486; 72125; 80053; 80143; 80179; 80307; 81001; 83690; 85025; 85610; 85730; 87635; 93005; 99285

== ENCOUNTER → 2022-12-27 18:05 | Outpatient (BNV) | payer OTHER, SELFPAY | PROVIDERS: Emergency Provider Internal Medicine; Visit Provider Internal Medicine Cardiovascular Disease | DX: I45.81 Long QT syndrome (principal) | CPT/HCPCS: 93010 ==

== ENCOUNTER 2024-04-08 11:52 | Outpatient (AMB) | payer OTHER, SELFPAY ==
--- NOTE | 2024-04-08 12:12 | A.OFFPC_ITS ---
Vital Signs 04/08/24 12:13 Height 5 ft 9 in Weight 210 lb BMI 31.0 BP 128/80 Blood Pressure Location Lt brachial Position Sitting Pulse 98 Pulse Source Pulse Oximeter Pulse Oximetry (%) 98 Oxygen Delivery Method Room Air Intake Visit Reasons: PE Intake Note: Pt is here today for PE. Allergies aspirin [ASPIRIN] Allergy (Unknown, Verified 04/08/24 12:14) SENSITIVITY lisinopril Allergy (Unknown, Verified 04/08/24 12:14) falls, muscle weakness Medication List - Last Reconciled 04/08/24 by Kristen Paez MD ammonium lactate 12% 1 appl topical BID 30 days aspirin 81 mg PO DAILY atorvastatin 80 mg PO DAILY blood pressure monitor BP MONITOR bupropion HCl XL 300 mg PO DAILY carvedilol 12.5 mg PO BID clopidogrel 75 mg PO DAILY duloxetine 60 mg PO DAILY fludrocortisone 0.1 mg PO DAILY gabapentin 900 mg (3 x 300 mg) PO QID 10 days gabapentin 600 mg PO TID ibuprofen 800 mg PO BID PRN magnesium oxide 400 mg PO DAILY midodrine 5 mg PO TID 30 days pantoprazole 20 mg PO DAILY 30 days prazosin 1 mg See Protocol PO BEDTIME sennosides-docusate sodium 8.6-50 mg (Senna Plus) 1 tab PO BID 30 days white petrolatum-mineral oil (Dermacerin topical cream) 1 appl See Protocol topical DAILY PRN 30 days Tobacco use date assessed: 04/08/24 Dental Screening Dental Screen Date: 04/08/24 Did you have a dental visit in the last 12 months?: No Did you have a dental problem in the last 6 months where you did not have access to dental care?: Yes Was dental information given to patient?: Yes HPI PE HPI Details Patient presents for physical. She lives in the halfway. Patient has been on disability for diabetic neuropathy since 2007 controlled on gabapentin. She is established with psychiatrist for chronic depression but has not been taking medications recently. Patient denies suicide ideation [facility] Medical History (Updated 04/08/24 @ 13:15 by Kristen Paez MD) QT prolongation Low blood magnesium level Aortic stenosis Orthostatic hypotension dysautonomic syndrome Syncope Orthostatic hypotension Near syncope GERD (gastroesophageal reflux disease) Hyperglycemia Cardiomyopathy CAD (coronary artery disease) Depression Normal Pap smear Urinary incontinence Neuropathy History of mammogram Peripheral neuropathy Dyslipidemia HTN (hypertension) Surgical History H/O cardiac catheterization (~01/2020) H/O colonoscopy History of ankle surgery Breast abscess CTS (carpal tunnel syndrome) Family History Father No problems noted. Mother No problems noted. Brother No problems noted. Sister No problems noted. Sister No problems noted. Son No problems noted. Social History Household Members: None Housing: Other Housing Other:: Homeless halfway Do you presently have visiting nurse or other home services: No Alcohol intake: former Comment: 1:1 for safety Patient Tobacco Use Status: Current everyday Tobacco user Tobacco use type: Cigarette Cigarettes Per Day: 10 Years Smoked: 20 e-Cigarette/Vaping Use: Former Use Second Hand Smoke Exposure: No Substance Use Type: Marijuana service: No Current occupational status: unemployed Sexual orientation: Don't Know Cognitive needs: No Hearing needs: No Vision needs: Yes Questionnaire Thrive Questionnaire Date Thrive assessed: 04/08/24 I am a: Patient What is your living situation today?: I choose not to answer this question Within the past 12 months, did the food you bought not last and you didn't have the money to get more?: I choose not to answer this question Within the past 12 months, did you worry whether your food would run out before you got money to buy more?: I choose not to answer this question Do you have trouble paying for medicines?: I choose not to answer this question Do you have trouble getting transportation to medical appointments?: I choose not to answer this question Do you have trouble paying your heating and electricity bill?: I choose not to answer this question Do you have trouble taking care of your child, family member or friend?: I choose not to answer this question Do you have trouble with day-to-day activities such as bathing, preparing meals, shopping, managing finances, etc.?: I choose not to answer this question Are you currently unemployed and looking for a job?: I choose not to answer this question Are you interested in more education?: I choose not to answer this question Please select the resources that you would like help with: None Currently or been in a relationship where the following occur: I choose not to answer THRIVE Score: 0 AUDIT C Alcohol Use Questionnaire (AUDIT-C) 1. How often do you have a drink containing alcohol?: 2-4 times a month 2. How many drinks containing alcohol do you have on a typical day when you are drinking?: 3 or 4 3. How often do you have six or more drinks on one occasion?: Less than monthly Total Score: 4 VALERIA-7 AMB Questionnaire VALERIA-7 Date VALERIA - 7 assessed: 04/08/24 Feeling nervous, anxious, or on edge: 3 = Nearly every day Not being able to stop or control worryin = Nearly every day Worrying too much about different things: 3 = Nearly every day Trouble relaxin = Nearly every day Being so restless that it is hard to sit still: 2 = More than half the days Becoming easily annoyed or irritable: 3 = Nearly every day Feeling afraid as if something awful might happen: 3 = Nearly every day Total VALERIA-7 score (0-4 normal; 5-9 mild; 10-14 moderate; 15-21 severe): 20 Source: Developed by Drs. Tiago Garsia, Estela Edwards, Colton Pearson and colleagues, with an educational marv from [employer]. VALERIA-7 Assessment Billing VALERIA-7 Assessment Tool: VALERIA-7 Assessment 60575 Review of Systems Const All systems reviewed & are unremarkable except as noted in HPI and below Eyes Reports no additional complaints ENT Reports no additional complaints Card Reports no additional complaints Resp Reports no additional complaints GI Reports no additional complaints Reports no additional complaints Physical exam (Primary Care) Vital Signs: Last Vital Signs Pulse 98 04/08/24 12:13 BP 128/80 04/08/24 12:13 Pulse Ox 98 04/08/24 12:13 Oxygen Delivery Method Room Air 04/08/24 12:13 BMI result Body Mass Index 31.0 Tobacco/Smoking Status: Tobacco use Status Tobacco use date assessed 04/08/24 04/08/24 12:21 Patient Tobacco Use Status Current everyday Tobacco 04/08/24 12:21 Tobacco use type Cigarette 04/08/24 12:21 e-Cigarette/Vaping Use Former Use 04/08/24 12:21 Thrive Assessment: Date of Thrive Assessment Date Thrive assessed 04/08/24 04/08/24 12:21 Currently or been in a relationship where the following occur: I choose not to answer Const General: no acute distress HENMT Head: Yes normal to inspection Ears: hearing grossly normal bilaterally General nose exam: Normal external nose present Face and sinus: Yes normal facial exam Mouth: Normal oral and palatal mucosa present Throat: Yes posterior oropharynx normal Eyes General: appearance normal, both eyes and all related structures Neck Neck: Yes no lymphadenopathy and Yes supple Resp Effort & Inspection: normal respiratory effort Auscultation: clear to auscultation bilaterally Cardio Rhythm: regular rhythm Heart sounds: S1 normal heart sound present and S2 normal heart sound present GI Inspection: Yes normal to inspection Palpation (GI): Soft to palpation Percussion: Yes normal to percussion Auscultation: normal bowel sounds Coding Level of Care Code Est Pt Prev Care 40-64y(40759) Diagnoses Cardiomyopathy I42.9 DM type 2 (diabetes mellitus, type 2) E11.9 Peripheral neuropathy G62.9 CAD (coronary artery disease) I25.10 Depression F32.9 Annual physical exam Z00.00 Additional Codes VALERIA-7 Assessment Billing - VALERIA-7 Assessment Tool: VALERIA-7 Assessment 98516 ([id number]) Assessment & Plan Assessment & Plan (1) Cardiomyopathy: Comment: Echo 01/2020 EF 50-55%, mild Code(s): I42.9 - Cardiomyopathy, unspecified Category: Medical Plan: Follow-up with the Cardiology patient is due for repeat echocardiogram but declined (2) DM type 2 (diabetes mellitus, type 2): Comment: 2007 Code(s): E11.9 - Type 2 diabetes mellitus without complications Category: Medical Plan: ADA diet regular physical activity discussed with the patient check A1c today, follow-up in 6 months with a fasting labs before (3) Peripheral neuropathy: Code(s): G62.9 - Polyneuropathy, unspecified Category: Medical Plan: Restart gabapentin, follow-up with Neurology (4) CAD (coronary artery disease): Comment: s/p LAD sent 01/2020 Code(s): I25.10 - Atherosclerotic heart disease of [place] coronary artery without angina pectoris Category: Medical Plan: Restart aspirin and atorvastatin (5) Depression: Comment: Patient is established with psychiatrist and therapist Code(s): F32.9 - Major depressive disorder, single episode, unspecified Category: Medical Plan: Follow-up with psychiatry (6) Annual physical exam: Code(s): Z00.00 - Encounter for general adult medical examination without abnormal findings Category: Medical Plan: Patient will schedule mammogram and colonoscopy Orders: Orders Hemoglobin A1c Today E11.9 - Type 2 diabetes mellitus without complications, G62.9 - Polyneuropathy, unspecified, I42.9 - Cardiomyopathy, unspecified Comprehensive [place]. Panel Fast Today E11.9 - Type 2 diabetes mellitus without complications, G62.9 - Polyneuropathy, unspecified, I42.9 - Cardiomyopathy, unspecified Complete Blood Count Auto Diff Today E11.9 - Type 2 diabetes mellitus without complications, G62.9 - Polyneuropathy, unspecified, I42.9 - Cardiomyopathy, unspecified Hemoglobin A1c 6 Months E11.9 - Type 2 diabetes mellitus without complications, G62.9 - Polyneuropathy, unspecified, Z00.00 - Encounter for general adult medical examination without abnormal findings Lipid Panel Today E11.9 - Type 2 diabetes mellitus without complications, G62.9 - Polyneuropathy, unspecified, I42.9 - Cardiomyopathy, unspecified Microalbumin, Random (w Creat) Today E11.9 - Type 2 diabetes mellitus without complications, G62.9 - Polyneuropathy, unspecified, I42.9 - Cardiomyopathy, unspecified TSH reflex Free T4 Today E11.9 - Type 2 diabetes mellitus without complications, G62.9 - Polyneuropathy, unspecified, I42.9 - Cardiomyopathy, unspecified Comprehensive [place]. Panel Fast 6 Months E11.9 - Type 2 diabetes mellitus without complications, G62.9 - Polyneuropathy, unspecified, Z00.00 - Encounter for general adult medical examination without abnormal findings Lipid Panel 6 Months E11.9 - Type 2 diabetes mellitus without complications, G62.9 - Polyneuropathy, unspecified, Z00.00 - Encounter for general adult medical examination without abnormal findings Complete Blood Count Auto Diff 6 Months E11.9 - Type 2 diabetes mellitus without complications, G62.9 - Polyneuropathy, unspecified, Z00.00 - Encounter for general adult medical examination without abnormal findings Microalbumin, Random (w Creat) 6 Months E11.9 - Type 2 diabetes mellitus without complications, G62.9 - Polyneuropathy, unspecified, Z00.00 - Encounter for general adult medical examination without abnormal findings Medications: New gabapentin 800 mg PO QID 360 tabs 3RF gabapentin 800 mg PO QID 360 tabs 3RF Refilled atorvastatin 80 mg PO DAILY 90 tabs 3RF aspirin 81 mg PO DAILY 90 tabs 3RF Discontinued white petrolatum-mineral oil (Dermacerin topical cream) Discontinued Reason: Doctor's Order 1 appl See Protocol topical DAILY 30 days PRN 100 grams 0RF Dry Skin gabapentin take until able to restart lyrica 150 mg PO TID. you may immediately stop gabapentin and start lyrica once you have the lyrica in hand. Discontinued Reason: Doctor's Order 900 mg (3 x 300 mg) PO QID 10 days 120 caps 0RF neuropathic pain bupropion HCl XL Discontinued Reason: Doctor's Order 300 mg PO DAILY 90 tabs 1RF clopidogrel Discontinued Reason: Doctor's Order 75 mg PO DAILY 90 tabs 1RF duloxetine Discontinued Reason: Doctor's Order 60 mg PO DAILY 90 caps 1RF pantoprazole Discontinued Reason: Doctor's Order 20 mg PO DAILY 30 days 90 tabs 1RF prazosin Discontinued Reason: Doctor's Order 1 mg See Protocol PO BEDTIME 90 caps 1RF sennosides-docusate sodium 8.6-50 mg (Senna Plus) Discontinued Reason: Doctor's Order 1 tab PO BID 30 days 180 tabs 1RF carvedilol Future refills from Cardiology Discontinued Reason: Doctor's Order 12.5 mg PO BID 90 tabs 0RF gabapentin Discontinued Reason: Doctor's Order 600 mg PO TID 90 tabs 0RF fludrocortisone Discontinued Reason: Doctor's Order 0.1 mg PO DAILY 90 tabs 1RF midodrine Discontinued Reason: Doctor's Order 5 mg PO TID 30 days 270 tabs 1RF ibuprofen Discontinued Reason: Doctor's Order 800 mg PO BID PRN 60 tabs 0RF Pain, Moderate (Pain Scale 4-6
[2024-04-08 12:13] VITALS: BP 128/80; PULSE 98; O2SAT 98; BMI 31.0
== END 2024-04-08 13:15 | disposition home or self-care (01) ==
LOC: HO.HMCC 11:52
PROVIDERS: PCP Internal Medicine; Visit Provider Internal Medicine
DX: I42.9 Cardiomyopathy, unspecified (principal); E11.9 Type 2 diabetes mellitus without complications; G62.9 Polyneuropathy, unspecified; I25.10 Atherosclerotic heart disease of native coronary artery without angina pectoris; F32.9 Major depressive disorder, single episode, unspecified; Z00.00 Encounter for general adult medical examination without abnormal findings

== ENCOUNTER 2024-04-08 11:52 | Outpatient (REF) | payer OTHER, SELFPAY ==
[2024-04-08 16:45] LABS: MANUAL DIFF FLAG NO
[2024-04-08 16:50] LABS: Basophils Percent Auto 0.5 % (0-2); Eosinophils Absolute Auto 0.1 X10*3/uL (0.0-0.4); Eosinophils Percent Auto 1.1 % (0-4); Hematocrit 47.9 % (37.0-47.0); Hemoglobin 15.7 g/dl (12.0-16.0); Imm Gran Abs Auto 0.03 X10*3/uL (0.00-0.03); Imm Gran Pct Auto 0.4 % (0.0-0.4); Lymphocytes Absolute Auto 3.1 X10*3/uL (1.2-4.9); Lymphocytes Percent Auto 40.9 % (20-40); Mean Corpuscular HGB Conc 32.8 g/dl (31.0-35.0); Mean Corpuscular Hemoglobin 31.2 pg (27.0-33.0); Mean Platelet Volume 11.1 fL (9.4-12.3); Monocytes Absolute Auto 0.4 X10*3/uL (0.1-1.2); Monocytes Percent Auto 5.6 % (2-11); Neutrophils Absolute Auto 3.9 x10*3/uL (2.0-8.3); Neutrophils Percent Auto 51.5 % (45-73); Platelet Count 261 X10*3/uL (160-400); Red Blood Count 5.04 X10*6/uL (4.20-5.50); Red Cell Distribution Width 13.6 % (11.0-16.0); White Blood Count 7.5 X10*3/uL (4.8-10.8)
[2024-04-08 17:12] LABS: Alanine Aminotransferase 11 U/L (0-31); Albumin Level 4.2 g/dL (3.5-5.0); Alkaline Phosphatase 80 U/L (39-117); Anion Gap 16 (12-20); Aspartate Amino Transferase 29 U/L (5-31); Bilirubin Total 1.4 mg/dL (0.0-1.0); Blood Urea Nitrogen 5 mg/dL (9-16); Calcium 9.7 mg/dL (8.4-10.2); Carbon Dioxide 24 mmol/L (22-29); Chloride 104 mmol/L (96-108); Cholesterol 243 mg/dL (<200); Estimated Average Glucose 120 mg/dL; Estimated Glomerular Filt Rate > 60; Glucose Fasting 103 mg/dL (60-99); HDL Cholesterol 65 mg/dL (>40); Hemoglobin A1C 162.8313 umol/L; Hemoglobin A1c % 5.8 % (<6.0); LDL Cholesterol Calculated 153 mg/dL (<100); Potassium 3.9 mmol/L (3.3-5.1); Sodium 140 mmol/L (135-145); Total Hemoglobin (HGBA1C) 4061.9868 umol/L; Total Protein 7.4 g/dL (6.5-8.0); Triglycerides 125 mg/dL (<150)
[2024-04-08 17:40] LABS: Creatinine Urine 36.71 mg/dL; Microalbumin Urine < 5.0 mg/L
== END 2024-04-08 11:53 | disposition home or self-care (01) ==
LOC: HO.HMGCLDS 11:52
PROVIDERS: PCP Internal Medicine; Visit Provider Internal Medicine
DX: Z00.00 Encounter for general adult medical examination without abnormal findings (principal); I42.9 Cardiomyopathy, unspecified; E11.9 Type 2 diabetes mellitus without complications; G62.9 Polyneuropathy, unspecified; I25.10 Atherosclerotic heart disease of native coronary artery without angina pectoris; F32.9 Major depressive disorder, single episode, unspecified
CPT/HCPCS: 36415; 80053; 80061; 82043; 82570; 83036; 84443; 85025; 96127; 99396